=== PATIENT | male | born 1955 | race Caucasian/White ===

== ENCOUNTER 2023-03-02 16:53 | Observation (INO) | payer MEDICARE, SELFPAY ==
[2023-03-02] VITALS (38 sets, daily range): BP systolic 104–161; BP diastolic 56–72; PULSE 68–95; RESP 8–33; TEMP 36.8; O2SAT 93–100; BMI 27.2
--- NOTE | 2023-03-02 17:18 | ED_ITS ---
Documented by User: Kesha Martinez MD 03/04/23 08:45 HPI - Weakness General Chief complaint: Weakness Stated complaint: weakness, vomitting Time Seen by Provider: 03/02/23 17:16 Source: patient Mode of arrival: Wheelchair Limitations: no limitations History of Present Illness HPI Narrative: pt presents to the emergency department complaining of weakness. Patient states since yesterday been having nausea, vomiting, and diarrhea. He is vomiting bile. Has not been vomiting any fluid. He states the diarrhea is watery. He denies any hematemesis, melena, hematochezia. Denies any abdominal pain.Patient states he ate a lot of watermelon yesterday thought that that would account for the diarrhea but not with the vomiting. Related Data Home Medications Medication Instructions Recorded Confirmed apixaban 2.5 mg tablet (Eliquis) 2.5 mg PO BID 02/28/23 03/03/23 darunavir 800 mg-cobicistat 150 mg 1 tab PO DAILY 02/28/23 03/03/23 tablet (Prezcobix) digoxin 125 mcg (0.125 mg) tablet 125 mcg PO DAILY 02/28/23 03/03/23 (Lanoxin) dolutegravir 50 mg tablet (Tivicay) 50 mg PO DAILY 02/28/23 03/03/23 empagliflozin 10 mg tablet 10 mg PO QAM 02/28/23 03/03/23 (Jardiance) isosorbide mononitrate 30 mg 30 mg PO QAM 02/28/23 03/03/23 tablet,extended release 24 hr levothyroxine 50 mcg capsule 50 mcg PO DAILY 02/28/23 03/03/23 metformin 1,000 mg tablet 1,000 mg PO BID 02/28/23 03/03/23 metoprolol succinate 25 mg 25 mg PO DAILY 02/28/23 03/03/23 tablet,extended release 24 hr nitroglycerin 0.4 mg sublingual 0.4 mg sublingual Q5M PRN chest 02/28/23 03/03/23 tablet pain pregabalin 50 mg capsule (Lyrica) 50 mg PO TID 02/28/23 03/03/23 rosuvastatin 20 mg tablet (Crestor) 20 mg PO DAILY 02/28/23 03/03/23 tamsulosin 0.4 mg capsule (Flomax) 0.4 mg PO DAILY 02/28/23 03/03/23 pantoprazole 40 mg tablet,delayed 40 mg PO DAILY 03/03/23 03/03/23 release (Protonix) tramadol 50 mg tablet 50 mg PO Q12H PRN pain 03/03/23 03/03/23 Allergies Allergy/AdvReac Type Severity Reaction Status Date / Time ciprofloxacin Allergy Unknown Verified 02/28/23 14:44 Sulfa (Sulfonamide Allergy Unknown Verified 02/28/23 14:44 Antibiotics) Review of Systems ROS Status of ROS 10 or more systems reviewed and unremarkable except as noted in history and below [facility] Medical History (Updated 03/02/23 @ 23:49 by Ollie Marc MD) Surgical History (Updated 02/28/23 @ 14:30 by Andria Conrad) Family History (Updated 02/28/23 @ 14:47 by Andria Conrad) Sister Family history of cancer Ovarian cancer Other Family history of diabetes mellitus Heart disease Hemochromatosis Peripheral vascular disease Social History (Updated 02/28/23 @ 14:45 by Andria Conrad) Within the past year, how often did you have a drink containing alcohol: never Score interpretation: A score less than 4 is consistent with normal alcohol consumption. Smoking status: Never smoker Non-prescribed substance use: denies use Gender Identity: male Exam Narrative Exam Narrative: Nurses notes and vital signs reviewed and patient is not hypoxic. General: Nontoxic, Chronically ill, and in no apparent distress. Skin: Warm, dry, no pallor noted. No Rash Head: Normocephalic, atraumatic. Neck: Supple, non-tender. Eye: Pupils are equal, round and EOMI. No scleral icterus. Ears, Nose, Mouth, and Throat: TM clear, no posterior oropharynx erythema or nasal mucosal hypertrophy, uvula is mid-line Oral mucosa is dry Cardiovascular: Regular Rate and Rhythm without murmur, gallop or rub. Respiratory: No accessory muscle use or respiratory distress. Lungs are clear to auscultation, no wheezing, rales or rhonchi Chest Wall: no tenderness Back: No midline thoracic or lumbar vertebral tenderness. No CVA tenderness Musculoskeletal: normal ROM, no calf or popliteal tenderness, no lower extremity edema/swelling GI: Abdomen is soft, non-distended. Normal bowel sounds. No masses appreciated. No tenderness to palpation. No rebound, guarding, or rigidity noted. Neurological: A&O x4. No cranial nerve dysfunction observed. No truncal ataxia. Moves all extremities. Sensation intact. Psychiatric: Cooperative and interactive. Normal mood and affect. Constitutional Vital Signs - 24 hr 03/02/23 16:59 03/02/23 21:13 03/02/23 21:15 Temperature 98.3 F Pulse Rate 77 Pulse Rate [Monitor] 95 H Respiratory Rate 20 20 Blood Pressure Blood Pressure [Left Arm] 104/60 Pulse Oximetry 98 99 Oxygen Delivery Method Room Air Room Air 03/02/23 21:20 03/02/23 17:39 03/02/23 17:40 Temperature Pulse Rate 80 87 88 Pulse Rate [Monitor] Respiratory Rate 20 15 25 H Blood Pressure Blood Pressure [Left Arm] Pulse Oximetry 99 Oxygen Delivery Method 03/02/23 17:50 03/02/23 18:00 03/02/23 18:10 Temperature Pulse Rate 90 83 79 Pulse Rate [Monitor] Respiratory Rate 21 31 H 19 Blood Pressure Blood Pressure [Left Arm] Pulse Oximetry 99 95 94 L Oxygen Delivery Method 03/02/23 18:20 03/02/23 18:30 03/02/23 18:40 Temperature Pulse Rate 81 78 79 Pulse Rate [Monitor] Respiratory Rate 32 H 24 21 Blood Pressure Blood Pressure [Left Arm] Pulse Oximetry 97 96 96 Oxygen Delivery Method 03/02/23 18:50 03/02/23 19:00 03/02/23 19:10 Temperature Pulse Rate 75 79 77 Pulse Rate [Monitor] Respiratory Rate 32 H 26 H 33 H Blood Pressure Blood Pressure [Left Arm] Pulse Oximetry 97 97 97 Oxygen Delivery Method 03/02/23 19:20 03/02/23 19:30 03/02/23 19:40 Temperature Pulse Rate 79 82 76 Pulse Rate [Monitor] Respiratory Rate 23 17 19 Blood Pressure Blood Pressure [Left Arm] Pulse Oximetry 98 93 L 95 Oxygen Delivery Method 03/02/23 19:50 03/02/23 20:00 03/02/23 20:10 Temperature Pulse Rate 79 85 82 Pulse Rate [Monitor] Respiratory Rate 25 H 24 27 H Blood Pressure Blood Pressure [Left Arm] Pulse Oximetry 93 L Oxygen Delivery Method 03/02/23 20:20 03/02/23 20:30 03/02/23 20:40 Temperature Pulse Rate 82 81 87 Pulse Rate [Monitor] Respiratory Rate 21 27 H 15 Blood Pressure Blood Pressure [Left Arm] Pulse Oximetry Oxygen Delivery Method 03/02/23 20:46 03/02/23 20:46 03/02/23 21:03 Temperature Pulse Rate 78 88 77 Pulse Rate [Monitor] Respiratory Rate 30 H 22 30 H Blood Pressure 136/69 H Blood Pressure [Left Arm] Pulse Oximetry 97 97 97 Oxygen Delivery Method 03/02/23 21:10 03/02/23 21:20 03/02/23 21:30 Temperature Pulse Rate 79 79 79 Pulse Rate [Monitor] Respiratory Rate 27 H 30 H 29 H Blood Pressure Blood Pressure [Left Arm] Pulse Oximetry 100 96 98 Oxygen Delivery Method 03/02/23 21:40 03/02/23 21:47 03/02/23 21:47 Temperature Pulse Rate 75 90 79 Pulse Rate [Monitor] Respiratory Rate 26 H 32 H 31 H Blood Pressure 130/59 H Blood Pressure [Left Arm] Pulse Oximetry 93 L 99 95 Oxygen Delivery Method 03/02/23 22:00 03/02/23 22:00 03/02/23 22:30 Temperature Pulse Rate 85 83 86 Pulse Rate [Monitor] Respiratory Rate 20 30 H 17 Blood Pressure 139/64 H 139/64 H 129/56 H Blood Pressure [Left Arm] Pulse Oximetry 98 96 Oxygen Delivery Method 03/02/23 22:58 03/02/23 23:00 03/02/23 23:10 Temperature Pulse Rate 84 79 78 Pulse Rate [Monitor] Respiratory Rate 24 21 28 H Blood Pressure Blood Pressure [Left Arm] Pulse Oximetry 95 99 96 Oxygen Delivery Method Course Vital Signs Vital signs: Vital Signs Temperature 98.3 F 03/02/23 16:59 Pulse Rate 95 H 03/02/23 16:59 Respiratory Rate 20 03/02/23 16:59 Blood Pressure 104/60 03/02/23 16:59 Pulse Oximetry 98 03/02/23 16:59 Oxygen Delivery Method Room Air 03/02/23 16:59 Temperature 97.2 F L 03/04/23 06:30 Pulse Rate 63 03/04/23 08:06 Respiratory Rate 20 03/04/23 06:30 Blood Pressure 123/72 H 03/04/23 06:30 Pulse Oximetry 98 03/04/23 06:30 Oxygen Delivery Method Room Air 03/04/23 06:30 MDM - Weakness MDM Narrative Medical decision making narrative: pt was given Zofran, a liter of fluids. Labs and radiologic studies are pending at this time. Patient was signed out to Dr. Marc at the end of my shift awaiting repeat metabolic profile. Re evaluation, and disposition. Lab Data Labs: Lab Results 03/02/23 03/02/23 03/02/23 Range/Units 17:50 18:35 18:45 WBC 7.1 (4.0-11.0) 10^3/uL RBC 6.02 (4.70-6.10) 10^6/uL Hgb 17.7 (14.0-18.0) g/dL Hct 53.9 (42.0-54.0) % MCV 89.5 (80.0-94.0) fL MCH 29.4 (25.9-34.0) pg MCHC 32.8 (29.9-35.2) g/dL RDW 13.8 (11.0-15.0) % Plt Count 160 (150-450) 10^3/uL MPV 10.0 (9.5-13.5) fL Neut % (Auto) 88.6 H (43.0-75.0) % Lymph % (Auto) 4.8 L (20.5-60.0) % Simpson % (Auto) 5.2 (1.7-12.0) % Eos % (Auto) 0.7 L (0.9-7.0) % Baso % (Auto) 0.3 (0.2-2.0) % Neut # (Auto) 6.2 (1.4-6.5) 10^3/uL Lymph # (Auto) 0.3 L (1.2-3.8) 10^3/uL Simpson # (Auto) 0.4 (0.3-0.8) 10^3/uL Eos # (Auto) 0.1 (0.0-0.7) 10^3/uL Baso # (Auto) 0.0 (0.0-0.1) 10^3/uL Abs Immat Gran (auto) 0.03 (0.00-0.03) 10^3/uL Imm/Tot Granulo (auto) 0.4 (0.0-0.5) % Sodium 134 L 133 L (136-145) mmol/L Potassium 7.0 H* 7.3 H* (3.5-5.1) mmol/L Chloride 101 103 (98-107) mmol/L Carbon Dioxide 23.3 22.6 (21.0-32.0) mmol/L Anion Gap 16.7 14.7 BUN 42.0 H 42.0 H (7.0-18.0) mg/dL Creatinine 2.51 H 2.42 H (0.70-1.30) mg/dL Est GFR ( Amer) 31 L 32 L (>=60) Est GFR (Non-Af Amer) 26 L 27 L (>=60) BUN/Creatinine Ratio 16.7 17.4 Glucose 205 H 196 H (74-106) mg/dL Calcium 9.5 8.6 (8.5-10.1) mg/dL Magnesium 2.2 (1.8-2.4) mg/dL Total Bilirubin 0.5 (0.2-1.0) mg/dL AST 21 (15-37) U/L ALT 26 (16-63) U/L Alkaline Phosphatase 87 (46-116) U/L Total Protein 9.3 H (6.4-8.2) g/dL Albumin 4.5 (3.4-5.0) g/dL Globulin 4.8 g/dL Albumin/Globulin Ratio 0.9 Lipase 205.0 (73.0-393.0) U/L Urine Color (YELLOW) Urine Clarity (CLEAR) Urine pH (5.0-9.0) Ur Specific [place] (1.005-1.025) Urine Protein (NEG/TRACE) mg/dL Urine Glucose (UA) (NEGATIVE) mg/dL Urine Ketones (NEGATIVE) mg/dL Urine Occult Blood (NEGATIVE) Urine Nitrite (NEGATIVE) Urine Bilirubin (NEGATIVE) Urine Urobilinogen (0.2-1.0) EU/dL Ur Leukocyte Esterase (NEGATIVE) Digoxin 1.1 (0.9-2.0) ng/mL 03/02/23 03/02/23 Range/Units 22:00 23:00 WBC (4.0-11.0) 10^3/uL RBC (4.70-6.10) 10^6/uL Hgb (14.0-18.0) g/dL Hct (42.0-54.0) % MCV (80.0-94.0) fL MCH (25.9-34.0) pg MCHC (29.9-35.2) g/dL RDW (11.0-15.0) % Plt Count (150-450) 10^3/uL MPV (9.5-13.5) fL Neut % (Auto) (43.0-75.0) % Lymph % (Auto) (20.5-60.0) % Simpson % (Auto) (1.7-12.0) % Eos % (Auto) (0.9-7.0) % Baso % (Auto) (0.2-2.0) % Neut # (Auto) (1.4-6.5) 10^3/uL Lymph # (Auto) (1.2-3.8) 10^3/uL Simpson # (Auto) (0.3-0.8) 10^3/uL Eos # (Auto) (0.0-0.7) 10^3/uL Baso # (Auto) (0.0-0.1) 10^3/uL Abs Immat Gran (auto) (0.00-0.03) 10^3/uL Imm/Tot Granulo (auto) (0.0-0.5) % Sodium 135 L (136-145) mmol/L Potassium 4.6 (3.5-5.1) mmol/L Chloride 104 (98-107) mmol/L Carbon Dioxide 21.2 (21.0-32.0) mmol/L Anion Gap 14.4 BUN 40.0 H (7.0-18.0) mg/dL Creatinine 2.34 H (0.70-1.30) mg/dL Est GFR ( Amer) 34 L (>=60) Est GFR (Non-Af Amer) 28 L (>=60) BUN/Creatinine Ratio 17.1 Glucose 160 H (74-106) mg/dL Calcium 8.7 (8.5-10.1) mg/dL Magnesium (1.8-2.4) mg/dL Total Bilirubin (0.2-1.0) mg/dL AST (15-37) U/L ALT (16-63) U/L Alkaline Phosphatase (46-116) U/L Total Protein (6.4-8.2) g/dL Albumin (3.4-5.0) g/dL Globulin g/dL Albumin/Globulin Ratio Lipase (73.0-393.0) U/L Urine Color Lt. yellow (YELLOW) Urine Clarity Clear (CLEAR) Urine pH 5.5 (5.0-9.0) Ur Specific [place] 1.015 (1.005-1.025) Urine Protein Negative (NEG/TRACE) mg/dL Urine Glucose (UA) >=1000 A (NEGATIVE) mg/dL Urine Ketones Negative (NEGATIVE) mg/dL Urine Occult Blood Negative (NEGATIVE) Urine Nitrite Negative (NEGATIVE) Urine Bilirubin Negative (NEGATIVE) Urine Urobilinogen 0.2 (0.2-1.0) EU/dL Ur Leukocyte Esterase Negative (NEGATIVE) Digoxin (0.9-2.0) ng/mL Discharge Plan Discharge Chief Complaint: Weakness Clinical Impression: Weakness generalized, Gastroenteritis, Acute kidney insufficiency, Acute hyperkalemia Patient Disposition: Admitted as Observation Condition: Fair Discharge Date/Time: 03/03/23 00:18 Documented by User: Ollie Marc MD 03/02/23 23:49 HPI - Weakness General Chief complaint: Weakness Stated complaint: weakness, vomitting Time Seen by Provider: 03/02/23 17:16 Related Data Home Medications Medication Instructions Recorded Confirmed apixaban 2.5 mg tablet (Eliquis) 2.5 mg PO BID 02/28/23 03/03/23 darunavir 800 mg-cobicistat 150 mg 1 tab PO DAILY 02/28/23 03/03/23 tablet (Prezcobix) digoxin 125 mcg (0.125 mg) tablet 125 mcg PO DAILY 02/28/23 03/03/23 (Lanoxin) dolutegravir 50 mg tablet (Tivicay) 50 mg PO DAILY 02/28/23 03/03/23 empagliflozin 10 mg tablet 10 mg PO QAM 02/28/23 03/03/23 (Jardiance) isosorbide mononitrate 30 mg 30 mg PO QAM 02/28/23 03/03/23 tablet,extended release 24 hr levothyroxine 50 mcg capsule 50 mcg PO DAILY 02/28/23 03/03/23 metformin 1,000 mg tablet 1,000 mg PO BID 02/28/23 03/03/23 metoprolol succinate 25 mg 25 mg PO DAILY 02/28/23 03/03/23 tablet,extended release 24 hr nitroglycerin 0.4 mg sublingual 0.4 mg sublingual Q5M PRN chest 02/28/23 03/03/23 tablet pain pregabalin 50 mg capsule (Lyrica) 50 mg PO TID 02/28/23 03/03/23 rosuvastatin 20 mg tablet (Crestor) 20 mg PO DAILY 02/28/23 03/03/23 tamsulosin 0.4 mg capsule (Flomax) 0.4 mg PO DAILY 02/28/23 03/03/23 pantoprazole 40 mg tablet,delayed 40 mg PO DAILY 03/03/23 03/03/23 release (Protonix) tramadol 50 mg tablet 50 mg PO Q12H PRN pain 03/03/23 03/03/23 Allergies Allergy/AdvReac Type Severity Reaction Status Date / Time ciprofloxacin Allergy Unknown Verified 02/28/23 14:44 Sulfa (Sulfonamide Allergy Unknown Verified 02/28/23 14:44 Antibiotics) [facility] Medical History (Updated 03/02/23 @ 23:49 by Ollie Marc MD) Surgical History (Updated 02/28/23 @ 14:30 by Andria Conrad) Family History (Updated 02/28/23 @ 14:47 by Andria Conrad) Sister Family history of cancer Ovarian cancer Other Family history of diabetes mellitus Heart disease Hemochromatosis Peripheral vascular disease Social History (Updated 02/28/23 @ 14:45 by Andria Conrad) Within the past year, how often did you have a drink containing alcohol: never Score interpretation: A score less than 4 is consistent with normal alcohol consumption. Smoking status: Never smoker Non-prescribed substance use: denies use Gender Identity: male Exam Constitutional Vital Signs - 24 hr 03/02/23 16:59 03/02/23 21:13 03/02/23 21:15 Temperature 98.3 F Pulse Rate 77 Pulse Rate [Monitor] 95 H Respiratory Rate 20 20 Blood Pressure Blood Pressure [Left Arm] 104/60 Pulse Oximetry 98 99 Oxygen Delivery Method Room Air Room Air 03/02/23 21:20 03/02/23 17:39 03/02/23 17:40 Temperature Pulse Rate 80 87 88 Pulse Rate [Monitor] Respiratory Rate 20 15 25 H Blood Pressure Blood Pressure [Left Arm] Pulse Oximetry 99 Oxygen Delivery Method 03/02/23 17:50 03/02/23 18:00 03/02/23 18:10 Temperature Pulse Rate 90 83 79 Pulse Rate [Monitor] Respiratory Rate 21 31 H 19 Blood Pressure Blood Pressure [Left Arm] Pulse Oximetry 99 95 94 L Oxygen Delivery Method 03/02/23 18:20 03/02/23 18:30 03/02/23 18:40 Temperature Pulse Rate 81 78 79 Pulse Rate [Monitor] Respiratory Rate 32 H 24 21 Blood Pressure Blood Pressure [Left Arm] Pulse Oximetry 97 96 96 Oxygen Delivery Method 03/02/23 18:50 03/02/23 19:00 03/02/23 19:10 Temperature Pulse Rate 75 79 77 Pulse Rate [Monitor] Respiratory Rate 32 H 26 H 33 H Blood Pressure Blood Pressure [Left Arm] Pulse Oximetry 97 97 97 Oxygen Delivery Method 03/02/23 19:20 03/02/23 19:30 03/02/23 19:40 Temperature Pulse Rate 79 82 76 Pulse Rate [Monitor] Respiratory Rate 23 17 19 Blood Pressure Blood Pressure [Left Arm] Pulse Oximetry 98 93 L 95 Oxygen Delivery Method 03/02/23 19:50 03/02/23 20:00 03/02/23 20:10 Temperature Pulse Rate 79 85 82 Pulse Rate [Monitor] Respiratory Rate 25 H 24 27 H Blood Pressure Blood Pressure [Left Arm] Pulse Oximetry 93 L Oxygen Delivery Method 03/02/23 20:20 03/02/23 20:30 03/02/23 20:40 Temperature Pulse Rate 82 81 87 Pulse Rate [Monitor] Respiratory Rate 21 27 H 15 Blood Pressure Blood Pressure [Left Arm] Pulse Oximetry Oxygen Delivery Method 03/02/23 20:46 03/02/23 20:46 03/02/23 21:03 Temperature Pulse Rate 78 88 77 Pulse Rate [Monitor] Respiratory Rate 30 H 22 30 H Blood Pressure 136/69 H Blood Pressure [Left Arm] Pulse Oximetry 97 97 97 Oxygen Delivery Method 03/02/23 21:10 03/02/23 21:20 03/02/23 21:30 Temperature Pulse Rate 79 79 79 Pulse Rate [Monitor] Respiratory Rate 27 H 30 H 29 H Blood Pressure Blood Pressure [Left Arm] Pulse Oximetry 100 96 98 Oxygen Delivery Method 03/02/23 21:40 03/02/23 21:47 03/02/23 21:47 Temperature Pulse Rate 75 90 79 Pulse Rate [Monitor] Respiratory Rate 26 H 32 H 31 H Blood Pressure 130/59 H Blood Pressure [Left Arm] Pulse Oximetry 93 L 99 95 Oxygen Delivery Method 03/02/23 22:00 03/02/23 22:00 03/02/23 22:30 Temperature Pulse Rate 85 83 86 Pulse Rate [Monitor] Respiratory Rate 20 30 H 17 Blood Pressure 139/64 H 139/64 H 129/56 H Blood Pressure [Left Arm] Pulse Oximetry 98 96 Oxygen Delivery Method 03/02/23 22:58 03/02/23 23:00 03/02/23 23:10 Temperature Pulse Rate 84 79 78 Pulse Rate [Monitor] Respiratory Rate 24 21 28 H Blood Pressure Blood Pressure [Left Arm] Pulse Oximetry 95 99 96 Oxygen Delivery Method Course Vital Signs Vital signs: Vital Signs Temperature 98.3 F 03/02/23 16:59 Pulse Rate 95 H 03/02/23 16:59 Respiratory Rate 20 03/02/23 16:59 Blood Pressure 104/60 03/02/23 16:59 Pulse Oximetry 98 03/02/23 16:59 Oxygen Delivery Method Room Air 03/02/23 16:59 Temperature 97.2 F L 03/04/23 06:30 Pulse Rate 63 03/04/23 08:06 Respiratory Rate 20 03/04/23 06:30 Blood Pressure 123/72 H 03/04/23 06:30 Pulse Oximetry 98 03/04/23 06:30 Oxygen Delivery Method Room Air 03/04/23 06:30 MDM - Weakness Medical Records Medical records narrative: care transferred at change of shift. patient presented with recurrent nausea, vomiting and diarrhea. Found to be dehydrated and also hyperkalemic. Hyperkalemia treated in the ED successfully. Discussed with the hospitalist and patient admitted to the hospitalist service Lab Data Labs: Lab Results 03/02/23 03/02/23 03/02/23 Range/Units 17:50 18:35 18:45 WBC 7.1 (4.0-11.0) 10^3/uL RBC 6.02 (4.70-6.10) 10^6/uL Hgb 17.7 (14.0-18.0) g/dL Hct 53.9 (42.0-54.0) % MCV 89.5 (80.0-94.0) fL MCH 29.4 (25.9-34.0) pg MCHC 32.8 (29.9-35.2) g/dL RDW 13.8 (11.0-15.0) % Plt Count 160 (150-450) 10^3/uL MPV 10.0 (9.5-13.5) fL Neut % (Auto) 88.6 H (43.0-75.0) % Lymph % (Auto) 4.8 L (20.5-60.0) % Simpson % (Auto) 5.2 (1.7-12.0) % Eos % (Auto) 0.7 L (0.9-7.0) % Baso % (Auto) 0.3 (0.2-2.0) % Neut # (Auto) 6.2 (1.4-6.5) 10^3/uL Lymph # (Auto) 0.3 L (1.2-3.8) 10^3/uL Simpson # (Auto) 0.4 (0.3-0.8) 10^3/uL Eos # (Auto) 0.1 (0.0-0.7) 10^3/uL Baso # (Auto) 0.0 (0.0-0.1) 10^3/uL Abs Immat Gran (auto) 0.03 (0.00-0.03) 10^3/uL Imm/Tot Granulo (auto) 0.4 (0.0-0.5) % Sodium 134 L 133 L (136-145) mmol/L Potassium 7.0 H* 7.3 H* (3.5-5.1) mmol/L Chloride 101 103 (98-107) mmol/L Carbon Dioxide 23.3 22.6 (21.0-32.0) mmol/L Anion Gap 16.7 14.7 BUN 42.0 H 42.0 H (7.0-18.0) mg/dL Creatinine 2.51 H 2.42 H (0.70-1.30) mg/dL Est GFR ( Amer) 31 L 32 L (>=60) Est GFR (Non-Af Amer) 26 L 27 L (>=60) BUN/Creatinine Ratio 16.7 17.4 Glucose 205 H 196 H (74-106) mg/dL Calcium 9.5 8.6 (8.5-10.1) mg/dL Magnesium 2.2 (1.8-2.4) mg/dL Total Bilirubin 0.5 (0.2-1.0) mg/dL AST 21 (15-37) U/L ALT 26 (16-63) U/L Alkaline Phosphatase 87 (46-116) U/L Total Protein 9.3 H (6.4-8.2) g/dL Albumin 4.5 (3.4-5.0) g/dL Globulin 4.8 g/dL Albumin/Globulin Ratio 0.9 Lipase 205.0 (73.0-393.0) U/L Urine Color (YELLOW) Urine Clarity (CLEAR) Urine pH (5.0-9.0) Ur Specific [place] (1.005-1.025) Urine Protein (NEG/TRACE) mg/dL Urine Glucose (UA) (NEGATIVE) mg/dL Urine Ketones (NEGATIVE) mg/dL Urine Occult Blood (NEGATIVE) Urine Nitrite (NEGATIVE) Urine Bilirubin (NEGATIVE) Urine Urobilinogen (0.2-1.0) EU/dL Ur Leukocyte Esterase (NEGATIVE) Digoxin 1.1 (0.9-2.0) ng/mL 03/02/23 03/02/23 Range/Units 22:00 23:00 WBC (4.0-11.0) 10^3/uL RBC (4.70-6.10) 10^6/uL Hgb (14.0-18.0) g/dL Hct (42.0-54.0) % MCV (80.0-94.0) fL MCH (25.9-34.0) pg MCHC (29.9-35.2) g/dL RDW (11.0-15.0) % Plt Count (150-450) 10^3/uL MPV (9.5-13.5) fL Neut % (Auto) (43.0-75.0) % Lymph % (Auto) (20.5-60.0) % Simpson % (Auto) (1.7-12.0) % Eos % (Auto) (0.9-7.0) % Baso % (Auto) (0.2-2.0) % Neut # (Auto) (1.4-6.5) 10^3/uL Lymph # (Auto) (1.2-3.8) 10^3/uL Simpson # (Auto) (0.3-0.8) 10^3/uL Eos # (Auto) (0.0-0.7) 10^3/uL Baso # (Auto) (0.0-0.1) 10^3/uL Abs Immat Gran (auto) (0.00-0.03) 10^3/uL Imm/Tot Granulo (auto) (0.0-0.5) % Sodium 135 L (136-145) mmol/L Potassium 4.6 (3.5-5.1) mmol/L Chloride 104 (98-107) mmol/L Carbon Dioxide 21.2 (21.0-32.0) mmol/L Anion Gap 14.4 BUN 40.0 H (7.0-18.0) mg/dL Creatinine 2.34 H (0.70-1.30) mg/dL Est GFR ( Amer) 34 L (>=60) Est GFR (Non-Af Amer) 28 L (>=60) BUN/Creatinine Ratio 17.1 Glucose 160 H (74-106) mg/dL Calcium 8.7 (8.5-10.1) mg/dL Magnesium (1.8-2.4) mg/dL Total Bilirubin (0.2-1.0) mg/dL AST (15-37) U/L ALT (16-63) U/L Alkaline Phosphatase (46-116) U/L Total Protein (6.4-8.2) g/dL Albumin (3.4-5.0) g/dL Globulin g/dL Albumin/Globulin Ratio Lipase (73.0-393.0) U/L Urine Color Lt. yellow (YELLOW) Urine Clarity Clear (CLEAR) Urine pH 5.5 (5.0-9.0) Ur Specific [place] 1.015 (1.005-1.025) Urine Protein Negative (NEG/TRACE) mg/dL Urine Glucose (UA) >=1000 A (NEGATIVE) mg/dL Urine Ketones Negative (NEGATIVE) mg/dL Urine Occult Blood Negative (NEGATIVE) Urine Nitrite Negative (NEGATIVE) Urine Bilirubin Negative (NEGATIVE) Urine Urobilinogen 0.2 (0.2-1.0) EU/dL Ur Leukocyte Esterase Negative (NEGATIVE) Digoxin (0.9-2.0) ng/mL Discharge Plan Discharge Chief Complaint: Weakness Clinical Impression: Weakness generalized, Gastroenteritis, Acute kidney insufficiency, Acute hyperkalemia Patient Disposition: Admitted as Observation Condition: Fair Discharge Date/Time: 03/03/23 00:18
--- NOTE | 2023-03-02 17:34 | ECG_ITS ---
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
[2023-03-02 17:58] LABS: Basophils Percent Auto 0.3 % (0.2-2.0); Eosinophils Absolute Auto 0.1 10^3/uL (0.0-0.7); Eosinophils Percent Auto 0.7 % (0.9-7.0); Hematocrit 53.9 % (42.0-54.0); Hemoglobin 17.7 g/dL (14.0-18.0); Immature Granulocytes Abs Auto 0.03 10^3/uL (0.00-0.03); Immature Granulocytes Pct Auto 0.4 % (0.0-0.5); Lymphocytes Absolute Auto 0.3 10^3/uL (1.2-3.8); Lymphocytes Percent Auto 4.8 % (20.5-60.0); Mean Corpuscular HGB Conc 32.8 g/dL (29.9-35.2); Mean Corpuscular Hemoglobin 29.4 pg (25.9-34.0); Mean Corpuscular Volume 89.5 fL (80.0-94.0); Monocytes Absolute Auto 0.4 10^3/uL (0.3-0.8); Monocytes Percent Auto 5.2 % (1.7-12.0); Neutrophils Absolute Auto 6.2 10^3/uL (1.4-6.5); Neutrophils Percent Auto 88.6 % (43.0-75.0); Platelet Count 160 10^3/uL (150-450); Red Blood Count 6.02 10^6/uL (4.70-6.10); Red Cell Distribution Width 13.8 % (11.0-15.0); White Blood Count 7.1 10^3/uL (4.0-11.0)
[2023-03-02] MEDS: 0.9 % SODIUM CHLORIDE 1,000 ML 999 ML IV ×2 (18:02→20:47)
[2023-03-02] MEDS: ONDANSETRON PF 4 MG/2 ML VIAL IV (18:02)
[2023-03-02 18:28] LABS: Alanine Aminotransferase 26 U/L (16-63); Albumin Globulin Ratio 0.9; Albumin Level 4.5 g/dL (3.4-5.0); Alkaline Phosphatase 87 U/L (46-116); Anion Gap 16.7; Aspartate Amino Transferase 21 U/L (15-37); BUN Creatinine Ratio 16.7; Bilirubin Total 0.5 mg/dL (0.2-1.0); Calcium 9.5 mg/dL (8.5-10.1); Carbon Dioxide 23.3 mmol/L (21.0-32.0); Chloride 101 mmol/L (98-107); Estimated GFR (African America 31 (>=60); Estimated GFR (Non-African Ame 26 (>=60); Globulin 4.8 g/dL; Glucose 205 mg/dL (74-106); Magnesium 2.2 mg/dL (1.8-2.4); Sodium 134 mmol/L (136-145); Total Protein 9.3 g/dL (6.4-8.2)
[2023-03-02 19:03] LABS: Anion Gap 14.7; BUN Creatinine Ratio 17.4; Calcium 8.6 mg/dL (8.5-10.1); Carbon Dioxide 22.6 mmol/L (21.0-32.0); Chloride 103 mmol/L (98-107); Estimated GFR (African America 32 (>=60); Estimated GFR (Non-African Ame 27 (>=60); Glucose 196 mg/dL (74-106); Sodium 133 mmol/L (136-145)
[2023-03-02 19:10] LABS: Potassium 7.3 mmol/L (3.5-5.1)
[2023-03-02 19:14] LABS: Digoxin 1.1 ng/mL (0.9-2.0)
[2023-03-02] MEDS: INSULIN REGULAR 300 UNITS/3 ML 300 UNIT (20:11)
[2023-03-02] MEDS: CALCIUM GLUCONATE 1,000 MG/10 ML VIAL 1000 MG (20:19)
[2023-03-02] MEDS: DEXTROSE 50 %-WATER 25 GM/50 ML SYRINGE IV (20:27)
[2023-03-02] MEDS: 0.9 % SODIUM CHLORIDE 10 ML SYRINGE - SALINE FLUSH 50 ML IV (21:01)
[2023-03-02] MEDS: ALBUTEROL SULFATE 2.5 MG/3 ML VIAL NEB (21:13)
--- NOTE | 2023-03-02 21:35 | PC.NURSE ---
respiratory at the bedside with albuterol breathing treatment
[2023-03-02 22:46] LABS: Anion Gap 14.4; BUN Creatinine Ratio 17.1; Calcium 8.7 mg/dL (8.5-10.1); Carbon Dioxide 21.2 mmol/L (21.0-32.0); Chloride 104 mmol/L (98-107); Estimated GFR (African America 34 (>=60); Estimated GFR (Non-African Ame 28 (>=60); Glucose 160 mg/dL (74-106); Potassium 4.6 mmol/L (3.5-5.1); Sodium 135 mmol/L (136-145)
[2023-03-02 23:13] LABS: Bilirubin Urine NEGATIVE (NEGATIVE); Blood Urine NEGATIVE (NEGATIVE); Clarity Urine CLEAR (CLEAR); Color Urine LT. YELLOW (YELLOW); Glucose Urine UA >=1000 mg/dL (NEGATIVE); Ketones Urine NEGATIVE (NEGATIVE); Leukocyte Esterase Urine NEGATIVE (NEGATIVE); Nitrite Urine NEGATIVE (NEGATIVE); Protein Urine NEGATIVE (NEG/TRACE); Specific Gravity Urine 1.015 (1.005-1.025); Urobilinogen Urine 0.2 EU/dL (0.2-1.0); pH Urine 5.5 (5.0-9.0)
[2023-03-03] VITALS (25 sets, daily range): BP systolic 132–154; BP diastolic 71–81; PULSE 67–110; RESP 10–22; TEMP 36.3–39.4; O2SAT 93–98; BMI 26.8
--- NOTE | 2023-03-03 02:05 | P.PN_ITS ---
Progress Note: Subjective Subjective Interval history: Chief complaint nausea vomiting diarrhea HPI: 68-year-old male with history of HIV, AFib on Eliquis, diabetes mellitus type 2, hypothyroidism, hyperlipidemia who presents to the hospital with 1 day of abdominal discomfort associated with nausea vomiting diarrhea. He denies any food poisoning, exposure to sick contacts, reports his HIV is under control. Denies any dizziness, confusion, chest pain, hematemesis, blood in stool, rashes. Denies using NSAIDs. Comes to the ER for evaluation. Upon arrival to the ER vital stable, labs remarkable for creatinine 2.4 unknown baseline, potassium near 7 given hyperkalemia treatment and repeat potassium level 4.5. Patient producing urine. Hospital Medicine consulted for admission. Patient evaluated at bedside reports his symptoms have self resolved now. Patient received fluids in the ER. Review of systems: All 14 review of systems negative except for HPI past medical history: CAD, AFib, HIV, DM II, HTN, HDL, hypothyroid past surgical history: CABG, home medications: Reviewed and in chart social history: Denies alcohol, tobacco or illicit drug use, independent of daily activities physical exam: Vitals per chart. BP 154/75, pulse 80, RR 18, temp 98.8?, 95% on room air general: Lying in bed, no acute distress, alert and oriented x3, appears stated age HEENT: Normocephalic atraumatic, trachea midline, EOMI CVS: Regular rate and rhythm, no peripheral edema lungs: Bilateral air entry, normal respiratory effort abdomen: soft, nontender, no visible masses neuro: No focal deficits psych: Normal affect Exam Constitutional Vital Signs - 24 hr 03/02/23 16:59 03/02/23 21:13 03/02/23 21:15 Temperature 98.3 F Pulse Rate 77 Pulse Rate [Monitor] 95 H Respiratory Rate 20 20 Blood Pressure Blood Pressure [Left Arm] 104/60 Pulse Oximetry 98 99 Oxygen Delivery Method Room Air Room Air 03/02/23 21:20 03/02/23 17:39 03/02/23 17:40 Temperature Pulse Rate 80 87 88 Pulse Rate [Monitor] Respiratory Rate 20 15 25 H Blood Pressure Blood Pressure [Left Arm] Pulse Oximetry 99 Oxygen Delivery Method 03/02/23 17:50 03/02/23 18:00 03/02/23 18:10 Temperature Pulse Rate 90 83 79 Pulse Rate [Monitor] Respiratory Rate 21 31 H 19 Blood Pressure Blood Pressure [Left Arm] Pulse Oximetry 99 95 94 L Oxygen Delivery Method 03/02/23 18:20 03/02/23 18:30 03/02/23 18:40 Temperature Pulse Rate 81 78 79 Pulse Rate [Monitor] Respiratory Rate 32 H 24 21 Blood Pressure Blood Pressure [Left Arm] Pulse Oximetry 97 96 96 Oxygen Delivery Method 03/02/23 18:50 03/02/23 19:00 03/02/23 19:10 Temperature Pulse Rate 75 79 77 Pulse Rate [Monitor] Respiratory Rate 32 H 26 H 33 H Blood Pressure Blood Pressure [Left Arm] Pulse Oximetry 97 97 97 Oxygen Delivery Method 03/02/23 19:20 03/02/23 19:30 03/02/23 19:40 Temperature Pulse Rate 79 82 76 Pulse Rate [Monitor] Respiratory Rate 23 17 19 Blood Pressure Blood Pressure [Left Arm] Pulse Oximetry 98 93 L 95 Oxygen Delivery Method 03/02/23 19:50 03/02/23 20:00 03/02/23 20:10 Temperature Pulse Rate 79 85 82 Pulse Rate [Monitor] Respiratory Rate 25 H 24 27 H Blood Pressure Blood Pressure [Left Arm] Pulse Oximetry 93 L Oxygen Delivery Method 03/02/23 20:20 03/02/23 20:30 03/02/23 20:40 Temperature Pulse Rate 82 81 87 Pulse Rate [Monitor] Respiratory Rate 21 27 H 15 Blood Pressure Blood Pressure [Left Arm] Pulse Oximetry Oxygen Delivery Method 03/02/23 20:46 03/02/23 20:46 03/02/23 21:03 Temperature Pulse Rate 78 88 77 Pulse Rate [Monitor] Respiratory Rate 30 H 22 30 H Blood Pressure 136/69 H Blood Pressure [Left Arm] Pulse Oximetry 97 97 97 Oxygen Delivery Method 03/02/23 21:10 03/02/23 21:20 03/02/23 21:30 Temperature Pulse Rate 79 79 79 Pulse Rate [Monitor] Respiratory Rate 27 H 30 H 29 H Blood Pressure Blood Pressure [Left Arm] Pulse Oximetry 100 96 98 Oxygen Delivery Method 03/02/23 21:40 03/02/23 21:47 03/02/23 21:47 Temperature Pulse Rate 75 90 79 Pulse Rate [Monitor] Respiratory Rate 26 H 32 H 31 H Blood Pressure 130/59 H Blood Pressure [Left Arm] Pulse Oximetry 93 L 99 95 Oxygen Delivery Method 03/02/23 22:00 03/02/23 22:00 03/02/23 22:30 Temperature Pulse Rate 85 83 86 Pulse Rate [Monitor] Respiratory Rate 20 30 H 17 Blood Pressure 139/64 H 139/64 H 129/56 H Blood Pressure [Left Arm] Pulse Oximetry 98 96 Oxygen Delivery Method 03/02/23 22:58 03/02/23 23:00 03/02/23 23:10 Temperature Pulse Rate 84 79 78 Pulse Rate [Monitor] Respiratory Rate 24 21 28 H Blood Pressure Blood Pressure [Left Arm] Pulse Oximetry 95 99 96 Oxygen Delivery Method 03/02/23 23:20 03/02/23 23:30 03/02/23 23:31 Temperature Pulse Rate 78 77 92 H Pulse Rate [Monitor] Respiratory Rate 8 L 26 H 19 Blood Pressure 161/72 H Blood Pressure [Left Arm] Pulse Oximetry 96 96 96 Oxygen Delivery Method 03/03/23 00:20 03/02/23 23:31 03/03/23 00:12 Temperature Pulse Rate 84 88 Pulse Rate [Monitor] Respiratory Rate 17 Blood Pressure 161/72 H Blood Pressure [Left Arm] Pulse Oximetry Oxygen Delivery Method 03/03/23 00:20 03/03/23 00:55 03/03/23 00:55 Temperature 98.8 F Pulse Rate 89 88 Pulse Rate [Monitor] 88 Respiratory Rate 10 L 18 18 Blood Pressure Blood Pressure [Left Arm] 154/75 H Pulse Oximetry 95 95 Oxygen Delivery Method Room Air Room Air 03/03/23 02:00 Temperature Pulse Rate 84 Pulse Rate [Monitor] Respiratory Rate Blood Pressure Blood Pressure [Left Arm] Pulse Oximetry Oxygen Delivery Method Progress Note: Objective Labs Labs: Short CBC 03/02/23 Range/Units 17:50 WBC 7.1 (4.0-11.0) 10^3/uL Hgb 17.7 (14.0-18.0) g/dL Hct 53.9 (42.0-54.0) % Plt Count 160 (150-450) 10^3/uL BMP 03/02/23 03/02/23 03/02/23 17:50 18:35 22:00 Sodium 134 L 133 L 135 L Potassium 7.0 H* 7.3 H* 4.6 Chloride 101 103 104 Carbon Dioxide 23.3 22.6 21.2 BUN 42.0 H 42.0 H 40.0 H Creatinine 2.51 H 2.42 H 2.34 H Glucose 205 H 196 H 160 H Calcium 9.5 8.6 8.7 Liver Function 03/02/23 Range/Units 17:50 Total Bilirubin 0.5 (0.2-1.0) mg/dL AST 21 (15-37) U/L ALT 26 (16-63) U/L Alkaline Phosphatase 87 (46-116) U/L Albumin 4.5 (3.4-5.0) g/dL Urine 03/02/23 Range/Units 23:00 Urine Color Lt. yellow (YELLOW) Urine Clarity Clear (CLEAR) Urine pH 5.5 (5.0-9.0) Ur Specific [place] 1.015 (1.005-1.025) Urine Protein Negative (NEG/TRACE) mg/dL Urine Glucose (UA) >=1000 A (NEGATIVE) mg/dL Progress Note: A&P Assessment and Plan (1) Weakness generalized: (2) Gastroenteritis: (3) Acute kidney insufficiency: (4) Acute hyperkalemia: Plan impression # acute gastroenteritis, resolving -supportive care with fluid hydration, analgesics and antiemetics as needed. Clear liquid diet and advance diet as tolerated. Patient reports no further diarrhea if diarrhea persists will check stool studies # elevated creatinine with unknown baseline, suspect dehydration acute kidney injury. IV fluids, recheck GFR, obtain outside records. Check renal ultrasound rule out obstructive uropathy # hyperkalemia - resolved with ER treatment of hyperkalemia with sodium bicarb, albuterol, Kayexalate, insulin/dextrose. Recheck BMP in few hours # HIV - to order antiretrovirals renally dosed. Unknown CD4 count # diabetes mellitus type 2-hold metformin in setting of renal failure. Low carb diet, sliding scale insulin coverage # paroxysmal atrial fibrillation -resume home Eliquis, Toprol-XL, hold digoxin and renal failure, digoxin level acceptable # CAD - denies any active chest pain # hypertension- resume home metoprolol # BPH-resume home Flomax -check bladder scan p.r.n. DVT prophylaxis-home Eliquis goals of care-DNR CCA medication review -medication reconciliation in process communications: Discussed with emergency room physician, bedside nurse, patient updated a plan of care, all questions answered to their satisfaction disposition -home when medically stable telemedicine clause- as a provider of this telehealth evaluation, requested by the patient's evaluating physician, I attest that I introduced myself to the patient, provided my credentials and determined that telemedicine via a real-time 2 way interactive audio and video platform is an appropriate and effective means of providing this service. I reviewed the patient's chart and had a discussion with the member of the patient's treatment team. The patient and I mutually agreed with continuation of this evaluation via telemedicine. The patient consented for the telemedicine evaluation. This virtual encounter was taking place from [place]. The encounter was approximately 30 minutes. The nurse was present during the entire time of encounter and was able to move the stethoscope in appropriate directions. Patient was evaluated at 0100 Telemedicine Attestation Telemedicine Attestation I conducted this encounter from [ [place]] via secure live, [id number] video conference with the patient, CHARGE TEST-CHARGES located at [facility]. Prior to the interview, the risks and benefits of telemedicine were discussed with the patient and verbal consent was obtained.
[2023-03-03 02:11] LABS: BUN Creatinine Ratio 17.8; Calcium 8.9 mg/dL (8.5-10.1); Carbon Dioxide 21.8 mmol/L (21.0-32.0); Chloride 106 mmol/L (98-107); Estimated GFR (African America 36 (>=60); Estimated GFR (Non-African Ame 30 (>=60); Glucose 133 mg/dL (74-106); Potassium 4.8 mmol/L (3.5-5.1); Sodium 138 mmol/L (136-145)
--- NOTE | 2023-03-03 02:17 | US_ITS ---
The [address] [address] Patient Name: PARISH RAY MRN: [id number] date: 1955 Sex: M Assigned Patient Location: [place] Current Patient Location: [place] Accession/Order Number: [id number] Exam Date: 03/03/2023 08:12 Report Date: 03/03/2023 09:09 At the request of: DUY FOREMAN Procedure: US renal bladder EXAMINATION: US renal bladder HISTORY: acute renal failure , nausea, vomiting, diarrhea COMPARISON: No relevant comparison available. TECHNIQUE: Ultrasound examination was performed of the kidneys and urinary bladder. FINDINGS: RIGHT KIDNEY: No evidence of pelvocaliectasis, mass, or calculi. Normal renal cortical parenchymal echogenicity. Color Doppler demonstrates blood flow within the kidney. Kidney: 10.5 x 5.9 x 5.6 cm LEFT KIDNEY: No evidence of pelvocaliectasis, mass, or calculi. Normal renal cortical parenchymal echogenicity. Color Doppler demonstrates blood flow within the kidney. Kidney: 9.4 x 5.1 x 6.5 cm BLADDER: No visible wall thickening, mass, or calculi. Post void residual: Not measured. URETERAL JETS: Visualized bilaterally. OTHER: Prominent heterogeneous prostate, 5.1 x 3.9 x 4.7 cm (49 cc). IMPRESSION: 1. No appreciable renal mass, hydronephrosis, stones, or significant cortical thinning. 2. Unremarkable urinary bladder. 3. Prominent heterogeneous prostate. Electronically authenticated by: ORAL VILLALOBOS Date: 03/03/2023 09:09
[2023-03-03] MEDS: 0.9 % SODIUM CHLORIDE 1,000 ML 100 ML IV ×3 (05:49→22:23)
[2023-03-03 06:53] LABS: Adenovirus F 40/41 NOT DETECTED (NOT DETECTE); Astrovirus NOT DETECTED (NOT DETECTE); Campylobacter NOT DETECTED (NOT DETECTE); Cryptosporidium NOT DETECTED (NOT DETECTE); Cyclospora cayetanensis NOT DETECTED (NOT DETECTE); E coli 0157 NOT DETECTED (NOT DETECTE); Entamoeba histolytica NOT DETECTED (NOT DETECTE); Enteroaggregative E.coli NOT DETECTED (NOT DETECTE); Enteropathogenic E.coli NOT DETECTED (NOT DETECTE); Enterotoxigenic E. coli NOT DETECTED (NOT DETECTE); Giardia lamblia NOT DETECTED (NOT DETECTE); Norovirus GI/GII NOT DETECTED (NOT DETECTE); Plesiomonas shigelloides NOT DETECTED (NOT DETECTE); Salmonella NOT DETECTED (NOT DETECTE); Shiga-like toxin-producing E.C NOT DETECTED (NOT DETECTE); Shigella/Enteroinvasive E.coli NOT DETECTED (NOT DETECTE); Vibrio NOT DETECTED (NOT DETECTE); Vibrio cholerae NOT DETECTED (NOT DETECTE); Yersinia enterocolitica NOT DETECTED (NOT DETECTE)
[2023-03-03 06:54] LABS: Sapovirus NOT DETECTED (NOT DETECTE)
[2023-03-03] MEDS: METOPROLOL SUCCINATE 25 MG TAB.ER.24H PO (08:45)
[2023-03-03] MEDS: LEVOTHYROXINE SODIUM 25 MCG TABLET 50 MCG PO (08:46)
[2023-03-03] MEDS: L. ACIDOPHILUS/L.BULGARICUS 1 PACKET GRAN.PACK PO (08:46)
[2023-03-03] MEDS: APIXABAN 5 MG TABLET 2.5 MG PO ×2 (08:48→21:08)
--- NOTE | 2023-03-03 09:00 | P.HP_ITS ---
H&P: HPI History of Present Illness Chief complaint: weakness, vomitting generalized weakness Narrative: Patient presented to the emergency with increasing nausea vomiting and diarrhea. Stool studies are still pending. Somewhat improved earlier today but as I saw him he was actually starting to feel little bit worse. [facility] Medical History (Updated 03/02/23 @ 23:49 by Ollie Marc MD) Surgical History (Updated 02/28/23 @ 14:30 by Andria Conrad) Family History (Updated 02/28/23 @ 14:47 by Andria Conrad) Sister Family history of cancer Ovarian cancer Other Family history of diabetes mellitus Heart disease Hemochromatosis Peripheral vascular disease Social History (Updated 02/28/23 @ 14:45 by Andria Conrad) Within the past year, how often did you have a drink containing alcohol: never Score interpretation: A score less than 4 is consistent with normal alcohol consumption. Smoking status: Never smoker Non-prescribed substance use: denies use Gender Identity: male Meds Home Medications and Allergies Home Medications Medication Instructions Recorded Confirmed Type apixaban 2.5 mg tablet (Eliquis) 2.5 mg PO BID 02/28/23 03/03/23 History darunavir 800 mg-cobicistat 150 mg 1 tab PO DAILY 02/28/23 03/03/23 History tablet (Prezcobix) digoxin 125 mcg (0.125 mg) tablet 125 mcg PO DAILY 02/28/23 03/03/23 History (Lanoxin) dolutegravir 50 mg tablet (Tivicay) 50 mg PO DAILY 02/28/23 03/03/23 History empagliflozin 10 mg tablet 10 mg PO QAM 02/28/23 03/03/23 History (Jardiance) isosorbide mononitrate 30 mg 30 mg PO QAM 02/28/23 03/03/23 History tablet,extended release 24 hr levothyroxine 50 mcg capsule 50 mcg PO DAILY 02/28/23 03/03/23 History metformin 1,000 mg tablet 1,000 mg PO BID 02/28/23 03/03/23 History metoprolol succinate 25 mg 25 mg PO DAILY 02/28/23 03/03/23 History tablet,extended release 24 hr nitroglycerin 0.4 mg sublingual 0.4 mg sublingual Q5M PRN chest 02/28/23 03/03/23 History tablet pain pregabalin 50 mg capsule (Lyrica) 50 mg PO TID 02/28/23 03/03/23 History rosuvastatin 20 mg tablet (Crestor) 20 mg PO DAILY 02/28/23 03/03/23 History tamsulosin 0.4 mg capsule (Flomax) 0.4 mg PO DAILY 02/28/23 03/03/23 History pantoprazole 40 mg tablet,delayed 40 mg PO DAILY 03/03/23 03/03/23 History release (Protonix) tramadol 50 mg tablet 50 mg PO Q12H PRN pain 03/03/23 03/03/23 History Allergies Allergy/AdvReac Type Severity Reaction Status Date / Time ciprofloxacin Allergy Unknown Verified 02/28/23 14:44 Sulfa (Sulfonamide Allergy Unknown Verified 02/28/23 14:44 Antibiotics) Exam Constitutional Vital Signs - 24 hr 03/02/23 16:59 03/02/23 21:13 03/02/23 21:15 Temperature 98.3 F Pulse Rate 77 Pulse Rate [Monitor] 95 H Respiratory Rate 20 20 Blood Pressure Blood Pressure [Left Arm] 104/60 Blood Pressure [Right Arm] Pulse Oximetry 98 99 Oxygen Delivery Method Room Air Room Air 03/02/23 21:20 03/02/23 17:39 03/02/23 17:40 Temperature Pulse Rate 80 87 88 Pulse Rate [Monitor] Respiratory Rate 20 15 25 H Blood Pressure Blood Pressure [Left Arm] Blood Pressure [Right Arm] Pulse Oximetry 99 Oxygen Delivery Method 03/02/23 17:50 03/02/23 18:00 03/02/23 18:10 Temperature Pulse Rate 90 83 79 Pulse Rate [Monitor] Respiratory Rate 21 31 H 19 Blood Pressure Blood Pressure [Left Arm] Blood Pressure [Right Arm] Pulse Oximetry 99 95 94 L Oxygen Delivery Method 03/02/23 18:20 03/02/23 18:30 03/02/23 18:40 Temperature Pulse Rate 81 78 79 Pulse Rate [Monitor] Respiratory Rate 32 H 24 21 Blood Pressure Blood Pressure [Left Arm] Blood Pressure [Right Arm] Pulse Oximetry 97 96 96 Oxygen Delivery Method 03/02/23 18:50 03/02/23 19:00 03/02/23 19:10 Temperature Pulse Rate 75 79 77 Pulse Rate [Monitor] Respiratory Rate 32 H 26 H 33 H Blood Pressure Blood Pressure [Left Arm] Blood Pressure [Right Arm] Pulse Oximetry 97 97 97 Oxygen Delivery Method 03/02/23 19:20 03/02/23 19:30 03/02/23 19:40 Temperature Pulse Rate 79 82 76 Pulse Rate [Monitor] Respiratory Rate 23 17 19 Blood Pressure Blood Pressure [Left Arm] Blood Pressure [Right Arm] Pulse Oximetry 98 93 L 95 Oxygen Delivery Method 03/02/23 19:50 03/02/23 20:00 03/02/23 20:10 Temperature Pulse Rate 79 85 82 Pulse Rate [Monitor] Respiratory Rate 25 H 24 27 H Blood Pressure Blood Pressure [Left Arm] Blood Pressure [Right Arm] Pulse Oximetry 93 L Oxygen Delivery Method 03/02/23 20:20 03/02/23 20:30 03/02/23 20:40 Temperature Pulse Rate 82 81 87 Pulse Rate [Monitor] Respiratory Rate 21 27 H 15 Blood Pressure Blood Pressure [Left Arm] Blood Pressure [Right Arm] Pulse Oximetry Oxygen Delivery Method 03/02/23 20:46 03/02/23 20:46 03/02/23 21:03 Temperature Pulse Rate 78 88 77 Pulse Rate [Monitor] Respiratory Rate 30 H 22 30 H Blood Pressure 136/69 H Blood Pressure [Left Arm] Blood Pressure [Right Arm] Pulse Oximetry 97 97 97 Oxygen Delivery Method 03/02/23 21:10 03/02/23 21:20 03/02/23 21:30 Temperature Pulse Rate 79 79 79 Pulse Rate [Monitor] Respiratory Rate 27 H 30 H 29 H Blood Pressure Blood Pressure [Left Arm] Blood Pressure [Right Arm] Pulse Oximetry 100 96 98 Oxygen Delivery Method 03/02/23 21:40 03/02/23 21:47 03/02/23 21:47 Temperature Pulse Rate 75 90 79 Pulse Rate [Monitor] Respiratory Rate 26 H 32 H 31 H Blood Pressure 130/59 H Blood Pressure [Left Arm] Blood Pressure [Right Arm] Pulse Oximetry 93 L 99 95 Oxygen Delivery Method 03/02/23 22:00 03/02/23 22:00 03/02/23 22:30 Temperature Pulse Rate 85 83 86 Pulse Rate [Monitor] Respiratory Rate 20 30 H 17 Blood Pressure 139/64 H 139/64 H 129/56 H Blood Pressure [Left Arm] Blood Pressure [Right Arm] Pulse Oximetry 98 96 Oxygen Delivery Method 03/02/23 22:58 03/02/23 23:00 03/02/23 23:10 Temperature Pulse Rate 84 79 78 Pulse Rate [Monitor] Respiratory Rate 24 21 28 H Blood Pressure Blood Pressure [Left Arm] Blood Pressure [Right Arm] Pulse Oximetry 95 99 96 Oxygen Delivery Method 03/02/23 23:20 03/02/23 23:30 03/02/23 23:31 Temperature Pulse Rate 78 77 92 H Pulse Rate [Monitor] Respiratory Rate 8 L 26 H 19 Blood Pressure 161/72 H Blood Pressure [Left Arm] Blood Pressure [Right Arm] Pulse Oximetry 96 96 96 Oxygen Delivery Method 03/03/23 00:20 03/02/23 23:31 03/03/23 00:12 Temperature Pulse Rate 84 88 Pulse Rate [Monitor] Respiratory Rate 17 Blood Pressure 161/72 H Blood Pressure [Left Arm] Blood Pressure [Right Arm] Pulse Oximetry Oxygen Delivery Method 03/03/23 00:20 03/03/23 00:55 03/03/23 00:55 Temperature 98.8 F Pulse Rate 89 88 Pulse Rate [Monitor] 88 Respiratory Rate 10 L 18 18 Blood Pressure Blood Pressure [Left Arm] 154/75 H Blood Pressure [Right Arm] Pulse Oximetry 95 95 Oxygen Delivery Method Room Air Room Air 03/03/23 02:00 03/03/23 04:00 03/03/23 06:00 Temperature Pulse Rate 84 81 81 Pulse Rate [Monitor] Respiratory Rate Blood Pressure Blood Pressure [Left Arm] Blood Pressure [Right Arm] Pulse Oximetry Oxygen Delivery Method 03/03/23 06:00 03/03/23 07:14 03/03/23 07:44 Temperature 97.6 F 97.7 F Pulse Rate 79 73 80 Pulse Rate [Monitor] Respiratory Rate 18 18 Blood Pressure Blood Pressure [Left Arm] Blood Pressure [Right Arm] 132/74 H 140/71 H Pulse Oximetry 98 96 Oxygen Delivery Method Room Air Room Air 03/03/23 08:04 Temperature Pulse Rate 79 Pulse Rate [Monitor] Respiratory Rate Blood Pressure Blood Pressure [Left Arm] Blood Pressure [Right Arm] Pulse Oximetry Oxygen Delivery Method Common normals: apparent distress Chest Common normals: inspection of chest normal Respiratory Common normals: normal respiratory effort Cardio Common normals: regular rate and regular rhythm GI Palpation: soft and tender Results Labs Labs: Short CBC 03/02/23 Range/Units 17:50 WBC 7.1 (4.0-11.0) 10^3/uL Hgb 17.7 (14.0-18.0) g/dL Hct 53.9 (42.0-54.0) % Plt Count 160 (150-450) 10^3/uL BMP 03/02/23 03/02/23 03/02/23 17:50 18:35 22:00 Sodium 134 L 133 L 135 L Potassium 7.0 H* 7.3 H* 4.6 Chloride 101 103 104 Carbon Dioxide 23.3 22.6 21.2 BUN 42.0 H 42.0 H 40.0 H Creatinine 2.51 H 2.42 H 2.34 H Glucose 205 H 196 H 160 H Calcium 9.5 8.6 8.7 03/03/23 01:50 Sodium 138 Potassium 4.8 Chloride 106 Carbon Dioxide 21.8 BUN 39.0 H Creatinine 2.19 H Glucose 133 H Calcium 8.9 Liver Function 03/02/23 Range/Units 17:50 Total Bilirubin 0.5 (0.2-1.0) mg/dL AST 21 (15-37) U/L ALT 26 (16-63) U/L Alkaline Phosphatase 87 (46-116) U/L Albumin 4.5 (3.4-5.0) g/dL Urine 03/02/23 Range/Units 23:00 Urine Color Lt. yellow (YELLOW) Urine Clarity Clear (CLEAR) Urine pH 5.5 (5.0-9.0) Ur Specific [place] 1.015 (1.005-1.025) Urine Protein Negative (NEG/TRACE) mg/dL Urine Glucose (UA) >=1000 A (NEGATIVE) mg/dL Assessment and Plan Assessment and Plan (1) Weakness generalized: (2) Gastroenteritis: (3) Acute kidney insufficiency: (4) Acute hyperkalemia: Plan Gastroenteritis with dehydration. Continue with IV fluids. Check on stool studies. If improved tomorrow likely discharge home tomorrow Hyponatremia-improved Hyperkalemia on admission-improved Elevated BUN/creatinine secondary to dehydration secondary to the above-improved
[2023-03-03] MEDS: ONDANSETRON PF 4 MG/2 ML VIAL IV (09:42)
--- NOTE | 2023-03-03 10:04 | CM.NOTE ---
Rounds made with Dr. Murillo. Obtain stool specimen. Nurses aware. No plan for discharge today.
[2023-03-03] MEDS: PANTOPRAZOLE SODIUM 40 MG VIAL IV (10:19)
[2023-03-03 10:32] LABS: Rotavirus A DETECTED (NOT DETECTE)
[2023-03-03] MEDS: HYOSCYAMINE SULFATE 0.125 MG TAB.SUBL 0.25 MG SL (10:37)
[2023-03-03] MEDS: LOPERAMIDE HCL 1 MG/7.5 ML LIQUID 2 MG PO (11:24)
--- NOTE | 2023-03-03 14:29 | SWNOTE1 ---
SW met with pt to discuss dc needs. Pt does live at home alone, he has 2 daughters and 1 son. One daughter and the son live close by, the other daughter is about an hour away. Pt stated he is legally blind and does not drive. Pt stated he is independent at home and does not use any DME. Pt is not current with any HH at this time. Pt does not feel he will have any discharge needs at this time. Pt's children do the grocery shopping and help him as needed. SW reviewed the MEJI[employer] form with pt, he voiced understanding and stated they will not pay anything because I am in observation. SW advised pt that SW does not know what the bill will be. Pt wanted to wait until daughter gets her to have her sign. SW spoke with daughter and she did confirm pt does well at home on his own and family helps as needed. LIZ reviewed MEJIAS form with pt's daughter. Pt's daughter used to work for insurance and she was familiar with OBS vs INPT. Daughter did ask if he will be made inpt after 24 hours of obs. LIZ advised that the physician will determine this. Pt's daughter signed form, original given to pt's daughter and copy placed in chart.
[2023-03-03] MEDS: ACETAMINOPHEN 325 MG TABLET 650 MG PO (14:35)
[2023-03-03] MEDS: PREGABALIN 50 MG CAPSULE PO (21:08)
[2023-03-03] MEDS: ATORVASTATIN CALCIUM 40 MG TABLET PO (21:08)
[2023-03-04] VITALS (15 sets, daily range): BP systolic 104–123; BP diastolic 64–72; PULSE 63–78; RESP 16–20; TEMP 35.6–36.3; O2SAT 93–98
[2023-03-04] MEDS: PREGABALIN 50 MG CAPSULE PO ×3 (05:43→20:52)
[2023-03-04 06:21] LABS: Basophils Percent Auto 0.1 % (0.2-2.0); Hemoglobin 14.2 g/dL (14.0-18.0); Immature Granulocytes Abs Auto 0.03 10^3/uL (0.00-0.03); Immature Granulocytes Pct Auto 0.4 % (0.0-0.5); Lymphocytes Absolute Auto 1.1 10^3/uL (1.2-3.8); Lymphocytes Percent Auto 15.5 % (20.5-60.0); Mean Corpuscular HGB Conc 32.3 g/dL (29.9-35.2); Mean Corpuscular Hemoglobin 29.5 pg (25.9-34.0); Mean Corpuscular Volume 91.3 fL (80.0-94.0); Mean Platelet Volume 10.8 fL (9.5-13.5); Monocytes Absolute Auto 0.5 10^3/uL (0.3-0.8); Neutrophils Absolute Auto 5.1 10^3/uL (1.4-6.5); Platelet Count 113 10^3/uL (150-450); Red Blood Count 4.82 10^6/uL (4.70-6.10); Red Cell Distribution Width 14.5 % (11.0-15.0); White Blood Count 6.8 10^3/uL (4.0-11.0)
[2023-03-04 06:43] LABS: Ammonia 29 umol/L (11-32)
[2023-03-04 06:48] LABS: Alanine Aminotransferase 21 U/L (16-63); Albumin Globulin Ratio 0.8; Albumin Level 2.9 g/dL (3.4-5.0); Alkaline Phosphatase 51 U/L (46-116); Amylase 65 U/L (25-115); Anion Gap 6.1; Aspartate Amino Transferase 24 U/L (15-37); BUN Creatinine Ratio 18.2; Bilirubin Total 0.3 mg/dL (0.2-1.0); Carbon Dioxide 16.5 mmol/L (21.0-32.0); Chloride 115 mmol/L (98-107); Estimated GFR (African America 37 (>=60); Estimated GFR (Non-African Ame 31 (>=60); Globulin 3.6 g/dL; Glucose 112 mg/dL (74-106); Magnesium 1.8 mg/dL (1.8-2.4); Potassium 4.6 mmol/L (3.5-5.1); Sodium 133 mmol/L (136-145); Total Protein 6.5 g/dL (6.4-8.2)
[2023-03-04] MEDS: HYOSCYAMINE SULFATE 0.125 MG TAB.SUBL 0.25 MG SL ×3 (08:37→16:29)
[2023-03-04] MEDS: ISOSORBIDE MONONITRATE 30 MG TAB.ER.24H PO (08:38)
[2023-03-04] MEDS: PANTOPRAZOLE SODIUM 40 MG VIAL IV (08:38)
[2023-03-04] MEDS: L. ACIDOPHILUS/L.BULGARICUS 1 PACKET GRAN.PACK PO ×3 (08:38→16:29)
[2023-03-04] MEDS: METOPROLOL SUCCINATE 25 MG TAB.ER.24H PO (08:38)
[2023-03-04] MEDS: LEVOTHYROXINE SODIUM 25 MCG TABLET 50 MCG PO (08:38)
[2023-03-04] MEDS: TAMSULOSIN HCL 0.4 MG CAPSULE PO (08:39)
[2023-03-04] MEDS: APIXABAN 5 MG TABLET 2.5 MG PO ×2 (08:39→20:52)
[2023-03-04] MEDS: DIGOXIN 125 MCG TABLET PO (08:39)
[2023-03-04] MEDS: 0.9 % SODIUM CHLORIDE 1,000 ML 100 ML IV ×2 (08:43→20:54)
[2023-03-04] MEDS: METFORMIN HCL 500 MG TABLET 1000 MG PO ×2 (08:52→20:51)
--- NOTE | 2023-03-04 08:56 | P.PN_ITS ---
Progress Note: Subjective Subjective Interval history: Not feeling significantly better today Exam Constitutional Vital Signs - 24 hr 03/03/23 09:09 03/03/23 09:38 03/03/23 09:51 Temperature 99.9 F H Pulse Rate 92 H 110 H 87 Pulse Rate [Monitor] Respiratory Rate 16 Blood Pressure [Left Arm] Blood Pressure [Right Arm] 148/81 H Pulse Oximetry 96 Oxygen Delivery Method Room Air 03/03/23 11:44 03/03/23 11:57 03/03/23 12:25 Temperature Pulse Rate 92 H Pulse Rate [Monitor] 88 Respiratory Rate 16 Blood Pressure [Left Arm] Blood Pressure [Right Arm] Pulse Oximetry 95 Oxygen Delivery Method Room Air 03/03/23 13:57 03/03/23 14:32 03/03/23 15:41 Temperature 102.9 F H 99.8 F H Pulse Rate 81 89 Pulse Rate [Monitor] Respiratory Rate 16 Blood Pressure [Left Arm] Blood Pressure [Right Arm] Pulse Oximetry 93 L Oxygen Delivery Method Room Air 03/03/23 16:05 03/03/23 18:44 03/03/23 19:44 Temperature Pulse Rate 75 67 77 Pulse Rate [Monitor] Respiratory Rate Blood Pressure [Left Arm] Blood Pressure [Right Arm] Pulse Oximetry Oxygen Delivery Method 03/03/23 21:51 03/03/23 19:45 03/03/23 22:40 Temperature 97.3 F L Pulse Rate 83 77 Pulse Rate [Monitor] Respiratory Rate 22 Blood Pressure [Left Arm] 139/75 H Blood Pressure [Right Arm] Pulse Oximetry 93 L 97 Oxygen Delivery Method Room Air Room Air 03/03/23 23:53 03/04/23 01:52 03/04/23 04:00 Temperature Pulse Rate 75 71 64 Pulse Rate [Monitor] Respiratory Rate Blood Pressure [Left Arm] Blood Pressure [Right Arm] Pulse Oximetry Oxygen Delivery Method 03/04/23 06:00 03/04/23 06:30 03/04/23 08:06 Temperature 97.2 F L Pulse Rate 72 72 63 Pulse Rate [Monitor] Respiratory Rate 20 Blood Pressure [Left Arm] Blood Pressure [Right Arm] 123/72 H Pulse Oximetry 98 Oxygen Delivery Method Room Air HENAK Common normals: moist oral mucous membranes Chest Common normals: inspection of chest normal Respiratory Common normals: normal respiratory effort Cardio Common normals: regular rate and regular rhythm GI Common normals: Normal to inspection, nondistended, normoactive bowel sounds present, soft to palpation and non-tender Progress Note: Objective Labs Labs: Short CBC 03/04/23 Range/Units 04:00 WBC 6.8 (4.0-11.0) 10^3/uL Hgb 14.2 (14.0-18.0) g/dL Hct 44.0 (42.0-54.0) % Plt Count 113 L (150-450) 10^3/uL BMP 03/04/23 04:00 Sodium 133 L Potassium 4.6 Chloride 115 H Carbon Dioxide 16.5 L BUN 39.0 H Creatinine 2.14 H Glucose 112 H Calcium 8.0 L Liver Function 03/04/23 Range/Units 04:00 Total Bilirubin 0.3 (0.2-1.0) mg/dL AST 24 (15-37) U/L ALT 21 (16-63) U/L Alkaline Phosphatase 51 (46-116) U/L Albumin 2.9 L (3.4-5.0) g/dL Progress Note: A&P Assessment and Plan (1) Weakness generalized: (2) Gastroenteritis: (3) Acute kidney insufficiency: (4) Acute hyperkalemia: Plan Gastroenteritis with dehydration. Due to rotavirus continue with IV fluids.? Not feeling significant improved today, still with significant diarrhea, Imodium helps Hyponatremia-improved Hyperkalemia on [id number] Elevated BUN/creatinine secondary to dehydration secondary to the [id number] will give fluid bolus this morning
[2023-03-04] MEDS: 0.9 % SODIUM CHLORIDE 1,000 ML 500 ML IV (11:21)
[2023-03-04] MEDS: ATORVASTATIN CALCIUM 40 MG TABLET PO (20:53)
[2023-03-05] VITALS (7 sets, daily range): BP systolic 90; BP diastolic 58; PULSE 55–80; RESP 20; TEMP 36.1; O2SAT 98
[2023-03-05 04:49] LABS: Basophils Percent Auto 0.3 % (0.2-2.0); Eosinophils Percent Auto 0.3 % (0.9-7.0); Hematocrit 43.2 % (42.0-54.0); Hemoglobin 13.9 g/dL (14.0-18.0); Immature Granulocytes Abs Auto 0.01 10^3/uL (0.00-0.03); Immature Granulocytes Pct Auto 0.3 % (0.0-0.5); Lymphocytes Percent Auto 27.2 % (20.5-60.0); Mean Corpuscular HGB Conc 32.2 g/dL (29.9-35.2); Mean Corpuscular Hemoglobin 29.6 pg (25.9-34.0); Mean Corpuscular Volume 92.1 fL (80.0-94.0); Mean Platelet Volume 9.9 fL (9.5-13.5); Monocytes Absolute Auto 0.4 10^3/uL (0.3-0.8); Monocytes Percent Auto 10.1 % (1.7-12.0); Neutrophils Absolute Auto 2.2 10^3/uL (1.4-6.5); Neutrophils Percent Auto 61.8 % (43.0-75.0); Platelet Count 98 10^3/uL (150-450); Red Blood Count 4.69 10^6/uL (4.70-6.10); Red Cell Distribution Width 14.6 % (11.0-15.0); White Blood Count 3.6 10^3/uL (4.0-11.0)
[2023-03-05 04:50] LABS: Ammonia 27 umol/L (11-32)
[2023-03-05 04:57] LABS: Alanine Aminotransferase 27 U/L (16-63); Albumin Globulin Ratio 0.8; Albumin Level 2.8 g/dL (3.4-5.0); Alkaline Phosphatase 48 U/L (46-116); Amylase 86 U/L (25-115); Aspartate Amino Transferase 29 U/L (15-37); BUN Creatinine Ratio 19.2; Bilirubin Total 0.3 mg/dL (0.2-1.0); Carbon Dioxide 17.2 mmol/L (21.0-32.0); Chloride 108 mmol/L (98-107); Estimated GFR (African America 40 (>=60); Estimated GFR (Non-African Ame 33 (>=60); Globulin 3.6 g/dL; Glucose 101 mg/dL (74-106); Magnesium 1.8 mg/dL (1.8-2.4); Potassium 4.2 mmol/L (3.5-5.1); Sodium 135 mmol/L (136-145); Total Protein 6.4 g/dL (6.4-8.2)
[2023-03-05] MEDS: PREGABALIN 50 MG CAPSULE PO (05:06)
[2023-03-05] MEDS: 0.9 % SODIUM CHLORIDE 1,000 ML 100 ML IV (06:28)
[2023-03-05] MEDS: DIGOXIN 125 MCG TABLET PO (09:07)
[2023-03-05] MEDS: HYOSCYAMINE SULFATE 0.125 MG TAB.SUBL 0.25 MG SL (09:07)
[2023-03-05] MEDS: LEVOTHYROXINE SODIUM 25 MCG TABLET 50 MCG PO (09:07)
[2023-03-05] MEDS: METFORMIN HCL 500 MG TABLET 1000 MG PO (09:07)
[2023-03-05] MEDS: TAMSULOSIN HCL 0.4 MG CAPSULE PO (09:08)
[2023-03-05] MEDS: L. ACIDOPHILUS/L.BULGARICUS 1 PACKET GRAN.PACK PO (09:08)
[2023-03-05] MEDS: APIXABAN 5 MG TABLET 2.5 MG PO (09:08)
[2023-03-05] MEDS: METOPROLOL SUCCINATE 25 MG TAB.ER.24H PO (09:08)
[2023-03-05] MEDS: ISOSORBIDE MONONITRATE 30 MG TAB.ER.24H PO (09:08)
[2023-03-05] MEDS: CANAGLIFLOZIN 100 MG TABLET 10 MG PO (09:09)
[2023-03-05] MEDS: PANTOPRAZOLE SODIUM 40 MG VIAL IV (09:10)
--- NOTE | 2023-03-05 09:52 | P.DS_ITS ---
DS: Providers Provider Date of admission: 03/03/23 00:01 Primary care physician: Non-Staff Physician, Consults: 03/03/23 09:09 Physical Therapy Eval and Treat Routine DS: Diagnosis Discharge Diagnosis (1) Weakness generalized: (2) Gastroenteritis: (3) Acute kidney insufficiency: (4) Acute hyperkalemia: Plan Gastroenteritis with dehydration.? Due to rotavirus Hyponatremia Hyperkalemia on admission Elevated BUN/creatinine secondary to dehydration secondary to the above DS: Summary Hospital Course Hospital Course: Patient admitted with increasing abdominal pain, nausea, vomiting, diarrhea.Given IV fluids and daily labs, very slow to improve from a diarrhea standpoint. Tested positive for rotavirus. Previously GI discharged yesterday still unable to eat significant amounts secondary to the diarrhea and cramping. Better this morning. If he tolerates lunch she will be discharged home in i [facility] condition. Medications see list. Follow-up with me in the office more as needed for this. Other issue was his hyperkalemia and thrombocytopenia, those were managed as an outpatient as well. Chronic kidney disease stage III improving Status at Discharge Functional status at discharge: independent ambulation Time Spent with Patient Time attestation: Total time spent providing and/or coordinating discharge services: Exam Constitutional Vital Signs - 24 hr 03/04/23 10:02 03/04/23 11:50 03/04/23 11:10 Temperature Pulse Rate 70 68 Respiratory Rate Blood Pressure [Left Arm] Blood Pressure [Right Arm] Pulse Oximetry 93 L Oxygen Delivery Method Room Air 03/04/23 13:54 03/04/23 13:56 03/04/23 16:04 Temperature 97.4 F L Pulse Rate 78 77 69 Respiratory Rate 16 Blood Pressure [Left Arm] Blood Pressure [Right Arm] 104/64 Pulse Oximetry 98 Oxygen Delivery Method Room Air 03/04/23 18:08 03/04/23 20:00 03/04/23 21:00 Temperature 96.1 F L Pulse Rate 65 71 70 Respiratory Rate 20 Blood Pressure [Left Arm] Blood Pressure [Right Arm] 117/65 Pulse Oximetry 98 Oxygen Delivery Method Room Air 03/04/23 22:00 03/04/23 21:00 03/05/23 00:00 Temperature Pulse Rate 68 69 Respiratory Rate Blood Pressure [Left Arm] Blood Pressure [Right Arm] Pulse Oximetry 98 Oxygen Delivery Method Room Air 03/05/23 02:00 03/05/23 04:00 03/05/23 06:00 Temperature Pulse Rate 80 72 55 L Respiratory Rate Blood Pressure [Left Arm] Blood Pressure [Right Arm] Pulse Oximetry Oxygen Delivery Method 03/05/23 05:00 03/05/23 07:51 Temperature 97.0 F L Pulse Rate 61 63 Respiratory Rate 20 Blood Pressure [Left Arm] 90/58 L Blood Pressure [Right Arm] Pulse Oximetry 98 Oxygen Delivery Method Room Air HENAK Common normals: moist oral mucous membranes Respiratory Common normals: normal respiratory effort, no retractions, no use of accessory muscles and clear to auscultation bilaterally Cardio Common normals: regular rate, regular rhythm and S1 normal heart sound GI Common normals: Normal to inspection, nondistended, normoactive bowel sounds present, soft to palpation and non-tender DS: Data Data Completed and Pending Labs on day of discharge: Labs from last 24 hours 03/05/23 04:24 WBC 3.6 L RBC 4.69 L Hgb 13.9 L Hct 43.2 MCV 92.1 MCH 29.6 MCHC 32.2 RDW 14.6 Plt Count 98 L MPV 9.9 Neut % (Auto) 61.8 Lymph % (Auto) 27.2 Cooke % (Auto) 10.1 Eos % (Auto) 0.3 L Baso % (Auto) 0.3 Neut # (Auto) 2.2 Lymph # (Auto) 1.0 L [place] # (Auto) 0.4 Eos # (Auto) 0.0 Baso # (Auto) 0.0 Abs Immat Gran (auto) 0.01 Imm/Tot Granulo (auto) 0.3 Sodium 135 L Potassium 4.2 Chloride 108 H Carbon Dioxide 17.2 L Anion Gap 14.0 BUN 39.0 H Creatinine 2.03 H Est GFR ( Amer) 40 L Est GFR (Non-Af Amer) 33 L BUN/Creatinine Ratio 19.2 Glucose 101 Calcium 8.0 L Magnesium 1.8 Total Bilirubin 0.3 AST 29 ALT 27 Alkaline Phosphatase 48 Ammonia 27 Total Protein 6.4 Albumin 2.8 L Globulin 3.6 Albumin/Globulin Ratio 0.8 Amylase 86 Discharge Plan Discharge Disposition: Home, Self-Care Condition: Fair Discharge Medications: New hyoscyamine sulfate 0.125 mg Tablet, Sublingual 0.25 mg sublingual AC Qty: 30 0RF Continued tramadol 50 mg tablet 50 mg PO Q12H PRN (Reason: pain) pantoprazole [Protonix] 40 mg tablet,delayed release (DR/EC) 40 mg PO DAILY Hold Instructions: Order Change rosuvastatin [Crestor] 20 mg tablet 20 mg PO DAILY Eliquis 2.5 mg tablet 2.5 mg PO BID tamsulosin [Flomax] 0.4 mg capsule 0.4 mg PO DAILY isosorbide mononitrate 30 mg tablet extended release 24 hr 30 mg PO QAM Jardiance 10 mg tablet 10 mg PO QAM digoxin [Lanoxin] 125 mcg (0.125 mg) tablet 125 mcg PO DAILY levothyroxine 50 mcg capsule 50 mcg PO DAILY pregabalin [Lyrica] 50 mg capsule 50 mg PO TID metformin 1,000 mg tablet 1,000 mg PO BID metoprolol succinate 25 mg tablet extended release 24 hr 25 mg PO DAILY nitroglycerin 0.4 mg tablet, sublingual 0.4 mg sublingual Q5M PRN (Reason: chest pain) Rx Instructions: do not exceed 3 doses per episode Prezcobix 800-150 mg-mg tablet 1 tab PO DAILY Rx Instructions: must administer with a meal/food Tivicay 50 mg tablet 50 mg PO DAILY Forms: Portal Instructions
== END 2023-03-05 12:00 | disposition home or self-care (01) ==
LOC: ER 23:49 → MS 03-03 00:02
PROVIDERS: Emergency Medicine; Admitting Provider Internal Medicine; Emergency Provider Internal Medicine; Visit Provider Family Medicine
DX: A08.0 Rotaviral enteritis (principal); E86.0 Dehydration; R53.1 Weakness; N28.9 Disorder of kidney and ureter, unspecified; E87.5 Hyperkalemia; N18.30 Chronic kidney disease, stage 3 unspecified; R79.89 Other specified abnormal findings of blood chemistry; I12.9 Hypertensive chronic kidney disease with stage 1 through stage 4 chronic kidney disease, or unspecified chronic kidney disease; E11.22 Type 2 diabetes mellitus with diabetic chronic kidney disease; D69.6 Thrombocytopenia, unspecified; I48.0 Paroxysmal atrial fibrillation; E78.5 Hyperlipidemia, unspecified; E03.9 Hypothyroidism, unspecified; I25.10 Atherosclerotic heart disease of native coronary artery without angina pectoris; N40.0 Benign prostatic hyperplasia without lower urinary tract symptoms; Z21 Asymptomatic human immunodeficiency virus [HIV] infection status; Z95.1 Presence of aortocoronary bypass graft; Z79.84 Long term (current) use of oral hypoglycemic drugs; Z79.890 Hormone replacement therapy; Z79.899 Other long term (current) drug therapy; Z79.01 Long term (current) use of anticoagulants
CPT/HCPCS: 36415; 76770; 80048; 80053; 80162; 81003; 82140; 82150; 83690; 83735; 85025; 87040; 87507; 93005; 94640; 94761; 96374; 96375; 96376; 99285; G0378; Q3014

== ENCOUNTER 2024-05-09 14:39 | Outpatient (OUT) | payer MEDICARE, SELFPAY ==
--- NOTE | 2024-05-09 14:55 | CA_ITS ---
Patient Name: PARISH RAY MR#: [id number] : 1955 Exam Date: 05/09/2024 Ordering Doctor: ALLYSON BOYD ECHOCARDIOGRAM REPORT PROCEDURE: CA ECHO DOPPLER COMPLETE INDICATIONS: Congestive heart failure, History of PA COMPARISON: None. DESCRIPTION: COMPLETE ECHOCARDIOGRAM Real-time transthoracic echocardiography with 2D, M-mode, spectral and color flow Doppler performed. QUALITY: Technical quality was good. LEFT VENTRICLE: Normal chamber size. Moderate concentric left ventricular hypertrophy. Global left ventricular systolic function is mildly decreased. There is severe hypokinesis of the distal septum and apex. LV EF: Visual estimation of left ventricular ejection fraction is 45-50% DIASTOLIC: Normal diastolic function. ATRIAL SEPTUM: LEFT ATRIUM: Normal chamber size. RIGHT ATRIUM: Mild dilatation. RIGHT VENTRICLE: Normal chamber size. Normal right ventricular systolic function. TRICUSPID VALVE: Normal mobility and thickness. No stenosis with trivial regurgitation. No evidence of pulmonary hypertension. RVSP 22 mmHg MITRAL VALVE: Normal mobility and thickness. No evidence of mitral valve stenosis. There is no mitral annular calcification. Trivial mitral regurgitation. AORTIC VALVE: Normal trileaflet appearance. No visible sclerosis. Normal leaflet mobility. No evidence of aortic valve stenosis. No aortic regurgitation. AORTIC ROOT: Normal diameter and appearance. Normal size ascending aorta measuring 3.5 cm. PULMONIC VALVE: Normal thickness and mobility. No stenosis. Trivial regurgitation. PERICARDIUM: No evidence of pericardial effusion. IVC: Collapses with inspirations. Normal size. PLEURA: CONCLUSION: 1. Left ventricle is normal in size and exhibits mildly reduced systolic function. There is wall motion abnormalities involving the distal septum and apex. Estimated LVEF is 45 to 50%. 2. Normal right ventricular size and systolic function. 3. No significant valvular dysfunction. 4. Normal diastolic function. 5. Normal right-sided pressures. Adult Echocardiography Procedure Report Left Ventricle LVEDD (3.7 - 5.6 cm): 4.58 cm LVESD (2.2 - 4.0 cm): 3.40 cm LVIVS thickness (0.6 - 1.2 cm): 1.21 cm LVPW thickness (0.5 - 1.0 cm): 1.28 cm e': 0.10 m/s E - e': 5.13 LVOT Max Gradient: 3.37 mm[Hg] LVOT Area (cm2): 0.92 m/s Peak Velocity (LVOT): 0.92 m/s Mean Velocity (LVOT): 0.62 m/s LVOT Diameter 2.00 cm Left Ventricular Ejection Fraction: 45-50 % Left Atrium LA Volume Index (2D A2C): 32.16 ml/m2 Left Atrium Systolic Dimension: 3.73 cm Mitral Valve MV E to A Ratio: 0.78 Mitral Valve A-Wave Peak Velocity: 0.64 m/s Mitral Valve E-Wave Peak Velocity: 0.50 m/s Right Ventricle RV Internal Diastolic Dimension: 3.82 cm Aorta AO Root Diam: 3.28 cm Ascending Ao Diam: 3.48 cm Aortic Valve AoV Area (Peak Kwadwo): 2.65 cm2, 2.65 cm2 AoV Area (VTI): 2.33 cm2, 2.33 cm2 Peak Velocity(Antegrade Flow): 1.09 m/s Peak Gradient(Antegrade Flow): 4.73 mm[Hg] Mean Velocity(Antegrade Flow): 0.74 m/s Mean Gradient(Antegrade Flow): 2.54 mm[Hg] Velocity Time Integral: 25.31 cm Tricuspid Valve Peak Velocity (Regurgitant Flow): 1.28 m/s, 1.63 m/s, 2.18 m/s Pulmonic Valve Mean Gradient: 1.80 mm[Hg], 2.04 mm[Hg] Mean Velocity: 0.62 m/s, 0.66 m/s Peak Velocity: 1.04 m/s Peak Gradient: 4.20 mm[Hg], 4.50 mm[Hg] Right Atrium Right Atrium Systolic Pressure: 61.33 ml, 61.33 ml Dictated by: Tree Jenkins M.D. on 05/09/2024 at 19:32 Approved by: Tree Jenkins M.D. on 05/09/2024 at 19:35
== END 2024-05-09 14:40 | disposition home or self-care (01) ==
LOC: CARD 14:40
PROVIDERS: Visit Provider Nurse Practitioner
DX: I50.22 Chronic systolic (congestive) heart failure (principal)
CPT/HCPCS: 93306; 93356

== ENCOUNTER 2024-06-19 12:54 | Outpatient (OUT) | payer MEDICARE, SELFPAY ==
--- OUTSIDE RECORDS SUMMARY | 2024-06-19 13:00 | XMS_ITS | CCD ---
Author Organization [facility] Care Team Providers Care Material Stockkeeper Yard Name Role Phone JONAS MURILLO Primary Care Unavailable JONAS MURILLO Referring Unavailable ELENO JOHNSON V Admitting Unavailable MOUKARBELENO GUIDRY V Attending Unavailable MOUKARBEL, DR JOHANSEN Consulting Unavailable MOUKARBEL, DR JOHANSEN Attending Unavailable HOY, DR MCDANIEL Primary Care Unavailable MOUKARBEL, DR JOHANSEN Admitting Unavailable HOY, DR MCDANIEL Primary Care Unavailable HOY, DR MCDANIEL Consulting Unavailable HOY, DR MCDANIEL Attending Unavailable HOY, DR MCDANIEL Admitting Unavailable HAY, DR MONTAGUE Consulting Unavailable MARKER, DR VALADEZ Consulting Unavailable YOUNG, ORAL Consulting Unavailable MARIANELA HERRING Consulting Unavailable ARLEN KHAN Admitting Unavailable HOY, DR MCDANIEL Primary Care Unavailable ARLEN KHAN Attending Unavailable MOUKARBEL, DR JOHANSEN Attending Unavailable HOY, DR MCDANIEL Primary Care Unavailable MOUKARBEL, DR JOHANSEN Admitting Unavailable HOY, DR MCDANIEL Primary Care Unavailable HOY, DR MCDANIEL Consulting Unavailable CATHYY, DR MCDANIEL Attending Unavailable HOY, DR MCDANIEL Admitting Unavailable HOY, DR MCDANIEL Consulting Unavailable HOY, DR MCDANIEL Attending Unavailable HOY, DR MCDANIEL Admitting Unavailable HOY, DR MCDANIEL Primary Care Unavailable MOUKARBEL, DR JOHANSEN Attending Unavailable HOY, DR MCDANIEL Primary Care Unavailable MOUKARBEL, DR JOHANSEN Admitting Unavailable MOUKARBEL, DR JOHANSEN Consulting Unavailable MOUKARBEL, DR JOHANSEN Consulting Unavailable MOUKARBEL, DR JOHANSEN Attending Unavailable HOY, DR MCDANIEL Primary Care Unavailable MOUKARBEL, DR JOHANSEN Admitting Unavailable ALGHOTHANITREVON Admitting Unavailable HOY, DR MCDANIEL Primary Care Unavailable ALGHOTREVON JIANG Attending Unavailable MOUKARBEL, DR JOHANSEN Attending Unavailable HOY, DR MCDANIEL Primary Care Unavailable SONDHEIMER, DR BRIAN Cuevas Consulting Unavailable MOUKARBEL, DR JOHANSEN Admitting Unavailable ALEX, DR JOHANSEN Consulting Unavailable Jose BECKER Attending Unavailable CathyJonas tobar Referring Unavailable ROXY, JADA Referring Unavailable ROXY, JADA Referring Unavailable GEORGESCU, SUSHILA A Attending Unavailable ROXY, JADA Referring Unavailable GEORGESCU, SUSHILA A Attending Unavailable ARLEN KHAN Referring Unavailable ROXY, JADA Referring Unavailable ROXY, JADA Referring Unavailable ROXY, JADA Referring Unavailable DORA WEBBER Attending Unavailable ALLYSON BOYD Attending Unavailable ROXY, JADA Referring Unavailable Allergies Allergy Classification Reported Allergen(s) Allergy Type Date of Onset Reaction(s) Facility (3 sources) liothyronine Drug Allergy 9 [facility] Repository (1 source) Stavudine Drug Allergy 1 [facility] Repository (1 source) Ciprofloxacin; Translations: [Cipro] Drug Allergy [facility] Repository (1 source) Sulfonamides (Antibiotic); Translations: [sulfa drugs] Propensity to adverse reactions (disorder) [facility] Repository (1 source) Ciprofloxacin; Translations: [CIPROFLOXACIN] Drug Allergy 3 [facility] Repository (1 source) Stavudine; Translations: [STAVUDINE] Drug Allergy 4 [facility] Repository (1 source) Sulfonamides (Antibiotic); Translations: [SULFA (SULFONAMIDE ANTIBIOTICS)] Propensity to adverse reactions to drug (disorder) 3 [facility] Repository (1 source) Ticlopidine; Translations: [TICLOPIDINE] Drug Allergy 4 [facility] Repository Problems Active Problems Problem Classification Problem Date Documented Date Episodic/Chronic Abdominal pain (4 sources) Unspecified abdominal pain; Translations: [UNSPECIFIED ABDOMINAL PAIN] Onset: 09-14-2022 Episodic Cardiac dysrhythmias (11 sources) Unspecified atrial flutter; Translations: [Junctional premature depolarization] Onset: 12-24-2021 Chronic Cardiac dysrhythmias (2 sources) Palpitations; Translations: [Palpitations] Onset: 03-08-2024 Episodic Congestive heart failure; nonhypertensive (2 sources) Chronic systolic (congestive) heart failure; Translations: [Chronic systolic (congestive) heart failure] Onset: 12-03-2022 Chronic Coronary atherosclerosis and other heart disease (2 sources) Atherosclerotic heart disease of [place] coronary artery without angina pectoris; Translations: [Old myocardial infarction] Onset: 12-29-2021 Chronic Deficiency and other anemia (1 source) Anemia, unspecified; Translations: [ANEMIA UNSPECIFIED] Onset: 09-22-2022 Episodic Diabetes mellitus without complication (2 sources) Type 2 diabetes mellitus without complications; Translations: [Type 2 diabetes mellitus without complications] Onset: 04-25-2023 Chronic Essential hypertension (1 source) Essential (primary) hypertension; Translations: [ESSENTIAL PRIMARY HYPERTENSION] Onset: 12-29-2021 Chronic HIV infection (3 sources) Asymptomatic human immunodeficiency virus [HIV] infection status; Translations: [Human immunodeficiency virus [HIV] disease] Onset: 12-29-2021 Chronic Hyperplasia of prostate (1 source) Benign prostatic hyperplasia without lower urinary tract symptoms; Translations: [BENIGN PROSTATIC HYPRPLASIA WO LUTS] Onset: 12-29-2021 Chronic Other nutritional; endocrine; and metabolic disorders (1 source) Abnormal weight loss; Translations: [ABNORMAL WEIGHT LOSS] Onset: 09-22-2022 Episodic Other screening for suspected conditions (not mental disorders or infectious disease) (4 sources) Other abnormal tumor markers; Translations: [Encounter for screening for malignant neoplasm of prostate] Onset: 09-22-2022 Episodic Residual codes; unclassified (1 source) Disorientation, unspecified; Translations: [DISORIENTATION UNSPECIFIED] Onset: 09-22-2022 Episodic Thyroid disorders (1 source) Hypothyroidism, unspecified; Translations: [HYPOTHYROIDISM UNSPECIFIED] Onset: 12-29-2021 Chronic Unclassified (1 source) CONTACT W/AND (SUSP) EXPOS COVID-19; Translations: [CONTACT W/AND (SUSP) EXPOS COVID-19] Onset: 04-05-2022 Past or Other Problems Problem Classification Problem Date Documented Da te Episodic/Chronic Acute and unspecified renal failure (1 source) Acute kidney failure, unspecified; Translations: [ACUTE KIDNEY FAILURE UNSPECIFIED] Onset: 12-29-2021 Episodic Coronary atherosclerosis and other heart disease (1 source) Presence of aortocoronary bypass graft; Translations: [PRESENCE AORTOCORONARY BYPASS GRAFT] Onset: 12-29-2021 Episodic Other aftercare (1 source) terminal clerk (current) use of aspirin; Translations: [ASSISTED CURRENT USE OF ASPIRIN] Onset: 12-29-2021 Episodic Other aftercare (1 source) half-way (current) use of 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/anti platelets; Translations: [PAIN COORDINATOR ANTITHROMBOT/ANTIPLA TLETS] Onset: 12-29-2021 Episodic Other aftercare (1 source) terminal clerk (current) use of oral hypoglycemic drugs; Translations: [ASSISTED USE ORAL HYPOGLYCEMIC DX] Onset: 12-29-2021 Episodic Other aftercare (1 source) Other predatory animal exterminator (current) drug therapy; Translations: [OTH ASSISTED CURRENT DRUG THERAPY] Onset: 12-29-2021 Episodic Other circulatory disease (1 source) Personal history of transient ischemic attack (TIA), and cerebral infarction without residual deficits; Translations: [PERS HX TIA AND CI NO RESID DEFICIT] Onset: 12-29-2021 Episodic Other hematologic conditions (1 source) Other specified abnormalities of plasma proteins; Translations: [OTH SPEC ABNORM PLASMA PROTEINS] Onset: 12-29-2021 Episodic Other lower respiratory disease (4 sources) Other forms of dyspnea; Translations: [OTHER FORMS OF DYSPNEA] Onset: 03-21-2022 Episodic Other lower respiratory disease (3 sources) Shortness of breath; Translations: [SHORTNESS OF BREATH] Onset: 12-20-2021 Episodic Residual codes; unclassified (1 source) Acquired absence of other specified parts of digestive tract; Translations: [ACQ ABSENCE OTH PART DIGESTV TRACT] Onset: 12-29-2021 Episodic Results Test Name Value Interpretation Reference Range Facility [facility] 06-03-2024 Refill [id number] Parish Contreras 1955 M Date Provider Department Center 06/03/2024 SUSHILA HAND [facility] Family History Problem Relation Age of Onset Heart attack Father Other Sister Heart attack Brother Other Brother Family Status - Relation Status Age at Father Sister Brother Reason for Visit and Comments: Med Refill [[id number]] Normal [facility] CBC WITH AUTO DIFFERENTIALon 05-07-2024 Basophils (Bld) [#/Vol] 0.02 10*3/uL Normal 0.00-0.20 [facility] Comment on above: Performed By: #### L [id number] #### [facility] ([facility]) [address] [place] [address] Basophils/100 WBC (Bld) 0.3 % Normal 0.0-1.0 [facility] Comment on above: Performed By: #### L [id number] #### [facility] ([facility]) [address] [place] [address] Eosinophils (Bld) [#/Vol] 0.14 10*3/uL Normal 0.00-0.50 [facility] Comment on above: Performed By: #### L [id number] #### [facility] [address] [place] [address] Eosinophils/100 WBC (Bld) 2.4 % Normal 0.0-6.0 [facility] Comment on above: Performed By: #### L [id number] #### [facility] ([facility]) [address] [place] [address] Erythrocyte distribution width (RBC) [Ratio] 13.7 % Normal 11.5-15.0 [facility] Comment on above: Performed By: #### L [id number] #### [facility] [address] [place] [address] ERYTHROCYTE MEAN CORPUSCULAR HEMOGLOBIN CONCENTRATION (G/DL) BY AUTOMATED 32.7 g/dL Normal 32.0-35.0 [facility] Comment on above: Performed By: #### L [id number] #### [facility] [address] [place] [address] Hematocrit (Bld) [Volume fraction] 50.7 % Normal 39.0-55.0 [facility] Comment on above: Performed By: #### L [id number] #### [facility] ([facility]) [address] [place] [address] Hemoglobin (Bld) [Mass/Vol] 16.6 g/dL Normal 13.0-17.0 [facility] Comment on above: Performed By: #### L [id number] #### [facility] ([facility]) [address] [place] [address] Immature granulocytes (Bld) [#/Vol] 0.02 10*3/uL Normal 0.00-0.20 [facility] Comment on above: Performed By: #### L [id number] #### [facility] ([facility]) [address] [place] [address] Immature granulocytes/100 WBC (Bld) 0.3 % Normal 0.0-1.0 [facility] Comment on above: Performed By: #### L [id number] #### [facility] ([facility]) [address] [place] [address] Lymphocytes (Bld) [#/Vol] 1.93 10*3/uL Normal 1.20-4.00 [facility] Comment on above: Performed By: #### L [id number] #### [facility] ([facility]) [address] [place] [address] Lymphocytes/100 WBC (Bld) 32.4 % Normal 20.0-45.0 [facility] Comment on above: Performed By: #### L [id number] #### [facility] ([facility]) [address] [place] [address] MCH (RBC) [Entitic mass] 30.6 pg Normal 27.0-33.0 [facility] Comment on above: Performed By: #### L [id number] #### [facility] [address] [place] [address] MCV (RBC) [Entitic vol] 93.5 fL Normal 82.0-98.0 [facility] Comment on above: Performed By: #### L [id number] #### [facility] ([facility]) [address] [place] [address] Monocytes (Bld) [#/Vol] 0.38 10*3/uL Normal 0.10-1.00 [facility] Comment on above: Performed By: #### L [id number] #### [facility] ([facility]) [address] [place] [address] Monocytes/100 WBC (Bld) 6.4 % Normal 5.0-12.0 [facility] Comment on above: Performed By: #### L [id number] #### [facility] ([facility]) [address] [place] [address] Neutrophils (Bld) [#/Vol] 3.46 10*3/uL Normal 1.60-7.60 [facility] Comment on above: Performed By: #### L [id number] #### [facility] ([facility]) [address] [place] [address] Neutrophils/100 WBC (Bld) 58.2 % Normal 40.0-72.0 [facility] Comment on above: Performed By: #### L [id number] #### [facility] ([facility]) [address] [place] [address] NRBC (PER 100 WBCS) BY AUTOMATED COUNT 0.0 % Normal 0 [facility] Comment on above: Performed By: #### L [id number] #### [facility] ([facility]) [address] [place] [address] PLATELETS (10*3/UL) IN BLOOD AUTOMATED COUNT 148 10*3/uL Low 150-400 [facility] Comment on above: Performed By: #### L [id number] #### [facility] ([facility]) [address] [place] [address] RBC (Bld) [#/Vol] 5.42 10*6/uL Normal 4.20-5.70 [facility] Comment on above: Performed By: #### L [id number] #### [facility] ([facility]) [address] [place] [address] WBC (Bld) [#/Vol] 5.95 10*3/uL Normal 4.00-10.60 [facility] Comment on above: Performed By: #### L [id number] #### [facility] ([facility]) [address] [place] [address] CHLAMYDIA TRACHOMATIS AND NE ISSERIA GONORRHEA, TMAon 05-07-2024 CHLAMYDIA TRACHOMATIS DNA PROBE (PRESENCE) IN UNSP SPEC Negative Normal Negative [facility] Comment on above: Result Comment: No C hlamydia trachomatis rRNA Detected. The Aptima Combo 2 Assay is a FDA approved target amplification nucleic acid probe test that utilizes target capture for the in vitro qualitative detection and differentiation of ribosomal RNA (rRNA) from Chlamydia trachomatis (CT) and/or Neisseria gonorrhoeae (GC) to aid the diagnosis of chlamydial and/or gonococcal urogenital disease using the [facility] System. The Aptima Combo 2 Assay involves target capture, target amplification by Document Review Specialist-Mediated Amplification (TMA), and the detection of the amplification products (amplicon) by the Hybridization Protection Assay (HPA). The internal process controls of the [facility] System monitor the target capture, amplification, and detection steps of the assay, this is not intended to control for sampling adequacy. Performed By: #### L [id number] ####[facility] ([facility])[address] [place] [address] NEISSERIA GONORRHOEAE DNA PROBE (PRESENCE) IN UNSP SPEC Negative Normal Negative [facility] Comment on above: Result Comment: No N eisseria gonorrhoeae rRNA Detected. The Aptima Combo 2 Assay is a FDA approved target amplification nucleic acid probe test that utilizes target capture for the in vitro qualitative detection and differentiation of ribosomal RNA (rRNA) from Chlamydia trachomatis (CT) and/or Neisseria gonorrhoeae (GC) to aid the diagnosis of chlamydial and/or gonococcal urogenital disease using the [facility] System. The Aptima Combo 2 Assay involves target capture, target amplification by Document Review Specialist-Mediated Amplification (TMA), and the detection of the amplification products (amplicon) by the Hybridization Protection Assay (HPA). The internal process controls of the [facility] System monitor the target capture, amplification, and detection steps of the assay, this is not intended to control for sampling adequacy. Performed By: #### L [id number] ####[facility] ([facility]ER)[address] [place] [address] COMPREHENSIVE METABOLIC PANE Azam 05-07-2024 Albumin [Mass/Vol] 4.6 g/dL Normal 3.5-5.7 [facility] Comment on above: Performed By: #### L [id number] #### [facility] ([facility]) [address] [place] [address] ALP [Catalytic activity/Vol] 66 U/L Normal 34-104 [facility] Comment on above: Performed By: #### L [id number] #### [facility] ([facility]) [address] [place] [address] ALT [Catalytic activity/Vol] 14 U/L Normal 7-52 [facility] Comment on above: Performed By: #### L [id number] #### [facility] ([facility]) [address] [place] [address] Anion gap [Moles/Vol] 13 mmol/L Normal 7-20 [facility] Comment on above: Performed By: #### L [id number] #### [facility] ([facility]) [address] [place] [address] AST [Catalytic activity/Vol] 16 U/L Normal 13-39 [facility] Comment on above: Performed By: #### L [id number] #### [facility] ([facility]) [address] [place] [address] Bilirubin [Mass/Vol] 0.6 mg/dL Normal 0.3-1.0 [facility] Comment on above: Performed By: #### L [id number] #### [facility] ([facility]) [address] [place] [address] Calcium [Mass/Vol] 10.0 mg/dL Normal 8.6-10.3 [facility] Comment on above: Performed By: #### L [id number] #### [facility] ([facility]) [address] [place] [address] Chloride [Moles/Vol] 106 mmol/L Normal 98-107 [facility] Comment on above: Performed By: #### L [id number] #### [facility] ([facility]) [address] [place] [address] CO2 [Moles/Vol] 24 mmol/L Normal 21-31 [facility] Comment on above: Performed By: #### L [id number] #### [facility] ([facility]) [address] [address] Creatinine [Mass/Vol] 1.70 mg/dL High 0.70-1.30 [facility] Comment on above: Performed By: #### L [id number] #### [facility] ([facility]) [address] [place] [address] GLOMERULAR FILTRATION RATE ML/MIN/1.73 SQ M.PREDICTED 42.6 mL/min/1.73m*2 Low >60.0 [facility] Comment on above: Result Comment: [facility]???s estimated glomerular filtration rate (eGFR) will no longer include consideration of race in its calculation. The National Kidney Foundation???s eGFR Task Force developed new recommendations for the estimation of the glomerular filtration rate in the [place] They recommend immediate implementation of the new equation refit without the race variable in all laboratories because the calculation does not include race. In addition to not including race in the calculation and reporting, it included diversity in its development, and has acceptable performance characteristics and potential consequences that do not disproportionately affect any one group of individuals. Performed By: #### L [id number] #### [facility] ([facility]) [address] [place] [address] Glucose [Mass/Vol] 115 mg/dL High 70-100 [facility] Comment on above: Performed By: #### L [id number] #### [facility] ([facility]) [address] [place] [address] Potassium [Moles/Vol] 4.5 mmol/L Normal 3.5-5.1 [facility] Comment on above: Performed By: #### L [id number] #### [facility] ([facility]) [address] [place] [address] Protein [Mass/Vol] 7.6 g/dL Normal 6.0-8.3 [facility] Comment on above: Performed By: #### L [id number] #### [facility] ([facility]) [address] [place] [address] Sodium [Moles/Vol] 138 mmol/L Normal 136-145 [facility] Comment on above: Performed By: #### L [id number] #### [facility] ([facility]) [address] [place] [address] Urea nitrogen [Mass/Vol] 26 mg/dL High 7-25 [facility] Comment on above: Performed By: #### L [id number] #### [facility] ([facility]) [address] [place] [address] UREA NITROGEN/CREATINI NE (MASS RATIO) IN SER/PLAS 15.3 Normal [facility] Comment on above: Performed By: #### L [id number] #### [facility] ([facility]) [address] [place] [address] HEMOGLOBIN A1Con 05-07-2024 Glucose [Mass/Vol] 151 mg/dL Normal [facility] Comment on above: Performed By: #### L [id number] #### [facility] ([facility]) [address] [place] [address] HbA1c (Bld) [Mass fraction] 6.9 % High 4.0-6.0 [facility] Comment on above: Performed By: #### L [id number] #### [facility] ([facility]) [address] [place] [address] LIPID PANELon 05-07-2024 CHOL/HDL 3.4 mg/dL Normal [facility] Comment on above: Performed By: #### L [id number] #### [facility] ([facility]) [address] [place] [address] Cholesterol [Mass/Vol] 151 mg/dL Normal 120-200 [facility] Comment on above: Performed By: #### L [id number] #### [facility] ([facility]) [address] [place] [address] Magnesium [Mass/Vol] 210 mg/dL High 40-149 [facility] Comment on above: Result Comment: TRIG LYCERIDE REFERENCE RANGE: 20 YEARS AND OLDER CARDIOVASCULAR RISK LESS THAN 150 mg/dL LOW RISK 150 TO 199 mg/dL BORDERLINE RISK 200 mg/dL AND GREATER HIGH RISK Performed By: #### L [id number] #### [facility] ([facility]) [address] [place] [address] Magnesium [Mass/Vol] 65 mg/dL Normal 0-160 [facility] Comment on above: Performed By: #### L [id number] #### [facility] ([facility]) [address] [place] [address] Magnesium [Mass/Vol] 44 mg/dL Normal 23-92 [facility] Comment on above: Performed By: #### L [id number] #### [facility] ([facility]) [address] [place] [address] NON HDL CHOL. (LDL+VLDL) 107 Normal [facility] Comment on above: Performed By: #### L [id number] #### [facility] ([facility]) [address] [place] [address] TOTAL VLDL-C 42 mg/dL High 0-40 [facility] Comment on above: Performed By: #### L [id number] #### [facility] ([facility]) [address] [place] [address] Labon 05-07-2024 Lab [id number] Parish Contreras 1955 M Date Provider Department Center 05/07/2024 2245-[facility] LAB RESOURCE [facility] Family History Problem Relation Age of Onset Heart attack Father Other Sister Heart attack Brother Other Brother Family Status - Relation Status Age at Father Sister Brother Normal [facility] Office Visiton 05-07-2024 Follow-up visit [id number] Parish Contreras 1955 M Date Provider Department Center 05/07/2024 281-[facility] Family History Problem Relation Age of Onset Heart attack Father Other Sister Heart attack Brother Other Brother Family Status - Relation Status Age at Father Sister Brother Level of Service:[id number] [place] OFFICE/OUTPATIENT ESTABLISHED MOD MDM 30 MIN (GC) Reason for Visit and Comments: HIV infection, unspecified symptom status (CMS/HCC) [Other] Health Maintenance [619] Med Management [[id number]] Normal [facility] T CELL SUBSET ANALYSISon CD3 67.99 % Normal 65.00-90.00 [facility] Comment on above: Performed By: #### L [id number] #### [facility] ([facility] [address] [place] [address] CD3 ABSOLUTE 1311 cells/mm3 Normal 760-2130 [facility] Comment on above: Performed By: #### L [id number] #### [facility] ([facility]) [address] [place] [address] CD4 30.65 % Low 40.00-70.00 [facility] Comment on above: Performed By: #### L [id number] #### [facility] ([facility] [address] [place] [address] CD4 ABSOLUTE 591 cells/mm3 Normal 430-1185 [facility] Comment on above: Performed By: #### L [id number] #### [facility] ([facility] [facility] [address] [place] [address] CD4:CD8 0.85 Low 1.00-4.00 [facility] Comment on above: Performed By: #### L [id number] #### [facility] ([facility] [address] [facility] [place] [address] CD8 35.91 % Normal 15.00-40.00 [facility] Comment on above: Performed By: #### L [id number] #### [facility] ([facility] [address] [place] [address] CD8 ABSOLUTE 692 cells/mm3 Normal 180-865 [facility] Comment on above: Performed By: #### L [id number] #### [facility] ([facility] [address] [facility] [place] [address] Refillon 05-06-2024 Refill [id number] Parish Contreras 1955 M Date Provider Department Center 05/06/2024 281-SNEHA TANNERIU A [facility] Family History Problem Relation Age of Onset Heart attack Father Other Sister Heart attack Brother Other Brother Family Status - Relation Status Age at Father Sister Brother Reason for Visit and Comments: Med Refill [[id number]] Normal [facility] Office Visiton 04-17-2024 Follow-up visit [id number] Parish Contreras 1955 M Date Provider Department Center 04/17/2024 120-OLIVER, ALLYSON [facility] Family History Problem Relation Age of Onset Heart attack Father Other Sister Heart attack Brother Other Brother Family Status - Relation Status Age at Father Sister Brother Level of Service:19054 [place] OFFICE/OUTPATIENT ESTABLISHED LOW MDM 20 MIN Normal [facility] Refillon 03-06-2024 Refill [id number] Parish Contreras 1955 M Date Provider Department Center 03/06/2024 281-SNEHA TANNERIU A [facility] Family History Problem Relation Age of Onset Heart attack Father Other Sister Heart attack Brother Other Brother Family Status - Relation Status Age at Father Sister Brother Reason for Visit and Comments: Med Refill [[id number]] Normal [facility] Refillon 01-08-2024 Refill [id number] Parish Contreras 1955 M Date Provider Department Center 01/08/2024 281-SNEHA TANNERIU A [facility] Family History Problem Relation Age of Onset Heart attack Father Other Sister Heart attack Brother Other Brother Family Status - Relation Status Age at Father Sister Brother Reason for Visit and Comments: Med Refill [[id number]] Normal [facility] 36on 12-12-2023 36 Last visit 11/21/2023 No follow up appt 11/21/2023 creat 2.05, cd4 559, VL not det No eligibility Normal [facility] Refillon 12-12-2023 Refill [id number] Parish Contreras 1955 M Date Provider Department Center 12/12/2023 SUSHILA HAND [facility] IN[facility] Family History Problem Relation Age of Onset Heart attack Father Other Sister Heart attack Brother Other Brother Family Status - Relation Status Age at Father Sister Brother Reason for Visit and Comments: Med Refill [[id number]] Normal [facility] CBC WITH AUTO DIFFERENTIALon 11-21-2023 Basophils (Bld) [#/Vol] 0.02 10*3/uL Normal 0.00-0.20 [facility] Comment on above: Performed By: #### L [id number] ####[facility] ([facility])[address] [facility] [address] Basophils/100 WBC (Bld) 0.4 % Normal 0.0-1.0 [facility] Comment on above: Performed By: #### L [id number] ####[facility] ([facility])[address] [facility] [address] Eosinophils (Bld) [#/Vol] 0.07 10*3/uL Normal 0.00-0.50 [facility] Comment on above: Performed By: #### L [id number] ####[facility] ([facility])[address] [facility] [address] Eosinophils/100 WBC (Bld) 1.3 % Normal 0.0-6.0 [facility] Comment on above: Performed By: #### L [id number] ####[facility] ([facility])[address] [facility] [address] Erythrocyte distribution width (RBC) [Ratio] 13.2 % Normal 11.5-15.0 [facility] Comment on above: Performed By: #### L [id number] ####[facility] ([facility])[address] [place] [address] ERYTHROCYTE MEAN CORPUSCULAR HEMOGLOBIN CONCENTRATION (G/DL) BY AUTOMATED 33.9 g/dL Normal 32.0-35.0 [facility] Comment on above: Performed By: #### L [id number] ####[facility] ([facility])[address] [place] [address] Hematocrit (Bld) [Volume fraction] 47.8 % Normal 39.0-55.0 [facility] Comment on above: Performed By: #### L [id number] ####[facility] ([facility] [place] [address] Hemoglobin (Bld) [Mass/Vol] 16.2 g/dL Normal 13.0-17.0 [facility] Comment on above: Performed By: #### L [id number] ####[facility] ([facility] [place] [address] Immature granulocytes (Bld) [#/Vol] 0.01 10*3/uL Normal 0.00-0.20 [facility] Comment on above: Performed By: #### L [id number] ####[facility] ([facility] [place] [address] Immature granulocytes/100 WBC (Bld) 0.2 % Normal 0.0-1.0 [facility] Comment on above: Performed By: #### L [id number] ####[facility] ([facility] [place] [address] IMMATURE PLATELET FRACTION % 2.5 % Normal 0.8-6.3 [facility] Comment on above: Performed By: #### L [id number] ####[facility] ([facility] [place] [address] Lymphocytes (Bld) [#/Vol] 1.82 10*3/uL Normal 1.20-4.00 [facility] Comment on above: Performed By: #### L [id number] ####[facility] ([facility] [place] [address] Lymphocytes/100 WBC (Bld) 34.4 % Normal 20.0-45.0 [facility] Comment on above: Performed By: #### L [id number] ####[facility] ([facility] [place] [address] MCH (RBC) [Entitic mass] 31.1 pg Normal 27.0-33.0 [facility] Comment on above: Performed By: #### L [id number] ####[facility] ([facility] [place] [address] MCV (RBC) [Entitic vol] 91.7 fL Normal 82.0-98.0 [facility] Comment on above: Performed By: #### L [id number] ####[facility] ([facility] [place] [address] Monocytes (Bld) [#/Vol] 0.38 10*3/uL Normal 0.10-1.00 [facility] Comment on above: Performed By: #### L [id number] ####[facility] ([facility] [place] [address] Monocytes/100 WBC (Bld) 7.2 % Normal 5.0-12.0 [facility] Comment on above: Performed By: #### L [id number] ####[facility] ([facility] [place] [address] Neutrophils (Bld) [#/Vol] 2.99 10*3/uL Normal 1.60-7.60 [facility] Comment on above: Performed By: #### L [id number] ####[facility] ([facility] [place] [address] Neutrophils/100 WBC (Bld) 56.5 % Normal 40.0-72.0 [facility] Comment on above: Performed By: #### L [id number] ####[facility] ([facility] [place] [address] NRBC (PER 100 WBCS) BY AUTOMATED COUNT 0.0 % Normal 0 [facility] Comment on above: Performed By: #### L [id number] ####[facility] ([facility])[address] [place] [address] PLATELETS (10*3/UL) IN BLOOD AUTOMATED COUNT 123 10*3/uL Low 150-400 [facility] Comment on above: Performed By: #### L [id number] ####[facility] ([facility] [place] [address] RBC (Bld) [#/Vol] 5.21 10*6/uL Normal 4.20-5.70 [facility] Comment on above: Performed By: #### L [id number] ####[facility] ([facility] [place] [address] WBC (Bld) [#/Vol] 5.29 10*3/uL Normal 4.00-10.60 [facility] Comment on above: Performed By: #### L [id number] ####[facility] ([facility] [place] [address] CHLAMYDIA TRACHOMATIS AND NE ISSERIA GONORRHEA, TMAon 11-21-2023 CHLAMYDIA TRACHOMATIS DNA PROBE (PRESENCE) IN UNSP SPEC Negative Normal Negative [facility] Comment on above: Result Comment: No C hlamydia trachomatis rRNA Detected. The Aptima Combo 2 Assay is a FDA approved target amplification nucleic acid probe test that utilizes target capture for the in vitro qualitative detection and differentiation of ribosomal RNA (rRNA) from Chlamydia trachomatis (CT) and/or Neisseria gonorrhoeae (GC) to aid the diagnosis of chlamydial and/or gonococcal urogenital disease using the [facility] System. The Aptima Combo 2 Assay involves target capture, target amplification by Document Review Specialist-Mediated Amplification (TMA), and the detection of the amplification products (amplicon) by the Hybridization Protection Assay (HPA). The internal process controls of the [facility] System monitor the target capture, amplification, and detection steps of the assay, this is not intended to control for sampling adequacy. Performed By: #### L [id number] #### [facility] ([facility] [address] [place] [address] NEISSERIA GONORRHOEAE DNA PROBE (PRESENCE) IN UNSP SPEC Negative Normal Negative [facility] Comment on above: Result Comment: No N eisseria gonorrhoeae rRNA Detected. The Aptima Combo 2 Assay is a FDA approved target amplification nucleic acid probe test that utilizes target capture for the in vitro qualitative detection and differentiation of ribosomal RNA (rRNA) from Chlamydia trachomatis (CT) and/or Neisseria gonorrhoeae (GC) to aid the diagnosis of chlamydial and/or gonococcal urogenital disease using the [facility] System. The Aptima Combo 2 Assay involves target capture, target amplification by Document Review Specialist-Mediated Amplification (TMA), and the detection of the amplification products (amplicon) by the Hybridization Protection Assay (HPA). The internal process controls of the [facility] System monitor the target capture, amplification, and detection steps of the assay, this is not intended to control for sampling adequacy. Performed By: #### L [id number] #### [facility] ([facility] [address] [place] [address] COMPREHENSIVE METABOLIC PANE Azam 11-21-2023 Albumin [Mass/Vol] 4.7 g/dL Normal 3.5-5.7 [facility] Comment on above: Performed By: #### L [id number] #### [facility] ([facility] [address] [place] [address] ALP [Catalytic activity/Vol] 62 U/L Normal 34-104 [facility] Comment on above: Performed By: #### L [id number] #### [facility] ([facility] [address] [place] [address] ALT [Catalytic activity/Vol] 17 U/L Normal 7-52 [facility] Comment on above: Performed By: #### L [id number] #### [facility] ([facility] [address] [place] [address] Anion gap [Moles/Vol] 11 mmol/L Normal 7-20 [facility] Comment on above: Performed By: #### L [id number] #### [facility] ([facility] [address] [place] [address] AST [Catalytic activity/Vol] 16 U/L Normal 13-39 [facility] Comment on above: Performed By: #### L [id number] #### [facility] ([facility] [address] [place] [address] Bilirubin [Mass/Vol] 0.6 mg/dL Normal 0.3-1.0 [facility] Comment on above: Performed By: #### L [id number] #### [facility] [address] [place] [address] Calcium [Mass/Vol] 9.9 mg/dL Normal 8.6-10.3 [facility] Comment on above: Performed By: #### L [id number] #### [facility] ([facility] [address] [place] [address] Chloride [Moles/Vol] 104 mmol/L Normal 98-107 [facility] Comment on above: Performed By: #### L [id number] #### [facility] ([facility] [address] [place] [address] CO2 [Moles/Vol] 27 mmol/L Normal 21-31 [facility] Comment on above: Performed By: #### L [id number] #### [facility] ([facility] [address] [place] [address] Creatinine [Mass/Vol] 2.05 mg/dL High 0.70-1.30 [facility] Comment on above: Performed By: #### L [id number] #### [facility] ([facility] [address] [place] [address] GLOMERULAR FILTRATION RATE ML/MIN/1.73 SQ M.PREDICTED 34.2 mL/min/1.73m*2 Low >60.0 [facility] Comment on above: Result Comment: The [facility]???s estimated glomerular filtration rate (eGFR) will no longer include consideration of race in its calculation. The National Kidney Foundation???s eGFR Task Force developed new recommendations for the estimation of the glomerular filtration rate in the [place] They recommend immediate implementation of the new equation refit without the race variable in all laboratories because the calculation does not include race. In addition to not including race in the calculation and reporting, it included diversity in its development, and has acceptable performance characteristics and potential consequences that do not disproportionately affect any one group of individuals. Performed By: #### L [id number] #### [facility] ([facility] [address] [place] [address] Glucose [Mass/Vol] 115 mg/dL High 70-100 [facility] Comment on above: Performed By: #### L [id number] #### [facility] ([facility] [address] [place] [address] Potassium [Moles/Vol] 4.9 mmol/L Normal 3.5-5.1 [facility] Comment on above: Performed By: #### L [id number] #### [facility] ([facility] [address] [place] [address] Protein [Mass/Vol] 7.6 g/dL Normal 6.0-8.3 [facility] Comment on above: Performed By: #### L [id number] #### [facility] ([facility] [address] [place] [address] Sodium [Moles/Vol] 137 mmol/L Normal 136-145 [facility] Comment on above: Performed By: #### L [id number] #### [facility] ([facility] [address] [place] [address] Urea nitrogen [Mass/Vol] 30 mg/dL High 7-25 [facility] Comment on above: Performed By: #### L [id number] #### [facility] ([facility] [address] [place] [address] UREA NITROGEN/CREATINI NE (MASS RATIO) IN SER/PLAS 14.6 Normal [facility] Comment on above: Performed By: #### L [id number] #### [facility] ([facility] [address] [place] [address] DIGOXIN LEVELon 11-21-2023 DIGOXIN (NG/ML) IN SER/PLAS <0.3 Low 0.7-2 [facility] Comment on above: Performed By: #### L [id number] ####[facility] ([facility] [place] [address] HEMOGLOBIN A1Con 11-21-2023 Glucose [Mass/Vol] 189 mg/dL Normal [facility] Comment on above: Performed By: #### L [id number] #### [facility] [address] [place] [address] HbA1c (Bld) [Mass fraction] 8.2 % High 4.0-6.0 [facility] Comment on above: Performed By: #### L [id number] #### [facility] [address] [place] [address] LIPID PANELon 11-21-2023 CHOL/HDL 3.8 mg/dL Normal [facility] Comment on above: Performed By: #### L [id number] #### [facility] ([facility] [address] [place] [address] Cholesterol [Mass/Vol] 140 mg/dL Normal 120-200 [facility] Comment on above: Performed By: #### L [id number] #### [facility] ([facility] [address] [place] [address] Magnesium [Mass/Vol] 207 mg/dL High 40-149 [facility] Comment on above: Result Comment: TRIG LYCERIDE REFERENCE RANGE: 20 YEARS AND OLDER CARDIOVASCULAR RISK LESS THAN 150 mg/dL LOW RISK 150 TO 199 mg/dL BORDERLINE RISK 200 mg/dL AND GREATER HIGH RISK Performed By: #### L [id number] #### [facility] ([facility] [address] [place] [address] Magnesium [Mass/Vol] 62 mg/dL Normal 0-160 [facility] Comment on above: Performed By: #### L [id number] #### [facility] ([facility] [address] [place] [address] Magnesium [Mass/Vol] 37 mg/dL Normal 23-92 [facility] Comment on above: Performed By: #### L [id number] #### [facility] ([facility] [address] [place] [address] NON HDL CHOL. (LDL+VLDL) 103 Normal [facility] Comment on above: Performed By: #### L [id number] #### [facility] [address] [place] [address] TOTAL VLDL-C 41 mg/dL High 0-40 [facility] Comment on above: Performed By: #### L [id number] #### [facility] ([facility] [address] [place] [address] Labon 11-21-2023 Lab [id number] Parish Contreras 1955 M Date Provider Department Center 11/21/2023 2245-[facility] RESOURCE [facility] Family History Problem Relation Age of Onset Heart attack Father Other Sister Heart attack Brother Other Brother Family Status - Relation Status Age at Father Sister Brother Normal [facility] Office Visiton 11-21-2023 Follow-up visit [id number] Parish Contreras 1955 M Date Provider Department Center 11/21/2023 281-SUSHILA TANNER [facility] Family History Problem Relation Age of Onset Heart attack Father Other Sister Heart attack Brother Other Brother Family Status - Relation Status Age at Father Sister Brother Level of Service:25358 [place] OFFICE/OUTPATIENT ESTABLISHED MOD MDM 30 MIN Reason for Visit and Comments: HIV Positive/AIDS [109] Health Maintenance [619] Normal [facility] RPRon 11-21-2023 REAGIN AB PRESENCE IN SERUM BY RPR Non-Reactive Normal Nonreactive [facility] Comment on above: Performed By: #### L [id number] #### [facility] ([facility] [address] [place] [address] T CELL SUBSET ANALYSISon CD3 70.21 % Normal 65.00-90.00 [facility] Comment on above: Performed By: #### L [id number] #### [facility] ([facility] [address] [place] [address] CD3 ABSOLUTE 1278 cells/mm3 Normal 760-2130 [facility] Comment on above: Performed By: #### L [id number] #### [facility] ([facility] [address] [place] [address] CD4 30.70 % Low 40.00-70.00 [facility] Comment on above: Performed By: #### L [id number] #### [facility] ([facility] [address] [place] [address] CD4 ABSOLUTE 559 cells/mm3 Normal 430-1185 [facility] Comment on above: Performed By: #### L [id number] #### [facility] ([facility] [address] [place] [address] CD4:CD8 0.81 Low 1.00-4.00 [facility] Comment on above: Performed By: #### L [id number] #### [facility] ([facility] [address] [place] [address] CD8 37.84 % Normal 15.00-40.00 [facility] Comment on above: Performed By: #### L [id number] #### [facility] [address] [place] [address] CD8 ABSOLUTE 689 cells/mm3 Normal 180-865 [facility] Comment on above: Performed By: #### L [id number] #### [facility] [address] [place] [address] Office Visiton 10-24-2023 Follow-up visit [id number] Parish Contreras 1955 M Date Provider Department Center 10/24/2023 1596-[facility] Family History Problem Relation Age of Onset Heart attack Father Other Sister Heart attack Brother Other Brother Family Status - Relation Status Age at Father Sister Brother Level of Service:51316 [place] OFFICE/OUTPATIENT ESTABLISHED MOD MDM 30 MIN Normal [facility] Ref[place] 09-20-2023 Refill [id number] Parish Contreras 1955 M Date Provider Department Center 09/20/2023 281-SUSHILA TANNER [facility] Family History Problem Relation Age of Onset Heart attack Father Other Sister Heart attack Brother Other Brother Family Status - Relation Status Age at Father Sister Brother Reason for Visit and Comments: Med Refill [[id number]] [facility] Refillon 08-21-2023 Refill [id number] BenParish Jones 1955 M Date Provider Department Center 08/21/2023 NEELIMAANNIKABryanSUSHILA Bertrand [facility] History Problem Relation Age of Onset Heart attack Father Other Sister Heart attack Brother Other Brother Family Status - Relation Status Age at Father Sister Brother Reason for Visit and Comments: Med Refill [[id number]] [facility] Ref[place] 07-04-2023 Refill [id number] BenParish Robert 1955 M Date Provider Department Center 07/04/2023 281-SUSHILA TANNER [facility] Family History Problem Relation Age of Onset Heart attack Father Other Sister Heart attack Brother Other Brother Family Status - Relation Status Age at Father Sister Brother Reason for Visit and Comments: Med Refill [[id number]] [facility] Ambulatory Visit Summaryon 0 02-08-2023 Ambulatory Visit Summary BEN PARISH Jones :1955 Visit Date:02/08/2023 Ambulatory Visit Instructions Your Diagnosis Personal history of colonic polyps Your Care Team Attending Physician - ROSITA LANDEROS, Jose He Primary Care Physician - Chidi LANDEROS, Jonas Referring Physician - Jonas Murillo MD This Is Your Medications List Contact prescribing physician if questions or concerns apixaban (Eliquis 2.5 mg oral tablet) cobicistat-darunavir (Prezcobix 800 mg-150 mg oral tablet) digoxin (Lanoxin 125 mcg Tab) diltiazem (Cardizem 60 mg Tab) dolutegravir (Tivicay 50 mg oral tablet) empagliflozin (Jardiance 10 mg oral tablet) isosorbide mononitrate (isosorbide mononitrate 30 mg ER Tab) levothyroxine (levothyroxine 50 mcg (0.05 mg) Tab) metformin (metformin 1000 mg Tab) metoprolol (metoprolol 50 mg ER Tab) nitroglycerin (nitroglycerin 0.4 mg sublingual Tab) pregabalin (Lyrica 50 mg Cap) rosuvastatin (Crestor 20 mg Tab) tamsulosin (Flomax 0.4 mg Cap) tramadol (Ultram 50 mg Tab) Procedures Performed Colonoscopy (12/16/2009), Repair of umbilical hernia (12/16/2009), CABG - Coronary artery bypass graft, Implantation of insertable loop recorder, Incision and drainage of abscess, Laparoscopic cholecystectomy. Discharge Vitals Heart Rate (Peripheral) 68 Respiratory Rate 16 Blood Pressure 112/64 Height 180.34 cm Height 71 in Weight 88.8 kg Weight 195.36 lb BMI 27.3 Medications What How Much When Instructions Unchanged apixaban (Eliquis 2.5 mg oral tablet) 1 Tablets By Mouth 2 times a day Contact prescribing physician if questions or concerns Unchanged cobicistat-darunavir (Prezcobix 800 mg-150 mg oral tablet) 1 Tablets By Mouth Every day Contact prescribing physician if questions or concerns Unchanged digoxin (Lanoxin 125 mcg Tab) 1 Tablets By Mouth Every day Contact prescribing physician if questions or concerns Unchanged diltiazem (Cardizem 60 mg Tab) 1 Tablets By Mouth 3 times a day Contact prescribing physician if questions or concerns Unchanged dolutegravir (Tivicay 50 mg oral tablet) 1 Tablets By Mouth Every day Contact prescribing physician if questions or concerns Unchanged empagliflozin (Jardiance 10 mg oral tablet) 1 Tablets By Mouth Once a day (in the morning) Contact prescribing physician if questions or concerns Unchanged isosorbide mononitrate (isosorbide mononitrate 30 mg ER Tab) 1 Tablets By Mouth Once a day (in the morning) Contact prescribing physician if questions or concerns Unchanged levothyroxine (levothyroxine 50 mcg (0.05 mg) Tab) 1 Tablets By Mouth Every day Contact prescribing physician if questions or concerns Unchanged metformin (metformin 1000 mg Tab) 1 Tablets By Mouth 2 times a day Contact prescribing physician if questions or concerns Unchanged metoprolol (metoprolol 50 mg ER Tab) 0.5 Tablets By Mouth Every day Contact prescribing physician if questions or concerns Unchanged nitroglycerin (nitroglycerin 0.4 mg sublingual Tab) 1 Tablets Sublingual Every 5 minutes as needed for for chest pain Contact prescribing physician if questions or concerns Unchanged pregabalin (Lyrica 50 mg Cap) 1 Capsules By Mouth 3 times a day Contact prescribing physician if questions or concerns Unchanged rosuvastatin (Crestor 20 mg Tab) 1 Tablets By Mouth Every day Contact prescribing physician if questions or concerns Unchanged tamsulosin (Flomax 0.4 mg Cap) 1 Capsules By Mouth Every day Contact prescribing physician if questions or concerns Unchanged tramadol (Ultram 50 mg Tab) as directed Contact prescribing physician if questions or concerns Allergies Cipro (Unknown) sulfa drugs (Unknown) Problems Ongoing - Any problem that you are currently receiving treatment for. Anemia Atherosclerotic heart disease Atrial flutter BPH (benign prostatic hyperplasia) Bradycardia Cardiomyopathy, ischemic Cortical blindness Diabetes History of colonic polyps History of myocardial infarction HIV disease HTN (hypertension) Hx-TIA (transient ischemic attack) Hyperlipidemia Hypertriglyceridemia Hypothyroidism Inflammatory polyneuropathy Paroxysmal A-fib Personal history of colonic polyps Normal [facility] Consultation Noteon 02-08-20 23 Consultation Note [id number]:127 Normal [facility] Physician Referralon 023 Physician Referral [id number]:127 Normal [facility] CA 19-9on 09-15-2022 CA 19-9 18 U/mL Normal 0-35 [facility] Comment on above: Result Comment: [employer] Electrochemiluminescence Immunoassay (ECLIA) . Values obtained with different assay methods or kits cannot be used interchangeably. Results cannot be interpreted as absolute evidence of the presence or absence of malignant disease. Performed By: #### C A 19,9 ####[facility] [address] [place], [place] [address]KgDr. Jose Gonsales CEAon 09-15-2022 CEA 0.8 ng/mL Normal 0.0-4.7 [facility] Comment on above: Result Comment: Nons mokers <3.9 Smokers <5.6 . [employer] Electrochemiluminescence Immunoassay (ECLIA) . Values obtained with different assay methods or kits cannot be used interchangeably. Results cannot be interpreted as absolute evidence of the presence or absence of malignant disease. Performed By: #### H PYLLC #### [facility] [address] [place], [place] [address] Dr. Jose Gonsales H PYLORI ANTIBODY IGGon 08-26 H. PYLORI IGG ABS 0.23 Index Value Normal 0.00-0.79 [facility] Comment on above: Result Comment: Nega tive <0.80 Equivocal 0.80 - 0.89 Positive >0.89 Performed By: #### H PYLLC #### [facility] [address] [place] [address] Dr. Jose Gonsales AMMONIAon 09-14-2022 Ammonia (P) [Moles/Vol] 13 umol/L Normal 11-32 [facility] Comment on above: Performed By: #### P TTHEP #### [facility] [address] [place] [address] Dr. Jose Gonsales AMYLASEon 09-14-2022 Amylase [Catalytic activity/Vol] 47 U/L Normal 25-115 [facility] Comment on above: Performed By: #### P TTHEP #### [facility] [address] [place] [address] Dr. Jose Gonsales CBC AUTO DIFFon 09-14-2022 BASO # 0.0 103/ul Normal 0.0-0.1 [facility] Comment on above: Performed By: #### C BC ####[facility] [address] [place] [address]Dr. Jose Gonsales Basophils/100 WBC (Bld) 0.2 % Normal 0.2-2.0 [facility] Comment on above: Performed By: #### C BC ####[facility] [address] [place], [place] [address]DrLuci Gonsales EO # 0.2 103/ul Normal 0.0-0.7 [facility] Comment on above: Performed By: #### C BC ####[facility] [address] [place], [place] [address]DrLuci Gonsales Eosinophils/100 WBC (Bld) 3.4 % Normal 0.9-7.0 [facility] Comment on above: Performed By: #### C BC ####[facility] [address] [place] [address]DrLuci Gonsales Erythrocyte distribution width (RBC) [Ratio] 13.7 % Normal 11.0-15.0 [facility] Comment on above: Performed By: #### C BC ####[facility] [address] [place] [address]Dr. Jose Gonsales Hematocrit (Bld) [Volume fraction] 44.0 % Normal 42.0-54.0 [facility] Comment on above: Performed By: #### C BC ####[facility] [address] [place] [address]Dr. Jose Dru Hemoglobin (Bld) [Mass/Vol] 14.4 g/dL Normal 14.0-18.0 [facility] Comment on above: Performed By: #### C BC ####[facility] [address] [place], [place] [address]Dr. Dorindaedward Gonsales IG # 0.01 10e3/ul Normal 0.00-0.03 [facility] Comment on above: Performed By: #### C BC ####[facility] [address] [place], [place] [address]Dr. Jose Gonsales IG % 0.2 % Normal 0.0-0.5 [facility] Comment on above: Performed By: #### C BC ####[facility] [address] [place], [place] [address]Dr. Dorindaedward Gonsales LYMPH # 1.4 103/ul Normal 1.2-3.8 [facility] Comment on above: Performed By: #### C BC ####[facility] [address] [place], [place] [address]Dr. Jose Gonsales Lymphocytes/100 WBC (Bld) 31.6 % Normal 20.5-60.0 [facility] Comment on above: Performed By: #### C BC ####[facility] [address] [place], [place] [address]Dr. Dorindaedward Gonsales MANUAL DIFF REQ NO Normal [facility] Comment on above: Performed By: #### C BC ####[facility] [address] [place], [place] [address]Dr. Jose Gonsales MCH (RBC) [Entitic mass] 29.8 pg Normal 25.9-34.0 [facility] Comment on above: Performed By: #### C BC ####[facility] [address] [place] [id number]. Jose Dru MCHC (RBC) [Mass/Vol] 32.7 g/dL Normal 29.9-35.2 [facility] Comment on above: Performed By: #### C BC ####[facility] [address] [place] [id number]. Jose Gonsales MCV (RBC) [Entitic vol] 91.1 fL Normal 80.0-94.0 [facility] Comment on above: Performed By: #### C BC ####[facility] [address] [place], [place] [address]Dr. Jose Gonsales MONO # 0.4 103/ul Normal 0.3-0.8 [facility] Comment on above: Performed By: #### C BC ####[facility] [address] [place], [place] [address]Dr. Jose Gonsales Monocytes/100 WBC (Bld) 8.4 % Normal 1.7-12.0 [facility] Comment on above: Performed By: #### C BC ####[facility] [address] [place], [place] [address]Dr. Jose Gonsales NEUT # 2.5 103/ul Normal 1.4-6.5 [facility] Comment on above: Performed By: #### C BC ####[facility] [address] [place], [place] [address]Dr. Jose Gonsales Neutrophils/100 WBC (Bld) 56.2 % Normal 43.0-75.0 [facility] Comment on above: Performed By: #### C BC ####[facility] [address] [place], [place] [address]Dr. Jose Gonsales Platelet mean volume (Bld) [Entitic vol] 10.4 fL Normal 9.5-13.5 [facility] Comment on above: Performed By: #### C BC ####[facility] [address] [place], [place] [address]Dr. Jose Gonsales PLT 122 103/ul Critically low 150-450 [facility] Comment on above: Performed By: #### C BC ####[facility] [address] [place] [id number]. Jose Gonsales RBC 4.83 106/ul Normal 4.70-6.10 [facility] Comment on above: Performed By: #### C BC ####[facility] [address] [place] [id number]. Jose Gonsales WBC 4.4 103/ul Normal 4.0-11.0 [facility] Comment on above: Performed By: #### C BC ####[facility] [address] [place] [id number]. Jose Dru FREE THYROXINE INDEX T7on FTI 1.86 Normal 1.30-4.50 [facility] Comment on above: Performed By: #### C MP, T7, LIPA, TSH, YFN ####[facility] [address] [place] [address]DrLuci Jose Dru T3U 35.0 % Normal 33.0-40.0 [facility] Comment on above: Performed By: #### C MP, T7, LIPA, TSH, YFN ####[facility] [address] [place] [address]Dr. Jose Dru T4 [Mass/Vol] 5.30 ug/dL Normal 4.50-12.10 [facility] Comment on above: Performed By: #### C MP, T7, LIPA, TSH, YFN ####[facility] [address] [place] [address]DrLuci Sethedward Dru IRONon 09-14-2022 Iron [Mass/Vol] 47.0 ug/dL Critically low 65.0-175.0 [facility] Comment on above: Performed By: #### P TTHEP #### [facility] [address] [place] [address] [address] Jose Gonsales LIPASEon 09-14-2022 Lipase [Catalytic activity/Vol] 182.0 U/L Normal 73.0-393.0 [facility] Comment on above: Performed By: #### P TTHEP #### [facility] [address] [place] [address] [address] Jose Gonsales PROF 14(COMP METB)on 022 Albumin [Mass/Vol] 3.5 g/dL Normal 3.4-5.0 [facility] Comment on above: Performed By: #### C MP, T7, LIPA, TSH, YFN ####[facility] [address] [place] [address]Dr. Jose Gonsales Albumin/Globulin [Mass ratio] 0.9 {ratio} Normal [facility] Comment on above: Performed By: #### C MP, T7, LIPA, TSH, YFN ####[facility] [address] [place] [address]Dr. Jose Gonsales ALP [Catalytic activity/Vol] 64 U/L Normal 46-116 [facility] Comment on above: Performed By: #### C MP, T7, LIPA, TSH, YFN ####[facility] [address] [place] [address]Dr. Jose Gonsales ALT [Catalytic activity/Vol] 16 U/L Normal 16-63 [facility] Comment on above: Performed By: #### C MP, T7, LIPA, TSH, YFN ####[facility] [address] [place] [address]Dr. Jose Gonsales Anion gap [Moles/Vol] 9.6 mmol/L Normal [facility] Comment on above: Performed By: #### C MP, T7, LIPA, TSH, YFN ####[facility] [address] [place] [address]Dr. Jose Gonsales AST [Catalytic activity/Vol] 16 U/L Normal 15-37 [facility] Comment on above: Performed By: #### C MP, T7, LIPA, TSH, YFN ####[facility] [address] [place] [address]Dr. Jose Gonsales Bilirubin [Mass/Vol] 0.3 mg/dL Normal 0.2-1.0 [facility] Comment on above: Performed By: #### C MP, T7, LIPA, TSH, YFN ####[facility] [address] [place] [address]Dr. Jose Gonsales Calcium [Mass/Vol] 9.3 mg/dL Normal 8.5-10.1 [facility] Comment on above: Performed By: #### C MP, T7, LIPA, TSH, YFN ####[facility] [address] [place], [place] [address]Dr. Jose Gonsales Chloride [Moles/Vol] 104 mmol/L Normal 98-107 [facility] Comment on above: Performed By: #### C MP, T7, LIPA, TSH, YFN ####[facility] [address] [place], [place] [address]Dr. Jose Gonsales CO2 [Moles/Vol] 28.9 mmol/L Normal 21.0-32.0 The [facility] Comment on above: Performed By: #### C MP, T7, LIPA, TSH, YFN ####[facility] [address] [place], [place] [address]Dr. Jose Gonsales Creatinine [Mass/Vol] 1.96 mg/dL Critically high 0.70-1.30 [facility] Comment on above: Performed By: #### C MP, T7, LIPA, TSH, YFN ####[facility] [address] [place], [place] [address]Dr. Jose Gonsales EGFR-AF MOZAMBICAN 41 mL/min/1.73m2 Critically low >=60 [facility] Comment on above: Performed By: #### C MP, T7, LIPA, TSH, YFN ####[facility] [address] [place], [place] [address]Dr. Jose Gonsales EGFR-NON AF MOZAMBICAN 34 mL/min/1.73m2 Critically low >=60 [facility] Comment on above: Performed By: #### C MP, T7, LIPA, TSH, YFN ####[facility] [address] [place], [place] [address]Dr. Jose Gonsales Globulin (S) [Mass/Vol] 3.7 g/dL Normal [facility] Comment on above: Performed By: #### C MP, T7, LIPA, TSH, YFN ####[facility] [address] [place] [address]Dr. Jose Gonsales Glucose [Mass/Vol] 161 mg/dL Critically high 74-106 [facility] Comment on above: Performed By: #### C MP, T7, LIPA, TSH, YFN ####[facility] [address] [place] [address]Dr. Jose Gonsales Potassium [Moles/Vol] 4.5 mmol/L Normal 3.5-5.1 [facility] Comment on above: Performed By: #### C MP, T7, LIPA, TSH, YFN ####[facility] [address] [place], [place] [address]Dr. Jose Gonsales Protein [Mass/Vol] 7.2 g/dL Normal 6.4-8.2 [facility] Comment on above: Performed By: #### C MP, T7, LIPA, TSH, YFN ####[facility] [address] [place], [place] [address]Dr. Jose Gonsales Sodium [Moles/Vol] 138 mmol/L Normal 136-145 [facility] Comment on above: Performed By: #### C MP, T7, LIPA, TSH, YFN ####[facility] [address] [place], [place] [address]Dr. Jose Gonsales Urea nitrogen [Mass/Vol] 33.0 mg/dL Critically high 7.0-18.0 [facility] Comment on above: Performed By: #### C MP, T7, LIPA, TSH, YFN ####[facility] [address] [place], [place] [address]Dr. Jose Gonsales Urea nitrogen/Creatini ne [Mass ratio] 16.8 mg/mg Normal [facility] Comment on above: Performed By: #### C MP, T7, LIPA, TSH, YFN ####[facility] [address] [place], [place] [address]Dr. Jose Gonsales TSHon 09-14-2022 TSH 1.868 uIU/mL Normal 0.358-3.740 [facility] Comment on above: Performed By: #### C MP, T7, LIPA, TSH, YFN ####[facility] [address] [place], [place] [address]DuDr. Jose Gonsales DIGOXINon 05-16-2022 DIG 0.6 ng/mL Critically low 0.9-2.0 [facility] Comment on above: Performed By: #### D IG #### [facility] [address] [place], [place] [address] Dr. Jose Gonsales Cardiovascular Lab Reporton 04-06-2022 Cardiovascular Lab Report [facility] Patient Name: Parish Contreras [facility] MR #: [id number] Physician: Eleno Ruvalcaba of [facility] Service Date: 04/05/2022 Division of Birthdate: 1955 Cardiology Room #: [facility] Cardiovascular Services [facility] [address] [facility]. [place] [address] Cardiovascular Laboratory Report INDICATION: The patient is a 67-year-old man with history of coronary artery disease, status post bypass surgery in 2006. He recently was evaluated in Cardiology Clinic after he was admitted to an emergency room with new onset atrial flutter and rapid ventricular response and elevated troponin in the setting of having diarrhea and vomiting. He also had a history of a prior syncope and atrial flutter in April 2021. He has chronic kidney disease stage 3b since 2019 and follows with Nephrology. He was maximized on medical therapy and continued to have shortness of breath on exertion. A stress test was performed, that showed a large area of transmural decreased uptake in the inferior wall extending to the apex demonstrating small amount of redistribution on rest imaging. Because of that, he was referred for cardiac catheterization while understanding the risks and benefits including the risk of worsening renal function. PROCEDURE: 1. Right heart catheterization. 2. Bilateral selective coronary angiography. 3. Bypass graft angiography. 4. Limited right common femoral angiography. 5. Access in the right common femoral artery and vein under ultrasound guidance. 6. Deployment of Angio-Seal vascular closure device in the right common femoral artery. METHODS: Procedure was explained to the patient with risks and benefits. He signed the consent. He was brought to manufacturing lab technician in a fasting state. The right groin area was prepped and draped in usual fashion. Micropuncture technique and ultrasound guidance were used for access in the right common femoral artery. Inner cannula angiography was performed, followed by upsizing to the 5-Tanzanian x 11 cm sheath. Access was obtained using same technique in the right common femoral vein and a 6-Tanzanian x 11 cm sheath was placed. A 6-Tanzanian Miller catheter was used to right heart catheterization with measurement pressures of and calculation of cardiac output using the estimated [place] method Miller catheter was removed. Bilateral selective coronary angiography was then performed using 5-Tanzanian JL4 and JR4 diagnostic catheters. The JR4 diagnostic catheter was used to selectively engage the radial graft to the obtuse marginal branch #1, angiography was performed. The catheter was used to selectively engage the saphenous venous graft to the diagonal branch, angiography was performed. The catheter was exchanged to a 5-Tanzanian AR modified diagnostic catheter, which was used to selectively engage the saphenous venous graft to the PDA, angiography was performed. A 5-Tanzanian FABIANA catheter was used to selectively engage the left subclavian artery and then selectively engage the left internal mammary artery, angiography was performed. Catheter was removed. Procedure was concluded. A 6-Tanzanian Angio-Seal device was used for hemostasis in the right common femoral artery. Manual compression was used for hemostasis in the right common femoral vein. He tolerated the procedure well. He will be observed for 3 hours and then discharged to home. TOTAL SEDATION TIME: 40 minutes. TOTAL FLUORO TIME: 8.41 minutes. TOTAL AIR KERMA: 759 mGy. TOTAL CONTRAST VOLUME: 25 mL. HEMODYNAMICS: RA 3. RV 31/0, 6. PA 31/4, mean 14. Pulmonary capillary wedge pressure 6. AO 138/62, mean 87. Cardiac output 5.11, cardiac index 2.33. PA sat 67%. AO sat 96%. CORONARY ANGIOGRAPHY: This is a right dominant circulation. 1. Left main: This arises from left coronary cusp. It bifurcates into left anterior descending and circumflex vessels. The left main has diffuse 70% calcific stenosis. 2. Left anterior descending: This is occluded at its ostium. The mid to distal LAD is seen filling via patent MARROQUIN graft. There is evidence of moderate diffuse disease in the mid to distal LAD, reaching up to 50% in diameter stenosis. 3. Circumflex vessel: This is nondominant. It gives rise to a large first obtuse marginal branch, which has diffuse 90% stenosis. The distal obtuse marginal branch is also seen filling via a patent radial graft. The circumflex after that has evidence of 60% diffuse stenosis in the mid segment. The distal branches of the circumflex are of small caliber. 4. Right coronary artery: This arises from the right coronary cusp. It is a large and dominant vessel. It is 100% occluded in its proximal segment. The distal vessel is seen filling via a patent saphenous venous graft to the PDA branch, which fills the PDA and the PLV retrogradely. Bypass graft angiography. 1. (more content not included)... Normal [facility] CBC AUTO DIFFon 04-01-2022 BASO # 0.0 103/ul Normal 0.0-0.1 [facility] Comment on above: Performed By: #### H PYLLC #### [facility] [address] [place] [address] [address] Jose Gonsales Basophils/100 WBC (Bld) 0.2 % Normal 0.2-2.0 [facility] Comment on above: Performed By: #### H PYLLC #### [facility] [address] [place] [address] [address] Jose Gonsales EO # 0.1 103/ul Normal 0.0-0.7 [facility] Comment on above: Performed By: #### H PYLLC #### [facility] [address] [place] [address] [address] Jose Gonsales Eosinophils/100 WBC (Bld) 2.2 % Normal 0.9-7.0 [facility] Comment on above: Performed By: #### H PYLLC #### [facility] [address] [place] [address] [address] Jose Gonsales Erythrocyte distribution width (RBC) [Ratio] 12.8 % Normal 11.0-15.0 [facility] Comment on above: Performed By: #### H PYLLC #### [facility] [address] [place] [address] [address] Jose Gonsales Hematocrit (Bld) [Volume fraction] 44.5 % Normal 42.0-54.0 [facility] Comment on above: Performed By: #### H PYLLC #### [facility] [address] [place] [address] [address] Jose Gonsales Hemoglobin (Bld) [Mass/Vol] 14.5 g/dL Normal 14.0-18.0 [facility] Comment on above: Performed By: #### H PYLLC #### [facility] [address] [place] [address] [address] Jose Gonsales IG # 0.01 10e3/ul Normal 0.00-0.03 [facility] Comment on above: Performed By: #### H PYLLC #### [facility] [address] [place] [address] Dr. Jose Gonsales IG % 0.2 % Normal 0.0-0.5 [facility] Comment on above: Performed By: #### H PYLLC #### [facility] [address] [place] [address] Dr. Jose Gonsales LYMPH # 1.8 103/ul Normal 1.2-3.8 [facility] Comment on above: Performed By: #### H PYLLC #### [facility] [address] [place] [address] Dr. Jose Gonsales Lymphocytes/100 WBC (Bld) 31.8 % Normal 20.5-60.0 [facility] Comment on above: Performed By: #### H PYLLC #### [facility] [address] [place] [address] Dr. Jose Gonsales MANUAL DIFF REQ NO Normal [facility] Comment on above: Performed By: #### H PYLLC #### [facility] [address] [place] [address] [address] Jose Gonsales MCH (RBC) [Entitic mass] 30.6 pg Normal 25.9-34.0 [facility] Comment on above: Performed By: #### H PYLLC #### [facility] [address] [place] [address] Dr. Jose Gonsales MCHC (RBC) [Mass/Vol] 32.6 g/dL Normal 29.9-35.2 [facility] Comment on above: Performed By: #### H PYLLC #### [facility] [address] [place] [address] Dr. Jose Gonsales MCV (RBC) [Entitic vol] 93.9 fL Normal 80.0-94.0 [facility] Comment on above: Performed By: #### H PYLLC #### [facility] [address] [place] [address] [address] Jose Gonsales MONO # 0.5 103/ul Normal 0.3-0.8 [facility] Comment on above: Performed By: #### H PYLLC #### [facility] [address] [place] [address] [address] Jose Gonsales Monocytes/100 WBC (Bld) 8.5 % Normal 1.7-12.0 [facility] Comment on above: Performed By: #### H PYLLC #### [facility] [address] [place] [address] Dr. Jose Gonsales NEUT # 3.3 103/ul Normal 1.4-6.5 [facility] Comment on above: Performed By: #### H PYLLC #### [facility] [address] [place] [address] Dr. Jose Gonsales Neutrophils/100 WBC (Bld) 57.1 % Normal 43.0-75.0 [facility] Comment on above: Performed By: #### H PYLLC #### [facility] [address] [place] [address] Dr. Jose Gonsales Platelet mean volume (Bld) [Entitic vol] 10.1 fL Normal 9.5-13.5 [facility] Comment on above: Performed By: #### H PYLLC #### [facility] [address] [place] [address] Dr. Jose Gonsales PLT 150 103/ul Normal 150-450 [facility] Comment on above: Performed By: #### H PYLLC #### [facility] [address] [place] [address] Dr. Jose Gonsales RBC 4.74 106/ul Normal 4.70-6.10 [facility] Comment on above: Performed By: #### H PYLLC #### [facility] [address] [place] [address] Dr. Jose Gonsales WBC 5.8 103/ul Normal 4.0-11.0 [facility] Comment on above: Performed By: #### H PYLLC #### [facility] [address] [address] [address] Jose Gonsales Covid-19 PCR ([facility])on SARS-CoV-2 (COVID-19) RNA JORDON+probe Ql (Unsp spec) Not detected Normal NOT DETECTED [facility] Comment on above: Result Comment: This test is not yet approved or cleared by the [place] FDA. When there are no FDA-approved or cleared tests available, and other criteria are met, FDA can make tests available under an emergency access mechanism called an Emergency Use Authorization (EUA). The EUA for this test is supported by the [place] of Health and Human Service's (HHS's) declaration that circumstances exist to justify the emergency use of in vitro diagnostics for the detection and/or diagnosis of the virus that causes COVID-19. This EUA will remain in effect (meaning this test can be used) for the duration of the COVID-19 declaration justifying emergency of IVDs, unless it is terminated or revoked by FDA (after which the test may no longer be used). When diagnostic testing is negative, the possibility of a false negative should be considered in the context of a patient's recent exposures and the presence of clinical signs and symptoms consistent with SARS-CoV-2. Performed By: #### C VDTBH ####[facility] [id number] [address]Dr. Jose Gonsales PROF CHEM 8 (BAS METB)on Anion gap [Moles/Vol] 14.0 mmol/L Normal [facility] Comment on above: Performed By: #### P TTHEP #### [facility] [id number] Jose Gonsales Calcium [Mass/Vol] 9.3 mg/dL Normal 8.5-10.1 [facility] Comment on above: Performed By: #### P TTHEP #### [facility] [address] [address] [address] Jose Gonsales Chloride [Moles/Vol] 106 mmol/L Normal 98-107 [facility] Comment on above: Performed By: #### P TTHEP #### [facility] [address] [place] [address] Dr. Jose Gonsales CO2 [Moles/Vol] 22.7 mmol/L Normal 21.0-32.0 [facility] Comment on above: Performed By: #### P TTHEP #### [facility] [address] [place] [address] Dr. Jose Gonsales Creatinine [Mass/Vol] 2.22 mg/dL Critically high 0.70-1.30 [facility] Comment on above: Performed By: #### P TTHEP #### [facility] [address] [place] [address] Dr. Jose Gonsales EGFR-AF MOZAMBICAN 36 mL/min/1.73m2 Critically low >=60 [facility] Comment on above: Performed By: #### P TTHEP #### [facility] [address] [place] [address] Dr. Jose Gonsales EGFR-NON AF MOZAMBICAN 30 mL/min/1.73m2 Critically low >=60 [facility] Comment on above: Performed By: #### P TTHEP #### [facility] [address] [place] [address] Dr. Jose Gonsales Glucose [Mass/Vol] 121 mg/dL Critically high 74-106 [facility] Comment on above: Performed By: #### P TTHEP #### [facility] [address] [place] [address] Dr. Jose Gonsales Potassium [Moles/Vol] 4.7 mmol/L Normal 3.5-5.1 [facility] Comment on above: Performed By: #### P TTHEP #### [facility] [address] [place] [address] Dr. Jose Gonsales Sodium [Moles/Vol] 138 mmol/L Normal 136-145 [facility] Comment on above: Performed By: #### P TTHEP #### [facility] [address] [place] [address] Dr. Jose Gonsales Urea nitrogen [Mass/Vol] 38.0 mg/dL Critically high 7.0-18.0 [facility] Comment on above: Performed By: #### P TTHEP #### [facility] [address] [address] [address] Jose Gonsales Urea nitrogen/Creatini ne [Mass ratio] 17.1 mg/mg Normal [facility] Comment on above: Performed By: #### P TTHEP #### [facility] [address] [address] [address] Jose Gonsales NM STRESS/REST MULTIon 03-21 NM STRESS/REST MULTI Patient: PARISH CONTRERAS Exam Date: 03/21/2022 : 1955 Gender:M Ordering : DR ELENO OJHNSON M.D. Admission #: [id number] Family : DR JONAS MURILLO . Order #: [id number] CLICK HERE TO VIEW EXAM RADIOLOGY REPORT PROCEDURE: RADIONUCLIDE IMAGING STRESS/REST MULTI COMPARISON: None. INDICATIONS: Dyspnea on exertion TECHNIQUE: Exam Description: Stress/Rest two day protocol gated SPECT Rest Imagin.0 mCi Tc-99m Cardiolite IV on 03/21/2022 Stress Imaging 25.2 mCi Tc-99m Cardiolite IV on 03/21/2022 Exercise Protocol: 0.4 mg Lexiscan given IV Heart Rate (bpm): Rest: 45 Max: 83 PMHR: 54 Blood Pressure: Rest: 146/78 Max: 172/90 Symptoms: Rest and peak stress ECG findings were normal and the exercise portion of the study was normal per attending physician Dr. Johnson . For more details please see separate cardiac stress test report. FINDINGS: QUALITY OF STUDY: Good. PERFUSION DEFECT: LOCATION: Mid-anterior. Apical anterior. [place]. SIZE: Medium (3-4 segments). SEVERITY: Severe. TYPE: Mixed. WALL MOTION: Severe hypokinesis: Mid-anterior. Apical anterior. [place]. LV SIZE: Enlarged; EDV 157 mL. TID / TCD: None; 0.9 LVEF: Normal. Calculated EF 57%. SUMMARY: Myocardial perfusion imaging study has ABNORMAL findings. CONCLUSION: 1. Large area of transmural decreased uptake in the anterior wall extending to the apex, LAD distribution on stress images demonstrating a small amount of redistribution on rest imaging 2. 3. Dilated left ventricle, end-diastolic volume 157 milliliters 4. Normal exercise test Dictated by: Brian Pate MD on 03/22/2022 at 07:06 Approved by: Brian Pate MD on 03/22/2022 at 07:09 Normal [facility] DIGOXINon 01-03-2022 DIG 1.1 ng/mL Normal 0.8-2.0 [facility] Comment on above: Performed By: #### P TTHEP #### [facility] [address] [place] [address] Dr. Jose Gonsales DIGOXINon 12-24-2021 DIG 1.1 ng/mL Normal 0.8-2.0 [facility] Comment on above: Performed By: #### P TTHEP #### [facility] [address] [place] [address] Dr. Jose Gonsales BNPon 12-22-2021 Natriuretic peptide B (Bld) [Mass/Vol] 353.0 pg/mL Normal <=900.0 [facility] Comment on above: Performed By: #### P T #### [facility] [address] [place] [address] Dr. Jose Gonsales CARDIAC CHESTER ADMITon 022 CK [Catalytic activity/Vol] 122 U/L Normal 55-170 [facility] Comment on above: Performed By: #### P T #### [facility] [address] [place] [address] Dr. Jose Gonsales CK.MB [Mass/Vol] 0.94 ng/mL Normal <=2.37 [facility] Comment on above: Performed By: #### P T #### [facility] [address] [place] [address] Dr. Jose Gonsales HSTROP 208.6 pg/mL Critically high 4.0-42.2 [facility] Comment on above: Result Comment: CUT- OFF POINTS HAVE BEEN ESTABLISHED BASED ON THE FOURTH UNIVERSAL DEFINITIONS OF MYOCARDIAL INFARCTION. THE UPPER REFERENCE LIMIT (URL) OF TROPONIN, DEFINED THE 99TH PERCENTILE OF cTnI DISTRIBUTION IN A REFERENCE POPULATION, HAS BEEN CONFIRMED THE DECISION THRESHOLD FOR MA DIAGNOSIS. Performed By: #### P T #### [facility] [address] [place] [address] Dr. Jose Gonsales BLANCA 96.0 ng/mL Normal <=121.0 [facility] Comment on above: Performed By: #### P T #### [facility] [address] [place] [address] Dr. Jose Gonsales CBC AUTO DIFFon 12-22-2021 BASO # 0.0 103/ul Normal 0.0-0.1 [facility] Comment on above: Performed By: #### H PYLLC #### [facility] [address] [place] [address] Dr. Jose Gonsales Basophils/100 WBC (Bld) 0.3 % Normal 0.2-2.0 [facility] Comment on above: Performed By: #### H PYLLC #### [facility] [address] [place] [address] Dr. Jose Gonsales EO # 0.1 103/ul Normal 0.0-0.7 [facility] Comment on above: Performed By: #### H PYLLC #### [facility] [address] [place] [address] Dr. Jose Gonsales Eosinophils/100 WBC (Bld) 1.9 % Normal 0.9-7.0 [facility] Comment on above: Performed By: #### H PYLLC #### [facility] [address] [place] [address] Dr. Jose Gonsales Erythrocyte distribution width (RBC) [Ratio] 12.9 % Normal 11.0-15.0 [facility] Comment on above: Performed By: #### H PYLLC #### [facility] [address] [place] [address] Dr. Jose Gonsales Hematocrit (Bld) [Volume fraction] 45.6 % Normal 42.0-54.0 [facility] Comment on above: Performed By: #### H PYLLC #### [facility] [address] [place] [address] Dr. Jose Gonsales Hemoglobin (Bld) [Mass/Vol] 15.1 g/dL Normal 14.0-18.0 [facility] Comment on above: Performed By: #### H PYLLC #### [facility] [address] [address] [address] Jose Gonsales IG # 0.02 10e3/ul Normal 0.00-0.03 [facility] Comment on above: Performed By: #### H PYLLC #### [facility] [address] [address] [address] Jose Gonsales IG % 0.3 % Normal 0.0-0.5 [facility] Comment on above: Performed By: #### H PYLLC #### [facility] [address] [address] [address] Jose Gonsales LYMPH # 2.0 103/ul Normal 1.2-3.8 [facility] Comment on above: Performed By: #### H PYLLC #### [facility] [address] [place] [address] Dr. Jose Gonsales Lymphocytes/100 WBC (Bld) 29.5 % Normal 20.5-60.0 [facility] Comment on above: Performed By: #### H PYLLC #### [facility] [address] [address] [address] Jose Gonsales MANUAL DIFF REQ NO Normal [facility] Comment on above: Performed By: #### H PYLLC #### [facility] [address] [place] [address] Dr. Jose Gonsales MCH (RBC) [Entitic mass] 31.1 pg Normal 25.9-34.0 [facility] Comment on above: Performed By: #### H PYLLC #### [facility] [address] [address] [address] Jose Gonsales MCHC (RBC) [Mass/Vol] 33.1 g/dL Normal 29.9-35.2 [facility] Comment on above: Performed By: #### H PYLLC #### [facility] [address] [address] [address] Jose Gonsales MCV (RBC) [Entitic vol] 94.0 fL Normal 80.0-94.0 [facility] Comment on above: Performed By: #### H PYLLC #### [facility] [address] [address] [address] Jose Gonsales MONO # 0.7 103/ul Normal 0.3-0.8 [facility] Comment on above: Performed By: #### H PYLLC #### [facility] [address] [address] [address] Jose Gonsales Monocytes/100 WBC (Bld) 10.4 % Normal 1.7-12.0 [facility] Comment on above: Performed By: #### H PYLLC #### [facility] [address] [address] [address] Jose Gonsales NEUT # 3.9 103/ul Normal 1.4-6.5 [facility] Comment on above: Performed By: #### H PYLLC #### [facility] [address] [place] [address] Dr. Jose Gonsales Neutrophils/100 WBC (Bld) 57.6 % Normal 43.0-75.0 [facility] Comment on above: Performed By: #### H PYLLC #### [facility] [address] [place] [address] Dr. Jose Gonsales Platelet mean volume (Bld) [Entitic vol] 10.1 fL Normal 9.5-13.5 [facility] Comment on above: Performed By: #### H PYLLC #### [facility] [address] [address] [address] Jose Gonsales PLT 147 103/ul Critically low 150-450 [facility] Comment on above: Performed By: #### H PYLLC #### [facility] [address] [place] [address] Dr. Jose Gonsales RBC 4.85 106/ul Normal 4.70-6.10 [facility] Comment on above: Performed By: #### H PYLLC #### [facility] [address] [address] [address] Jose Gonsales WBC 6.7 103/ul Normal 4.0-11.0 [facility] Comment on above: Performed By: #### H PYLLC #### [facility] [address] [place] [address] Dr. Jose Gonsales DIGOXINon 12-22-2021 DIG 0.9 ng/mL Normal 0.8-2.0 [facility] Comment on above: Performed By: #### H PYLLC #### [facility] [address] [place] [address] Dr. Jose Gonsales POINT OF CARE GLUCOSEon 11-25 Glucose [Mass/Vol] 152 mg/dL Critically high 74-106 [facility] Comment on above: Performed By: #### H PYLLC #### [facility] [address] [place] [address] Dr. Jose Gonsales PROF 14(COMP METB)on 022 Albumin [Mass/Vol] 3.5 g/dL Normal 3.4-5.0 [facility] Comment on above: Performed By: #### P T #### [facility] [address] [place] [address] Dr. Jose Gonsales Albumin/Globulin [Mass ratio] 0.9 {ratio} Normal [facility] Comment on above: Performed By: #### P T #### [facility] [address] [place] [address] Dr. Jose Gonsales ALP [Catalytic activity/Vol] 57 U/L Normal 46-116 [facility] Comment on above: Performed By: #### P T #### [facility] [address] [place] [address] Dr. Jose Gonsales ALT [Catalytic activity/Vol] 35 U/L Normal 16-63 [facility] Comment on above: Performed By: #### P T #### [facility] [address] [place] [address] Dr. Jose Gonsales Anion gap [Moles/Vol] 14.2 mmol/L Normal [facility] Comment on above: Performed By: #### P T #### [facility] [address] [place] [address] Dr. Jose Gonsales AST [Catalytic activity/Vol] 24 U/L Normal 15-37 [facility] Comment on above: Performed By: #### P T #### [facility] [address] [address] [address] Jose Gonsales Bilirubin [Mass/Vol] 0.4 mg/dL Normal 0.2-1.3 [facility] Comment on above: Performed By: #### P T #### [facility] [address] [address] [address] Jose Gonsales Calcium [Mass/Vol] 9.1 mg/dL Normal 8.5-10.1 [facility] Comment on above: Performed By: #### P T #### [facility] [address] [address] [address] Jose Gonsales Chloride [Moles/Vol] 103 mmol/L Normal 98-107 [facility] Comment on above: Performed By: #### P T #### [facility] [address] [address] [address] Jose Gonsales CO2 [Moles/Vol] 24.8 mmol/L Normal 22.0-30.0 [facility] Comment on above: Performed By: #### P T #### [facility] [address] [address] [address] Jose Gonsales Creatinine [Mass/Vol] 1.94 mg/dL Critically high 0.66-1.25 [facility] Comment on above: Performed By: #### P T #### [facility] [address] [address] [address] Jose Gonsales EGFR-AF MOZAMBICAN 42 mL/min/1.73m2 Critically low >=60 [facility] Comment on above: Performed By: #### P T #### [facility] [address] [address] [address] Jose Gonsales EGFR-NON AF MOZAMBICAN 35 mL/min/1.73m2 Critically low >=60 [facility] Comment on above: Performed By: #### P T #### [facility] [address] [address] [address] Jose Gonsales Globulin (S) [Mass/Vol] 3.9 g/dL Normal [facility] Comment on above: Performed By: #### P T #### [facility] [address] [address] [address] Jose Gonsales Glucose [Mass/Vol] 125 mg/dL Critically high 74-106 [facility] Comment on above: Performed By: #### P T #### [facility] [address] [address] [address] Jose Gonsales Potassium [Moles/Vol] 5.0 mmol/L Normal 3.4-5.0 [facility] Comment on above: Performed By: #### P T #### [facility] [address] [address] [address] Jose Gonsales Protein [Mass/Vol] 7.4 g/dL Normal 6.1-8.2 [facility] Comment on above: Performed By: #### P T #### [facility] [address] [address] [address] Jose Gonsales Sodium [Moles/Vol] 137 mmol/L Normal 137-145 [facility] Comment on above: Performed By: #### P T #### [facility] [address] [address] [address] Jose Gonsales Urea nitrogen [Mass/Vol] 37.0 mg/dL Critically high 7.0-18.0 [facility] Comment on above: Performed By: #### P T #### [facility] [address] [address] [address] Jose Gonsales Urea nitrogen/Creatini ne [Mass ratio] 19.1 mg/mg Normal [facility] Comment on above: Performed By: #### P T #### [facility] [address] [address] [address] Jose Gonsales PTT HEPARIN MONITORon 2021 aPTT Coag (Bld) [Time] 27.3 s Critically low 39.5-54.2 [facility] Comment on above: Performed By: #### P TTHEP ####[facility] [id number] [address]Dr. Jose Gonsales T3, TOTAL (TRIIODOTHYRONINE) on 12-22-2021 T3, TOTAL 95 ng/dL Normal 71-180 [facility] Comment on above: Performed By: #### P T #### [facility] [address] [address] [address] Jose Gonsales BNPon 12-21-2021 Natriuretic peptide B (Bld) [Mass/Vol] 781.0 pg/mL Normal <=900.0 [facility] Comment on above: Performed By: #### B BENCH PATTERNMAKER METAL, CMP ####[facility] [id number] [address]Dr. Jose Gonsales CARDIAC CHESTER 3-6on 2 CK [Catalytic activity/Vol] 331 U/L Critically high 55-170 [facility] Comment on above: Result Comment: test repeated Performed By: #### P T #### [facility] [address] [place] [address] Dr. Jose Gonsales CK.MB [Mass/Vol] 2.24 ng/mL Normal <=2.37 [facility] Comment on above: Performed By: #### P T #### [facility] [address] [place] [address] Dr. Jose Gonsales HSTROP 430.1 pg/mL Critically high 4.0-42.2 [facility] Comment on above: Result Comment: CUT- OFF POINTS HAVE BEEN ESTABLISHED BASED ON THE FOURTH UNIVERSAL DEFINITIONS OF MYOCARDIAL INFARCTION. THE UPPER REFERENCE LIMIT (URL) OF TROPONIN, DEFINED THE 99TH PERCENTILE OF cTnI DISTRIBUTION IN A REFERENCE POPULATION, HAS BEEN CONFIRMED THE DECISION THRESHOLD FOR MA DIAGNOSIS. test repeated Performed By: #### P T #### [facility] [address] [address] [address] Jose Gonsales CK [Catalytic activity/Vol] 320 U/L Critically high 55-170 [facility] Comment on above: Result Comment: test repeated Performed By: #### P T #### [facility] [address] [place] [address] Dr. Jose Gonsales CK.MB [Mass/Vol] 2.32 ng/mL Normal <=2.37 [facility] Comment on above: Performed By: #### P T #### [facility] [address] [place] [address] Dr. Yilan Gonsales HSTROP 666.8 pg/mL Critically high 4.0-42.2 [facility] Comment on above: Result Comment: CUT- OFF POINTS HAVE BEEN ESTABLISHED BASED ON THE FOURTH UNIVERSAL DEFINITIONS OF MYOCARDIAL INFARCTION. THE UPPER REFERENCE LIMIT (URL) OF TROPONIN, DEFINED THE 99TH PERCENTILE OF cTnI DISTRIBUTION IN A REFERENCE POPULATION, HAS BEEN CONFIRMED THE DECISION THRESHOLD FOR MA DIAGNOSIS. test repeated Performed By: #### P T #### [facility] [address] [place] [address] Dr. Jose Gonsales CBC AUTO DIFFon 12-21-2021 BASO # 0.0 103/ul Normal 0.0-0.1 [facility] Comment on above: Performed By: #### C BC #### [facility] [address] [place] [address] Dr. Jose Gonsales Basophils/100 WBC (Bld) 0.1 % Critically low 0.2-2.0 [facility] Comment on above: Performed By: #### C BC #### [facility] [address] [place] [address] Dr. Jose Gonsales EO # 0.0 103/ul Normal 0.0-0.7 [facility] Comment on above: Performed By: #### C BC #### [facility] [address] [place] [address] Dr. Jose Gonsales Eosinophils/100 WBC (Bld) 0.1 % Critically low 0.9-7.0 [facility] Comment on above: Performed By: #### C BC #### [facility] [address] [place] [address] Dr. Jose Gonsales Erythrocyte distribution width (RBC) [Ratio] 12.9 % Normal 11.0-15.0 [facility] Comment on above: Performed By: #### C BC #### [facility] [address] [place] [address] Dr. Jose Gonsales Hematocrit (Bld) [Volume fraction] 43.4 % Normal 42.0-54.0 [facility] Comment on above: Performed By: #### C BC #### [facility] [address] [place] [address] Dr. Jose Gonsales Hemoglobin (Bld) [Mass/Vol] 14.7 g/dL Normal 14.0-18.0 [facility] Comment on above: Performed By: #### C BC #### [facility] [address] [place] [address] Dr. Jose Gonsales IG # 0.03 10e3/ul Normal 0.00-0.03 [facility] Comment on above: Performed By: #### C BC #### [facility] [address] [place] [address] Dr. Jose Gonsales IG % 0.4 % Normal 0.0-0.5 [facility] Comment on above: Performed By: #### C BC #### [facility] [address] [place] [address] Dr. Jose Gonsales LYMPH # 0.9 103/ul Critically low 1.2-3.8 [facility] Comment on above: Performed By: #### C BC #### [facility] [address] [place] [address] Dr. Jose Gonsales Lymphocytes/100 WBC (Bld) 13.9 % Critically low 20.5-60.0 [facility] Comment on above: Performed By: #### C BC #### [facility] [address] [place] [address] Dr. Jose Gonsales MANUAL DIFF REQ NO Normal [facility] Comment on above: Performed By: #### C BC #### [facility] [address] [place] [address] Dr. Jose Gonsales MCH (RBC) [Entitic mass] 31.1 pg Normal 25.9-34.0 [facility] Comment on above: Performed By: #### C BC #### [facility] [address] [place] [address] Dr. Jose Gonsales MCHC (RBC) [Mass/Vol] 33.9 g/dL Normal 29.9-35.2 [facility] Comment on above: Performed By: #### C BC #### [facility] [address] [place] [address] Dr. Jose Gonsales MCV (RBC) [Entitic vol] 91.8 fL Normal 80.0-94.0 [facility] Comment on above: Performed By: #### C BC #### [facility] [address] [place] [address] Dr. Jose Gonsales MONO # 0.5 103/ul Normal 0.3-0.8 [facility] Comment on above: Performed By: #### C BC #### [facility] [address] [place] [address] Dr. Jose Gonsales Monocytes/100 WBC (Bld) 7.0 % Normal 1.7-12.0 [facility] Comment on above: Performed By: #### C BC #### [facility] [address] [place] [address] Dr. Jose Gonsales NEUT # 5.3 103/ul Normal 1.4-6.5 [facility] Comment on above: Performed By: #### C BC #### [facility] [address] [place] [address] Dr. Jose Gonsales Neutrophils/100 WBC (Bld) 78.5 % Critically high 43.0-75.0 [facility] Comment on above: Performed By: #### C BC #### [facility] [address] [place] [address] Dr. Jose Gonsales Platelet mean volume (Bld) [Entitic vol] 10.1 fL Normal 9.5-13.5 [facility] Comment on above: Performed By: #### C BC #### [facility] [address] [place] [address] Dr. Jose Gonsales PLT 129 103/ul Critically low 150-450 [facility] Comment on above: Performed By: #### C BC #### [facility] [address] [place] [address] Dr. Jose Gonsales RBC 4.73 106/ul Normal 4.70-6.10 [facility] Comment on above: Performed By: #### C BC #### [facility] [address] [place] [address] Dr. Jose Gonsales WBC 6.8 103/ul Normal 4.0-11.0 [facility] Comment on above: Performed By: #### C #### [facility] [address] [address] [address] Jose Gonsales ECHOCARDIO M/2D COMPLETEon 0 12-21-2021 ECHOCARDIO M/2D COMPLETE Patient: PARISH CONTRERAS Exam Date: 12/21/2021 : 1955 Gender:M Ordering : DR JONAS MURILLO . Admission #: [id number] Family : Order #: [id number] CLICK HERE TO VIEW EXAM ECHOCARDIOGRAM REPORT PROCEDURE: CARDIO PULMONARY ECHOCARDIO M/2D COMP INDICATIONS: Elevated Troponin, syncope, atrial flutter, hypertension, h/o CABG x 5, HIV+ COMPARISON: None. DESCRIPTION: COMPLETE ECHOCARDIOGRAM Real-time transthoracic echocardiography with 2D, M-mode, spectral and color flow Doppler performed. QUALITY: Technical quality was good. LEFT VENTRICLE: Normal chamber size. Borderline left ventricular hypertrophy. Global hypokinesis. Visual estimation of left ventricular systolic function is 40%. LV EF: Mildly to moderately reduced left ventricular ejection fraction, (35-40%). DIASTOLIC: Not adequately assessed due to heart rhythm. ATRIAL SEPTUM: LEFT ATRIUM: Normal chamber size. RIGHT ATRIUM: Mild dilatation. RIGHT VENTRICLE: Normal chamber size. TRICUSPID VALVE: Normal mobility and thickness. No stenosis with trivial regurgitation. No evidence of pulmonary hypertension. RVSP 22 mmHg MITRAL VALVE: Normal mobility and thickness. No evidence of mitral valve stenosis. There is no mitral annular calcification. Mild mitral regurgitation. AORTIC VALVE: Normal trileaflet appearance. Normal leaflet mobility. No evidence of aortic valve stenosis. Multifocal calcification. No aortic regurgitation. AORTIC ROOT: Normal diameter and appearance. Ascending aorta is normal in size. PULMONIC VALVE: Normal thickness and mobility. No stenosis. Mild regurgitation. PERICARDIUM: No evidence of pericardial effusion. IVC: Collapses with inspirations. IVC is normal in size. PLEURA: CONCLUSION: 1. Left ventricular systolic function is mildly to moderately reduced with global hypokinesis. LVEF is 40%. 2. Normal right ventricular systolic function. 3. Mild mitral regurgitation. 4. Normal right-sided pressures. 5. Patient appears to be in atrial flutter. Adult Echocardiography Procedure Report Left Ventricle LVEDD (3.7 - 5.6 cm): 4.86 cm LVESD (2.2 - 4.0 cm): 3.78 cm LVIVS thickness (0.6 - 1.2 cm): 1.15 cm LVPW thickness (0.5 - 1.0 cm): 1.03 cm LVOT Area (cm2): 4.91 cm2 LVOT Diameter 2.50 cm Left Ventricular Ejection Fraction: 40 % Left Atrium LA Volume Index (2D A2C): 33.30 ml/m2 Left Atrium Systolic Dimension: 4.20 cm Left Atrium Systolic Area(A2C): 24.00 cm2 Left Atrium Systolic Area(A4C): 17.90 cm2 Left Atrium Systolic Volume(A2C): 33329 mm3 Left Atrium Systolic Volume(A4C): 42067 mm3 Mitral Valve Mitral Valve E-Wave Peak Velocity: 80.90 cm/s Mitral Valve E-Wave Peak Velocity: 99.20 cm/s Right Ventricle Aorta AO Root Diam: 3.40 cm Aortic Valve AoV Area (Peak Kwadwo): 3.17 cm2 Peak Velocity(Antegrade Flow): 124.00 cm/s Peak Gradient(Antegrade Flow): 6 mm[Hg] Tricuspid Valve Pulmonic Valve Peak Velocity: 81.40 cm/s Peak Gradient: 3 mm[Hg] Right Atrium Dictated by: Eleno Johnson M.D. on 12/21/2021 at 13:00 Approved by: Eleno Johnson M.D. on 12/21/2021 at 13:03 Normal [facility] POINT OF CARE GLUCOSEon 11-24 Glucose [Mass/Vol] 169 mg/dL Critically high 74-106 [facility] Comment on above: Performed By: #### P TTHEP #### [facility] [address] [place] [address] Dr. Jose Gonsales Glucose [Mass/Vol] 128 mg/dL Critically high 74-106 [facility] Comment on above: Performed By: #### P T #### [facility] [address] [address] [address] Jose Gonsales Glucose [Mass/Vol] 151 mg/dL Critically high 74-106 [facility] Comment on above: Performed By: #### P T #### [facility] [address] [address] [address] Jose Gonsales Glucose [Mass/Vol] 136 mg/dL Critically high 74-106 [facility] Comment on above: Performed By: #### P TTHEP #### [facility] [address] [place] [address] Dr. Jose Gonsales PROF 14(COMP METB)on 022 Albumin [Mass/Vol] 3.3 g/dL Critically low 3.4-5.0 [facility] Comment on above: Performed By: #### B BENCH PATTERNMAKER METAL, CMP #### [facility] [address] [place] [address] Dr. Jose Gonsales Albumin/Globulin [Mass ratio] 0.9 {ratio} Normal [facility] Comment on above: Performed By: #### B BENCH PATTERNMAKER METAL, CMP #### [facility] [address] [place] [address] Dr. Jose Gonsales ALP [Catalytic activity/Vol] 53 U/L Normal 46-116 [facility] Comment on above: Performed By: #### B BENCH PATTERNMAKER METAL, CMP #### [facility] [address] [place] [address] Dr. Jose Gonsales ALT [Catalytic activity/Vol] 22 U/L Normal 16-63 [facility] Comment on above: Performed By: #### B BENCH PATTERNMAKER METAL, CMP #### [facility] [address] [place] [address] Dr. Jose Gonsales Anion gap [Moles/Vol] 12.8 mmol/L Normal [facility] Comment on above: Performed By: #### B BENCH PATTERNMAKER METAL, CMP #### [facility] [address] [place] [address] Dr. Jose Gonsales AST [Catalytic activity/Vol] 21 U/L Normal 15-37 [facility] Comment on above: Performed By: #### B BENCH PATTERNMAKER METAL, CMP #### [facility] [address] [place] [address] Dr. Jose Gonsales Bilirubin [Mass/Vol] 0.5 mg/dL Normal 0.2-1.3 [facility] Comment on above: Performed By: #### B BENCH PATTERNMAKER METAL, CMP #### [facility] [address] [place] [address] Dr. Jose Gonsales Calcium [Mass/Vol] 8.7 mg/dL Normal 8.5-10.1 [facility] Comment on above: Performed By: #### B BENCH PATTERNMAKER METAL, CMP #### [facility] [address] [place] [address] Dr. Jose Gonsales Chloride [Moles/Vol] 104 mmol/L Normal 98-107 [facility] Comment on above: Performed By: #### B BENCH PATTERNMAKER METAL, CMP #### [facility] [address] [place] [address] Dr. Jose Gonsales CO2 [Moles/Vol] 25.8 mmol/L Normal 22.0-30.0 [facility] Comment on above: Performed By: #### B BENCH PATTERNMAKER METAL, CMP #### [facility] [address] [place] [address] Dr. Jose Gonsales Creatinine [Mass/Vol] 2.02 mg/dL Critically high 0.66-1.25 [facility] Comment on above: Performed By: #### B BENCH PATTERNMAKER METAL, CMP #### [facility] [address] [place] [address] Dr. Jose Gonsales EGFR-AF MOZAMBICAN 40 mL/min/1.73m2 Critically low >=60 [facility] Comment on above: Performed By: #### B BENCH PATTERNMAKER METAL, CMP #### [facility] [address] [place] [address] Dr. Jose Gonsales EGFR-NON AF MOZAMBICAN 33 mL/min/1.73m2 Critically low >=60 [facility] Comment on above: Performed By: #### B BENCH PATTERNMAKER METAL, CMP #### [facility] [address] [place] [address] Dr. Jose Gonsales Globulin (S) [Mass/Vol] 3.6 g/dL Normal [facility] Comment on above: Performed By: #### B BENCH PATTERNMAKER METAL, CMP #### [facility] [address] [place] [address] Dr. Jose Gonsales Glucose [Mass/Vol] 170 mg/dL Critically high 74-106 [facility] Comment on above: Performed By: #### B BENCH PATTERNMAKER METAL, CMP #### [facility] [address] [place] [address] Dr. Jose Gonsales Potassium [Moles/Vol] 4.6 mmol/L Normal 3.4-5.0 [facility] Comment on above: Performed By: #### B BENCH PATTERNMAKER METAL, CMP #### [facility] [address] [place] [address] Dr. Jose Gonsales Protein [Mass/Vol] 6.9 g/dL Normal 6.1-8.2 [facility] Comment on above: Performed By: #### B BENCH PATTERNMAKER METAL, CMP #### [facility] [address] [place] [address] Dr. Jose Gonsales Sodium [Moles/Vol] 138 mmol/L Normal 137-145 [facility] Comment on above: Performed By: #### B BENCH PATTERNMAKER METAL, CMP #### [facility] [address] [place] [address] Dr. Jose Gonsales Urea nitrogen [Mass/Vol] 40.0 mg/dL Critically high 7.0-18.0 [facility] Comment on above: Performed By: #### B BENCH PATTERNMAKER METAL, CMP #### [facility] [address] [place] [address] Dr. Jose Gonsales Urea nitrogen/Creatini ne [Mass ratio] 19.8 mg/mg Normal [facility] Comment on above: Performed By: #### B BENCH PATTERNMAKER METAL, CMP #### [facility] [address] [place] [address] Dr. Jose Gonsales PROTIMEon 12-21-2021 INR Coag (PPP) [Relative time] 1.08 {INR} Normal [facility] Comment on above: Performed By: #### P T #### [facility] [address] [place] [address] Dr. Jose Gonsales INR GUIDELINES SEE BELOW Normal [facility] Comment on above: Result Comment: GRANT RED INR: 2.0 - 3.0 CONDITIONS NOT LISTED BELOW 2.5 - 3.5 FOR PROSTHETIC HEART VALVE REPLACEMENT 2.5 - 3.5 RECURRENT THROMBOSIS Performed By: #### P T #### [facility] [address] [place] [address] Dr. Jose Gonsales PT Coag (PPP) [Time] 11.6 s Normal 9.0-11.6 [facility] Comment on above: Performed By: #### P T #### [facility] [address] [place] [address] Dr. Jose Gonsales PTT HEPARIN MONITORon 2021 aPTT Coag (Bld) [Time] 55.6 s Critically high 39.5-54.2 [facility] Comment on above: Result Comment: test repeated Performed By: #### H PYLLC #### [facility] [address] [place] [address] Dr. Jose Gonsales aPTT Coag (Bld) [Time] 25.6 s Critically low 39.5-54.2 [facility] Comment on above: Performed By: #### P TTHEP #### [facility] [address] [place] [address] Dr. Jose Gonsales T4on 12-21-2021 T4 [Mass/Vol] 6.40 ug/dL Normal 5.53-11.00 [facility] Comment on above: Performed By: #### H PYLLC #### [facility] [address] [place] [address] Dr. Jose Gonsales TSHon 12-21-2021 TSH 0.660 uIU/mL Normal 0.470-4.680 [facility] Comment on above: Performed By: #### H PYLLC #### [facility] [address] [place] [address] Dr. Jose Gonsales TSH RANGE SEE BELOW Normal [facility] Comment on above: Result Comment: <0.3 4 UIU/ml HYPERTHYROID 0.34-5.60 UIU/ml EUTHYROID >5.60 UIU/ml HYPOTHYROID Performed By: #### H PYLLC #### [facility] [address] [place] [address] Dr. Jose Gonsales CBC W MANUAL DIFFon 12-21-19 22 ATYPICAL LYMPH # Normal [facility] Comment on above: Performed By: #### C BCMAN #### [facility] [address] [place] [address] Dr. Jose Gonsales ATYPICAL LYMPH % Normal [facility] Comment on above: Performed By: #### C BCMAN #### [facility] [address] [address] [address] Jose Gonsales BAND # 0.1 103/ul Normal 0.0-0.3 [facility] Comment on above: Performed By: #### C BCMAN #### [facility] [address] [place] [address] Dr. Jose Gonsales BAND % 1 % Normal 0-5 [facility] Comment on above: Performed By: #### C BCMAN #### [facility] [address] [place] [address] Dr. Jose Gonsales BASOM # 0.00 103/ul Normal 0.00-0.10 [facility] Comment on above: Performed By: #### C BCMAN #### [facility] [address] [place] [address] Dr. Jose Gonsales BASOM % 0.0 % Critically low 0.2-2.0 [facility] Comment on above: Performed By: #### C BCDANIEL #### [facility] [address] [place] [address] Dr. Jose Gonsales BLAST # Normal [facility] Comment on above: Performed By: #### C BCDANIEL #### [facility] [address] [place] [address] Dr. Jose Gonsales BLAST % Normal [facility] Comment on above: Performed By: #### C CATHIE #### [facility] [address] [place] [address] Dr. Jose Gonsales CORRECTED WBC Normal 4.0-11.0 [facility] Comment on above: Performed By: #### C BCMAN #### [facility] [address] [place] [address] Dr. Jose Gonsales EOS # 0.00 103/ul Normal 0.00-0.70 [facility] Comment on above: Performed By: #### C BCMAN #### [facility] [address] [place] [address] Dr. Jose Gonsales EOS% 0.0 % Critically low 0.9-7.0 [facility] Comment on above: Performed By: #### C CATHIE #### [facility] [address] [address] [address] Jose Gonsales HCT 47.0 % Normal 42.0-54.0 [facility] Comment on above: Performed By: #### C CATHIE #### [facility] [address] [address] [address] Jose Gonsales HGB 15.6 g/dl Normal 14.0-18.0 [facility] Comment on above: Performed By: #### C CATHIE #### [facility] [address] [place] [address] Dr. Jose Gonsales LYMPHM # 0.43 103/ul Critically low 1.20-3.80 [facility] Comment on above: Performed By: #### C CATHIE #### [facility] [address] [place] [address] Dr. Jose Gonsales LYMPHM% 6.0 % Critically low 20.5-60.0 [facility] Comment on above: Performed By: #### C CATHIE #### [facility] [address] [place] [address] Dr. Jose Gonsales MCH 30.8 pg Normal 25.9-34.0 [facility] Comment on above: Performed By: #### C CATHIE #### [facility] [address] [place] [address] Dr. Jose Gonsales MCHC 33.2 g/dl Normal 29.9-35.2 [facility] Comment on above: Performed By: #### C CATHIE #### [facility] [address] [place] [address] Dr. Jose Gonsales MCV 92.9 fL Normal 80.0-94.0 [facility] Comment on above: Performed By: #### C CATHIE #### [facility] [address] [place] [address] Dr. Jose Gonsales METAMYELOCYTE # Normal [facility] Comment on above: Performed By: #### Yesy BRAND #### [facility] [address] [place] [address] Dr. Jose Gonsales METAMYELOCYTE % Normal [facility] Comment on above: Performed By: #### C CATHIE #### [facility] [address] [place] [address] Dr. Jose Gonsales MONOM# 0.29 103/ul Critically low 0.30-0.80 [facility] Comment on above: Performed By: #### C CATHIE #### [facility] [address] [place] [address] Dr. Jose Gonsales MONOM% 4.0 % Normal 1.7-12.0 [facility] Comment on above: Performed By: #### C CATHIE #### [facility] [address] [place] [address] Dr. Jose Gonsales MPV 10.1 fL Normal 9.5-13.5 [facility] Comment on above: Performed By: #### C CATHIE #### [facility] [address] [place] [address] Dr. Jose Gonsales MYELOCYTE # Normal [facility] Comment on above: Performed By: #### C CATHIE #### [facility] [address] [place] [address] Dr. Jose Gonsales MYELOCYTE % Normal [facility] Comment on above: Performed By: #### C CATHIE #### [facility] [address] [place] [address] Dr. Jose Gonsales NRBC Normal [facility] Comment on above: Performed By: #### C CATHIE #### [facility] [address] [place] [address] Dr. Jose Gonsales PLT 139 103/ul Critically low 150-450 [facility] Comment on above: Result Comment: no p lt clumping Performed By: #### C CATHIE #### [facility] [address] [place] [address] Dr. Jose Gonsales RBC 5.06 106/ul Normal 4.70-6.10 [facility] Comment on above: Performed By: #### C CATHIE #### [facility] [address] [place] [address] Dr. Jose Gonsales RDW 13.0 % Normal 11.0-15.0 [facility] Comment on above: Performed By: #### C SOMMERDANIEL #### [facility] [address] [place], [place] [address] Dr. Jose Gonsales SEG # 6.41 103/ul Normal 1.40-6.50 [facility] Comment on above: Performed By: #### C CATHIE #### [facility] [address] [place], [place] [address] Dr. Jose Gonsales SEG % 89.0 % Critically high 43.0-75.0 [facility] Comment on above: Performed By: #### C CATHIE #### [facility] [address] [place], [place] [address] Dr. Jose Gonsales WBC 7.2 103/ul Normal 4.0-11.0 [facility] Comment on above: Performed By: #### C CATHIE #### [facility] [address] [place], [place] [id number] Dr. Jose Gonsales CT HEAD WO CONon 12-20-2021 CT HEAD WO CON EXAMINATION: CT HEAD WO CON, 12/20/2021 6:10 PM EDT HISTORY: Syncope, head injury. COMPARISON: None. TECHNIQUE: CT scan of the head was performed without IV contrast. CT dose reduction technique was used, including Automated Exposure Control. FINDINGS: BRAIN PARENCHYMA/CSF SPACES: Ventricles are normal in size for age. There is no hemorrhage, mass effect or midline shift. Mild low attenuation in the white matter consistent with chronic microvascular ischemia. Mild to moderate atherosclerotic carotid artery calcification. PARANASAL SINUSES: Mild mucosal thickening of the right maxillary sinus and ethmoid air cells consistent with chronic sinusitis. SKULL BASE AND CALVARIUM: Normal. EXTRACRANIAL SOFT TISSUES: Normal. IMPRESSION: 1. No acute intracranial abnormality. 2. Chronic microvascular ischemia and atherosclerotic calcification. 3. Mild chronic sinusitis. Electronically authenticated by: ORAL SMALLS Date: 2021-12-20 19:44 Normal [facility] Covid-19 PCR (CVDTB)on 11-24 SARS-CoV-2 (COVID-19) RNA JORDON+probe Ql (Unsp spec) Not detected Normal NOT DETECTED [facility] Comment on above: Result Comment: When diagnostic testing is negative, the possibility of a false negative should be considered in the context of a patient's recent exposures and the presence of clinical signs and symptoms consistent with SARS-CoV-2. This test is not yet approved or cleared by the [place] Food and Drug Administration (FDA). This test was developed by [employer], [place], [place]. The performance characteristics of this test were validated by [facility]. The results are not intended to be used as the sole means for clinical diagnosis or patient management decisions. [facility] is authorized under Clinical Laboratory Improvement Amendments (CLIA) to perform high- complexity testing. This test is not yet approved or cleared by the [place] FDA. When there are no FDA-approved or cleared tests available, and other criteria are met, FDA can make tests available under an emergency access mechanism called an Emergency Use Authorization (EUA). The EUA for this test is supported by the [employer] of Health and Human Service's declaration that circumstances exist to justify the emergency use of in vitro diagnostics for the detection and/or diagnosis of the virus that causes COVID-19. This EUA will remain in effect for the duration of the COVID-19 declaration justifying emergency of IVDs, unless it is terminated or revoked by the FDA (after which the test may no longer be used). Performed By: #### [facility] #### [facility] [address] [place] [address] Dr. Jose Gonsales INFLUENZA A AND B [facility] 12-20 [facility] SEE BELOW Normal [facility] Comment on above: Result Comment: Nega tive for Flu A protein angiten. Infection due to Flu A cannot be ruled out. Flu A angiten in the sample may be below the detection limit of the test. Performed By: #### P T #### [facility] [address] [place] [address] Dr. [facility] Normal [facility] Comment on above: Result Comment: Nega tive for Flu B protein antigen. Infection due to Flu B cannot be ruled out. Flu B antigen in the sample may be below the detection limit of the test. Performed By: #### P T #### [facility] [address] [address] [address] Jose Gonsales INFLUENZA A AG Negative Normal NEGATIVE SEE COMMENT [facility] Comment on above: Performed By: #### P T #### [facility] [address] [place] [address] Dr. Jose Gonsales INFLUENZA B AG Negative Normal NEGATIVE SEE COMMENT [facility] Comment on above: Performed By: #### P T #### [facility] [address] [place] [address] Dr. Jose Gonsales INTERNAL CONTROLS Within Normal Limits Normal Wi thin Normal Limits [facility] Comment on above: Performed By: #### P T #### [facility] [address] [place] [address] Dr. Jose Gonsales PROF CHEM 8 (BAS METB)on Anion gap [Moles/Vol] 16.9 mmol/L Normal [facility] Comment on above: Performed By: #### H PYLLC #### [facility] [address] [place] [address] Dr. Jose Gonsales Calcium [Mass/Vol] 9.3 mg/dL Normal 8.5-10.1 [facility] Comment on above: Performed By: #### H PYLLC #### [facility] [address] [place] [address] Dr. Jose Gonsales Chloride [Moles/Vol] 102 mmol/L Normal 98-107 [facility] Comment on above: Performed By: #### H PYLLC #### [facility] [address] [place] [address] Dr. Jose Gonsales CO2 [Moles/Vol] 23.0 mmol/L Normal 22.0-30.0 [facility] Comment on above: Performed By: #### H PYLLC #### [facility] Laboratory [address] [place] [address] Dr. Jose Gonsales Creatinine [Mass/Vol] 2.41 mg/dL Critically high 0.66-1.25 [facility] Comment on above: Performed By: #### H PYLLC #### [facility] Laboratory [address] [place] [address] Dr. Jose Gonsales EGFR-AF MOZAMBICAN 33 mL/min/1.73m2 Critically low >=60 [facility] Comment on above: Performed By: #### H PYLLC #### [facility] [address] [address] [address] Jose Gonsales EGFR-NON AF MOZAMBICAN 27 mL/min/1.73m2 Critically low >=60 [facility] Comment on above: Performed By: #### H PYLLC #### [facility] [address] [address] [address] Jose Gonsales Glucose [Mass/Vol] 239 mg/dL Critically high 74-106 [facility] Comment on above: Performed By: #### H PYLLC #### [facility] [address] [address] [address] Jose Gonsales Potassium [Moles/Vol] 4.9 mmol/L Normal 3.4-5.0 [facility] Comment on above: Performed By: #### H PYLLC #### [facility] [address] [address] [address] Jose Gonsales Sodium [Moles/Vol] 137 mmol/L Normal 137-145 [facility] Comment on above: Performed By: #### H PYLLC #### [facility] [address] [address] [address] Jose Gonsales Urea nitrogen [Mass/Vol] 46.0 mg/dL Critically high 7.0-18.0 [facility] Comment on above: Performed By: #### H PYLLC #### [facility] [address] [address] [address] Jose Gonsales Urea nitrogen/Creatini ne [Mass ratio] 19.1 mg/mg Normal [facility] Comment on above: Performed By: #### H PYLLC #### [facility] [address] [address] [address] Jose Gonsales TROPONIN, HIGH SENSITIVITYon 12-20-2021 HSTROP 818.7 pg/mL Critically high 4.0-42.2 [facility] Comment on above: Result Comment: CUT- OFF POINTS HAVE BEEN ESTABLISHED BASED ON THE FOURTH UNIVERSAL DEFINITIONS OF MYOCARDIAL INFARCTION. THE UPPER REFERENCE LIMIT (URL) OF TROPONIN, DEFINED THE 99TH PERCENTILE OF cTnI DISTRIBUTION IN A REFERENCE POPULATION, HAS BEEN CONFIRMED THE DECISION THRESHOLD FOR MA DIAGNOSIS. test repeated Performed By: #### P T #### [facility] [address] [address] [address] Jose Gonsales HSTROP 696.3 pg/mL Critically high 4.0-42.2 [facility] Comment on above: Result Comment: CUT- OFF POINTS HAVE BEEN ESTABLISHED BASED ON THE FOURTH UNIVERSAL DEFINITIONS OF MYOCARDIAL INFARCTION. THE UPPER REFERENCE LIMIT (URL) OF TROPONIN, DEFINED THE 99TH PERCENTILE OF cTnI DISTRIBUTION IN A REFERENCE POPULATION, HAS BEEN CONFIRMED THE DECISION THRESHOLD FOR MA DIAGNOSIS. test repeated Performed By: #### H PYLLC #### [facility] [address] [address] [address] Jose Gonsales XR CHEST 1 Von 12-20-2021 XR CHEST 1 V EXAM: XR CHEST 1 V, 12/20/2021 HISTORY: SHORTNESS OF BREATH COMPARISON: Previous x-ray from 05/24/2021. TECHNIQUE: Portable AP upright view of the chest. FINDINGS: Moderate cardiomegaly. Status post sternotomy. No focal consolidation or pulmonary edema. Low lung volumes. Unremarkable bony structures. No acute cardiopulmonary findings. IMPRESSION: Moderate cardiomegaly. No significant interval change. Electronically authenticated by: MARIANELA HERRING Date: 2021-12-20 20:44 Normal [facility] COMP METABOLIC PANELon 08-31 Albumin [Mass/Vol] 4.4 g/dL Normal 3.5-5.7 [facility] Comment on above: Performed By: #### 0 0121 #### [facility] [address] ALKALINE PHOSPH 65 IU/L Normal 34-104 [facility] Comment on above: Performed By: #### 0 0121 #### [facility] [address] [place], [place] [id number] [place] [address] ALT [Catalytic activity/Vol] 19 U/L Normal 7-52 [facility] Comment on above: Performed By: #### 0 0121 #### [facility] [address] [place] [address], [facility] AST [Catalytic activity/Vol] 18 U/L Normal 13-39 [facility] Comment on above: Performed By: #### 0 0121 #### [facility] [address] [place] [address], [place] Bilirubin [Mass/Vol] 0.5 mg/dL Normal 0.3-1.0 [facility] Comment on above: Performed By: #### 0 0121 #### [facility] [address] [place] [address], [place] Calcium [Mass/Vol] 9.6 mg/dL Normal 8.6-10.3 [facility] Comment on above: Performed By: #### 0 0121 #### [facility] [address] [place] [address], [place] Chloride [Moles/Vol] 107 mmol/L Normal 98-107 [facility] Comment on above: Performed By: #### 0 0121 #### [facility] [address] [place] [address], [place] CO2 [Moles/Vol] 26 mmol/L Normal 21-31 [facility] Comment on above: Performed By: #### 0 0121 #### [facility] [address] [place] [address], [place] Creatinine [Mass/Vol] 2.01 mg/dL High 0.70-1.30 [facility] Comment on above: Performed By: #### 0 0121 #### [facility] [address] [place] [address], [place] eGFR- 40 ml/min/1.73sq m Abnormal >60 [facility] Comment on above: Performed By: #### 0 0121 #### [facility] [address] [place] [address], [place] eGFR- non- 33 ml/min/1.73sq m Abnormal >60 [facility] Comment on above: Performed By: #### 0 0121 #### [facility] [address] [place] [address], [facility] Glucose [Mass/Vol] 130 mg/dL High 70-100 [facility] Comment on above: Performed By: #### 0 0121 #### [facility] [address] [place] [address], [facility] Potassium [Moles/Vol] 5.1 mmol/L Normal 3.5-5.1 [facility] Comment on above: Performed By: #### 0 0121 #### [facility] [address] [facility] [address], [facility] Protein [Mass/Vol] 7.1 g/dL Normal 6.0-8.3 [facility] Comment on above: Performed By: #### 0 0121 #### [facility] [address] [facility] [place] [address], [facility] Sodium [Moles/Vol] 139 mmol/L Normal 136-145 [facility] Comment on above: Performed By: #### 0 0121 #### [facility] [address] [place] [address], [facility] Urea nitrogen [Mass/Vol] 37 mg/dL High 7-25 [facility] Comment on above: Performed By: #### 0 0121 #### [facility] [address] [place] [id number], [facility] HEMOGLOBIN A1Con 08-31-2021 Glucose [Moles/Vol] 157 mmol/L Normal [facility] Comment on above: Performed By: #### 3 1791 #### [facility] [address] [facility] [address], [facility] HbA1c (Bld) [Mass fraction] 7.1 % High 4.0-6.0 [facility] Comment on above: Performed By: #### 3 1791 #### [facility] [address] HIV VIRAL LOADon 08-31-2021 HIV QNT RNA PCR: Not detected Normal [facility] Comment on above: Result Comment: The Aptima HIV Quant assay is a real-time filler feeder-mediated amplification (TMA) test which has a dynamic range of 30-10,000,000 copies/mL (1.47-7.0 log copies/mL). The Aptima HIV Quant assay is used for quantitation of human immunodeficiency virus type 1 (HIV-1) RNA in human plasma from HIV-infected individuals. The Aptima HIV-1 Quant assay is intended for use in conjunction with clinical presentation and other laboratory markers for disease prognosis and for use as an aid in monitoring the effects of antiretroviral treatment, as measured by changes in plasma HIV-1 RNA levels. This assay is not intended to be used as a donor screening test for HIV-1 or as a diagnostic test to confirm the presence of HIV-1 infection. Performed By: #### 8 [id number] #### [address] LOG 10 COPIES Not detected Normal [facility] Comment on above: Performed By: #### 8 4178 #### [facility] [address] URINALYSISon 08-31-2021 Appearance (U) CLEAR Normal CLEAR [facility] Comment on above: Performed By: #### 1 0008 #### [facility] [address] Bilirubin Ql (U) Negative Normal NEGATIVE [facility] Comment on above: Performed By: #### 1 0008 #### [facility] [address] Color (U) YELLOW Normal YELLOW [facility] Comment on above: Performed By: #### 1 0008 #### [facility] [address] [place] [address], [facility] EPIS NONE SEEN Normal FEW,OCC,NONE SEEN [facility] Comment on above: Performed By: #### 1 0008 #### [facility] [address] [place] [address], [facility] Glucose Ql (U) Negative Normal NEGATIVE [facility] Comment on above: Performed By: #### 1 0008 #### [facility] [address] [place] [address], [place] Hemoglobin Ql (U) TRACE Abnormal NEGATIVE [facility] Comment on above: Performed By: #### 1 0008 #### [facility] [address] [place] [address], [facility] KETONE Negative Normal NEGATIVE [facility] Comment on above: Performed By: #### 1 0008 #### [facility] [address] [place] [address], [place] LEUK SABRINA Negative Normal NEGATIVE [facility] Comment on above: Performed By: #### 1 0008 #### [facility] [address] [facility] [address], [place] Nitrite Ql (U) Negative Normal NEGATIVE [facility] Comment on above: Performed By: #### 1 0008 #### [facility] [address] [facility] [address], [facility] pH (U) 6.0 [pH] Normal 5.0-8.0 [facility] Comment on above: Performed By: #### 1 0008 #### [facility] [address] [facility] [address], [facility] Protein Ql (U) Negative Normal NEGATIVE [facility] Comment on above: Performed By: #### 1 0008 #### [facility] [address] [place] [address], [facility] RBC 0-2 Abnormal NONE SEEN [facility] Comment on above: Performed By: #### 1 0008 #### [facility] [address] SPEC GRAV 1.025 High 1.015-1.020 [facility] Comment on above: Performed By: #### 1 0008 #### [facility] [address] WBC UA NONE SEEN Normal NONE SEEN [facility] Comment on above: Performed By: #### 1 0008 #### [facility] [address] Encounters Encounter Date Encounter Type Care Provider Facility Start: 05-07-2024 ambulatory [facility] Start: 05-07-2024 ambulatory JADA [facility] Start: 05-07-2024 End: 05-07-2024 ambulatory SUSHILA Thurston [facility] Start: 04-17-2024 End: 04-17-2024 ambulatory ALLYSON BOYD [facility] Start: 03-20-2024 ambulatory [facility] Start: 03-08-2024 ambulatory JADA [facility] Start: 01-22-2024 ambulatory ARLEN KHAN [facility] Start: 11-21-2023 End: 11-21-2023 ambulatory SUSHILA JOHANSENWVBryan [facility] Start: 10-24-2023 End: 10-24-2023 ambulatory DORA WEBBER [facility] Start: 02-08-2023 ambulatory Jose BECKER Facility :[facility] Start: 02-03-2023 ambulatory Jose BECKER Facility:[facility] Start: 09-26-2022 ambulatory ARLEN KHAN Facility:[facility] Start: 09-14-2022 End: 09-15-[address] JONAS MURILLO Facility:[facility] Start: 05-20-[address] ELENO JOHNSON Fac ility:[facility] Start: 05-16-2022 End: 05-17-[address] ELENO JOHNSON Facility:[facility] Start: 04-05-2022 Encounter for other preprocedural examination DR ELENO JOHNSON [facility] Start: 04-05-2022 Encounter for preprocedural laboratory examination DR ELENO JOHNSON [facility] Start: 04-05-2022 End: 04-06-2022 ambulatory JONAS MURILLO Facility:[facility] Start: 04-01-2022 End: 04-02-[address] ELENO JOHNSON Facility:[facility] Start: 04-01-2022 End: 04-02-2022 Encounter for other preprocedural examination DR ELENO JOHNSON Facility:[facility] Start: 03-21-2022 End: 03-22-[address] ELENO JOHNSON Facility:[facility] Start: 01-11-2022 ambulatory TREVON COOK Tristan lity:[facility] Start: 01-03-2022 End: 01-04-[address] ELENO JOHNSON Facility:[facility] Start: 12-24-2021 End: 12-25-[address] JONAS MURILLO Facility:[facility] Start: 12-20-2021 End: 12-22-[address] JONAS MURILLO Facility:[facility] Procedures Date Procedure Procedure Detail Performing Clinician Start: 09-14-[address] ELENO JOHNSON Comment on above: Performed By: #### P TTHEP #### [facility] [address] [place] [address] Dr. Jose Gonsales Payers Date Payer Category Payer Self-pay [id number] 1961 Unknown [id number] 1955 Unknown [id number] 2.16.8 [id number] 1953 Unknown [id number] 2.16.84 [id number] 1953 Unknown [id number] 2.16.84 [id number] 1953 Unknown [id number] 2.16.84 [id number] 1953 Unknown [id number] 2.16.84 [id number] 1953 Unknown [id number] 2.16.84 [id number] 1953 Unknown [id number] 2.16.84 [id number] 1953 Unknown [id number] 2.16.84 [id number] 1953 Unknown [id number] 2.16.84 [id number] 1953 Unknown [id number] 2.16.84 [id number] 1953 Unknown [id number] 2.16.84 [id number] 1953 Unknown [id number] 2.16.8 [id number] Clinical Notes 03-21-2022 to 05-20-2024 Note Date & Type Note Facility 05-20-2024 Note SARA phoned Pt to inf orm Pt that eligibility documentation was received. [facility] 05-16-2024 Note SARA received eligibi megan documentation from Pt via fax, but documentation was illegible. [facility] phoned Pt and asked Pt to have documentation re-sent with greater legibility. [facility] 05-07-2024 Note SARA met with Pt to sheela ascencio eligibility documentation. [facility] 05-07-2024 Note ------ Attestation signed by Sushila Tanner MD at 05/08/2024 11:09 AM I performed a history and physical examination of the patient Parish Contreras, I independently reviewed the laboratory work and imaging as well as other studies mentioned in the above note; I have seen the patient along with and discussed the management with the Infectious Diseases fellow, Cassandra Reed MD I have reviewed the above note, I agree with the findings and plan of care with the following additions and corrections: Parish was very reluctant to take any vaccines today but eventually agreed to tdap He is on an NRTI sparing regimen and has been undetectable for quite a while, even after stopping the third active agent (pifeltro). Repeat labs Repeat A1c looks better To followup with Dr Murillo for diabetes and his other medical problems Neuropathic pain is controlled with Lyrica. Thank you for allowing us to participate in the care of this patient. . ------ Subjective Patient ID: Parish Contreras is a 69 y.o. male who presents for HIV infection, unspecified symptom status (CMS/HCC); Health Maintenance; and Med Management. HPI 69 yo M with PMHx, Past Surg Hx, FMHx, and Social Hx per below presenting for re-evaluation of HIV care. Last seen in HIV clinic October 2023. HIV: - Re-evaluated for HIV. Last seen in HIV clinic in October 2023. HIV history thus far: - date of diagnosis 2000. - 2001 Kaletra/zerit/epivir > diarrhea - 2001 videx zerit epivir viramune zerit epivir > pancreatitis secondary to Zerit most likely - 2002 combivir /viramune - 2002 Kaletra gelcaps + sustiva > diarrhea reyataz sustiva > failure with resistance to both (see below genotype) nightmares with Sustiva. - 2007 Genotype - K103 (NNRTI resistance) and several PI mutations giving resistance to Reyataz only. 2007 - Trizivir - undetectable until 2010 fails Trizivir with multiple TAMs; genotype in clinical portal; no significant PI resistance this time. 04/2011 Trizivir changed to Isentress, Intelence, Prezista/norvir, all 4 BID 07/2011 VL still 700; claims 100% adherence - 2011 undetectable; it seems the specimens were kept for too long leading to spurious results with borderline viremia. - 2012 vl<40 2013 CD4 = 525/33%; VL<40 - 2015 same regimen for >4 years now, still undetectable, CD4 stable. slow urinary stream > lazy bladder - 2018 undetectable. vision stable. glycemia controlled with metformin 1g BID - 2018 simplify regimen - prezcobix pifeltro tivicay - 2020 creatinine up, vl undetectable. - 2021 CD4 5567 VL UD - 2022 stop pifeltro, continue only prezcobix and tivicay daily. VL still UD - Patient since last evaluation been evaluated by cards for HF and CAD. Plan at that time was to continue GDMT and diuretic therapy with just jardiance. - Patient currently compliant right now on Tivicay 50mg daily + Prezcobix 800-150mg. Denies any missed doses or issues with meds. - Symptoms: only complains of chronic issues related to his back pain, occasional diarrhea associated with diet, and chronic blindness. - Patient is due for labs today. No recent labs on file. Diabetes / HLD / Lumbar Hernia: - A1c = 8.2 most recently. Has increased due to lackluster diet. - measured blood sugars fasting have ranged between 90 - 140 per patient. - Currently on metformin + Jardiance - Compliant with Crestor 20mg daily for HLD. - Persistent neuropathic pain associated with lumbar spine issues. No definitive planned interventions at this moment of time. Health Care Maintenance: - Due for TDAP. 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 Is agreeable to getting vaccine. - Last colonoscopy was in 2009. Patient states he received cologuard recently which was negative. Past Medical History: Past Medical History: Diagnosis Date Abnormal ECG Arrhythmia Back pain herniated disc Coronary artery disease Diabetes (CMS/HCC) Heart attack (CMS/HCC) High cholesterol HIV (human immunodeficiency virus infection) (CMS/HCC) Hyperlipidemia Hypertension Hyperthyroidism Immune system disorder (CMS/HCC) Myocardial infarction (CMS/HCC) Neuropathy Stroke (cerebrum) (CMS/HCC) Patient Active Problem List Diagnosis Atrial flutter (CMS/HCC) Benign prostatic hyperplasia Essential hypertension Human immunodeficiency virus infection (CMS/HCC) Hyperlipidemia Hypothyroidism Neuralgia and neuritis, unspecified Legal blindness Type 2 diabetes mellitus without complication (CMS/HCC) Transient ischemic attack Onychomycosis due to dermatophyte Pure hyperglyceridemia Costal chondritis Increased frequency of urination (more content not included)... [facility] 04-18-2024 Note [id number] (age, hypertension, stroke, diabetes). No AF since then - has been on low-dose Eliquis 2.5 mg twice daily per Dr. Khan- no bleeding tendencies noted -s/p ablation 10/17 -Continue metoprolol [facility] 04-18-2024 Note Lipid abnormalities are unchanged. Pharmacotherapy as ordered. Continue crestor, reviewed lipid panel and Chol and LDL were well controlled [facility] 04-18-2024 Note Coronary artery dise ase is unchanged. GDMT toprol, crestor, imdur Continue current treatment regimen. Dietary sodium restriction. Regular aerobic exercise. Continue current medications. Cardiac status will be reassessed in 6 months. [facility] 04-18-2024 Note [facility] II, currently e uvolemic without exacerbation Continue GDMT- Crestor, toprol, jardiance Diuretic therapy- stable with just jardiance Monitor daily weights, I&O, fluid restriction 1.5-2L/day, renal function and electrolytes- D/w pt- *Continue heart healthy diet and low sodium diet. *Monitor daily weights, fluid restriction 1.5-2Liters/day, lab work to check kidney/renal function and electrolytes *Call office for weight gain of 2 pounds in 1 day or 5 pounds in 1 week, increased leg swelling, shortness of breath or shortness of breath at night and having to sleep sitting up taller/more pillows than normal or in recliner. [facility] 04-17-2024 Note Review of Systems Cardiovascular: Positive for palpitations. Pt complains of one episode of palpitations 3 weeks ago that lasted a couple seconds. He denies all other cardiac symptoms. [facility] 04-17-2024 Note [facility] CARDIOLOGY PROGR ESS NOTE HPI: Parish Contreras is a 69 y.o. male here for routine F/U HPI 69 yo male presents to clinic for routine F/U for CAD, HFrEF, HTN, HPL, A flutter. Overall pt states he is doing well, denied any concerning symptoms currently. Denied chest pain, worsening SOB with exertion, denied orthopnea or palpitations. Denied any bleeding tendencies Previous HPI per Sheela Webber NP Reason for visit: Atrial flutter s/p ablation 09/2022 with loop implant 10/24/23: he is here for follow-up he has been feeling well without complaints of chest pain, shortness of breath, MEDINA, LE edema, palpitations loop data review 10/24/2023 shows a nocturnal bradycardia And during this rhythm he had a 4 beat run of short SVT which looks like atrial tachycardia; otherwise no atrial fib noted. 05/23/23 HPI: Parish is here for follow-up status post a flutter ablation with loop implant. States has been feeling well and has not had any palpitations, shortness of breath, chest pain, MEDINA. He was admitted to [facility] in February with GI issues. Potassium went very high but came down with meds. Potassium was rechecked 04/18/23 and was normal. He is no longer taking lisinopril and he isn't sure why. Review of Systems Constitutional: Negative. Respiratory: Negative. Cardiovascular: Negative. Neurological: Negative. All other systems reviewed and are negative. Visit Vitals BP 108/65 Pulse 78 Ht 1.803 m (5' 11 ) Wt 93 kg (205 lb) SpO2 100% BMI 28.59 kg/m??? Smoking Status Never BSA 2.16 m??? Allergies Allergen Reactions Ciprofloxacin Unknown Stavudine pancreatitis Sulfa (Sulfonamide Antibiotics) Unknown Ticlopidine Rash Medications: Current Outpatient Medications on File Prior to Visit Medication Sig Dispense Refill Eliquis 2.5 mg tablet TAKE ONE TABLET BY MOUTH TWICE DAILY 180 tablet 1 isosorbide mononitrate ER (Imdur) 30 mg 24 hr tablet TAKE ONE TABLET BY MOUTH EVERY DAY 90 tablet 1 Jardiance 10 mg TAKE ONE TABLET BY MOUTH EVERY DAY 90 tablet 1 metoprolol succinate XL (Toprol-XL) 50 mg 24 hr tablet Take 25 mg by mouth 1 (one) time each day. nitroglycerin (Nitrostat) 0.[address] 0.4 mg under the tongue. pregabalin (Lyrica) 50 mg capsule Take 1 capsule (50 mg) by mouth in the morning and at bedtime. 60 capsule 2 Prezcobix 800-150 mg-mg tablet TAKE ONE TABLET BY MOUTH EVERY DAY 30 tablet 2 rosuvastatin (Crestor) 20 mg tablet TAKE ONE TABLET BY MOUTH EVERY DAY 90 tablet 1 tamsulosin (Flomax) 0.4 mg 24 hr capsule TAKE ONE CAPSULE BY MOUTH EVERY DAY 90 capsule 3 Tivicay 50 mg tablet TAKE ONE TABLET BY MOUTH EVERY DAY 30 tablet 2 traMADol (Ultram) 50 mg tablet TAKE ONE TABLET BY MOUTH TWICE DAILY 60 tablet 2 Contour Test Strips strip test blood sugar EVERY DAY NEEDED 100 strip 4 levothyroxine (Synthroid, Levoxyl) 50 mcg tablet TAKE ONE TABLET BY MOUTH EVERY DAY 90 tablet 1 metFORMIN (Glucophage) 1,000 mg tablet TAKE ONE TABLET BY MOUTH TWICE DAILY 180 tablet 1 No current facility-administered medications on file prior to visit. Physical Exam: Constitutional: Appearance: Normal appearance. Without apparent distress, obese HENT: Head: Normocephalic and atraumatic. Nose: Nose normal. Mouth/Throat: Mouth: Mucous membranes are moist. Eyes: Extraocular Movements: Extraocular movements intact. Conjunctiva/sclera: Conjunctivae normal. Neck: Vascular: No JVD. Cardiovascular: Rate and Rhythm: Normal rate and regular rhythm. Pulses: Dorsalis pedis pulses are 3 on the right side and 3on the left side. Posterior tibial pulses are 3 on the right side and 3 on the left side. Heart sounds: Normal heart sounds, S1 normal and S2 normal. Pulmonary: Effort: Pulmonary effort is normal. Breath sounds: Normal breath sounds. Abdominal: General: Bowel sounds are normal. Palpations: Abdomen is soft. Musculoskeletal: General: Normal range of motion. Cervical back: Normal range of motion. Right lower leg: No edema. Left lower leg: No edema. Skin: General: Skin is warm and dry. Capillary Refill: Capillary refill takes less than 2 seconds. Neurological: General: No focal deficit present. Mental Status: he is alert and oriented to person, place, and time. Psychiatric: Mood and Affect: Mood normal. Behavior: Behavior normal. Thought Content: Thought content normal. Judgment: Judgment normal. Labs: CBC stable, renal function elevated, liver funtion normal, Lipid level Chol/LDL well controlled Latest Reference Range & Units 11/21/23 12:19 Sodium 136 - 145 mmol/L 137 Potassium 3.5 - 5.1 mmol/L 4.9 Chloride 98 - 107 mmol/L 104 CO2 21 - 31 mmol/L 27 Anion Gap 7 - 20 mmol/L 11 BUN 7 - 25 mg/dL 30 (H) Creatinine 0.70 - 1.30 mg/dL 2.05 (H) BUN/Creatinine Ratio 14.6 Glucose 70 - 100 mg/dL 115 (H) Calcium 8.6 - 10.3 mg/dL 9.9 Alkaline Phosphatase 34 - 104 U/L 62 Albumin 3.5 - 5.7 g/dL 4.7 Total Protein 6.0 - 8.3 g/dL 7.6 EGFR (more content not included)... [facility] 01-02-2024 Note [facility] LVM for patient regarding transition of medical technologist care. [facility] informed patient of nurse line number for any case management needs until reassigned. [facility] available until 01.08.24 to assist with any transition concerns. [facility] 12-22-2023 Note Since the pain seems to be getting worse, I encouraged him to go back and see the neurosurgeon that evaluated him years ago in [place]. I defer imaging to the specialist [facility] 11-21-2023 Note Application submitte d Eligibility will be faxed to [facility] SDOH and care plan updated [facility] 11-21-2023 Note Subjective Patient ID: Parish Contreras is a 68 y.o. male who presents for HIV Positive/AIDS and Health Maintenance. 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, has not seen neurosurgery in maybe 5 years - Dr Adrian Sam Uses rice packs heated in microwave, which have helped He declines tdap Past Medical History: Past Medical History: Diagnosis Date Abnormal ECG Arrhythmia Back pain herniated disc Coronary artery disease Diabetes (CMS/HCC) Heart attack (CMS/HCC) High cholesterol HIV (human immunodeficiency virus infection) (CMS/HCC) Hyperlipidemia Hypertension Hyperthyroidism Immune system disorder (CMS/HCC) Myocardial infarction (CMS/HCC) Neuropathy Stroke (cerebrum) ([facility]/HCC) Patient Active Problem List Diagnosis Atrial flutter (CMS/HCC) Benign prostatic hyperplasia Essential hypertension Human immunodeficiency virus infection (CMS/HCC) Hyperlipidemia Hypothyroidism Neuralgia and neuritis, unspecified Legal blindness Type 2 diabetes mellitus without complication (CMS/HCC) Transient ischemic attack Onychomycosis due to dermatophyte Pure hyperglyceridemia Costal chondritis Increased frequency of urination S/P ablation of atrial flutter Weight loss, unintentional Chronic systolic heart failure (CMS/HCC) Coronary artery disease of bypass graft of [place] heart with stable angina pectoris (CMS/HCC) Stage 3b chronic kidney disease (CMS/HCC) Personal history of colonic polyps Anemia Bradycardia Cardiomyopathy, ischemic Diabetes (CMS/HCC) History of myocardial infarction Hx-TIA (transient ischemic attack) Inflammatory polyneuropathy (CMS/HCC) Paroxysmal A-fib ([facility]/HCC) Atherosclerotic heart disease Cortical blindness Preventative health care Primary osteoarthritis of both knees Cerebral infarction ([facility]/HCC) Displacement of lumbar intervertebral disc without myelopathy Past Surgical History: Past Surgical History: Procedure Laterality Date CHOLECYSTECTOMY COLONOSCOPY 12/16/2009 CORONARY ARTERY BYPASS GRAFT 09/25/2006 x5 HERNIA REPAIR 12/16/2009 lumbilical herniorrhaphy Medications: Current Outpatient Medications on File Prior to Visit Medication Sig Dispense Refill Contour Test Strips strip test blood sugar EVERY DAY NEEDED 100 strip 4 Eliquis 2.5 mg tablet TAKE ONE TABLET BY MOUTH TWICE DAILY 180 tablet 1 isosorbide mononitrate ER (Imdur) 30 mg 24 hr tablet TAKE ONE TABLET BY MOUTH EVERY DAY 90 tablet 1 Jardiance 10 mg TAKE ONE TABLET BY MOUTH EVERY DAY 90 tablet 1 levothyroxine (Synthroid, Levoxyl) 50 mcg tablet TAKE ONE TABLET BY MOUTH EVERY DAY 90 tablet 1 metFORMIN (Glucophage) 1,000 mg tablet TAKE ONE TABLET BY MOUTH TWICE DAILY 180 tablet 1 metoprolol succinate XL (Toprol-XL) 50 mg 24 hr tablet Take 25 mg by mouth 1 (one) time each day. nitroglycerin (Nitrostat) 0.[address] 0.4 mg under the tongue. pregabalin (Lyrica) 50 mg capsule TAKE ONE CAPSULE BY MOUTH THREE TIMES DAILY (Patient taking differently: Take 50 mg by mouth in the morning and at bedtime.) 90 capsule 2 Prezcobix 800-150 mg-mg tablet TAKE ONE TABLET BY MOUTH EVERY DAY 30 tablet 2 rosuvastatin (Crestor) 20 mg tablet TAKE ONE TABLET BY MOUTH EVERY DAY 90 tablet 1 tamsulosin (Flomax) 0.4 mg 24 hr capsule TAKE ONE CAPSULE BY MOUTH EVERY DAY 90 capsule 3 Tivicay 50 mg tablet TAKE ONE TABLET BY MOUTH EVERY DAY 30 tablet 2 traMADol (Ultram) 50 mg tablet TAKE ONE TABLET BY MOUTH TWICE DAILY 60 tablet 1 digoxin (Lanoxin) 125 MCG tablet TAKE ONE TABLET BY MOUTH EVERY DAY (Patient not taking: Reported on 11/21/2023) 90 tablet 1 No current facility-administered medications on file prior to visit. Social History: Social History Socioeconomic History Marital status: Spouse name: None Number of children: None Years of education: None Highest education level: None Occupational History None Tobacco Use Smoking status: Never Passive exposure: Never Smokeless tobacco: Never Vaping Use Vaping Use: Never used Substance and Sexual Activity Alcohol use: Never Drug use: Never Sexual activity: None Other Topics Concern None Social History Narrative None Social Determinants of Health Financial Resource Strain: Low Risk (05/16/2023) Overall Financial Resource Strain (CARDIA) Difficulty of Paying Living Expenses: Not very hard Food Insecurity: No Food Insecurity (05/16/2023) Hunger Vital Sign Worried About Running Out of Food in the Last Year: Never true Ran Out of Food in the Last Year: Never true Transportation Needs: No Transportation Needs (05/16/2023) Transportation Lack of Transportation (Medical): No Lack of Trans (more content not included)... [facility] 10-24-2023 Note [facility] Consul t Note Reason for visit: Atrial flutter s/p ablation 09/2022 with loop implant 10/24/23: he is here for follow-up he has been feeling well without complaints of chest pain, shortness of breath, MEDINA, LE edema, palpitations loop data review 10/24/2023 shows a nocturnal bradycardia And during this rhythm he had a 4 beat run of short SVT which looks like atrial tachycardia; otherwise no atrial fib noted. 05/23/23 HPI: Parish is here for follow-up status post a flutter ablation with loop implant.States has been feeling well and has not had any palpitations, shortness of breath, chest pain, MEDINA. He was admitted to [facility] in February with GI issues. Potassium went very high but came down with meds. Potassium was rechecked 04/18/23 and was normal. He is no longer taking lisinopril and he isn't sure why. Review of Systems Constitutional: Positive for malaise/fatigue. Respiratory: Positive for snoring. Musculoskeletal: Positive for arthritis, back pain and myalgias. All other systems reviewed and are negative Loop device did not show any concerns for arrhythmias. ------ --------- Previous per Dr. Khan 08/2022: HPI: Parish Contreras is a 68 y.o. year old with past medical history of coronary artery disease diagnosed in 2006, status post 5 vessel bypass surgery in 2006, DM2, HIV on treatment, HFrEF. He is known to have mildly reduced ventricular systolic function with an ejection fraction of 47% by echocardiogram in 2013. ------ PMH: Past Medical History: Diagnosis Date Abnormal ECG Arrhythmia Back pain herniated disc Coronary artery disease Diabetes (CMS/HCC) Heart attack (CMS/HCC) High cholesterol HIV (human immunodeficiency virus infection) (CMS/HCC) Hyperlipidemia Hypertension Hyperthyroidism Immune system disorder (CMS/HCC) Myocardial infarction (CMS/HCC) Neuropathy Stroke (cerebrum) (CMS/HCC) PSH: Past Surgical History: Procedure Laterality Date CHOLECYSTECTOMY COLONOSCOPY 12/16/2009 CORONARY ARTERY BYPASS GRAFT 09/25/2006 x5 HERNIA REPAIR 12/16/2009 lumbilical herniorrhaphy SH: Social Determinants of Health Tobacco Use: Low Risk (05/23/2023) Patient History Smoking Tobacco Use: Never Smokeless Tobacco Use: Never Passive Exposure: Never Alcohol Use: Not At Risk (05/16/2023) AUDIT-C Frequency of Alcohol Consumption: Never Average Number of Drinks: Patient does not drink Frequency of Binge Drinking: Never Financial Resource Strain: Low Risk (05/16/2023) Overall Financial Resource Strain (CARDIA) Difficulty of Paying Living Expenses: Not very hard Food Insecurity: No Food Insecurity (05/16/2023) Hunger Vital Sign Worried About Running Out of Food in the Last Year: Never true Ran Out of Food in the Last Year: Never true Transportation Needs: No Transportation Needs (05/16/2023) PRAPARE - Transportation Lack of Transportation (Medical): No Lack of Transportation (Non-Medical): No Physical Activity: Not on file Stress: Not on file Social Connections: Not on file Intimate Partner Violence: Not on file (05/16/2023) Depression: Not at risk (05/16/2023) PHQ-2 PHQ-2 Score: 0 Housing Stability: Low Risk (05/16/2023) Housing Stability Vital Sign Unable to Pay for Housing in the Last Year: No Number of Places Lived in the Last Year: 1 Unstable Housing in the Last Year: No Utilities: Not on file Allergies: Allergies Allergen Reactions Ciprofloxacin Unknown Stavudine pancreatitis Sulfa (Sulfonamide Antibiotics) Unknown Ticlopidine Rash Weight: 89.4kg Vitals: 10/24/23 1024 BP: 120/72 Pulse: 57 SpO2: 98% Meds: Current Outpatient Medications on File Prior to Visit Medication Sig Dispense Refill digoxin (Lanoxin) 125 MCG tablet TAKE ONE TABLET BY MOUTH EVERY DAY 90 tablet 1 Eliquis 2.5 mg tablet TAKE ONE TABLET BY MOUTH TWICE DAILY 180 tablet 1 isosorbide mononitrate ER (Imdur) 30 mg 24 hr tablet TAKE ONE TABLET BY MOUTH EVERY DAY 90 tablet 1 Jardiance 10 mg TAKE ONE TABLET BY MOUTH EVERY DAY 90 tablet 1 levothyroxine (Synthroid, Levoxyl) 50 mcg tablet TAKE ONE TABLET BY MOUTH EVERY DAY 90 tablet 1 metFORMIN (Glucophage) 1,000 mg tablet TAKE ONE TABLET BY MOUTH TWICE DAILY 180 tablet 1 metoprolol succinate XL (Toprol-XL) 50 mg 24 hr tablet Take 25 mg by mouth 1 (one) time each day. nitroglycerin (Nitrostat) 0.[address] 0.4 mg under the tongue. pregabalin (Lyrica) 50 mg capsule TAKE ONE CAPSULE BY MOUTH THREE TIMES DAILY (Patient taking differently: Take 50 mg by mouth in the morning and at bedtime.) 90 capsule 2 Prezcobix 800-150 mg-mg tablet TAKE ONE TABLET BY MOUTH EVERY DAY 30 tablet 2 rosuvastatin (Crestor) 20 mg tablet TAKE ONE TABLET BY MOUTH EVERY DAY IN THE MORNING 90 tablet 1 tamsulosin (Flomax (more content not included)... [facility] 10-24-2023 Note Patient here for 6 m o follow up atrial flutter, hypertension, CAD, and chronic systolic heart failure. Says he hasn't been having palpitations. Denies chest pain, SOB, and lightheadedness/syncope. Review of Systems Eyes: Positive for blurred vision and visual disturbance. Musculoskeletal: Positive for arthritis, back pain and myalgias. All other systems reviewed and are negative. [facility] 02-08-2023 Note Chief Complaint consultation for colonoscopy HPI Staff 68 year old male presents on consultation from Dr. Murillo for surveillance colonoscopy. Last colonoscopy completed 11/2009 with tubular adenoma and serrated adenoma. Patient on Eliquis. History of Present Illness 68 yo male with h/o CAD, cardiomyopathy; paroxysmal atrial fibrillation, on Eliquis, htn, hypothyroidism, hyperlipidemia, HIV disease, bph, referred for surveillance colonoscopy due to h/o colon polyps; last colonoscopy 2009 with removal of cecal serrated adenoma, and tubular adenoma of sigmoid colon; denies change in bms or blood in stools, no abd complaints; abd operations significant for cholecystectomy and umbilical herniorrhaphy; on Eliquis daily, no asa or NSAID use, no SBE prophylaxis; no fmhx of GI malignancy or IBD. no tobacco use. Review of Systems PHQ Score Initial Depression Screen Score: 0 ROS - Provider Constitutional: no fever, no sweats, yes weight loss. Eyes: yes glasses, no blurred vision, no visual loss. ENMT: no dentures, no hoarseness, no swallowing difficulties, no hearing loss, no ear infection(s), no nose bleeds. Cardiovascular: normal blood pressure, no chest pain, regular heartbeat, no heart murmur. Respiratory: no shortness of breath, no cough, no asthma, no wheezing. Gastrointestinal: no nausea, no vomiting, no diarrhea, no constipation, no blood in stool, no change in bowel habits, no abdominal pain, no hepatitis. Genitourinary: no kidney stones, no urine infection, no dysuria. Musculoskeletal: no pain, no weakness. Skin: no changing moles, no rash, no skin lumps. Neurologic: no seizures, no epilepsy, no headache. Psychiatric: no emotional or psychiatric problem. Heme/Lymph: no bleeding problems, no anemia, no blood clots, no transfusions. Allergy/Immunologic: no swollen lymph nodes/glands, no IV drug abuse. Other: Additional ROS info: Except as noted in the above Review of Systems and in the History of Present Illness, all other systems have been reviewed and are negative or noncontributory. Physical Exam Vitals & Measurements HR: 68(Peripheral) RR: 16 BP: 112/64 HT: 71 in HT: 180.34 cm WT: 88.8 kg WT: 195.36 lb BMI: 27.3 HEENT: normal conjunctiva, sclera clear, no scleral icterus, EOM intact, PERRLA, oral mucosa moist without lesions. Neck: trachea midline, no mass, symmetric, no thyromegaly or nodules, no adenopathy Respiratory: lungs CTA, respirations non labored. Cardiovascular: regular rate and rhythm, no murmur, no pedal edema or varicosities. Gastrointestinal: soft, non distended, no tenderness, no masses, no palpable hernias, diastasis recti no, no hepatosplenomegaly; normal bs Lymphatic: no cervical adenopathy, no supraclavicular adenopathy Musculoskeletal: normal gait, digits and nails without infection, nodes, cyanosis, clubbing. Skin: no rashes, no lesions, no ulcers, no subcutaneous nodules, induration. Psychiatric/Neuro: oriented to time, place, person, judgement normal, affect appropriate for age, insight intact, no focal deficits. Tests: review of old records completed, Discussed surgical options, risks, and possible complications with patient. Assessment/Plan 1. Personal history of colonic polyps (Z86.010: Personal history of colonic polyps) plan surveillance colonoscopy under anesthesia, informed consent obtained. Follow-up No qualifying data available Problem List/Past Medical History Ongoing Anemia Atherosclerotic heart disease Atrial flutter BPH (benign prostatic hyperplasia) Bradycardia Cardiomyopathy, ischemic Cortical blindness Diabetes History of colonic polyps History of myocardial infarction HIV disease HTN (hypertension) Hx-TIA (transient ischemic attack) Hyperlipidemia Hypertriglyceridemia Hypothyroidism Inflammatory polyneuropathy Paroxysmal A-fib Personal history of colonic polyps Historical No qualifying data Procedure/Surgical History Colonoscopy (12/16/2009), Repair of umbilical hernia (12/16/2009), CABG - Coronary artery bypass graft, Implantation of insertable loop recorder, Incision and drainage of abscess, Laparoscopic cholecystectomy. Medications Cardizem 60 mg Tab, 60 mg= 1 tab(s), Oral, TID Crestor 20 mg Tab, 20 mg= 1 tab(s), Oral, Daily Eliquis 2.5 mg oral tablet, 2.5 mg= 1 tab(s), Oral, BID Flomax 0.4 mg Cap, 0.4 mg= 1 cap(s), Oral, Daily isosorbide mononitrate 30 mg ER Tab, 30 mg= 1 tab(s), Oral, qAM Jardiance 10 mg oral tablet, 10 mg= 1 tab(s), Oral, qAM Lanoxin 125 mcg Tab, 125 mcg= 1 tab(s), Oral, Daily levothyroxine 50 mcg (0.05 mg) Tab, 50 mcg= 1 tab(s), Oral, Daily Lyrica 50 mg Cap, 50 mg= 1 cap(s), Oral, TID metformin 1000 mg Tab, 1000 mg= 1 tab(s), Oral, BID metoprolol 50 mg ER Tab, 25 mg= 0.5 tab(s), Oral, Daily nitroglycerin 0.4 mg sublingual Tab, 0.4 mg= 1 tab(s), SubLingual, q5min, PRN Prezcobix 800 mg-150 mg oral tablet, 1 tab(s), Oral, Daily Tivicay 50 mg oral tablet, 50 mg= 1 tab(s), Oral, Da (more content not included)... [facility] Comment on above: Result Comment: Elec tronically Signed By: ROSITA LANDEROS, Jose Lewis\Date and Time Signed: 02/08/23 16:19 EDT 03-21-2022 Note CARDIAC STRESS TEST Requesting Physician: Procedure Date:03/21/2022 Lexiscan Stress Test with Myocardial Perfusion Imaging performed at the [facility] on 03/21/2022. Informed consent was obtained. An intravenous line was secured. Baseline ECG was obtained along with vital signs. Lexiscan 0.4 mg was infused slowly, followed by administration of Cardiolite. Electrocardiogram was monitored. The patient went on to obtain SPECT cardiac imaging. Resting heart rate was 45 BPM and laurie to a maximum heart rate of 83 BPM. Resting blood pressure was 146/78 and maximum blood pressure was 172/90. Baseline ECG showed sinus bradycardia with no ischemic changes. ECG following infusion of Lexiscan showed sinus rhythm with PVCs and no ischemic ST changes. SUMMARY OF THE FINDINGS: 1. Negative Lexiscan stress test for ischemic ECG changes. 2. Myocardial perfusion images will be reported separately. [facility] Signed and Approved by: DR ELENO JOHNSON 03/29/2022 20:54:00 [facility] Summary Purpose Family History No Family History Records FoundNo Family History Records FoundNo Family History Records FoundNo Family History Records Found Advance Directives No Advanced Directives Records FoundNo Advanced Directives Records FoundNo Advanced Directives Records FoundNo Advanced Directives Records Found Additional Source Comments (unrecognized sect ion and content) No Status Records FoundNo Status Records FoundNo Status Records FoundNo Status Records Found INFORMATION SOURCE (unrecogn ized section and content) DATE CREATED AUTHOR 04/13/2022 [facility] DATE CREATED AUTHOR AUTHOR'S ORGANIZ ATION 09/26/2022 [facility] DATE CREATED AUTHOR AUTHOR'S ORGANIZ ATION 02/08/2023 [facility] DATE CREATED AUTHOR AUTHOR'S ORGANIZ ATION 06/06/2024 [facility] FOR RECORDS PERTAINING TO PATIENTS WHO ARE OR HAVE BEEN ENROLLED IN A CHEMICAL DEPENDENCY/SUBSTANCEABUSE PROGRAM, SOME INFORMATION MAY BE OMITTED. This clinical summary was aggregated from multiple sources. Caution should be exercised in using it in the provision of clinical care. This summary normalizes information from multiple sources, and as a consequence, information in this document may materially change the coding, format and clinical context of patient data. In addition, data may be omitted in some cases. CLINICAL DECISIONS SHOULD BE BASED ON THE PRIMARY CLINICAL RECORDS. [facility]. provides no warranty or guarantee of the accuracy or completeness of information in this document.
--- NOTE | 2024-06-19 13:08 | XR_ITS ---
The [place] [id number] Patient Name: PARISH RAY MRN: [id number] date: 1955 Sex: M Assigned Patient Location: [facility] Current Patient Location: Accession/Order Number: [id number] Exam Date: 06/19/2024 13:15 Report Date: 06/21/2024 06:35 At the request of: JONAS SHEETS Procedure: XR lumbar spine min 4V EXAMINATION: XR lumbar spine min 4V HISTORY: Lumbar Herniated Disc M51.26 ; chronic low back pain increasing in severity since falling one month ago; left leg pain COMPARISON: No relevant comparison available. FINDINGS: BONES: Slight anterior wedging of L1 vertebral body without increased trabecular density. Normal height and alignment of the remaining lumbar vertebral bodies. Mild/moderate degenerative facet arthropathy L4-L5, L5-S1. DISC SPACES: Marked narrowing L5-S1. PARASPINOUS: Negative. No paraspinous abnormality is seen. OTHER: Negative. XR/XR lumbar spine min 4V IMPRESSION: 1. Mild compression fracture of L1; age indeterminant but suspected to be chronic. 2. L5-S1 marked degenerative disc disease and moderate degenerative facet arthropathy. Electronically authenticated by: ORAL VILLALOBOS Date: 06/21/2024 06:35
== END 2024-06-19 12:55 | disposition home or self-care (01) ==
LOC: RAD 12:57
PROVIDERS: PCP Family Medicine; Visit Provider Family Medicine
DX: M51.26 Other intervertebral disc displacement, lumbar region (principal); M48.56XA Collapsed vertebra, not elsewhere classified, lumbar region, initial encounter for fracture; M51.36 Other intervertebral disc degeneration, lumbar region
CPT/HCPCS: 72110

== ENCOUNTER 2024-07-08 12:25 | Outpatient (OUT) | payer MEDICARE, SELFPAY ==
--- NOTE | 2024-07-08 12:31 | MR_ITS ---
The [address] [address] Patient Name: PARISH RAY MRN: [id number] date: 1955 Sex: M Assigned Patient Location: MRI Current Patient Location: MRI Accession/Order Number: [id number] Exam Date: 07/08/2024 12:37 Report Date: 07/08/2024 13:51 At the request of: JONAS SHEETS Procedure: MR lumbar spine wo con EXAMINATION: MR lumbar spine wo con HISTORY: Lumbar Herniated Disc COMPARISON: No relevant comparison available. TECHNIQUE: A variety of imaging planes and parameters were utilized for visualization of suspected pathology. FINDINGS: For the purposes of numbering, sagittal T2 image # 8 extends from the T11 vertebral body superiorly to the S2-S3 level inferiorly. PARASPINAL AREA: Normal with no visible mass. BONES: Normal alignment with no acute fracture, dislocation or bone edema. Mild heterogeneous marrow signal is likely age-related change CORD/CAUDA EQUINA: Normal caliber, contour, and signal intensity. DISC LEVELS: 12-L1: Early degenerative disc disease is present without focal protrusion or neural impingement. L1-L2: Early degenerative disc disease is present without focal protrusion or neural impingement. L2-L3: Early degenerative disc disease is present without focal protrusion or neural impingement. L3-L4: Early degenerative disc disease is present without focal protrusion or neural impingement. L4-L5: Moderate degenerative disc disease is present without visible neural impingement. L5-S1: Moderate degenerative disc disease is present without visible neural impingement. MR/MR lumbar spine wo con IMPRESSION: Mild to moderate discogenic changes. No significant central or foraminal stenosis Electronically authenticated by: BRIAN LITTLEJOHN Date: 07/08/2024 13:51
--- OUTSIDE RECORDS SUMMARY | 2024-07-08 12:33 | XMS_ITS | CCD ---
Author Organization [facility] Care Team Providers Care Meter Reader Name Role Phone JONAS MURILLO Primary Care [...] Unavailable HOY, DR MCDANIEL Primary Care Unavailable DAYTON, DR BRIAN Cuevas Consulting Unavailable MOUKARBEL, DR JOHANSEN Admitting Unavailable ALEX, DR JOHANSEN Consulting Unavailable NILJose Chatman Attending Unavailable AbhinavJonas tobar Referring Unavailable ROXY, JADA Referring Unavailable ROXY, JADA Referring Unavailable ROXY, JADA Referring Unavailable DORA WEBBER Attending Unavailable ALLYSON BOYD Attending Unavailable ROXY, JADA Referring Unavailable ROXY, JADA Referring Unavailable ROXY, JADA Referring Unavailable SNEHA TANNERIU A Attending Unavailable ROXY, JADA Referring Unavailable ARLEN KHAN Referring Unavailable ROXY, JADA Referring Unavailable GEORGESCU, SUSHILA A Attending Unavailable ARLEN KHAN Referring Unavailable Allergies Allergy Classification Reported Allergen(s) Allergy Type Date of Onset Reaction(s) Facility (3 sources) liothyronine Drug Allergy 9 [facility] Repository (1 source) Stavudine Drug Allergy 1 [facility] Repository (1 source) Ciprofloxacin; Translations: [Cipro] Drug Allergy [facility] Repository (1 source) Sulfonamides (Antibiotic); Translations: [sulfa drugs] Propensity to adverse reactions (disorder) [facility] Repository (1 source) Ciprofloxacin; Translations: [CIPROFLOXACIN] Drug Allergy [facility] Repository (1 source) Stavudine; Translations: [STAVUDINE] Drug Allergy [facility] Repository (1 source) Sulfonamides (Antibiotic); Translations: [SULFA (SULFONAMIDE ANTIBIOTICS)] Propensity to adverse reactions to drug (disorder) [facility] Repository (1 source) Ticlopidine; Translations: [TICLOPIDINE] Drug Allergy [facility] Repository Problems Active Problems Problem Classification Problem Date Documented Date Episodic/Chronic Abdominal pain (4 sources) Unspecified abdominal pain; Translations: [UNSPECIFIED ABDOMINAL PAIN] Onset: 09-14-2022 Episodic Cardiac dysrhythmias (11 sources) Unspecified atrial flutter; Translations: [Junctional premature depolarization] Onset: 12-24-2021 Chronic Congestive heart failure; nonhypertensive (2 sources) Chronic systolic (congestive) heart failure; Translations: [Chronic systolic (congestive) heart failure] Onset: 12-03-2022 Chronic Coronary atherosclerosis and other heart disease (2 sources) Atherosclerotic heart disease of [place] coronary artery without angina pectoris; Translations: [Old [...] [ACUTE KIDNEY FAILURE UNSPECIFIED] Onset: 12-29-2021 Episodic Cardiac dysrhythmias (2 sources) Palpitations; Translations: [Palpitations] Onset: 03-08-2024 Episodic Coronary atherosclerosis and other heart disease (1 source) Presence of aortocoronary bypass graft; Translations: [PRESENCE AORTOCORONARY BYPASS GRAFT] Onset: 12-29-2021 Episodic Other aftercare (1 source) nursing home (current) use of aspirin; Translations: [INTERMEDIATE CURRENT USE OF ASPIRIN] Onset: 12-29-2021 Episodic Other aftercare (1 source) 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/anti platelets; Translations: [MEDICARE SALES REPRESENTATIVE ANTITHROMBOT/ANTIPLA TLETS] Onset: 12-29-2021 Episodic Other aftercare (1 source) 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; Translations: [INTERMEDIATE USE ORAL HYPOGLYCEMIC DX] Onset: 12-29-2021 Episodic Other aftercare (1 source) Other assisted (current) drug therapy; Translations: [OTH MEDICARE SALES REPRESENTATIVE CURRENT DRUG THERAPY] Onset: 12-29-2021 Episodic Other [...] Test Name Value Interpretation Reference Range Facility [facility] 06-26-2024 Refill [id number] Parish Contreras 1955 M Date Provider Department Center 06/26/2024 [facility] Problem Relation Age of Onset Heart attack Father Other Sister Heart attack Brother Other Brother Family Status - Relation Status Age at Father Sister Brother Reason for Visit and Comments: Med Refill [[id number]] [facility] Refillon 06-24-2024 Refill [id number] Parish Contreras 1955 M Date Provider Department Center 06/24/2024 281-SUSHILA TANNER [facility] Family History Problem Relation Age of Onset Heart attack Father Other Sister Heart attack Brother Other Brother Family Status - Relation Status Age at Father Sister Brother Reason for Visit and Comments: Med Refill [[id number]] [facility] 06-03-2024 Refill [id number] Parish Contreras 1955 M Date Provider Department Center 06/03/2024 281-SUSHILA TANNER [facility] Family History Problem Relation Age of Onset Heart attack Father Other Sister Heart attack Brother Other Brother Family Status - Relation Status Age at Father Sister Brother Reason for Visit and Comments: Med Refill [[id number]] Normal [facility] CBC WITH AUTO DIFFERENTIALon 05-07-2024 Basophils (Bld) [#/Vol] 0.02 10*3/uL Normal 0.00-0.20 [facility] Comment on above: Performed By: #### L [id number] #### [facility] ([facility]) [address] [place] [address] Basophils/100 WBC (Bld) 0.3 % Normal 0.0-1.0 [facility] Comment on above: Performed By: #### L [id number] #### [facility]) [address] [place] [address] Eosinophils (Bld) [#/Vol] 0.14 10*3/uL Normal 0.00-0.50 [facility] Comment on above: Performed By: #### L [id number] #### [facility] ([facility]) [address] [place] [address] Eosinophils/100 WBC (Bld) 2.4 % Normal 0.0-6.0 [facility] Comment on above: Performed By: #### L [id number] #### [facility]) [address] [place] [address] Erythrocyte distribution width (RBC) [Ratio] 13.7 % Normal 11.5-15.0 [facility] Comment on above: Performed By: #### L [id number] #### [facility] ([facility]) [address] [place] [address] ERYTHROCYTE MEAN CORPUSCULAR HEMOGLOBIN CONCENTRATION (G/DL) BY AUTOMATED 32.7 g/dL Normal 32.0-35.0 [facility] Comment on above: Performed By: #### L [id number] #### [facility]) [address] [place] [address] Hematocrit (Bld) [Volume fraction] 50.7 % Normal 39.0-55.0 [facility] Comment on above: Performed By: #### L [id number] #### [facility] [address] [place] [address] Hemoglobin (Bld) [Mass/Vol] 16.6 g/dL Normal 13.0-17.0 [facility] Comment on above: Performed By: #### L [id number] #### [facility] ([facility]) [address] [place] [address] Immature granulocytes (Bld) [#/Vol] 0.02 10*3/uL Normal 0.00-0.20 [facility] Comment on above: Performed By: #### L [id number] #### [facility] ([facility]) [address] [place] [address] Immature granulocytes/100 WBC (Bld) 0.3 % Normal 0.0-1.0 [facility] Comment on above: Performed By: #### L [id number] #### [facility] ([facility]) [address] [place] [address] Lymphocytes (Bld) [#/Vol] 1.93 10*3/uL Normal 1.20-4.00 [facility] Comment on above: Performed By: #### L [id number] #### [facility] ([facility]) [address] [place] [address] Lymphocytes/100 WBC (Bld) 32.4 % Normal 20.0-45.0 [facility] Comment on above: Performed By: #### L [id number] #### [facility] ([facility]) [address] [place] [address] MCH (RBC) [Entitic mass] 30.6 pg Normal 27.0-33.0 [facility] Comment on above: Performed By: #### L [id number] #### [facility] ([facility]) [address] [place] [address] MCV (RBC) [Entitic vol] 93.5 fL Normal 82.0-98.0 [facility] Comment on above: Performed By: #### L [id number] #### [facility] ([facility]) [address] [place] [address] Monocytes (Bld) [#/Vol] 0.38 10*3/uL Normal 0.10-1.00 [facility] Comment on above: Performed By: #### L [id number] #### [facility] ([facility]) [address] [place] [address] Monocytes/100 WBC (Bld) 6.4 % Normal 5.0-12.0 [facility] Comment on above: Performed By: #### L [id number] #### [facility] ([facility] [address] [place] [address] Neutrophils (Bld) [#/Vol] 3.46 10*3/uL Normal 1.60-7.60 [facility] Comment on above: Performed By: #### L [id number] #### [facility] [address] [place] [address] Neutrophils/100 WBC (Bld) 58.2 % Normal 40.0-72.0 [facility] Comment on above: Performed By: #### L [id number] #### [facility] [address] [place] [address] NRBC (PER 100 WBCS) BY AUTOMATED COUNT 0.0 % Normal 0 [facility] Comment on above: Performed By: #### L [id number] #### [facility] ([facility]) [address] [place] [address] PLATELETS (10*3/UL) IN BLOOD AUTOMATED COUNT 148 10*3/uL Low 150-400 [facility] Comment on above: Performed By: #### L [id number] #### [facility] ([facility]) [address] [place] [address] RBC (Bld) [#/Vol] 5.42 10*6/uL Normal 4.20-5.70 [facility] Comment on above: Performed By: #### L [id number] #### [facility] ([facility]) [address] [facility] [address] WBC (Bld) [#/Vol] 5.95 10*3/uL Normal 4.00-10.60 [facility] Comment on above: Performed By: #### L [id number] #### [facility] ([facility]) [address] [facility] [place] [address] CHLAMYDIA TRACHOMATIS AND NE ISSERIA GONORRHEA, TMAon 05-07-2024 CHLAMYDIA TRACHOMATIS DNA PROBE (PRESENCE) IN UNSP SPEC Negative Normal Negative [facility] Comment on above: Result Comment: No C hlamydia trachomatis rRNA Detected. The Aptima Combo 2 Assay is a FDA approved target amplification nucleic acid probe test that utilizes target capture for the in vitro qualitative detection and differentiation of ribosomal RNA (rRNA) from Chlamydia trachomatis (CT) and/or Neisseria gonorrhoeae (GC) to aid the diagnosis of chlamydial and/or gonococcal urogenital disease using the Pelham System. The Aptima Combo 2 Assay involves target capture, target amplification by Digital Cartographer-Mediated Amplification (TMA), and the detection of the amplification products (amplicon) by the Hybridization Protection Assay (HPA). The internal process controls of the Pelham System monitor the target capture, amplification, and detection steps of the assay, this is not intended to control for sampling adequacy. Performed By: #### L [id number] ####[facility] ([facility])[address] [place] [address] NEISSERIA GONORRHOEAE DNA PROBE (PRESENCE) IN UNSP SPEC Negative Normal Negative [facility] Comment on above: Result Comment: No N eisseria gonorrhoeae rRNA Detected. The Aptima Combo 2 Assay is a FDA approved target amplification nucleic acid probe test that utilizes target capture for the in vitro qualitative detection and differentiation of ribosomal RNA (rRNA) from Chlamydia trachomatis (CT) and/or Neisseria gonorrhoeae (GC) to aid the diagnosis of chlamydial and/or gonococcal urogenital disease using the Pelham System. The Aptima Combo 2 Assay involves target capture, target amplification by Digital Cartographer-Mediated Amplification (TMA), and the detection of the amplification products (amplicon) by the Hybridization Protection Assay (HPA). The internal process controls of the Pelham System monitor the target capture, amplification, and detection steps of the assay, this is not intended to control for sampling adequacy. Performed By: #### L [id number] ####[facility] ([facility])[address] [place] [address] COMPREHENSIVE METABOLIC PANE Azam 05-07-2024 Albumin [Mass/Vol] 4.6 g/dL Normal 3.5-5.7 [facility] Comment on above: Performed By: #### L [id number] #### [facility] ([facility]) [address] [place] [address] ALP [Catalytic activity/Vol] 66 U/L Normal 34-104 [facility] Comment on above: Performed By: #### L [id number] #### [facility] ([facility]) [address] [place] [address] ALT [Catalytic activity/Vol] 14 U/L Normal 7-52 [facility] Comment on above: Performed By: #### L [id number] #### [facility] ([facility]) [address] [facility] [place] [address] Anion gap [Moles/Vol] 13 mmol/L Normal 7-20 [facility] Comment on above: Performed By: #### L [id number] #### [facility] ([facility]) [address] [place] [address] AST [Catalytic activity/Vol] 16 U/L Normal 13-39 [facility] Comment on above: Performed By: #### L [id number] #### [facility] ([facility]) [address] [place] [address] Bilirubin [Mass/Vol] 0.6 mg/dL Normal 0.3-1.0 [facility] Comment on above: Performed By: #### L [id number] #### [facility] ([facility] [address] [place] [address] Calcium [Mass/Vol] 10.0 mg/dL Normal 8.6-10.3 [facility] Comment on above: Performed By: #### L [id number] #### [facility] [address] [place] [address] Chloride [Moles/Vol] 106 mmol/L Normal 98-107 [facility] Comment on above: Performed By: #### L [id number] #### [facility] [address] [place] [address] CO2 [Moles/Vol] 24 mmol/L Normal 21-31 [facility] Comment on above: Performed By: #### L [id number] #### [facility] [address] [place] [address] Creatinine [Mass/Vol] 1.70 mg/dL High 0.70-1.30 [facility] Comment on above: Performed By: #### L [id number] #### [facility] ([facility]) [address] [place] [address] GLOMERULAR FILTRATION RATE ML/MIN/1.73 SQ M.PREDICTED 42.6 mL/min/1.73m*2 Low >60.0 [facility] Comment on above: Result Comment: [facility]???s estimated glomerular filtration rate (eGFR) will [...] individuals. Performed By: #### L [id number] #### [facility] ([facility]) [address] [place] [address] Glucose [Mass/Vol] 115 mg/dL High 70-100 [facility] Comment on above: Performed By: #### L [id number] #### [facility] ([facility]) [address] [place] [address] Potassium [Moles/Vol] 4.5 mmol/L Normal 3.5-5.1 [facility] Comment on above: Performed By: #### L [id number] #### [facility] ([facility]) [address] [place] [address] Protein [Mass/Vol] 7.6 g/dL Normal 6.0-8.3 [facility] Comment on above: Performed By: #### L [id number] #### [facility] ([facility]) [address] [place] [address] Sodium [Moles/Vol] 138 mmol/L Normal 136-145 [facility] Comment on above: Performed By: #### L [id number] #### [facility] ([facility]) [address] [facility] [place] [address] Urea nitrogen [Mass/Vol] 26 mg/dL High 7-25 [facility] Comment on above: Performed By: #### L [id number] #### [facility] ([facility]) [address] [facility] [place] [address] UREA NITROGEN/CREATINI NE (MASS RATIO) IN SER/PLAS 15.3 Normal [facility] Comment on above: Performed By: #### L [id number] #### [facility] ([facility]) [address] [place] [address] HEMOGLOBIN A1Con 05-07-2024 Glucose [Mass/Vol] 151 mg/dL Normal [facility] Comment on above: Performed By: #### L [id number] #### [facility] ([facility]) [address] [facility] [place] [address] HbA1c (Bld) [Mass fraction] 6.9 % High 4.0-6.0 [facility] Comment on above: Performed By: #### L [id number] #### [facility] ([facility]) [address] [place] [address] LIPID PANELon 05-07-2024 CHOL/HDL 3.4 mg/dL Normal [facility] Comment on above: Performed By: #### L [id number] #### [facility] ([facility]) [address] [place] [address] Cholesterol [Mass/Vol] 151 mg/dL Normal 120-200 [facility] Comment on above: Performed By: #### L [id number] #### [facility] ([facility]) [address] [place] [address] Magnesium [Mass/Vol] 210 mg/dL High 40-149 [facility] Comment on above: Result Comment: TRIG LYCERIDE REFERENCE RANGE: 20 YEARS AND OLDER CARDIOVASCULAR RISK LESS THAN 150 mg/dL LOW RISK 150 TO 199 mg/dL BORDERLINE RISK 200 mg/dL AND GREATER HIGH RISK Performed By: #### L [id number] #### [facility] ([facility]) [address] [place] [address] Magnesium [Mass/Vol] 65 mg/dL Normal 0-160 [facility] Comment on above: Performed By: #### L [id number] #### [facility] ([facility]) [address] [place] [address] Magnesium [Mass/Vol] 44 mg/dL Normal 23-92 [facility] Comment on above: Performed By: #### L [id number] #### [facility] ([facility]) [address] [facility] [place] [address] NON HDL CHOL. (LDL+VLDL) 107 Normal [facility] Comment on above: Performed By: #### L [id number] #### [facility] [address] [place] [address] TOTAL VLDL-C 42 mg/dL High 0-40 [facility] Comment on above: Performed By: #### L [id number] #### [facility] ([facility]) [address] [place] [address] Labon 05-07-2024 Lab [id number] Grover Contrerassheela Jones 1955 M Date Provider Department Center 05/07/2024 2245-[facility] OPD LAB RESOURCE [facility] OPD [facility] C Family History Problem Relation Age of Onset Heart attack Father Other Sister Heart attack Brother Other Brother Family Status - Relation Status Age at Father Sister Brother Normal [facility] Office Visiton 05-07-2024 Follow-up visit [id number] BenParish Jones 1955 M Provider Department Center 05/07/2024 281-SUSHILA TANNER [facility] Family History Problem Relation Age of Onset Heart attack Father Other Sister Heart attack Brother Other Brother Family Status - Relation Status Age at Father Sister Brother Level of Service:10860 [place] OFFICE/OUTPATIENT ESTABLISHED MOD MDM 30 MIN () Reason for Visit and Comments: HIV infection, unspecified symptom status (CMS/HCC) [Other] Health Maintenance [619] Med Management [[id number]] Normal [facility] T CELL SUBSET ANALYSISon CD3 67.99 % Normal 65.00-90.00 [facility] Comment on above: Performed By: #### L [id number] #### [facility] ([facility]) [address] [place] [address] CD3 ABSOLUTE 1311 cells/mm3 Normal 760-2130 [facility] Comment on above: Performed By: #### L [id number] #### [facility] ([facility]) [address] [facility] [place] [address] CD4 30.65 % Low 40.00-70.00 [facility] Comment on above: Performed By: #### L [id number] #### [facility] ([facility]) [address] [place] [address] CD4 ABSOLUTE 591 cells/mm3 Normal 430-1185 [facility] Comment on above: Performed By: #### L [id number] #### [facility] ([facility]) [address] [place] [address] CD4:CD8 0.85 Low 1.00-4.00 [facility] Comment on above: Performed By: #### L [id number] #### [facility] ([facility]) [address] [facility] [place] [place] [address] CD8 35.91 % Normal 15.00-40.00 [facility] Comment on above: Performed By: #### L [id number] #### [facility] [address] [place] [address] CD8 ABSOLUTE 692 cells/mm3 Normal 180-865 [facility] Comment on above: Performed By: #### L [id number] #### [facility] [address] [place] [address] Refillon 05-06-2024 Refill [id number] Parish Contreras 1955 [facility] Provider Department Center 05/06/2024 SUSHILA HAND [facility] Family History Problem Relation Age of Onset Heart attack Father Other Sister Heart attack Brother Other Brother Family Status - Relation Status Age at Father Sister Brother Reason for Visit and Comments: Med Refill [[id number]] Normal [facility] Office Visiton 04-17-2024 Follow-up visit [id number] Parish Contreras 1955 Provider Department Center 04/17/2024 Nadia-ALLYSON BOYD [facility] Family History Problem Relation Age of Onset Heart attack Father Other Sister Heart attack Brother Other Brother Family Status - Relation Status Age at Father Sister Brother Level of Service:50874 [place] OFFICE/OUTPATIENT ESTABLISHED LOW MDM 20 MIN Normal [facility] Refillon 03-06-2024 Refill [id number] Parish Contreras 1955 M Date Provider Department Center 03/06/2024 281-SUSHILA TANNER [facility] Family History Problem Relation Age of Onset Heart attack Father Other Sister Heart attack Brother Other Brother Family Status - Relation Status Age at Father Sister Brother Reason for Visit and Comments: Med Refill [[id number]] Normal [facility] Refillon 01-08-2024 Refill [id number] Grover Contrerassheela Jones 1955 M Date Provider Department Center 01/08/2024 SUSHILA HAND A [facility] Family History Problem Relation Age of Onset Heart attack Father Other Sister Heart attack Brother Other Brother Family Status - Relation Status Age at Father Sister Brother Reason for Visit and Comments: Med Refill [[id number]] Normal [facility] 36on 12-12-2023 36 Last visit 11/21/2023 No follow up appt 11/21/2023 creat 2.05, cd4 559, VL not det No eligibility Normal [facility] Refillon 12-12-2023 Refill [id number] BenParish Jones 1955 M Date Provider Department Center 12/12/2023 SUSHILA HAND A [facility] Family History Problem Relation Age of Onset Heart attack Father Other Sister Heart attack Brother Other Brother Family Status - Relation Status Age at Father Sister Brother Reason for Visit and Comments: Med Refill [[id number]] Normal [facility] CBC WITH AUTO DIFFERENTIALon 11-21-2023 Basophils (Bld) [#/Vol] 0.02 10*3/uL Normal 0.00-0.20 [facility] Comment on above: Performed By: #### L [id number] ####[facility] ([facility])[address] [place] [address] Basophils/100 WBC (Bld) 0.4 % Normal 0.0-1.0 [facility] Comment on above: Performed By: #### L [id number] ####[facility] ([facility])[address] [place] [address] Eosinophils (Bld) [#/Vol] 0.07 10*3/uL Normal 0.00-0.50 [facility] Comment on above: Performed By: #### L [id number] ####[facility] ([facility])[address] [place] [address] Eosinophils/100 WBC (Bld) 1.3 % Normal 0.0-6.0 [facility] Comment on above: Performed By: #### L [id number] ####[facility] [place] [address] Erythrocyte distribution width (RBC) [Ratio] 13.2 % Normal 11.5-15.0 [facility] Comment on above: Performed By: #### L [id number] ####[facility] ([facility])[address] [place] [address] ERYTHROCYTE MEAN CORPUSCULAR HEMOGLOBIN CONCENTRATION (G/DL) BY AUTOMATED 33.9 g/dL Normal 32.0-35.0 [facility] Comment on above: Performed By: #### L [id number] ####[facility] ([facility])[address] [place] [address] Hematocrit (Bld) [Volume fraction] 47.8 % Normal 39.0-55.0 [facility] Comment on above: Performed By: #### L [id number] ####[facility] ([facility])[address] [place] [address] Hemoglobin (Bld) [Mass/Vol] 16.2 g/dL Normal 13.0-17.0 [facility] Comment on above: Performed By: #### L [id number] ####[facility] ([facility])[address] [place] [address] Immature granulocytes (Bld) [#/Vol] 0.01 10*3/uL Normal 0.00-0.20 [facility] [facility] Comment on above: Performed By: #### L [id number] ####[facility] ([facility])[address] [place] [address] Immature granulocytes/100 WBC (Bld) 0.2 % Normal 0.0-1.0 [facility] Comment on above: Performed By: #### L [id number] ####[facility] ([facility])[address] [place] [address] IMMATURE PLATELET FRACTION % 2.5 % Normal 0.8-6.3 [facility] Comment on above: Performed By: #### L [id number] ####[facility] ([facility])[address] [place] [address] Lymphocytes (Bld) [#/Vol] 1.82 10*3/uL Normal 1.20-4.00 [facility] Comment on above: Performed By: #### L [id number] ####[facility] ([facility])[address] [place] [address] Lymphocytes/100 WBC (Bld) 34.4 % Normal 20.0-45.0 [facility] Comment on above: Performed By: #### L [id number] ####[facility] ([facility])[address] [place] [address] MCH (RBC) [Entitic mass] 31.1 pg Normal 27.0-33.0 [facility] Comment on above: Performed By: #### L [id number] ####[facility] ([facility])[address] [place] [address] MCV (RBC) [Entitic vol] 91.7 fL Normal 82.0-98.0 [facility] Comment on above: Performed By: #### L [id number] ####[facility] ([facility])[address] [place] [address] Monocytes (Bld) [#/Vol] 0.38 10*3/uL Normal 0.10-1.00 [facility] Comment on above: Performed By: #### L [id number] ####[facility] ([facility])[address] [place] [address] Monocytes/100 WBC (Bld) 7.2 % Normal 5.0-12.0 [facility] Comment on above: Performed By: #### L [id number] ####[facility] ([facility])[address] [place] [address] Neutrophils (Bld) [#/Vol] 2.99 10*3/uL Normal 1.60-7.60 [facility] Comment on above: Performed By: #### L [id number] ####[facility] ([facility])[address] [place] [address] Neutrophils/100 WBC (Bld) 56.5 % Normal 40.0-72.0 [facility] Comment on above: Performed By: #### L [id number] ####[facility] ([facility])[address] [place] [address] NRBC (PER 100 WBCS) BY AUTOMATED COUNT 0.0 % Normal 0 [facility] Comment on above: Performed By: #### L [id number] ####[facility] ([facility])[address] [place] [address] PLATELETS (10*3/UL) IN BLOOD AUTOMATED COUNT 123 10*3/uL Low 150-400 [facility] Comment on above: Performed By: #### L [id number] ####[facility] ([facility])[address] [place] [address] RBC (Bld) [#/Vol] 5.21 10*6/uL Normal 4.20-5.70 [facility] Comment on above: Performed By: #### L [id number] ####[facility] ([facility])[address] [place] [address] WBC (Bld) [#/Vol] 5.29 10*3/uL Normal 4.00-10.60 [facility] Comment on above: Performed By: #### L [id number] ####[facility] ([facility])[address] [facility] [address] CHLAMYDIA TRACHOMATIS AND NE ISSERIA GONORRHEA, TMAon 11-21-2023 CHLAMYDIA TRACHOMATIS DNA PROBE (PRESENCE) IN UNSP SPEC Negative Normal Negative [facility] Comment on above: Result Comment: No C hlamydia trachomatis rRNA Detected. The Aptima Combo 2 Assay is a FDA approved target amplification nucleic acid probe test that utilizes target capture for the in vitro qualitative detection and differentiation of ribosomal RNA (rRNA) from Chlamydia trachomatis (CT) and/or Neisseria gonorrhoeae (GC) to aid the diagnosis of chlamydial and/or gonococcal urogenital disease using the Pelham System. The Aptima Combo 2 Assay involves target capture, target amplification by Digital Cartographer-Mediated Amplification (TMA), and the detection of the amplification products (amplicon) by the Hybridization Protection Assay (HPA). The internal process controls of the Pelham System monitor the target capture, amplification, and detection steps of the assay, this is not intended to control for sampling adequacy. Performed By: #### L [id number] #### [facility] ([facility]) [address] [place] [address] NEISSERIA GONORRHOEAE DNA PROBE (PRESENCE) IN UNSP SPEC Negative Normal Negative [facility] Comment on above: Result Comment: No N eisseria gonorrhoeae rRNA Detected. The Aptima Combo 2 Assay is a FDA approved target amplification nucleic acid probe test that utilizes target capture for the in vitro qualitative detection and differentiation of ribosomal RNA (rRNA) from Chlamydia trachomatis (CT) and/or Neisseria gonorrhoeae (GC) to aid the diagnosis of chlamydial and/or gonococcal urogenital disease using the Pelham System. The Aptima Combo 2 Assay involves target capture, target amplification by Digital Cartographer-Mediated Amplification (TMA), and the detection of the amplification products (amplicon) by the Hybridization Protection Assay (HPA). The internal process controls of the Pelham System monitor the target capture, amplification, and detection steps of the assay, this is not intended to control for sampling adequacy. Performed By: #### L [id number] #### [facility] ([facility]) [address] [place] [address] COMPREHENSIVE METABOLIC PANE Azam 11-21-2023 Albumin [Mass/Vol] 4.7 g/dL Normal 3.5-5.7 [facility] Comment on above: Performed By: #### L [id number] ####[facility] ([facility])[address] [place] [address] ALP [Catalytic activity/Vol] 62 U/L Normal 34-104 [facility] Comment on above: Performed By: #### L [id number] ####[facility] ([facility])[address] [place] [address] ALT [Catalytic activity/Vol] 17 U/L Normal 7-52 [facility] Comment on above: Performed By: #### L [id number] ####[facility] ([facility])[address] [place] [address] Anion gap [Moles/Vol] 11 mmol/L Normal 7-20 [facility] Comment on above: Performed By: #### L [id number] ####[facility] [place] [address] AST [Catalytic activity/Vol] 16 U/L Normal 13-39 [facility] Comment on above: Performed By: #### L [id number] ####[facility] [place] [address] Bilirubin [Mass/Vol] 0.6 mg/dL Normal 0.3-1.0 [facility] Comment on above: Performed By: #### L [id number] ####[facility] ([facility])[address] [place] [address] Calcium [Mass/Vol] 9.9 mg/dL Normal 8.6-10.3 [facility] Comment on above: Performed By: #### L [id number] ####[facility] [place] [address] Chloride [Moles/Vol] 104 mmol/L Normal 98-107 [facility] Comment on above: Performed By: #### L [id number] ####[facility] ([facility])[address] [place] [address] CO2 [Moles/Vol] 27 mmol/L Normal 21-31 [facility] Comment on above: Performed By: #### L [id number] ####[facility] ([facility])[address] [place] [address] Creatinine [Mass/Vol] 2.05 mg/dL High 0.70-1.30 [facility] Comment on above: Performed By: #### L [id number] ####[facility] ([facility] [place] [address] GLOMERULAR FILTRATION RATE ML/MIN/1.73 SQ M.PREDICTED 34.2 mL/min/1.73m*2 Low >60.0 [facility] Comment on above: Result Comment: [facility]???s estimated glomerular filtration rate (eGFR) will [...] of individuals. Performed By: #### L [id number] ####[facility] ([facility])[address] [place] [address] Glucose [Mass/Vol] 115 mg/dL High 70-100 [facility] Comment on above: Performed By: #### L [id number] ####[facility] ([facility])[address] [place] [address] Potassium [Moles/Vol] 4.9 mmol/L Normal 3.5-5.1 [facility] Comment on above: Performed By: #### L [id number] ####[facility] ([facility])[address] [place] [address] Protein [Mass/Vol] 7.6 g/dL Normal 6.0-8.3 [facility] Comment on above: Performed By: #### L [id number] ####[facility] ([facility])[address] [place] [address] Sodium [Moles/Vol] 137 mmol/L Normal 136-145 [facility] Comment on above: Performed By: #### L [id number] ####[facility] [place] [address] Urea nitrogen [Mass/Vol] 30 mg/dL High 7-25 [facility] Comment on above: Performed By: #### L [id number] ####[facility] ([facility])[address] [place] [facility] [address] UREA NITROGEN/CREATINI NE (MASS RATIO) IN SER/PLAS 14.6 Normal [facility] Comment on above: Performed By: #### L [id number] ####[facility] ([facility])[address] [place] [address] DIGOXIN LEVELon 11-21-2023 DIGOXIN (NG/ML) IN SER/PLAS <0.3 Low 0.7-2 [facility] Comment on above: Performed By: #### L [id number] #### [facility] ([facility]) [address] [place] [address] HEMOGLOBIN A1Con 11-21-2023 Glucose [Mass/Vol] 189 mg/dL Normal [facility] Comment on above: Performed By: #### L [id number] #### [facility] ([facility]) [address] [place] [address] HbA1c (Bld) [Mass fraction] 8.2 % High 4.0-6.0 [facility] Comment on above: Performed By: #### L [id number] #### [facility] ([facility]) [address] [place] [address] LIPID PANELon 11-21-2023 CHOL/HDL 3.8 mg/dL Normal [facility] Comment on above: Performed By: #### L [id number] #### [facility] ([facility]) [address] [place] [address] Cholesterol [Mass/Vol] 140 mg/dL Normal 120-200 [facility] Comment on above: Performed By: #### L [id number] #### [facility] ([facility]) [address] [place] [address] Magnesium [Mass/Vol] 207 mg/dL High 40-149 [facility] Comment on above: Result Comment: TRIG LYCERIDE REFERENCE RANGE: 20 YEARS AND OLDER CARDIOVASCULAR RISK LESS THAN 150 mg/dL LOW RISK 150 TO 199 mg/dL BORDERLINE RISK 200 mg/dL AND GREATER HIGH RISK Performed By: #### L [id number] #### [facility] ([facility]ER) [address] [place] [address] Magnesium [Mass/Vol] 62 mg/dL Normal 0-160 [facility] Comment on above: Performed By: #### L [id number] #### [facility] [address] [place] [address] Magnesium [Mass/Vol] 37 mg/dL Normal 23-92 [facility] Comment on above: Performed By: #### L [id number] #### [facility] ([facility]) [address] [place] [address] NON HDL CHOL. (LDL+VLDL) 103 Normal [facility] Comment on above: Performed By: #### L [id number] #### [facility] ([facility]) [address] [place] [address] TOTAL VLDL-C 41 mg/dL High 0-40 [facility] Comment on above: Performed By: #### L [id number] #### [facility] ([facility]) [address] [place] [address] Labon 11-21-2023 Lab [id number] Parish Contreras 1955 M Date Provider Department Center 11/21/2023 2245-[facility] LAB RESOURCE [facility] [place] [facility] Family History Problem Relation Age of Onset Heart attack Father Other Sister Heart attack Brother Other Brother Family Status - Relation Status Age at Father Sister Brother Normal [facility] Office Visiton 11-21-2023 Follow-up visit [id number] Parish Contreras 1955 M Date Provider Department Center 11/21/2023 281-SUSHILA TANNER [facility] Family History Problem Relation Age of Onset Heart attack Father Other Sister Heart attack Brother Other Brother Family Status - Relation Status Age at Father Sister Brother Level of Service:05830 [place] OFFICE/OUTPATIENT ESTABLISHED MOD MDM 30 MIN Reason for Visit and Comments: HIV Positive/AIDS [109] Health Maintenance [619] Normal [facility] RPRon 11-21-2023 REAGIN AB PRESENCE IN SERUM BY RPR Non-Reactive Normal Nonreactive [facility] Comment on above: Performed By: #### L [id number] #### [facility] ([facility]) [address] [place] [address] T CELL SUBSET ANALYSISon CD3 70.21 % Normal 65.00-90.00 [facility] Comment on above: Performed By: #### L [id number] #### [facility] ([facility]) [address] [place] [address] CD3 ABSOLUTE 1278 cells/mm3 Normal 760-2130 [facility] Comment on above: Performed By: #### L [id number] #### [facility] ([facility]) [address] [place] [address] CD4 30.70 % Low 40.00-70.00 [facility] Comment on above: Performed By: #### L [id number] #### [facility] ([facility]) [address] [place] [address] CD4 ABSOLUTE 559 cells/mm3 Normal 430-1185 [facility] Comment on above: Performed By: #### L [id number] #### [facility] ([facility]) [address] [place] [address] CD4:CD8 0.81 Low 1.00-4.00 [facility] Comment on above: Performed By: #### L [id number] #### [facility] ([facility]) [address] [place] [address] CD8 37.84 % Normal 15.00-40.00 [facility] Comment on above: Performed By: #### L [id number] #### [facility] ([facility]) [address] [place] [address] CD8 ABSOLUTE 689 cells/mm3 Normal 180-865 [facility] Comment on above: Performed By: #### L [id number] #### [facility] ([facility]) [address] [place] [address] Office Visiton 10-24-2023 Follow-up visit [id number] Parish Contreras 1955 M Date Provider Department Center 10/24/2023 1596-LANERadha DORA [facility] Family History Problem Relation Age of Onset Heart attack Father Other Sister Heart attack Brother Other Brother Family Status - Relation Status Age at Father Sister Brother Level of Service:96754 [place] OFFICE/OUTPATIENT ESTABLISHED MOD MDM 30 MIN Normal [facility] Refillo 09-20-2023 Refill [id number] Parish Contreras 1955 M Date Provider Department Center 09/20/2023 281-GEORGEANNIKAU SUSHILA A [facility] INF [facility] Family History Problem Relation Age of Onset Heart attack Father Other Sister Heart attack Brother Other Brother Family Status - Relation Status Age at Father Sister Brother Reason for Visit and Comments: Med Refill [[id number]] Normal [facility] Refillo 08-21-2023 Refill [id number] Parish Contreras 1955 Date Provider Department Center 08/21/2023 281-SNEHA TANNERIU A [facility] Family History Problem Relation Age of Onset Heart attack Father Other Sister Heart attack Brother Other Brother Family Status - Relation Status Age at Father Sister Brother Reason for Visit and Comments: Med Refill [[id number]] Normal [facility] Refillon 07-04-2023 Refill [id number] Parish Contreras 1955 Date Provider Department Center 07/04/2023 281-SNEHA TANNERIU A [facility] Family History Problem Relation Age of Onset Heart attack Father Other Sister Heart attack Brother Other Brother Family Status - Relation Status Age at Father Sister Brother Reason for Visit and Comments: Med Refill [[id number]] [facility] Ambulatory Visit Summaryon 0 02-08-2023 Ambulatory Visit Summary PARISH CONTRERAS :1955 Visit Date:02/08/2023 Ambulatory Visit Instructions Your Diagnosis Personal history of colonic polyps Your Care Team Attending Physician - ROSITA LANDERSO, Jose He Primary Care Physician - Jonas Murillo MD Referring Physician - Jonas Murillo MD This [...] A-fib Personal history of colonic polyps Normal [facility] Consultation Noteon 02-08-20 23 Consultation Note [id number]:127 Normal [facility] Physician Referralon 023 Physician Referral [id number]:127 Normal [facility] CA 19-9on 09-15-2022 CA 19-9 18 U/mL Normal 0-35 [facility] Comment on above: Result Comment: [facility] Electrochemiluminescence Immunoassay (ECLIA) . Values obtained with different assay methods or kits cannot be used interchangeably. Results cannot be interpreted as absolute evidence of the presence or absence of malignant disease. Performed By: #### C A 19,9 ####[facility] [address] [place] [address]Dr. Jose Gonsales CEAon 09-15-2022 CEA 0.8 ng/mL Normal 0.0-4.7 [facility] Comment on above: Result Comment: Nons mokers <3.9 Smokers <5.6 . [employer] [employer] Electrochemiluminescence Immunoassay (ECLIA) . Values obtained with different assay methods or kits cannot be used interchangeably. Results cannot be interpreted as absolute evidence of the presence or absence of malignant disease. Performed By: #### H PYLLC #### [facility] [address] [place] [address] Dr. Jose Gonsalse H PYLORI ANTIBODY IGGon 08-26 H. PYLORI IGG ABS 0.23 Index Value Normal 0.00-0.79 [facility] Comment on above: Result Comment: Nega tive <0.80 Equivocal 0.80 - 0.89 Positive >0.89 Performed By: #### H PYLLC #### [facility] [address] [place] [address] Dr. Jose Gonsales AMMONIAon 09-14-2022 Ammonia (P) [Moles/Vol] 13 umol/L Normal 11-32 [facility] Comment on above: Performed By: #### P TTHEP #### [facility] [address] [place] [address] Dr. Jose Gonsales AMYLASEon 09-14-2022 Amylase [Catalytic activity/Vol] 47 U/L Normal 25-115 [facility] Comment on above: Performed By: #### P TTHEP #### [facility] [address] [place] [address] Dr. Jose Gonsales CBC AUTO DIFFon 09-14-2022 BASO # 0.0 103/ul Normal 0.0-0.1 [facility] Comment on above: Performed By: #### C BC ####[facility] [address] [place] [id number]. Jose Gonsales Basophils/100 WBC (Bld) 0.2 % Normal 0.2-2.0 [facility] Comment on above: Performed By: #### C BC ####[facility] [address] [place], [place] [address]Dr. Jose Gonsales EO # 0.2 103/ul Normal 0.0-0.7 [facility] Comment on above: Performed By: #### C BC ####[facility] [address] [place], [place] [address]Dr. Jose Dru Eosinophils/100 WBC (Bld) 3.4 % Normal 0.9-7.0 [facility] Comment on above: Performed By: #### C BC ####[facility] [address] [place], [place] [address]Dr. Dorindaedward Gonsales Erythrocyte distribution width (RBC) [Ratio] 13.7 % Normal 11.0-15.0 [facility] Comment on above: Performed By: #### C BC ####[facility] [address] [place], [place] [address]Dr. Dorindaedward Gonsales Hematocrit (Bld) [Volume fraction] 44.0 % Normal 42.0-54.0 [facility] Comment on above: Performed By: #### C BC ####[facility] [address] [place], [place] [address]Dr. Jose Gonsales Hemoglobin (Bld) [Mass/Vol] 14.4 g/dL Normal 14.0-18.0 [facility] Comment on above: Performed By: #### C BC ####[facility] [address] [place], [place] [address]Dr. Jose Gonsales IG # 0.01 10e3/ul Normal 0.00-0.03 [facility] Comment on above: Performed By: #### C BC ####[facility] [address] [place], [place] [address]Dr. Dorindaedward Gonsales IG % 0.2 % Normal 0.0-0.5 [facility] Comment on above: Performed By: #### C BC ####[facility] [address] [place], [place] [address]DrLuci Gonsales LYMPH # 1.4 103/ul Normal 1.2-3.8 [facility] Comment on above: Performed By: #### C BC ####[facility] [address] [place] [id number]. Dorindaedward Gonsales Lymphocytes/100 WBC (Bld) 31.6 % Normal 20.5-60.0 [facility] Comment on above: Performed By: #### C BC ####[facility] [address] [place] [id number] Gonsales MANUAL DIFF REQ NO Normal [facility] Comment on above: Performed By: #### C BC ####[facility] [address] [place] [id number]. Jose Gonsales MCH (RBC) [Entitic mass] 29.8 pg Normal 25.9-34.0 [facility] Comment on above: Performed By: #### C BC ####[facility] [address] [place], [place] [address]Dr. Jose Gonsales MCHC (RBC) [Mass/Vol] 32.7 g/dL Normal 29.9-35.2 [facility] Comment on above: Performed By: #### C BC ####[facility] [address] [place] [id number] Gonsales MCV (RBC) [Entitic vol] 91.1 fL Normal 80.0-94.0 [facility] Comment on above: Performed By: #### C BC ####[facility] [address] [place] [address]Dr. Jose Gonsales MONO # 0.4 103/ul Normal 0.3-0.8 [facility] Comment on above: Performed By: #### C BC ####[facility] [address] [place], [place] [address]DrLuci Gonsales Monocytes/100 WBC (Bld) 8.4 % Normal 1.7-12.0 [facility] Comment on above: Performed By: #### C BC ####[facility] [address] [place], [place] [id number] Gonsales NEUT # 2.5 103/ul Normal 1.4-6.5 [facility] Comment on above: Performed By: #### C BC ####[facility] [address] [place] [address]Dr. Jose Gonsales Neutrophils/100 WBC (Bld) 56.2 % Normal 43.0-75.0 [facility] Comment on above: Performed By: #### C BC ####[facility] [address] [place] [address]Dr. Jose Gonsales Platelet mean volume (Bld) [Entitic vol] 10.4 fL Normal 9.5-13.5 [facility] Comment on above: Performed By: #### C BC ####[facility] [address] [place] [address]Dr. Jose Gonsales PLT 122 103/ul Critically low 150-450 [facility] Comment on above: Performed By: #### C BC ####[facility] [address] [place] [address]Dr. Jose Gonsales RBC 4.83 106/ul Normal 4.70-6.10 [facility] Comment on above: Performed By: #### C BC ####[facility] [address] [place], [place] [address]Dr. Jose Gonsales WBC 4.4 103/ul Normal 4.0-11.0 [facility] Comment on above: Performed By: #### C BC ####[facility] [address] [place] [address]Dr. Jose Gonsales FREE THYROXINE INDEX T7on FTI 1.86 Normal 1.30-4.50 [facility] Comment on above: Performed By: #### C MP, T7, LIPA, TSH, YFN ####[facility] [address] [place] [address]Dr. Jose Gonsales T3U 35.0 % Normal 33.0-40.0 [facility] Comment on above: Performed By: #### C MP, T7, LIPA, TSH, YFN ####[facility] [address] [place] [address]Dr. Jose Gonsales T4 [Mass/Vol] 5.30 ug/dL Normal 4.50-12.10 [facility] Comment on above: Performed By: #### C MP, T7, LIPA, TSH, YFN ####[facility] [address] [place] [address]Dr. Jose Gonsales IRONon 09-14-2022 Iron [Mass/Vol] 47.0 ug/dL Critically low 65.0-175.0 [facility] Comment on above: Performed By: #### P TTHEP #### [facility] [address] [place] [address] [address] Jose Gonsales LIPASEon 09-14-2022 Lipase [Catalytic activity/Vol] 182.0 U/L Normal 73.0-393.0 [facility] Comment on above: Performed By: #### P TTHEP #### [facility] [address] [place] [address] Dr. Jose Gonsales PROF 14(COMP METB)on 022 Albumin [Mass/Vol] 3.5 g/dL Normal 3.4-5.0 [facility] Comment on above: Performed By: #### C MP, T7, LIPA, TSH, YFN ####[facility] [address] [place] [address]Dr. Jose Gonsales Albumin/Globulin [Mass ratio] 0.9 {ratio} Normal [facility] Comment on above: Performed By: #### C MP, T7, LIPA, TSH, YFN ####[facility] [address] [place] [address]Dr. Jose Gonsales ALP [Catalytic activity/Vol] 64 U/L Normal 46-116 [facility] Comment on above: Performed By: #### C MP, T7, LIPA, TSH, YFN ####[facility] [address] [place] [address]Dr. Jose Gonsales ALT [Catalytic activity/Vol] 16 U/L Normal 16-63 [facility] Comment on above: Performed By: #### C MP, T7, LIPA, TSH, YFN ####[facility] [address] [place] [address]Dr. Jose Gonsales Anion gap [Moles/Vol] 9.6 mmol/L Normal [facility] Comment on above: Performed By: #### C MP, T7, LIPA, TSH, YFN ####[facility] [address] [place] [address]Dr. Jose Gonsales AST [Catalytic activity/Vol] 16 U/L Normal 15-37 [facility] Comment on above: Performed By: #### C MP, T7, LIPA, TSH, YFN ####[facility] [address] [place], [place] [address]Dr. Jose Gonsales Bilirubin [Mass/Vol] 0.3 mg/dL Normal 0.2-1.0 [facility] Comment on above: Performed By: #### C MP, T7, LIPA, TSH, YFN ####[facility] [address] [place], [place] [address]Dr. Jose Gonsales Calcium [Mass/Vol] 9.3 mg/dL Normal 8.5-10.1 [facility] Comment on above: Performed By: #### C MP, T7, LIPA, TSH, YFN ####[facility] [address] [place], [place] [address]Dr. Jose Gonsales Chloride [Moles/Vol] 104 mmol/L Normal 98-107 [facility] Comment on above: Performed By: #### C MP, T7, LIPA, TSH, YFN ####[facility] [address] [place], [place] [address]Dr. Jose Gonsales CO2 [Moles/Vol] 28.9 mmol/L Normal 21.0-32.0 [facility] Comment on above: Performed By: #### C MP, T7, LIPA, TSH, YFN ####[facility] [address] [place], [place] [address]Dr. Jose Gonsales Creatinine [Mass/Vol] 1.96 mg/dL Critically high 0.70-1.30 [facility] Comment on above: Performed By: #### C MP, T7, LIPA, TSH, YFN ####[facility] [address] [place], [place] [address]Dr. Jose Gonsales EGFR-AF VENEZUELAN 41 mL/min/1.73m2 Critically low >=60 [facility] Comment on above: Performed By: #### C MP, T7, LIPA, TSH, YFN ####[facility] [address] [place] [address]Dr. Jose Gonsales EGFR-NON AF VENEZUELAN 34 mL/min/1.73m2 Critically low >=60 [facility] Comment on above: Performed By: #### C MP, T7, LIPA, TSH, YFN ####[facility] [address] [place], [place] [address]Dr. Jose Gonsales Globulin (S) [Mass/Vol] 3.7 g/dL Normal [facility] Comment on above: Performed By: #### C MP, T7, LIPA, TSH, YFN ####[facility] [address] [place], [place] [address]Dr. Jose Gonsales Glucose [Mass/Vol] 161 mg/dL Critically high 74-106 [facility] Comment on above: Performed By: #### C MP, T7, LIPA, TSH, YFN ####[facility] [address] [place], [place] [address]Dr. Jose Gonsales Potassium [Moles/Vol] 4.5 mmol/L Normal 3.5-5.1 [facility] Comment on above: Performed By: #### C MP, T7, LIPA, TSH, YFN ####[facility] [address] [place], [place] [address]Dr. Jose Gonsales Protein [Mass/Vol] 7.2 g/dL Normal 6.4-8.2 [facility] Comment on above: Performed By: #### C MP, T7, LIPA, TSH, YFN ####[facility] [address] [place], [place] [address]Dr. Jose Gonsales Sodium [Moles/Vol] 138 mmol/L Normal 136-145 [facility] Comment on above: Performed By: #### C MP, T7, LIPA, TSH, YFN ####[facility] [address] [place], [place] [address]Dr. Jose Gonsales Urea nitrogen [Mass/Vol] 33.0 mg/dL Critically high 7.0-18.0 [facility] Comment on above: Performed By: #### C MP, T7, LIPA, TSH, YFN ####[facility] [address] [place], [place] [address]Fa. Jose Gonsales Urea nitrogen/Creatini ne [Mass ratio] 16.8 mg/mg Normal [facility] Comment on above: Performed By: #### C MP, T7, LIPA, TSH, YFN ####[facility] [address] [place], [place] [address]Wa. Jose Gonsales TSHon 09-14-2022 TSH 1.868 uIU/mL Normal 0.358-3.740 [facility] Comment on above: Performed By: #### C MP, T7, LIPA, TSH, YFN ####[facility] [address] [place], [place] [address]Xp. Jose Gonsales DIGOXINon 05-16-2022 DIG 0.6 ng/mL Critically low 0.9-2.0 [facility] Comment on above: Performed By: #### D IG #### [facility] [address] [place], [place] [address] Dr. Jose Gonsales Cardiovascular Lab Reporton 04-06-2022 Cardiovascular Lab Report [facility] Patient Name: Parish Contreras [facility] MR #: [id number] Physician: Eleno Ruvalcaba of [facility] Service Date: 04/05/2022 Division of Birthdate: 1955 Cardiology Room #: Adult Cardiovascular Services [place] [address] Cardiovascular Laboratory Report INDICATION: The patient is [...] has chronic kidney disease stage 3b since 2020 and follows with Nephrology. He was maximized [...] signed the consent. He was brought to organic lab worker in a fasting state. The right groin area was prepped and draped in usual fashion. Micropuncture technique and ultrasound guidance were used for access in the right common femoral artery. Inner cannula angiography was performed, followed by upsizing to the 5-Trinidadian x 11 cm sheath. Access was obtained using same technique in the right common femoral vein and a 6-Trinidadian x 11 cm sheath was placed. A 6-Trinidadian Miller catheter was used to right heart catheterization with measurement pressures of and calculation of cardiac output using the estimated [place] method Miller catheter was removed. Bilateral selective coronary angiography was then performed using 5-Trinidadian JL4 and JR4 diagnostic catheters. The JR4 diagnostic catheter was used to selectively engage the radial graft to the obtuse marginal branch #1, angiography was performed. The catheter was used to selectively engage the saphenous venous graft to the diagonal branch, angiography was performed. The catheter was exchanged to a 5-Trinidadian AR modified diagnostic catheter, which was used to selectively engage the saphenous venous graft to the PDA, angiography was performed. A 5-Trinidadian FABIANA catheter was used to selectively engage the left subclavian artery and then selectively engage the left internal mammary artery, angiography was performed. Catheter was removed. Procedure was concluded. A 6-Trinidadian Angio-Seal device was used for hemostasis in [...] 1. (more content not included)... Normal [facility] CBC AUTO DIFFon 04-01-2022 BASO # 0.0 103/ul Normal 0.0-0.1 [facility] Comment on above: Performed By: #### H PYLLC #### [facility] [address] [place] [address] [address] Jose Gonsales Basophils/100 WBC (Bld) 0.2 % Normal 0.2-2.0 [facility] Comment on above: Performed By: #### H PYLLC #### [facility] [address] [place] [address] [address] Jose Gonsales EO # 0.1 103/ul Normal 0.0-0.7 [facility] Comment on above: Performed By: #### H PYLLC #### [facility] [address] [place] [address] [address] Jose Gonsales Eosinophils/100 WBC (Bld) 2.2 % Normal 0.9-7.0 [facility] Comment on above: Performed By: #### H PYLLC #### [facility] [address] [place] [address] Dr. Jose Gonsales Erythrocyte distribution width (RBC) [Ratio] 12.8 % Normal 11.0-15.0 [facility] Comment on above: Performed By: #### H PYLLC #### [facility] [address] [place] [address] Dr. Jose Gonsales Hematocrit (Bld) [Volume fraction] 44.5 % Normal 42.0-54.0 [facility] Comment on above: Performed By: #### H PYLLC #### [facility] [address] [place] [address] Dr. Jose Gonsales Hemoglobin (Bld) [Mass/Vol] 14.5 g/dL Normal 14.0-18.0 [facility] Comment on above: Performed By: #### H PYLLC #### [facility] [address] [place] [address] Dr. Jose Gonsales IG # 0.01 10e3/ul Normal 0.00-0.03 [facility] Comment on above: Performed By: #### H PYLLC #### [facility] [address] [place] [address] Dr. Jose Gonsales IG % 0.2 % Normal 0.0-0.5 [facility] Comment on above: Performed By: #### H PYLLC #### [facility] [address] [place] [address] Dr. Jose Gonsales LYMPH # 1.8 103/ul Normal 1.2-3.8 [facility] Comment on above: Performed By: #### H PYLLC #### [facility] [address] [place] [address] Dr. Jose Gonsales Lymphocytes/100 WBC (Bld) 31.8 % Normal 20.5-60.0 [facility] Comment on above: Performed By: #### H PYLLC #### [facility] [address] [place] [address] Dr. Jose Gonsales MANUAL DIFF REQ NO Normal [facility] Comment on above: Performed By: #### H PYLLC #### [facility] [address] [place] [address] Dr. Jose Gonsales MCH (RBC) [Entitic mass] 30.6 pg Normal 25.9-34.0 [facility] Comment on above: Performed By: #### H PYLLC #### [facility] [address] [place] [address] Dr. Jose Gonsales MCHC (RBC) [Mass/Vol] 32.6 g/dL Normal 29.9-35.2 [facility] Comment on above: Performed By: #### H PYLLC #### [facility] [address] [place] [address] Dr. Jose Gonsales MCV (RBC) [Entitic vol] 93.9 fL Normal 80.0-94.0 [facility] Comment on above: Performed By: #### H PYLLC #### [facility] [address] [place] [address] Dr. Jose Gonsales MONO # 0.5 103/ul Normal 0.3-0.8 [facility] Comment on above: Performed By: #### H PYLLC #### [facility] [address] [place] [address] Dr. Jose Gonsales Monocytes/100 WBC (Bld) 8.5 % Normal 1.7-12.0 [facility] Comment on above: Performed By: #### H PYLLC #### [facility] [address] [place] [address] Dr. Jose Gonsales NEUT # 3.3 103/ul Normal 1.4-6.5 [facility] Comment on above: Performed By: #### H PYLLC #### [facility] [address] [place] [address] Dr. Jose Gonsales Neutrophils/100 WBC (Bld) 57.1 % Normal 43.0-75.0 [facility] Comment on above: Performed By: #### H PYLLC #### [facility] [address] [place] [address] [address] Jose Gonsales Platelet mean volume (Bld) [Entitic vol] 10.1 fL Normal 9.5-13.5 [facility] Comment on above: Performed By: #### H PYLLC #### [facility] [address] [place] [address] [address] Jose Gonsales PLT 150 103/ul Normal 150-450 [facility] Comment on above: Performed By: #### H PYLLC #### [facility] [address] [place] [address] [address] Jose Gonsales RBC 4.74 106/ul Normal 4.70-6.10 [facility] Comment on above: Performed By: #### H PYLLC #### [facility] [address] [place] [address] Dr. Jose Gonsales WBC 5.8 103/ul Normal 4.0-11.0 [facility] Comment on above: Performed By: #### H PYLLC #### [facility] [address] [place] [address] Dr. Jose Gonsales [facility]on SARS-CoV-2 (COVID-19) RNA JORDON+probe Ql (Unsp spec) Not detected Normal NOT DETECTED [facility] Comment on above: Result Comment: This test is not yet approved or cleared by the [place] FDA. When there are no FDA-approved or cleared tests available, and other criteria are met, FDA can make tests available under an emergency access mechanism called an Emergency Use Authorization (EUA). The EUA for this test is supported by the [place] of Health and Human Service's (HHS's) declaration [...] consistent with SARS-CoV-2. Performed By: #### C VDTB ####[facility] [address] [place] [address]Dr. Jose Gonsales PROF CHEM 8 (BAS METB)on Anion gap [Moles/Vol] 14.0 mmol/L Normal [facility] Comment on above: Performed By: #### P TTHEP #### [facility] [address] [place] [address] [address] Jose Gonsales Calcium [Mass/Vol] 9.3 mg/dL Normal 8.5-10.1 [facility] Comment on above: Performed By: #### P TTHEP #### [facility] [address] [place] [address] [address] Jose Gonsales Chloride [Moles/Vol] 106 mmol/L Normal 98-107 [facility] Comment on above: Performed By: #### P TTHEP #### [facility] [address] [place] [address] [address] Jose Gonsales CO2 [Moles/Vol] 22.7 mmol/L Normal 21.0-32.0 [facility] Comment on above: Performed By: #### P TTHEP #### [facility] [address] [place] [address] [address] Jose Gonsales Creatinine [Mass/Vol] 2.22 mg/dL Critically high 0.70-1.30 [facility] Comment on above: Performed By: #### P TTHEP #### [facility] [address] [place] [address] [address] Jose Gonsales EGFR-AF VENEZUELAN 36 mL/min/1.73m2 Critically low >=60 [facility] Comment on above: Performed By: #### P TTHEP #### [facility] [address] [place] [address] [address] Jose Gonsales EGFR-NON AF VENEZUELAN 30 mL/min/1.73m2 Critically low >=60 [facility] Comment on above: Performed By: #### P TTHEP #### [facility] [address] [place] [address] [address] Jose Gonsales Glucose [Mass/Vol] 121 mg/dL Critically high 74-106 [facility] Comment on above: Performed By: #### P TTHEP #### [facility] [address] [place] [address] [address] Jose Gonsales Potassium [Moles/Vol] 4.7 mmol/L Normal 3.5-5.1 [facility] Comment on above: Performed By: #### P TTHEP #### [facility] [address] [place] [address] [address] Jose Gonsales Sodium [Moles/Vol] 138 mmol/L Normal 136-145 [facility] Comment on above: Performed By: #### P TTHEP #### [facility] [address] [place] [address] [address] Jose Gonsales Urea nitrogen [Mass/Vol] 38.0 mg/dL Critically high 7.0-18.0 [facility] Comment on above: Performed By: #### P TTHEP #### [facility] [address] [place] [address] [address] Jose Gonsales Urea nitrogen/Creatini ne [Mass ratio] 17.1 mg/mg Normal [facility] Comment on above: Performed By: #### P TTHEP #### [facility] [address] [place] [address] [address] Jose Gonsales NM STRESS/REST MULTIon 03-21 NM STRESS/REST MULTI Patient: PARISH CONTRERAS Exam Date: 03/21/2022 : 1955 Gender:M Ordering : DR ELENO JOHNSON M.D. Admission #: [id number] Family : DR JONAS MURILLO . Order #: [id number] CLICK HERE TO VIEW EXAM RADIOLOGY REPORT [...] Good. PERFUSION DEFECT: LOCATION: Mid-anterior. Apical anterior. [place]. SIZE: Medium (3-4 segments). SEVERITY: Severe. TYPE: Mixed. WALL MOTION: Severe hypokinesis: Mid-anterior. Apical anterior. [place]. LV SIZE: Enlarged; EDV 157 mL. TID [...] MD on 03/22/2022 at 07:09 Normal [facility] DIGOXINon 01-03-2022 DIG 1.1 ng/mL Normal 0.8-2.0 [facility] Comment on above: Performed By: #### P TTHEP #### [facility] [address] [place] [address] Dr. Jose Gonsales DIGOXINon 12-24-2021 DIG 1.1 ng/mL Normal 0.8-2.0 [facility] Comment on above: Performed By: #### P TTHEP #### [facility] [address] [place] [address] Dr. Jose Gonsales BNPon 12-22-2021 Natriuretic peptide B (Bld) [Mass/Vol] 353.0 pg/mL Normal <=900.0 [facility] Comment on above: Performed By: #### P T #### [facility] [address] [place] [address] Dr. Jose Gonsales CARDIAC CHESTER ADMITon 022 CK [Catalytic activity/Vol] 122 U/L Normal 55-170 [facility] Comment on above: Performed By: #### P T #### [facility] [address] [place] [address] Dr. Jose Gonsales CK.MB [Mass/Vol] 0.94 ng/mL Normal <=2.37 [facility] Comment on above: Performed By: #### P T #### [facility] [address] [place] [address] Dr. Jose Gonsales HSTROP 208.6 pg/mL Critically high 4.0-42.2 [facility] Comment on above: Result Comment: CUT- OFF POINTS HAVE BEEN ESTABLISHED BASED ON THE FOURTH UNIVERSAL DEFINITIONS OF MYOCARDIAL INFARCTION. THE UPPER REFERENCE LIMIT (URL) OF TROPONIN, DEFINED THE 99TH PERCENTILE OF cTnI DISTRIBUTION IN A REFERENCE POPULATION, HAS BEEN CONFIRMED THE DECISION THRESHOLD FOR CT DIAGNOSIS. Performed By: #### P T #### [facility] [address] [place] [address] Dr. Jose Gonsales BLANCA 96.0 ng/mL Normal <=121.0 [facility] Comment on above: Performed By: #### P T #### [facility] [address] [place] [address] Dr. Jose Gonsales CBC AUTO DIFFon 12-22-2021 BASO # 0.0 103/ul Normal 0.0-0.1 [facility] Comment on above: Performed By: #### H PYLLC #### [facility] [address] [place] [address] Dr. Jose Gonsales Basophils/100 WBC (Bld) 0.3 % Normal 0.2-2.0 [facility] Comment on above: Performed By: #### H PYLLC #### [facility] [address] [place] [address] Dr. Jose Gonsales EO # 0.1 103/ul Normal 0.0-0.7 [facility] Comment on above: Performed By: #### H PYLLC #### [facility] [address] [place] [address] Dr. Jose Gonsales Eosinophils/100 WBC (Bld) 1.9 % Normal 0.9-7.0 [facility] Comment on above: Performed By: #### H PYLLC #### [facility] [address] [place] [address] Dr. Jose Gonsales Erythrocyte distribution width (RBC) [Ratio] 12.9 % Normal 11.0-15.0 [facility] Comment on above: Performed By: #### H PYLLC #### [facility] [address] [place] [address] Dr. Jose Gonsales Hematocrit (Bld) [Volume fraction] 45.6 % Normal 42.0-54.0 [facility] Comment on above: Performed By: #### H PYLLC #### [facility] [address] [place] [address] Dr. Jose Gonsales Hemoglobin (Bld) [Mass/Vol] 15.1 g/dL Normal 14.0-18.0 [facility] Comment on above: Performed By: #### H PYLLC #### [facility] [address] [place] [address] Dr. Jose Gonsales IG # 0.02 10e3/ul Normal 0.00-0.03 [facility] Comment on above: Performed By: #### H PYLLC #### [facility] [address] [place] [address] Dr. Jose Gonsales IG % 0.3 % Normal 0.0-0.5 [facility] Comment on above: Performed By: #### H PYLLC #### [facility] [address] [place] [address] Dr. Jose Gonsales LYMPH # 2.0 103/ul Normal 1.2-3.8 [facility] Comment on above: Performed By: #### H PYLLC #### [facility] [address] [place] [address] Dr. Jose Gonsales Lymphocytes/100 WBC (Bld) 29.5 % Normal 20.5-60.0 [facility] Comment on above: Performed By: #### H PYLLC #### [facility] [address] [place] [address] Dr. Jose Gonsales MANUAL DIFF REQ NO Normal [facility] Comment on above: Performed By: #### H PYLLC #### [facility] [address] [place] [address] [address] Jose Gonsales MCH (RBC) [Entitic mass] 31.1 pg Normal 25.9-34.0 [facility] Comment on above: Performed By: #### H PYLLC #### [facility] [address] [place] [address] Dr. Jose Gonsales MCHC (RBC) [Mass/Vol] 33.1 g/dL Normal 29.9-35.2 [facility] Comment on above: Performed By: #### H PYLLC #### [facility] [address] [place] [address] Dr. Jose Gonsales MCV (RBC) [Entitic vol] 94.0 fL Normal 80.0-94.0 [facility] Comment on above: Performed By: #### H PYLLC #### [facility] [address] [place] [address] Dr. Jose Gonsales MONO # 0.7 103/ul Normal 0.3-0.8 [facility] Comment on above: Performed By: #### H PYLLC #### [facility] [address] [place] [address] Dr. Jose Gonsales Monocytes/100 WBC (Bld) 10.4 % Normal 1.7-12.0 [facility] Comment on above: Performed By: #### H PYLLC #### [facility] [address] [place] [address] Dr. Jose Gonsales NEUT # 3.9 103/ul Normal 1.4-6.5 [facility] Comment on above: Performed By: #### H PYLLC #### [facility] [address] [place] [address] Dr. Jose Gonsales Neutrophils/100 WBC (Bld) 57.6 % Normal 43.0-75.0 [facility] Comment on above: Performed By: #### H PYLLC #### [facility] [address] [place] [address] Dr. Jose Gonsales Platelet mean volume (Bld) [Entitic vol] 10.1 fL Normal 9.5-13.5 [facility] Comment on above: Performed By: #### H PYLLC #### [facility] [address] [place] [address] [address] Jose Gonsales PLT 147 103/ul Critically low 150-450 [facility] Comment on above: Performed By: #### H PYLLC #### [facility] [address] [place] [address] [address] Jose Gonsales RBC 4.85 106/ul Normal 4.70-6.10 [facility] Comment on above: Performed By: #### H PYLLC #### [facility] [address] [place] [address] [address] Jose Gonsales WBC 6.7 103/ul Normal 4.0-11.0 [facility] Comment on above: Performed By: #### H PYLLC #### [facility] [address] [place] [address] Dr. Jose Gonsales DIGOXINon 12-22-2021 DIG 0.9 ng/mL Normal 0.8-2.0 [facility] Comment on above: Performed By: #### H PYLLC #### [facility] [address] [place] [address] Dr. Jose Gonsales POINT OF CARE GLUCOSEon 11-25 Glucose [Mass/Vol] 152 mg/dL Critically high 74-106 [facility] Comment on above: Performed By: #### H PYLLC #### [facility] [address] [place] [address] Dr. Jose Gonsales PROF 14(COMP METB)on 022 Albumin [Mass/Vol] 3.5 g/dL Normal 3.4-5.0 [facility] Comment on above: Performed By: #### P T #### [facility] [address] [place] [address] Dr. Jose Gonsales Albumin/Globulin [Mass ratio] 0.9 {ratio} Normal [facility] Comment on above: Performed By: #### P T #### [facility] [address] [place] [address] Dr. Jose Gonsales ALP [Catalytic activity/Vol] 57 U/L Normal 46-116 [facility] Comment on above: Performed By: #### P T #### [facility] [address] [place] [address] Dr. Jose Gonsales ALT [Catalytic activity/Vol] 35 U/L Normal 16-63 [facility] Comment on above: Performed By: #### P T #### [facility] [address] [address] [address] Jose Gonsales Anion gap [Moles/Vol] 14.2 mmol/L Normal [facility] Comment on above: Performed By: #### P T #### [facility] [address] [address] [address] Jose Gonsales AST [Catalytic activity/Vol] 24 U/L Normal 15-37 [facility] Comment on above: Performed By: #### P T #### [facility] [address] [place] [address] Dr. Jose Gonsales Bilirubin [Mass/Vol] 0.4 mg/dL Normal 0.2-1.3 [facility] Comment on above: Performed By: #### P T #### [facility] [address] [place] [address] Dr. Jose Gonsales Calcium [Mass/Vol] 9.1 mg/dL Normal 8.5-10.1 [facility] Comment on above: Performed By: #### P T #### [facility] [address] [address] [address] Jose Gonsales Chloride [Moles/Vol] 103 mmol/L Normal 98-107 [facility] Comment on above: Performed By: #### P T #### [facility] [address] [address] [address] Jose Gonsales CO2 [Moles/Vol] 24.8 mmol/L Normal 22.0-30.0 [facility] Comment on above: Performed By: #### P T #### [facility] [address] [place] [address] Dr. Jose Gonsales Creatinine [Mass/Vol] 1.94 mg/dL Critically high 0.66-1.25 [facility] Comment on above: Performed By: #### P T #### [facility] [address] [address] [address] Jose Gonsales EGFR-AF VENEZUELAN 42 mL/min/1.73m2 Critically low >=60 [facility] Comment on above: Performed By: #### P T #### [facility] [address] [address] [address] Jose Gonsales EGFR-NON AF VENEZUELAN 35 mL/min/1.73m2 Critically low >=60 [facility] Comment on above: Performed By: #### P T #### [facility] [address] [address] [address] Jose Gonsales Globulin (S) [Mass/Vol] 3.9 g/dL Normal [facility] Comment on above: Performed By: #### P T #### [facility] [address] [address] [address] Jose Gonsales Glucose [Mass/Vol] 125 mg/dL Critically high 74-106 [facility] Comment on above: Performed By: #### P T #### [facility] [address] [address] [address] Jose Gonsales Potassium [Moles/Vol] 5.0 mmol/L Normal 3.4-5.0 [facility] Comment on above: Performed By: #### P T #### [facility] [address] [address] [address] Jose Gonsales Protein [Mass/Vol] 7.4 g/dL Normal 6.1-8.2 [facility] Comment on above: Performed By: #### P T #### [facility] [address] [address] [address] Jose Gonsales Sodium [Moles/Vol] 137 mmol/L Normal 137-145 [facility] Comment on above: Performed By: #### P T #### [facility] [address] [address] [address] Jose Gonsales Urea nitrogen [Mass/Vol] 37.0 mg/dL Critically high 7.0-18.0 [facility] Comment on above: Performed By: #### P T #### [facility] [address] [place] [address] Dr. Jose Gonsales Urea nitrogen/Creatini ne [Mass ratio] 19.1 mg/mg Normal [facility] Comment on above: Performed By: #### P T #### [facility] [address] [place] [address] Dr. Jose Gonsales PTT HEPARIN MONITORon 2021 aPTT Coag (Bld) [Time] 27.3 s Critically low 39.5-54.2 [facility] Comment on above: Performed By: #### P TTHEP ####[facility] [id number] [address]Dr. Jose Gonsales T3, TOTAL (TRIIODOTHYRONINE) on 12-22-2021 T3, TOTAL 95 ng/dL Normal 71-180 [facility] Comment on above: Performed By: #### P T #### [facility] [address] [place] [address] Dr. Jose Gonsales BNPon 12-21-2021 Natriuretic peptide B (Bld) [Mass/Vol] 781.0 pg/mL Normal <=900.0 [facility] Comment on above: Performed By: #### B DIGITAL IMAGING SPECIALIST, CMP ####[facility] [address] [address]Dr. Jose Gonsales CARDIAC CHESTER 3-6on 2 CK [Catalytic activity/Vol] 331 U/L Critically high 55-170 [facility] Comment on above: Result Comment: test repeated Performed By: #### P T #### [facility] [address] [place] [address] Dr. Jose Gonsales CK.MB [Mass/Vol] 2.24 ng/mL Normal <=2.37 [facility] Comment on above: Performed By: #### P T #### [facility] [address] [place] [address] Dr. Jose Gonsales HSTROP 430.1 pg/mL Critically high 4.0-42.2 [facility] Comment on above: Result Comment: CUT- OFF POINTS HAVE BEEN ESTABLISHED BASED ON THE FOURTH UNIVERSAL DEFINITIONS OF MYOCARDIAL INFARCTION. THE UPPER REFERENCE LIMIT (URL) OF TROPONIN, DEFINED THE 99TH PERCENTILE OF cTnI DISTRIBUTION IN A REFERENCE POPULATION, HAS BEEN CONFIRMED THE DECISION THRESHOLD FOR CT DIAGNOSIS. test repeated Performed By: #### P T #### [facility] [address] [place] [address] Dr. Jose Gonsales CK [Catalytic activity/Vol] 320 U/L Critically high 55-170 [facility] Comment on above: Result Comment: test repeated Performed By: #### P T #### [facility] [address] [place] [address] Dr. Jose Gonsales CK.MB [Mass/Vol] 2.32 ng/mL Normal <=2.37 [facility] Comment on above: Performed By: #### P T #### [facility] [address] [place] [address] Dr. Jose Gonsales HSTROP 666.8 pg/mL Critically high 4.0-42.2 [facility] Comment on above: Result Comment: CUT- OFF POINTS HAVE BEEN ESTABLISHED BASED ON THE FOURTH UNIVERSAL DEFINITIONS OF MYOCARDIAL INFARCTION. THE UPPER REFERENCE LIMIT (URL) OF TROPONIN, DEFINED THE 99TH PERCENTILE OF cTnI DISTRIBUTION IN A REFERENCE POPULATION, HAS BEEN CONFIRMED THE DECISION THRESHOLD FOR CT DIAGNOSIS. test repeated Performed By: #### P T #### [facility] [address] [place] [address] Dr. Jose Gonsales CBC AUTO DIFFon 12-21-2021 BASO # 0.0 103/ul Normal 0.0-0.1 [facility] Comment on above: Performed By: #### C BC #### [facility] [address] [place] [address] Dr. Jose Gonsales Basophils/100 WBC (Bld) 0.1 % Critically low 0.2-2.0 [facility] Comment on above: Performed By: #### C BC #### [facility] [address] [place] [address] Dr. Jose Gonsales EO # 0.0 103/ul Normal 0.0-0.7 [facility] Comment on above: Performed By: #### C BC #### [facility] [address] [address] [address] Jose Gonsales Eosinophils/100 WBC (Bld) 0.1 % Critically low 0.9-7.0 [facility] Comment on above: Performed By: #### C BC #### [facility] [address] [place] [address] Dr. Jose Gonsales Erythrocyte distribution width (RBC) [Ratio] 12.9 % Normal 11.0-15.0 [facility] Comment on above: Performed By: #### C BC #### [facility] [address] [place] [address] Dr. Jose Gonsales Hematocrit (Bld) [Volume fraction] 43.4 % Normal 42.0-54.0 [facility] Comment on above: Performed By: #### C BC #### [facility] [address] [place] [address] Dr. Jose Gonsales Hemoglobin (Bld) [Mass/Vol] 14.7 g/dL Normal 14.0-18.0 [facility] Comment on above: Performed By: #### C BC #### [facility] [address] [place] [address] Dr. Jose Gonsales IG # 0.03 10e3/ul Normal 0.00-0.03 [facility] Comment on above: Performed By: #### C BC #### [facility] [address] [place] [address] Dr. Jose Gonsales IG % 0.4 % Normal 0.0-0.5 [facility] Comment on above: Performed By: #### C BC #### [facility] [address] [place] [address] Dr. Jose Gonsales LYMPH # 0.9 103/ul Critically low 1.2-3.8 [facility] Comment on above: Performed By: #### C BC #### [facility] [address] [place] [address] Dr. Jose Gonsales Lymphocytes/100 WBC (Bld) 13.9 % Critically low 20.5-60.0 [facility] Comment on above: Performed By: #### C BC #### [facility] [address] [place] [address] Dr. Jose Gonsales MANUAL DIFF REQ NO Normal [facility] Comment on above: Performed By: #### C BC #### [facility] [address] [place] [address] Dr. Jose Gonsales MCH (RBC) [Entitic mass] 31.1 pg Normal 25.9-34.0 [facility] Comment on above: Performed By: #### C BC #### [facility] [address] [place] [address] Dr. Jose Gonsales MCHC (RBC) [Mass/Vol] 33.9 g/dL Normal 29.9-35.2 [facility] Comment on above: Performed By: #### C BC #### [facility] [address] [place] [address] Dr. Jose Gonsales MCV (RBC) [Entitic vol] 91.8 fL Normal 80.0-94.0 [facility] Comment on above: Performed By: #### C BC #### [facility] [address] [place] [address] Dr. Jose Gonsales MONO # 0.5 103/ul Normal 0.3-0.8 [facility] Comment on above: Performed By: #### C BC #### [facility] [address] [place] [address] Dr. Jose Gonsales Monocytes/100 WBC (Bld) 7.0 % Normal 1.7-12.0 [facility] Comment on above: Performed By: #### C BC #### [facility] [address] [place] [address] Dr. Jose Gonsales NEUT # 5.3 103/ul Normal 1.4-6.5 [facility] Comment on above: Performed By: #### C BC #### [facility] [address] [place] [address] Dr. Jose Gonsales Neutrophils/100 WBC (Bld) 78.5 % Critically high 43.0-75.0 [facility] Comment on above: Performed By: #### C BC #### [facility] [address] [place] [address] Dr. Jose Gonsales Platelet mean volume (Bld) [Entitic vol] 10.1 fL Normal 9.5-13.5 [facility] Comment on above: Performed By: #### C BC #### [facility] [address] [address] [address] Jose Gonsaels PLT 129 103/ul Critically low 150-450 [facility] Comment on above: Performed By: #### C BC #### [facility] [address] [address] [address] Jose Gonsales RBC 4.73 106/ul Normal 4.70-6.10 [facility] Comment on above: Performed By: #### C BC #### [facility] [address] [address] [address] Jose Gonsales WBC 6.8 103/ul Normal 4.0-11.0 [facility] Comment on above: Performed By: #### C BC #### [facility] [address] [address] [address] Jose Gonsales ECHOCARDIO M/2D COMPLETEon 0 12-21-2021 ECHOCARDIO M/2D COMPLETE Patient: PARISH CONTRERAS Exam Date: 12/21/2021 : 1955 Gender:M Ordering : DR JONAS MURILLO . Admission #: [id number] Family : Order #: [id number] CLICK HERE TO VIEW EXAM ECHOCARDIOGRAM REPORT [...] Area(A4C): 17.90 cm2 Left Atrium Systolic Volume(A2C): 95127 mm3 Left Atrium Systolic Volume(A4C): 78065 mm3 Mitral Valve Mitral Valve E-Wave Peak [...] M.D. on 12/21/2021 at 13:03 Normal [facility] POINT OF CARE GLUCOSEon 03-2 Glucose [Mass/Vol] 169 mg/dL Critically high 74-106 [facility] Comment on above: Performed By: #### P TTHEP #### [facility] [address] [address] [address] Jose Gonsales Glucose [Mass/Vol] 128 mg/dL Critically high 74-106 [facility] Comment on above: Performed By: #### P T #### [facility] [address] [address] [address] Jose Gonsales Glucose [Mass/Vol] 151 mg/dL Critically high 74-106 [facility] Comment on above: Performed By: #### P T #### [facility] [address] [place] [address] Dr. Jose Gonsales Glucose [Mass/Vol] 136 mg/dL Critically high 74-106 [facility] Comment on above: Performed By: #### P TTHEP #### [facility] [address] [address] [address] Jose Gonsales PROF 14(COMP METB)on 022 Albumin [Mass/Vol] 3.3 g/dL Critically low 3.4-5.0 [facility] Comment on above: Performed By: #### B DIGITAL IMAGING SPECIALIST, CMP #### [facility] [address] [place] [address] Dr. Jose Gonsales Albumin/Globulin [Mass ratio] 0.9 {ratio} Normal [facility] Comment on above: Performed By: #### B DIGITAL IMAGING SPECIALIST, CMP #### [facility] [address] [place] [address] Dr. Jose Gonsales ALP [Catalytic activity/Vol] 53 U/L Normal 46-116 [facility] Comment on above: Performed By: #### B DIGITAL IMAGING SPECIALIST, CMP #### [facility] [address] [place] [address] Dr. Jose Gonsales ALT [Catalytic activity/Vol] 22 U/L Normal 16-63 [facility] Comment on above: Performed By: #### B DIGITAL IMAGING SPECIALIST, CMP #### [facility] [address] [address] [address] Jose Gonsales Anion gap [Moles/Vol] 12.8 mmol/L Normal [facility] Comment on above: Performed By: #### B DIGITAL IMAGING SPECIALIST, CMP #### [facility] [address] [address] [address] Jose Gonsales AST [Catalytic activity/Vol] 21 U/L Normal 15-37 [facility] Comment on above: Performed By: #### B DIGITAL IMAGING SPECIALIST, CMP #### [facility] [address] [address] [address] Jose Gonsales Bilirubin [Mass/Vol] 0.5 mg/dL Normal 0.2-1.3 [facility] Comment on above: Performed By: #### B DIGITAL IMAGING SPECIALIST, CMP #### [facility] [address] [place] [address] Dr. Jose Gonsales Calcium [Mass/Vol] 8.7 mg/dL Normal 8.5-10.1 [facility] Comment on above: Performed By: #### B DIGITAL IMAGING SPECIALIST, CMP #### [facility] [address] [place] [address] Dr. Jose Gonsales Chloride [Moles/Vol] 104 mmol/L Normal 98-107 [facility] Comment on above: Performed By: #### B DIGITAL IMAGING SPECIALIST, CMP #### [facility] [address] [place] [address] Dr. Jose Gonsales CO2 [Moles/Vol] 25.8 mmol/L Normal 22.0-30.0 [facility] Comment on above: Performed By: #### B DIGITAL IMAGING SPECIALIST, CMP #### [facility] [address] [address] [address] Jose Gonsales Creatinine [Mass/Vol] 2.02 mg/dL Critically high 0.66-1.25 [facility] Comment on above: Performed By: #### B DIGITAL IMAGING SPECIALIST, CMP #### [facility] [address] [address] [address] Jose Gonsales EGFR-AF VENEZUELAN 40 mL/min/1.73m2 Critically low >=60 [facility] Comment on above: Performed By: #### B DIGITAL IMAGING SPECIALIST, CMP #### [facility] [address] [address] [address] Jose Gonsales EGFR-NON AF VENEZUELAN 33 mL/min/1.73m2 Critically low >=60 [facility] Comment on above: Performed By: #### B DIGITAL IMAGING SPECIALIST, CMP #### [facility] [address] [address] [address] Jose Gonsales Globulin (S) [Mass/Vol] 3.6 g/dL Normal [facility] Comment on above: Performed By: #### B DIGITAL IMAGING SPECIALIST, CMP #### [facility] [address] [address] [address] Jose Gonsales Glucose [Mass/Vol] 170 mg/dL Critically high 74-106 [facility] Comment on above: Performed By: #### B DIGITAL IMAGING SPECIALIST, CMP #### [facility] [address] [address] [address] Jose Gonsales Potassium [Moles/Vol] 4.6 mmol/L Normal 3.4-5.0 [facility] Comment on above: Performed By: #### B DIGITAL IMAGING SPECIALIST, CMP #### [facility] [address] [address] [address] Jose Gonsales Protein [Mass/Vol] 6.9 g/dL Normal 6.1-8.2 [facility] Comment on above: Performed By: #### B DIGITAL IMAGING SPECIALIST, CMP #### [facility] [address] [address] [address] Jose Gonsales Sodium [Moles/Vol] 138 mmol/L Normal 137-145 [facility] Comment on above: Performed By: #### B DIGITAL IMAGING SPECIALIST, CMP #### [facility] [address] [address] [address] Jsoe Gonsales Urea nitrogen [Mass/Vol] 40.0 mg/dL Critically high 7.0-18.0 [facility] Comment on above: Performed By: #### B DIGITAL IMAGING SPECIALIST, CMP #### [facility] [address] [address] [address] Jose Gonsales Urea nitrogen/Creatini ne [Mass ratio] 19.8 mg/mg Normal [facility] Comment on above: Performed By: #### B DIGITAL IMAGING SPECIALIST, CMP #### [facility] [address] [place] [address] Dr. Jose Gonsales PROTIMEon 12-21-2021 INR Coag (PPP) [Relative time] 1.08 {INR} Normal [facility] Comment on above: Performed By: #### P T #### [facility] [address] [place] [address] Dr. Jose Gonsales INR GUIDELINES SEE BELOW Normal [facility] Comment on above: Result Comment: GRANT RED INR: 2.0 - 3.0 CONDITIONS NOT LISTED BELOW 2.5 - 3.5 FOR PROSTHETIC HEART VALVE REPLACEMENT 2.5 - 3.5 RECURRENT THROMBOSIS Performed By: #### P T #### [facility] [address] [place] [address] Dr. Jose Gonsales PT Coag (PPP) [Time] 11.6 s Normal 9.0-11.6 [facility] Comment on above: Performed By: #### P T #### [facility] [address] [place] [address] Dr. Jose Gonsales PTT HEPARIN MONITORon 2021 aPTT Coag (Bld) [Time] 55.6 s Critically high 39.5-54.2 [facility] Comment on above: Result Comment: test repeated Performed By: #### H PYLLC #### [facility] [address] [place] [address] Dr. Jose Gonsales aPTT Coag (Bld) [Time] 25.6 s Critically low 39.5-54.2 [facility] Comment on above: Performed By: #### P TTHEP #### [facility] [address] [place] [address] Dr. Jose Gonsales T4on 12-21-2021 T4 [Mass/Vol] 6.40 ug/dL Normal 5.53-11.00 [facility] Comment on above: Performed By: #### H PYLLC #### [facility] [address] [place] [address] Dr. Jose Gonsales TSHon 12-21-2021 TSH 0.660 uIU/mL Normal 0.470-4.680 [facility] Comment on above: Performed By: #### H PYLLC #### [facility] [address] [place] [address] Dr. Jose Gonsales TSH RANGE SEE BELOW Normal [facility] Comment on above: Result Comment: <0.3 4 UIU/ml HYPERTHYROID 0.34-5.60 UIU/ml EUTHYROID >5.60 UIU/ml HYPOTHYROID Performed By: #### H PYLLC #### [facility] [address] [place] [address] Dr. Jose Gonsales CBC W MANUAL DIFFon 12-21-19 22 ATYPICAL LYMPH # Normal [facility] Comment on above: Performed By: #### C CATHIE #### [facility] [address] [place] [address] Dr. Jose Gonsales ATYPICAL LYMPH % Normal [facility] Comment on above: Performed By: #### C CATHIE #### [facility] [address] [place] [address] Dr. Jose Gonsales BAND # 0.1 103/ul Normal 0.0-0.3 [facility] Comment on above: Performed By: #### C CATHIE #### [facility] [address] [place] [address] Dr. Jose Gonsales BAND % 1 % Normal 0-5 [facility] Comment on above: Performed By: #### C BCDANIEL #### [facility] [address] [place] [address] Dr. Jose Gonsales BASOM # 0.00 103/ul Normal 0.00-0.10 [facility] Comment on above: Performed By: #### C BCDANIEL #### [facility] [address] [place] [address] Dr. Jose Gonsales BASOM % 0.0 % Critically low 0.2-2.0 [facility] Comment on above: Performed By: #### C BCDANIEL #### [facility] [address] [place] [address] Dr. Jose Gonsales BLAST # Normal [facility] Comment on above: Performed By: #### C BCDANIEL #### [facility] [address] [address] [address] Jose Gonsales BLAST % Normal [facility] Comment on above: Performed By: #### C CATHIE #### [facility] [address] [place] [address] Dr. Jose Gonsales CORRECTED WBC Normal 4.0-11.0 [facility] Comment on above: Performed By: #### C CATHIE #### [facility] [address] [place] [address] Dr. Jose Gonsales EOS # 0.00 103/ul Normal 0.00-0.70 [facility] Comment on above: Performed By: #### C CATHIE #### [facility] [address] [place] [address] Dr. Jose Gonsales EOS% 0.0 % Critically low 0.9-7.0 [facility] Comment on above: Performed By: #### C CATHIE #### [facility] [address] [place] [address] Dr. Jose Gonsales HCT 47.0 % Normal 42.0-54.0 [facility] Comment on above: Performed By: #### C CATHIE #### [facility] [address] [place] [address] Dr. Jose Gonsales HGB 15.6 g/dl Normal 14.0-18.0 [facility] Comment on above: Performed By: #### C CATHIE #### [facility] [address] [place] [address] Dr. Jose Gonsales LYMPHM # 0.43 103/ul Critically low 1.20-3.80 [facility] Comment on above: Performed By: #### C CATHIE #### [facility] [address] [place] [address] Dr. Jose Gonsales LYMPHM% 6.0 % Critically low 20.5-60.0 [facility] Comment on above: Performed By: #### C CATHIE #### [facility] [address] [place] [address] Dr. Jose Gonsales MCH 30.8 pg Normal 25.9-34.0 [facility] Comment on above: Performed By: #### C CATHIE #### [facility] [address] [address] [address] Jose Gonsales MCHC 33.2 g/dl Normal 29.9-35.2 [facility] Comment on above: Performed By: #### C CATHIE #### [facility] [address] [place] [address] Dr. Jose Gonsales MCV 92.9 fL Normal 80.0-94.0 [facility] Comment on above: Performed By: #### C CATHIE #### [facility] [address] [place] [address] Dr. Jose Gonsales METAMYELOCYTE # Normal [facility] Comment on above: Performed By: #### C CATHIE #### [facility] [address] [place] [address] Dr. Jose Gonsales METAMYELOCYTE % Normal [facility] Comment on above: Performed By: #### C CATHIE #### [facility] [address] [place] [address] Dr. Jose Gonsales MONOM# 0.29 103/ul Critically low 0.30-0.80 [facility] Comment on above: Performed By: #### C CATHIE #### [facility] [address] [place] [address] Dr. Jose Gonsales MONOM% 4.0 % Normal 1.7-12.0 [facility] Comment on above: Performed By: #### C CATHIE #### [facility] [address] [place] [address] Dr. Jose Gonsales MPV 10.1 fL Normal 9.5-13.5 [facility] Comment on above: Performed By: #### C CATHIE #### [facility] [address] [place] [address] Dr. Jose Gonsales MYELOCYTE # Normal [facility] Comment on above: Performed By: #### C CATHIE #### [facility] [address] [place] [address] Dr. Jose Gonsales MYELOCYTE % Normal [facility] Comment on above: Performed By: #### C CATHIE #### [facility] [address] [address] [address] Jose Gonsales NRBC Normal [facility] Comment on above: Performed By: #### C CATHIE #### [facility] [address] [address] [address] Jose Gonsales PLT 139 103/ul Critically low 150-450 [facility] Comment on above: Result Comment: no p lt clumping Performed By: #### C CATHIE #### [facility] [address] [address] [address] Jose Gonsales RBC 5.06 106/ul Normal 4.70-6.10 [facility] Comment on above: Performed By: #### C CATHIE #### [facility] [address] [place] [address] Dr. Jose Gonsales RDW 13.0 % Normal 11.0-15.0 [facility] Comment on above: Performed By: #### C CATHIE #### [facility] [address] [place] [address] Dr. Jose Gonsales SEG # 6.41 103/ul Normal 1.40-6.50 [facility] Comment on above: Performed By: #### C CATHIE #### [facility] [address] [place] [address] Dr. Jose Gonsales SEG % 89.0 % Critically high 43.0-75.0 [facility] Comment on above: Performed By: #### C CATHIE #### [facility] [address] [place] [address] Dr. Jose Gonsales WBC 7.2 103/ul Normal 4.0-11.0 [facility] Comment on above: Performed By: #### C CATHIE #### [facility] [address] [place] [address] HEAD WO CONon [...] ORAL SMALLS Date: 2021-12-20 19:44 Normal [facility] Covid-19 PCR (CVDTBH)on 11-24 SARS-CoV-2 (COVID-19) RNA JORDON+probe Ql (Unsp spec) Not detected Normal NOT DETECTED [facility] Comment on above: Result Comment: When diagnostic testing is negative, the possibility of a false negative should be considered in the context of a patient's recent exposures and the presence of clinical signs and symptoms consistent with SARS-CoV-2. This test is not yet approved or cleared by the [place] Food and Drug Administration (FDA). This test was developed by [employer], [place], [place]. The performance characteristics of this test were validated by The [facility]. The results are not intended to be used as the sole means for clinical diagnosis or patient management decisions. The [facility] is authorized under Clinical Laboratory Improvement [...] for this test is supported by the [place] of Health and Human Service's declaration that [...] longer be used). Performed By: #### C [facility] #### [facility] [address] [place] [address] Dr. Jose Gonsales INFLUENZA A AND B AGon 12-20 INFLUANE SEE BELOW Normal [facility] Comment on above: Result Comment: Nega tive for Flu A protein angiten. Infection due to Flu A cannot be ruled out. Flu A angiten in the sample may be below the detection limit of the test. Performed By: #### P T #### [facility] [address] [place] [address] Dr. Jose Gonsales INFLUBNEG SEE BELOW Normal [facility] Comment on above: Result Comment: Nega tive for Flu B protein antigen. Infection due to Flu B cannot be ruled out. Flu B antigen in the sample may be below the detection limit of the test. Performed By: #### P T #### [facility] [address] [place] [address] Dr. Jose Gonsales INFLUENZA A AG Negative Normal NEGATIVE SEE COMMENT [facility] Comment on above: Performed By: #### P T #### [facility] [address] [place] [address] Dr. Jose Gonsales INFLUENZA B AG Negative Normal NEGATIVE SEE COMMENT [facility] Comment on above: Performed By: #### P T #### [facility] [address] [place] [address] Dr. Jose Gonsales INTERNAL CONTROLS Within Normal Limits Normal Wi thin Normal Limits [facility] Comment on above: Performed By: #### P T #### [facility] [address] [place] [address] Dr. Jose Gonsales PROF CHEM 8 (BAS METB)on Anion gap [Moles/Vol] 16.9 mmol/L Normal [facility] Comment on above: Performed By: #### H PYLLC #### [facility] [address] [place] [address] Dr. Jose Gonsales Calcium [Mass/Vol] 9.3 mg/dL Normal 8.5-10.1 [facility] Comment on above: Performed By: #### H PYLLC #### [facility] [address] [place] [address] Dr. Jose Gonsales Chloride [Moles/Vol] 102 mmol/L Normal 98-107 [facility] Comment on above: Performed By: #### H PYLLC #### [facility] [address] [address] [address] Jose Gonsales CO2 [Moles/Vol] 23.0 mmol/L Normal 22.0-30.0 [facility] Comment on above: Performed By: #### H PYLLC #### [facility] [address] [address] [address] Jose Gonsales Creatinine [Mass/Vol] 2.41 mg/dL Critically high 0.66-1.25 [facility] Comment on above: Performed By: #### H PYLLC #### [facility] [address] [place] [address] Dr. Jose Gonsales EGFR-AF VENEZUELAN 33 mL/min/1.73m2 Critically low >=60 [facility] Comment on above: Performed By: #### H PYLLC #### [facility] [address] [place] [address] Dr. Jose Gonsales EGFR-NON AF VENEZUELAN 27 mL/min/1.73m2 Critically low >=60 [facility] Comment on above: Performed By: #### H PYLLC #### [facility] [address] [place] [address] Dr. Jose Gonsales Glucose [Mass/Vol] 239 mg/dL Critically high 74-106 [facility] Comment on above: Performed By: #### H PYLLC #### [facility] [address] [place] [address] Dr. Jose Gonsales Potassium [Moles/Vol] 4.9 mmol/L Normal 3.4-5.0 [facility] Comment on above: Performed By: #### H PYLLC #### [facility] [address] [place] [address] Dr. Jose Gonsales Sodium [Moles/Vol] 137 mmol/L Normal 137-145 [facility] Comment on above: Performed By: #### H PYLLC #### [facility] [address] [place] [address] Dr. Jose Gonsales Urea nitrogen [Mass/Vol] 46.0 mg/dL Critically high 7.0-18.0 [facility] Comment on above: Performed By: #### H PYLLC #### [facility] [address] [address] [address] Jose Gonsales Urea nitrogen/Creatini ne [Mass ratio] 19.1 mg/mg Normal [facility] Comment on above: Performed By: #### H PYLLC #### [facility] [address] [address] [address] Jose Gonsales TROPONIN, HIGH SENSITIVITYon 12-20-2021 HSTROP 818.7 pg/mL Critically high 4.0-42.2 [facility] Comment on above: Result Comment: CUT- OFF POINTS HAVE BEEN ESTABLISHED BASED ON THE FOURTH UNIVERSAL DEFINITIONS OF MYOCARDIAL INFARCTION. THE UPPER REFERENCE LIMIT (URL) OF TROPONIN, DEFINED THE 99TH PERCENTILE OF cTnI DISTRIBUTION IN A REFERENCE POPULATION, HAS BEEN CONFIRMED THE DECISION THRESHOLD FOR CT DIAGNOSIS. test repeated Performed By: #### P T #### [facility] [address] [address] [address] Jose Gonsales HSTROP 696.3 pg/mL Critically high 4.0-42.2 [facility] Comment on above: Result Comment: CUT- OFF POINTS HAVE BEEN ESTABLISHED BASED ON THE FOURTH UNIVERSAL DEFINITIONS OF MYOCARDIAL INFARCTION. THE UPPER REFERENCE LIMIT (URL) OF TROPONIN, DEFINED THE 99TH PERCENTILE OF cTnI DISTRIBUTION IN A REFERENCE POPULATION, HAS BEEN CONFIRMED THE DECISION THRESHOLD FOR CT DIAGNOSIS. test repeated Performed By: #### H PYLLC #### [facility] [address] [address] [address] Jose Gonsales XR CHEST 1 Von [...] change. Electronically authenticated by: MARIANELA HERRING Date: 2021-12-20:44 Normal [facility] COMP METABOLIC PANELon 08-31 Albumin [Mass/Vol] 4.4 g/dL Normal 3.5-5.7 [facility] Comment on above: Performed By: #### 0 0121 #### [facility] [address] [place] [address], [place] ALKALINE PHOSPH 65 IU/L Normal 34-104 [facility] Comment on above: Performed By: #### 0 0121 #### [facility] [address] [place] [address], [place] ALT [Catalytic activity/Vol] 19 U/L Normal 7-52 [facility] Comment on above: Performed By: #### 0 0121 #### [facility] [address] [place] [address], [place] AST [Catalytic activity/Vol] 18 U/L Normal 13-39 [facility] Comment on above: Performed By: #### 0 0121 #### [facility] [address] [place] [address], [place] Bilirubin [Mass/Vol] 0.5 mg/dL Normal 0.3-1.0 [facility] Comment on above: Performed By: #### 0 0121 #### [facility] [address] [place] [address], [place] Calcium [Mass/Vol] 9.6 mg/dL Normal 8.6-10.3 [facility] Comment on above: Performed By: #### 0 0121 #### [facility] [address] [place] [address], [place] Chloride [Moles/Vol] 107 mmol/L Normal 98-107 [facility] Comment on above: Performed By: #### 0 0121 #### [facility] [address] [place] [address], [place] CO2 [Moles/Vol] 26 mmol/L Normal 21-31 [facility] Comment on above: Performed By: #### 0 0121 #### [facility] [address] [place] [address], [facility] Creatinine [Mass/Vol] 2.01 mg/dL High 0.70-1.30 [facility] Comment on above: Performed By: #### 0 0121 #### [facility] [address] [place] [address], [facility] eGFR- 40 ml/min/1.73sq m Abnormal >60 [facility] Comment on above: Performed By: #### 0 0121 #### [facility] [address] [place] [address], [facility] eGFR- non- 33 ml/min/1.73sq m Abnormal >60 [facility] Comment on above: Performed By: #### 0 0121 #### [facility] [address] [place] [address], [facility] Glucose [Mass/Vol] 130 mg/dL High 70-100 [facility] Comment on above: Performed By: #### 0 0121 #### [facility] [address] [place] [address], [facility] Potassium [Moles/Vol] 5.1 mmol/L Normal 3.5-5.1 [facility] Comment on above: Performed By: #### 0 0121 #### [facility] [address] [place] [address], [facility] Protein [Mass/Vol] 7.1 g/dL Normal 6.0-8.3 [facility] Comment on above: Performed By: #### 0 0121 #### [facility] [address] [place] [address], [facility] Sodium [Moles/Vol] 139 mmol/L Normal 136-145 [facility] Comment on above: Performed By: #### 0 0121 #### [facility] [address] [place] [address], [facility] Urea nitrogen [Mass/Vol] 37 mg/dL High 7-25 [facility] Comment on above: Performed By: #### 0 0121 #### [facility] [address] [place] [address], [facility] HEMOGLOBIN A1Con 08-31-2021 Glucose [Moles/Vol] 157 mmol/L Normal [facility] Comment on above: Performed By: #### 3 1791 #### [facility] [address] [place] [address], [facility] HbA1c (Bld) [Mass fraction] 7.1 % High 4.0-6.0 [facility] Comment on above: Performed By: #### 3 1791 #### [facility] [address] [facility] [place] [address], [facility] HIV VIRAL LOADon 08-31-2021 HIV QNT RNA PCR: Not detected Normal [facility] Comment on above: Result Comment: The [employer] HIV Quant assay is a real-time administrative executive-mediated amplification (TMA) test which has a dynamic [...] infection. Performed By: #### 8 [id number] #### [facility] [address] [place] [address], [facility] LOG 10 COPIES Not detected Normal [facility] Comment on above: Performed By: #### 8 [id number] #### [facility] [address] URINALYSISon 08-31-2021 Appearance (U) CLEAR Normal CLEAR [facility] Comment on above: Performed By: #### 1 0008 #### [facility] [address] [facility] [place] [id number], [facility] Bilirubin Ql (U) Negative Normal NEGATIVE [facility] Comment on above: Performed By: #### 1 0008 #### [facility] [address] [facility] [place] [address], [facility] Color (U) YELLOW Normal YELLOW [facility] Comment on above: Performed By: #### 1 0008 #### [facility] [address] [facility] [place] [address], [facility] EPIS NONE SEEN Normal FEW,OCC,NONE SEEN [facility] Comment on above: Performed By: #### 1 0008 #### [facility] [address] [facility] [facility] [place] [address], [facility] Glucose Ql (U) Negative Normal NEGATIVE [facility] Comment on above: Performed By: #### 1 0008 #### [facility] [address] [facility] [place] [address], [facility] Hemoglobin Ql (U) TRACE Abnormal NEGATIVE [facility] Comment on above: Performed By: #### 1 0008 #### [facility] [address] [facility] [place] [address], [facility] KETONE Negative Normal NEGATIVE [facility] Comment on above: Performed By: #### 1 0008 #### [facility] [address] [facility] [place] [address], [facility] LEUK SABRINA Negative Normal NEGATIVE [facility] Comment on above: Performed By: #### 1 0008 #### [facility] [address] [place] [address], [place] Nitrite Ql (U) Negative Normal NEGATIVE [facility] Comment on above: Performed By: #### 1 0008 #### [facility] [address] [place] [address], [facility] pH (U) 6.0 [pH] Normal 5.0-8.0 [facility] Comment on above: Performed By: #### 1 0008 #### [facility] [address] [place] [address], [facility] Protein Ql (U) Negative Normal NEGATIVE [facility] Comment on above: Performed By: #### 1 0008 #### [facility] [address] [place] [address], [facility] RBC 0-2 Abnormal NONE SEEN [facility] Comment on above: Performed By: #### 1 0008 #### [facility] [address] [place] [address], [facility] SPEC GRAV 1.025 High 1.015-1.020 [facility] Comment on above: Performed By: #### 1 0008 #### [facility] [address] [facility] [place] [address], [facility] WBC UA NONE SEEN Normal NONE SEEN [facility] Comment on above: Performed By: #### 1 0008 #### [facility] [address] [facility] [place] [address], [facility] Encounters Encounter Date Encounter Type Care Provider Facility [facility]: [facility]: [facility]24 [facility] ARLEN KHAN [facility] Start: [facility]-07[facility]20[facility]: 05-07-2024 ambulatory JADA RAMSEY [facility] Start: 05-07-2024 End: 05-07-2024 ambulatory SUSHILA TANNER [facility] Start: 04-17-2024 End: 04-17-2024 ambulatory ALLYSON BOYD [facility] Start: 03-20-2024 ambulatory JADA RAMSEY [facility] Start: 03-08-2024 ambulatory JADA RAMSEY [facility] Start: 01-22-2024 ambulatory ARLEN KHAN [facility] Start: 11-21-2023 End: 11-21-2023 ambulatory SUSHILA TANNER [facility] Start: 10-24-2023 End: 10-24-2023 ambulatory DORA MONZONAKRadha [facility] Start: 02-08-2023 ambulatory Jose BECKER Facility :[facility] Start: 02-03-2023 ambulatory Jose BECKER Facility:[facility] Start: 09-26-2022 ambulatory ARLEN KHAN Facility:[facility] Start: 09-14-2022 End: 09-15-[address] JONAS MURILLO Facility:[facility] Start: 05-20-[address] ELENO JOHNSON Fac ility:[facility] Start: 05-16-2022 End: 05-17-[address] ELENO JOHNSON Facility:[facility] Start: 04-05-2022 Encounter for other preprocedural examination DR ELENO JOHNSON [facility] Start: 04-05-2022 Encounter for preprocedural laboratory examination DR ELENO JOHNSON [facility] Start: 04-05-2022 End: 04-06-2022 ambulatory JONAS MURILLO Facility:[facility] Start: 04-01-2022 End: 04-02-[address] ELENO JOHNSON Facility:[facility] Start: 04-01-2022 End: 04-02-2022 Encounter for other preprocedural examination DR ELENO JOHNSON Facility:[facility] Start: 03-21-2022 End: 03-22-[address] ELENO JOHNSON Facility:[facility] Start: 01-11-2022 ambulatory TREVON [facility]i lity:[facility] Start: 01-03-2022 End: 01-04-[address] ELENO JOHNSON Facility:[facility] Start: 12-24-2021 End: 12-25-[address] JONAS MURILLO Facility:[facility] Start: 12-20-2021 End: 12-22-[address] JONAS MURILLO Facility:[facility] Procedures Date Procedure Procedure Detail Performing Clinician Start: 09-14-[address] ELENO JOHNSON Comment on above: Performed By: #### P TTHEP #### [facility] [address] [place] [address] Dr. Jose Gonsales Payers Date Payer Category Payer Unknown [id number] 1961 Self-pay [id number] 1961 Unknown [id number] 1955 Unknown [id number] 2.16.8 [id number] 1953 Unknown [id number] 2.16.84 [id number] 1953 Unknown [id number] 2.16.84 [id number] 1953 Unknown [id number] 2.16.84 [id number] 1953 Unknown [id number] 2.16.84 [id number] 1953 Unknown [id number] 2.16.84 [id number] 1953 Unknown [id number] 2.16.84 [id number] 1953 Unknown [id number] 2.16.84 [id number] 1953 Unknown [id number] 2.16.84 [id number] 1953 Unknown [id number] 2.16.84 [id number] 1953 Unknown [id number] 2.16.84 [id number] 1953 Unknown [id number] 2.16.8 [id number] Clinical Notes 03-21-2022 to 05-20-2024 Note Date & Type Note Facility 05-20-2024 Note SARA phoned Pt to inf orm Pt that eligibility documentation was received. [facility] 05-16-2024 Note SARA received marcibi megan documentation from Pt via fax, but documentation was illegible. SARA phoned Pt and asked Pt to have documentation re-sent with greater legibility. [facility] 05-07-2024 Note SARA met with Pt to sheela ascencio eligibility documentation. 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 vision stable. glycemia controlled with metformin [...] High cholesterol HIV (human immunodeficiency virus infection) ([facility]/HCC) Hyperlipidemia Hypertension Hyperthyroidism Immune system disorder ([facility]/HCC) Myocardial infarction ([facility]/HCC) Neuropathy Stroke (cerebrum) ([facility]) Patient Active Problem List Diagnosis Atrial flutter ([facility]/HCC) Benign prostatic hyperplasia Essential hypertension Human immunodeficiency virus infection ([facility]/HCC) Hyperlipidemia Hypothyroidism Neuralgia and neuritis, unspecified Legal blindness Type 2 diabetes mellitus without complication ([facility]/HCC) Transient ischemic attack Onychomycosis due to dermatophyte Pure hyperglyceridemia Costal chondritis Increased frequency of urination (more content not included)... [facility] 04-18-2024 Note [id number] (age, hypertension, stroke, diabetes). No AF since then - has been on low-dose Eliquis 2.5 mg twice daily per Dr. Khan- no bleeding tendencies noted -s/p ablation 10/17 -Continue metoprolol [facility] 04-18-2024 Note Lipid abnormalities are unchanged. Pharmacotherapy as ordered. Continue crestor, reviewed lipid panel and Chol and LDL were well controlled [facility] 04-18-2024 Note Coronary artery dise ase is unchanged. GDMT toprol, crestor, imdur Continue current treatment regimen. Dietary sodium restriction. Regular aerobic exercise. Continue current medications. Cardiac status will be reassessed in 6 months. [facility] 04-18-2024 Note [facility] II, currently e uvolemic without exacerbation Continue [...] taller/more pillows than normal or in recliner. [facility] 04-17-2024 Note Review of Systems Cardiovascular: Positive for palpitations. Pt complains of one episode of palpitations 3 weeks ago that lasted a couple seconds. He denies all other cardiac symptoms. [facility] 04-17-2024 Note [facility] CARDIOLOGY PROGR ESS [...] chest pain, MEDINA. He was admitted to [facility] in February with GI issues. Potassium [...] g/dL 7.6 EGFR (more content not included)... [facility] 01-02-2024 Note [facility] LVM for patient regarding transition of medical staff manager care. [facility] informed patient of nurse line number for any case management needs until reassigned. [facility] available until 01.08.24 to assist with any transition concerns. [facility] 12-22-2023 Note Since the pain seems to be getting worse, I encouraged him to go back and see the neurosurgeon that evaluated him years ago in [place]. I defer imaging to the specialist [facility] 11-21-2023 Note Application submitte d Eligibility will be faxed to [facility] and care plan updated [facility] 11-21-2023 Note Subjective Patient ID: [place] [...] Coronary artery disease of bypass graft of [place] heart with stable angina pectoris (CMS/HCC) Stage 3b chronic kidney disease (CMS/HCC) Personal history of colonic polyps Anemia Bradycardia Cardiomyopathy, ischemic Diabetes (CMS/HCC) History of myocardial infarction Hx-TIA (transient ischemic attack) Inflammatory polyneuropathy (CMS/HCC) Paroxysmal A-fib (CMS/HCC) Atherosclerotic heart disease Cortical blindness Preventative health care Primary osteoarthritis of both knees Cerebral infarction (CMS/HCC) Displacement of lumbar intervertebral disc without myelopathy [...] Lack of Trans (more content not included)... [facility] 10-24-2023 Note [place] [facility] Consul t Note Reason for visit: [...] chest pain, MEDINA. He was admitted to [facility] in February with GI issues. Potassium [...] ejection fraction of 47% by echocardiogram in 2014. ------ PMH: Past Medical History: Diagnosis Date Abnormal ECG Arrhythmia Back pain herniated disc Coronary artery disease Diabetes ([facility]/HCC) Heart attack ([facility]/HCC) High cholesterol HIV (human immunodeficiency virus infection) ([facility]/HCC) Hyperlipidemia Hypertension Hyperthyroidism Immune system disorder (CMS/HCC) Myocardial infarction ([facility]/HCC) Neuropathy Stroke (cerebrum) ([facility]) PSH: Past Surgical History: Procedure Laterality Date [...] 1 tamsulosin (Flomax (more content not included)... [facility] 10-24-2023 Note Patient here for 6 m o follow up atrial flutter, hypertension, CAD, and chronic systolic heart failure. Says he hasn't been having palpitations. Denies chest pain, SOB, and lightheadedness/syncope. Review of Systems Eyes: Positive for blurred vision and visual disturbance. Musculoskeletal: Positive for arthritis, back pain and myalgias. All other systems reviewed and are negative. [facility] 02-08-2023 Note Chief Complaint consultation for [...] tab(s), Oral, Da (more content not included)... [facility] Comment on above: Result Comment: Elec tronically Signed By: ROSITA LANDEROS, Jose Lewis\Date and Time Signed: 02/08/23 16:19 EDT 03-21-2022 Note CARDIAC STRESS TEST Requesting Physician: Procedure Date:03/21/2022 Lexiscan Stress Test with Myocardial Perfusion Imaging performed at the [facility] on 03/21/2022. Informed consent was obtained. [...] will be reported separately. [facility] Signed and Approved by: DR ELENO JOHNSON 03/29/2022 20:54:00 [facility] Summary Purpose Family History No Family [...] and content) DATE CREATED AUTHOR 04/13/2022 [facility] DATE CREATED AUTHOR AUTHOR'S ORGANIZ ATION 09/26/2022 [facility] DATE CREATED AUTHOR AUTHOR'S ORGANIZ ATION 02/08/2023 [facility] DATE CREATED AUTHOR AUTHOR'S ORGANIZ ATION 06/28/2024 [facility] FOR RECORDS PERTAINING TO PATIENTS WHO ARE [...] BE BASED ON THE PRIMARY CLINICAL RECORDS. [facility]. provides no warranty or guarantee of the accuracy or completeness of information in this document.
== END 2024-07-08 12:26 | disposition home or self-care (01) ==
LOC: MRI 12:25
PROVIDERS: PCP Family Medicine; Visit Provider Family Medicine
DX: M51.26 Other intervertebral disc displacement, lumbar region (principal)
CPT/HCPCS: 72148

== ENCOUNTER 2025-04-11 10:51 | Outpatient (OUT) | payer MEDICARE, SELFPAY ==
--- OUTSIDE RECORDS SUMMARY | 2024-10-18 05:17 | XMS_ITS ---
Author Organization The [facility] in [place] Address [address] [place] [address] Care Team Providers Care [place] Performer Name Role Phone Miguel Murillo Primary Care Provider REASON FOR VISIT Lyrica through [facility] Encounters Encounter Location Date Provider Diagnosis [address] [address] 10/18/2024 Miguel Murillo Plan Of Treatment Next Appt Details Provider Name:Miguel Murillo, 11:15:00 AM, [address] [place], [address], Progress Notes * Champ RAYDOB:1955 (69 yo M)Acc No.[id number]:10/18/2024 Patient: Champ LARES :1955 A ge:69 Y S ex:Male Address:[address] [place] [address] * true * Date: Generated for Printi ng/Faxing/eTransmitting on: 04/11/2025 11:00 AM EDT
--- OUTSIDE RECORDS SUMMARY | 2024-12-11 07:15 | XMS_ITS ---
Author Organization The [facility] in [place] Address [address] [place] [address] Care Team Providers Care Communications Controller Name Role Phone Miguel Murillo Primary Care Provider Allergies Allergen (clinical drug ingredient) Drug/Non Drug Allergy documented on EMR Reaction Allergy Type Onset Date Status stavudine Stavudine Unknown Drug Allergy Active Substance with sulfonamide structure and antibacterial mechanism of action (substance) Sulfa Antibiotics unknown Drug Allergy Active ciprofloxacin Ciprofloxacin unknown Drug Allergy Active ticlopidine Ticlopidine rash Drug Allergy Act nimesh REASON FOR VISIT 3 month f/u Medications Medication SIG (Take, Route, Frequency, Duration) Notes Start Date End Date Status metFORMIN HCl 1000 MG 1 tablet Orally tw ice daily Active Metoprolol Succinate ER 25 MG 1 tablet Orally Once a day Active Levothyroxine Sodium 50 MCG 1 tablet in the morning on an empty stomach Orally Once a day Active Lyrica 100 MG 1 capsule Orally bid Active Jardiance 10 MG 1 tablet Orally Once a day Active Fish Oil 1200 MG 1 capsule Orally Thr ee times a day 06/19/2024 Active Flomax 0.4 MG 1 capsule Orally Onc e a day Active Crestor 20 MG 1 tablet Orally Once a day Active Eliquis 2.5 MG 1 tablet Orally Once daily Active Isosorbide Mononitrate ER 30 MG 1 tablet in the morning Orally Once a day Active traMADol HCl 50 MG 1-2 tablets Orally O nce a day- PRN Active tiZANidine HCl 4 MG 2 tabs Orally qhs fo r 30 days 09/11/2024 Active Prezcobix 800-150 MG 1 tablet Orally Onc e a day Active Tivicay 50 MG 1 tablet Orally Once a day Active Social History Tobacco Use: Social History Observation Description Date Details (start date - stop date) Never Smoker NA - NA Tobacco Use/Smoking Question Answer Notes Patient is a nonsmoker Vital Signs Weight 212.4 lbs 12/11/2024 Height 71 in 12/11/2024 Blood pressure systolic 116 mm Hg 12/12/19 25 Blood pressure diastolic 70 mm Hg 025 BMI 29.62 kg/m2 12/11/2024 Encounters Encounter Location Date Provider Diagnosis [facility] [address] [place] [address] 12/11/2024 Miguel Murillo Paroxysmal a-fib I48 .0 ; Chronic systolic (congestive) heart failure I50.22 ; Diabetes mellitus with hyperglycemia E11.65 ; Chronic kidney disease, stage 3b N18.32 ; Hyperlipemia E78.5 ; Hypothyroidism E03.9 ; Peripheral neuropathy G62.9 ; Lumbar herniated disc M51.26 ; Ischemic cardiomyopathy I25.5 and Pure hyperglyceridemia E78.1 Assessments Encounter Date Diagnosis (ICD Code) Assessment Notes Treatment Notes Treatment Clinical Notes Section Notes 12/11/2024 Paroxysmal a-fib (ICD-10 - I48.0) Rate controlled 12/11/2024 Chronic systolic (congestive) heart failure (ICD-10 - I50.22) no MEDINA 12/11/2024 Diabetes mellitus with hyperglycemia (ICD-10 - E11.65) ecellent control - last [id number] 7.1 12/11/2024 Chronic kidney disease, stage 3b (ICD-10 - N18.32) stable on labs 12/11/2024 Hyperlipemia (ICD-10 - E78.5) 12/11/2024 Hypothyroidism (ICD-10 - E03.9) 12/11/2024 Peripheral neuropath y (ICD-10 - G62.9) 12/11/2024 Lumbar herniated dis c (ICD-10 - M51.26) 12/11/2024 Ischemic cardiomyopathy (ICD-10 - I25.5) 12/11/2024 Pure hyperglyceridemia (ICD-10 - E78.1) Plan Of Treatment Treatment Notes Assessment Notes Paroxysmal a-fib Rate controlled Chronic systolic (congestive) heart fail ure no MEDINA Diabetes mellitus with hyperglycemia hannah llent control - last [id number] 7.1 Chronic kidney disease, stage 3b stable on labs Next Appt Details Provider Name:Miguel Pérez Chidi, 11:15:00 AM, [address] [place], [address], Progress Notes * Champ CONTRERASDOB:1955 (69 yo M)Acc No.[id number]:12/11/2024 Progress Note Patient: Champ LARES Provider: Virgilio Murillo ([facility])MD :1955 A ge:69 Y S ex:Male Date:12/11/2024 Address:[address] [place] [address], [id number] Check In:11:13 AM ESTCheck O ut:12:09 PM EST Subjective: * Chief Complaints: * 3 month f/u * ROS: E ENT: hearing changes d enies. v isual changes d enies.�non-healing mouth sores d enies. s wollen glands or neck lumps d enies. h oarseness d enies. s ore throat d enies. d ifficulty swallowing d enies. n ose bleeds d enies. n jose congestion d enies. e ar ache d enies. e ar discharge�denies. r inging in ears d enies. l ight sensitivity d enies. e ye pain d enies. b lurring d enies. e ye irritation d enies. d ouble vision d enies.�vision loss d enies. G eneral/Constitutional: Sweats: D enies. F atigue d enies. S leep problems d enies. A norexia d enies. M alaise d enies. W eight loss d enies.�Fatigue or Weakness d enies. F ever or Chills d enies. C ardiovascular: Shortness of Breath w/lying flat d enies. L ightheadedness/dizziness d enies. C hest tightness/ heavy pressure d enies. S welling of legs, ankles, or feet d enies. W aking up with shortness of breath d enies. C hest pain denies. P alpitations d enies. W eight gain d enies. R espiratory: Chronic or frequent cough d enies. C oughing up blood�denies. D ifficulty breathing d enies. P roductive cough d enies. S noring�denies. S hortness of breath that awakens from sleep (PND) d enies. C hest pain d enies. S putum production d enies. W heezing d enies. M usculoskeletal: Joint pain d enies. J oint Fluid d enies. B ack pain d enies. K nee pain d enies. N uli pain d enies. J oint Stiffness d enies. M uscle cramps d enies. W eakness of muscles d enies. A rthritis d enies. M uscle aches d enies. P ain in shoulder(s) d enies. S wollen joints d enies. * Active Problem List E78.5 Hyperlipemia Modified On:07/25/2023U Status:confirmed E03.9 Hypothyroidism Modified On:12/20/2023U Status:confirmed I48.0 Paroxysmal a-fib Modified On:12/20/2023 Status:confirmed R00.1 Bradycardia Modified On:07/25/2023 Status:confirmed G62.9 Peripheral neuropath y Modified On:09/20/2023 Status:confirmed E78.1 Hypertriglyceridemia Modified On:07/25/2023U Status:confirmed M51.26 Lumbar herniated dis c Modified On:12/20/2023U Status:confirmed I25.5 Ischemic cardiomyopa thy Modified On:09/20/2023U Status:confirmed 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 Modified On:07/25/2023 Status:confirmed I63.9 CVA (cerebrovascular accident) Modified On:07/25/2023 Status:confirmed B20 History of HIV infec tion Modified On:07/25/2023 Status:confirmed E11.65 Diabetes mellitus wi th hyperglycemia Modified On:12/20/2023U Status:confirmed E78.1 Pure hyperglyceridem ia Modified On:12/16/2022 Status:confirmed I10 BP (high blood press ure) Modified On:06/26/2023 Status:confirmed Z86.010 Personal history of colonic polyps Modified On:03/15/2023 Status:confirmed I48.92 Unspecified atrial f rivaser Modified On:10/27/2023 Status:confirmed I50.22 Chronic systolic (co ngestive) heart failure Modified On:10/27/2023 Status:confirmed N18.32 Chronic kidney disea se, stage 3b Modified On:10/27/2023 Status:confirmed D68.69 Other thrombophilia Modified On:09/11/2024 Status:confirmed I25.118 Atherosclerosis of c oronary artery of [place] heart with stable angina pectoris, unspecified vessel or lesion type Modified On:09/11/2024 Status:confirmed * Medical History: * Surgical History: L eft Heart Cath 11/2006Umbilical Herniorrhaphy with mesh 11/2009PTCA 2005Heart Cath 03/2022 * Hospitalization/Major Diagno stic Procedure: V iral Infection 02/2023 * Family History: F ather: 60 yrs, Heart Attack- passed at 62. M other: 82 yrs, Cancer- skin on nose, diagnosed with Diabetes mellitus without mention of complication, type II or unspecified type, not stated as uncontrolled, Chronic kidney disease, unspecified. S ister(s): ovarian cancer, diagnosed with Unspecified essential hypertension, Chronic kidney disease, unspecified. S on(s): alive. D devendraer(s): alive, Ovarian Cancer- hysterectomy. P aternal Grandfather: stroke. M aternal Grandmother: Colon Cancer. B rother(s): diagnosed with Unspecified essential hypertension. P aternal Grandmother: diagnosed with Diabetes mellitus without mention of complication, type II or unspecified type, not stated as uncontrolled. 2 brother(s) , 6 sister(s) . 1 son(s) , 2 daughter(s) . . * Social History: T obacco Use: T obacco Use/Smoking P atient is a n onsmoker * Medications: T akingCrestor(Rosuvastatin Calcium) 20 MG Tablet 1 tablet Orally Once a day Eliquis(Apixaban) 2.5 MG Tablet 1 tablet Orally Once daily Fish Oil 1200 MG Capsule Delayed Release 1 capsule Orally Three times a day Flomax(Tamsulosin HCl) 0.4 MG Capsule 1 capsule Orally Once a day Isosorbide Mononitrate ER 30 MG Tablet Extended Release 24 Hour 1 tablet in the morning Orally Once a day Jardiance(Empagliflozin) 10 MG Tablet 1 tablet Orally Once a day Levothyroxine Sodium 50 MCG Tablet 1 tablet in the morning on an empty stomach Orally Once a day Lyrica(Pregabalin) 100 MG Capsule 1 capsule Orally bid metFORMIN HCl 1000 MG Tablet 1 tablet Orally twice daily Metoprolol Succinate ER 25 MG Tablet Extended Release 24 Hour 1 tablet Orally Once a day Prezcobix(Darunavir-Cobicistat) 800-150 MG Tablet 1 tablet Orally Once a day Tivicay(Dolutegravir Sodium) 50 MG Tablet 1 tablet Orally Once a day tiZANidine HCl 4 MG Tablet 2 tabs Orally qhs traMADol HCl 50 MG Tablet 1-2 tablets Orally Once a day- PRN Medication List reviewed and reconciled with the patientTaking Crestor(Rosuvastatin Calcium) 20 MG Tablet 1 tablet Orally Once a day Taking Eliquis(Apixaban) 2.5 MG Tablet 1 tablet Orally Once daily Taking Fish Oil 1200 MG Capsule Delayed Release 1 capsule Orally Three times a day Taking Flomax(Tamsulosin HCl) 0.4 MG Capsule 1 capsule Orally Once a day Taking Isosorbide Mononitrate ER 30 MG Tablet Extended Release 24 Hour 1 tablet in the morning Orally Once a day Taking Jardiance(Empagliflozin) 10 MG Tablet 1 tablet Orally Once a day Taking Levothyroxine Sodium 50 MCG Tablet 1 tablet in the morning on an empty stomach Orally Once a day Taking Lyrica(Pregabalin) 100 MG Capsule 1 capsule Orally bid Taking metFORMIN HCl 1000 MG Tablet 1 tablet Orally twice daily Taking Metoprolol Succinate ER 25 MG Tablet Extended Release 24 Hour 1 tablet Orally Once a day Taking Prezcobix(Darunavir-Cobicistat) 800-150 MG Tablet 1 tablet Orally Once a day Taking Tivicay(Dolutegravir Sodium) 50 MG Tablet 1 tablet Orally Once a day Taking tiZANidine HCl 4 MG Tablet 2 tabs Orally qhs Taking traMADol HCl 50 MG Tablet 1- 2 tablets Orally Once a day- PRN Medication List reviewed and reconciled with the patient * Allergies: C iprofloxacin: unknown - AllergySulfa Antibiotics: unknown - AllergyTiclopidine: rashStavudineno[Allergies Verified] Objective: * Vitals: W t:212.4lbs, Ht: 71 in, BP:116/70mm Hg, BMI:29.62Index, Ht-cm: 180.34 cm, Wt-k.34 kg. * Examination: P hysical Exam: GENERAL: w ell developed, well nourished, in no acute distress. HEAD: n ormocephalic/atraumatic. EYES: p upils equal, round and reactive to light, conjunctivae and sclerae normal. EARS: n o deformity or lesion of external ear, canals and TM appear normal bilaterally, TM's intact, not inflamed with normal light reflex, hearing grossly normal to conversational speech. NOSE: n o deformity, discharge, inflammation, or lesions.� MOUTH: m ucous membranes moist, normal oropharynx and posterior pharynx without lesions or exudates, tongue normal, dentition normal. NECK: n uli supple, no masses or palpable cervical nodes, trachea midline, thyroid without nodules, masses, tenderness, or enlargement. CHEST: n o chest wall deformity, no chest wall tenderness.� LUNGS: n ormal respiratory effort and clear to auscultation, no wheezes, rales, or rhonchi, good air exchange. CARDIO: r egular rate and rhythm, normal S1 and S2, nor murmur, rub, or gallop. PULSES: n ormal capillary refill. ABDOMEN: s oft, non-distended, non-tender, no masses. MUSCULOSKELETAL: n o deformity or scoliosis noted, normal range of motion, joints normal, no erythema, edema, effusion, or ecchymosis. EXTREMITY: n o clubbing, cyanosis, edema, or deformity with normal ROM in both upper and lower bilateral extremities. NEUROLOGIC: g rossly normal. SKIN: n o rashes, ulcerations, or suspicious lesions. LYMPH NODES: n o cervical adenopathy, nodes normal. MENTAL STATUS: a lert and oriented x3, normal mood and affect. Assessment: * Assessment: 1. P aroxysmal a-fib - I48.0 (Primary) 2 . C hronic systolic (congestive) heart failure - I50.22 3 . D iabetes mellitus with hyperglycemia - E11.65 � 4 . C hronic kidney disease, stage 3b - N18.32 5 . H yperlipemia - E78.5 6 . H ypothyroidism - E03.9 7 . P eripheral neuropathy - G62.9 8 . L umbar herniated disc - M51.26 9 . I schemic cardiomyopathy - I25.5 1 0. P ure hyperglyceridemia - E78.1 Plan: * Treatment: 2. C hronic systolic (congestive) heart failure Notes: no MEDINA 3. D iabetes mellitus with hyperglycemia Notes: ecellent control - last [id number] 7.1 4. C hronic kidney disease, stage 3b Notes: stable on labs * Procedure Codes: * Preventive Medicine: Screenings/Counseling: B AL ACTION PLAN Above Normal BMI Follow-up D ietary management education, guidance, and counseling * * Sign off status: Completed Visit Status: C HK (Check Out) true * Provider: Virgilio Murillo ([facility])MD Date: 12/11/2024 Generated for Nataliya carolina/Bobo/eTransmitting on: 0 04/11/2025 11:00 AM EDT History and Physical Notes * Examination Category Sub-Category Detail Notes Category Not es Physical Exam GENERAL: well developed, well nourished, in no acute distress HEAD: normocephalic/atraum atic EYES: pupils equal, round and reactive to light, conjunctivae and sclerae normal EARS: no deformity or lesi on of external ear, canals and TM appear normal bilaterally, TM's intact, not inflamed with normal light reflex, hearing grossly normal to conversational speech NOSE: no deformity, discha rge, inflammation, or lesions MOUTH: mucous membranes rosendo st, normal oropharynx and posterior pharynx without lesions or exudates, tongue normal, dentition normal NECK: neck supple, no mass es or palpable cervical nodes, trachea midline, thyroid without nodules, masses, tenderness, or enlargement CHEST: no chest wall deform ity, no chest wall tenderness LUNGS: normal respiratory e ffort and clear to auscultation, no wheezes, rales, or rhonchi, good air exchange CARDIO: regular rate and rhy thm, normal S1 and S2, nor murmur, rub, or gallop PULSES: normal capillary ref ill ABDOMEN: soft, non-distended, non-tender, no masses RECTAL: MUSCULOSKELETAL: no deformity or scol iosis noted, normal range of motion, joints normal, no erythema, edema, effusion, or ecchymosis EXTREMITY: no clubbing, cyanosi s, edema, or deformity with normal ROM in both upper and lower bilateral extremities NEUROLOGIC: grossly normal SKIN: no rashes, ulceratio ns, or suspicious lesions LYMPH NODES: no cervical adenopat hy, nodes normal MENTAL STATUS: alert and oriented x 3, normal mood and affect
--- OUTSIDE RECORDS SUMMARY | 2025-03-10 07:15 | XMS_ITS ---
Author Organization [facility] [place] Address [address] [place] [address] Care Team Providers Care Plating Technician Name Role Phone Miguel Murillo Primary Care Provider [phone] Allergies Allergen (clinical drug ingredient) Drug/Non Drug Allergy documented on EMR Reaction Allergy Type Onset Date Status stavudine Stavudine Unknown Drug Allergy Active Substance with sulfonamide structure and antibacterial mechanism of action (substance) Sulfa Antibiotics unknown Drug Allergy Active ciprofloxacin Ciprofloxacin unknown Drug Allergy Active ticlopidine Ticlopidine rash Drug Allergy Act nimesh REASON FOR VISIT Presents to office alone for 3 month check up, Has list of sugars to review Medications Medication SIG (Take, Route, Frequency, Duration) Notes Start Date End Date Status Metoprolol Succinate ER 25 MG 1 tablet Orally Once a day Active Prezcobix 800-150 MG 1 tablet Orally Onc e a day Active Tivicay 50 MG 1 tablet Orally Once a day Active tiZANidine HCl 4 MG 2 tabs Orally qhs fo r 30 days 09/11/2024 Active traMADol HCl 50 MG 1-2 tablets Orally O nce a day- PRN Active Jardiance 10 MG 1 tablet Orally Once a day Active Levothyroxine Sodium 50 MCG 1 tablet in the morning on an empty stomach Orally Once a day Active Lyrica 100 MG 1 capsule Orally bid Active metFORMIN HCl 1000 MG 1 tablet Orally tw ice daily Active Isosorbide Mononitrate ER 30 MG 1 tablet in the morning Orally Once a day Active Crestor 20 MG 1 tablet Orally Once a day Active Eliquis 2.5 MG 1 tablet Orally Once daily Active Fish Oil 1200 MG 1 capsule Orally Thr ee times a day 06/19/2024 Active Flomax 0.4 MG 1 capsule Orally Onc e a day Active Social History Tobacco Use: Social History Observation Description Date Details (start date - stop date) Never Smoker NA - NA Tobacco Use/Smoking Question Answer Notes Patient is a nonsmoker AUDIT-C (Standard) Question Answer Notes Did you have a drink containing alcohol in the p ast year? No Points 0 Interpretation Negative Vital Signs Weight 215.8 lbs 03/10/2025 Height 71 in 03/10/2025 Blood pressure systolic 140 mm Hg 03/10/20 25 Blood pressure diastolic 66 mm Hg 025 BMI 30.09 kg/m2 03/10/2025 Encounters Encounter Location Date Provider Diagnosis [facility] [address] [place] [address] 03/10/2025 Miguel Murillo Hypothyroidism E03.9 ; Lumbar herniated disc M51.26 ; Hyperlipemia E78.5 and Diabetes mellitus with hyperglycemia E11.65 Assessments Encounter Date Diagnosis (ICD Code) Assessment Notes Treatment Notes Treatment Clinical Notes Section Notes 03/10/2025 Hypothyroidism (ICD-10 - E03.9) revieweed la bs 03/10/2025 Lumbar herniated disc (ICD-10 - M51.26) pain controlled 03/10/2025 Hyperlipemia (ICD-10 - E78.5) on chol 03/10/2025 Diabetes mellitus with hyperglycemia (ICD-10 - E11.65) stabel with meds Plan Of Treatment Treatment Notes Assessment Notes Hypothyroidism revieweed la bs Lumbar herniated disc pain controlled Hyperlipemia on chol Diabetes mellitus with hyperglycemia sta bel with meds Next Appt Details Provider Name:Miguel Beto Abhinavamadou, 11:15:00 AM, [address] [place], [address], Progress Notes * Champ RAYDOB:1955 (70 yo M)Acc No.[id number]:03/10/2025 Progress Note Patient: Champ LARES Provider: Virgilio Murillo ([facility])MD :1955 A ge:70 Y S ex:Male Date:03/10/2025 Address:[address] [place], [place] [address], [id number] Check In:11:17 AM ESTCheck O ut:11:51 AM EST Subjective: * Chief Complaints: * P resents to office alone for 3 month check upHas list of sugars to review * ROS: E ENT: hearing changes d [...] * Active Problem List E78.5 Hyperlipemia Modified On:07/25/2023 Status:confirmed E03.9 Hypothyroidism Modified On:12/20/2023 Status:confirmed I48.0 Paroxysmal a-fib Modified On:12/20/2023 Status:confirmed R00.1 Bradycardia Modified On:07/25/2023 Status:confirmed G62.9 Peripheral neuropath y Modified On:09/20/2023 Status:confirmed E78.1 Hypertriglyceridemia Modified On:07/25/2023 Status:confirmed M51.26 Lumbar herniated dis c Modified On:12/20/2023 Status:confirmed I25.5 Ischemic cardiomyopa thy Modified On:09/20/2023 Status:confirmed 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 Modified On:07/25/2023 Status:confirmed I63.9 CVA (cerebrovascular accident) Modified On:07/25/2023 Status:confirmed B20 History of HIV infec tion Modified On:07/25/2023 Status:confirmed E11.65 Diabetes mellitus wi th hyperglycemia Modified On:12/20/2023 Status:confirmed E78.1 Pure hyperglyceridem ia Modified On:12/16/2022 Status:confirmed I10 BP (high blood press ure) Modified On:06/26/2023 Status:confirmed Z86.010 Personal history of colonic polyps Modified On:03/15/2023 Status:confirmed I48.92 Unspecified atrial f lutter Modified On:10/27/2023 Status:confirmed I50.22 Chronic systolic (co ngestive) heart failure Modified On:10/27/2023 Status:confirmed N18.32 Chronic kidney disea se, stage 3b Modified On:10/27/2023 Status:confirmed D68.69 Other thrombophilia Modified On:09/11/2024W/U Status:confirmed I25.118 Atherosclerosis of c oronary artery of [place] heart with stable angina pectoris, unspecified vessel or lesion type Modified On:09/11/2024W/U Status:confirmed * Medical History: * Surgical History: [...] Use/Smoking P atient is a n onsmoker D rug/Alcohol: A MIKAELA-C (Standard) D id you have a drink containing alcohol in the past year? N o P oints 0 I nterpretation N egative * Medications: T akingCrestor(Rosuvastatin Calcium) 20 MG Tablet 1 tablet Orally Once a day Eliquis(Apixaban) 2.5 MG Tablet 1 tablet Orally Once daily Fish Oil 1200 MG Capsule Delayed Release 1 capsule Orally Three times a day Flomax 0.4 MG Capsule 1 capsule Orally Once [...] capsule Orally Three times a day Taking Flomax 0.4 MG Capsule 1 capsule Orally Once [...] AllergyTiclopidine: rashStavudineno[Allergies Verified] Objective: * Vitals: W t:215.8lbs, Ht: 71 in, BP:140/66mm Hg, BMI:30.09Index, Ht-cm: 180.34 cm, Wt-k.89 kg. * Examination: P hysical Exam: GENERAL: [...] mood and affect. Assessment: * Assessment: 1. H ypothyroidism - E03.9 (Primary) 2 . L umbar herniated disc - M51.26� 3. H yperlipemia - E78.5 4 . D iabetes mellitus with hyperglycemia - E11.65 Plan: * Treatment: 2. L umbar herniated disc Notes: pain controlled 3. H yperlipemia Notes: on chol 4. D iabetes mellitus with hyperglycemia Notes: stabel with meds * Procedure Codes: * Preventive Medicine: Screenings/Counseling: B TX ACTION PLAN Above Normal BMI Follow-up D ietary management education, guidance, and counseling See treatment section of progress note for complete details of management plan. F ALL RISK SCREENING Fall Risk Assessment: N o falls in the past year * * Sign off status: Completed Visit Status: C HK (Check Out) true * Provider: Virgilio Murillo (TTC)MD Date: 0 03/10/2025 Generated for Printi ng/Faxing/eTransmitting on: 0 04/11/2025 11:00 AM EDT History [...]
--- OUTSIDE RECORDS SUMMARY | 2025-04-11 11:00 | XMS_ITS | Clinical Summary ---
Author Organization [facility] Address [address] [place] [address] Care Team Providers Care Automotive Artist Name Role Phone Unavailable Primary Care Provider Unavailabl e Social History Tobacco Use Types Packs/Day Years Used Date Smoking Tobacco: Never Assessed Sex and Gender Information Value Date Recorded Sex Assigned at Not on file Legal Sex Male 7:19 PM EDT Gender Identity Not on file Sexual Orientation Not on file Plan of Treatment Not on file
--- OUTSIDE RECORDS SUMMARY | 2025-04-11 11:01 | XMS_ITS | Patient Health Record ---
Author Organization [facility] [place] Address [address] [place] [address] Care Team Providers Care Technology Services Manager Name Role Phone Miguel Sheets Primary Care Provider [phone] Allergies Allergen (clinical drug ingredient) Drug/Non Drug Allergy documented on EMR Reaction Allergy Type Onset Date Status stavudine Stavudine Unknown Drug Allergy Active Substance with sulfonamide structure and antibacterial mechanism of action (substance) Sulfa Antibiotics unknown Drug Allergy Active ciprofloxacin Ciprofloxacin unknown Drug Allergy Active ticlopidine Ticlopidine rash Drug Allergy Act nimesh Results Component Value Reference Range Notes XR lumbar spine min 4V Reviewed date:06/21/2024 08:08:13 AM Interpretation: Performing Lab: Notes/Report: Source Facility: [place] [address] XRay Report Signed Patient: CHAMP CONTRERAS MR#: [id number] : 1955 Acct:[id number] Age/Sex: 69 / M ADM Date: 06/19/24 Loc: RAD Attending Dr: Jonas Sheets M.D. Ordering Physician: Jonas Sheets M.D. Date of Service: 06/19/24 Procedure(s): XR lumbar spine min 4V Accession Number(s): [id number] cc: Jonas Sheets M.D. [place] [address] Patient Name: CHAMP CONTRERAS MRN: [id number] date: 1955 Sex: M Assigned Patient Location: RAD Current Patient Location: Accession/Order Number: [id number] Exam Date: 06/19/2024 13:15 Report Date: 06/21/2024 06:35 At the request of: JONAS SHEETS Procedure: XR lumbar spine min 4V EXAMINATION: XR lumbar spine min 4V HISTORY: Lumbar Herniated Disc M51.26 ; chronic low back pain increasing in severity since falling one month ago; left leg pain COMPARISON: No relevant comparison available. FINDINGS: BONES: Slight anterior wedging of L1 vertebral body without increased trabecular density. Normal height and alignment of the remaining lumbar vertebral bodies. Mild/moderate degenerative facet arthropathy L4-L5, L5-S1. DISC SPACES: Marked narrowing L5-S1. PARASPINOUS: Negative. No paraspinous abnormality is seen. OTHER: Negative. XR/XR lumbar spine min 4V IMPRESSION: 1. Mild compression fracture of L1; age indeterminant but suspected to be chronic. 2. L5-S1 marked degenerative disc disease and moderate degenerative facet arthropathy. Electronically authenticated by: PEDRO GUNN Date: 06/21/2024 06:35 Dictated By: Pedro Gunn M.D. Signed By: 06/21/2437 DD/ TD/TT: Ccnp: [place] [id number] XRay Report Signed Patient: CHAMP CONTRERAS MR#: [id number] : 1955 Acct:[id number] Age/Sex: 69 / M ADM Date: 06/19/24 Loc: RAD Attending Dr: Jonas Sheets M.D. Ordering Physician: Jonas Sheets M.D. Date of Service: 06/19/24 Procedure(s): XR lum bar spine min 4V Accession Number(s): [id number] cc: Jonas Sheets M.D. [address] [address] Patient Name: CHAMP CONTRERAS MRN: [id number] date: 1955 Sex: M Assigned Patient Location: RAD Current Patient Location: Accession/Order Numb er: [id number] Exam Date: 06/19/2024 13:15 Report Date: 06/21/2024 06:35 At the request of: JONAS SHEETS Procedure: XR lumbar spine min 4V EXAMINATION: XR lumb ar spine min 4V HISTORY: Lumbar Ginette iated Disc M51.26 ; chronic low back pain increasing in severity since falli ng one month ago; left leg pain COMPARISON: No relev ant comparison available. FINDINGS: BONES: Slight anteri or wedging of L1 vertebral body without increased trabecular density. Normal height and alignment of the remaining lumbar vertebral bodies. Mi ld/moderate degenerative facet arthropathy L4-L5, L5-S1. DISC SPACES: Marked narrowing L5-S1. PARASPINOUS: Negativ e. No paraspinous abnormality is seen. OTHER: Negative. X R/XR lumbar spine min 4V IMPRESSION: 1. Mild compression fracture of L1; age indeterminant but suspected to be chronic. 2. L5-S1 marked dege nerative disc disease and moderate degenerative facet arthropathy. Electronically authe nticated by: PEDRO GUNN Date: 06/21/2024 06:35 Dictated By: Pedro Gunn M.D. Signed By: 06/21/24 0637 DD/ TD/TT: Ccnp: MR lumbar spine wo con Reviewed date:07/08/2024 08:09:44 PM Interpretation: Performing Lab: Notes/Report: Source Facility: [place] [address] [place] [address] Magnetic Resonance Report Signed Patient: CHAMP CONTRERAS MR#: [id number] : 1955 Acct:[id number] Age/Sex: 69 / M ADM Date: 07/08/24 Loc: MRI Attending Dr: Jonas Sheets M.D. Ordering Physician: Jonas Sheets M.D. Date of Service: 07/08/24 Procedure(s): MR lumbar spine wo con Accession Number(s): [id number] cc: Jonas Sheets M.D. [facility] [place] [address] Patient Name: CHAMP CONTRERAS MRN: [id number] date: 1955 Sex: M Assigned Patient Location: MRI Current Patient Location: MRI Accession/Order Number: [id number] Exam Date: 07/08/2024 12:37 Report Date: 07/08/2024 13:51 At the request of: JONAS SHEETS Procedure: MR lumbar spine wo con EXAMINATION: MR lumbar spine wo con HISTORY: Lumbar Herniated Disc COMPARISON: No relevant comparison available. TECHNIQUE: A variety of imaging planes and parameters were utilized for visualization of suspected pathology. FINDINGS: For the purposes of numbering, sagittal T2 image # 8 extends from the T11 vertebral body superiorly to the S2-S3 level inferiorly. PARASPINAL AREA: Normal with no visible mass. BONES: Normal alignment with no acute fracture, dislocation or bone edema. Mild heterogeneous marrow signal is likely age-related change CORD/CAUDA EQUINA: Normal caliber, contour, and signal intensity. DISC LEVELS: 12-L1: Early degenerative disc disease is present without focal protrusion or neural impingement. L1-L2: Early degenerative disc disease is present without focal protrusion or neural impingement. L2-L3: Early degenerative disc disease is present without focal protrusion or neural impingement. L3-L4: Early degenerative disc disease is present without focal protrusion or neural impingement. L4-L5: Moderate degenerative disc disease is present without visible neural impingement. L5-S1: Moderate degenerative disc disease is present without visible neural impingement. MR/MR lumbar spine wo con IMPRESSION: Mild to moderate discogenic changes. No significant central or foraminal stenosis Electronically authenticated by: BRIAN LITTLEJOHN Date: 07/08/2024 13:51 Dictated By: Brian Littlejohn M.D. Signed By: 07/08/24 1353 DD/ 1351 TD/TT: Ccnp: [place] [address] Magnetic Resonance Report Signed Patient: CHAMP CONTRERAS MR#: [id number] : 1955 Acct:[id number] Age/Sex: 69 / M ADM Date: 07/08/24 Loc: MRI Attending Dr: Jonas Sheets M.D. Ordering Physician: Jonas Sheets M.D. Date of Service: 07/08/24 Procedure(s): MR lum bar spine wo con Accession Number(s): [id number] cc: Jonas Sheets M.D. The [place] [id number] Patient Name: CHAMP CONTRERAS MRN: [id number] date: 1955 Sex: M Assigned Patient Location: MRI Current Patient Location: MRI Accession/Order Numb er: [id number] Exam Date: 12:37 Report Date: 07/08/2024 13:51 At the request of: JONAS SHEETS Procedure: MR lumbar spine wo con EXAMINATION: MR lumb ar spine wo con HISTORY: Lumbar Herniated Disc COMPARISON: No relev ant comparison available. TECHNIQUE: A variety of imaging planes and parameters were utilized for visualization of tom pected pathology. FINDINGS: For the purposes of numbering, sagittal T2 image # 8 extends from the T11 vertebral body super iorly to the S2-S3 level inferiorly. PARASPINAL AREA: Nor mal with no visible mass. BONES: Normal alignm ent with no acute fracture, dislocation or bone edema. Mild heterogeneous marrow signal is likely age-related change CORD/CAUDA EQUINA: N ormal caliber, contour, and signal intensity. DISC LEVELS: 12-L1: Early degener ative disc disease is present without focal protrusion or neural impingement. L1-L2: Early degener ative disc disease is present without focal protrusion or neural impingement. L2-L3: Early degener ative disc disease is present without focal protrusion or neural impingement. L3-L4: Early degener ative disc disease is present without focal protrusion or neural impingement. L4-L5: Moderate dege nerative disc disease is present without visible neural impingement. L5-S1: Moderate dege nerative disc disease is present without visible neural impingement. M R/MR lumbar spine wo con IMPRESSION: Mild to moderate dis cogenic changes. No significant central or foraminal stenosis Electronically authe nticated by: BRIAN LITTLEJOHN Date: 07/08/2024 13:51 Dictated By: Brian Littlejohn M.D. Signed By: 07/08/24 8692 DD/ 1351 TD/TT: Ccnp: Reason For Referral No Information Medications Medication SIG (Take, Route, Frequency, Duration) Notes Start Date End Date Status Prezcobix 800-150 MG 1 tablet Orally Onc e a day Active Crestor 20 MG 1 tablet Orally Once a day Active Tivicay 50 MG 1 tablet Orally Once a day Active Eliquis 2.5 MG 1 tablet Orally Once daily Active tiZANidine HCl 4 MG 2 tabs Orally qhs fo r 30 days 09/11/2024 Active Fish Oil 1200 MG 1 capsule Orally Thr ee times a day 06/19/2024 Active traMADol HCl 50 MG 1-2 tablets Orally O nce a day- PRN Active Flomax 0.4 MG 1 capsule Orally Onc e a day Active Isosorbide Mononitrate ER 30 MG 1 tablet in the morning Orally Once a day Active Jardiance 10 MG 1 tablet Orally Once a day Active Levothyroxine Sodium 50 MCG 1 tablet in the morning on an empty stomach Orally Once a day Active Lyrica 100 MG 1 capsule Orally bid Active metFORMIN HCl 1000 MG 1 tablet Orally tw ice daily Active Metoprolol Succinate ER 25 MG 1 tablet Orally Once a day Active Immunizations Vaccine Route Administration Date Status Comme nts Flu, Fluad (90526) 65 yrs+, single-dose syringe (8835-4861) IM Intramuscular 07/25/2023 Administered Social History Tobacco Use: Social History Observation Description Date Details (start date - stop date) Never Smoker NA - NA Tobacco Use/Smoking Question Answer Notes Patient is a nonsmoker Alcohol Screen (Audit-C) Question Answer Notes Did you have a drink containing alcohol in the p ast year? No Points 0 Interpretation Negative AUDIT-C (Standard) Question Answer Notes Did you have a drink containing alcohol in the p ast year? No Points 0 Interpretation Negative Problems Problem Type SNOMED Code ICD Code Onset Dates Problem Status W/U Status Risk Notes Problem Thrombophilia (723771909) Other thrombophilia (D68.69) Active confirmed Problem Pure hyperglyceridemia (582468008) Pure hyperglyceridemia (E78.1) Active confirmed Problem Ischemic cardiomyopathy (802543695) Ischemic cardiomyopathy (I25.5) Active confirmed Problem 8412223 Unspecified atri al flutter (I48.92) Active confirmed Problem 408426269 Chronic systolic (congestive) heart failure (I50.22) Active confirmed Problem 974835514 Personal history of colonic polyps (Z86.010) Active confirmed Problem Hyperlipidaemia (78839513) Hyperlipemia (E78.5) Active confirmed Problem Hypothyroidism (83157817) Hypothyroidism (E03.9) Active confirmed Problem Atrial fibrillation (16065604) Paroxysmal a-fib (I48.0) Active confirmed Problem Bradycardia (81710780) Bradycardia (R00.1) Active confirmed Problem Peripheral neuropath y (087002822) Peripheral neuropathy (G62.9) Active confirmed Problem Hypertriglyceridemia (227080554) Hypertriglyceridemia (E78.1) Active confirmed Problem Displacement of lumbar intervertebral disc without myelopathy (21686169) Lumbar herniated disc (M51.26) Active confirmed Problem Hyperglycemia due to type 2 diabetes mellitus (031224971248940) Diabetes mellitus with hyperglycemia (E11.65) Active confirmed Problem Cortical blindness (85793343) 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 confirmed Problem Cerebral infarction (982621529) CVA (cerebrovascular accident) (I63.9) Active confirmed Problem Essential hypertension (45289489) BP (high blood pressure) (I10) Active confirmed Problem Stable angina due to coronary arteriosclerosis (disorder) (72268699744800601) Atherosclerosis of coronary artery of [place] heart with stable angina pectoris, unspecified vessel or lesion type (I25.118) Active confirmed Problem Human immunodeficiency virus infection (72952872) History of HIV infection (B20) Active confirmed Problem 552144847 Chronic kidney disease, stage 3b (N18.32) Active confirmed Vital Signs Blood pressure diastolic 66 mm Hg 03/10/2025 Height 71 in 03/10/2025 Blood pressure systolic 140 mm Hg 03/10/2025 Weight 215.8 lbs 03/10/2025 BMI 30.09 kg/m2 03/10/2025 Encounters Encounter Location Date Provider Diagnosis [facility] [address] [place] [address] 06/21/2024 [facility] [address] [place] [address] 07/08/2024 Miguel [facility] [address] [place] [address] 10/18/2024 Miguel Hoy [facility] [address] [address] 06/19/2024 Miguel Hoy Hypothyroidism E03.9 ; Lumbar herniated disc M51.26 ; Pure hyperglyceridemia E78.1 and BP (high blood pressure) I10 [address] [address] 09/11/2024 Miguel Hoy Other thrombophilia D68.69 ; Atherosclerosis of coronary artery of [place] heart with stable angina pectoris, unspecified vessel or lesion type I25.118 ; Chronic systolic (congestive) heart failure I50.22 ; Diabetes mellitus with hyperglycemia E11.65 and Lumbar herniated disc M51.[address] [address] 12/11/2024 Miguel Sheets Paroxysmal a-fib I48 .0 ; Chronic systolic (congestive) heart failure I50.22 ; Diabetes mellitus with hyperglycemia E11.65 ; Chronic kidney disease, stage 3b N18.32 ; Hyperlipemia E78.5 ; Hypothyroidism E03.9 ; Peripheral neuropathy G62.9 ; Lumbar herniated disc M51.26 ; Ischemic cardiomyopathy I25.5 and Pure hyperglyceridemia E78.1 [place] [address] [place] [address] 03/10/2025 Miguel Sheets Hypothyroidism E03.9 ; Lumbar herniated disc M51.26 ; Hyperlipemia E78.5 and Diabetes mellitus with hyperglycemia E11.65 Assessments Encounter Date Diagnosis (ICD Code) Assessment Notes Treatment Notes Treatment Clinical Notes Section Notes 06/19/2024 Hypothyroidism (ICD-10 - E03.9) 06/19/2024 Lumbar herniated dis c (ICD-10 - M51.26) repeat MRI - sounds like progressive 09/11/2024 Other thrombophilia (ICD-10 - D68.69) 09/11/2024 Atherosclerosis of coronary artery of [place] heart with stable angina pectoris, unspecified vessel or lesion type (ICD-10 - I25.118) 12/11/2024 Paroxysmal a-fib (ICD-10 - I48.0) Rate controlled 03/10/2025 Hypothyroidism (ICD-10 - E03.9) revieweed la bs 03/10/2025 Lumbar herniated dis c (ICD-10 - M51.26) pain controlled 03/10/2025 Hyperlipemia (ICD-10 - E78.5) on chol 12/11/2024 Chronic systolic (congestive) heart failure (ICD-10 - I50.22) no MEDINA 09/11/2024 Chronic systolic (congestive) heart failure (ICD-10 - I50.22) 06/19/2024 Pure hyperglyceridemia (ICD-10 - E78.1) 06/19/2024 BP (high blood pressure) (ICD-10 - I10) 09/11/2024 Diabetes mellitus with hyperglycemia (ICD-10 - E11.65) 12/11/2024 Diabetes mellitus with hyperglycemia (ICD-10 - E11.65) ecellent control - last [id number] 7.1 03/10/2025 Diabetes mellitus with hyperglycemia (ICD-10 - E11.65) stabel with meds 12/11/2024 Chronic kidney disease, stage 3b (ICD-10 - N18.32) stable on labs 12/11/2024 Hyperlipemia (ICD-10 - E78.5) 09/11/2024 Lumbar herniated dis c (ICD-10 - M51.26) inc dose lytica 12/11/2024 Hypothyroidism (ICD-10 - E03.9) 12/11/2024 Peripheral neuropath y (ICD-10 - G62.9) 12/11/2024 Lumbar herniated dis c (ICD-10 - M51.26) 12/11/2024 Ischemic cardiomyopathy (ICD-10 - I25.5) 12/11/2024 Pure hyperglyceridemia (ICD-10 - E78.1) Plan Of Treatment Pending Test Test Name Order Date MRI LSPINE WO CON 06/19/2024 XR LSPINE MIN 4 VIEWS 06/19/2024 Next Appt Details Provider Name:Miguel Sheets, 11:15:00 AM, [address] [place], [address], Insurance Providers Payer Name Payer Address Payer Phone Subscriber Number Group Number Insured Name Patient Relationship to Insured Coverage Start Date Coverage End Date [employer]AN [address] [place] [phone] [id number] [id number] Self - patient is the insured 8 Medical (General) History Medical History History ICD Code Paroxysmal a-fib I48.0 Cortical blindness H47.619 Bradycardia R00.1 CVA (cerebrovascular accident) I63.9 Diabetes mellitus type 2, uncontrolled E 11.65 Lumbar herniated disc M51.26 History of HIV infection B20 Hyperlipemia E78.5 Hypertension I10 Hypertriglyceridemia E78.1 Hypothyroidism E03.9 Ischemic cardiomyopathy I25.5 Peripheral neuropathy G62.9 Shoulder impingement syndrome, right M75 .41 Sciatica M54.30 Surgical History Surgery Date(Month/Year) Left Heart Cath 11/2006 Umbilical Herniorrhaphy with mesh 11/2009 [facility] 2004 Heart Cath 03/2022 Hospitalization History Reason Date(Month/Year) Viral Infection 02/2023
--- OUTSIDE RECORDS SUMMARY | 2025-04-11 11:01 | XMS_ITS | Clinical Summary ---
Author Organization [facility] Address [id number] [address] [place] [address] Care Team Providers Care Prefabricator Name Role Phone Unavailable Primary Care Provider Unavailabl e Immunizations Immunization Administration Dates Next Due COVID-19, mRNA, LNP-S, PF, 100mcg/0.5mL Dose ,12/22/2020 Social History Tobacco Use Types Packs/Day Years Used Date Smoking Tobacco: Never Assessed Childcare Answer Date Recorded Childcare Unknown 03/06/2019 Employment Answer Date Recorded Employment Unknown 03/06/2019 Sex and Gender Information Value Date Recorded Sex Assigned at Not on file Legal Sex Male 5:42 PM EDT Gender Identity Not on file Sexual Orientation Not on file Plan of Treatment Health Maintenance Due Date Last Done Comments Depression Screening 1965 Tobacco Screening 1965 Adult BMI Screening 1971 Zoster (Shingles) Vaccine (1 of 2) 2003 Fall Risk Screening 2018 DTaP,Tdap and Td Vaccines (2 - Td or Tdap) 06/28/2021 06/28/2011 COVID-19 Vaccine (3 - 2023-2 5 season) 2024 01/19/2021, 12/22/2020 Influenza Vaccine 05/26/2025 08/19/2020, , 06/27/2017, Additional history exists Medical Devices Not on file Insurance [employer]
--- OUTSIDE RECORDS SUMMARY | 2025-04-11 11:17 | XMS_ITS | CCD ---
Author Organization [facility] Care Team Providers Care Sales Architect Name Role Phone JONAS MURILLO Primary Care [...] Unavailable HOY, DR MCDANIEL Primary Care Unavailable WASHINGTON, DR BRIAN Cuevas Consulting Unavailable MOUKARBEL, DR JOHANSEN Admitting Unavailable ALEX, DR JOHANSEN Consulting Unavailable NILJose Chatman Attending Unavailable Jonas Murillo Referring Unavailable SHERRON, ARLEN Referring Unavailable SHERRON, ARLEN Referring Unavailable SHERRON, ARLEN Referring Unavailable SHERRON, ARLEN Referring Unavailable SHERRON, ARLEN Referring Unavailable ROXY, JADA Referring Unavailable GEORGESCU, SUSHILA A Attending Unavailable SHERRON, ARLEN Referring Unavailable SHERRON, ARLEN Referring Unavailable ROXY, JADA Referring Unavailable TWIN SERRANO Attending Unavailable ALLYSON BOYD Attending Unavailable SHERRON, ARLEN Referring Unavailable SHERRON, ARLEN Referring Unavailable GEORGESCU, SUSHILA A Attending Unavailable SHERRON, ARLEN Referring Unavailable SHERRON, ARLEN Referring Unavailable SHERRON, ARLEN Referring Unavailable Allergies Allergy Classification Reported Allergen(s) Allergy Type Date of Onset Reaction(s) Facility (3 sources) liothyronine Drug Allergy 9 [facility] Repository (1 source) Stavudine Drug Allergy 1 [facility] Repository (1 source) Ciprofloxacin; Translations: [Cipro] Drug Allergy [facility] Repository (1 source) Sulfonamides (Antibiotic); Translations: [sulfa drugs] Propensity to adverse reactions (disorder) [facility] Repository (1 source) Ciprofloxacin; Translations: [CIPROFLOXACIN] Drug Allergy 3 [facility] Repository (1 source) Stavudine; Translations: [STAVUDINE] Drug Allergy 4 [facility] Repository (1 source) Sulfonamides (Antibiotic); Translations: [SULFA (SULFONAMIDE ANTIBIOTICS)] Propensity to adverse reactions to drug (disorder) 3 [facility] Repository (1 source) Ticlopidine; Translations: [TICLOPIDINE] Drug Allergy 4 [facility] Repository Problems Active Problems Problem Classification Problem Date Documented Date Episodic/Chronic Abdominal pain (4 sources) Unspecified abdominal pain; Translations: [UNSPECIFIED ABDOMINAL PAIN] Onset: 09-14-2022 Episodic Blindness and vision defects (2 sources) Legal blindness, as defined in [place]; Translations: [Legal blindness, as defined in [place]] Onset: 06-09-2022 Chronic Cardiac dysrhythmias (13 sources) Unspecified atrial flutter; Translations: [Junctional premature depolarization] Onset: 12-24-2021 Chronic Complication of device; implant or graft (2 sources) Atherosclerosis of coronary artery bypass graft(s), unspecified, with other forms of angina pectoris; Translations: [Atherosclerosis of coronary artery bypass graft(s), unspecified, with other forms of angina pectoris] Onset: 12-03-2022 Chronic Congestive heart failure; nonhypertensive (2 sources) Chronic systolic (congestive) heart failure; Translations: [Chronic systolic (congestive) heart failure] Onset: 12-03-2022 Chronic Coronary atherosclerosis and other heart disease (2 sources) Atherosclerotic heart disease of [place] coronary artery without angina pectoris; Translations: [Old myocardial infarction] Onset: 12-29-2021 Chronic Deficiency and other anemia (1 source) Anemia, unspecified; Translations: [ANEMIA UNSPECIFIED] Onset: 09-22-2022 Episodic Diabetes mellitus without complication (2 sources) Type 2 diabetes mellitus without complications; Translations: [Type 2 diabetes mellitus without complications] Onset: 10-29-2024 Chronic Disorders of lipid metabolism (2 sources) Hyperlipidemia, unspecified; Translations: [Hyperlipidemia, unspecified] Onset: 11-05-2024 Chronic Essential hypertension (3 sources) Essential (primary) hypertension; Translations: [ESSENTIAL PRIMARY HYPERTENSION] Onset: 12-29-2021 Chronic HIV infection (5 sources) Asymptomatic human immunodeficiency virus [HIV] infection status; Translations: [Human immunodeficiency virus [HIV] disease] Onset: 12-29-2021 Chronic Hyperplasia of prostate (1 source) Benign prostatic hyperplasia without lower urinary tract symptoms; Translations: [BENIGN PROSTATIC HYPRPLASIA WO LUTS] Onset: 12-29-2021 Chronic Other nutritional; endocrine; and metabolic disorders (1 source) Abnormal weight loss; Translations: [ABNORMAL WEIGHT LOSS] Onset: 09-22-2022 Episodic Residual codes; unclassified (1 [...] dysrhythmias (2 sources) Palpitations; Translations: [Palpitations] Onset: 08-14-2024 Episodic Coronary atherosclerosis and other heart disease (1 source) Presence of aortocoronary bypass graft; Translations: [PRESENCE AORTOCORONARY BYPASS GRAFT] Onset: 12-29-2021 Episodic Other aftercare (1 source) [employer] (current) use of aspirin; Translations: [SENIOR LIVING CURRENT USE OF ASPIRIN] Onset: 12-29-2021 Episodic Other aftercare (1 source) [facility] (current) use of 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/anti platelets; Translations: [UNDERWEAR FINISHER ANTITHROMBOT/ANTIPLA TLETS] Onset: 12-29-2021 Episodic Other aftercare (1 source) [facility] (current) use of oral hypoglycemic drugs; Translations: [SENIOR LIVING USE ORAL HYPOGLYCEMIC DX] Onset: 12-29-2021 Episodic Other aftercare (1 source) Other [employer] (current) drug therapy; Translations: [OTH UNDERWEAR FINISHER CURRENT DRUG THERAPY] Onset: 12-29-2021 Episodic Other circulatory disease (1 source) Personal history of transient ischemic attack (TIA), and cerebral infarction without residual deficits; Translations: [PERS HX TIA AND CI NO RESID DEFICIT] Onset: 12-29-2021 Episodic Other circulatory disease (2 sources) Personal history of other diseases of the circulatory system; Translations: [Personal history of other diseases of the circulatory system] Onset: 11-22-2022 Episodic Other hematologic conditions (1 source) Other specified abnormalities of plasma proteins; Translations: [OTH SPEC ABNORM PLASMA PROTEINS] Onset: 12-29-2021 Episodic Other lower respiratory disease (4 sources) Other forms of dyspnea; Translations: [OTHER FORMS OF DYSPNEA] Onset: 03-21-2022 Episodic Other lower respiratory disease (3 sources) Shortness of breath; Translations: [SHORTNESS OF BREATH] Onset: 12-20-2021 Episodic Other screening for suspected conditions (not mental disorders or infectious disease) (4 sources) Other abnormal tumor markers; Translations: [Encounter for screening for malignant neoplasm of prostate] Onset: 09-22-2022 Episodic Residual codes; unclassified (1 source) Acquired absence of other specified parts of digestive tract; Translations: [ACQ ABSENCE OTH PART DIGESTV TRACT] Onset: 12-29-2021 Episodic Residual codes; unclassified (2 sources) Other specified postprocedural states; Translations: [Other specified postprocedural states] Onset: 11-22-2022 Episodic Results Test Name Value Interpretation Reference Range Facility 36 04-01-2025 36 05/13/25 11/05/24 HIV Quantitative RNA Date Value 11/05/2024 Comment: Not Detected 05/10/2022 DETECTED BUT <30 COPIES/ML CD4 Abs (cells/mm3) Date Value 11/05/2024 533 Creatinine (mg/dL) Date Value 11/05/2024 1.88 (H) Income on file: No [facility] Refillon 04-01-2025 Refill [id number] Parish Contreras 1955 [facility] Provider Department Center 04/01/2025 [facility] Len Heal Family History Problem Relation Age of Onset Heart attack Father Other Sister Heart attack Brother Other Brother Family Status - Relation Status Age at Father Sister Brother Reason for Visit and Comments: Med Refill [[id number]] [facility] Refill [id number] Parish Contreras 1955 Provider Department Center 04/01/2025 281[facility] C[facility] Len Heal Family History Problem Relation Age of Onset Heart attack Father Other Sister Heart attack Brother Other Brother Family Status - Relation Status Age at Father Sister Brother Reason for Visit and Comments: Med Refill [[id number]] [facility] Patient Outreachon Patient Outreach [id number] Parish Contreras 1955 Provider Department Center 03/18/202500216[facility] Len Heal Family History Problem Relation Age of Onset Heart attack Father Other Sister Heart attack Brother Other Brother Family Status - Relation Status Age at Father Sister Brother Reason for Visit and Comments: eligibility - due 04/2025 [Other] [facility] 02-10-2025 Refill [id number] Parish Contreras 1955 M Date Provider Department Center 02/10/2025 NEELIMASUSHILA [facility]ON [facility] IN[facility] Len Heal Family History Problem Relation Age of Onset Heart attack Father Other Sister Heart attack Brother Other Brother Family Status - Relation Status Age at Father Sister Brother Reason for Visit and Comments: Med Refill [[id number]] [facility] Ref[facility] 01-13-2025 Refill [id number] Parish Contreras 1955 M Date Provider Department Center 01/13/2025 281-ELENOSUSHILA DAMON A [facility] INF Len Heal Family History Problem Relation Age of Onset Heart attack Father Other Sister Heart attack Brother Other Brother Family Status - Relation Status Age at Father Sister Brother Reason for Visit and Comments: Med Refill [[id number]] [facility] 11-18-2024 Refill [id number] Parish Contreras 1955 M Date Provider Department Center 11/18/2024 281-ELENOSUSHILA DAMON C INF Len Heal Family History Problem Relation Age of Onset Heart attack Father Other Sister Heart attack Brother Other Brother Family Status - Relation Status Age at Father Sister Brother Reason for Visit and Comments: Med Refill [[id number]] [facility] 36on 11-08-2024 36 Regarding lab result s from 11/05/2024: MD Kassandra Vargas MA LDL cholesterol is very good. The triglyceride is high but that is due to uncontrolled diabetes mellitus. HbA1c is high 7.1%. Diabetes needs better control. Please forward the result to his PCP and let him follow with him in that regard. Continue Crestor and recheck fasting lipids and AST/ALT in 6 months. Potassium is good. Kidney function is stable. Continue current medications. Patient made aware. We will make sure he has repeat labs prior to next apt in Apr 2025. Lab results faxed to Dr. Murillo's office. Patient verbalized understanding. Normal [facility] CBC WITH AUTO DIFFERENTIALon 11-05-2024 Basophils (Bld) [#/Vol] 0.02 10*3/uL Normal 0.00-0.20 [facility] Comment on above: Performed By: #### L [id number] #### [facility] ([facility]) [address] [place] [address] Basophils/100 WBC (Bld) 0.4 % Normal 0.0-1.0 [facility] Comment on above: Performed By: #### L [id number] #### [facility] ([facility]) [address] [place] [address] Eosinophils (Bld) [#/Vol] 0.19 10*3/uL Normal 0.00-0.50 [facility] Comment on above: Performed By: #### L [id number] #### [facility] ([facility]) [address] [place] [address] Eosinophils/100 WBC (Bld) 3.5 % Normal 0.0-6.0 [facility] Comment on above: Performed By: #### L [id number] #### [facility] ([facility]) [address] [place] [address] Erythrocyte distribution width (RBC) [Ratio] 12.8 % Normal 11.5-15.0 [facility] Comment on above: Performed By: #### L [id number] #### [facility] ([facility]) [address] [place] [address] ERYTHROCYTE MEAN CORPUSCULAR HEMOGLOBIN CONCENTRATION (G/DL) BY AUTOMATED 33.1 g/dL Normal 32.0-35.0 [facility] Comment on above: Performed By: #### L [id number] #### [facility] ([facility]) [address] [place] [address] Hematocrit (Bld) [Volume fraction] 49.2 % Normal 39.0-55.0 [facility] Comment on above: Performed By: #### L [id number] #### [facility] ([facility]) [address] [place] [address] Hemoglobin (Bld) [Mass/Vol] 16.3 g/dL Normal 13.0-17.0 [facility] Comment on above: Performed By: #### L [id number] #### [facility] ([facility]) [address] [place] [address] Immature granulocytes (Bld) [#/Vol] 0.01 10*3/uL Normal 0.00-0.20 [facility] Comment on above: Performed By: #### L [id number] #### [facility] ([facility]) [address] [place] [address] Immature granulocytes/100 WBC (Bld) 0.2 % Normal 0.0-1.0 [facility] Comment on above: Performed By: #### L [id number] #### [facility] ([facility]) [address] [place] [address] IMMATURE PLATELET FRACTION % 1.6 % Normal 0.8-6.3 [facility] Comment on above: Performed By: #### L [id number] #### [facility] ([facility]) [address] [place] [address] Lymphocytes (Bld) [#/Vol] 1.81 10*3/uL Normal 1.20-4.00 [facility] Comment on above: Performed By: #### L [id number] #### [facility] ([facility]) [address] [place] [address] Lymphocytes/100 WBC (Bld) 33.1 % Normal 20.0-45.0 [facility] Comment on above: Performed By: #### L [id number] #### [facility] ([facility]) [address] [place] [address] MCH (RBC) [Entitic mass] 30.9 pg Normal 27.0-33.0 [facility] Comment on above: Performed By: #### L [id number] #### [facility] ([facility]) [address] [place] [address] MCV (RBC) [Entitic vol] 93.4 fL Normal 82.0-98.0 [facility] Comment on above: Performed By: #### L [id number] #### [facility] ([facility]) [address] [place] [address] Monocytes (Bld) [#/Vol] 0.41 10*3/uL Normal 0.10-1.00 [facility] Comment on above: Performed By: #### L [id number] #### [facility] ([facility]) [address] [place] [address] Monocytes/100 WBC (Bld) 7.5 % Normal 5.0-12.0 [facility] Comment on above: Performed By: #### L [id number] #### [facility] ([facility]) [address] [place] [address] Neutrophils (Bld) [#/Vol] 3.03 10*3/uL Normal 1.60-7.60 [facility] Comment on above: Performed By: #### L [id number] #### [facility] ([facility]) [address] [place] [address] Neutrophils/100 WBC (Bld) 55.3 % Normal 40.0-72.0 [facility] Comment on above: Performed By: #### L [id number] #### [facility] ([facility]) [address] [place] [address] NRBC (PER 100 WBCS) BY AUTOMATED COUNT 0.0 % Normal 0 [facility] Comment on above: Performed By: #### L [id number] #### [facility] ([facility]) [address] [place] [address] PLATELETS (10*3/UL) IN BLOOD AUTOMATED COUNT 141 10*3/uL Low 150-400 [facility] Comment on above: Performed By: #### L [id number] #### [facility] ([facility]) [address] [place] [address] RBC (Bld) [#/Vol] 5.27 10*6/uL Normal 4.20-5.70 [facility] Comment on above: Performed By: #### L [id number] #### [facility] ([facility]) [address] [place] [address] WBC (Bld) [#/Vol] 5.47 10*3/uL Normal 4.00-10.60 [facility] Comment on above: Performed By: #### L [id number] #### [facility] ([facility]) [address] [place] [address] CHLAMYDIA TRACHOMATIS AND NE ISSERIA GONORRHEA, TMAon 11-05-2024 CHLAMYDIA TRACHOMATIS DNA PROBE (PRESENCE) IN UNSP SPEC Negative Normal Negative [facility] Comment on above: Result Comment: No C hlamydia trachomatis rRNA Detected. The Aptima Combo 2 Assay is a FDA approved target amplification nucleic acid probe test that utilizes target capture for the in vitro qualitative detection and differentiation of ribosomal RNA (rRNA) from Chlamydia trachomatis (CT) and/or Neisseria gonorrhoeae (GC) to aid the diagnosis of chlamydial and/or gonococcal urogenital disease using the [place] System. The Aptima Combo 2 Assay involves target capture, target amplification by Dialysis Patient Care Technician-Mediated Amplification (TMA), and the detection of the amplification products (amplicon) by the Hybridization Protection Assay (HPA). The internal process controls of the [place] System monitor the target capture, amplification, and detection steps of the assay, this is not intended to control for sampling adequacy. Performed By: #### L [id number] ####[facility] ([facility])[address] [place] [address] NEISSERIA GONORRHOEAE DNA PROBE (PRESENCE) IN UNSP SPEC Negative Normal Negative [facility] Comment on above: Result Comment: No N eisseria gonorrhoeae rRNA Detected. The Aptima Combo 2 Assay is a FDA approved target amplification nucleic acid probe test that utilizes target capture for the in vitro qualitative detection and differentiation of ribosomal RNA (rRNA) from Chlamydia trachomatis (CT) and/or Neisseria gonorrhoeae (GC) to aid the diagnosis of chlamydial and/or gonococcal urogenital disease using the [place] System. The Aptima Combo 2 Assay involves target capture, target amplification by Dialysis Patient Care Technician-Mediated Amplification (TMA), and the detection of the amplification products (amplicon) by the Hybridization Protection Assay (HPA). The internal process controls of the [employer] System monitor the target capture, amplification, and detection steps of the assay, this is not intended to control for sampling adequacy. Performed By: #### L [id number] ####[facility] ([facility])[address] [place] [address] COMPREHENSIVE METABOLIC PANE Azam 11-05-2024 Albumin [Mass/Vol] 4.6 g/dL Normal 3.5-5.7 [facility] Comment on above: Performed By: #### L [id number] #### [facility] ([facility]) [address] [place] [address] ALP [Catalytic activity/Vol] 66 U/L Normal 34-104 [facility] Comment on above: Performed By: #### L [id number] #### [facility] ([facility]) [address] [place] [address] ALT [Catalytic activity/Vol] 14 U/L Normal 7-52 [facility] Comment on above: Performed By: #### L [id number] #### [facility] ([facility]) [address] [place] [address] Anion gap [Moles/Vol] 12 mmol/L Normal 7-20 [facility] Comment on above: Performed By: #### L [id number] #### [facility] ([facility]) [address] [place] [address] AST [Catalytic activity/Vol] 15 U/L Normal 13-39 [facility] Comment on above: Performed By: #### L [id number] #### [facility] ([facility]) [address] [place] [address] Bilirubin [Mass/Vol] 0.6 mg/dL Normal 0.3-1.0 [facility] Comment on above: Performed By: #### L [id number] #### [facility] ([facility]) [address] [place] [address] Calcium [Mass/Vol] 9.7 mg/dL Normal 8.6-10.3 [facility] Comment on above: Performed By: #### L [id number] #### [facility] ([facility]) [address] [place] [address] Chloride [Moles/Vol] 105 mmol/L Normal 98-107 [facility] Comment on above: Performed By: #### L [id number] #### [facility] ([facility]) [address] [place] [address] CO2 [Moles/Vol] 27 mmol/L Normal 21-31 [facility] Comment on above: Performed By: #### L [id number] #### [facility] ([facility]) [address] [facility] [place] [address] Creatinine [Mass/Vol] 1.88 mg/dL High 0.70-1.30 [facility] Comment on above: Performed By: #### L [id number] #### [facility] ([facility]) [address] [place] [address] GLOMERULAR FILTRATION RATE ML/MIN/1.73 SQ M.PREDICTED 37.7 mL/min/1.73m*2 Low >60.0 [facility] Comment on above: Result Comment: [facility]???s estimated glomerular filtration rate (eGFR) will [...] group of individuals. Performed By: #### L [id number] #### [facility] ([facility]) [address] [place] [address] Glucose [Mass/Vol] 112 mg/dL High 70-100 [facility] Comment on above: Performed By: #### L [id number] #### [facility] ([facility]) [address] [place] [address] Potassium [Moles/Vol] 4.5 mmol/L Normal 3.5-5.1 [facility] Comment on above: Performed By: #### L [id number] #### [facility] ([facility]) [address] [place] [address] Protein [Mass/Vol] 7.2 g/dL Normal 6.0-8.3 [facility] Comment on above: Performed By: #### L [id number] #### [facility] ([facility]) [address] [place] [address] Sodium [Moles/Vol] 139 mmol/L Normal 136-145 [facility] Comment on above: Performed By: #### L [id number] #### [facility] ([facility]) [address] [place] [address] Urea nitrogen [Mass/Vol] 27 mg/dL High 7-25 [facility] Comment on above: Performed By: #### L [id number] #### [facility] ([facility]) [address] [place] [address] UREA NITROGEN/CREATINI NE (MASS RATIO) IN SER/PLAS 14.4 Normal [facility] Comment on above: Performed By: #### L [id number] #### [facility] ([facility]) [address] [place] [address] HEMOGLOBIN A1Con 11-05-2024 Glucose [Mass/Vol] 157 mg/dL Normal [facility] Comment on above: Performed By: #### L [id number] #### [facility] ([facility]) [address] [place] [address] HbA1c (Bld) [Mass fraction] 7.1 % High 4.0-6.0 [facility] Comment on above: Performed By: #### L [id number] #### [facility] ([facility]) [address] [place] [address] LIPID PANELon 11-05-2024 CHOL/HDL 3.9 mg/dL Normal [facility] Comment on above: Performed By: #### L [id number] #### [facility] ([facility]) [address] [place] [address] Cholesterol [Mass/Vol] 140 mg/dL Normal 120-200 [facility] Comment on above: Performed By: #### L [id number] #### [facility] ([facility]) [address] [place] [address] Magnesium [Mass/Vol] 211 mg/dL High 40-149 [facility] Comment on above: Result Comment: TRIG LYCERIDE REFERENCE RANGE: 20 YEARS AND OLDER CARDIOVASCULAR RISK LESS THAN 150 mg/dL LOW RISK 150 TO 199 mg/dL BORDERLINE RISK 200 mg/dL AND GREATER HIGH RISK Performed By: #### L [id number] #### [facility] ([facility]) [address] [place] [address] Magnesium [Mass/Vol] 62 mg/dL Normal 0-160 [facility] Comment on above: Performed By: #### L [id number] #### [facility] ([facility] [address] [place] [address] Magnesium [Mass/Vol] 36 mg/dL Normal 23-92 [facility] Comment on above: Performed By: #### L [id number] #### [facility] ([facility] [address] [place] [address] NON HDL CHOL. (LDL+VLDL) 104 Normal [facility] Comment on above: Performed By: #### L [id number] #### [facility] ([facility] [address] [place] [address] TOTAL VLDL-C 42 mg/dL High 0-40 [facility] Comment on above: Performed By: #### L [id number] #### [facility] ([facility]) [address] [place] [address] Labon 11-05-2024 Lab [id number] Parish Contreras 1955 M Date Provider Department Center 11/05/2024 2245-[facility] LAB RESOURCE [facility] C Family History Problem Relation Age of Onset Heart attack Father Other Sister Heart attack Brother Other Brother Family Status - Relation Status Age at Father Sister Brother Normal [facility] Office Visiton 11-05-2024 Follow-up visit [id number] Parish Contreras Roebrt 1955 M Date Provider Department [place] 11/05/2024 [facility] Heal Family History Problem Relation Age of Onset Heart attack Father Other Sister Heart attack Brother Other Brother Family Status - Relation Status Age at Father Sister Brother Level of Service:82853 MT OFFICE/OUTPATIENT ESTABLISHED MOD MDM 30 MIN () Reason for Visit and Comments: HIV infection, unspecified symptom status (CMS/HCC) [Other] Health Maintenance [619] Med Management [[id number]] Normal [facility] RPRon 11-05-2024 REAGIN AB PRESENCE IN SERUM BY RPR Non-Reactive Normal Nonreactive [facility] Comment on above: Performed By: #### L [id number] #### [facility] [address] [place] [address] T CELL SUBSET ANALYSISon CD3 67.46 % Normal 65.00-90.00 [facility] Comment on above: Performed By: #### L [id number] #### [facility] [address] [place] [address] CD3 ABSOLUTE 1221 cells/mm3 Normal 760-2130 [facility] Comment on above: Performed By: #### L [id number] #### [facility] ([facility] [address] [place] [address] CD4 29.42 % Low 40.00-70.00 [facility] Comment on above: Performed By: #### L [id number] #### [facility] ([facility] [address] [place] [address] CD4 ABSOLUTE 533 cells/mm3 Normal 430-1185 [facility] Comment on above: Performed By: #### L [id number] #### [facility] ([facility] [address] [place] [address] CD4:CD8 0.80 Low 1.00-4.00 [facility] Comment on above: Performed By: #### L [id number] #### [facility] ([facility] [address] [place] [address] CD8 36.93 % Normal 15.00-40.00 [facility] Comment on above: Performed By: #### L [id number] #### [facility] ([facility]) [address] [place] [address] CD8 ABSOLUTE 669 cells/mm3 Normal 180-865 [facility] Comment on above: Performed By: #### L [id number] #### [facility] [address] [place] [address] Office Visiton 10-29-2024 Follow-up visit [id number] Parish Contreras 1955 M Date Provider Department Center 10/29/2024 [id number] SERRANO BO Cooper Family History Problem Relation Age of Onset Heart attack Father Other Sister Heart attack Brother Other Brother Family Status - Relation Status Age at Father Sister Brother Level of Service:00375 MT OFFICE/OUTPATIENT ESTABLISHED MOD MDM 30 MIN Reason for Visit and Comments: Atrial Fibrillation [80] - Denies bleeding on Eliquis. Coronary Artery Disease [187] Hyperlipidemia [182] Congestive Heart Failure [127] - Had echo and labs in Apr 2024. Shortness of Breath [477880] - He states this remains unchanged from last apt in March 2024. Palpitations [] - Feels palpitations/irregular beats sometimes at rest after some exertion. Normal [facility] Refillon 10-21-2024 Refill [id number] Parish Contreras 1955 M Date Provider Department Center 10/21/2024 [facility] Len Heal Family History Problem Relation Age of Onset Heart attack Father Other Sister Heart attack Brother Other Brother Family Status - Relation Status Age at Father Sister Brother Reason for Visit and Comments: Med Refill [[id number]] Normal [facility] 36on 10-18-[address] Chidi bang e and spoke with a nurse. Informed her that patient's daughter called us and reported that Dr. Murillo wanted to increase Lyrica to 100 mg BID. Patient wants to get script at [facility] and Dr. Tanner would need to write the prescription. Requested that they fax us Dr. Murillo's note indicating the increase in Lyrica. Since Lyrica is controlled, wanted to make sure they want us to prescribe so that patient not getting prescriptions from 2 physicians. She will fax the note after speaking with Dr. Murillo [facility] 36on 10-17-[address] Murillo on 09/11/2024 and Lyrica was increased to 100mg BID. Patient would like for you to send the Lyrica 100 mg BID to the [facility]. [facility] Orders Onlyon 10-17-2024 Orders Only [id number] Parish Contreras 1955 M [facility] Provider Department Center 10/17/2024 [facility] Len Heal Family History Problem Relation Age of Onset Heart attack Father Other Sister Heart attack Brother Other Brother Family Status - Relation Status Age at Father Sister Brother [facility] Refillon 09-23-2024 Refill [id number] Parish Contreras 1955 M Date Provider Department Center 09/23/2024 [facility] Heal Family History Problem Relation Age of Onset Heart attack Father Other Sister Heart attack Brother Other Brother Family Status - Relation Status Age at Father Sister Brother Reason for Visit and Comments: Med Refill [[id number]] [facility] Refillon 08-26-2024 Refill [id number] Parish Contreras 1955 M Date Provider Department Center 08/26/2024 [facility] Len Heal Family History Problem Relation Age of Onset Heart attack Father Other Sister Heart attack Brother Other Brother Family Status - Relation Status Age at Father Sister Brother Reason for Visit and Comments: Med Refill [[id number]] Normal [facility] Refillon 07-24-2024 Refill [id number] Parish Contreras Robert 1955 M Date Provider Department Center 07/24/2024 [facility] Heal Family History Problem Relation Age of Onset Heart attack Father Other Sister Heart attack Brother Other Brother Family Status - Relation Status Age at Father Sister Brother Reason for Visit and Comments: Med Refill [[id number]] Normal [facility] Refillon 06-26-2024 Refill [id number] Parish Contreras Robert 1955 M Date Provider Department Center 06/26/2024 [facility] Len Heal Family History Problem Relation Age of Onset Heart attack Father Other Sister Heart attack Brother Other Brother Family Status - Relation Status Age at Father Sister Brother Reason for Visit and Comments: Med Refill [[id number]] Normal [facility] Refillon 06-24-2024 Refill [id number] Parish Contreras Robert 1955 M Date Provider Department Center 06/24/2024 [facility] Heal Family History Problem Relation Age of Onset Heart attack Father Other Sister Heart attack Brother Other Brother Family Status - Relation Status Age at Father Sister Brother Reason for Visit and Comments: Med Refill [[id number]] Normal [facility] Refillon 06-03-2024 Refill [id number] Grover Contrerassheela Jones 1955 M Date Provider Department Center 06/03/2024 [facility] Len Heal Family History Problem Relation Age of Onset Heart attack Father Other Sister Heart attack Brother Other Brother Family Status - Relation Status Age at Father Sister Brother Reason for Visit and Comments: Med Refill [[id number]] Normal [facility] CBC WITH AUTO DIFFERENTIALon 05-07-2024 Basophils (Bld) [#/Vol] 0.02 10*3/uL Normal 0.00-0.20 [facility] Comment on above: Performed By: #### L [id number] #### [facility] ([facility]) [address] [place] [address] Basophils/100 WBC (Bld) 0.3 % Normal 0.0-1.0 [facility] Comment on above: Performed By: #### L [id number] #### [facility] ([facility]) [address] [place] [address] Eosinophils (Bld) [#/Vol] 0.14 10*3/uL Normal 0.00-0.50 [facility] Comment on above: Performed By: #### L [id number] #### [facility] ([facility]) [address] [place] [address] Eosinophils/100 WBC (Bld) 2.4 % Normal 0.0-6.0 [facility] Comment on above: Performed By: #### L [id number] #### [facility] ([facility]) [address] [place] [address] Erythrocyte distribution width (RBC) [Ratio] 13.7 % Normal 11.5-15.0 [facility] Comment on above: Performed By: #### L [id number] #### [facility] ([facility]) [address] [place] [address] ERYTHROCYTE MEAN CORPUSCULAR HEMOGLOBIN CONCENTRATION (G/DL) BY AUTOMATED 32.7 g/dL Normal 32.0-35.0 [facility] Comment on above: Performed By: #### L [id number] #### [facility] ([facility]) [address] [place] [address] Hematocrit (Bld) [Volume fraction] 50.7 % Normal 39.0-55.0 [facility] Comment on above: Performed By: #### L [id number] #### [facility] ([facility]) [address] [place] [address] Hemoglobin (Bld) [Mass/Vol] 16.6 g/dL Normal 13.0-17.0 [facility] Comment on above: Performed By: #### L [id number] #### [facility] ([facility]) [address] [place] [address] Immature granulocytes (Bld) [#/Vol] 0.02 10*3/uL Normal 0.00-0.20 [facility] Comment on above: Performed By: #### L [id number] #### [facility] ([facility]) [address] [place] [address] Immature granulocytes/100 WBC (Bld) 0.3 % Normal 0.0-1.0 [facility] Comment on above: Performed By: #### L [id number] #### [facility] ([facility]) [address] [place] [address] Lymphocytes (Bld) [#/Vol] 1.93 10*3/uL Normal 1.20-4.00 [facility] Comment on above: Performed By: #### L [id number] #### [facility] ([facility]) [address] [place] [address] Lymphocytes/100 WBC (Bld) 32.4 % Normal 20.0-45.0 [facility] Comment on above: Performed By: #### L [id number] #### [facility] ([facility]) [address] [place] [address] MCH (RBC) [Entitic mass] 30.6 pg Normal 27.0-33.0 [facility] Comment on above: Performed By: #### L [id number] #### [facility] ([facility]) [address] [place] [address] MCV (RBC) [Entitic vol] 93.5 fL Normal 82.0-98.0 [facility] Comment on above: Performed By: #### L [id number] #### [facility] ([facility]) [address] [place] [address] Monocytes (Bld) [#/Vol] 0.38 10*3/uL Normal 0.10-1.00 [facility] Comment on above: Performed By: #### L [id number] #### [facility] ([facility]) [address] [place] [address] Monocytes/100 WBC (Bld) 6.4 % Normal 5.0-12.0 [facility] Comment on above: Performed By: #### L [id number] #### [facility] ([facility]) [address] [place] [address] Neutrophils (Bld) [#/Vol] 3.46 10*3/uL Normal 1.60-7.60 [facility] Comment on above: Performed By: #### L [id number] #### [facility] ([facility]) [address] [place] [address] Neutrophils/100 WBC (Bld) 58.2 % Normal 40.0-72.0 [facility] Comment on above: Performed By: #### L [id number] #### [facility] ([facility]) [address] [place] [address] NRBC (PER 100 WBCS) BY AUTOMATED COUNT 0.0 % Normal 0 [facility] Comment on above: Performed By: #### L [id number] #### [facility] ([facility]) [address] [place] [address] PLATELETS (10*3/UL) IN BLOOD AUTOMATED COUNT 148 10*3/uL Low 150-400 [facility] Comment on above: Performed By: #### L [id number] #### [facility] ([facility]) [address] [place] [address] RBC (Bld) [#/Vol] 5.42 10*6/uL Normal 4.20-5.70 [facility] Comment on above: Performed By: #### L [id number] #### [facility] ([facility]) [address] [place] [address] WBC (Bld) [#/Vol] 5.95 10*3/uL Normal 4.00-10.60 [facility] Comment on above: Performed By: #### L [id number] #### [facility] ([facility]) [address] [place] [address] CHLAMYDIA TRACHOMATIS AND NE ISSERIA GONORRHEA, [facility] CHLAMYDIA TRACHOMATIS DNA PROBE (PRESENCE) IN UNSP SPEC Negative Normal Negative [facility] Comment on above: Result Comment: No C hlamydia trachomatis rRNA Detected. The Aptima Combo 2 Assay is a FDA approved target amplification nucleic acid probe test that utilizes target capture for the in vitro qualitative detection and differentiation of ribosomal RNA (rRNA) from Chlamydia trachomatis (CT) and/or Neisseria gonorrhoeae (GC) to aid the diagnosis of chlamydial and/or gonococcal urogenital disease using the [place] System. The Aptima Combo 2 Assay involves target capture, target amplification by Dialysis Patient Care Technician-Mediated Amplification (TMA), and the detection of the amplification products (amplicon) by the Hybridization Protection Assay (HPA). The internal process controls of the [place] System monitor the target capture, amplification, and detection steps of the assay, this is not intended to control for sampling adequacy. Performed By: #### L [id number] #### [facility] ([facility]) [address] [place] [address] NEISSERIA GONORRHOEAE DNA PROBE (PRESENCE) IN UNSP SPEC Negative Normal Negative [facility] Comment on above: Result Comment: No N eisseria gonorrhoeae rRNA Detected. The Aptima Combo 2 Assay is a FDA approved target amplification nucleic acid probe test that utilizes target capture for the in vitro qualitative detection and differentiation of ribosomal RNA (rRNA) from Chlamydia trachomatis (CT) and/or Neisseria gonorrhoeae (GC) to aid the diagnosis of chlamydial and/or gonococcal urogenital disease using the [place] System. The Aptima Combo 2 Assay involves target capture, target amplification by Dialysis Patient Care Technician-Mediated Amplification (TMA), and the detection of the amplification products (amplicon) by the Hybridization Protection Assay (HPA). The internal process controls of the [place] System monitor the target capture, amplification, and detection steps of the assay, this is not intended to control for sampling adequacy. Performed By: #### L [id number] #### [facility] ([facility]) [address] [place] [address] COMPREHENSIVE METABOLIC PANE Azam 05-07-2024 Albumin [Mass/Vol] 4.6 g/dL Normal 3.5-5.7 [facility] Comment on above: Performed By: #### L [id number] #### [facility] ([facility]) [address] [place] [address] ALP [Catalytic activity/Vol] 66 U/L Normal 34-104 [facility] Comment on above: Performed By: #### L [id number] #### [facility] ([facility]) [address] [place] [address] ALT [Catalytic activity/Vol] 14 U/L Normal 7-52 [facility] Comment on above: Performed By: #### L [id number] #### [facility] ([facility]) [address] [place] [address] Anion gap [Moles/Vol] 13 mmol/L Normal 7-20 [facility] Comment on above: Performed By: #### L [id number] #### [facility] ([facility]) [address] [place] [address] AST [Catalytic activity/Vol] 16 U/L Normal 13-39 [facility] Comment on above: Performed By: #### L [id number] #### [facility] ([facility]) [address] [place] [address] Bilirubin [Mass/Vol] 0.6 mg/dL Normal 0.3-1.0 [facility] Comment on above: Performed By: #### L [id number] #### [facility] ([facility]) [address] [place] [address] Calcium [Mass/Vol] 10.0 mg/dL Normal 8.6-10.3 [facility] Comment on above: Performed By: #### L [id number] #### [facility] ([facility]) [address] [place] [address] Chloride [Moles/Vol] 106 mmol/L Normal 98-107 [facility] Comment on above: Performed By: #### L [id number] #### [facility] ([facility]) [address] [place] [address] CO2 [Moles/Vol] 24 mmol/L Normal 21-31 [facility] Comment on above: Performed By: #### L [id number] #### [facility] ([facility]) [address] [place] [address] Creatinine [Mass/Vol] 1.70 mg/dL High 0.70-1.30 [facility] Comment on above: Performed By: #### L [id number] #### [facility] ([facility]) [address] [place] [address] GLOMERULAR FILTRATION RATE ML/MIN/1.73 SQ M.PREDICTED 42.6 mL/min/1.73m*2 Low >60.0 [facility] Comment on above: Result Comment: The [facility]???s estimated glomerular filtration rate (eGFR) will [...] individuals. Performed By: #### L [id number] #### [facility] ([facility]) [address] [place] [address] Glucose [Mass/Vol] 115 mg/dL High 70-100 [facility] Comment on above: Performed By: #### L [id number] #### [facility] ([facility]) [address] [place] [address] Potassium [Moles/Vol] 4.5 mmol/L Normal 3.5-5.1 [facility] Comment on above: Performed By: #### L [id number] #### [facility] ([facility]) [address] [place] [address] Protein [Mass/Vol] 7.6 g/dL Normal 6.0-8.3 [facility] Comment on above: Performed By: #### L [id number] #### [facility] ([facility]) [address] [place] [address] Sodium [Moles/Vol] 138 mmol/L Normal 136-145 [facility] Comment on above: Performed By: #### L [id number] #### [facility] ([facility]) [address] [place] [address] Urea nitrogen [Mass/Vol] 26 mg/dL High 7-25 [facility] Comment on above: Performed By: #### L [id number] #### [facility] ([facility]) [address] [place] [address] UREA NITROGEN/CREATINI NE (MASS RATIO) IN SER/PLAS 15.3 Normal [facility] Comment on above: Performed By: #### L [id number] #### [facility] ([facility]) [address] [place] [address] HEMOGLOBIN A1Con 05-07-2024 Glucose [Mass/Vol] 151 mg/dL Normal [facility] Comment on above: Performed By: #### L [id number] ####[facility] ([facility])[address] [place] [address] HbA1c (Bld) [Mass fraction] 6.9 % High 4.0-6.0 [facility] Comment on above: Performed By: #### L [id number] ####[facility] ([facility])[address] [place] [address] LIPID PANELon 05-07-2024 CHOL/HDL 3.4 mg/dL Normal [facility] Comment on above: Performed By: #### L [id number] ####[facility] ([facility])[address] [place] [address] Cholesterol [Mass/Vol] 151 mg/dL Normal 120-200 [facility] Comment on above: Performed By: #### L [id number] ####[facility] ([facility])[address] [place] [address] Magnesium [Mass/Vol] 210 mg/dL High 40-149 [facility] Comment on above: Result Comment: TRIG LYCERIDE REFERENCE RANGE: 20 YEARS AND OLDER CARDIOVASCULAR RISK LESS THAN 150 mg/dL LOW RISK 150 TO 199 mg/dL BORDERLINE RISK 200 mg/dL AND GREATER HIGH RISK Performed By: #### L [id number] ####[facility] ([facility])[address] [place] [address] Magnesium [Mass/Vol] 65 mg/dL Normal 0-160 [facility] Comment on above: Performed By: #### L [id number] ####[facility] ([facility])[address] [place] [address] Magnesium [Mass/Vol] 44 mg/dL Normal 23-92 [facility] Comment on above: Performed By: #### L [id number] ####[facility] ([facility])[address] [place] [address] NON HDL CHOL. (LDL+VLDL) 107 Normal [facility] Comment on above: Performed By: #### L [id number] ####[facility] ([facility])[address] [place] [address] TOTAL VLDL-C 42 mg/dL High 0-40 [facility] Comment on above: Performed By: #### L [id number] ####[facility] ([facility])[address] [place] [address] Labon 05-07-2024 Lab [id number] Parish Contreras 1955 M Date Provider Department Center 05/07/2024 2245-[facility] LAB RESOURCE [facility] Family History Problem Relation Age of Onset Heart attack Father Other Sister Heart attack Brother Other Brother Family Status - Relation Status Age at Father Sister Brother Normal [facility] Office Visiton 05-07-2024 Follow-up visit [id number] Parish Contreras 1955 M Date Provider Department Center 05/07/2024 [facility] History Problem Relation Age of Onset Heart attack Father Other Sister Heart attack Brother Other Brother Family Status - Relation Status Age at Father Sister Brother Level of Service:37740 MT OFFICE/OUTPATIENT ESTABLISHED MOD MDM 30 MIN (GC) Reason for Visit and Comments: HIV infection, unspecified symptom status (CMS/HCC) [Other] Health Maintenance [619] Med Management [[id number]] Normal [facility] T CELL SUBSET ANALYSISon CD3 67.99 % Normal 65.00-90.00 [facility] Comment on above: Performed By: #### L [id number] #### [facility] ([facility]) [address] [place] [address] CD3 ABSOLUTE 1311 cells/mm3 Normal 760-2130 [facility] Comment on above: Performed By: #### L [id number] #### [facility] ([facility]) [address] [facility] [place] [address] CD4 30.65 % Low 40.00-70.00 [facility] Comment on above: Performed By: #### L [id number] #### [facility] ([facility]) [address] [facility] [place] [address] CD4 ABSOLUTE 591 cells/mm3 Normal 430-1185 [facility] Comment on above: Performed By: #### L [id number] #### [facility] ([facility]) [address] [facility] [place] [address] CD4:CD8 0.85 Low 1.00-4.00 [facility] Comment on above: Performed By: #### L [id number] #### [facility] ([facility]) [address] [facility] [place] [address] CD8 35.91 % Normal 15.00-40.00 [facility] Comment on above: Performed By: #### L [id number] #### [facility] ([facility]) [address] [facility] [address] CD8 ABSOLUTE 692 cells/mm3 Normal 180-865 [facility] Comment on above: Performed By: #### L [id number] #### [facility] ([facility]) [address] [place] [address] [place] 05-06-2024 Refill [id number] Parish Contreras 1955 Date Provider Department [place] 05/06/2024 [facility] Len Heal Family History Problem Relation Age of Onset Heart attack Father Other Sister Heart attack Brother Other Brother Family Status - Relation Status Age at Father Sister Brother Reason for Visit and Comments: Med Refill [[id number]] [facility] Office Visiton 04-17-2024 Follow-up visit [id number] Parish Contreras 1955 M Date Provider Department Center 04/17/2024 Nadia-ALLYSON BOYD BO [place] Family History Problem Relation Age of Onset Heart attack Father Other Sister Heart attack Brother Other Brother Family Status - Relation Status Age at Father Sister Brother Level of Service:89474 MT OFFICE/OUTPATIENT ESTABLISHED LOW MDM 20 MIN [facility] Ambulatory Visit Summaryon 0 02-08-2023 Ambulatory Visit Summary FLORGROEVRSheela Jones :1955 Visit Date:02/08/2023 Ambulatory Visit Instructions Your Diagnosis Personal history of colonic polyps Your Care Team Attending Physician - ROSITA LANDEROS, Jose He Primary Care Physician - Jonas [...] A-fib Personal history of colonic polyps Normal [facility] Consultation Noteon 02-08-20 Consultation Note [id number]:127 Normal [facility] Physician Referralon 023 Physician Referral [id number]#[id number]:127 Normal [facility] CA 19-9on 09-15-2022 CA 19-9 18 U/mL Normal 0-35 [facility] Comment on above: Result Comment: [employer] Electrochemiluminescence Immunoassay (ECLIA) . Values obtained with different assay methods or kits cannot be used interchangeably. Results cannot be interpreted as absolute evidence of the presence or absence of malignant disease. Performed By: #### C A 19,9 ####[facility] [address] [place], [place] [address]HgDr. Jose Gonsales CEAon 09-15-2022 CEA 0.8 ng/mL Normal 0.0-4.7 [facility] Comment on above: Result Comment: Nons mokers <3.9 Smokers <5.6 . [employer] Electrochemiluminescence Immunoassay (ECLIA) . Values obtained with different assay methods or kits cannot be used interchangeably. Results cannot be interpreted as absolute evidence of the presence or absence of malignant disease. Performed By: #### H PYLLC #### [facility] [address] [place], [place] [address] Dr. Jose Gonsales H PYLORI ANTIBODY IGGon 08-26 H. PYLORI IGG ABS 0.23 Index Value Normal 0.00-0.79 [facility] Comment on above: Result Comment: Nega tive <0.80 Equivocal 0.80 - 0.89 Positive >0.89 Performed By: #### H PYLLC #### [facility] [address] [place] [address] [address] Jose Gonsales AMMONIAon 09-14-2022 Ammonia (P) [Moles/Vol] 13 umol/L Normal 11-32 [facility] Comment on above: Performed By: #### P TTHEP #### [facility] [address] [place] [address] [address] Jose Gonsales AMYLASEon 09-14-2022 Amylase [Catalytic activity/Vol] 47 U/L Normal 25-115 [facility] Comment on above: Performed By: #### P TTHEP #### [facility] [address] [place] [address] [address] Jose Gonsales CBC AUTO DIFFon 09-14-2022 BASO # 0.0 103/ul Normal 0.0-0.1 [facility] Comment on above: Performed By: #### C BC ####[facility] [address] [place] [address]DrLuci Gonsales Basophils/100 WBC (Bld) 0.2 % Normal 0.2-2.0 [facility] Comment on above: Performed By: #### C BC ####[facility] [address] [place] [address]DrLuci Gonsales EO # 0.2 103/ul Normal 0.0-0.7 [facility] Comment on above: Performed By: #### C BC ####[facility] [address] [place] [address]DrLuci Gonsales Eosinophils/100 WBC (Bld) 3.4 % Normal 0.9-7.0 [facility] Comment on above: Performed By: #### C BC ####[facility] [address] [place] [address]DrLuci Gonsales Erythrocyte distribution width (RBC) [Ratio] 13.7 % Normal 11.0-15.0 [facility] Comment on above: Performed By: #### C BC ####[facility] [address] [place] [address]DrLuci Gonsales Hematocrit (Bld) [Volume fraction] 44.0 % Normal 42.0-54.0 [facility] Comment on above: Performed By: #### C BC ####[facility] [address] [place] [address]Dr. Jose Gonsales Hemoglobin (Bld) [Mass/Vol] 14.4 g/dL Normal 14.0-18.0 [facility] Comment on above: Performed By: #### C BC ####[facility] [address] [place] [address]Dr. Jose Gonsales IG # 0.01 10e3/ul Normal 0.00-0.03 [facility] Comment on above: Performed By: #### C BC ####[facility] [address] [place] [address]Dr. Jose Gonsales IG % 0.2 % Normal 0.0-0.5 [facility] Comment on above: Performed By: #### C BC ####[facility] [address] [place], [place] [address]Dr. Jose Gonsales LYMPH # 1.4 103/ul Normal 1.2-3.8 [facility] Comment on above: Performed By: #### C BC ####[facility] [address] [place], [place] [address]Dr. Jose Gonsales Lymphocytes/100 WBC (Bld) 31.6 % Normal 20.5-60.0 [facility] Comment on above: Performed By: #### C BC ####[facility] [address] [place] [address]Dr. Jose Gonsales MANUAL DIFF REQ NO Normal [facility] Comment on above: Performed By: #### C BC ####[facility] [address] [place] [address]Dr. Jose Gonsales MCH (RBC) [Entitic mass] 29.8 pg Normal 25.9-34.0 [facility] Comment on above: Performed By: #### C BC ####[facility] [address] [place] [address]Dr. Jose Gonsales MCHC (RBC) [Mass/Vol] 32.7 g/dL Normal 29.9-35.2 [facility] Comment on above: Performed By: #### C BC ####[facility] [address] [place] [id number]. Jose Gonsales MCV (RBC) [Entitic vol] 91.1 fL Normal 80.0-94.0 [facility] Comment on above: Performed By: #### C BC ####[facility] [address] [place] [address]Dr. Jose Gonsales MONO # 0.4 103/ul Normal 0.3-0.8 [facility] Comment on above: Performed By: #### C BC ####[facility] [address] [place] [address]Dr. Dorindaedward Gonsales Monocytes/100 WBC (Bld) 8.4 % Normal 1.7-12.0 [facility] Comment on above: Performed By: #### C BC ####[facility] [address] [place], [place] [address]Dr. Jose Gonsales NEUT # 2.5 103/ul Normal 1.4-6.5 [facility] Comment on above: Performed By: #### C BC ####[facility] [address] [place], [place] [address]Dr. Jose Dru Neutrophils/100 WBC (Bld) 56.2 % Normal 43.0-75.0 [facility] Comment on above: Performed By: #### C BC ####[facility] [address] [place], [place] [address]Dr. Jose Dru Platelet mean volume (Bld) [Entitic vol] 10.4 fL Normal 9.5-13.5 [facility] Comment on above: Performed By: #### C BC ####[facility] [address] [place] [id number]. Jose Gonsales PLT 122 103/ul Critically low 150-450 [facility] Comment on above: Performed By: #### C BC ####[facility] [address] [place] [address]Dr. Jose Gonsales RBC 4.83 106/ul Normal 4.70-6.10 [facility] Comment on above: Performed By: #### C BC ####[facility] [address] [place] [address]Dr. Jose Gonsales WBC 4.4 103/ul Normal 4.0-11.0 [facility] Comment on above: Performed By: #### C BC ####[facility] [address] [place] [address]Dr. Jose Gonsales FREE THYROXINE INDEX T7on FTI 1.86 Normal 1.30-4.50 [facility] Comment on above: Performed By: #### C MP, T7, LIPA, TSH, YFN ####[facility] [address] [place] [address]Dr. Jose Gonsales T3U 35.0 % Normal 33.0-40.0 [facility] Comment on above: Performed By: #### C MP, T7, LIPA, TSH, YFN ####[facility] [address] [place] [address]Dr. Jose Gonsales T4 [Mass/Vol] 5.30 ug/dL Normal 4.50-12.10 [facility] Comment on above: Performed By: #### C MP, T7, LIPA, TSH, YFN ####[facility] [address] [place] [address]Dr. Jose Gonsales IRONon 09-14-2022 Iron [Mass/Vol] 47.0 ug/dL Critically low 65.0-175.0 [facility] Comment on above: Performed By: #### P TTHEP #### [facility] [address] [place] [address] [address] Jose Gonsales LIPASEon 09-14-2022 Lipase [Catalytic activity/Vol] 182.0 U/L Normal 73.0-393.0 [facility] Comment on above: Performed By: #### P TTHEP #### [facility] [address] [place] [address] [address] Jose Gonsales PROF 14(COMP METB)on 022 Albumin [Mass/Vol] 3.5 g/dL Normal 3.4-5.0 [facility] Comment on above: Performed By: #### C MP, T7, LIPA, TSH, YFN ####[facility] [address] [place] [address]Dr. Jose Gonsales Albumin/Globulin [Mass ratio] 0.9 {ratio} Normal [facility] Comment on above: Performed By: #### C MP, T7, LIPA, TSH, YFN ####[facility] [address] [place], [place] [address]Dr. Jose Gonsales ALP [Catalytic activity/Vol] 64 U/L Normal 46-116 [facility] Comment on above: Performed By: #### C MP, T7, LIPA, TSH, YFN ####[facility] [address] [place], [place] [address]Dr. Jose Gonsales ALT [Catalytic activity/Vol] 16 U/L Normal 16-63 [facility] Comment on above: Performed By: #### C MP, T7, LIPA, TSH, YFN ####[facility] [address] [place], [place] [address]Dr. Jose Gonsales Anion gap [Moles/Vol] 9.6 mmol/L Normal [facility] Comment on above: Performed By: #### C MP, T7, LIPA, TSH, YFN ####[facility] [address] [place], [place] [address]Dr. Jose Gonsales AST [Catalytic activity/Vol] 16 U/L Normal 15-37 [facility] Comment on above: Performed By: #### C MP, T7, LIPA, TSH, YFN ####[facility] [address] [place], [place] [address]Dr. Jose Gonsales Bilirubin [Mass/Vol] 0.3 mg/dL Normal 0.2-1.0 [facility] Comment on above: Performed By: #### C MP, T7, LIPA, TSH, YFN ####[facility] [address] [place], [place] [address]Dr. Jose Gonsales Calcium [Mass/Vol] 9.3 mg/dL Normal 8.5-10.1 [facility] Comment on above: Performed By: #### C MP, T7, LIPA, TSH, YFN ####[facility] [address] [place] [address]Dr. Jose Gonsales Chloride [Moles/Vol] 104 mmol/L Normal 98-107 [facility] Comment on above: Performed By: #### C MP, T7, LIPA, TSH, YFN ####[facility] [address] [place] [address]Dr. Jose Gonsales CO2 [Moles/Vol] 28.9 mmol/L Normal 21.0-32.0 [facility] Comment on above: Performed By: #### C MP, T7, LIPA, TSH, YFN ####[facility] [address] [place], [place] [address]Dr. Jose Gonsales Creatinine [Mass/Vol] 1.96 mg/dL Critically high 0.70-1.30 [facility] Comment on above: Performed By: #### C MP, T7, LIPA, TSH, YFN ####[facility] [address] [place], [place] [address]Dr. Jose Gonsales EGFR-AF SAMOAN 41 mL/min/1.73m2 Critically low >=60 [facility] Comment on above: Performed By: #### C MP, T7, LIPA, TSH, YFN ####[facility] [address] [place], [place] [address]Dr. Jose Gonsales EGFR-NON AF SAMOAN 34 mL/min/1.73m2 Critically low >=60 [facility] Comment on above: Performed By: #### C MP, T7, LIPA, TSH, YFN ####[facility] [address] [place], [place] [address]Dr. Jose Gonsales Globulin (S) [Mass/Vol] 3.7 g/dL Normal [facility] Comment on above: Performed By: #### C MP, T7, LIPA, TSH, YFN ####[facility] [address] [place] [address]Dr. Jose Gonsales Glucose [Mass/Vol] 161 mg/dL Critically high 74-106 [facility] Comment on above: Performed By: #### C MP, T7, LIPA, TSH, YFN ####[facility] [address] [place] [address]Dr. Jose Gonsales Potassium [Moles/Vol] 4.5 mmol/L Normal 3.5-5.1 [facility] Comment on above: Performed By: #### C MP, T7, LIPA, TSH, YFN ####[facility] [address] [place] [address]Dr. Jose Gonsales Protein [Mass/Vol] 7.2 g/dL Normal 6.4-8.2 [facility] Comment on above: Performed By: #### C MP, T7, LIPA, TSH, YFN ####[facility] [address] [place], [place] [address]Dr. Jose Gonsales Sodium [Moles/Vol] 138 mmol/L Normal 136-145 [facility] Comment on above: Performed By: #### C MP, T7, LIPA, TSH, YFN ####[facility] [address] [place], [place] [address]Dr. Jose Gonsales Urea nitrogen [Mass/Vol] 33.0 mg/dL Critically high 7.0-18.0 [facility] Comment on above: Performed By: #### C MP, T7, LIPA, TSH, YFN ####[facility] [address] [place] [address]Dr. Jose Gonsales Urea nitrogen/Creatini ne [Mass ratio] 16.8 mg/mg Normal [facility] Comment on above: Performed By: #### C MP, T7, LIPA, TSH, YFN ####[facility] [address] [place], [place] [address]Dr. Jose Gonsales TSHon 09-14-2022 TSH 1.868 uIU/mL Normal 0.358-3.740 [facility] Comment on above: Performed By: #### C MP, T7, LIPA, TSH, YFN ####[facility] [address] [place] [address]Dr. Jose Gonsales DIGOXINon 05-16-2022 DIG 0.6 ng/mL Critically low 0.9-2.0 [facility] Comment on above: Performed By: #### D IG #### [facility] [address] [place], [place] [address] Dr. Jose Gonsales Cardiovascular Lab Reporton 04-06-2022 Cardiovascular Lab Report [facility] Patient Name: Parish Contreras [facility] MR #: [id number] Physician: Eleno Ruvalcaba of [facility] Service Date: 04/05/2022 Division of Birthdate: 1955 Cardiology Room #: CC Adult Cardiovascular Services [facility] [address] [facility]. [place] [address] Cardiovascular Laboratory Report INDICATION: The patient is [...] signed the consent. He was brought to laboratory tech in a fasting state. The right groin area was prepped and draped in usual fashion. Micropuncture technique and ultrasound guidance were used for access in the right common femoral artery. Inner cannula angiography was performed, followed by upsizing to the 5-Ghanaian x 11 cm sheath. Access was obtained using same technique in the right common femoral vein and a 6-Ghanaian x 11 cm sheath was placed. A 6-Ghanaian Miller catheter was used to right heart catheterization with measurement pressures of and calculation of cardiac output using the estimated [place] method Miller catheter was removed. Bilateral selective coronary angiography was then performed using 5-Ghanaian JL4 and JR4 diagnostic catheters. The JR4 diagnostic catheter was used to selectively engage the radial graft to the obtuse marginal branch #1, angiography was performed. The catheter was used to selectively engage the saphenous venous graft to the diagonal branch, angiography was performed. The catheter was exchanged to a 5-Ghanaian AR modified diagnostic catheter, which was used to selectively engage the saphenous venous graft to the PDA, angiography was performed. A 5-Ghanaian FABIANA catheter was used to selectively engage the left subclavian artery and then selectively engage the left internal mammary artery, angiography was performed. Catheter was removed. Procedure was concluded. A 6-Ghanaian Angio-Seal device was used for hemostasis in [...] 1. (more content not included)... Normal [facility] CBC AUTO DIFFon 04-01-2022 BASO # 0.0 103/ul Normal 0.0-0.1 [facility] Comment on above: Performed By: #### H PYLLC #### [facility] [address] [place] [address] [address] Jose Gonsales Basophils/100 WBC (Bld) 0.2 % Normal 0.2-2.0 [facility] Comment on above: Performed By: #### H PYLLC #### [facility] [address] [place] [address] [address] Jose Gonsales EO # 0.1 103/ul Normal 0.0-0.7 [facility] Comment on above: Performed By: #### H PYLLC #### [facility] [address] [place] [address] [address] Jose Gonsales Eosinophils/100 WBC (Bld) 2.2 % Normal 0.9-7.0 [facility] Comment on above: Performed By: #### H PYLLC #### [facility] [address] [place] [address] [address] Jose Gonsales Erythrocyte distribution width (RBC) [Ratio] 12.8 % Normal 11.0-15.0 [facility] Comment on above: Performed By: #### H PYLLC #### [facility] [address] [place] [address] [address] Jose Gonsales Hematocrit (Bld) [Volume fraction] 44.5 % Normal 42.0-54.0 [facility] Comment on above: Performed By: #### H PYLLC #### [facility] [address] [place] [address] [address] Jose Gonsales Hemoglobin (Bld) [Mass/Vol] 14.5 g/dL Normal 14.0-18.0 [facility] Comment on above: Performed By: #### H PYLLC #### [facility] [address] [place] [address] [address] Jose Gonsales IG # 0.01 10e3/ul Normal 0.00-0.03 [facility] Comment on above: Performed By: #### H PYLLC #### [facility] [address] [place] [address] [address] Jose Gonsales IG % 0.2 % Normal 0.0-0.5 [facility] Comment on above: Performed By: #### H PYLLC #### [facility] [address] [place] [address] [address] Jose Gonsales LYMPH # 1.8 103/ul Normal 1.2-3.8 [facility] Comment on above: Performed By: #### H PYLLC #### [facility] [address] [place] [address] Dr. Jose Gonsales Lymphocytes/100 WBC (Bld) 31.8 % Normal 20.5-60.0 [facility] Comment on above: Performed By: #### H PYLLC #### [facility] [address] [place] [address] Dr. Jose Gonsales MANUAL DIFF REQ NO Normal [facility] Comment on above: Performed By: #### H PYLLC #### [facility] [address] [place] [address] Dr. Jose Gonsales MCH (RBC) [Entitic mass] 30.6 pg Normal 25.9-34.0 [facility] Comment on above: Performed By: #### H PYLLC #### [facility] [address] [place] [address] Dr. Jose Gonsales MCHC (RBC) [Mass/Vol] 32.6 g/dL Normal 29.9-35.2 [facility] Comment on above: Performed By: #### H PYLLC #### [facility] [address] [place] [address] Dr. Jose Gonsales MCV (RBC) [Entitic vol] 93.9 fL Normal 80.0-94.0 [facility] Comment on above: Performed By: #### H PYLLC #### [facility] [address] [place] [address] [address] Jose Gonsales MONO # 0.5 103/ul Normal 0.3-0.8 [facility] Comment on above: Performed By: #### H PYLLC #### [facility] [address] [place] [address] [address] Jose Gonsales Monocytes/100 WBC (Bld) 8.5 % Normal 1.7-12.0 [facility] Comment on above: Performed By: #### H PYLLC #### [facility] [address] [place] [address] [address] Jose Gonsales NEUT # 3.3 103/ul Normal 1.4-6.5 [facility] Comment on above: Performed By: #### H PYLLC #### [facility] [address] [place] [address] Dr. Jose Gonsales Neutrophils/100 WBC (Bld) 57.1 % Normal 43.0-75.0 [facility] Comment on above: Performed By: #### H PYLLC #### [facility] [address] [place] [address] Dr. Jose Gonsales Platelet mean volume (Bld) [Entitic vol] 10.1 fL Normal 9.5-13.5 [facility] Comment on above: Performed By: #### H PYLLC #### [facility] [address] [place] [address] Dr. Jose Gonsales PLT 150 103/ul Normal 150-450 [facility] Comment on above: Performed By: #### H PYLLC #### [facility] [address] [place] [address] Dr. Jose Gonsales RBC 4.74 106/ul Normal 4.70-6.10 [facility] Comment on above: Performed By: #### H PYLLC #### [facility] [address] [place] [address] Dr. Jose Gonsales WBC 5.8 103/ul Normal 4.0-11.0 [facility] Comment on above: Performed By: #### H PYLLC #### [facility] [address] [place], [place] [id number] Dr. Jose Gonsales Covid-19 PCR (CVDTB)on SARS-CoV-2 (COVID-19) RNA JORDON+probe Ql (Unsp spec) Not detected Normal NOT DETECTED [facility] Comment on above: Result Comment: This test is not yet approved or cleared by the [place] FDA. When there are no FDA-approved or cleared tests available, and other criteria are met, FDA can make tests available under an emergency access mechanism called an Emergency Use Authorization (EUA). The EUA for this test is supported by the [place] of Health and Human Service's (HHS's) declaration [...] with SARS-CoV-2. Performed By: #### C VDTBH ####[facility] [address] [place] [address]Dr. Jose Gonsales PROF CHEM 8 (BAS METB)on Anion gap [Moles/Vol] 14.0 mmol/L Normal [facility] Comment on above: Performed By: #### P TTHEP #### [facility] Laboratory [address] [place] [address] Dr. Jose Gonsales Calcium [Mass/Vol] 9.3 mg/dL Normal 8.5-10.1 [facility] Comment on above: Performed By: #### P TTHEP #### [facility] [address] [place] [address] Dr. Jose Gonsales Chloride [Moles/Vol] 106 mmol/L Normal 98-107 [facility] Comment on above: Performed By: #### P TTHEP #### [facility] [address] [place] [address] Dr. Jose Gonsales CO2 [Moles/Vol] 22.7 mmol/L Normal 21.0-32.0 [facility] Comment on above: Performed By: #### P TTHEP #### [facility] [address] [address] [address] Jose Gonsales Creatinine [Mass/Vol] 2.22 mg/dL Critically high 0.70-1.30 [facility] Comment on above: Performed By: #### P TTHEP #### [facility] [address] [address] [address] Jose Gonsales EGFR-AF SAMOAN 36 mL/min/1.73m2 Critically low >=60 [facility] Comment on above: Performed By: #### P TTHEP #### [facility] [address] [place] [address] Dr. Jose Gonsales EGFR-NON AF SAMOAN 30 mL/min/1.73m2 Critically low >=60 [facility] Comment on above: Performed By: #### P TTHEP #### [facility] [address] [address] [address] Jose Gonsales Glucose [Mass/Vol] 121 mg/dL Critically high 74-106 [facility] Comment on above: Performed By: #### P TTHEP #### [facility] [address] [place] [address] Dr. Jose Gonsales Potassium [Moles/Vol] 4.7 mmol/L Normal 3.5-5.1 [facility] Comment on above: Performed By: #### P TTHEP #### [facility] [address] [address] [address] Jose Gonsales Sodium [Moles/Vol] 138 mmol/L Normal 136-145 [facility] Comment on above: Performed By: #### P TTHEP #### [facility] [address] [address] [address] Jose Gonsales Urea nitrogen [Mass/Vol] 38.0 mg/dL Critically high 7.0-18.0 [facility] Comment on above: Performed By: #### P TTHEP #### [facility] [address] [address] [address] Jose Gonsales Urea nitrogen/Creatini ne [Mass ratio] 17.1 mg/mg Normal [facility] Comment on above: Performed By: #### P TTHEP #### [facility] [address] [address] [address] Jose Gonsales NM STRESS/REST MULTIon 03-21 NM STRESS/REST MULTI Patient: PARISH CONTRERAS Exam Date: 03/21/2022 : 1955 Gender:M Ordering : DR ELENO JOHNSON M.D. Admission #: [id number] Family : DR JONAS MURILLO . Order #: [id number] CLICK HERE TO VIEW EXAM RADIOLOGY REPORT [...] Good. PERFUSION DEFECT: LOCATION: Mid-anterior. Apical anterior. [place]. SIZE: Medium (3-4 segments). SEVERITY: Severe. TYPE: Mixed. WALL MOTION: Severe hypokinesis: Mid-anterior. Apical anterior. [place]. LV SIZE: Enlarged; EDV 157 mL. TID [...] MD on 03/22/2022 at 07:09 Normal [facility] DIGOXINon 01-03-2022 DIG 1.1 ng/mL Normal 0.8-2.0 [facility] Comment on above: Performed By: #### P TTHEP #### [facility] [address] [place] [address] Dr. Jose Gonsales DIGOXINon 12-24-2021 DIG 1.1 ng/mL Normal 0.8-2.0 [facility] Comment on above: Performed By: #### P TTHEP #### [facility] [address] [place] [address] Dr. Jose Gonsales BNPon 12-22-2021 Natriuretic peptide B (Bld) [Mass/Vol] 353.0 pg/mL Normal <=900.0 [facility] Comment on above: Performed By: #### P T #### [facility] [address] [place] [address] Dr. Jose Gonsales CARDIAC [place] ADMITon 022 CK [Catalytic activity/Vol] 122 U/L Normal 55-170 [facility] Comment on above: Performed By: #### P T #### [facility] [address] [place] [address] Dr. Jose Gonsales CK.MB [Mass/Vol] 0.94 ng/mL Normal <=2.37 [facility] Comment on above: Performed By: #### P T #### [facility] [address] [place] [address] Dr. Jose Gonsales HSTROP 208.6 pg/mL Critically high 4.0-42.2 [facility] Comment on above: Result Comment: CUT- OFF POINTS HAVE BEEN ESTABLISHED BASED ON THE FOURTH UNIVERSAL DEFINITIONS OF MYOCARDIAL INFARCTION. THE UPPER REFERENCE LIMIT (URL) OF TROPONIN, DEFINED THE 99TH PERCENTILE OF cTnI DISTRIBUTION IN A REFERENCE POPULATION, HAS BEEN CONFIRMED THE DECISION THRESHOLD FOR CT DIAGNOSIS. Performed By: #### P T #### [facility] [address] [place] [address] Dr. Jose Gonsales BLANCA 96.0 ng/mL Normal <=121.0 [facility] Comment on above: Performed By: #### P T #### [facility] [address] [address] [address] Jose Gonsales CBC AUTO DIFFon 12-22-2021 BASO # 0.0 103/ul Normal 0.0-0.1 [facility] Comment on above: Performed By: #### H PYLLC #### [facility] [address] [address] [address] Jose Gonsales Basophils/100 WBC (Bld) 0.3 % Normal 0.2-2.0 [facility] Comment on above: Performed By: #### H PYLLC #### [facility] [address] [place] [address] Dr. Jose Gonsales EO # 0.1 103/ul Normal 0.0-0.7 [facility] Comment on above: Performed By: #### H PYLLC #### [facility] [address] [place] [address] Dr. Jose Gonsales Eosinophils/100 WBC (Bld) 1.9 % Normal 0.9-7.0 [facility] Comment on above: Performed By: #### H PYLLC #### [facility] [address] [place] [address] Dr. Jose Gonsales Erythrocyte distribution width (RBC) [Ratio] 12.9 % Normal 11.0-15.0 [facility] Comment on above: Performed By: #### H PYLLC #### [facility] [address] [place] [address] Dr. Jose Gonsales Hematocrit (Bld) [Volume fraction] 45.6 % Normal 42.0-54.0 [facility] Comment on above: Performed By: #### H PYLLC #### [facility] [address] [place] [address] Dr. Jose Gonsales Hemoglobin (Bld) [Mass/Vol] 15.1 g/dL Normal 14.0-18.0 [facility] Comment on above: Performed By: #### H PYLLC #### [facility] [address] [place] [address] Dr. Jose Gonsales IG # 0.02 10e3/ul Normal 0.00-0.03 [facility] Comment on above: Performed By: #### H PYLLC #### [facility] [address] [address] [address] Jose Gonsales IG % 0.3 % Normal 0.0-0.5 [facility] Comment on above: Performed By: #### H PYLLC #### [facility] [address] [address] [address] Jose Gonsales LYMPH # 2.0 103/ul Normal 1.2-3.8 [facility] Comment on above: Performed By: #### H PYLLC #### [facility] [address] [place] [address] Dr. Jose Gonsales Lymphocytes/100 WBC (Bld) 29.5 % Normal 20.5-60.0 [facility] Comment on above: Performed By: #### H PYLLC #### [facility] [address] [place] [address] Dr. Jose Gonsales MANUAL DIFF REQ NO Normal [facility] Comment on above: Performed By: #### H PYLLC #### [facility] [address] [place] [address] Dr. Jose Gonsales MCH (RBC) [Entitic mass] 31.1 pg Normal 25.9-34.0 [facility] Comment on above: Performed By: #### H PYLLC #### [facility] [address] [place] [address] Dr. Jose Gonsales MCHC (RBC) [Mass/Vol] 33.1 g/dL Normal 29.9-35.2 [facility] Comment on above: Performed By: #### H PYLLC #### [facility] [address] [place] [address] Dr. Jose Gonsales MCV (RBC) [Entitic vol] 94.0 fL Normal 80.0-94.0 [facility] Comment on above: Performed By: #### H PYLLC #### [facility] [address] [address] [address] Jose Gonsales MONO # 0.7 103/ul Normal 0.3-0.8 [facility] Comment on above: Performed By: #### H PYLLC #### [facility] [address] [address] [address] Jose Gonsales Monocytes/100 WBC (Bld) 10.4 % Normal 1.7-12.0 [facility] Comment on above: Performed By: #### H PYLLC #### [facility] [address] [address] [address] Jose Gonsales NEUT # 3.9 103/ul Normal 1.4-6.5 [facility] Comment on above: Performed By: #### H PYLLC #### [facility] [address] [address] [address] Jose Gonsales Neutrophils/100 WBC (Bld) 57.6 % Normal 43.0-75.0 [facility] Comment on above: Performed By: #### H PYLLC #### [facility] [address] [place] [address] Dr. Jose Gonsales Platelet mean volume (Bld) [Entitic vol] 10.1 fL Normal 9.5-13.5 [facility] Comment on above: Performed By: #### H PYLLC #### [facility] [address] [place] [address] Dr. Jose Gonsales PLT 147 103/ul Critically low 150-450 [facility] Comment on above: Performed By: #### H PYLLC #### [facility] [address] [address] [address] Jose Gonsales RBC 4.85 106/ul Normal 4.70-6.10 [facility] Comment on above: Performed By: #### H PYLLC #### [facility] [address] [address] [address] Jose Gonsales WBC 6.7 103/ul Normal 4.0-11.0 [facility] Comment on above: Performed By: #### H PYLLC #### [facility] [address] [place] [address] Dr. Jose Gonsales DIGOXINon 12-22-2021 DIG 0.9 ng/mL Normal 0.8-2.0 [facility] Comment on above: Performed By: #### H PYLLC #### [facility] [address] [address] [address] Jose Gonsales POINT OF CARE GLUCOSEon 11-25 Glucose [Mass/Vol] 152 mg/dL Critically high 74-106 [facility] Comment on above: Performed By: #### H PYLLC #### [facility] [address] [address] [address] Jose Gonsales PROF 14(COMP METB)on 022 Albumin [Mass/Vol] 3.5 g/dL Normal 3.4-5.0 [facility] Comment on above: Performed By: #### P T #### [facility] [address] [place] [address] Dr. Jose Gonsales Albumin/Globulin [Mass ratio] 0.9 {ratio} Normal [facility] Comment on above: Performed By: #### P T #### [facility] [address] [place] [address] Dr. Jose Gonsales ALP [Catalytic activity/Vol] 57 U/L Normal 46-116 [facility] Comment on above: Performed By: #### P T #### [facility] [address] [place] [address] Dr. Jose Gonsales ALT [Catalytic activity/Vol] 35 U/L Normal 16-63 [facility] Comment on above: Performed By: #### P T #### [facility] [address] [place] [address] Dr. Jose Gonsales Anion gap [Moles/Vol] 14.2 mmol/L Normal [facility] Comment on above: Performed By: #### P T #### [facility] [address] [place] [address] Dr. Jose Gonsales AST [Catalytic activity/Vol] 24 U/L Normal 15-37 [facility] Comment on above: Performed By: #### P T #### [facility] [address] [place] [address] Dr. Jose Gonsales Bilirubin [Mass/Vol] 0.4 mg/dL Normal 0.2-1.3 [facility] Comment on above: Performed By: #### P T #### [facility] [address] [address] [address] Jose Gonsales Calcium [Mass/Vol] 9.1 mg/dL Normal 8.5-10.1 [facility] Comment on above: Performed By: #### P T #### [facility] [address] [address] [address] Jose Gonsales Chloride [Moles/Vol] 103 mmol/L Normal 98-107 [facility] Comment on above: Performed By: #### P T #### [facility] [address] [address] [address] Jose Gonsales CO2 [Moles/Vol] 24.8 mmol/L Normal 22.0-30.0 [facility] Comment on above: Performed By: #### P T #### [facility] [address] [address] [address] oJse Gonsales Creatinine [Mass/Vol] 1.94 mg/dL Critically high 0.66-1.25 [facility] Comment on above: Performed By: #### P T #### [facility] [address] [address] [address] Jose Gonsales EGFR-AF SAMOAN 42 mL/min/1.73m2 Critically low >=60 [facility] Comment on above: Performed By: #### P T #### [facility] [address] [address] [address] Jose Gonsales EGFR-NON AF SAMOAN 35 mL/min/1.73m2 Critically low >=60 [facility] Comment on above: Performed By: #### P T #### [facility] [address] [address] [address] Jose Gonsales Globulin (S) [Mass/Vol] 3.9 g/dL Normal [facility] Comment on above: Performed By: #### P T #### [facility] [address] [address] [address] Jose Gonsales Glucose [Mass/Vol] 125 mg/dL Critically high 74-106 [facility] Comment on above: Performed By: #### P T #### [facility] [address] [address] [address] Jose Gonsales Potassium [Moles/Vol] 5.0 mmol/L Normal 3.4-5.0 [facility] Comment on above: Performed By: #### P T #### [facility] [address] [address] [address] Jose Gonsales Protein [Mass/Vol] 7.4 g/dL Normal 6.1-8.2 [facility] Comment on above: Performed By: #### P T #### [facility] [address] [address] [address] Jose Gonsales Sodium [Moles/Vol] 137 mmol/L Normal 137-145 [facility] Comment on above: Performed By: #### P T #### [facility] [address] [address] [address] Jose Gonsales Urea nitrogen [Mass/Vol] 37.0 mg/dL Critically high 7.0-18.0 [facility] Comment on above: Performed By: #### P T #### [facility] [address] [address] [address] Jose Gonsales Urea nitrogen/Creatini ne [Mass ratio] 19.1 mg/mg Normal [facility] Comment on above: Performed By: #### P T #### [facility] [address] [address] [address] Jose Gonsales PTT HEPARIN MONITORon 2021 aPTT Coag (Bld) [Time] 27.3 s Critically low 39.5-54.2 [facility] Comment on above: Performed By: #### P TTHEP ####[facility] [id number] [address] Jose Gonsales T3, TOTAL (TRIIODOTHYRONINE) on 12-22-2021 T3, TOTAL 95 ng/dL Normal 71-180 [facility] Comment on above: Performed By: #### P T #### [facility] [address] [address] [address] Jose Gonsales BNPon 03-29-2022 Natriuretic peptide B (Bld) [Mass/Vol] 781.0 pg/mL Normal <=900.0 [facility] Comment on above: Performed By: #### B [employer]GER, CMP ####[facility] [id number] [id number] Jose Gonsales CARDIAC [place] 3-6on 2 CK [Catalytic activity/Vol] 331 U/L Critically high 55-170 [facility] Comment on above: Result Comment: test repeated Performed By: #### P T #### [facility] [address] [address] [address] Jose Gonsales CK.MB [Mass/Vol] 2.24 ng/mL Normal <=2.37 [facility] Comment on above: Performed By: #### P T #### [facility] [address] [address] [address] Jose Gonsales HSTROP 430.1 pg/mL Critically high 4.0-42.2 [facility] Comment on above: Result Comment: CUT- OFF POINTS HAVE BEEN ESTABLISHED BASED ON THE FOURTH UNIVERSAL DEFINITIONS OF MYOCARDIAL INFARCTION. THE UPPER REFERENCE LIMIT (URL) OF TROPONIN, DEFINED THE 99TH PERCENTILE OF cTnI DISTRIBUTION IN A REFERENCE POPULATION, HAS BEEN CONFIRMED THE DECISION THRESHOLD FOR CT DIAGNOSIS. test repeated Performed By: #### P T #### [facility] [address] [address] [address] Jose Gonsales CK [Catalytic activity/Vol] 320 U/L Critically high 55-170 [facility] Comment on above: Result Comment: test repeated Performed By: #### P T #### [facility] [address] [address] [address] Jose Gonsales CK.MB [Mass/Vol] 2.32 ng/mL Normal <=2.37 [facility] Comment on above: Performed By: #### P T #### [facility] [address] [address] [address] Jose Gonsales HSTROP 666.8 pg/mL Critically high 4.0-42.2 [facility] Comment on above: Result Comment: CUT- OFF POINTS HAVE BEEN ESTABLISHED BASED ON THE FOURTH UNIVERSAL DEFINITIONS OF MYOCARDIAL INFARCTION. THE UPPER REFERENCE LIMIT (URL) OF TROPONIN, DEFINED THE 99TH PERCENTILE OF cTnI DISTRIBUTION IN A REFERENCE POPULATION, HAS BEEN CONFIRMED THE DECISION THRESHOLD FOR CT DIAGNOSIS. test repeated Performed By: #### P T #### [facility] [address] [place] [address] Dr. Jose Gonsales CBC AUTO DIFFon 12-21-2021 BASO # 0.0 103/ul Normal 0.0-0.1 [facility] Comment on above: Performed By: #### C BC #### [facility] [address] [place] [address] Dr. Jose Gonsales Basophils/100 WBC (Bld) 0.1 % Critically low 0.2-2.0 [facility] Comment on above: Performed By: #### C BC #### [facility] [address] [place] [address] Dr. Jose Gonsales EO # 0.0 103/ul Normal 0.0-0.7 [facility] Comment on above: Performed By: #### C BC #### [facility] [address] [place] [address] Dr. Jose Gonsales Eosinophils/100 WBC (Bld) 0.1 % Critically low 0.9-7.0 [facility] Comment on above: Performed By: #### C BC #### [facility] [address] [place] [address] Dr. oJse Gonsales Erythrocyte distribution width (RBC) [Ratio] 12.9 % Normal 11.0-15.0 [facility] Comment on above: Performed By: #### C BC #### [facility] [address] [place] [address] Dr. Jose Gonsales Hematocrit (Bld) [Volume fraction] 43.4 % Normal 42.0-54.0 [facility] Comment on above: Performed By: #### C BC #### [facility] [address] [place] [address] Dr. Jose Gonsales Hemoglobin (Bld) [Mass/Vol] 14.7 g/dL Normal 14.0-18.0 [facility] Comment on above: Performed By: #### C BC #### [facility] [address] [address] [address] Jose Gonsales IG # 0.03 10e3/ul Normal 0.00-0.03 [facility] Comment on above: Performed By: #### C BC #### [facility] [address] [address] [address] Jose Gonsales IG % 0.4 % Normal 0.0-0.5 [facility] Comment on above: Performed By: #### C BC #### [facility] [address] [place] [address] Dr. Jose Gonsales LYMPH # 0.9 103/ul Critically low 1.2-3.8 [facility] Comment on above: Performed By: #### C BC #### [facility] [address] [place] [address] Dr. Jose Gonsales Lymphocytes/100 WBC (Bld) 13.9 % Critically low 20.5-60.0 [facility] Comment on above: Performed By: #### C BC #### [facility] [address] [place] [address] Dr. Jose oGnsales MANUAL DIFF REQ NO Normal [facility] Comment on above: Performed By: #### C BC #### [facility] [address] [place] [address] Dr. Jose Gonsales MCH (RBC) [Entitic mass] 31.1 pg Normal 25.9-34.0 [facility] Comment on above: Performed By: #### C BC #### [facility] [address] [place] [address] Dr. Jose Gonsales MCHC (RBC) [Mass/Vol] 33.9 g/dL Normal 29.9-35.2 [facility] Comment on above: Performed By: #### C BC #### [facility] [address] [place] [address] Dr. Jose Gonsales MCV (RBC) [Entitic vol] 91.8 fL Normal 80.0-94.0 [facility] Comment on above: Performed By: #### C BC #### [facility] [address] [place], [place] [id number] Dr. Jose Gonsales MONO # 0.5 103/ul Normal 0.3-0.8 [facility] Comment on above: Performed By: #### C BC #### [facility] [address] [place] [address] Dr. Jose Gonsales Monocytes/100 WBC (Bld) 7.0 % Normal 1.7-12.0 [facility] Comment on above: Performed By: #### C BC #### [facility] [address] [place] [address] Dr. Jose Gonsales NEUT # 5.3 103/ul Normal 1.4-6.5 [facility] Comment on above: Performed By: #### C BC #### [facility] [address] [place] [address] Dr. Jose Gonsales Neutrophils/100 WBC (Bld) 78.5 % Critically high 43.0-75.0 [facility] Comment on above: Performed By: #### C BC #### [facility] [address] [place] [address] Dr. Jose Gonsales Platelet mean volume (Bld) [Entitic vol] 10.1 fL Normal 9.5-13.5 [facility] Comment on above: Performed By: #### C BC #### [facility] [address] [place] [address] Dr. Jose Gonsales PLT 129 103/ul Critically low 150-450 [facility] Comment on above: Performed By: #### C BC #### [facility] [address] [place] [address] Dr. Jose Gonsales RBC 4.73 106/ul Normal 4.70-6.10 [facility] Comment on above: Performed By: #### C BC #### [facility] [address] [place] [address] Dr. Jose Gonsales WBC 6.8 103/ul Normal 4.0-11.0 [facility] Comment on above: Performed By: #### C BC #### [facility] [address] [place] [address] Dr. Jose Gonsales ECHOCARDIO M/2D COMPLETEon 0 3-29-2022 ECHOCARDIO M/2D COMPLETE Patient: PARISH CONTRERAS Exam Date: 12/21/2021 : 1955 Gender:M Ordering : DR JONAS MURILLO . Admission #: [id number] Family : Order #: [id number] CLICK HERE TO VIEW EXAM ECHOCARDIOGRAM REPORT [...] Area(A4C): 17.90 cm2 Left Atrium Systolic Volume(A2C): 11260 mm3 Left Atrium Systolic Volume(A4C): 84814 mm3 Mitral Valve Mitral Valve E-Wave Peak [...] M.D. on 12/21/2021 at 13:03 Normal [facility] POINT OF CARE GLUCOSEon 11-24 Glucose [Mass/Vol] 169 mg/dL Critically high 74-106 [facility] Comment on above: Performed By: #### P TTHEP #### [facility] [address] [address] [address] Jose Gonsales Glucose [Mass/Vol] 128 mg/dL Critically high 74-106 [facility] Comment on above: Performed By: #### P T #### [facility] [address] [address] [address] Jose Gonsales Glucose [Mass/Vol] 151 mg/dL Critically high 74-106 [facility] Comment on above: Performed By: #### P T #### [facility] [address] [address] [address] Jose Gonsales Glucose [Mass/Vol] 136 mg/dL Critically high 74-106 [facility] Comment on above: Performed By: #### P TTHEP #### [facility] [address] [address] [address] Jose Gonsales PROF 14(COMP METB)on 022 Albumin [Mass/Vol] 3.3 g/dL Critically low 3.4-5.0 [facility] Comment on above: Performed By: #### B [employer]GER, CMP #### [facility] [address] [address] [address] Jose Gonsales Albumin/Globulin [Mass ratio] 0.9 {ratio} Normal [facility] Comment on above: Performed By: #### B [employer] MANAGER, CMP #### [facility] [address] [address] [address] Jose Gonsales ALP [Catalytic activity/Vol] 53 U/L Normal 46-116 [facility] Comment on above: Performed By: #### B SENIOR INTERNATIONAL TAX MANAGER, CMP #### [facility] [address] [place] [address] Dr. Jose Gonsales ALT [Catalytic activity/Vol] 22 U/L Normal 16-63 [facility] Comment on above: Performed By: #### B SENIOR INTERNATIONAL TAX MANAGER, CMP #### [facility] [address] [place] [address] Dr. Jose Gonsales Anion gap [Moles/Vol] 12.8 mmol/L Normal [facility] Comment on above: Performed By: #### B SENIOR INTERNATIONAL TAX MANAGER, CMP #### [facility] [address] [place] [address] Dr. Jose Gonsales AST [Catalytic activity/Vol] 21 U/L Normal 15-37 [facility] Comment on above: Performed By: #### B SENIOR INTERNATIONAL TAX MANAGER, CMP #### [facility] [address] [place] [address] Dr. Jose Gonsales Bilirubin [Mass/Vol] 0.5 mg/dL Normal 0.2-1.3 [facility] Comment on above: Performed By: #### B SENIOR INTERNATIONAL TAX MANAGER, CMP #### [facility] [address] [place] [address] Dr. Jose Gonsales Calcium [Mass/Vol] 8.7 mg/dL Normal 8.5-10.1 [facility] Comment on above: Performed By: #### B SENIOR INTERNATIONAL TAX MANAGER, CMP #### [facility] [address] [place] [address] Dr. Jose Gonsales Chloride [Moles/Vol] 104 mmol/L Normal 98-107 [facility] Comment on above: Performed By: #### B SENIOR INTERNATIONAL TAX MANAGER, CMP #### [facility] [address] [place] [address] Dr. Jsoe Gonsales CO2 [Moles/Vol] 25.8 mmol/L Normal 22.0-30.0 [facility] Comment on above: Performed By: #### B SENIOR INTERNATIONAL TAX MANAGER, CMP #### [facility] [address] [place] [address] Dr. Jose Gonsales Creatinine [Mass/Vol] 2.02 mg/dL Critically high 0.66-1.25 [facility] Comment on above: Performed By: #### B SENIOR INTERNATIONAL TAX MANAGER, CMP #### [facility] [address] [place] [address] Dr. Jose Gonsales EGFR-AF SAMOAN 40 mL/min/1.73m2 Critically low >=60 [facility] Comment on above: Performed By: #### B SENIOR INTERNATIONAL TAX MANAGER, CMP #### [facility] [address] [place] [address] Dr. Jose Gonsales EGFR-NON AF SAMOAN 33 mL/min/1.73m2 Critically low >=60 [facility] Comment on above: Performed By: #### B SENIOR INTERNATIONAL TAX MANAGER, CMP #### [facility] [address] [place] [address] Dr. Jose Gonsales Globulin (S) [Mass/Vol] 3.6 g/dL Normal [facility] Comment on above: Performed By: #### B SENIOR INTERNATIONAL TAX MANAGER, CMP #### [facility] [address] [place] [address] Dr. Jose Gonsales Glucose [Mass/Vol] 170 mg/dL Critically high 74-106 [facility] Comment on above: Performed By: #### B SENIOR INTERNATIONAL TAX MANAGER, CMP #### [facility] [address] [place] [address] Dr. Jose Gonsales Potassium [Moles/Vol] 4.6 mmol/L Normal 3.4-5.0 [facility] Comment on above: Performed By: #### B SENIOR INTERNATIONAL TAX MANAGER, CMP #### [facility] [address] [place] [address] Dr. Jose Gonsales Protein [Mass/Vol] 6.9 g/dL Normal 6.1-8.2 [facility] Comment on above: Performed By: #### B SENIOR INTERNATIONAL TAX MANAGER, CMP #### [facility] [address] [place] [address] Dr. Jose Gonsales Sodium [Moles/Vol] 138 mmol/L Normal 137-145 [facility] Comment on above: Performed By: #### B SENIOR INTERNATIONAL TAX MANAGER, CMP #### [facility] [address] [place] [address] Dr. Jose Gonsales Urea nitrogen [Mass/Vol] 40.0 mg/dL Critically high 7.0-18.0 [facility] Comment on above: Performed By: #### B SENIOR INTERNATIONAL TAX MANAGER, CMP #### [facility] [address] [place] [address] Dr. Jose Gonsales Urea nitrogen/Creatini ne [Mass ratio] 19.8 mg/mg Normal [facility] Comment on above: Performed By: #### B SENIOR INTERNATIONAL TAX MANAGER, CMP #### [facility] [address] [place] [address] Dr. Jose Gonsales PROTIMEon 12-21-2021 INR Coag (PPP) [Relative time] 1.08 {INR} Normal [facility] Comment on above: Performed By: #### P T #### [facility] [address] [place] [address] Dr. Jose Gonsales INR GUIDELINES SEE BELOW Normal [facility] Comment on above: Result Comment: GRANT RED INR: 2.0 - 3.0 CONDITIONS NOT LISTED BELOW 2.5 - 3.5 FOR PROSTHETIC HEART VALVE REPLACEMENT 2.5 - 3.5 RECURRENT THROMBOSIS Performed By: #### P T #### [facility] [address] [place] [address] Dr. Jose Gonsales PT Coag (PPP) [Time] 11.6 s Normal 9.0-11.6 [facility] Comment on above: Performed By: #### P T #### [facility] [address] [place] [address] Dr. Jose Gonsales PTT HEPARIN MONITORon 2021 aPTT Coag (Bld) [Time] 55.6 s Critically high 39.5-54.2 [facility] Comment on above: Result Comment: test repeated Performed By: #### H PYLLC #### [facility] [address] [place] [address] Dr. Jose Gonsales aPTT Coag (Bld) [Time] 25.6 s Critically low 39.5-54.2 [facility] Comment on above: Performed By: #### P TTHEP #### [facility] [address] [place] [address] Dr. Jose Gonsales T4on 12-21-2021 T4 [Mass/Vol] 6.40 ug/dL Normal 5.53-11.00 [facility] Comment on above: Performed By: #### H PYLLC #### [facility] [address] [place] [address] Dr. Jose Gonsales TSHon 12-21-2021 TSH 0.660 uIU/mL Normal 0.470-4.680 [facility] Comment on above: Performed By: #### H PYLLC #### [facility] [address] [place] [address] Dr. Jose Gonsales TSH RANGE SEE BELOW Normal [facility] Comment on above: Result Comment: <0.3 4 UIU/ml HYPERTHYROID 0.34-5.60 UIU/ml EUTHYROID >5.60 UIU/ml HYPOTHYROID Performed By: #### H PYLLC #### [facility] [address] [place] [address] Dr. Jose Gonsales CBC W MANUAL DIFFon 12-21-19 22 ATYPICAL LYMPH # Normal [facility] Comment on above: Performed By: #### C BCDANIEL #### [facility] [address] [place] [address] Dr. Jose Gonsales ATYPICAL LYMPH % Normal [facility] Comment on above: Performed By: #### C BCMAN #### [facility] [address] [place] [address] Dr. Jose Gonsales BAND # 0.1 103/ul Normal 0.0-0.3 [facility] Comment on above: Performed By: #### C BCDANIEL #### [facility] [address] [place] [address] Dr. Jose Gonsales BAND % 1 % Normal 0-5 [facility] Comment on above: Performed By: #### C BCDANIEL #### [facility] [address] [place] [address] Dr. Jose Gonsales BASOM # 0.00 103/ul Normal 0.00-0.10 [facility] Comment on above: Performed By: #### C CATHIE #### [facility] [address] [place] [address] Dr. Jose Gonsales BASOM % 0.0 % Critically low 0.2-2.0 [facility] Comment on above: Performed By: #### C CATHIE #### [facility] [address] [place] [address] Dr. Jose Gonsales BLAST # Normal [facility] Comment on above: Performed By: #### C CATHIE #### [facility] [address] [place] [address] Dr. Jose Gonsales BLAST % Normal [facility] Comment on above: Performed By: #### C CATHIE #### [facility] [address] [place] [address] Dr. Jose Gonsales CORRECTED WBC Normal 4.0-11.0 [facility] Comment on above: Performed By: #### C CATHIE #### [facility] [address] [place] [address] Dr. Jose Gonsales EOS # 0.00 103/ul Normal 0.00-0.70 [facility] Comment on above: Performed By: #### C BCDANIEL #### [facility] [address] [place] [address] Dr. Jose Gonsales EOS% 0.0 % Critically low 0.9-7.0 [facility] Comment on above: Performed By: #### C CATHIE #### [facility] [address] [place] [address] Dr. Jose Gonsales HCT 47.0 % Normal 42.0-54.0 [facility] Comment on above: Performed By: #### C BCMAN #### [facility] [address] [address] [address] Jose Gonsales HGB 15.6 g/dl Normal 14.0-18.0 [facility] Comment on above: Performed By: #### C BCMAN #### [facility] [address] [address] [address] Jose Gonsales LYMPHM # 0.43 103/ul Critically low 1.20-3.80 [facility] Comment on above: Performed By: #### C BCDANIEL #### [facility] [address] [place] [address] Dr. Jose Gonsales LYMPHM% 6.0 % Critically low 20.5-60.0 [facility] Comment on above: Performed By: #### C BCDANIEL #### [facility] [address] [place] [address] Dr. Jose Gonsales MCH 30.8 pg Normal 25.9-34.0 [facility] Comment on above: Performed By: #### C BCDANIEL #### [facility] [address] [place] [address] Dr. Jose Gonsales MCHC 33.2 g/dl Normal 29.9-35.2 [facility] Comment on above: Performed By: #### C BCDANIEL #### [facility] [address] [place] [address] Dr. Jose Gonsales MCV 92.9 fL Normal 80.0-94.0 [facility] Comment on above: Performed By: #### C BCDANIEL #### [facility] [address] [place] [address] Dr. Jose Gonsales METAMYELOCYTE # Normal [facility] Comment on above: Performed By: #### C BCMAN #### [facility] [address] [place] [address] Dr. Jose Gonsales METAMYELOCYTE % Normal [facility] Comment on above: Performed By: #### C BCDANIEL #### [facility] [address] [place] [address] Dr. Jose Gonsales MONOM# 0.29 103/ul Critically low 0.30-0.80 [facility] Comment on above: Performed By: #### C CATHIE #### [facility] [address] [place] [address] Dr. Jose Gonsales MONOM% 4.0 % Normal 1.7-12.0 [facility] Comment on above: Performed By: #### C CATHIE #### [facility] [address] [place] [address] Dr. Jose Gonsales MPV 10.1 fL Normal 9.5-13.5 [facility] Comment on above: Performed By: #### C CATHIE #### [facility] [address] [place] [address] Dr. Jose Gonsales MYELOCYTE # Normal [facility] Comment on above: Performed By: #### C CATHIE #### [facility] [address] [place] [address] Dr. Jose Gonsales MYELOCYTE % Normal [facility] Comment on above: Performed By: #### C CATHIE #### [facility] [address] [place] [address] Dr. Jose Gonsales NRBC Normal [facility] Comment on above: Performed By: #### C CATHIE #### [facility] [address] [place] [address] Dr. Jose Gonsales PLT 139 103/ul Critically low 150-450 [facility] Comment on above: Result Comment: no p lt clumping Performed By: #### C CATHIE #### [facility] [address] [place] [address] Dr. Jose Gonsales RBC 5.06 106/ul Normal 4.70-6.10 [facility] Comment on above: Performed By: #### C CATHIE #### [facility] [address] [place] [address] Dr. Jose Gonsales RDW 13.0 % Normal 11.0-15.0 [facility] Comment on above: Performed By: #### C CATHIE #### [facility] [address] [place] [address] Dr. Jose Gonsales SEG # 6.41 103/ul Normal 1.40-6.50 [facility] Comment on above: Performed By: #### C CATHIE #### [facility] [address] [address] [address] Jose Gonsales SEG % 89.0 % Critically high 43.0-75.0 [facility] Comment on above: Performed By: #### Yesy BRAND #### [facility] [address] [address] [address] Jose Gonsales WBC 7.2 103/ul Normal 4.0-11.0 [facility] Comment on above: Performed By: #### C CATHIE #### [facility] [address] [address] [address] HEAD WO CONon [...] ORAL SMALLS Date: 2021-12-20 19:44 Normal [facility] Covid-19 PCR (CVDTB)on 11-24 SARS-CoV-2 (COVID-19) RNA JORDON+probe Ql (Unsp spec) Not detected Normal NOT DETECTED [facility] Comment on above: Result Comment: When diagnostic testing is negative, the possibility of a false negative should be considered in the context of a patient's recent exposures and the presence of clinical signs and symptoms consistent with SARS-CoV-2. This test is not yet approved or cleared by the [place] Food and Drug Administration (FDA). This test was developed by [employer] [place], [place]. The performance characteristics of this test were validated by [facility]. The results are not intended to be used as the sole means for clinical diagnosis or patient management decisions. [facility] is authorized under Clinical Laboratory Improvement Amendments [...] for this test is supported by the [place] of Health and Human Service's declaration that [...] longer be used). Performed By: #### C VDTB #### [facility] [address] [place] [address] Dr. Jose Gonsales INFLUENZA A AND B [facility] 12-20 [facility] SEE BELOW Normal [facility] Comment on above: Result Comment: Nega tive for Flu A protein angiten. Infection due to Flu A cannot be ruled out. Flu A angiten in the sample may be below the detection limit of the test. Performed By: #### P T #### [facility] [address] [place] [address] Dr. Jose Gonsales [facility] SEE BELOW Normal [facility] Comment on above: Result Comment: Nega tive for Flu B protein antigen. Infection due to Flu B cannot be ruled out. Flu B antigen in the sample may be below the detection limit of the test. Performed By: #### P T #### [facility] [address] [place] [address] Dr. Jose Gonsales INFLUENZA A AG Negative Normal NEGATIVE SEE COMMENT [facility] Comment on above: Performed By: #### P T #### [facility] [address] [address] [address] Jose Gonsales INFLUENZA B AG Negative Normal NEGATIVE SEE COMMENT [facility] Comment on above: Performed By: #### P T #### [facility] [address] [place] [address] Dr. Jose Gonsales INTERNAL CONTROLS Within Normal Limits Normal Wi thin Normal Limits [facility] Comment on above: Performed By: #### P T #### [facility] [address] [place] [address] Dr. Jose Gonsales PROF CHEM 8 (BAS METB)on Anion gap [Moles/Vol] 16.9 mmol/L Normal [facility] Comment on above: Performed By: #### H PYLLC #### [facility] [address] [place] [address] Dr. Jose Gonsales Calcium [Mass/Vol] 9.3 mg/dL Normal 8.5-10.1 [facility] Comment on above: Performed By: #### H PYLLC #### [facility] [address] [place] [address] Dr. oJse Gonsales Chloride [Moles/Vol] 102 mmol/L Normal 98-107 [facility] Comment on above: Performed By: #### H PYLLC #### [facility] [address] [place] [address] Dr. Jose Gonsales CO2 [Moles/Vol] 23.0 mmol/L Normal 22.0-30.0 [facility] Comment on above: Performed By: #### H PYLLC #### [facility] [address] [place] [address] Dr. Jose Gonsales Creatinine [Mass/Vol] 2.41 mg/dL Critically high 0.66-1.25 [facility] Comment on above: Performed By: #### H PYLLC #### [facility] [address] [place] [address] Dr. Jose Gonsales EGFR-AF SAMOAN 33 mL/min/1.73m2 Critically low >=60 [facility] Comment on above: Performed By: #### H PYLLC #### [facility] [address] [place] [address] Dr. Jose Gonsales EGFR-NON AF SAMOAN 27 mL/min/1.73m2 Critically low >=60 [facility] Comment on above: Performed By: #### H PYLLC #### [facility] [address] [address] [address] Jose Gonsales Glucose [Mass/Vol] 239 mg/dL Critically high 74-106 [facility] Comment on above: Performed By: #### H PYLLC #### [facility] [address] [address] [address] Jose Gonsales Potassium [Moles/Vol] 4.9 mmol/L Normal 3.4-5.0 [facility] Comment on above: Performed By: #### H PYLLC #### [facility] [address] [address] [address] Jose Gonsales Sodium [Moles/Vol] 137 mmol/L Normal 137-145 [facility] Comment on above: Performed By: #### H PYLLC #### [facility] [address] [address] [address] Jose Gonsales Urea nitrogen [Mass/Vol] 46.0 mg/dL Critically high 7.0-18.0 [facility] Comment on above: Performed By: #### H PYLLC #### [facility] [address] [address] [address] Jose Gonsales Urea nitrogen/Creatini ne [Mass ratio] 19.1 mg/mg Normal [facility] Comment on above: Performed By: #### H PYLLC #### [facility] [address] [address] [address] Jose Gonsales TROPONIN, HIGH SENSITIVITYon 12-20-2021 HSTROP 818.7 pg/mL Critically high 4.0-42.2 [facility] Comment on above: Result Comment: CUT- OFF POINTS HAVE BEEN ESTABLISHED BASED ON THE FOURTH UNIVERSAL DEFINITIONS OF MYOCARDIAL INFARCTION. THE UPPER REFERENCE LIMIT (URL) OF TROPONIN, DEFINED THE 99TH PERCENTILE OF cTnI DISTRIBUTION IN A REFERENCE POPULATION, HAS BEEN CONFIRMED THE DECISION THRESHOLD FOR CT DIAGNOSIS. test repeated Performed By: #### P T #### [facility] [address] [address] [address] Jose Gonsales HSTROP 696.3 pg/mL Critically high 4.0-42.2 [facility] Comment on above: Result Comment: CUT- OFF POINTS HAVE BEEN ESTABLISHED BASED ON THE FOURTH UNIVERSAL DEFINITIONS OF MYOCARDIAL INFARCTION. THE UPPER REFERENCE LIMIT (URL) OF TROPONIN, DEFINED THE 99TH PERCENTILE OF cTnI DISTRIBUTION IN A REFERENCE POPULATION, HAS BEEN CONFIRMED THE DECISION THRESHOLD FOR CT DIAGNOSIS. test repeated Performed By: #### H PYLLC #### [facility] [address] [address] [address] Jose Gonsales XR CHEST 1 Von [...] MARIANELA HERRING Date: 2021-12-20 20:44 Normal [facility] COMP METABOLIC PANELon 08-31 Albumin [Mass/Vol] 4.4 g/dL Normal 3.5-5.7 [facility] Comment on above: Performed By: #### 0 0121 #### [facility] [address] [place] [address], [facility] ALKALINE PHOSPH 65 IU/L Normal 34-104 [facility] Comment on above: Performed By: #### 0 0121 #### [facility] [address] [place] [address], [place] ALT [Catalytic activity/Vol] 19 U/L Normal 7-52 [facility] Comment on above: Performed By: #### 0 0121 #### [facility] [address] [place] [address], [place] AST [Catalytic activity/Vol] 18 U/L Normal 13-39 [facility] Comment on above: Performed By: #### 0 0121 #### [facility] [address] [place] [address], [place] Bilirubin [Mass/Vol] 0.5 mg/dL Normal 0.3-1.0 [facility] Comment on above: Performed By: #### 0 0121 #### [facility] [address] [place] [address], [place] Calcium [Mass/Vol] 9.6 mg/dL Normal 8.6-10.3 [facility] Comment on above: Performed By: #### 0 0121 #### [facility] [address] [place] [address], [place] Chloride [Moles/Vol] 107 mmol/L Normal 98-107 [facility] Comment on above: Performed By: #### 0 0121 #### [facility] [address] [place] [address], [place] CO2 [Moles/Vol] 26 mmol/L Normal 21-31 [facility] Comment on above: Performed By: #### 0 0121 #### [facility] [address] [place] [address], [place] Creatinine [Mass/Vol] 2.01 mg/dL High 0.70-1.30 [facility] Comment on above: Performed By: #### 0 0121 #### [facility] [address] [place] [address], [place] eGFR- 40 ml/min/1.73sq m Abnormal >60 [facility] Comment on above: Performed By: #### 0 0121 #### [facility] [address] [place] [address], [place] eGFR- non- 33 ml/min/1.73sq m Abnormal >60 [facility] Comment on above: Performed By: #### 0 0121 #### [facility] [address] [place] [address], [place] Glucose [Mass/Vol] 130 mg/dL High 70-100 [facility] Comment on above: Performed By: #### 0 0121 #### [facility] [address] [place] [address], [facility] Potassium [Moles/Vol] 5.1 mmol/L Normal 3.5-5.1 [facility] Comment on above: Performed By: #### 0 0121 #### [facility] [address] [place] [address], [facility] Protein [Mass/Vol] 7.1 g/dL Normal 6.0-8.3 [facility] Comment on above: Performed By: #### 0 0121 #### [facility] [address] [place] [address], [facility] Sodium [Moles/Vol] 139 mmol/L Normal 136-145 [facility] Comment on above: Performed By: #### 0 0121 #### [facility] [address] [place] [address], [facility] Urea nitrogen [Mass/Vol] 37 mg/dL High 7-25 [facility] Comment on above: Performed By: #### 0 0121 #### [facility] [address] [place] [address], [facility] HEMOGLOBIN A1Con 08-31-2021 Glucose [Moles/Vol] 157 mmol/L Normal [facility] Comment on above: Performed By: #### 3 [id number] #### [facility] [address] [place] [address], [facility] HbA1c (Bld) [Mass fraction] 7.1 % High 4.0-6.0 [facility] Comment on above: Performed By: #### 3 [id number] #### [facility] [address] [place] [address], [facility] HIV VIRAL LOADon 08-31-2021 HIV QNT RNA PCR: Not detected Normal [facility] Comment on above: Result Comment: The [employer] HIV Quant assay is a real-time phys therapist-mediated amplification (TMA) test which has a dynamic [...] Performed By: #### [id number] #### [facility] [address] LOG 10 COPIES Not detected Normal [facility] Comment on above: Performed By: #### 8 [id number] #### [facility] [address] URINALYSISon 08-31-2021 Appearance (U) CLEAR Normal CLEAR [facility] Comment on above: Performed By: #### 1 0008 #### [facility] [address] Bilirubin Ql (U) Negative Normal NEGATIVE [facility] Comment on above: Performed By: #### 1 0008 #### [facility] [address] Color (U) YELLOW Normal YELLOW [facility] Comment on above: Performed By: #### 1 0008 #### [facility] [address] EPIS NONE SEEN Normal FEW,OCC,NONE SEEN [facility] Comment on above: Performed By: #### 1 0008 #### [facility] [address] [place] [address], [facility] Glucose Ql (U) Negative Normal NEGATIVE [facility] Comment on above: Performed By: #### 1 0008 #### [facility] 3000 [facility] [place] [address], [facility] Hemoglobin Ql (U) TRACE Abnormal NEGATIVE [facility] Comment on above: Performed By: #### 1 0008 #### [facility] 3000 [facility] [place] [address], [facility] KETONE Negative Normal NEGATIVE [facility] Comment on above: Performed By: #### 1 0008 #### [facility] [address] [place] [address], [facility] LEUK SABRINA Negative Normal NEGATIVE [facility] Comment on above: Performed By: #### 1 0008 #### [facility] 3000 [facility] [place] [address], [facility] Nitrite Ql (U) Negative Normal NEGATIVE [facility] Comment on above: Performed By: #### 1 0008 #### [facility] [address] [place] [address], [facility] pH (U) 6.0 [pH] Normal 5.0-8.0 [facility] Comment on above: Performed By: #### 1 0008 #### [facility] [address] [place] [address], [facility] Protein Ql (U) Negative Normal NEGATIVE [facility] Comment on above: Performed By: #### 1 0008 #### [facility] [address] [place] [address], [facility] RBC 0-2 Abnormal NONE SEEN [facility] Comment on above: Performed By: #### 1 0008 #### [facility] [address] SPEC GRAV 1.025 High 1.015-1.020 [facility] Comment on above: Performed By: #### 1 0008 #### [facility] 3000 [place] [address], [facility] WBC UA NONE SEEN Normal NONE SEEN [facility] Comment on above: Performed By: #### 1 0008 #### [facility] [address] [place] [address], [facility] Encounters Encounter Date Encounter Type Care Provider Facility Start: 04-07-2025 ambulatory [facility] Start: 02-18-2025 ambulatory [facility] Start: 01-08-2025 ambulatory [facility] Start: 12-10-2024 ambulatory [facility] Start: 11-07-2024 ambulatory [facility] Start: 11-05-2024 ambulatory [facility] Start: 11-05-2024 End: 11-05-2024 ambulatory SUSHIL[facility] Start: 10-29-2024 End: 10-29-2024 ambulatory [facility] Start: 09-13-2024 ambulatory [facility] Start: 09-10-2024 ambulatory [facility] Start: 08-28-2024 ambulatory [facility] Start: 08-14-2024 ambulatory [facility] Start: 07-19-2024 ambulatory [facility] Start: 07-15-2024 ambulatory [facility] Start: 06-27-2024 ambulatory [facility] Start: 06-19-2024 ambulatory [facility] Start: 05-07-2024 ambulatory [facility] Start: 05-07-2024 ambulatory [facility] Start: 05-07-2024 End: 05-07-2024 ambulatory SUSHILA JOHANSENCTBryan [facility] Start: 04-17-2024 End: 04-17-2024 ambulatory [facility] Start: 02-08-2023 ambulatory Jose BECKER Facility :[facility] Perez Start: 02-03-2023 ambulatory Jose BECKER Facility:[facility] Start: 09-26-2022 ambulatory ARLEN SILVAO Facility:[facility] Start: 09-14-2022 End: 09-15-[address] JONAS MURILLO Facility:[facility] Start: 05-20-[address] ELENO JOHNSON Fac ility:[facility] Start: 05-16-2022 End: 05-17-[address] ELENO JOHNSON Facility:[facility] Start: 04-05-2022 Encounter for other preprocedural examination DR ELENO JOHNSON [facility] Start: 04-05-2022 Encounter for preprocedural laboratory examination DR ELENO JOHNSON [facility] Start: 04-05-2022 End: 04-06-2022 ambulatory JONAS MURILLO [...] above: Performed By: #### P TTHEP #### [facility] [address] [place] [address] Dr. Jose Gonsales Payers Date Payer Category Payer Unknown [id number] 1961 Self-pay [id number] 1961 Unknown [id number] 1955 Unknown [id number] 2.16.8 [id number] 1953 Unknown [id number] 2.16.84 [id number] 1953 Unknown [id number] 2.16.84 [id number] 1953 Unknown [id number] 2.16.84 [id number] 1953 Unknown [id number] 2.16.84 [id number] 1953 Unknown [id number] 2.16.84 [id number] 1953 Unknown [id number] 2.16.84 [id number] 1953 Unknown [id number] 2.16.84 [id number] 1953 Unknown [id number] 2.16.84 [id number] 1953 Unknown [id number] 2.16.84 [id number] 1953 Unknown [id number] 2.16.84 [id number] 1953 Unknown [id number] 2.16.8 [id number] Clinical Notes 03-21-2022 to 04-04-2025 Note Date & Type Note Facility 04-04-2025 Note [facility] called patient r egarding program eligibility. Patient reports daughter typically assist with renewal process. Patient did take down [facility] phone number & email address. Application was completed, will be submitted along with supportive documents when received. [facility] 03-18-2025 Note [facility] called patient r egarding program eligibility. Patient reports daughter typically assist with renewal process. Patient did take down [facility] phone number & email address. Application was completed, will be submitted along with supportive documents when received. [facility] 03-18-2025 Note 03/18 - [facility] reached out to Patient regarding program eligibility. Patient did not answer, [facility] left a voicemail. [facility] 11-08-2024 Note - Management per PCP [facility] 11-08-2024 Note - Patient to continu e on Tivicay and Prezcobix while obtaining routine HIV labs again today. - Medication adherence counselling was provided, including using reminders - HIV transmission reviewed - Counseled on safe sex, using condoms, U=U, the risk of increasing incidence of STDs including syphilis [facility] 11-05-2024 Note Administered Hep A V accine per provider order. Pt tolerated injection/medication with no adverse effects. Correct medication verified by a 2nd medical staff steam conditioner operator. Left deltoid, IM. [facility] 11-05-2024 Note ------ Attestation signed by Sushila Tanner MD at 11/08/2024 8:59 PM (Updated) I performed a history and physical examination [...] care with the following additions and corrections: Doing well, no new complaints. Neuropathy is unchanged A1c 6.9 (7.1 this visit) Labs today CKD stable creatinine 1.8 VL UD Continue tivicay prezcobix, encouraged adherence Not sexually active Discussed the need for flu and hep A #1 from us and shingles vaccine from his local pharmacy Continue with Tramadol and Lyrica for the chronic pain. No history of drug use, no evidence of abuse of prescriptions. Reviewed PDMP Will continue to follow the patient longitudinally. Thank you for allowing us to participate in the care of this patient. . ------ Subjective Patient ID: Parish Contreras is a 69 y.o. male who presents for HIV infection, unspecified symptom status (CMS/HCC); Health Maintenance; and Med Management. HPI 69 yo M with PMHx, Past Surg HX, FMHx and Social Hx presenting for follow up in HIV clinic. Last seen in HIV clinic in April 2024. HIV: - Re-evaluated for HIV. Last seen in HIV clinic in April 2024. HIV history thus far: - date of [...] undetectable. - 2021 CD4 5567 VL UD 2022 stop pifeltro, continue only prezcobix and tivicay daily. VL still 2023: Continuing management with Tivicay and Prezcobix. - Patient since last visit was evaluated by cardiology on Oct 29. Plan by cardiology is to continue GDMT. - Patient currently compliant right now on Tivicay 50mg daily + Prezcobix 800-150mg. Denies any missed doses or issues with meds. - Symptoms: only complains of chronic issues related to his back pain, occasional diarrhea associated with diet, and chronic blindness. = Labs in April 2024: - BMP unremarkable except Cr of 1.7 - WBC of 5.9 - CD4 Abs - 591 - Gonorrhoeae and chlamydia negative - HIV quant less than 30. Diabetes / HLD / Lumbar Hernia: - A1c = 6.9 most recently. - measured blood sugars fasting have ranged between 90 - 140 per patient. - Currently on metformin + Jardiance - Compliant with Crestor 20mg daily for HLD. - Persistent neuropathic pain associated with lumbar spine issues. No definitive planned interventions at this moment of time. Health Care Maintenance: - Agreeable for flu vaccine and Hep A Vaccine Past Medical History: Past Medical History: Diagnosis Date Abnormal ECG Arrhythmia Atrial fibrillation (CMS/HCC) Back pain herniated disc CHF (congestive heart failure) (CMS/HCC) Coronary artery disease Diabetes (CMS/HCC) Heart attack [...] due to dermatophyte Pure hyperglyceridemia Costal chondritis (more content not included)... [facility] 10-29-2024 Note [facility] Subjective Parish Robert Flor is a 69 y.o. year old male patient being seen for Atrial Fibrillation, Coronary Artery Disease, Hyperlipidemia, Congestive Heart Failure, and Shortness of Breath Patient Active Problem List Diagnosis Atrial flutter [...] Coronary artery disease of bypass graft of [place] heart with stable angina pectoris (CMS/HCC) Stage 3b chronic kidney disease (CMS/HCC) Personal history of colonic polyps Anemia Bradycardia Cardiomyopathy, ischemic Diabetes (CMS/HCC) History of myocardial infarction Hx-TIA (transient ischemic attack) Peripheral polyneuropathy Paroxysmal A-fib ([facility]/HCC) Atherosclerotic heart disease Cortical blindness Preventative health care Primary osteoarthritis of both knees Cerebral infarction ([facility]) Displacement of lumbar intervertebral disc without myelopathy Lumbar hernia Thrombophilia ([facility]) HPI Patient has history of coronary artery disease, s/p CABG chronic systolic congestive heart failure, atrial flutter, s/p atrial flutter ablation, hypertension, and hyperlipidemia He states that he has been doing well. He walks on a regular basis. Denies any chest pain or shortness of breath at rest or with exertion. Denies orthopnea or paroxysmal nocturnal dyspnea. He states that occasionally when he lies in bed he feels few skipped beats without any other symptoms. He denies dizziness or syncope or near syncope. He denies legs edema or leg discomfort on exertion ROS All systems were reviewed and they were negative except for the positive findings noted above in the history Past Medical History: Diagnosis Date Abnormal ECG Arrhythmia Atrial fibrillation (CMS/HCC) Back pain herniated disc CHF (congestive heart failure) (CMS/HCC) Coronary artery disease Diabetes (CMS/HCC) Heart attack (CMS/HCC) High cholesterol HIV (human immunodeficiency virus infection) (CMS/HCC) Hyperlipidemia Hypertension Hyperthyroidism Immune system disorder (CMS/HCC) Myocardial infarction (CMS/HCC) Neuropathy Stroke (cerebrum) (CMS/HCC) Past Surgical History: Procedure Laterality Date CHOLECYSTECTOMY COLONOSCOPY 12/16/2009 CORONARY ARTERY BYPASS GRAFT 09/25/2006 x5 HERNIA REPAIR 12/16/2009 lumbilical herniorrhaphy Family History Problem Relation Name Age of Onset Heart attack Father Other (coronary bypass graft) Sister Heart attack Brother Other (coronary bypass graft) Brother Social History Tobacco Use Smoking status: Never Passive exposure: Never Smokeless tobacco: Never Vaping Use Vaping status: Never Used Substance Use Topics Alcohol use: Never Drug use: Never Allergies Allergies Allergen Reactions Ciprofloxacin Unknown Stavudine pancreatitis Sulfa (Sulfonamide Antibiotics) Unknown Ticlopidine Rash Medications Current Outpatient Medications: Eliquis 2.5 mg tablet, TAKE ONE TABLET BY MOUTH TWICE DAILY, Disp: 180 tablet, Rfl: 2 isosorbide mononitrate ER (Imdur) 30 mg 24 hr tablet, TAKE ONE TABLET BY MOUTH EVERY DAY, Disp: 90 tablet, Rfl: 2 Jardiance 10 mg, TAKE ONE TABLET BY MOUTH EVERY DAY, Disp: 90 tablet, Rfl: 2 levothyroxine (Synthroid, Levoxyl) 50 mcg tablet, TAKE ONE TABLET BY MOUTH EVERY DAY, Disp: 90 tablet, Rfl: 2 metFORMIN (Glucophage) 1,000 mg tablet, TAKE ONE TABLET BY MOUTH TWICE DAILY, Disp: 180 tablet, Rfl: 2 metoprolol succinate XL (Toprol-XL) 25 mg 24 hr tablet, Take 1 tablet by mouth once daily, Disp: 90 tablet, Rfl: 2 nitroglycerin (Nitrostat) 0.4 mg SL tablet, Place 0.4 mg under the tongue., Disp: , Rfl: pregabalin (Lyrica) 100 mg capsule, Take 1 capsule (100 mg) by mouth two times daily., Disp: 60 capsule, Rfl: 2 Prezcobix 800-150 mg-mg tablet, TAKE ONE TABLET BY MOUTH EVERY DAY, Disp: 30 tablet, Rfl: 2 rosuvastatin (Crestor) 20 mg tablet, TAKE ONE TABLET BY MOUTH EVERY DAY, Disp: 90 tablet, Rfl: 2 tamsulosin (Flomax) 0.4 mg 24 hr capsule, TAKE ONE CAPSULE BY MOUTH EVERY DAY, Disp: 90 capsule, Rfl: 3 Tivicay 50 mg tablet, TAKE ONE TABLET BY MOUTH EVERY DAY, Disp: 30 tablet, Rfl: 2 traMADol (Ultram) 50 mg tablet, TAKE ONE TABLET BY MOUTH TWICE DAILY, Disp: 60 tablet, Rfl: 2 Contour Test Strips strip, test blood sugar EVERY DAY NEEDED, Disp: 100 strip, Rfl: 4 Objective Visit Vitals Pulse 65 Ht 1.803 m (5' 11 ) Wt 94.3 kg (208 lb) SpO2 97% BMI 29.01 kg/m??? Smoking Status Never BSA 2.17 m??? (more content not included)... [facility] 10-28-2024 Note HIV Quantitative RNA Date Value 05/07/2024 <30 copies/mL 05/10/2022 DETECTED BUT <30 COPIES/ML CD4 Abs (cells/mm3) Date Value 05/07/2024 591 Creatinine (mg/dL) Date Value 05/07/2024 1.70 (H) Last Appointment: 05/07/24 Immunization History Administered Date(s) Administered Hep B, adult 04/29/2003, 06/13/2003, 11/13/2003 Influenza, Seasonal, Quadrivalent, Adjuvanted 07/25/2023 Influenza, Unspecified 06/25/2021, 09/14/2022 Influenza, injectable, MDCK, preservative free, quadrivalent 08/30/2021 Influenza, injectable, quadrivalent 06/21/2016, 07/03/2018 Influenza, injectable, quadrivalent, preservative free 06/21/2016, 06/27/2017, 07/03/2018 Influenza, seasonal, injectable 11/06/2008, 06/25/2011, 06/27/2017 Influenza, trivalent, adjuvanted 08/19/2020 Moderna 12 YR UP Vaccine BiValent Booster 09/15/2021 Moderna SARS-CoV-2 Vaccination 12/21/2020 Pneumococcal Conjugate PCV 13 12/22/2015 Pneumococcal Polysaccharide PPV23 01/06/2009, 06/21/2016, 08/31/2021 Pneumococcal, Unspecified 05/26/2019 Tdap 06/28/2011, 05/07/2024 Unspecified Sars-Cov-2 Vaccination 12/22/2020, 01/19/2021, 09/15/2021 [facility] 05-20-2024 Note MCM phoned Pt to inf orm Pt that eligibility documentation was received. [facility] 05-16-2024 Note MCM received eligibi lity documentation from Pt via fax, but documentation was illegible. [facility] phoned Pt and asked Pt to have documentation re-sent with greater legibility. [facility] 05-07-2024 Note MCM met with Pt to sheela ascencio eligibility documentation. [facility] 05-07-2024 Note ------ Attestation signed by [...] Coronary artery disease Diabetes (CMS/HCC) Heart attack ([facility]/HCC) High cholesterol HIV (human immunodeficiency virus infection) ([facility]/HCC) Hyperlipidemia Hypertension Hyperthyroidism Immune system disorder (CMS/HCC) Myocardial infarction (CMS/HCC) Neuropathy Stroke (cerebrum) ([facility]/HCC) Patient Active Problem List Diagnosis Atrial flutter ([facility]/HCC) Benign prostatic hyperplasia Essential hypertension Human immunodeficiency virus infection ([facility]/HCC) Hyperlipidemia Hypothyroidism Neuralgia and neuritis, unspecified Legal blindness Type 2 diabetes mellitus without complication ([facility]) Transient ischemic attack Onychomycosis due to dermatophyte Pure hyperglyceridemia Costal chondritis Increased frequency of urination (more content not included)... [facility] 04-18-2024 Note [id number] 5 (age, hypertension, stroke, diabetes). No AF since then - has been on low-dose Eliquis 2.5 mg twice daily per Dr. Khan- no bleeding tendencies noted -s/p ablation 10/17 -Continue metoprolol [facility] 04-18-2024 Note Lipid abnormalities are unchanged. Pharmacotherapy as ordered. Continue crestor, reviewed lipid panel and Chol and LDL were well controlled [facility] 04-18-2024 Note Coronary artery dise ase is unchanged. GDMT toprol, crestor, imdur Continue current treatment regimen. Dietary sodium restriction. Regular aerobic exercise. Continue current medications. Cardiac status will be reassessed in 6 months. [facility] 04-18-2024 Note [facility] II, currently e [...] taller/more pillows than normal or in recliner. [facility] 04-17-2024 Note Review of Systems Cardiovascular: Positive for palpitations. Pt complains of one episode of palpitations 3 weeks ago that lasted a couple seconds. He denies all other cardiac symptoms. [facility] 04-17-2024 Note [facility] CARDIOLOGY PROGR ESS [...] chest pain, MEDINA. He was admitted to [facility] in February with GI issues. Potassium [...] g/dL 7.6 EGFR (more content not included)... [facility] 02-08-2023 Note Chief Complaint consultation for [...] tab(s), Oral, Da (more content not included)... [facility] Comment on above: Result Comment: Elec tronically Signed By: ROSITA LANDEROS, Jose Lewis\Date and Time Signed: 02/08/23 16:19 EDT 03-21-2022 Note CARDIAC STRESS TEST Requesting Physician: Procedure Date:03/21/2022 Lexiscan Stress Test with Myocardial Perfusion Imaging performed at the [facility] on 03/21/2022. Informed consent was obtained. An [...] Myocardial perfusion images will be reported separately. [facility] Signed and Approved by: DR ELENO JOHNSON 03/29/2022 20:54:00 [facility] Summary Purpose Family History No Family History [...] and content) DATE CREATED AUTHOR 04/13/2022 [facility] DATE CREATED AUTHOR AUTHOR'S ORGANIZ ATION 09/26/2022 [facility] DATE CREATED AUTHOR AUTHOR'S ORGANIZ ATION 02/08/2023 [facility] DATE CREATED AUTHOR AUTHOR'S ORGANIZ ATION 04/11/2025 [facility] FOR RECORDS PERTAINING TO PATIENTS WHO [...] BE BASED ON THE PRIMARY CLINICAL RECORDS. [facility]. provides no warranty or guarantee of the accuracy or completeness of information in this document.
[2025-04-11 11:50] LABS: Alanine Aminotransferase 25 U/L (16-63); Aspartate Amino Transferase 13 U/L (15-37); Cholesterol 125 mg/dL (<=200); HDL Cholesterol 43 mg/dL (40-60); Triglycerides 140 mg/dL (<=150); VLDL CHOLESTEROL 28.0 mg/dL
== END 2025-04-11 10:52 | disposition home or self-care (01) ==
PROVIDERS: PCP Family Medicine; Visit Provider Internal Medicine Cardiovascular Disease
DX: E78.5 Hyperlipidemia, unspecified (principal)
CPT/HCPCS: 36415; 80061; 84450; 84460

== ENCOUNTER 2025-07-15 13:02 | Outpatient (OUT) | payer MEDICARE, SELFPAY ==
--- OUTSIDE RECORDS SUMMARY | 2025-07-15 13:05 | XMS_ITS | Clinical Summary ---
Author Organization [facility] Healthcare Address [address] [place] [address] Care Team Providers Care Track And Field Coach Name Role Phone Unavailable Primary Care Provider Unavailabl e Social History Tobacco UseTypesPacks/DayYears UsedDateSmoking Tobacco: Never AssessedSex and Gender InformationValueDate RecordedSex Assigned at BirthNot on fileLegal Sex Male12/07/2022 7:19 PM EDTGender IdentityNot on fileSexual OrientationNot on file Plan of Treatment Not on file
--- OUTSIDE RECORDS SUMMARY | 2025-07-15 13:06 | XMS_ITS | Clinical Summary ---
Author Organization [facility] tem Address [id number] [address] [place] [address] Care Team Providers Care Cloth Feeder Name Role Phone Unavailable Primary Care Provider Unavailabl e Immunizations ImmunizationAdministration DatesNext DueCOVID-19, mRNA, LNP-S, PF, 100mcg/0.5mL Dose01/19/2021,12/22/2020 Social History Tobacco UseTypesPacks/DayYears UsedDateSmoking Tobacco: Never AssessedChildcare AnswerDate XcsrbvjtUrcwmxqskVthyhlw62/12/2019EmploymentAnswerDate Recorded TpfgqrkjhrNusczel43/12/2019Sex and Gender InformationValueDate RecordedSex Assigned at BirthNot on fileLegal KbfQfnq5004/29/2015 5:42 PM EDTGender Identity Not on fileSexual OrientationNot on file Plan of Treatment Health MaintenanceDue DateLast DoneCommentsDepression Ksnmtffjs30/20/1965Tobacco Jjgexkzlh64/20/1965Adult BMI Xfybruqco19/20/1971Zoster (Shingles) Vaccine (1 of 2)2003Fall Risk Hwqrryrwd07/20/2018DTaP,Tdap and Td Vaccines (2 - Td or Tdap)/12/2010COVID-19 Vaccine (3 - season)2025 01/19/2021, 12/22/2020Influenza Nkdjeco33/, 07/03/2018, 06/27/2017, Additional history exists Medical Devices Not on file Insurance
--- OUTSIDE RECORDS SUMMARY | 2025-07-15 13:13 | XMS_ITS | CCD ---
Author Organization [facility] Care Team Providers Care Manager Real Estate Name Role Phone JONAS SHEETS Primary Care Unavailable JONAS SHEETS Referring Unavailable ELENO JENKINS V Admitting Unavailable MOUKAELENO SHERIDAN V Attending Unavailable MOUKARBCHAO, DR JOHANSEN Consulting Unavailable MOUKARBEL, DR JOHANSEN Attending Unavailable HOY, DR MCDANIEL Primary Care Unavailable MOUKARBEL, DR JOHANSEN Admitting Unavailable HOY, DR MCDANIEL Primary Care Unavailable HOY, DR MCDANIEL Consulting Unavailable HOY, DR MCDANIEL Attending Unavailable HOY, DR MCDANIEL Admitting Unavailable HAY, DR MONTAGUE Consulting Unavailable MARKER, DR VALADEZ Consulting Unavailable YOUNG, ORAL Consulting Unavailable MARIANELA HERRING Consulting Unavailable ARLEN SIU Admitting Unavailable HOY, DR MCDANIEL Primary Care Unavailable ARLEN SIU Attending Unavailable MOUKARBEL, DR JOHANSEN Attending Unavailable HOY, DR MCDANIEL Primary Care Unavailable MOUKARBEL, DR JOHANSEN Admitting Unavailable HOY, DR MCDANIEL Primary Care Unavailable HOY, DR MCDANIEL Consulting Unavailable CHIDI, DR MCDANIEL Attending Unavailable HOY, DR MCDANIEL Admitting Unavailable HOY, DR MCDANIEL Consulting Unavailable HOY, DR MCDANIEL Attending Unavailable HOY, DR MCDANIEL Admitting Unavailable HOY, DR MCDANIEL Primary Care Unavailable MOUKARBEL, DR JOHANSEN Attending Unavailable CATHYY, DR MCDANIEL Primary Care Unavailable MOUKAARVIN, DR JOHANSEN Admitting Unavailable MOUKARBEL, DR JOHANSEN Consulting Unavailable MOUKARBEL, DR JOHANSEN Consulting Unavailable MOUKARBEL, DR JOHANSEN Attending Unavailable HOY, DR MCDANIEL Primary Care Unavailable MOUKARBEL, DR JOHANSEN Admitting Unavailable TREVON COOK Admitting Unavailable CHIDI, DR MCDANIEL Primary Care Unavailable TREVON COOK Attending Unavailable MOUKARBEL, DR JOHANSEN Attending Unavailable HOY, DR MCDANIEL Primary Care Unavailable WICHITA, DR BRIAN Cuevas Consulting Unavailable MOUKARBEL, DR JOHANSEN Admitting Unavailable MOUKARBEL, DR JOHANSEN Consulting Unavailable Jose BECKER Attending Unavailable Jonas Sheets Referring Unavailable Jose BECKER Attending Unavailable Jonas Sheets Referring Unavailable Jonas Sheets Primary Care Physician [phone] ARLEN SIU Referring Unavailable SUSHILA LUCERO Attending Unavailable SHERRON, ARLEN Referring Unavailable SHERRON, ARLEN Referring Unavailable SHERRON, ARLEN Referring Unavailable SHERRON, ARLEN Referring Unavailable SHERRON, ARLEN Referring Unavailable SHERRON, ARLEN Referring Unavailable SHERRON, ARLEN Referring Unavailable SHERRON, ARLEN Referring Unavailable SHERRON, ARLEN Referring Unavailable SHERRON, ARLEN Referring Unavailable SUSHILA LUCERO Attending Unavailable WILI KAUR Attending Unavailable SHERRON, ARLEN Referring Unavailable TWIN GUILLEN Attending Unavailable SHERRON, ARLEN Referring Unavailable SHERRON, ARLEN Referring Unavailable SHERRON, ARLEN Referring Unavailable Allergies Allergy ClassificationReported Allergen(s)Allergy TypeDate of OnsetReaction(s) Facility (3 sources)liothyronineDrug Ynkwvlj18-95-0764Lve [facility] Repository (1 source)StavudineDrug Vzcyvkt80-69-3900Orb [facility] Repository (2 sources)Ciprofloxacin; Translations: [Cipro]Drug AllergyUnknown (qualifier value)[facility] Repository (3 sources)Stavudine; Translations: [stavudine]Drug Ltkjptu14-81-9921dqtfxlz [facility] Repository (2 sources)Sulfonamides (Antibiotic); Translations: [sulfa drugs]Propensity to adverse reactions (disorder)Unknown (qualifier value)[facility] Repository (3 sources)Ticlopidine; Translations: [ticlopidine]Drug Gmmfsbw11-58-3882 Eruption of skin (disorder)[facility] Repository (1 source)Ciprofloxacin; Translations: [CIPROFLOXACIN]Drug Xlyasqh82-13-3818 [facility] Repository (1 source)Sulfonamides (Antibiotic); Translations: [SULFA (SULFONAMIDE ANTIBIOTICS)]Propensity to adverse reactions to drug (disorder)04-25-2023 [facility] Repository Medications Current Medications MedicationDrug Class(es)DatesSig (Normalized)Sig (Original)apixaban 2.5 mg oral tablet (1 source)Factor Xa InhibitorStart: 89-12-3534occy 1 tablet by mouth once daily Eliquis 2.5 mg oral tablet 2.5 mg = 1 tab(s), Oral, Daily, Refills(s) 0 Start Date: 02/08/23 Status:Ordered Repeat number: 1cobicistat 150 mg / darunavir 800 mg oral tablet (1 source)Protease Inhibitor, Cytochrome P450 3A InhibitorStart: 42-48-3887rkuk 1 tablet by mouth once dailyPrezcobix 800 mg-150 mg oral tablet 1 tab(s), Oral, Daily, Refill(s) 0 Start Date: 02/08/23 Status: Ordered Repeat number: 1 dolutegravir 50 mg oral tablet (1 source)Human Immunodeficiency Virus Integrase Strand Transfer InhibitorStart: 49-44-8038wbzx 1 tablet by mouth once dailyTivicay 50 mg oral tablet 50 mg = 1 tab(s), Oral, Daily, Refills(s) 0 Start Date: 02/08/23 Status: Ordered Repeat number: 1empagliflozin 10 mg oral tablet (1 source)Sodium-Glucose Cotransporter 2 InhibitorStart: 13-38-3793iord 1 tablet by mouth once daily in the morningJardiance 10 mg oral tablet 10 mg = 1 tab(s), Oral, qAM, Refills(s) 0 Start Date: 02/08/23 Status: Ordered Repeat number: 1Fish Oils (1 source)Start: 86-00-9457tamv 1 capsule by mouth three times dailyFish Oil 1200 mg oral capsule 1,200 mg = 1 cap(s), Oral, TID, Refills(s) 0 Start Date: 06/17/25 Status: Ordered Repeat number: 124 hr isosorbide mononitrate 30 mg extended release oral tablet (1 source)Nitrate VasodilatorStart: 03-07-3564tcrt 1 tablet by mouth once daily in the morningisosorbide mononitrate 30 mg ER Tab 30 mg = 1 tab(s), Oral, qAM, Refills(s) 0 Start Date: 02/08/23 Status: Ordered Repeat number: 1levothyroxine sodium 0.05 mg oral tablet (1 source)l-ThyroxineStart: 99-71-4563qbqq 1 tablet by mouth once daily levothyroxine 50 mcg (0.05 mg) Tab 50 mcg = 1 tab(s), Oral, Daily, Refills(s) 0 Start Date: 02/08/23Status: Ordered Repeat number: 1metFORMIN hydrochloride 1000 mg oral tablet (1 source)BiguanideStart: 64-16-1147aosh 1 tablet by mouth twice dailymetformin 1000 mg Tab 1,000 mg = 1 tab(s), Oral, BID, Refills(s) 0 Start Date: 02/08/23 Status: Ordered Repeat number: 124 hr metoprolol succinate 50 mg extended release oral tablet (1 source)beta-Adrenergic BlockerStart: 50-90-7730dbvjhmlsgc 50 mg ER Tab 25 mg = 0.5 tab(s), Oral, Daily, Refills(s) 0 Start Date: 02/08/23 Status: Ordered Repeat number: 1pregabalin 100 mg oral capsule (1 source)Start: 66-26-7608ovqj 1 capsule by mouth twice dailyLyrica 100 mg Cap 100 mg = 1 cap(s), Oral, BID, Refills(s) 0 Start Date: 06/17/25 Status: Ordered Repeat number: 1rosuvastatin calcium 20 mg oral tablet (1 source)HMG-CoA Reductase InhibitorStart: 89-66-2595upjd 1 tablet by mouth once dailyCrestor 20 mg Tab 20 mg = 1 tab(s), Oral, Daily, Refills(s) 0 Start Date: 02/08/23 Status: Ordered Repeat number: 1tamsulosin hydrochloride 0.4 mg oral capsule (1 source)alpha-Adrenergic BlockerStart: 67-94-1997olgc 1 capsule by mouth once dailyFlomax 0.4 mg Cap 0.4 mg = 1 cap(s), Oral, Daily, Refills(s) 0 Start Date: 02/08/23 Status: Ordered Repeat number: 1traMADol hydrochloride 50 mg oral tablet (1 source)Opioid AgonistStart: 53-88-8213Sqqjuk 50 mg Tab as directed, Refills(s) 0 Start Date: 02/08/23 Status: Ordered Repeat number: 1 Problems Active Problems Problem ClassificationProblemDateDocumented DateEpisodic/ChronicAbdominal pain (4 sources)Unspecified abdominal pain; Translations: [UNSPECIFIED ABDOMINAL PAIN]Onset: 03-67-5808AihctjyiJhcxjtigw and vision defects (2 sources)Legal blindness, as defined in [place]; Translations: [Legal blindness, as defined in [place]]Onset: 62-51-3303ZydnrjdJaesnwb dysrhythmias (13 sources)Unspecified atrial flutter; Translations: [Junctional premature depolarization]Onset: 08-61-1024YpugrdkKjmgbqu kidney disease (1 source)Chronic kidney disease stage 2D78-65-6249NxrwcinWldbryl kidney disease (2 sources)Chronic kidney disease; Translations: [Chronic kidney disease, stage 3 unspecified]Onset: 93-41-1330Jvtndtkvbqt and hemorrhagic disorders (1 source)Ubhzoqwmgulcz65-52-8852ZygsotuSntfknyjssoe of device; implant or graft (2 sources)Atherosclerosis of coronary artery bypass graft(s), unspecified, with other forms of angina pectoris; Translations: [Atherosclerosis of coronary artery bypass graft(s), unspecified, with other forms of angina pectoris]Onset: 40-92-3478ZrvwlgmRsdjwfiegc heart failure; nonhypertensive (3 sources)Chronic systolic heart failure; Translations: [Chronic systolic (congestive) heart failure]Onset: 894423-38-6631QbvjomcUwysmean atherosclerosis and other heart disease (5 sources)Atherosclerotic heart disease of [place] coronary artery without angina pectoris; Translations: [Oldmyocardial infarction]Onset: 12-29-2021 19-55-2485WhphtqhQcqwrdrqrp and other anemia (1 source)Anemia, unspecified; Translations: [ANEMIA UNSPECIFIED]Onset: 57-71-5166InhgfwosYqzkuqdams and other anemia (1 source)Lwaoit10-56-5346CqcmnkcvFyaxdxra mellitus with complications (2 sources)Type 2 diabetes mellitus with unspecified complications; Translations: [Type 2 diabetes mellitus with unspecified complications]Onset: 20-93-4504PlqnntdFnibbypv mellitus without complication (3 sources)Diabetes mellitus; Translations: [Type 2 diabetes mellitus without complications]Onset: 665487-54-5388DvcgjalAlcxkxocz of lipid metabolism (4 sources)Hyperlipidemia; Translations: [Hypertriglyceridemia]Onset: 11-05-2024 61-55-1653XklthprBkievengz hypertension (4 sources)Essential (primary) hypertension; Translations: [Hypertensive disorder]Onset: 601346-87-6351SgvptgfZKE infection (6 sources)Asymptomatic human immunodeficiency virus [HIV] infection status; Translations: [Human immunodeficiency virus infection]Onset: 12-29-2021 28-90-2256PanlvozKmbztwspsjt of prostate (2 sources)Benign prostatic hyperplasia without lower urinary tract symptoms; Translations: [Benign prostatic hyperplasia]Onset: hronic Malaise and fatigue (2 sources)Other fatigue; Translations: [Other fatigue]Onset: 55-12-9586Qwowlswn Other and unspecified benign neoplasm (3 sources)History of polyp of colon; Translations: [Personal history of adenomatous and serrated colon polyps]Onset: 22-08-4844TpkdjqarWdleq circulatory disease (1 source)History of cerebrovascular wvxveaos57-72-9067NvzcrumzIdnwz circulatory disease (2 sources)Personal history of other diseases of the circulatory system; Translations: [Personal history of other diseases of the circulatory system] Onset: 84-47-3390NwptbxwnOhlfj eye disorders (1 source)Cortical yjobpnzld94-10-0878QosnnrlAsczj nervous system disorders (1 source)Ounujnlexapnbu35-81-4855GwgoxksUwsod nutritional; endocrine; and metabolic disorders (1 source)Body mass index 30+ - -08-3356KwamguuHdzhg nutritional; endocrine; and metabolic disorders (1 source)Obesity caused by energy pqjaasjrl81-44-4817NhwoegnObdpy nutritional; endocrine; and metabolic disorders (1 source)Abnormal weight loss; Translations: [ABNORMAL WEIGHT LOSS]Onset: 32-04-9972VdvdqjbmLsdyi screening for suspected conditions (not mental disorders or infectious disease) (4 sources)Other abnormal tumor markers; Translations: [Encounter for screening for malignant neoplasm of prostate]Onset: 28-31-5502XwlvlcgdTguytoupws and visceral atherosclerosis (2 sources)Peripheral vascular disease, unspecified; Translations: [Peripheral vascular disease, unspecified]Onset: 68-01-2512CwznrnmVoupaezw codes; unclassified (1 source)Disorientation, unspecified; Translations: [DISORIENTATION UNSPECIFIED]Onset: 86-02-9459DmlhvxyyWpbwhcms codes; unclassified (2 sources)Other specified postprocedural states; Translations: [Other specified postprocedural states]Onset: 47-44-8433HxomyjohOjhdbcz disorders (4 sources)Hypothyroidism, unspecified; Translations: [Hypothyroidism]Onset: 611647-69-7894SemxuapNchfqqacicsd (1 source)CONTACT W/AND (SUSP) EXPOS COVID-19; Translations: [CONTACT W/AND (SUSP) EXPOS COVID-19]Onset: 04-05-2022 Past or Other Problems Problem ClassificationProblemDateDocumented DateEpisodic/ChronicAcute and unspecified renal failure (1 source)Acute kidney failure, unspecified; Translations: [ACUTE KIDNEY FAILURE UNSPECIFIED]Onset: 46-82-4390OxxjevqbJnfogmq dysrhythmias (3 sources)Bradycardia; Translations: [Palpitations]Onset: EpisodicCoronary atherosclerosis and other heart disease (1 source)Presence of aortocoronary bypass graft; Translations: [PRESENCE AORTOCORONARY BYPASS GRAFT]Onset: 54-79-1106PybfefghVfekp aftercare (1 source)long term care pharmacist (current) use of aspirin; Translations: [TERRITORY MANAGER GENERAL SALES CURRENT USE OF ASPIRIN]Onset: 56-79-2504WcjenhcjIfkdh aftercare (1 source)correction (current) use of 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/antiplatelets; Translations: [TERRITORY MANAGER GENERAL SALES ANTITHROMBOT/ANTIPLATLETS]Onset: 26-34-5635Jtoocjta Other aftercare (1 source)correction (current) use of oral hypoglycemic drugs; Translations: [HALFWAY USE ORAL HYPOGLYCEMIC DX]Onset: 52-36-9083MsuageeoVgznh aftercare (1 source)Other nursing home (current) drug therapy; Translations: [OTH TERRITORY MANAGER GENERAL SALES CURRENT DRUG THERAPY]Onset: 83-51-0305FhowyjjzQyicl circulatory disease (1 source)Personal history of transient ischemic attack (TIA), and cerebral infarction without residual deficits; Translations: [PERS HX TIA AND CI NO RESID DEFICIT]Onset: 96-59-7187DmhaasubCgeqn hematologic conditions (1 source)Other specified abnormalities of plasma proteins; Translations: [OTH SPEC ABNORM PLASMA PROTEINS]Onset: 92-07-0312JceiyzemRraya lower respiratory disease (4 sources)Other forms of dyspnea; Translations: [OTHER FORMS OF DYSPNEA]Onset: 02-48-0686YofskiulUnlyo lower respiratory disease (3 sources)Shortness of breath; Translations: [SHORTNESS OF BREATH]Onset: 48-91-8321AvpqwmrsOtlfgmjd codes; unclassified (1 source)Acquired absence of other specified parts of digestive tract; Translations: [ACQ ABSENCE OTH PART DIGESTV TRACT]Onset: 00-16-0861Ergrjkam Results Test NameValueInterpretationReference RangeFacilityOrders Onlyon 07-05-2025 Orders [id number] Parish Contreras 1955 M Date Provider Department Center 07/05/2025 [facility] Family History Problem Relation Age of Onset Heart attack Father Other Sister Heart attack Brother Other Brother Family Status - Relation Status Age at Mother Father Sister BrotherNormalUniversity [facility] HospitalAmbulatory Visit Summaryon 45-81-9803Eturemaooz Visit SummaryAmbulatory Visit Summary PARISH CONTRERAS :1955 Visit Date:07/01/2025 Ambulatory Visit Instructions Your Care Team Attending Physician - ROSITA LANDEROS, Jose He Primary Care Physician - Chidi LANDEROS, Jonas Referring Physician - Jonas Sheets MD This Is Your Medications List Contact prescribing physician if questions or concerns apixaban (Eliquis 2.5 mg oral tablet) cobicistat-darunavir (Prezcobix 800 mg-150 mg oral tablet) dolutegravir (Tivicay 50 mg oral tablet) empagliflozin (Jardiance 10 mg oral tablet) isosorbide mononitrate (isosorbide mononitrate 30 mg ER Tab) levothyroxine (levothyroxine 50 mcg (0.05 mg) Tab) metformin (metformin 1000 mg Tab) metoprolol (metoprolol 50 mg ER Tab) omega-3 polyunsaturated fatty acids (Fish Oil 1200 mg oral capsule) pregabalin (Lyrica 100 mg Cap) rosuvastatin (Crestor 20 mg Tab) tamsulosin (Flomax 0.4 mg Cap) tramadol (Ultram 50 mg Tab) Procedures Performed Colonoscopy (12/16/2009), Repair of umbilical hernia (12/16/2009), CABG - Coronary artery bypass graft, Cardiac catheterization, Implantation of insertable loop recorder, Incision and drainage of abscess, Laparoscopic cholecystectomy. Discharge Vitals Heart Rate (Peripheral) 70 Respiratory Rate 16 Blood Pressure 116/68 Height 180 cm Height 71 in Weight 99.2 kg Weight 218.698 lb BMI 30.62 Medications What How Much When Instructions Unchanged apixaban (Eliquis 2.5 mg oral tablet) 1 Tablets By Mouth Every day Contact prescribing physician if questions or concerns Unchanged cobicistat-darunavir (Prezcobix 800 mg-150 mg oral tablet) 1 Tablets By Mouth Every day Contact prescribing physician if questions or concerns Unchanged dolutegravir (Tivicay 50 mg oral tablet) 1 Tablets By Mouth Every day Contact prescribingphysician if questions or concerns Unchanged empagliflozin (Jardiance [...] prescribing physician if questions or concerns Unchanged omega-3 polyunsaturated fatty acids (Fish Oil 1200 mg oral capsule) 1 Capsules By Mouth 3times a day Contact prescribing physician if questions or concerns Unchanged pregabalin (Lyrica 100 mg Cap) 1 Capsules By Mouth 2 times a day Contact [...] if questions or concerns Allergies Cipro (Unknown) stavudine (unknown) sulfa drugs (Unknown) ticlopidine (Rash) Problems Ongoing - Any problem that you are currently receiving treatment for. Anemia Atherosclerotic heart disease Atrial fibrillation Atrial flutter BMI 30.0-30.9,adult BPH (benign prostatic hyperplasia) Bradycardia Cardiomyopathy, ischemic Chronic kidney disease stage 3B. Chronic systolic heart failure Cortical blindness Diabetes History of CVA (cerebrovascular accident) History of myocardial infarction HIV disease HTN (hypertension) Hyperlipidemia Hypertriglyceridemia Hypothyroidism Inflammatory polyneuropathy Obesity due to excess calories Personal history of colonic polyps Thrombophilia Patient Survey You may receive a survey via text or e-mail asking about your office visit. Please share your experience with us by completing your survey. We appreciate your feedback and thank you for choosing us for your care. Patient Portal You may access all of your results and other medical record information on our secure patient portal. If you are not signed up for this yet, please contact [employer] at [phone] to get signed up today. Language Information Language assistance services are available as needed. [facility]36on 05/13/25 HIV Quantitative RNA Date Value 05/13/2025 <30 copies/mL 05/10/2022 DETECTED BUT <30 COPIES/ML CD4 Abs (cells/mm3) Date Value 05/13/2025 539 Creatinine (mg/dL) Date Value 05/13/2025 1.80 (H) Income on file: YesNormalUniHolzer HospitalRefillon 06-30-2025 [id number] Parish Contreras 1955 M Date Provider Department Center 06/30/2025 281-SUSHILA LUCERO [facility] Family History Problem Relation Age of Onset Heart attack Father Other Sister Heart attack Brother Other Brother Family Status - Relation Status Age at Mother Father Sister Brother Reason for Visit and Comments: Med Refill [[id number]][facility] Onlyon 49-11-9395Ppcfpx [id number] Parish Contreras 1955 M Date Provider Department Center 06/10/2025 325-[facility] Family History Problem Relation Age of Onset Heart attack Father Other Sister Heart attack Brother Other Brother Family Status - Relation Status Age at Mother Father Sister BrotherNormalUniversity [facility] HospitalCB WITH AUTO DIFFERENTIALon 46-37-9929Ysvlucsnv (Bld) [#/Vol]0.01 10*3/uLNormal0.00-0.20UnUpper Valley Medical CenterComment on above:Performed By: #### [id number] #### [facility] ([facility]) [address] [facility], [place] [address]Ggznpszsj/100 WBC (Bld)0.2 %Normal0.0-1.0UnUpper Valley Medical CenterComment on above:Performed By: #### [id number] #### [facility] ([facility]) [address] [facility], [place] [address]Emchprwsfgf (Bld) [#/Vol]0.10 10*3/uLNormal0.00-0.50UnUpper Valley Medical CenterComment on above:Performed By: #### [id number] #### [facility] ([facility]) [address] [place], [place] [address]Kppgfhgerdu/100 WBC (Bld)2.0 %Normal0.0-6.0UnUpper Valley Medical CenterComment on above:Performed By: #### [id number] #### [facility] ([facility]) [address] [facility] [place], [place] [address]Innnvtmgqth distribution width (RBC) [Ratio]13.5 %Normal 11.5-15.0UnUpper Valley Medical CenterComment on above:Performed By: #### [id number] #### [facility] ([facility]) [address] [place], [place] [address]VRRDXAVOOAY MEAN CORPUSCULAR HEMOGLOBIN CONCENTRATION (G/DL) BY FOTMIZEGZ34.6 g/sXBgsikt62.0-35.0UnUpper Valley Medical CenterComment on above:Performed By: #### [id number] #### [facility] ([facility]) [address] [place], [place] [address]Niexceetxp (Bld) [Volume fraction]47.6 %Dpuqss49.0-50.0 [facility] CampusComment on above:Performed By: #### [id number] #### [facility] ([facility]) [address] [place], [place] [address]Gqxklvpjnc (Bld) [Mass/Vol]16.0 g/hHAysdle75.0-17.0UnUpper Valley Medical CenterComment on above:Performed By: #### [id number] #### [facility] ([facility]) [address] [place], [place] [address]Drsvyyie granulocytes (Bld) [#/Vol]0.01 10*3/uLNormal0.00-0.20 [facility] CampusComment on above:Performed By: #### [id number] #### [facility] ([facility]) [address] [place], [place] [address]Xgxehbon granulocytes/100 WBC (Bld)0.2 %Normal0.0-1.0UnUpper Valley Medical CenterComment on above:Performed By: #### [id number] #### [facility] ([facility]) [address] [place], [place] [address]TYIGTWZZ PLATELET FRACTION %2.2 %Normal0.8-6.3UnUpper Valley Medical CenterComment on above:Performed By: #### [id number] #### [facility] ([facility]) [address] [place], [place] [address]Pavccecgvqf (Bld) [#/Vol]1.64 10*3/uLNormal1.20-4.00UnUpper Valley Medical CenterComment on above:Performed By: #### [id number] #### [facility] ([facility]) [address] [place], [place] [address]Pivlbahddfl/100 WBC (Bld)33.4 %Icenxh51.0-45.0UnUpper Valley Medical CenterComment on above:Performed By: #### [id number] #### [facility] ([facility]) [address] [place], [place] [address]ILP (RBC) [Entitic mass]30.4 kgLqqmgy78.0-33.0UnUpper Valley Medical CenterComment on above:Performed By: #### [id number] #### [facility] ([facility]) [address] [place], [place] [address]VVU (RBC) [Entitic vol]90.3 eKRjfsvc46.0-98.0UnUpper Valley Medical CenterComment on above:Performed By: #### [id number] #### [facility] ([facility]) [address] [place], [place] [address]Oirpyrwmx (Bld) [#/Vol]0.41 10*3/uLNormal0.10-1.00UnUpper Valley Medical CenterComment on above:Performed By: #### [id number] #### [facility] ([facility]) [address] [place], [place] [address]Xhrhpxjdr/100 WBC (Bld)8.4 %Normal5.0-12.0UnUpper Valley Medical CenterComment on above:Performed By: #### [id number] #### [facility] ([facility]) [address] [place], [place] [address]Iuoymaxnwvf (Bld) [#/Vol]2.74 10*3/uLNormal1.60-7.60UnUpper Valley Medical CenterComment on above:Performed By: #### [id number] #### [facility] ([facility]) [address] [facility] [place], [place] [address]Hbimjqleavc/100 WBC (Bld)55.8 %Luneel00.0-72.0UnUpper Valley Medical CenterComment on above:Performed By: #### [id number] #### [facility] ([facility]) [address] [facility] [place] [place], [place] [address]PADP (PER 100 WBCS) BY AUTOMATED COUNT0.0 %Nrxpqv7RdfaumselqUpper Valley Medical CenterComment on above:Performed By: #### [id number] #### [facility] ([facility]) [address] [facility] [place] [place] [address]RMIFUSYVW (10*3/UL) IN BLOOD AUTOMATED [id number] 10*3/uLLow 150-400UnUpper Valley Medical CenterComment on above:Performed By: #### [id number] #### [facility] ([facility]) [address] [place] [address]OOV (Bld) [#/Vol]5.27 10*6/uLNormal3.80-5.70UnUpper Valley Medical CenterComment on above:Performed By: #### [id number] #### [facility] ([facility]) [address] [place], [place] [address]WZG (Bld) [#/Vol]4.91 10*3/uLNormal4.00-10.60UnUpper Valley Medical CenterComment on above:Performed By: #### [id number] #### [facility] ([facility]) [address] [place], [place] [address]VMGUIZUHK TRACHOMATIS AND NEISSERIA GONORRHEA, TMAon 05-13-2025 CHLAMYDIA TRACHOMATIS DNA PROBE (PRESENCE) IN UNSP SPECNegativeNormalNegative [facility] CampusComment on above:Result Comment: No Chlamydia trachomatis rRNA Detected. The Aptima Combo 2 Assay is a FDA approved target amplification nucleic acid probe test that utilizes target capture for the in vitro qualitative detection and differentiation of ribosomal RNA (rRNA)from Chlamydia trachomatis (CT) and/or Neisseria gonorrhoeae (GC) to aid the diagnosis of chlamydial and/or gonococcal urogenital disease using the [place] System. The Aptima Combo 2 Assay involves target capture, target amplification by Streetcar Repairer Helper-Mediated Amplification (TMA), and the detection of the amplification products (amplicon) by the Hybridization Protection Assay (HPA). The internal process controls of the [place] System monitor the target capture, amplification, and detection steps of the assay, this is not intended to control for sampling adequacy.Performed By: #### [id number] ####[facility] ([facility])[address] [place] [facility] [place] [address]PDARMOPBJ GONORRHOEAE DNA PROBE (PRESENCE) IN UNSP SPECNegativeNormalNegativeUnUpper Valley Medical Center Comment on above:Result Comment: No Neisseria gonorrhoeae rRNA Detected. The Aptima Combo 2 Assay is a FDA approved target amplification nucleic acid probe test that utilizes target capture for the in vitro qualitative detection and differentiation of ribosomal RNA (rRNA)from Chlamydia trachomatis (CT) and/or Neisseria gonorrhoeae (GC) to aid the diagnosis of chlamydial and/or gonococcal urogenital disease using the [place] System. The Aptima Combo 2 Assay involves target capture, target amplification by Streetcar Repairer Helper-Mediated Amplification (TMA), and the detection of the amplification products (amplicon) by the Hybridization Protection Assay (HPA). The internal process controls of the [place] System monitor the target capture, amplification, and detection steps of the assay, this is not intended to control for sampling adequacy.Performed By: #### [id number] ####[facility] ([facility])[address] [place], [place] [address]MLLPJHPGMTJPH METABOLIC PANELon 14-75-5880Ffdyhqj [Mass/Vol]4.6 g/dLNormal3.5-5.7UnUpper Valley Medical CenterComment on above:Performed By: #### [id number] ####[facility] ([facility])[address] [place], [place] [address]VQD [Catalytic activity/Vol]63 U/L Cztxux56-088KlrasqttagUpper Valley Medical CenterComment on above:Performed By: #### [id number] ####[facility] ([facility])[address] [place], [place] [address]CDQ [Catalytic activity/Vol]13 U/LNormal7-52UnUpper Valley Medical Center Comment on above:Performed By: #### [id number] ####[facility] ([facility])[address] [place], [place] [address]Cbkay gap [Moles/Vol]10 mmol/LNormal7-20UnUpper Valley Medical CenterComment on above:Performed By: #### [id number] ####[facility] ([facility])[address] [place], [place] [address]VEV [Catalytic activity/Vol]14 U/VIpdjqn93-61Ujcozwzpvu of Jaeger Medical CenterComment on above:Performed By: #### [id number] ####[facility] ([facility])[address] [place], [place] [address]Pwgeczixr [Mass/Vol]0.6 mg/dLNormal0.3-1.0UnUpper Valley Medical CenterComment on above:Performed By: #### [id number] ####[facility] ([facility])[address] [place], [place] [address]Noheaog [Mass/Vol]9.7 mg/dLNormal 8.6-10.3UnUpper Valley Medical CenterComment on above:Performed By: #### [id number] ####[facility] ([facility])[address] [place], [place] [address]Jzdyryhq [Moles/Vol]107 mmol/SNhliyk99-727XkenzklpelUpper Valley Medical CenterComment on above:Performed By: #### [id number] ####[facility] ([facility])[address] [place], [place] [address]VE4 [Moles/Vol]26 mmol/DPzeecq52-20OmjznydjolUpper Valley Medical CenterComment on above:Performed By: #### [id number] ####[facility] ([facility])[address] [place], [place] [address]Rnivpyflvw [Mass/Vol]1.80 mg/dLHigh 0.60-1.30UnUpper Valley Medical CenterComment on above:Performed By: #### [id number] ####[facility] ([facility])[address] [place], [place] [address]NDFOBQAIPL FILTRATION RATE ML/MIN/1.73 SQ M.MHETBUFDK10.6 mL/min/1.73m*2Low>60.0UnUpper Valley Medical CenterComment on above:Result Comment: [facility]???s estimated glomerular filtration rate (eGFR) will no [...] potential consequences that do not disproportionately affect anyone group of individuals. Performed By: #### [id number] ####[facility] ([facility])[address] [place], [place] [address]Icnwibw [Mass/Vol]114 mg/cBVdvv76-707MxfzdngilaUpper Valley Medical CenterComment on above:Performed By: #### [id number] ####[facility] ([facility])[address] [place], [place] [address]Wukpmcagp [Moles/Vol]4.8 mmol/LNormal 3.5-5.1UnUpper Valley Medical CenterComment on above:Performed By: #### [id number] ####[facility] ([facility])[address] [place], [place] [address]Bvurbcr [Mass/Vol]7.6 g/dLNormal6.0-8.3[facility] CampusComment on above:Performed By: #### [id number] ####[facility] ([facility])[address] [place], [place] [address]Fcstxu [Moles/Vol]138 mmol/LZzdzqe167-903ItyujjadyrUpper Valley Medical CenterComment on above:Performed By: #### [id number] ####[facility] ([facility])[address] [place], [place] [address]Pnhg nitrogen [Mass/Vol]30 mg/dLHigh 7-25UnUpper Valley Medical CenterComment on above:Performed By: #### [id number] ####[facility] ([facility])[address] [place], [place] [address]SEUG NITROGEN/CREATININE (MASS RATIO) IN SER/PLAS16.7NormalUniHolzer HospitalComment on above:Performed By: #### [id number] ####[facility] ([facility])[address], [place] [address]WZZVLZAJAD A1Con 77-96-0224Jtzvbkx [Mass/Vol]163 mg/dLNormalUniHolzer HospitalComment on above: Performed By: #### [id number] #### [facility] ([facility]) [address] [place] [address]VeZ3r (Bld) [Mass fraction]7.3 %High4.0-6.0UnUpper Valley Medical CenterComment on above:Performed By: #### [id number] #### [facility] ([facility]) [address] [place] [address]Yqjtbo Visiton 51-95-9078Ljfkig-up [id number] Parish Contreras 1955 M Date Provider Department Center 05/13/2025 [facility] Family History Problem Relation Age of Onset Heart attack Father Other Sister Heart attack Brother Other Brother Family Status - Relation Status Age at Mother Father Sister Brother Level of Service:48477 PA OFFICE/OUTPATIENT ESTABLISHED MOD MDM 30 MIN Reason for Visit and Comments: Health Maintenance [619] - Med Management [[id number]]NormalUnUpper Valley Medical CenterT CELL SUBSET ANALYSISon 15-40-2550NA711.50 %Aufukf12.00-90.00UnUpper Valley Medical CenterComment on above:Performed By: #### [id number] #### [facility] ([facility]) [address] [place] [place], [place] [address]BT7 [id number] cells/lp1Hrqbid421-7497GtdnqacmsqUpper Valley Medical CenterComment on above:Performed By: #### [id number] #### [facility] ([facility]) [address] [place], [place] [address]UB651.85 %Low40.00-70.00UnUpper Valley Medical Center Comment on above:Performed By: #### [id number] #### [facility] ([facility]) [address] [place], [place] [address]KL9 [id number] cells/cl3Fpaerz183-5426RjmslxekzjUpper Valley Medical CenterComment on above:Performed By: #### [id number] #### [facility] ([facility]) [address] [place], [place] [address]BP2:CD80.98Low1.00-4.00[facility] Comment on above:Performed By: #### [id number] #### [facility] ([facility]) [address] [place], [place] [address]UB251.39 %Gexthu51.00-40.00[facility] Comment on above:Performed By: #### [id number] #### [facility] ([facility]) [address] [place], [place] [address]ZN7 UIWZFHTD822 cells/zi3Ebclpu536-630YveypmeohwUpper Valley Medical CenterComment on above:Performed By: #### [id number] #### [facility] ([facility]) [address] [place], [place] [address]Rqtrjr Onlyon 81-64-0948Lapctn [id number] Parish Contreras 1955 M Date Provider Department Center 05/08/2025 325-[facility] [place] HeartVAS Family History Problem Relation Age of Onset Heart attack Father Other Sister Heart attack Brother Other Brother Family Status - Relation Status Age at Mother Father Sister BrotherNoACMC Healthcare System GlenbeighOrders Onlyon 53-92-8134Gkjbwy [id number] Parish Contreras 1955 M Date Provider Department Center 05/05/2025 172[facility] Family History Problem Relation Age of Onset Heart attack Father Other Sister Heart attack Brother Other Brother Family Status - Relation Status Age at Mother Father Sister BrotherNoACMC Healthcare System GlenbeighRefillon [id number] [id number] Parish Contreras 1955 M Date Provider Department Center 05/05/2025 281[facility] Family History Problem Relation Age of Onset Heart attack Father Other Sister Heart attack Brother Other Brother Family Status - Relation Status Age at Mother Father Sister Brother Reason for Visit and Comments: Med Refill [[id number]]NormalUnUpper Valley Medical Center36on MD Kassandra Vargas MA Very good lipids and AST ALT, continue current management and recheck in 6 months Phone call to patient advised patient of lab results per Dr. Guillen. Patient verbalized understanding.[facility]36on [id number] lab results from 04/11/2025: MD Kassandra Vargas MA Very good lipids and AST ALT, continue current management and recheck in [address] [facility] HospitalOffice Visiton 66-61-0313Flhbnk- up [id number] Parish Contreras 1955 M Date Provider Department Center 04/17/2025 Onelia-WILI KAUR Family History Problem Relation Age of Onset Heart attack Father Other Sister Heart attack Brother Other Brother Family Status - Relation Status Age at Mother Father Sister Brother Level of Service:43606 PA OFFICE/OUTPATIENT ESTABLISHED MOD MDM 30 MIN Reason for Visit and Comments: Atrial Flutter [101] Coronary Artery Disease [187] Congestive Heart Failure [127] Hypertension [360919][facility]36on 05/13/25 11/05/24 HIV Quantitative RNA Date Value 11/05/2024 Comment: Not Detected 05/10/2022 DETECTED BUT <30 COPIES/ML CD4 Abs (cells/mm3) Date Value 11/05/2024 533 Creatinine (mg/dL) Date Value 11/05/2024 1.88 (H) Income on file: NoNormalUnUpper Valley Medical CenterRefillon 04-01-2025 [id number] Parish Contreras 1955 M Date Provider Department Center 04/01/2025 Aubrey-SUSHILA LUCERO [facility] Family History Problem Relation Age of Onset Heart attack Father Other Sister Heart attack Brother Other Brother Family Status - Relation Status Age at Father Sister Brother Reason for Visit and Comments: Med Refill [[id number]]UC [id number] Parish Contreras 1955 M Date Provider Department Center 04/01/2025 281-TERRELLU SUSHILA [facility] Family History Problem Relation Age of Onset Heart attack Father Other Sister Heart attack Brother Other Brother Family Status - Relation Status Age at Father Sister Brother Reason for Visit and Comments: Med Refill [[id number]]UC HealthPatient Outreachon 12-72-7874Lonyahs [id number] Parish Contreras 1955 Provider Department Center 03/18/2025 55703-YIWQUTO BRANDI C CARE [facility] Family History Problem Relation Age of Onset Heart attack Father Other Sister Heart attack Brother Other Brother Family Status - Relation Status Age at Father Sister Brother Reason for Visit and Comments: eligibility 2024 [Other][facility] HealthRefillon [id number] Parish Contrersa 1955 Provider Department Center 02/10/2025 281-SNEHA LUCEROIU [facility] Family History Problem Relation Age of Onset Heart attack Father Other Sister Heart attack Brother Other Brother Family Status - Relation Status Age at Father Sister Brother Reason for Visit and Comments: Med Refill [[id number]][facility] HealthRefillon 01-13-2025 [id number] Parish Contreras 1955 Provider Department Center 01/13/2025 281-SNEHA LUCEROIU [facility] Family History Problem Relation Age of Onset Heart attack Father Other Sister Heart attack Brother Other Brother Family Status - Relation Status Age at Father Sister Brother Reason for Visit and Comments: Med Refill [[id number]]UC HealthRefillon 11-18-2024 [id number] Parish Contreras 1955 [facility] Provider Department Center 11/18/2024 281-NIC SUSHILA [facility] Family History Problem Relation Age of Onset Heart attack Father Other Sister Heart attack Brother Other Brother Family Status - Relation Status Age at Father Sister Brother Reason for Visit and Comments: Med Refill [[id number]]NormalKettering Health Main Campus36on Regarding lab results from 11/05/2024: MD Kassandra Vargas MA LDL [...] Apr 2025. Lab results faxed to Dr. Sheets's office. Patient verbalized understanding.NormalKettering Health Main CampusCBC WITH AUTO DIFFERENTIALon 23-15-3180Dorihhxid (Bld) [#/Vol]0.02 10*3/uLNormal0.00-0.20 [facility] CampusComment on above:Performed By: #### [id number] #### [facility] ([facility]) [address] [place], [place] [address]Mlnnrxpoi/100 WBC (Bld)0.4 %Normal0.0-1.0UnUpper Valley Medical CenterComment on above:Performed By: #### [id number] #### [facility] ([facility]) [address] [place], [place] [address]Ldufetcmdma (Bld) [#/Vol]0.19 10*3/uLNormal0.00-0.50UnUpper Valley Medical CenterComment on above:Performed By: #### [id number] #### [facility] ([facility]) [address] [place], [place] [address]Qixvnxpysnn/100 WBC (Bld)3.5 %Normal0.0-6.0UnUpper Valley Medical CenterComment on above:Performed By: #### [id number] #### [facility] ([facility]) [address] [place], [place] [address]Vscugfqssvd distribution width (RBC) [Ratio]12.8 %Normal 11.5-15.0UnUpper Valley Medical CenterComment on above:Performed By: #### [id number] #### [facility] ([facility]) [address] [place], [place] [address]NZZTBWUOIYW MEAN CORPUSCULAR HEMOGLOBIN CONCENTRATION (G/DL) BY SIBLVBAPP49.1 g/jVJkukmi48.0-35.0UnUpper Valley Medical CenterComment on above:Performed By: #### [id number] #### [facility] ([facility]) [address] [place], [place] [address]Pvxamuyeme (Bld) [Volume fraction]49.2 %Sopmox47.0-55.0 [facility] CampusComment on above:Performed By: #### [id number] #### [facility] ([facility]) [address] [place], [place] [address]Kjedzdzuem (Bld) [Mass/Vol]16.3 g/bPYhonrd50.0-17.0UnUpper Valley Medical CenterComment on above:Performed By: #### [id number] #### [facility] ([facility]) [address] [place], [place] [address]Tprsvfst granulocytes (Bld) [#/Vol]0.01 10*3/uLNormal0.00-0.20 [facility] CampusComment on above:Performed By: #### [id number] #### [facility] ([facility]) [address] [place], [place] [address]Itczbycy granulocytes/100 WBC (Bld)0.2 %Normal0.0-1.0UnUpper Valley Medical CenterComment on above:Performed By: #### [id number] #### [facility] ([facility]) [address] [place], [place] [address]SZWNFPWR PLATELET FRACTION %1.6 %Normal0.8-6.3UnUpper Valley Medical CenterComment on above:Performed By: #### [id number] #### [facility] ([facility]) [address] [place] [place], [place] [address]Bmekptdybxs (Bld) [#/Vol]1.81 10*3/uLNormal1.20-4.00UnUpper Valley Medical CenterComment on above:Performed By: #### [id number] #### [facility] ([facility]) [address] [place] [address]Sznfhzcmiad/100 WBC (Bld)33.1 %Utcxyc36.0-45.0UnUpper Valley Medical CenterComment on above:Performed By: #### [id number] #### [facility] ([facility]) [address] [place] [address]CHC (RBC) [Entitic mass]30.9 poQylmwx89.0-33.0UnUpper Valley Medical CenterComment on above:Performed By: #### [id number] #### [facility] ([facility]) [address] [place] [place] [address]SIP (RBC) [Entitic vol]93.4 gRNpskjg19.0-98.0UnUpper Valley Medical CenterComment on above:Performed By: #### [id number] #### [facility] ([facility]) [address] [place] [address]Jckwffxka (Bld) [#/Vol]0.41 10*3/uLNormal0.10-1.00UnUpper Valley Medical CenterComment on above:Performed By: #### [id number] #### [facility] ([facility]) [address] [place] [address]Gxfiifzut/100 WBC (Bld)7.5 %Normal5.0-12.0UnUpper Valley Medical CenterComment on above:Performed By: #### [id number] #### [facility] ([facility]) [address] [place] [address]Gqoicrsscly (Bld) [#/Vol]3.03 10*3/uLNormal1.60-7.60UnUpper Valley Medical CenterComment on above:Performed By: #### [id number] #### [facility] ([facility]) [address] [place] [address]Ownqrvsjzwt/100 WBC (Bld)55.3 %Lbsfbe47.0-72.0UnUpper Valley Medical CenterComment on above:Performed By: #### [id number] #### [facility] ([facility]) [address] [place] [address]JBVR (PER 100 WBCS) BY AUTOMATED COUNT0.0 %Cdzblz5FtexzwuqmtUpper Valley Medical CenterComment on above:Performed By: #### [id number] #### [facility] ([facility]) [address] [place] [place] [address]EXFJSNPVY (10*3/UL) IN BLOOD AUTOMATED XEYRV033 10*3/uLLow 150-400UnUpper Valley Medical CenterComment on above:Performed By: #### [id number] #### [facility] ([facility]) [address] [place] [address]GIZ (Bld) [#/Vol]5.27 10*6/uLNormal4.20-5.70UnUpper Valley Medical CenterComment on above:Performed By: #### [id number] #### [facility] ([facility]) [address] [place] [address]JFI (Bld) [#/Vol]5.47 10*3/uLNormal4.00-10.60UnUpper Valley Medical CenterComment on above:Performed By: #### [id number] #### [facility] ([facility]) [address] [place], [place] [address]HKEJQFSPY TRACHOMATIS AND NEISSERIA GONORRHEA, TMAon 11-05-2024 CHLAMYDIA TRACHOMATIS DNA PROBE (PRESENCE) IN UNSP SPECNegativeNormalNegative [facility] CampusComment on above:Result Comment: No Chlamydia trachomatis rRNA Detected. The Aptima Combo 2 Assay is a FDA approved target amplification nucleic acid probe test that utilizes target capture for the in vitro qualitative detection and differentiation of ribosomal RNA (rRNA)from Chlamydia trachomatis (CT) and/or Neisseria gonorrhoeae (GC) to aid the diagnosis of chlamydial and/or gonococcal urogenital disease using the [place] System. The Aptima Combo 2 Assay involves target capture, target amplification by Streetcar Repairer Helper-Mediated Amplification (TMA), and the detection of the amplification products (amplicon) by the Hybridization Protection Assay (HPA). The internal process controls of the [place] System monitor the target capture, amplification, and detection steps of the assay, this is not intended to control for sampling adequacy.Performed By: #### [id number] #### [facility] ([facility]) [address] [place] [address]VDPYGCRAR GONORRHOEAE DNA PROBE (PRESENCE) IN UNSP SPECNegative NormalNegativeUnUpper Valley Medical CenterComment on above:Result Comment: No Neisseria gonorrhoeae rRNA Detected. The Aptima Combo 2 Assay is a FDA approved target amplification nucleic acid probe test that utilizes target capture for the in vitro qualitative detection and differentiation of ribosomal RNA (rRNA)from Chlamydia trachomatis (CT) and/or Neisseria gonorrhoeae (GC) to aid the diagnosis of chlamydial and/or gonococcal urogenital disease using the [place] System. The Aptima Combo 2 Assay involves target capture, target amplification by Streetcar Repairer Helper-Mediated Amplification (TMA), and the detection of the amplification products (amplicon) by the Hybridization Protection Assay (HPA). The internal process controls of the [place] System monitor the target capture, amplification, and detection steps of the assay, this is not intended to control for sampling adequacy.Performed By: #### [id number] #### [facility] ([facility]) [address] [place] [address]RJQPUSFUNWEMP METABOLIC PANELon 03-63-5484Lnqmdqb [Mass/Vol]4.6 g/dLNormal3.5-5.7UnUpper Valley Medical CenterComment on above:Performed By: #### [id number] #### [facility] ([facility]) [address] [place] [address]BZJ [Catalytic activity/Vol]66 U/BFoahmb92-701XhbwvnkqqfUpper Valley Medical CenterComment on above:Performed By: #### [id number] #### [facility] ([facility]) [address] [place] [address]EWQ [Catalytic activity/Vol]14 U/LNormal7-52UnUpper Valley Medical CenterComment on above:Performed By: #### [id number] #### [facility] ([facility]) [address] [place], [place] [address]Odozs gap [Moles/Vol]12 mmol/LNormal7-20UnUpper Valley Medical CenterComment on above:Performed By: #### [id number] #### [facility] ([facility]) [address] [place], [place] [address]XMP [Catalytic activity/Vol]15 U/WQffhye65-44TnasocjisuUpper Valley Medical CenterComment on above:Performed By: #### [id number] #### [facility] ([facility]) [address] [place], [place] [address]Pnbzdalyo [Mass/Vol]0.6 mg/dLNormal0.3-1.0UnUpper Valley Medical CenterComment on above:Performed By: #### [id number] #### [facility] ([facility]) [address] [place], [place] [address]Wbtikfo [Mass/Vol]9.7 mg/dLNormal8.6-10.3UnUpper Valley Medical CenterComment on above:Performed By: #### [id number] #### [facility] ([facility]) [address] [place], [place] [address]Tvyecyja [Moles/Vol]105 mmol/NMbyjpx78-384PfqmvvqxidUpper Valley Medical CenterComment on above:Performed By: #### [id number] #### [facility] ([facility]) [address] [place], [place] [address]HU6 [Moles/Vol]27 mmol/SRrpedz67-89VretfsocfwUpper Valley Medical CenterComment on above:Performed By: #### [id number] #### [facility] ([facility]) [address] [place], [place] [address]Shfdptiokl [Mass/Vol]1.88 mg/dLHigh0.70-1.30UnUpper Valley Medical CenterComment on above:Performed By: #### [id number] #### [facility] ([facility]) [address] [place] [address]RLRCQGEJGK FILTRATION RATE ML/MIN/1.73 SQ M.UDURYSBYC80.7 mL/min/1.73m*2Low>60.0UnUpper Valley Medical CenterComment on above:Result Comment: [facility]???s estimated glomerular filtration rate (eGFR) will no [...] potential consequences that do not disproportionately affect anyone group of individuals.Performed By: #### [id number] #### [facility] ([facility]) [address] [place] [address]Prmferu [Mass/Vol]112 mg/tUBebp64-502PzpmlqnupuUpper Valley Medical CenterComment on above:Performed By: #### [id number] #### [facility] ([facility]) [address] [place] [address]Rzbfxcizl [Moles/Vol]4.5 mmol/LNormal3.5-5.1UnUpper Valley Medical CenterComment on above:Performed By: #### [id number] #### [facility] ([facility]) [address] [place] [address]Tdvxyff [Mass/Vol]7.2 g/dLNormal6.0-8.3UnUpper Valley Medical CenterComment on above:Performed By: #### [id number] #### [facility] ([facility]) [address] [place] [address]Mgaxar [Moles/Vol]139 mmol/NEvktkx334-051KkqjkqkzduUpper Valley Medical CenterComment on above:Performed By: #### [id number] #### [facility] ([facility]) [address] [place] [address]Hfir nitrogen [Mass/Vol]27 mg/dLHigh7-25UnUpper Valley Medical CenterComment on above:Performed By: #### [id number] #### [facility] ([facility]) [address] [place], [place] [address]FHVZ NITROGEN/CREATININE (MASS RATIO) IN SER/PLAS14.4Normal [facility] CampusComment on above:Performed By: #### [id number] #### [facility] ([facility]) [address], [place] [address]YWDPHJUBEZ A1Con 91-03-6333Skfqucf [Mass/Vol]157 mg/dLNoWright-Patterson Medical CenterComment on above:Performed By: #### [id number] #### [facility] ([facility]) [address], [place] [address]NxK9w (Bld) [Mass fraction]7.1 %High4.0-6.0[facility] Main CampusComment on above:Performed By: #### [id number] #### [facility] ([facility]) [address], [place] [address]EMRJF PANELon 38-07-7118FXAA/HDL3.9 mg/dLNormalUniHolzer HospitalComment on above:Performed By: #### [id number] ####[facility] ([facility])[address] [place], [place] [address]Zrnrzrnakyv [Mass/Vol]140 mg/dL Gizyvy472-582UocancrmfsUpper Valley Medical CenterComment on above:Performed By: #### [id number] ####[facility] ([facility])[address] [place] [address] Magnesium [Mass/Vol]211 mg/mZAaer55-974LmwwmaofmpUpper Valley Medical Center Comment on above:Result Comment: TRIGLYCERIDE REFERENCE RANGE: 20 YEARS AND OLDER CARDIOVASCULAR RISK LESS THAN 150 mg/dL LOW RISK 150 TO 199 mg/dL BORDERLINE RISK 200 mg/dL AND GREATER HIGH RISKPerformed By: #### [id number] ####[facility] ([facility])[address] [place], [place] [address]Mnlwjlyqn [Mass/Vol]62 mg/dLNormal 0-160UnUpper Valley Medical CenterComment on above:Performed By: #### [id number] ####[facility] (BEAKER)[address] [place] [address]Exxdkaklj [Mass/Vol]36 mg/bIFjbxvj33-20HfrdigamzrUpper Valley Medical CenterComment on above:Performed By: #### [id number] ####[facility] ([facility])[address] [place] [place] [address]YBL HDL CHOL. (LDL+VLDL)104NormalUniversTrinity Health System West CampusComment on above:Performed By: #### [id number] ####[facility] ([facility])[address]ETH[address] [place] [place] [address]WJLCJ VLDL-C42 mg/dLHigh0-40UnUpper Valley Medical CenterComment on above:Performed By: #### [id number] ####[facility] (BE[facility]ER)[address] [place] [address]Clvap 83-68-0978Mab [id number] Parish Contreras 1955 M Date Provider Department Center 11/05/2024 2245-[facility] OPD LAB RESOURCE [facility] OPD [facility] Family History Problem Relation Age of Onset Heart attack Father Other Sister Heart attack Brother Other Brother Family Status - Relation Status Age at Father Sister BrotherNormalUniHolzer HospitalOffice Visiton [id number]- up [id number] Parish Contreras 1955 M Date Provider Department Center 11/05/2024 [facility] Family History Problem Relation Age of Onset Heart attack Father Other Sister Heart attack Brother Other Brother Family Status - Relation Status Age at Father Sister Brother Level of Service:38452 PA OFFICE/OUTPATIENT ESTABLISHED MOD MDM 30 MIN () Reason for Visit and Comments: HIV infection, unspecified symptom status (CMS/HCC) [Other] Health Maintenance [619] Med Management [[id number]]NormalUnUpper Valley Medical CenterRPRon 86-84-1197OHEKDD AB PRESENCE IN SERUM BY RPRNon-ReactiveNormalNonreactive [facility] CampusComment on above:Performed By: #### [id number] #### [facility] ([facility]) [address] [place] [address]L CELL SUBSET ANALYSISon 79-55-8162GW588.46 %Rxxoow17.00-90.00 [facility] CampusComment on above:Performed By: #### [id number] #### [facility] ([facility]) [address] [place] [address]CD1 WOMEEFUS0700 cells/ac2Asmzhx617-5692QqfvrkcjvhUpper Valley Medical CenterComment on above:Performed By: #### [id number] #### [facility] ([facility]) [address] [place] [address]OB282.42 %Low40.00-70.00UnUpper Valley Medical Center Comment on above:Performed By: #### [id number] #### [facility] ([facility]) [address] [place] [address]KS1 ZFBUVNUQ020 cells/eo5Msjtej033-3378YcuxzpgaahUpper Valley Medical CenterComment on above:Performed By: #### [id number] #### [facility] ([facility]) [address] [place] [address]OP0:CD80.80Low1.00-4.00UnUpper Valley Medical Center Comment on above:Performed By: #### [id number] #### [facility] ([facility]) [address] [place] [address]OK968.93 %Dtpjfe45.00-40.00UnUpper Valley Medical Center Comment on above:Performed By: #### [id number] #### [facility] ([facility]) [address] [place] [address]RT1 CGWGOQCF507 cells/wk5Pmgwzv544-798UmpikqddzyUpper Valley Medical CenterComment on above:Performed By: #### [id number] #### [facility] ([facility]) [address] [place] [address]Pizyde Visiton 52-08-0480Xwqedu-up [id number] Parish Contreras Robert 1955 M Date Provider Department Center 10/29/2024 04645-MDPACZTWIN GUILLEN BO Perez Allison Family History Problem Relation Age of Onset Heart attack Father Other Sister Heart attack Brother Other Brother Family Status - Relation Status Age at Father Sister Brother Level of Service:27626 PA OFFICE/OUTPATIENT ESTABLISHED MOD MDM 30 MIN Reason for Visit and Comments: Atrial Fibrillation [80] - Denies bleeding on Eliquis. Coronary Artery Disease [187] Hyperlipidemia [182] Congestive Heart Failure [127] - Had echo and labs in Apr 2024. Shortness of Breath [] - He states this remains unchanged from last apt in March 2024. Palpitations [] - Feels palpitations/irregular beats sometimes at rest after some exertion.UC HealthRefillon [id number] BenParish Jones 1955 M Date Provider Department Center 10/21/2024 [facility] Family History Problem Relation Age of Onset Heart attack Father Other Sister Heart attack Brother Other Brother Family Status - Relation Status Age at Father Sister Brother Reason for Visit and Comments: Med Refill [[id number]][facility]on Called Dr. Sheets office and spoke with a nurse. Informed her that patient's daughter called us and reported that Dr. Sheets wanted to increase Lyrica to 100 mg BID. Patient wants to get script at [facility] and Dr. Lucero would need to write the prescription. Requested that they fax us Dr. Sheets's note indicating the increase in Lyrica. Since Lyrica is controlled, wanted to make sure they want us to prescribe so that patient not getting prescriptions from 2 physicians. She will fax the note after speaking with Dr. [facility]36on [id number] saw Dr. Sheets on 09/11/2024 and Lyrica was increased to 100mg BID. Patient would like for you to send the Lyrica 100 mg BID to the [facility]. [facility] HealthOrders Onlyon 30-45-2962Haqdiu Only [id number] Parish Contreras Robert 1955 M Date Provider Department Center 10/17/2024 [facility] HANDU [facility] Family History Problem Relation Age of Onset Heart attack Father Other Sister Heart attack Brother Other Brother Family Status - Relation Status Age at Father Sister BrotherNormalUniHolzer HospitalRefformerly [facility] [id number] [id number] Parish Contreras Robert 1955 M Date Provider Department Center 09/23/2024 281-SNEHA LUCEROIU [facility] Family History Problem Relation Age of Onset Heart attack Father Other Sister Heart attack Brother Other Brother Family Status - Relation Status Age at Father Sister Brother Reason for Visit and Comments: Med Refill [[id number]][facility] HealthRefformerly [facility] 08-26-2024 [id number] Grover Contrerassheela Jones 1955 M Date Provider Department Center 08/26/2024 281-SNEHA LUCEROIU [facility] Family History Problem Relation Age of Onset Heart attack Father Other Sister Heart attack Brother Other Brother Family Status - Relation Status Age at Father Sister Brother Reason for Visit and Comments: Med Refill [[id number]][facility] 07-24-2024 [id number] Grover Contrerassheela Jones 1955 M Date Provider Department Center 07/24/2024 281-SNEHA LUCEROIU [facility] Family History Problem Relation Age of Onset Heart attack Father Other Sister Heart attack Brother Other Brother Family Status - Relation Status Age at Father Sister Brother Reason for Visit and Comments: Med Refill [[id number]][facility] HealthCA 19-9on 09-15-2022 CA 19-918 U/mLNormal0-35Marion HospitalComment on above:Result Comment: [employer] Electrochemiluminescence Immunoassay (ECLIA) . Values obtained with different assay methods or kits cannot be used interchangeably. Results cannot be interpreted as absolute evidence of the presence or absence of malignant disease.Performed By: #### CA 19,9 ####[facility] [address] [place] [address] [address] Jose Adamson 16-60-2809RHV2.8 ng/mLNormal0.0-4.7The [facility] Comment on above:Result Comment: Nonsmokers <3.9 Smokers <5.6 . [employer] Electrochemiluminescence Immunoassay (ECLIA) . Values obtained with different assay methods or kits cannot be used interchangeably. Results cannot be interpreted as absolute evidence of the presence or absence of malignant disease.Performed By: #### HPYLLC #### [facility] Laboratory [address] [place] [address] Dr. Jose Duggan PYLORI ANTIBODY IGGon 09-15-2022H. PYLORI IGG ABS0.23 Index ValueNormal0.00-0.79The [facility] Medical CenterComment on above:Result Comment: Negative <0.80 Equivocal 0.80 - 0.89 Positive >0.89Performed By: #### HPYLLC #### [facility] [address] [place] [address] Dr. Jose GonsalesAMMONIAon 41-10-5732Fpvljvy (P) [Moles/Vol]13 umol/EVfhhks18-56 The [facility] CenterComment on above:Performed By: #### PTTHEP #### [facility] [address] [place] [address] Dr. Jose GonsalesAMYLASEon 45-10-3945Fmfuicj [Catalytic activity/Vol]47 U/LNormal 25-115Mar[facility] HospitalComment on above:Performed By: #### PTTHEP #### [facility] [address] [place] [address] Dr. Jose Marmolejo AUTO DIFFon 38-66-1025NWKE #0.0 103/ulNormal0.0-0.1The [facility] CenterComment on above:Performed By: #### CBC ####[facility] Roi[address] [place], [place] [address]Dr.Yilan ChangBasophils/100 WBC (Bld)0.2 %Normal0.2-2.0The [facility] CenterComment on above:Performed By: #### CBC ####[facility] Q[address]vas[address] [place], [place] [address]Dr.Dorindalan ChangEO #0.2 103/ulNormal0.0-0.7The [facility] CenterComment on above:Performed By: #### CBC ####[facility] [address]zg[address]exr[address] [place], [place] [address]Dr.Jose ChangEosinophils/100 WBC (Bld)3.4 %Normal 0.9-7.0The [facility] Medical CenterComment on above:Performed By: #### CBC ####[facility] Qstf[address]iv[address] [place], [place] [address]Dr.Dorindaedward Gonsales Erythrocyte distribution width (RBC) [Ratio]13.7 %Ymzopc46.0-15.0The [facility] CenterComment on above:Performed By: #### CBC ####[facility] Lafhqzph[address] [place], [place] [address]Dr.Dorindaedward ChangHematocrit (Bld) [Volume fraction]44.0 %Gwgoix38.0-54.0The [facility] CenterComment on above:Performed By: #### CBC ####[facility] V[address] [place], [place] [address]Dr.Dorindaedward ChangHemoglobin (Bld) [Mass/Vol]14.4 g/dL Rayjzo55.0-18.0The [facility] CenterComment on above:Performed By: #### CBC ####[facility] [address] [place], [place] [address]Dr. Dorindaedward ChangIG #0.01 10e3/ulNormal0.00-0.03The [facility] CenterComment on above: Performed By: #### CBC ####[facility] Curvgnydmw[address] [place], [place] [address]Dr.Dorindalan ChangIG %0.2 %Normal0.0-0.5The [facility] CenterComment on above:Performed By: #### CBC ####[facility] [address] [place] [address]Dr.Jose GonsalesLYMPH #1.4 103/ulNormal1.2-3.8The [facility] CenterComment on above:Performed By: #### CBC ####[facility] Y[address]ic[address]frx[address] [place], [place] [address]Dr. Jose GonsalesLymphocytes/100 WBC (Bld)31.6 %Ixajtz51.5-60.0The [facility] Comment on above:Performed By: #### CBC ####[facility] Xeyisewxsc[address] [place], [place] [address]Dr.Jose GonsalesMANUAL DIFF REQNONormalThe [facility] CenterComment on above:Performed By: #### CBC ####[facility] C[address]vgloacu[address] [place], [place] [address]Dr.Jose GonsalesMCH (RBC) [Entitic mass]29.8 dhYyppdk97.9-34.0The [facility] CenterComment on above: Performed By: #### CBC ####[facility] [address] [place], [place] [address]Dr.Jose GonsalesMCHC (RBC) [Mass/Vol]32.7 g/dLNormal 29.9-35.2The [facility] CenterComment on above:Performed By: #### CBC ####[facility] [address]ps[address] [place], [place] [address]Dr. Jose GonsalesMCV (RBC) [Entitic vol]91.1 sCKwpwbm76.0-94.0The [facility] Comment on above:Performed By: #### CBC ####[facility] Jxeklbstlx[address] [place], [place] [address]Dr.Jose GonsalesMONO #0.4 103/ulNormal0.3-0.8 The [facility] CenterComment on above:Performed By: #### CBC ####[facility] V[address]ent[address] [place], [place] [address]Dr.Jose Gonsales Monocytes/100 WBC (Bld)8.4 %Normal1.7-12.0The [facility] CenterComment on above: Performed By: #### CBC ####[facility] [address] [place] [address]Dr.Yilan ChangNEUT #2.5 103/ulNormal1.4-6.5The [facility] Hospitalment on above:Performed By: #### CBC ####[facility] [address] [place] [address]Dr.Yilan ChangNeutrophils/100 WBC (Bld)56.2 %Tonywo63.0-75.0The [facility] CenterComment on above:Performed By: #### CBC ####[facility] [address] [place] [address]Dr.Yilan ChangPlatelet mean volume (Bld) [Entitic vol]10.4 fLNormal9.5-13.5 The [facility] CenterComment on above:Performed By: #### CBC ####[facility] Mngrdem[address] [place], [place] [address]Dr.Yilan DfdycXXC640 103/ulCritically tms481-218Kac [facility] CenterComment on above:Performed By: #### CBC ####[facility] [address]au[address]emx[address] [place], [place] [address]Dr.Yilan ChangRBC4.83 106/ulNormal4.70-6.10The [facility] on above:Performed By: #### CBC ####[facility] [address]scpocqk[address] [place], [place] [address]Dr.Yilan ChangWBC4.4 103/ulNormal4.0-11.0The [facility] CenterComment on above:Performed By: #### CBC ####[facility] [address]arypfysb[address] [place], [place] [address]Dr.Yilan ChangFREE THYROXINE INDEX T7on 00-65-4502JZL1.51Imhuby4.30-4.50The [facility] on above:Performed By: #### CMP, T7, LIPA, TSH, YFN ####[facility] [address]ax[address] [place], [place] [address]Dr. Yilan LwujqD4Q51.0 % Zxvyfa23.0-40.0The Chris HospitalComment on above:Performed By: #### CMP, T7, LIPA, TSH, YFN ####[facility] [address] [place] [address]Dr. Jose ChangT4 [Mass/Vol]5.30 ug/dLNormal4.50-12.10The [facility] CenterComment on above:Performed By: #### CMP, T7, LIPA, TSH, YFN ####[facility] [address] [place] [address]DrLuci Garcia ChangIRON on 25-45-7958Jiny [Mass/Vol]47.0 ug/dLCritically low65.0-175.0The [facility] CenterComment on above:Performed By: #### PTTHEP #### [facility] Laboratory [address] [place] [address] Dr. Jose GonsalesLIPASEon 72-65-2820Lgatju [Catalytic activity/Vol]182.0 U/LNormal 73.0-393.0The [facility] CenterComment on above:Performed By: #### PTTHEP #### [facility] Laboratory [address] [place] [address] Dr. Jose GonsalesPROF 14(COMP METB)on 28-97-2240Jfihqns [Mass/Vol]3.5 g/dLNormal 3.4-5.0The [facility] CenterComment on above:Performed By: #### CMP, T7, LIPA, TSH, YFN ####[facility] [address] [place] [address]Dr. Jose ChangAlbumin/Globulin [Mass ratio]0.9 {ratio}NormalThe [facility] CenterComment on above:Performed By: #### CMP, T7, LIPA, TSH, YFN ####[facility] Q[address]eb[address] [place], [place] [address]Dr. Jose ChangALP [Catalytic activity/Vol]64 U/IFnqguq68-590Iog [facility] CenterComment on above: Performed By: #### CMP, T7, LIPA, TSH, YFN ####[facility] [address]ngjflee[address] [place], [place] [address]Dr. Yilan ChangALT [Catalytic activity/Vol] 16 U/SLaikyg53-13Ead [facility] CenterComment on above:Performed By: #### CMP, T7, LIPA, TSH, YFN ####[facility] [address] [place] [address]Dr. Yilan ChangAnion gap [Moles/Vol]9.6 mmol/LNormalThe [facility] CenterComment on above:Performed By: #### CMP, T7, LIPA, TSH, YFN ####[facility] [address] [place], [place] [address]Dr. Yilan ChangAST [Catalytic activity/Vol]16 U/NTqxeaa76-15Jgu [facility] Comment on above:Performed By: #### CMP, T7, LIPA, TSH, YFN ####[facility] [address] [place] [address]Dr. Yilan Gonsales Bilirubin [Mass/Vol]0.3 mg/dLNormal0.2-1.0The [facility] CenterComment on above: Performed By: #### CMP, T7, LIPA, TSH, YFN ####[facility] R[address]ctmhjee[address] [place], [place] [address]Dr. Yilan ChangCalcium [Mass/Vol]9.3 mg/dL Normal8.5-10.1The [facility] CenterComment on above:Performed By: #### CMP, T7, LIPA, TSH, YFN ####[facility] [address] [place] [address]Dr. Yilan ChangChloride [Moles/Vol]104 mmol/UCgdlwn92-418Mim [facility] CenterComment on above:Performed By: #### CMP, T7, LIPA, TSH, YFN ####[facility] [address] [place], [place] [address]Dr. Yilan ChangCO2 [Moles/Vol]28.9 mmol/ZWwvcga75.0-32.0The [facility] CenterComment on above: Performed By: #### CMP, T7, LIPA, TSH, YFN ####[facility] Q[address]th[address]fwj[address] [place], [place] [address]Dr. Yilan ChangCreatinine [Mass/Vol]1.96 mg/dLCritically high0.70-1.30The [facility] CenterComment on above:Performed By: #### CMP, T7, LIPA, TSH, YFN ####[facility] [address] [place] [address]Dr. Dorindalan ChangEGFR-AF FOFYRZEH86 mL/min/1.73m2 Critically low>=60The [facility] CenterComment on above:Performed By: #### CMP, T7, LIPA, TSH, YFN ####[facility] [address] [place] [address]Dr. Yilan ChangEGFR-NON AF XJZUSZXW67 mL/min/1.67y2Krbeswbuub low>=60The [facility] CenterComment on above:Performed By: #### CMP, T7, LIPA, TSH, YFN ####[facility] [address]hqwyphs[address] [place], [place] [address]Dr. Jose GonsalesGlobulin (S) [Mass/Vol]3.7 g/dLNormalThe [facility] Comment on above:Performed By: #### CMP, T7, LIPA, TSH, YFN ####[facility] [address]zd[address] [place], [place] [address]Dr. Jose Gonsales Glucose [Mass/Vol]161 mg/dLCritically izef04-857Fmc [facility] CenterComment on above:Performed By: #### CMP, T7, LIPA, TSH, YFN ####[facility] [address] [place], [place] [address]Dr. Jose ChangPotassium [Moles/Vol]4.5 mmol/LNormal3.5-5.1The [facility] CenterComment on above: Performed By: #### CMP, T7, LIPA, TSH, YFN ####[facility] [address]tsxcvver[address] [place], [place] [address]Dr. Jose ChangProtein [Mass/Vol]7.2 g/dL Normal6.4-8.2The [facility] CenterComment on above:Performed By: #### CMP, T7, LIPA, TSH, YFN ####[facility] [address] [place], [place] [address]Dt. Jose DruSodium [Moles/Vol]138 mmol/TXfonou734-186Mhr [facility] CenterComment on above:Performed By: #### CMP, T7, LIPA, TSH, YFN ####[facility] [address] [place], [place] [address]Th. Jose ChangUrea nitrogen [Mass/Vol]33.0 mg/dLCritically high7.0-18.0The [facility] Comment on above:Performed By: #### CMP, T7, LIPA, TSH, YFN ####[facility] [address] [place] [address]Dr. Jose ChangUrea nitrogen/Creatinine [Mass ratio]16.8 mg/mgNormalThe [facility] CenterComment on above:Performed By: #### CMP, T7, LIPA, TSH, YFN ####[facility] [address] [place] [address]Dr. Jose GonsalesTSHon 78-02-6280HHQ9.868 uIU/mLNormal0.358-3.740The [facility] CenterComment on above: Performed By: #### CMP, T7, LIPA, TSH, YFN ####[facility] [address] [place] [address]Dr. Jose GonsalesDIGOXINon 52-05-1104URM5.6 ng/mLCritically low0.9-2.0The [facility] Medical CenterComment on above:Performed By: #### DIG #### [facility] Laboratory [address] [address] [address] Jose GonsalesCardiovascular Lab Reporton [id number] Lab Report [facility] Patient Name: Parish Contreras [facility] MR #: [id number] Physician: Eleno Ruvalcaba of [facility] Medicine Service Date: 04/05/2022 Division of Birthdate: 1955 Cardiology Room #: Adult Cardiovascular Services [address] [place] [address] Cardiovascular Laboratory Report INDICATION: The patient is [...] signed the consent. 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 The right groin area was prepped and draped in usual fashion. Micropuncture technique and ultrasound guidance were used for access in the right common femoral artery. Inner cannula angiography was performed, followed by upsizing to the 5-Belizean x 11 cm sheath. Access was obtained using same technique in the right common femoral vein and a 6-Belizean x 11 cm sheath was placed. A 6-Belizean Miller catheter was used to right heart catheterization with measurement pressures of and calculation of cardiac output using the estimated [place] method Miller catheter was removed. Bilateral selective coronary angiography was then performed using 5-Belizean JL4 and JR4 diagnostic catheters. The JR4 diagnostic catheter was used to selectively engage the radial graft to the obtuse marginal branch #1, angiography was performed. The catheter was used to selectively engage the saphenous venous graft to the diagonal branch, angiography was performed. The catheter was exchanged to a 5-Belizean AR modified diagnostic catheter, which was used to selectively engage the saphenous venous graft to the PDA, angiography was performed. A 5-Belizean FABIANA catheter was used to selectively engage the left subclavian artery and then selectively engage the left internal mammary artery, angiography was performed. Catheter was removed. Procedure was concluded. A 6-Belizean Angio-Seal device was used for hemostasis in [...] Bypass graft angiography. 1. (more content not included)...NormalThe [facility] CBC AUTO DIFFon [id number] #0.0 103/ulNormal0.0-0.1The [facility] Comment on above:Performed By: #### HPYLLC #### [facility] Laboratory [address] [place] [address] Dr. Jose Prabhakarsophils/100 WBC (Bld)0.2 %Normal0.2-2.0The [facility] Comment on above:Performed By: #### HPYLLC #### [facility] [address] [place] [address] Dr. Jose Forman #0.1 103/ulNormal0.0-0.7The [facility] CenterComment on above: Performed By: #### HPYLLC #### [facility] [address] [place] [address] Dr. Jose Minaosinophils/100 WBC (Bld)2.2 %Normal0.9-7.0The [facility] Comment on above:Performed By: #### HPYLLC #### [facility] [address] [place] [address] Dr. Jose Minarythrocyte distribution width (RBC) [Ratio]12.8 %Nvvlyf48.0-15.0 The [facility] CenterComment on above:Performed By: #### HPYLLC #### [facility] [address] [place] [address] Dr. Jose GonsalesHematocrit (Bld) [Volume fraction]44.5 %Ootmsu69.0-54.0The [facility] CenterComment on above:Performed By: #### HPYLLC #### [facility] [address] [place] [address] Dr. Jose GonsalesHemoglobin (Bld) [Mass/Vol]14.5 g/uIYetrxk98.0-18.0The [facility] CenterComment on above:Performed By: #### HPYLLC #### [facility] [address] [place] [address] Dr. Jose Rajan #0.01 10e3/ulNormal0.00-0.03The [facility] CenterComment on above:Performed By: #### HPYLLC #### [facility] [address] [place] [address] Dr. Jose Rajan %0.2 %Normal0.0-0.5The [facility] CenterComment on above: Performed By: #### HPYLLC #### [facility] [address] [address] [address] Jose Heller #1.8 103/ulNormal1.2-3.8The [facility] CenterComment on above:Performed By: #### HPYLLC #### [facility] [address] [address] [address] Jose Floresmphocytes/100 WBC (Bld)31.8 %Dwerqw59.5-60.0The [facility] HospitalComment on above:Performed By: #### HPYLLC #### [facility] [address] [place] [address] Dr. Jose DurbinUAL DIFF REQNONormalThe [facility] CenterComment on above: Performed By: #### HPYLLC #### [facility] [address] [place] [address] Dr. Jose Michelle (RBC) [Entitic mass]30.6 zcBiocce92.9-34.0The [facility] CenterComment on above:Performed By: #### HPYLLC #### [facility] [address] [place] [address] Dr. Jose Michelle (RBC) [Mass/Vol]32.6 g/nXUaamie83.9-35.2The [facility] CenterComment on above:Performed By: #### HPYLLC #### [facility] [address] [place] [address] Dr. Jose Michelle (RBC) [Entitic vol]93.9 yAPpzrxt95.0-94.0The [facility] CenterComment on above:Performed By: #### HPYLLC #### [facility] [address] [place] [address] Dr. Jose Morales #0.5 103/ulNormal0.3-0.8The [facility] CenterComment on above:Performed By: #### HPYLLC #### [facility] [address] [place] [address] Dr. Jose Clarkeocytes/100 WBC (Bld)8.5 %Normal1.7-12.0The [facility] Comment on above:Performed By: #### HPYLLC #### [facility] [address] [place] [address] Dr. Jose Gleason #3.3 103/ulNormal1.4-6.5The [facility] CenterComment on above:Performed By: #### HPYLLC #### [facility] [address] [place] [address] Dr. Jose Wheelerutrophils/100 WBC (Bld)57.1 %Obgftk68.0-75.0The [facility] CenterComment on above:Performed By: #### HPYLLC #### [facility] [address] [place] [address] Dr. Jose GonsalesPlatelet mean volume (Bld) [Entitic vol]10.1 fLNormal9.5-13.5The [facility] CenterComment on above:Performed By: #### HPYLLC #### [facility] [address] [place] [address] Dr. Jose GonsalesPLT150 103/hnOzqqqz333-446Cxk [facility] CenterComment on above: Performed By: #### HPYLLC #### [facility] [address] [place] [address] Dr. Jose GonsalesRBC4.74 106/ulNormal4.70-6.10The [facility] CenterComment on above:Performed By: #### HPYLLC #### [facility] [address] [place] [address] Dr. Jose GonsalesWBC5.8 103/ulNormal4.0-11.0The [facility] CenterComment on above: Performed By: #### HPYLLC #### [facility] [address] [place] [address] Dr. Jose Dunaway-19 PCR (CVDTBH)on 99-87-0619TDMN-CoV-2 (COVID-19) RNA JORDON+probe Ql (Unsp spec)Not detectedNormalNOT DETECTEDThe [facility] Comment on above:Result Comment: This test is not yet approved or cleared by the [place] FDA. When there are no FDA-approved or cleared tests available, and other criteria are met, FDA can make tests available under an emergency access mechanism called an Emergency Use Authorization (EUA). The EUA for this test is supported by the Radio Director of Health and Human Service's (HHS's) declaration that circumstances exist to justify the emergency use of in vitro diagnostics for the detection and/or diagnosis of the virus that causes COVID- 19. This EUA will remain in effect (meaning [...] of clinical signs and symptoms consistent with SARS-CoV-2.Performed By: #### CVDTBH ####[facility] [address] [address]. Jose GonsalesPROF CHEM 8 (BAS METB)on 94-51-2503Eqbpa gap [Moles/Vol]14.0 mmol/LNormalMarion HospitalComment on above:Performed By: #### PTTHEP #### [facility] [address] [address] [address] Jose GonsalesCalcium [Mass/Vol]9.3 mg/dLNormal8.5-10.1[facility] Comment on above:Performed By: #### PTTHEP #### [facility] [address] [place] [address] Dr. Jose GonsalesChloride [Moles/Vol]106 mmol/AWfkfsj67-933AknMarion Hospital Comment on above:Performed By: #### PTTHEP #### [facility] [address] [address] [address] Jose GonsalesCO2 [Moles/Vol]22.7 mmol/CKljjbe67.0-32.0[facility] Comment on above:Performed By: #### PTTHEP #### [facility] [address] [place] [address] Dr. Jose GonsalesCreatinine [Mass/Vol]2.22 mg/dLCritically high0.70-1.30The [facility] CenterComment on above:Performed By: #### PTTHEP #### [facility] [address] [place] [address] Dr. Jose MinaGFR-AF PWNWSBCX01 mL/min/1.85p9Hnidrfeifa low>=60The [facility] CenterComment on above:Performed By: #### PTTHEP #### [facility] [address] [place] [address] Dr. Jose MinaGFR-NON AF HQNCMAGN94 mL/min/1.18r0Gfykwqgfsb low>=60The [facility] CenterComment on above:Performed By: #### PTTHEP #### [facility] [address] [place] [address] Dr. Jose GonsalesGlucose [Mass/Vol]121 mg/dLCritically xkhb11-660Aib [facility] CenterComment on above:Performed By: #### PTTHEP #### [facility] [address] [place] [address] Dr. Jose GonsalesPotassium [Moles/Vol]4.7 mmol/LNormal3.5-5.1The [facility] Comment on above:Performed By: #### PTTHEP #### [facility] [address] [place] [address] Dr. Jose Aldridgedium [Moles/Vol]138 mmol/RPqpcwb727-992Yiz [facility] Comment on above:Performed By: #### PTTHEP #### [facility] [address] [place] [address] Dr. Jose GonsalesUrea nitrogen [Mass/Vol]38.0 mg/dLCritically high7.0-18.0The [facility] CenterComment on above:Performed By: #### PTTHEP #### [facility] [address] [place] [address] Dr. Jose GonsalesUrea nitrogen/Creatinine [Mass ratio]17.1 mg/mgNormalThe [facility] CenterComment on above:Performed By: #### PTTHEP #### [facility] [address] [place] [address] Dr. Jose GonsalesNM STRESS/REST MULTIon 90-58-9760BM STRESS/REST MULTIPatient: PARISH CONTRERASLuci Exam Date: 03/21/2022 : 1955 Gender:M Ordering : DR ELENO JENKINS M.D. Admission #: [id number] Family : JONAS SHEETS . Order #: [id number] CLICK HERE TO VIEW EXAM RADIOLOGY REPORT [...] study was normal per attending physician Dr. Jenkins . For more details please see separate cardiac stress test report. FINDINGS: QUALITY OF STUDY: Good. PERFUSION DEFECT: LOCATION: Mid-anterior. Apical anterior. [place]. SIZE: Medium (3-4 segments). SEVERITY: Severe. TYPE: Mixed. WALL MOTION: Severe hypokinesis: Mid-anterior. Apical anterior. [place]anaway. LV SIZE: Enlarged; EDV 157 mL. TID [...] by: Brian Pate MD on 03/22/2022 at 07:09[facility] DIGOXINon 05-33-4357IAR7.1 ng/mLNormal0.8-2.0The [facility] CenterComment on above:Performed By: #### PTTHEP #### [facility] [address] [address] [address] Jose McGOXINvioletta 88-97-4965KCW6.1 ng/mLNormal0.8-2.0The [facility] CenterComment on above:Performed By: #### PTTHEP #### [facility] [address] [place] [address] Dr. Jose Sharpe 97-79-9417Nsgawbpygbs peptide B (Bld) [Mass/Vol]353.0 pg/mL Normal<=900.0The [facility] CenterComment on above:Performed By: #### PT #### [facility] [address] [place] [address] Dr. Jose Nava CHESTER ADMITon 50-02-1455LF [Catalytic activity/Vol]122 U/L Vbhuio09-233Wkp [facility] on above:Performed By: #### PT #### [facility] [address] [place] [address] Dr. Jose Orlando.MB [Mass/Vol]0.94 ng/mLNormal<=2.37The [facility] Comment on above:Performed By: #### PT #### [facility] [address] [place] [address] Dr. Jose VillelaTROP208.6 pg/mLCritically high4.0-42.2The [facility] Comment on above:Result Comment: CUT-OFF POINTS HAVE BEEN ESTABLISHED BASED ON THE FOURTH UNIVERSAL DEFINITIONS OF MYOCARDIAL INFARCTION. THE UPPER REFERENCE LIMIT (URL) OF TROPONIN, DEFINED THE 99TH PERCENTILE OF cTnI DISTRIBUTION IN A REFERENCE POPULATION, HAS BEEN CONFIRMED THE DECISION THRESHOLD FOR OH DIAGNOSIS.Performed By: #### PT #### [facility] [address] [place] [address] Dr. Jose RicksO96.0 ng/mLNormal<=121.0The [facility] CenterComment on above: Performed By: #### PT #### [facility] [address] [place] [address] Dr. Jose Marmolejo AUTO DIFFon 65-65-5014PZYN #0.0 103/ulNormal0.0-0.1The [facility] HospitalComment on above:Performed By: #### HPYLLC #### [facility] [address] [place] [address] Dr. Jose GonsalesBasophils/100 WBC (Bld)0.3 %Normal0.2-2.0The [facility] Comment on above:Performed By: #### HPYLLC #### [facility] [address] [place] [address] Dr. Jose Forman #0.1 103/ulNormal0.0-0.7The [facility] CenterComment on above: Performed By: #### HPYLLC #### [facility] [address] [place] [address] Dr. Jose Minaosinophils/100 WBC (Bld)1.9 %Normal0.9-7.0The [facility] Comment on above:Performed By: #### HPYLLC #### [facility] [address] [place] [address] Dr. Jose Minarythrocyte distribution width (RBC) [Ratio]12.9 %Ferygw72.0-15.0 The [facility] CenterComment on above:Performed By: #### HPYLLC #### [facility] [address] [place] [address] Dr. Jose GonsalesHematocrit (Bld) [Volume fraction]45.6 %Xxyyha91.0-54.0Marion HospitalComment on above:Performed By: #### HPYLLC #### [facility] [address] [place] [address] Dr. Jose GonsalesHemoglobin (Bld) [Mass/Vol]15.1 g/zSFfatfk51.0-18.0The [facility] CenterComment on above:Performed By: #### HPYLLC #### [facility] [address] [place] [address] Dr. Jose Rajan #0.02 10e3/ulNormal0.00-0.03The [facility] CenterComment on above:Performed By: #### HPYLLC #### [facility] [address] [place] [address] Dr. Jose Rajan %0.3 %Normal0.0-0.5The [facility] CenterComment on above: Performed By: #### HPYLLC #### [facility] [address] [place] [address] Dr. Jose Heller #2.0 103/ulNormal1.2-3.8The [facility] CenterComment on above:Performed By: #### HPYLLC #### [facility] [address] [place] [address] Dr. Jose Paulinohocytes/100 WBC (Bld)29.5 %Lswgyo85.5-60.0The [facility] CenterComment on above:Performed By: #### HPYLLC #### [facility] [address] [place] [address] Dr. Jose DurbinUAL DIFF REQNONormalThe [facility] CenterComment on above: Performed By: #### HPYLLC #### [facility] [address] [place] [address] Dr. Jose Michelle (RBC) [Entitic mass]31.1 poErnkel09.9-34.0The [facility] CenterComment on above:Performed By: #### HPYLLC #### [facility] [address] [place] [address] Dr. Jose Michelle (RBC) [Mass/Vol]33.1 g/pSRutrvs38.9-35.2The [facility] CenterComment on above:Performed By: #### HPYLLC #### [facility] [address] [place] [address] Dr. Jose Michelle (RBC) [Entitic vol]94.0 xOEkyagq25.0-94.0The [facility] CenterComment on above:Performed By: #### HPYLLC #### [facility] [address] [place] [address] Dr. Jose Morales #0.7 103/ulNormal0.3-0.8The [facility] CenterComment on above:Performed By: #### HPYLLC #### [facility] [address] [place] [address] Dr. Jose Clarkeocytes/100 WBC (Bld)10.4 %Normal1.7-12.0The [facility] Comment on above:Performed By: #### HPYLLC #### [facility] [address] [place] [address] Dr. Jose Gleason #3.9 103/ulNormal1.4-6.5The [facility] CenterComment on above:Performed By: #### HPYLLC #### [facility] [address] [place] [address] Dr. Jose Wheelerutrophils/100 WBC (Bld)57.6 %Htodfu96.0-75.0The [facility] CenterComment on above:Performed By: #### HPYLLC #### [facility] [address] [place] [address] Dr. Jose GonsalesPlatelet mean volume (Bld) [Entitic vol]10.1 fLNormal9.5-13.5The [facility] CenterComment on above:Performed By: #### HPYLLC #### [facility] [address] [place] [address] Dr. Jose GonsalesPLT147 103/ulCritically gqt835-433Jrm [facility] CenterComment on above:Performed By: #### HPYLLC #### [facility] [address] [place] [address] Dr. Jose GonsalesRBC4.85 106/ulNormal4.70-6.10The [facility] CenterComment on above:Performed By: #### HPYLLC #### [facility] [address] [place] [address] Dr. Jose GonsalesWBC6.7 103/ulNormal4.0-11.0The [facility] CenterComment on above: Performed By: #### HPYLLC #### [facility] [address] [place] [address] Dr. Jose Cabrera 31-82-8167MCX4.9 ng/mLNormal0.8-2.0The [facility] CenterComment on above:Performed By: #### HPYLLC #### [facility] [address] [address] [address] Jose GonsalesPOINT OF CARE GLUCOSEon 56-94-5936Vsfunqz [Mass/Vol]152 mg/dL Critically dbzm72-610Qci [facility] CenterComment on above:Performed By: #### HPYLLC #### [facility] [address] [place] [address] Dr. Jose GonsalesPROF 14(COMP METB)on 81-59-3072Cxmgooz [Mass/Vol]3.5 g/dLNormal 3.4-5.0The [facility] CenterComment on above:Performed By: #### PT #### [facility] [address] [place] [address] Dr. Jose GonsalesAlbumin/Globulin [Mass ratio]0.9 {ratio}NormalThe [facility] CenterComment on above:Performed By: #### PT #### [facility] [address] [place] [address] Dr. Jose LynP [Catalytic activity/Vol]57 U/XXkceco11-522Jto [facility] CenterComment on above:Performed By: #### PT #### [facility] [address] [place] [address] Dr. Jose Agarwal [Catalytic activity/Vol]35 U/UMapokn84-12Ygs [facility] CenterComment on above:Performed By: #### PT #### [facility] [address] [place] [address] Dr. Jose Mc gap [Moles/Vol]14.2 mmol/LNormalThe [facility] Comment on above:Performed By: #### PT #### [facility] [address] [place] [address] Dr. Jose Garcia [Catalytic activity/Vol]24 U/VEfvysl20-84Ips [facility] CenterComment on above:Performed By: #### PT #### [facility] [address] [place] [address] Dr. Jose GonsalesBilirubin [Mass/Vol]0.4 mg/dLNormal0.2-1.3TMagruder Hospital Comment on above:Performed By: #### PT #### [facility] [address] [place] [address] Dr. Jose GonsalesCalcium [Mass/Vol]9.1 mg/dLNormal8.5-10.1The [facility] Comment on above:Performed By: #### PT #### [facility] [address] [place] [address] Dr. Jose GonsalesChloride [Moles/Vol]103 mmol/RQudefz94-085Nin [facility] Comment on above:Performed By: #### PT #### [facility] [address] [place] [address] Dr. Jose GonsalesCO2 [Moles/Vol]24.8 mmol/KIkmcuw38.0-30.0[facility] Comment on above:Performed By: #### PT #### [facility] [address] [place] [address] Dr. Jose GonsalesCreatinine [Mass/Vol]1.94 mg/dLCritically high0.66-1.25ThBluffton HospitalComment on above:Performed By: #### PT #### [facility] [address] [place] [address] Dr. Jose MinaGFR-AF PXLDCDZT11 mL/min/1.03b2Hzjmoifkyv low>=60The [facility] CenterComment on above:Performed By: #### PT #### [facility] [facility] [address] [place] [address] Dr. Jose MinaGFR-NON AF GFGMKZHI98 mL/min/1.12q9Prczhqeocz low>=60The [facility] CenterComment on above:Performed By: #### PT #### [facility] [address] [place] [address] Dr. Jose GonsalesGlobulin (S) [Mass/Vol]3.9 g/dLNormalThBluffton HospitalComment on above:Performed By: #### PT #### [facility] [address] [place] [address] Dr. Jose GonsalesGlucose [Mass/Vol]125 mg/dLCritically vxih28-681Git [facility] CenterComment on above:Performed By: #### PT #### [facility] [address] [address] [address] Jose GonsalesPotassium [Moles/Vol]5.0 mmol/LNormal3.4-5.0The [facility] Comment on above:Performed By: #### PT #### [facility] [address] [address] [address] Jose GonsalesProtein [Mass/Vol]7.4 g/dLNormal6.1-8.2The [facility] Comment on above:Performed By: #### PT #### [facility] [address] [address] [address] Jose GonsalesSodium [Moles/Vol]137 mmol/JQuqwtm662-282Nrh [facility] Comment on above:Performed By: #### PT #### [facility] [address] [address] [address] Jose GonsalesUrea nitrogen [Mass/Vol]37.0 mg/dLCritically high7.0-18.0The [facility] CenterComment on above:Performed By: #### PT #### [facility] [address] [address] [address] Jose Marin nitrogen/Creatinine [Mass ratio]19.1 mg/mgNormalThe [facility] CenterComment on above:Performed By: #### PT #### [facility] [address] [address] [address] Jose GonsalesPTT HEPARIN MONITORon 70-34-3974dSYG Coag (Bld) [Time]27.3 s Critically low39.5-54.2The [facility] CenterComment on above:Performed By: #### PTTHEP ####[facility] [address] [address]Dr. Jose GonsalesT3, TOTAL (TRIIODOTHYRONINE)on 42-40-1069I1, TOTAL95 ng/dL Eoazmb55-432Yxf [facility] CenterComment on above:Performed By: #### PT #### [facility] [address] [address] [address] Jose Sharpe 69-92-3096Zdglpeucooy peptide B (Bld) [Mass/Vol]781.0 pg/mL Normal<=900.0The [facility] CenterComment on above:Performed By: #### BNP, CMP ####[facility] [address] [address]Dr. Jose Nava CHESTER 3-6on 98-74-4585MG [Catalytic activity/Vol]331 U/L Critically yvha91-258Dgb [facility] CenterComment on above:Result Comment: test repeatedPerformed By: #### PT #### [facility] [address] [place] [address] Dr. Jose Orlando.MB [Mass/Vol]2.24 ng/mLNormal<=2.37[facility] Comment on above:Performed By: #### PT #### [facility] [address] [place] [address] Dr. Jose Gutiérrez430.1 pg/mLCritically high4.0-42.2[facility] Comment on above:Result Comment: CUT-OFF POINTS HAVE BEEN ESTABLISHED BASED ON THE FOURTH UNIVERSAL DEFINITIONS OF MYOCARDIAL INFARCTION. THE UPPER REFERENCE LIMIT (URL) OF TROPONIN, DEFINED THE 99TH PERCENTILE OF cTnI DISTRIBUTION IN A REFERENCE POPULATION, HAS BEEN CONFIRMED THE DECISION THRESHOLD FOR [place] DIAGNOSIS. test repeatedPerformed By: #### PT #### [facility] [address] [place] [address] Dr. Jose Orlando [Catalytic activity/Vol]320 U/LCritically tnuz40-141AszMarion HospitalComascension macomb on above:Result Comment: test repeatedPerformed By: #### PT #### [facility] [address] [place] [address] Dr. Jose Orlando.MB [Mass/Vol]2.32 ng/mLNormal<=2.37[facility] Comment on above:Performed By: #### PT #### [facility] [address] [place] [address] Dr. Yilan LzxduBRAORC527.8 pg/mLCritically high4.0-42.2[facility] Comment on above:Result Comment: CUT-OFF POINTS HAVE BEEN ESTABLISHED BASED ON THE FOURTH UNIVERSAL DEFINITIONS OF MYOCARDIAL INFARCTION. THE UPPER REFERENCE LIMIT (URL) OF TROPONIN, DEFINED THE 99TH PERCENTILE OF cTnI DISTRIBUTION IN A REFERENCE POPULATION, HAS BEEN CONFIRMED THE DECISION THRESHOLD FOR [place] DIAGNOSIS. test repeatedPerformed By: #### PT #### [facility] [address] [place] [address] Dr. Jose Marmolejo AUTO DIFFon 17-23-8762GHRQ #0.0 103/ulNormal0.0-0.1The [facility] CenterComment on above:Performed By: #### CBC #### [facility] [address] [place] [address] Dr. Jose GonsalesBasophils/100 WBC (Bld)0.1 %Critically low0.2-2.0The [facility] CenterComment on above:Performed By: #### CBC #### [facility] [address] [place] [address] Dr. Jose Forman #0.0 103/ulNormal0.0-0.7The [facility] CenterComment on above: Performed By: #### CBC #### [facility] [address] [place] [address] Dr. Jose Minaosinophils/100 WBC (Bld)0.1 %Critically low0.9-7.0[facility] HospitalComment on above:Performed By: #### CBC #### [facility] [address] [place] [address] Dr. Jose Minarythrocyte distribution width (RBC) [Ratio]12.9 %Hwylhw72.0-15.0 The [facility] CenterComment on above:Performed By: #### CBC #### [facility] [address] [place] [address] Dr. Jose GonsalesHematocrit (Bld) [Volume fraction]43.4 %Yudvwi63.0-54.0The [facility] CenterComment on above:Performed By: #### CBC #### [facility] [address] [address] [address] Jose GonsalesHemoglobin (Bld) [Mass/Vol]14.7 g/eVTmibmz37.0-18.0The [facility] CenterComment on above:Performed By: #### CBC #### [facility] [address] [address] [address] Jose Rajan #0.03 10e3/ulNormal0.00-0.03The [facility] CenterComment on above:Performed By: #### CBC #### [facility] [address] [place] [address] Dr. Jose Rajan %0.4 %Normal0.0-0.5The [facility] CenterComment on above: Performed By: #### CBC #### [facility] [address] [place] [address] Dr. Jose Heller #0.9 103/ulCritically low1.2-3.8The [facility] Comment on above:Performed By: #### CBC #### [facility] [address] [place] [address] Dr. Jose Paulinohocytes/100 WBC (Bld)13.9 %Critically low20.5-60.0The [facility] CenterComment on above:Performed By: #### CBC #### [facility] [address] [place] [address] Dr. Jose DurbinUAL DIFF REQNONormalThe [facility] CenterComment on above: Performed By: #### CBC #### [facility] [address] [place] [address] Dr. Jose Michelle (RBC) [Entitic mass]31.1 zjGjsomq17.9-34.0The [facility] CenterComment on above:Performed By: #### CBC #### [facility] [address] [place] [address] Dr. Jose Michelle (RBC) [Mass/Vol]33.9 g/xGSkdxso06.9-35.2The [facility] CenterComment on above:Performed By: #### CBC #### [facility] [address] [address] [address] Jose MichelleV (RBC) [Entitic vol]91.8 pSKetbjm79.0-94.0The [facility] CenterComment on above:Performed By: #### CBC #### [facility] [address] [place] [address] Dr. Jose Morales #0.5 103/ulNormal0.3-0.8The [facility] CenterComment on above:Performed By: #### CBC #### [facility] [address] [place] [address] Dr. Jose Clarkeocytes/100 WBC (Bld)7.0 %Normal1.7-12.0The [facility] Comment on above:Performed By: #### CBC #### [facility] [address] [place] [address] Dr. Jose Gleason #5.3 103/ulNormal1.4-6.5The [facility] CenterComment on above:Performed By: #### CBC #### [facility] [address] [place] [address] Dr. Jose Wheelerutrophils/100 WBC (Bld)78.5 %Critically high43.0-75.0The [facility] CenterComment on above:Performed By: #### CBC #### [facility] [address] [place] [address] Dr. Jose Whatleylet mean volume (Bld) [Entitic vol]10.1 fLNormal9.5-13.5The [facility] CenterComment on above:Performed By: #### CBC #### [facility] [address] [place] [address] Dr. Jose GonsalesPLT129 103/ulCritically gle977-278Rip [facility] CenterComment on above:Performed By: #### CBC #### [facility] [address] [place] [address] Dr. Jose GonsalesRBC4.73 106/ulNormal4.70-6.10The [facility] CenterComment on above:Performed By: #### CBC #### [facility] [address] [place], [place] [address] Dr. Garcia ChangWBC6.8 103/ulNormal4.0-11.0[facility] HospitalComment on above: Performed By: #### CBC #### [facility] [address] [place], [place] [address] Dr. Garcia ChangECHOCARDIO M/2D COMPLETEon 43-96-0940FRAMCWAQVK M/2D COMPLETE Patient: PARISH CONTRERAS Exam Date: 12/21/2021 : 1955 Gender:M Ordering : DR JONAS SHEETS . Admission #: [id number] Family : Order #: [id number] CLICK HERE TO VIEW EXAM ECHOCARDIOGRAM REPORT [...] Area(A4C): 17.90 cm2 Left Atrium Systolic Volume(A2C): 07962 mm3 Left Atrium Systolic Volume(A4C): 31780 mm3 Mitral Valve Mitral Valve E-Wave Peak Velocity: 80.90 cm/s Mitral Valve E-Wave Peak Velocity: 99.20 cm/s Right Ventricle Aorta AO Root Diam: 3.40 cm Aortic Valve AoV Area (Peak Kwadwo): 3.17 cm2 Peak Velocity(Antegrade Flow): 124.00 cm/s Peak Gradient(Antegrade Flow): 6 mm[Hg] Tricuspid Valve Pulmonic Valve Peak Velocity: 81.40 cm/s Peak Gradient: 3 mm[Hg] Right Atrium Dictated by: Eleno Jenkins M.D. on 12/21/2021 at 13:00 Approved by: Eleno Jenkins M.D. on 12/21/2021 at 13:03[facility] HospitalPOINT [facility] GLUCOSEon 42-77-1226Jsdkadd [Mass/Vol]169 mg/dLCritically lyeb95-321QuvMarion HospitalComment on above:Performed By: #### PTTHEP #### [facility] [address] [place] [address] Dr. Jose GonsalesGlucose [Mass/Vol]128 mg/dLCritically fqzz00-652MepMarion HospitalComment on above:Performed By: #### PT #### [facility] [address] [place] [address] Dr. Jose GonsalesGlucose [Mass/Vol]151 mg/dLCritically rzmb20-328Zkv [facility] CenterComment on above:Performed By: #### PT #### [facility] [address] [place] [address] Dr. Jose GonsalesGlucose [Mass/Vol]136 mg/dLCritically ngob71-314Yri [facility] CenterComment on above:Performed By: #### PTTHEP #### [facility] [address] [place] [address] Dr. Jose UpF 14(COMP METB)on 82-89-0496Kjdpxbr [Mass/Vol]3.3 g/dL Critically low3.4-5.0The [facility] CenterComment on above:Performed By: #### BNP, CMP #### [facility] [address] [place] [address] Dr. Jose GonsalesAlbumin/Globulin [Mass ratio]0.9 {ratio}NormalThe [facility] CenterComment on above:Performed By: #### BNP, CMP #### [facility] [address] [place] [address] Dr. Jose Lei [Catalytic activity/Vol]53 U/ZZltwgp82-989Ywl [facility] CenterComment on above:Performed By: #### BNP, CMP #### [facility] [address] [place] [address] Dr. Jose Agarwal [Catalytic activity/Vol]22 U/YNkkkos12-33Sog [facility] CenterComment on above:Performed By: #### BNP, CMP #### [facility] [address] [place] [address] Dr. Jose Mc gap [Moles/Vol]12.8 mmol/LNormalThe [facility] on above:Performed By: #### BNP, CMP #### [facility] [address] [place] [address] Dr. Jose Garcia [Catalytic activity/Vol]21 U/RXqpfnw60-33Idu [facility] CenterComment on above:Performed By: #### BNP, CMP #### [facility] [address] [place] [address] Dr. Yilan ChangBilirubin [Mass/Vol]0.5 mg/dLNormal0.2-1.3TMagruder Hospital Comment on above:Performed By: #### BNP, CMP #### [facility] [address] [place] [address] Dr. Jose GonsalesCalcium [Mass/Vol]8.7 mg/dLNormal8.5-10.1[facility] Comment on above:Performed By: #### BNP, CMP #### [facility] [address] [address] [address] Jose GonsalesChloride [Moles/Vol]104 mmol/CGtyolt50-871Edv [facility] Comment on above:Performed By: #### BNP, CMP #### [facility] [address] [place] [address] Dr. Jose GonsalesCO2 [Moles/Vol]25.8 mmol/TZghfnb15.0-30.0[facility] Comment on above:Performed By: #### BNP, CMP #### [facility] [address] [place] [address] Dr. Jose GonsalesCreatinine [Mass/Vol]2.02 mg/dLCritically high0.66-1.25ThBluffton HospitalComment on above:Performed By: #### BNP, CMP #### [facility] [address] [place] [address] Dr. Jose MinaGFR-AF AHWTVAYN65 mL/min/1.01x6Zspnboljyg low>=60The [facility] CenterComment on above:Performed By: #### BNP, CMP #### [facility] [address] [place] [address] Dr. Jose MinaGFR-NON AF INWMULQQ14 mL/min/1.27d7Gougwtoyyl low>=60The [facility] CenterComment on above:Performed By: #### BNP, CMP #### [facility] [address] [place] [address] Dr. Jose GonsalesGlobulin (S) [Mass/Vol]3.6 g/dLNormalThe [facility] CenterComment on above:Performed By: #### BNP, CMP #### [facility] [address] [address] [address] Jose GonsalesGlucose [Mass/Vol]170 mg/dLCritically glub56-375Qib [facility] CenterComment on above:Performed By: #### BNP, CMP #### [facility] [address] [address] [address] Jose GonsalesPotassium [Moles/Vol]4.6 mmol/LNormal3.4-5.0The [facility] Comment on above:Performed By: #### BNP, CMP #### [facility] [address] [place] [address] Dr. Jose GonsalesProtein [Mass/Vol]6.9 g/dLNormal6.1-8.2The [facility] Comment on above:Performed By: #### BNP, CMP #### [facility] [address] [place] [address] Dr. Jose GonsalesSodium [Moles/Vol]138 mmol/JDhrlxq196-189Jay [facility] Comment on above:Performed By: #### BNP, CMP #### [facility] [address] [place] [address] Dr. Jose GonsalesUrea nitrogen [Mass/Vol]40.0 mg/dLCritically high7.0-18.0The [facility] CenterComment on above:Performed By: #### BNP, CMP #### [facility] [address] [place] [address] Dr. Jose Marin nitrogen/Creatinine [Mass ratio]19.8 mg/mgNoSt. Vincent HospitalComment on above:Performed By: #### BNP, CMP #### [facility] [address] [place] [address] Dr. Jose GonsalesPROTIMEon 48-23-9429TEZ Coag (PPP) [Relative time]1.08 {INR} NormalThe [facility] CenterComment on above:Performed By: #### PT #### [facility] [address] [place] [address] Dr. Jose Anne GUIDELINESSEE BELOWMary Rutan HospitalComment on above:Result Comment: DESIRED INR: 2.0 - 3.0 CONDITIONS NOT LISTED BELOW 2.5 - 3.5 FOR PROSTHETIC HEART VALVE REPLACEMENT 2.5 - 3.5 RECURRENT THROMBOSIS Performed By: #### PT #### [facility] [address] [place] [address] Dr. Jose Hyman Coag (PPP) [Time]11.6 sNormal9.0-11.6The [facility] Comment on above:Performed By: #### PT #### [facility] [address] [place] [address] Dr. Jose Root HEPARIN MONITORon 07-82-5512yPYB Coag (Bld) [Time]55.6 s Critically high39.5-54.2The [facility] CenterComment on above:Result Comment: test repeatedPerformed By: #### HPYLLC #### [facility] [address] [place] [address] Dr. Jose Ordoñez Coag (Bld) [Time]25.6 sCritically low39.5-54.2The [facility] CenterComment on above:Performed By: #### PTTHEP #### [facility] [address] [place] [address] Dr. Jose Ko4on 53-22-3868M8 [Mass/Vol]6.40 ug/dLNormal5.53-11.00The [facility] CenterComment on above:Performed By: #### HPYLLC #### [facility] [address] [place] [address] Dr. Jose Tinoco 61-07-4183SAY2.660 uIU/mLNormal0.470-4.680The [facility] CenterComment on above:Performed By: #### HPYLLC #### [facility] [address] [place] [address] Dr. Jose Jackson [facility] HOSPITALNoPeoples Hospitale [facility] CenterComment on above: Result Comment: <0.34 UIU/ml HYPERTHYROID 0.34-5.60 UIU/ml EUTHYROID >5.60 UIU/ml HYPOTHYROIDPerformed By: #### HPYLLC #### [facility] [address] [address] [address] Jose Marmolejo W MANUAL DIFFon 36-25-4789XYLDOSDR LYMPH #NormalThe [facility] HospitalComment on above:Performed By: #### MONICO #### [facility] [address] [place] [address] Dr. Jose GonsalesATYPICAL LYMPH %NormalMain Campus Medical Center HospitalComment on above: Performed By: #### MONICO #### [facility] [address] [address] [address] Jose Galeana #0.1 103/ulNormal0.0-0.3The [facility] HospitalComment on above:Performed By: #### MONICO #### [facility] [address] [place] [address] Dr. Jose Galeana %1 %Normal0-5The [facility] CenterComment on above:Performed By: #### MONICO #### [facility] [address] [place] [address] Dr. Jose Rosales #0.00 103/ulNormal0.00-0.10The [facility] CenterComment on above:Performed By: #### MONICO #### [facility] [address] [place] [address] Dr. Jose Rosales %0.0 %Critically low0.2-2.0The [facility] CenterComment on above:Performed By: #### MONICO #### [facility] [address] [place] [address] Dr. Jose Gasca #NormalThe [facility] HospitalComment on above:Performed By: #### MONICO #### [facility] [address] [place] [address] Dr. Jose Gasca %NormalMain Campus Medical Center HospitalComment on above:Performed By: #### MONICO #### [facility] [address] [place] [address] Dr. Jose GonsalesCORRECTED WBCNormal4.0-11.0The [facility] HospitalComment on above: Performed By: #### MONICO #### [facility] [address] [address] [address] Jose Keane #0.00 103/ulNormal0.00-0.70The [facility] CenterComment on above:Performed By: #### MONICO #### [facility] [address] [address] [address] Jose Keane%0.0 %Critically low0.9-7.0The [facility] CenterComment on above:Performed By: #### MONICO #### [facility] [address] [place] [address] Dr. oJse GonsalesHCT47.0 %Grnhpt26.0-54.0The [facility] CenterComment on above: Performed By: #### MONICO #### [facility] [address] [place] [address] Dr. Jose GonsalesHGB15.6 g/ffUddefp45.0-18.0The [facility] CenterComment on above: Performed By: #### MONICO #### [facility] [address] [place] [address] Dr. Jose Mckeon #0.43 103/ulCritically low1.20-3.80The [facility] Comment on above:Performed By: #### MONICO #### [facility] [address] [place] [address] Dr. Jose Mckeon%6.0 %Critically low20.5-60.0The [facility] CenterComment on above:Performed By: #### MONICO #### [facility] [address] [place] [address] Dr. Jose GonsalesMCH30.8 sjRycfyk86.9-34.0The [facility] CenterComment on above: Performed By: #### MONICO #### [facility] [address] [place] [address] Dr. Jose GonsalesMCHC33.2 g/qjDhirdy85.9-35.2The [facility] CenterComment on above:Performed By: #### MONICO #### [facility] [address] [place] [address] Dr. Jose MichelleV92.9 qUGzgxnl54.0-94.0The [facility] CenterComment on above: Performed By: #### MONICO #### [facility] [facility] [address] [address] [address] Jose BurgosOCYTE #NormalMain Campus Medical Center HospitalComment on above: Performed By: #### MONICO #### [facility] [address] [address] [address] Jose BurgosOCYTE %NormalMain Campus Medical Center HospitalComment on above: Performed By: #### MONICO #### [facility] [address] [address] [address] Jose Loving#0.29 103/ulCritically low0.30-0.80The [facility] on above:Performed By: #### MONICO #### [facility] [address] [place] [address] Dr. Jose Loving%4.0 %Normal1.7-12.0The [facility] CenterComment on above: Performed By: #### MONICO #### [facility] [address] [place] [address] Dr. Jose LealV10.1 fLNormal9.5-13.5The [facility] CenterComascension macomb on above: Performed By: #### MONICO #### [facility] [address] [place] [address] Dr. Jose HendricksOCYTE #NormalMarion HospitalComment on above:Performed By: #### CBCDANIEL #### [facility] [address] [place] [address] Dr. Jose HendricksOCYTE %NormalMarion HospitalComment on above:Performed By: #### MONICO #### [facility] [address] [place] [address] Dr. Jose GonsalesNRBCNormalThBluffton HospitalComment on above:Performed By: #### MONICO #### [facility] [address] [address] [address] Jose VeraT139 103/ulCritically dat663-413Qpu [facility] CenterComment on above:Result Comment: no plt clumpingPerformed By: #### MONICO #### [facility] [address] [place] [address] Dr. Jose DeckerC5.06 106/ulNormal4.70-6.10The [facility] CenterComment on above:Performed By: #### MONICO #### [facility] [address] [place] [address] Dr. Jose GonsalesRDW13.0 %Gwtjes62.0-15.0The [facility] CenterComment on above: Performed By: #### MONICO #### [facility] [address] [place] [address] Dr. Jose Multani #6.41 103/ulNormal1.40-6.50The [facility] CenterComment on above:Performed By: #### MONICO #### [facility] [address] [place] [address] Dr. oJse Multani %89.0 %Critically high43.0-75.0The [facility] CenterComment on above:Performed By: #### MONICO #### [facility] [address] [place] [address] Dr. Jose JohnsonBC7.2 103/ulNormal4.0-11.0The [facility] CenterComment on above: Performed By: #### MONICO #### [facility] [address] [place] [address] Dr. Jose Maldonado HEAD WO CONon [id number] HEAD WO CONEXAMINATION: CT HEAD WO CON, 12/20/2021 6:10 PM [...] Electronically authenticated by: ORAL SMALLS Date: 2021-12-20 19:44[facility] HospitalCovid-19 PCR (CVDTB)on 67-36-9816MDWR-CoV-2 (COVID-19) RNA JORDON+probe Ql (Unsp spec)Not detectedNormalNOT DETECTEDThe [facility] Comment on above:Result Comment: When diagnostic testing is negative, the possibility of a false negative should be considered in the context of a patient's recent exposures and the presence of clinical signs and symptoms consistent with SARS-CoV-2. This test is not yet approved or cleared by the [place] Food and Drug Administration (FDA). This test was developed by [employer], [place], [place]. The performance characteristics of this test were validated by The [facility]. The results are not intended to be used as the sole means for clinical diagnosis or patient management decisions. The [facility] is authorized under Clinical Laboratory Improvement Amendments [...] for this test is supported by the [place] of Health and Human Service's declaration that circumstances exist to justify the emergency use of in vitro diagnostics for the detection and/or diagnosis of the virus that causes COVID-19. This EUA will remain in effect for the duration of the COVID-19 declaration justifying emergency of IVDs, unless it is terminated or revoked by the FDA (after which the test may no longer be used).Performed By: #### CVDTB #### [facility] [address] [place] [address] Dr. Jose RegaladoNZA Bertrand AND B AGon 85-96-7791CWWBCUSUEPSRX BELOWMary Rutan HospitalComment on above:Result Comment: Negative for Flu A protein angiten. Infection due to Flu A cannot be ruled out. FluA angiten in the sample may be below the detection limit of the test.Performed By: #### PT #### [facility] [address] [place] [address] Dr. Jose ValerioNEGHSEE Flower HospitalComment on above: Result Comment: Negative for Flu B protein antigen. Infection due to Flu B cannot be ruled out. FluB antigen in the sample may be below the detection limit of the test.Performed By: #### PT #### [facility] [address] [place] [address] Dr. Jose Thurston AGNegativeNormalNEGATIVE SEE COMMENTThe [facility] CenterComment on above:Performed By: #### PT #### [facility] [address] [place] [address] Dr. Jose Dailey AGNegativeNormalNEGATIVE SEE COMMENTThe [facility] CenterComment on above:Performed By: #### PT #### [facility] [address] [place] [address] Dr. Jose GonsalesINTERNAL CONTROLSWithin Normal LimitsNormalWithin Normal Limits The [facility] CenterComment on above:Performed By: #### PT #### [facility] [address] [place] [address] Dr. Jose GonsalesPROF CHEM 8 (BAS METB)on 84-67-9985Papva gap [Moles/Vol]16.9 mmol/LNormalMarion HospitalComment on above:Performed By: #### HPYLLC #### [facility] [address] [place] [address] Dr. Jose GonsalesCalcium [Mass/Vol]9.3 mg/dLNormal8.5-10.1The [facility] Comment on above:Performed By: #### HPYLLC #### [facility] [address] [place] [address] Dr. Jose GonsalesChloride [Moles/Vol]102 mmol/ZRhuyxw51-892DywMarion Hospital Comment on above:Performed By: #### HPYLLC #### [facility] [address] [address] [address] Jose GonsalesCO2 [Moles/Vol]23.0 mmol/UImxnbn59.0-30.0The [facility] Comment on above:Performed By: #### HPYLLC #### [facility] [address] [address] [address] Jose GonsalesCreatinine [Mass/Vol]2.41 mg/dLCritically high0.66-1.25The [facility] CenterComment on above:Performed By: #### HPYLLC #### [facility] [address] [address] [address] Jose MinaGFR-AF OTEMHIJP60 mL/min/1.55g9Achwdbbras low>=60The [facility] CenterComment on above:Performed By: #### HPYLLC #### [facility] [address] [place] [address] Dr. Jose MinaGFR-NON AF PHMVZMCU14 mL/min/1.73h0Fafslpfvyv low>=60The [facility] CenterComment on above:Performed By: #### HPYLLC #### [facility] [address] [address] [address] Jose GonsalesGlucose [Mass/Vol]239 mg/dLCritically zprl89-569LchMarion HospitalComment on above:Performed By: #### HPYLLC #### [facility] [address] [address] [address] Jose GonsalesPotassium [Moles/Vol]4.9 mmol/LNormal3.4-5.0[facility] Comment on above:Performed By: #### HPYLLC #### [facility] [address] [address] [address] Jose GonsalesSodium [Moles/Vol]137 mmol/MJfundu287-724TvtMarion Hospital Comment on above:Performed By: #### HPYLLC #### [facility] [address] [address] [address] Jose GonsalesUrea nitrogen [Mass/Vol]46.0 mg/dLCritically high7.0-18.0The [facility] CenterComment on above:Performed By: #### HPYLLC #### [facility] [address] [address] [address] Jose GonsalesUrea nitrogen/Creatinine [Mass ratio]19.1 mg/mgNoSt. Vincent HospitalComment on above:Performed By: #### HPYLLC #### [facility] [address] [place] [address] Dr. Jose Valdez, HIGH SENSITIVITYon 43-10-0222BLNEST937.7 pg/mL Critically high4.0-42.2The [facility] on above:Result Comment: CUT-OFF POINTS HAVE BEEN ESTABLISHED BASED ON THE FOURTH UNIVERSAL DEFINITIONS OF MYOCARDIAL INFARCTION. THE UPPER REFERENCE LIMIT (URL) OF TROPONIN, DEFINED THE 99TH PERCENTILE OF cTnI DISTRIBUTION IN A REFERENCE POPULATION, HAS BEEN CONFIRMED THE DECISION THRESHOLD FOR [place] DIAGNOSIS. test repeatedPerformed By: #### PT #### [facility] [address] [place] [address] Dr. Jose GonsalesHSTROP696.3 pg/mLCritically high4.0-42.2The [facility] Comment on above:Result Comment: CUT-OFF POINTS HAVE BEEN ESTABLISHED BASED ON THE FOURTH UNIVERSAL DEFINITIONS OF MYOCARDIAL INFARCTION. THE UPPER REFERENCE LIMIT (URL) OF TROPONIN, DEFINED THE 99TH PERCENTILE OF cTnI DISTRIBUTION IN A REFERENCE POPULATION, HAS BEEN CONFIRMED THE DECISION THRESHOLD FOR [place] DIAGNOSIS. test repeatedPerformed By: #### HPYLLC #### [facility] [address] [place] [address] Dr. Jose GonsalesXR CHEST 1 Von 31-11-0474PK CHEST 1 VEXAM: XR CHEST 1 V, 12/20/2021 HISTORY: SHORTNESS OF BREATH COMPARISON: Previous x-ray from 05/24/2021. TECHNIQUE: Portable AP upright view of the chest. FINDINGS: Moderate cardiomegaly. Status post sternotomy. No focal consolidation or pulmonary edema. Low lung volumes. Unremarkable bony structures. No acute cardiopulmonary findings. IMPRESSION: Moderate cardiomegaly. No significant interval change. Electronically authenticated by: MARIANELA HERRING Date: 2021-12-20 20:44[facility] METABOLIC PANELon 77-47-7658Jxbzzau [Mass/Vol]4.4 g/dL Normal3.5-5.7The [facility] CampusComment on above:Performed By: #### [id number] #### [facility] [address] [place] [address], USAALKALINE YGCOSU21 IU/GSgxqmt45-521Lee [facility] CampusComment on above:Performed By: #### [id number] #### [facility] [address] [place] [address], USAALT [Catalytic activity/Vol]19 U/LNormal7-52The [facility] CampusComment on above:Performed By: #### [id number] #### [facility] [address] [place] [address], USAAST [Catalytic activity/Vol]18 U/ILvouyf85-29Pzn [facility] CampusComment on above:Performed By: #### [id number] #### [facility] [address] [place] [address], USABilirubin [Mass/Vol]0.5 mg/dLNormal0.3-1.0The [facility] CampusComment on above:Performed By: #### [id number] #### [facility] [address] [place] [address], USACalcium [Mass/Vol]9.6 mg/dLNormal8.6-10.3The [facility] CampusComment on above:Performed By: #### [id number] #### [facility] [address] [place] [address], USAChloride [Moles/Vol]107 mmol/ZQcgoui93-882Jmw [facility] CampusComment on above:Performed By: #### [id number] #### [facility] [address] [place] [address], USACO2 [Moles/Vol]26 mmol/OLmglca94-73Uxs [facility] CampusComment on above:Performed By: #### [id number] #### [facility] [address] [place] [address], USACreatinine [Mass/Vol]2.01 mg/dLHigh0.70-1.30The [facility] CampusComment on above:Performed By: #### [id number] #### [facility] [address] [place] [address], USAeGFR- Dwqljqyf98 ml/min/1.73sq mAbnormal>60The [facility] CampusComment on above:Performed By: #### [id number] #### [facility] [address] [place] [address], USAeGFR- non- Spuwdozf89 ml/min/1.73sq mAbnormal>60The [facility] CampusComment on above:Performed By: #### [id number] #### [facility] [address] [place] [address], USAGlucose [Mass/Vol]130 mg/jHHzhs16-859Xel [facility] CampusComment on above:Performed By: #### [id number] #### [facility] [address] [place] [address], USAPotassium [Moles/Vol]5.1 mmol/LNormal3.5-5.1The [facility] CampusComment on above:Performed By: #### [id number] #### [facility] [address] [place] [address], USAProtein [Mass/Vol]7.1 g/dLNormal6.0-8.3The [facility] CampusComment on above:Performed By: #### [id number] #### [facility] [address] [place] [address], USASodium [Moles/Vol]139 mmol/AJurbej690-470Arl [facility] CampusComment on above:Performed By: #### 71424 #### [facility] [address] [place] [address], USAUrea nitrogen [Mass/Vol]37 mg/dLHigh7-25The [facility] CampusComment on above:Performed By: #### [id number] #### [facility] [address] [place] [address], USAHEMOGLOBIN A1Con 43-12-0296Xdrvxcm [Moles/Vol]157 mmol/L NormalThe [facility] CampusComment on above:Performed By: #### 99629 #### [facility] [address] [place] [address], UPKJeW9q (Bld) [Mass fraction]7.1 %High4.0-6.0The [facility] CampusComment on above:Performed By: #### 65825 #### [facility] [address] [place] [address], USAHIV VIRAL LOADon 16-03-8173GJT QNT RNA PCR:Not detected NormalThe [facility] CampusComment on above:Result Comment: The Aptima HIV Quant assay is a real-time wire coating operator metal-mediated amplification (TMA) test which has a dynamic [...] test to confirm the presence of HIV-1 infection.Performed By: #### [id number] #### [facility] [address] [place] [address], USALOG 10 COPIESNot detectedNormalThe [facility] CampusComment on above:Performed By: #### 23639 #### [facility] [address] [place] [address], USAURINALYSISon 14-81-3646Wmsddrfkln (U)CLEARNormalCLEARThe [facility] CampusComment on above:Performed By: #### [id number] #### [facility] [address] [place] [address], USABilirubin Ql (U)NegativeNormalNEGATIVEThe [facility] CampusComment on above:Performed By: #### 62963 #### [facility] [address] [place] [address], USAColor (U)YELLOWNormalYELLOWThe [facility] CampusComment on above:Performed By: #### [id number] #### [facility] [address] [place] [address], USAEPISNONE SEENNormalFEW,OCC,NONE SEENThe [facility] CampusComment on above:Performed By: #### [id number] #### [facility] [address] [place] [address], USAGlucose Ql (U)NegativeNormalNEGATIVEThe [facility] CampusComment on above:Performed By: #### [id number] #### [facility] [address] [place] [address], USAHemoglobin Ql (U)TRACEAbnormalNEGATIVEThe [facility] CampusComment on above:Performed By: #### [id number] #### [facility] [address] [place] [address], USAKETONENegativeNormalNEGATIVEThe [facility] CampusComment on above:Performed By: #### [id number] #### [facility] [address] [place] [address], USALEUK ESTERNegativeNormalNEGATIVEThe [facility] CampusComment on above:Performed By: #### 82742 #### [facility] [address] [place] [address], USANitrite Ql (U)NegativeNormalNEGATIVEThe [facility] CampusComment on above:Performed By: #### 39134 #### [facility] [address] [place] [address], USApH (U)6.0 [pH]Normal5.0-8.0The [facility] CampusComment on above:Performed By: #### 01411 #### [facility] [address] [place] [address], USAProtein Ql (U)NegativeNormalNEGATIVEThe [facility] CampusComment on above:Performed By: #### [id number] #### [facility] [address] [place] [address], USARBC0-2AbnormalNONE SEENThe [facility] CampusComment on above:Performed By: #### 39758 #### [facility] [address] [place] [address], USASPEC GRAV1.489Hlda4.015-1.020The [facility] CampusComment on above:Performed By: #### 43210 #### [facility] [address] [place] [address], USAWBC UANONE SEENNormalNONE SEENThe [facility] CampusComment on above:Performed By: #### [id number] #### [facility] [address] [place] [address], [place] Encounters Encounter DateEncounter TypeCare ProviderFacilityStart: 31-75-7736syvzhtghzmFFDS LEIGHACMC Healthcare System Glenbeightart: 07-01-2025 End: 22-14-2413gwdkvthxdkWfghgcw R NILLFacility: BellevueStart: 07-01-2025 End: 88-38-7669Btnegtq encounter procedureMichael R NILL [phone]-KyaflBucyrus Community Hospital General Surgery Chris Start: 82-46-0818kuciwmzxxdACKEKettering Health Main Campustart: 05-13-2025 End: 45-05-1695wvburscorxEFCHBQA A [facility] Start: 16-55-6249akiqeogdxuREMBHocking Valley Community Hospitaltart: 09-59-6667ppkitvhqnmQNDSHocking Valley Community Hospitaltart: 04-17-2025 End: 50-12-2321iqfdosifrdDNZGPAE DANITZAOhio State Health Systemtart: 49-35-6734qmxvvwzdgxYGUZKettering Health Main Campustart: 20-72-3897qtibwjikjiWDEHKettering Health Main Campustart: 72-38-4247oeqblbusnmCGWKKettering Health Main Campustart: 88-06-2040jwpesrepkoLQQFKettering Health Main Campustart: 66-28-0591hfuczxgpuvQQRHKettering Health Main Campustart: 54-17-1617gjknvlmhdzMEWPKettering Health Main Campustart: 11-05-2024 End: 92-18-4724ehgcxsbyxcJJBTUUA A [facility] Start: 10-29-2024 End: 44-74-2748abtsrmzukrCHXDN KHOURYKettering Health – Soin Medical Centertart: 29-56-9866beidebuayjYGEUHocking Valley Community Hospitaltart: 11-86-5677sfuxvscwcuKMEE [facility] Southtart: 94-80-3948ugfkefrfclYUFUKettering Health Main Campustart: 79-95-8990kclfljzncsKOJTHocking Valley Community Hospitaltart: 67-29-9638afwpclhbyaWRBYHocking Valley Community Hospitaltart: 98-89-4189ihrthupfhbVUNWHocking Valley Community Hospitaltart: 06-83-1487ufujgezayzFLIG CHACKOFacility:F2Eiwbd: 09-14-2022 End: 91-69-3296vabhhreantFL JONAS HOYFacility:S4Omcsr: 58-50-9628njkjpqmndnPY ELENO FATIMAELFacility:X3Wsgdd: 05-16-2022 End: 38-09-3373tqgtipsnjyVQ ELENO FATIMAELFacility:Z3Iadgw: 04-05-2022 Encounter for other preprocedural examinationDR ELENO FATIMASelect Medical [facility] HospitalStart: 17-55-2617Uufmycdni for preprocedural laboratory examinationDR ELENO FATIMASelect Medical [facility] HospitalStart: 04-05-2022 End: 53-01-2684hidsbkxkudMSPYXRH HOYFacility:UTMCStart: 04-01-2022 End: 52-19-7834lzjxiqsujuNO ELENO FATIMAELFacility:U0Jqrzq: 04-01-2022 End: 50-13-9603Fgwxokssn for other preprocedural examinationDR ELENO ALEX Facility:O0Npkug: 03-21-2022 End: 39-35-0016ydejqgkaifIQ ELENO MCDONALDacility:O0Xcazr: 01-11-2022 ambulatoryMOHAMAD ALGHOTHANIFacility:F7Hgunv: 01-03-2022 End: 25-82-6295mbdqoajbaxYY ELENO FATIMAELFacility:O9Gooot: 12-24-2021 End: 85-36-9936cufuzwfogwAS JONAS HOYFacility:H9Mpfbt: 12-20-2021 End: 33-12-0180tzhduiaqkiQR JONAS HOYFacility:H1 Procedures DateProcedureProcedure DetailPerforming ClinicianStart: 79-68-2322AUY screening DR ELENO JENKINSComment on above:Performed By: #### PTTHEP #### [facility] [address] [place] [address] Dr. Jose GonsalesStart: 23-08-1677QwmcpzpsdehUarlqnx NILL Start: 12-26-6711Ruumfr of umbilical herniaMichael NILL Cardiac catheterizationMichael NILL Coronary artery bypass graftMichael NILL Implantation of insertable loop recorderMichael NILL Incision and drainage of abscessMichael NILL Comment on above:thighLaparoscopic cholecystectomy Jose NILL Immunizations Immunization DateImmunizationNotesCare ViqpluddGyncoovf90-59-4355tykvkdqpp virus vaccine, unspecified formulationMichael NILL [phone]-ByascParkview Health Surgery Albert 39-34-0081PHYT-CoV-2 (COVID-19) mRNA-1273 vaccineMichael NILL [phone]-CshoqParkview Health Surgery Albert 82-29-2163ATGB-CoV-2 (COVID-19) mRNA-1273 vaccineMichael NILL [phone]-NdaymBucyrus Community Hospital General Surgery [place] Comment on above:Result Comment: 2023-02-08: TGY4116-11-0779XUYP-HrD-0 (COVID- 19) mRNA-1273 vaccineMichael NILL [phone]-IzxpjParkview Health Surgery Albert Comment on above:Result Comment: 2023-02-08: [id number] Payers DatePayer CategoryPayerPolicy [id number] [id number]-tmy [id number] ..840.1.545378.3.57[id number] 2.16.840.1.881099.3.57[id number] 2.16.840.1.603152.3.57[id number] 2.16.840.1.556063.3.57[id number] 2.16.840.1.399472.3.57[id number] 2.16.840.1.135980.3.57[id number] 2.16.840.1.398848.3.57[id number] 2..840.1.818604.3.57[id number] 2.840.1.914819.3.57[id number] 2.16.840.1.361496.3.57[id number] 2.16.840.1.588286.3.57[id number] 2.840.1.805406.3.57[id number] 2.840.1.437335.3.579.2.727 Social History DateTypeDetailFacilityStart: 09-01-2254Olmoaxj smoking statusNever smoked tobacco (finding)[facility] AlbertTobacco smoking statusNeverBucyrus Community Hospital General Surgery [facility] HospitalueSexual OrientationBucyrus Community Hospital General Surgery [place] Sex Assigned At BirthMalTriHealth [facility] SexMale (finding)[facility] Clinical Notes 03-21-2022 to 07-01-2025 Note Date & SdozQirzWczmyrmp71-46-1765 NoteGeneral Surgery Office/Clinic Note Chief Complaint consultation for colonoscopy HPI Staff 70 year old male presents on consultation from Dr. Sheets for screening colonoscopy. Denies abdominal or rectal pain. No rectal bleeding or change in bowel habits. Denies nausea, vomiting or weight loss. Patient taking Eliquis for a.fib. Last colonoscopy completed 11/2009 with cecal serrated adenoma and sigmoid tubular adenoma. Grandmother with history of colon cancer, age 70's. History of Present Illness 70 yo male with h/o atrial fibrillation, on Eliquis, htn, DMII, hypothyroidism, CVA, chronic kidneydisease, CAD, ischemic cardiomyopathy, cortical blindness, HIV disease, referred for screening colonoscopy; patient denies change in bms or blood in stools, no abd complaints; last colonoscopy 2009 with removal of cecal serrated adenoma and sigmoid tubular adenoma; abdominal operations significant for LS cholecystectomy and repair of umbilical hernia; on Eliquis, no asa or NSAID use; no tobacco use; no fmhx of GI malignancy or IBD. patient seen 2 years ago for colonoscopy, but cancelled procedure due to illness. Review of Systems PHQ Score Initial Depression Screen Score: 0 SCORE ROS - Provider Constitutional: no fever, no sweats, no weight loss. Eyes: no glasses, no blurred vision, no visual loss. ENMT: no dentures, no hoarseness, no swallowing difficulties, no hearing loss, no ear infection(s),no nose bleeds. Cardiovascular: normal blood pressure, no [...] noncontributory. Physical Exam Vitals & Measurements HR: 70(Peripheral) RR: 16 BP: 116/68 HT: 71 in HT: 180 cm WT: 218.698 lb WT: 99.2 kg BMI: 30.62 HEENT: normal conjunctiva, sclera clear, no scleral icterus, EOM intact, PERRLA, oral mucosa moist without lesions. Neck: trachea midline, no mass, symmetric, no thyromegaly or nodules, no adenopathy Respiratory: lungs CTA, respirations non labored. Cardiovascular: regular rate and rhythm, no murmur, no pedal edema or varicosities. Gastrointestinal: obese, soft, non distended, no tenderness, no masses, no palpable hernias, diastasis recti no, no hepatosplenomegaly; normal bs Musculoskeletal: normal gait, digits and nails without infection, nodes, cyanosis, clubbing. Skin: no rashes, no lesions, no ulcers, no subcutaneous nodules, induration. Psychiatric/Neuro: oriented to time, place, person, judgement normal, affect appropriate for age, insight intact, no focal deficits. Tests: review of old records completed , Discussed surgical options, risks, and possible complications with patient. Assessment/Plan 1. Personal history of adenomatous and serrated colon polyps (Z86.0101: Personal history of adenomatous and serrated colon polyps) plan colonoscopy under anesthesia, informed consent obtained. Follow-up No qualifying data available Problem List/Past Medical History Ongoing Anemia Atherosclerotic heart disease Atrial fibrillation Atrial flutter BMI 30.0-30.9,adult BPH (benign prostatic hyperplasia) Bradycardia Cardiomyopathy, ischemic Chronic kidney disease stage 3B. Chronic systolic heart failure Cortical blindness Diabetes History of CVA (cerebrovascular accident) History of myocardial infarction HIV disease HTN (hypertension) Hyperlipidemia Hypertriglyceridemia Hypothyroidism Inflammatory polyneuropathy Obesity due to excess calories Personal history of adenomatous and serrated colon polyps Personal history of colonic polyps Thrombophilia Historical No qualifying data Procedure/Surgical History Colonoscopy (12/16/2009), Repair of umbilical hernia (12/16/2009), CABG - Coronary artery bypass graft, Cardiac catheterization, Implantation of insertable loop recorder, Incision and drainage of abscess, Laparoscopic cholecystectomy. Medications Crestor 20 mg Tab, 20 mg= 1 tab(s), Oral, Daily Eliquis 2.5 mg oral tablet, 2.5 mg= 1 tab(s), Oral, Daily Fish Oil 1200 mg oral capsule, 1200 mg= 1 cap(s), Oral, TID Flomax 0.4 mg Cap, 0.4 mg= 1 cap(s), Oral, Daily isosorbide mononitrate 30 mg ER Tab, 30 mg= 1 tab(s), Oral, qAM Jardiance 10 mg oral tablet, 10 (more content not included)...[facility]Result Comment: Electronically Signed By: ROSITA LANDEROS, Jose Lewis\Date and Time Signed: 07/01/25 19:41 [id number] Note Medication adherence counselling was provided, including using reminders HIV transmission reviewed Counseled on safe sex, using condoms, U=U, he is not active Continue tivicay and prezcobixK[facility] Note Subjective Patient ID: Parish Contreras is a 70 y.o. adult who presents for Health Maintenance (/) and Med Management. Here for follow up on HIV No new complaints Joints hurt no more no less Has been adherent to tivicay and prezcobix Last labs in October A1c 7.1 VL was undetectable, CD4 normal range No SOB no CP, no GI symptoms Neuropathic pain continues to be a problem. Takes tramadol and lyrica. Tried to cut down on tramadol and pain worsened. Creatinine stable around 1.8-2 Daughter present Past Medical History: Medical History[1] Problem List[2] Past Surgical History: Surgical History[3] Medications: Medications Ordered Prior to Encounter[4] Social History: Social History Socioeconomic History Marital status: Spouse name: Not on file Number of children: Not on file Years of education: Not on file Highest education level: Not on file Occupational History Not on file Tobacco Use Smoking status: Never Passive exposure: Never Smokeless tobacco: Never Vaping Use Vaping status: Never Used Substance and Sexual Activity Alcohol use: Never Drug use: Never Sexual activity: Not Currently Partners: Female Comment: Not recently sexually active since last partner. Other Topics Concern Not on file Social History Narrative Not on file Social Drivers of Health Financial Resource Strain: Low Risk (11/21/2023) Overall Financial Resource Strain (CARDIA) Difficulty of Paying Living Expenses: Not very hard Food Insecurity: No Food Insecurity (11/21/2023) Hunger Vital Sign Worried About Running Out of Food in the Last Year: Never true Ran Out of Food in the Last Year: Never true Transportation Needs: No Transportation Needs (11/21/2023) Transportation Lack of Transportation (Medical): No Lack of Transportation (Non-Medical): No Physical Activity: Not on file Stress: Not on file Social Connections: Not on file Intimate Partner Violence: Unknown (05/13/2025) Humiliation, Afraid, Rape, and Kick questionnaire Fear of Current or Ex-Partner: No Emotionally Abused: Not on file Physically Abused: Not on file Sexually Abused: Not on file Housing Stability: Low Risk (11/21/2023) Housing Stability Vital Sign Unable to Pay for Housing in the Last Year: No Number of Times Moved in the Last Year: Not on file Homeless in the Last Year: Not on file Family History: Family History[5] Allergies: Allergies[6] Review of Systems All other systems reviewed and are negative. Objective BP 124/77 Pulse 52 Temp 36.4 ???C (97.6 ???F) (Oral) Resp 16 Ht 1.803 m (5' 11 ) Wt 97.8 kg (215 lb 9.6 oz) BMI 30.07 kg/m??? Physical Exam Constitutional: Appearance: Normal appearance. Parish is overweight. HENT: Head: Normocephalic and atraumatic. Eyes: General: No scleral icterus. Conjunctiva/sclera: Conjunctivae normal. Cardiovascular: Rate and Rhythm: Normal rate and regular rhythm. Pulses: Normal pulses. Heart sounds: Normal heart sounds. No murmur heard. No friction rub. No gallop. Pulmonary: Effort: Pulmonary effort is normal. Breath sounds: Normal breath sounds. Abdominal: General: Abdomen is flat. There is no distension. Palpations: Abdomen is soft. Tenderness: There is no abdominal tenderness. Musculoskeletal: General: No swelling, tenderness or deformity. Cervical back: Neck supple. No tenderness. Lymphadenopathy: Cervical: No cervical adenopathy. Skin: General: Skin is warm and dry. Neurological: Mental Status: Parish is alert and oriented to person, place, and time. Psychiatric: Mood and Affect: Mood normal. Labs: CD4 Date/Time Value Ref Range Status 11/05/2024 12:43 PM 29.42 (L) 40.00 - 70.00 % Final CD4 Abs Date/Time Value Ref Range Status 11/05/2024 12:43 PM 533 430 - 1,185 cells/mm3 Final HIV Quantitative RNA Date/Time Value Ref Range Status 11/05/2024 12:43 PM Final Comment: Not Detected 05/10/2022 11:20 AM DETECTED BUT <30 COPIES/ML Final Comment: The Aptima HIV Quant assay is a real-time wire coating operator metal-mediated amplification (TMA) test which has a dynamic [...] to confirm the presence of HIV-1 infection. Assessment/Plan Problem List Items Addressed This Visit Infectious/Inflammatory Human immunodeficiency virus infection (CMS/HCC) - Primary Overview date of diagnosis 2000. 2001 Kaletra/zer (more content not included)...[facility]08-19-[facility]25 Grace Contreras seated comfortably in exam room. Blood draw explained and patient verbalized an understanding and consent. Venipuncture site was cleaned and venipuncture performed in Right Antecubital Fossa using aseptic technique per provider order. Blood draw Successful 1 attempts made. Tourniquet applied, 21 gauge needle used Gauze applied with pressure post-draw until hemostasis achieved. Site clean, dry, no bleeding, no redness, and no swelling Bandage applied Well tolerated by patient. Specimens labeled in presence of patient with patient identifiers, date, time, and initials. Samples sent to lab via clinic plater apprentice schedule.[facility]07-24-2025 NoteCardiovascular Medicine [facility] SUBJECTIVE Chief Complaint Patient presents with Atrial Flutter Coronary Artery Disease Congestive Heart Failure Hypertension Parish Contreras is a 70 y.o. male here for follow-up. HPI Patient has history of coronary artery [...] legs edema or leg discomfort on exertion UPDATE 04/17/2025 He denies any changes since last seen. He thinks he may have gained 20lbs in the last 2 years - gradual. He does a lot of yard work. He can leg pain with exertion. He also has arthritis, joint pain and back issues. He c/o fatigue - this is not new for him. Denies c/o CP, dyspnea, orthopnea, PNA, LE edema, dizziness/LH, palpitations. Problem List[1] Medical History[2] Family History[3] Social History[4] Allergies[5] OBJECTIVE Visit Vitals BP 108/63 (BP Location: Left arm, Patient Position: Sitting) Pulse 68 Ht 1.803 m (5' 11 ) SpO2 94% BMI 29.29 kg/m??? Smoking Status Never BSA 2.18 m??? Medications: Current Outpatient Medications: Contour Test Strips strip, test blood sugar EVERY DAY NEEDED, Disp: 100 strip, Rfl: 4 Eliquis 2.5 mg tablet, TAKE ONE TABLET [...] XL (Toprol-XL) 25 mg 24 hr tablet, TAKE ONE TABLET BY MOUTH EVERY DAY, Disp: 90 tablet, Rfl: 0 nitroglycerin (Nitrostat) 0.4 mg SL tablet, Place 0.4 mg under the tongue., Disp: , Rfl: pregabalin (Lyrica) 100 mg capsule, TAKE 1 CAPSULE BY MOUTH TWICE DAILY, Disp: 60 capsule, Rfl: 2 Prezcobix 800-150 [...] TWICE DAILY, Disp: 60 tablet, Rfl: 2 Physical Exam Constitutional: Appearance: Normal appearance. He is normal weight. HENT: Head: Normocephalic and atraumatic. Right Ear: External ear normal. Left Ear: External ear normal. Eyes: Extraocular Movements: Extraocular movements intact. Pupils: Pupils are equal, round, and reactive to light. Neck: Vascular: No carotid bruit. Cardiovascular: Rate and Rhythm: Normal rate and regular rhythm. Pulses: Normal pulses. Heart sounds: Normal heart sounds. Pulmonary: Effort: Pulmonary effort is normal. Breath sounds: Normal breath sounds. Abdominal: General: Bowel sounds are normal. Palpations: Abdomen is soft. Musculoskeletal: General: Normal range of motion. Cervical back: Neck supple. Right lower leg: No edema. Left lower leg: No edema. Skin: General: Skin is warm and dry. Neurological: General: No focal deficit present. Mental Status: He is alert and oriented to person, place, and time. Psychiatric: Mood and Affect: Mood normal. Behavior: Behavior normal. Thought Content: Thought content normal. Judgment: Judgment normal. Labs: No results found for: EXTCMP , BMPR1A , CBCDIF , BNP , LASAP , RED Lab on 11/05/2024 Component Date Value Triglycerides 11/05/2024 211 (H) Cholesterol 11/05/2024 140 LDL Calculated 11/05/2024 62 HDL 11/05/2024 36 Non HDL Cholesterol 11/05/2024 104 Total VLDL-C 11/05/2024 42 (H) Cholesterol/HDL Ratio 11/05/2024 3.9 Hemoglobin A1C 11/05/2024 7.1 (H) Estimated Average Glucose 11/05/2024 157 Office Visit on 11/05/2024 Component Date Value Sodium 11/05/2024 139 Potassium 11/05/2024 4.5 Chloride 11/05/2024 105 CO2 11/05/2024 27 Anion Gap 11/05/2024 12 BUN 11/05/2024 27 (H) Creatinine 11/05/2024 1.88 (H) BUN/Creatinine Ratio 11/05/2024 14.4 Glucose 11/05/2024 112 (H) Calcium 11/05/2024 9.7 AST 11/05/2024 15 ALT (SGPT) 11/05/2024 14 Alkaline Phosphatase 11/05/2024 66 Total Protein 11/05/2024 7.2 Albumin 11/05/2024 4.6 Total Bilirubin 11/05/2024 0.6 eGFR 11/05/2024 37.7 (more content not included)...[facility]07-[facility] NotePatient is here today for a 6 month follow up. Patient states he gets tired a lot and has MEDINA, leg fatigue with pain, stiffness Patient denies chest pain, palpitations, dizziness, or leg swelling. Patient had lab done in February. Patient would like to talk about loop monitor and possible removal. Review of Systems Constitutional: Positive for malaise/fatigue. Cardiovascular: Positive for dyspnea on exertion. Musculoskeletal: Positive for back pain and stiffness.[facility]07-21-2025 NoteEligibility: Patient meets program eligibility. Documentation turned in [facility]/14/20[facility] called patient regarding program eligibility. Patient reports daughter typically assist with renewal process. Patient did take down [facility] phone number & email address. Application was completed, will be submitted along with supportive documents when received.[facility]06-24-2025 Note03/18 - [facility] reached out to Patient regarding program eligibility. Patient did not answer, [facility] left a voicemail.[facility]06-24-2025 Note [facility] called patient regarding program eligibility. Patient reports daughter typically assist with renewal process. Patient did take down [facility] phone number & email address. Application was completed, will be submitted along with supportive documents when received.[facility]02-14-2025 Note- Management per [facility]CPUn[facility]02-14-2025 Note- Patient to continue on Tivicay and Prezcobix while obtaining routine HIV labs again today. - Medication adherence counselling was provided, including using reminders - HIV transmission reviewed - Counseled on safe sex, using condoms, U=U, the risk of increasing incidence of STDs including syphilisUnUpper [facility]02-11-2025 Note Administered Hep A Vaccine per provider order. Pt tolerated injection/medication with no adverse effects. Correct medication verified by a 2nd medical staff cps team lead. Left deltoid, IM.[facility]02-11-2025 Note Attestation signed by Sushila Lucero MD at 11/08/2024 8:59 PM (Updated) I [...] in the care of this patient. . Subjective Patient ID: Parish Contreras is a [...] Pure hyperglyceridemia Costal chondritis (more content not included)...[facility]02-04-2025 NoteUT [facility] Subjective Parish Robert Ben is a 69 y.o. year old male patient being seen for Atrial Fibrillation, Coronary Artery Disease, Hyperlipidemia, Congestive Heart Failure, and Shortness of Breath Patient Active Problem List Diagnosis Atrial flutter ([facility]/HCC) Benign prostatic hyperplasia Essential hypertension Human immunodeficiency virus infection ([facility]/HCC) Hyperlipidemia Hypothyroidism Neuralgia and neuritis, unspecified Legal blindness Type 2 diabetes mellitus without complication ([facility]) Transient ischemic attack Onychomycosis due to dermatophyte Pure hyperglyceridemia Costal chondritis Increased frequency of urination S/P ablation of atrial flutter Weight loss, unintentional Chronic systolic heart failure ([facility]) Coronary artery disease of bypass graft of [place] heart with stable angina pectoris ([facility]) Stage 3b chronic kidney disease ([facility]) Personal history of colonic polyps Anemia Bradycardia Cardiomyopathy, ischemic Diabetes ([facility]) History of myocardial infarction Hx-TIA (transient ischemic attack) Peripheral polyneuropathy Paroxysmal A-fib ([facility]) Atherosclerotic heart disease Cortical blindness Preventative health care Primary osteoarthritis of both knees Cerebral infarction ([facility]) Displacement of lumbar intervertebral disc without myelopathy Lumbar hernia Thrombophilia ([facility]) HPI Patient has history of coronary artery [...] Diagnosis Date Abnormal ECG Arrhythmia Atrial fibrillation ([facility]/HCC) Back pain herniated disc CHF (congestive heart failure) ([facility]) Coronary artery disease Diabetes ([facility]) Heart attack ([facility]/HCC) High cholesterol HIV (human immunodeficiency virus infection) ([facility]/HCC) Hyperlipidemia Hypertension Hyperthyroidism Immune system disorder (CMS/HCC) Myocardial infarction (CMS/HCC) Neuropathy Stroke (cerebrum) ([facility]) Past Surgical History: Procedure Laterality Date CHOLECYSTECTOMY [...] Never BSA 2.17 m??? (more content not included)...[facility]02-03-2025 Note HIV Quantitative RNA Date Value 05/07/2024 [...] 06/28/2011, 05/07/2024 Unspecified Sars-Cov-2 Vaccination 12/22/2020, 01/19/2021, 09/15/2021[facility]06-27-20[facility] NoteCARDIAC STRESS TEST Requesting Physician: Procedure Date:03/21/2022 Lexiscan Stress Test with Myocardial Perfusion Imaging performed at the [facility] on 03/21/2022. Informed consent was obtained. An [...] Myocardial perfusion images will be reported separately. [facility] Signed and Approved by: DR ELENO JENKINS 03/29/2022 20:54:00[facility] note No data available for this section [facility] Hospital Discharge instructions No data available for this section [facility] Progress note No data available for this section [facility] Summary Purpose Family History No Family History Records FoundNo Family History Records FoundNo Family History Records Found No data available for this section No Family History Records Found Advance Directives No Advanced Directives Records FoundNo Advanced Directives Records FoundNo Advanced Directives Records FoundNo Advanced Directives Records Found Additional Source Comments (unrecognized sect ion and content) No Status Records FoundNo Status Records FoundNo Status Records FoundNo Status Records Found INFORMATION SOURCE (unrecogn ized section and content) DATE CREATED AUTHOR 04/13/2022 [facility] DATE CREATED AUTHOR AUTHOR'S ORGANIZ ATION 09/26/2022 [facility] DATE CREATED AUTHOR AUTHOR'S ORGANIZ ATION 07/02/2025 [facility] DATE CREATED AUTHOR AUTHOR'S ORGANIZ ATION 07/11/2025 [facility] Patient Care team informatio n (unrecognized section and content) Personnel Name: Jonas Sheets MD Address: [address] [place] [address] [employer]: FOR RECORDS PERTAINING TO PATIENTS WHO ARE [...] BE BASED ON THE PRIMARY CLINICAL RECORDS. [facility]. provides no warranty or guarantee of the accuracy or completeness of information in this document.
== END 2025-07-15 13:03 | disposition home or self-care (01) ==
LOC: PST 13:02
PROVIDERS: PCP Family Medicine; Visit Provider Surgery
DX: Z01.818 Encounter for other preprocedural examination (principal); Z12.11 Encounter for screening for malignant neoplasm of colon

== ENCOUNTER 2025-07-23 08:08 | Day surgery (SDC) | payer MEDICARE, SELFPAY ==
--- NOTE | 2025-07-23 | OP_ITS ---
OPERATION DATE: 07/23/2025 PREOPERATIVE DIAGNOSIS: Colorectal screening. POSTOPERATIVE DIAGNOSIS: A 4 mm ascending colon polyp, 3 mm descending colon polyp. PROCEDURE: Colonoscopy to cecum with cold snare polypectomy x2. SURGEON: Jose Infante M.D. ANESTHESIA: Monitored anesthesia care. ESTIMATED BLOOD LOSS: Less than 1 mL. INDICATIONS AND CONSENT: Patient is a 70-year-old male presents for colorectal screening. Indications, risks, benefits, alternatives of proceeding with colonoscopy were explained extensively to the patient, including the risks of bleeding, colon perforation or anesthetic complications. All of his questions were answered. Informed consent was obtained. PROCEDURE: Patient brought to the operating room, placed in the left lateral decubitus position. Monitored anesthesia care was provided. Rectal exam was performed which showed no masses or blood. The scope was inserted into the anal canal. Under direct visualization was advanced. With the aid of abdominal compression, it was advanced to the cecum where cecal markings were clearly identified. Upon withdrawal of the scope, mucosal surfaces were carefully examined. Within the proximal ascending colon, there was noted to be an oblong, 4 mm sessile polyp that was removed with cold snare with good hemostasis. Within the descending colon, there was noted to be a 3 mm sessile polyp that was also removed with cold snare with good hemostasis. There was no significant diverticulosis. No inflammatory changes or ulcerations. The scope was retroflexed in the anal canal. There was no significant hemorrhoidal disease. The scope was then withdrawn. Patient tolerated procedure well, was sent to recovery room in good condition. Follow up surveillance colonoscopy likely in five years, but will depend on the pathology reports. CC: Andrey Murillo M.D. [facility] DE JESUS
--- OUTSIDE RECORDS SUMMARY | 2025-07-23 08:12 | XMS_ITS | Clinical Summary ---
Author Organization [facility] Healthcare Address [address] [place] [address] Care Team Providers Care Organ Tuner Name Role Phone Unavailable Primary Care Provider Unavailabl e Social History Tobacco UseTypesPacks/DayYears UsedDateSmoking Tobacco: Never AssessedSex and Gender InformationValueDate RecordedSex Assigned at BirthNot on fileLegal Sex Male12/07/2022 7:19 PM EDTGender IdentityNot on fileSexual OrientationNot on file Plan of Treatment Not on file
--- OUTSIDE RECORDS SUMMARY | 2025-07-23 08:13 | XMS_ITS | Patient Health Record ---
Author Organization [facility] in [place] Address [address] [place] [address] Care Team Providers Care Optical Instrument Repairer Name Role Phone Miguel Murillo Primary Care Provider [phone] Allergies Allergen (clinical drug ingredient) Drug/Non Drug Allergy documented on EMR Reaction Allergy Type Onset Date Status stavudine Stavudine Unknown Drug Allergy ActiveSubstance with sulfonamide structure and antibacterial mechanism of action (substance)Sulfa AntibioticsunknownDrug AllergyActiveciprofloxacinCiprofloxacin unknownDrug AllergyActiveticlopidineTiclopidinerashDrug AllergyActive Results Component Value Reference Range Notes SGPT Reviewed date:04/12/2025 03:03:53 PM Interpretation: Performing Lab: Notes/Report: [facility] , Alanine Aminotransferase 25 16-63 U/L Performing Lab:see note - [facility] LBSGOT Reviewed date:04/12/2025 03:03:53 PM Interpretation: Performing Lab: Notes/Report: [facility] ,Aspartate Amino Idctjpreoza7423-71 U/LPerforming Lab:see note - [facility] LBLIPID PROFILE Reviewed date:04/12/2025 03:03:53 PM Interpretation: Performing Lab: Notes/Report: [facility] ,Mshfrkedqfqtk682<=150 mg/rQKrxbttstnsc496<=200 mg/dLHDL Svfmqzmgqkw1894-03 mg/dL > or =60 mg/dl - LOW CARDIOVASCULAR RISK <40 mg/dl - HIGH CARDIOVASCULAR RISK LDL Cholesterol Swtoebjlsf55.0 <100 mg/dl OPTIMAL 100-129 mg/dl NEAR OR ABOVE OPTIMAL 130-159 mg/dl BORDERLINE HIGH 160-189 mg/dl HIGH >190 mg/dl VERY HIGH VLDL VYLFAQFHJOA23.0Chol HDL Ratio2.9 3.3 - 4.4 LOW RISK 4.4 - 7.1 AVERAGE RISK 7.1 - 11.0 MODERATE RISK >11.0 HIGH RISK Performing Lab:see noteML - [facility] LB Reason For Referral Reason Screening colonoscpy Diagnosis 1 Well adult (Z00.00) Referral Organization [facility] Referring Provider First Name Miguel Referring Provider Last Name Chidi Referring Provider Speciality Family Med billy Referred Provider Jose Infante Referred Provider Specialty General Surg zain Referral Priority Routine Medications Medication SIG (Take, Route, Frequency, Duration) Notes Start Date End Date Status Lyrica 100 MG 1 capsule Orally bid ActivemetFORMIN HCl 1000 MG1 tablet Orally twice dailyActiveMetoprolol Succinate ER 25 MG1 tablet Orally Once a dayActiveFlomax 0.4 MG1 capsule Orally Once a day ActiveIsosorbide Mononitrate ER 30 MG1 tablet in the morning Orally Once a day ActiveJardiance 10 MG1 tablet Orally Once a dayActiveLevothyroxine Sodium 50 MCG 1 tablet in the morning on an empty stomach Orally Once a dayActivePrezcobix 800-150 MG1 tablet Orally Once a dayActiveCrestor 20 MG1 tablet Orally Once a dayActiveTivicay 50 MG1 tablet Orally Once a dayActiveEliquis 2.5 MG1 tablet Orally Once dailyActiveFish Oil 1200 MG1 capsule Orally Three times a day 06/19/2024ctivetraMADol HCl 50 MG1-2 tablets Orally Once a day- PRNActive Immunizations Vaccine Route Administration Date Status Comme nts Flu, Fluad (87660) 65 yrs+, single-dose syringe (1956-8009) IM Intramuscular 07/25/2023 Administered Social History Tobacco Use: Social History Observation Description Date Details (start date - stop date) Never Smoker NA - NA Tobacco Use/Smoking Question Answer Notes Patient is a nonsmoker Alcohol Screen (Audit-C) Question Answer Notes Did you have a drink containing alcohol in the p ast year? No Mvrsex6UckjbppoztoyiwHjeuzydsBKLEA-G (Standard) Question Answer Notes Did you have a drink containing alcohol in the p ast year? No Bkwgcd8RbbifzwkksqgxhDamvvmbr Problems Problem Type SNOMED Code ICD Code Onset Dates Problem Status W/U Status Risk Notes Problem Thrombophilia (956699336) Other thromboph kaz (D68.69) ActiveconfirmedProblemPure hyperglyceridemia (500757142)Pure hyperglyceridemia (E78.1)ActiveconfirmedProblemIschemic cardiomyopathy (924449668)Ischemic cardiomyopathy (I25.5)ActiveconfirmedProblemAtrial flutter (5836610)Unspecified atrial flutter (I48.92)ActiveconfirmedProblemChronic systolic heart failure (378627372)Chronic systolic (congestive) heart failure (I50.22)Activeconfirmed ProblemHistory of polyp of colon (situation) (724458812)Personal history of colonic polyps (Z86.010)ActiveconfirmedProblemHyperlipidaemia (22068251) Hyperlipemia (E78.5)ActiveconfirmedProblemHypothyroidism (95126556) Hypothyroidism (E03.9)ActiveconfirmedProblemAtrial fibrillation (36547602) Paroxysmal a-fib (I48.0)ActiveconfirmedProblemBradycardia (16468078)Bradycardia (R00.1)ActiveconfirmedProblemPeripheral neuropathy (475820290)Peripheral neuropathy (G62.9)ActiveconfirmedProblemHypertriglyceridemia (575192888) Hypertriglyceridemia (E78.1)ActiveconfirmedProblemDisplacement of lumbar intervertebral disc without myelopathy (08243169)Lumbar herniated disc (M51.26) ActiveconfirmedProblemHyperglycemia due to type 2 diabetes mellitus (394652634244136)Diabetes mellitus with hyperglycemia (E11.65)Activeconfirmed ProblemCortical blindness (45740150)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)Activeconfirmed ProblemCerebral infarction (545806905)CVA (cerebrovascular accident) (I63.9) ActiveconfirmedProblemPeripheral circulatory disorder associated with diabetes mellitus (096845487)Controlled diabetes mellitus with circulatory complication (E11.59)ActiveconfirmedProblemEssential hypertension (91806310)BP (high blood pressure) (I10)ActiveconfirmedProblemStable angina due to coronary arteriosclerosis (disorder) (45133206426510274)Atherosclerosis of coronary artery of [place] heart with stable angina pectoris, unspecified vessel or lesion type (I25.118)ActiveconfirmedProblemHuman immunodeficiency virus infection (61254036)History of HIV infection (B20)ActiveconfirmedProblemChronic kidney disease stage 3B (disorder) (149225989)Chronic kidney disease, stage 3b (N18.32) Activeconfirmed Vital Signs Blood pressure diastolic 64 mm Hg 06/09/2025 Dpjbvj20 in06/09/2025lood pressure lpxoripb657 mm Hg06/09/20256332Dpqiyl292.4 lbs 06/09/2025BMI29.9 kg/m206/09/2025 Encounters Encounter Location Date Provider Diagnosis [facility] [address] [place] [address] 10/18/2024 Miguel Abhinavy [facility] [place] [address] 09/11/2024oug HoyOther thrombophilia D68.69 ; Atherosclerosis of coronary artery of [place] heart with stable angina pectoris, unspecified vessel or lesion type I25.118 ; Chronic systolic (congestive) heart failure I50.22 ; Diabetes mellitus with hyperglycemia E11.65 and Lumbar herniated disc M51.[address] [place] [address]/ Miguel HoyParoxysmal a-fib I48.0 ; Chronic systolic (congestive) heart failure I50.22 ; Diabetes mellitus with hyperglycemia E11.65 ; Chronic kidney disease, stage 3b N18.32 ; Hyperlipemia E78.5 ; Hypothyroidism E03.9 ; Peripheral neuropathy G62.9 ; Lumbar herniated disc M51.26 ; Ischemic cardiomyopathy I25.5 and [facility] [place] [address]/Doug HoyHypothyroidism E03.9 ; Lumbar herniated disc M51.26 ; Hyperlipemia E78.5 and Diabetes mellitus with hyperglycemia E11.65[facility] [place] [address]Doug HoyControlled diabetes mellitus with circulatory complication E11.59 ; Hypothyroidism E03.9 ; Paroxysmal a-fib I48.0 and Diabetes mellitus with hyperglycemia E11.65 Assessments Encounter Date Diagnosis (ICD Code) Assessment Notes Treatment Notes Treatment Clinical Notes Section Notes 09/11/2024 Other thrombophilia (ICD-10 - D6 8.69) 09/11/2024therosclerosis of coronary artery of [place] heart with stable angina pectoris, unspecified vessel or lesion type (ICD-10 - I25.118)12/11/2024 Paroxysmal a-fib (ICD-10 - I48.0)Rate /16/2025Hypothyroidism (ICD-10 - E03.9)[place] bs03/10/2025Lumbar herniated disc (ICD-10 - M51.26)pain kammwxbzgg86/15/2025ontrolled diabetes mellitus with circulatory complication (ICD-10 - E11.59)Well bccwkrlmin75/15/2025Hypothyroidism (ICD-10 - E03.9) 06/09/2025Paroxysmal a-fib (ICD-10 - I48.0)03/10/2025Hyperlipemia (ICD-10 - E78.5)on chol5Chronic systolic (congestive) heart failure (ICD-10 - I50.22)no DOE14Chronic systolic (congestive) heart failure (ICD-10 - I50.22)4Diabetes mellitus with hyperglycemia (ICD-10 - E11.65) 12/11/2024Diabetes mellitus with hyperglycemia (ICD-10 - E11.65)ecellent control - last dkqnp5e 7.Diabetes mellitus with hyperglycemia (ICD-10 - E11.65)stabel with meds06/09/2025Diabetes mellitus with hyperglycemia (ICD-10 - E11.65)12/11/2024hronic kidney disease, stage 3b (ICD-10 - N18.32)stable on labs12/11/2024Hyperlipemia (ICD-10 - E78.5)09/11/2024Lumbar herniated disc (ICD- 10 - M51.26)inc dose ebwyft28/19/2025Hypothyroidism (ICD-10 - E03.9)12/11/2024 Peripheral neuropathy (ICD-10 - G62.9)12/11/2024Lumbar herniated disc (ICD-10 - M51.26)12/11/2024Ischemic cardiomyopathy (ICD-10 - I25.5)12/11/2024Pure hyperglyceridemia (ICD-10 - E78.1) Plan Of Treatment Pending Test Test Name Order Date MRI LSPINE WO CON 06/19/2024 XR LSPINE MIN 4 VIEWS 06/19/2024 Next Appt Details Provider Name:Miguel Murillo, 11:00:00 AM, [address] [facility], [place], [address], Insurance Providers Payer Name Payer Address Payer Phone Subscriber Number Group Number Insured Name Patient Relationship to Insured Coverage Start Date Coverage End Date [employer] AD[employer] PLAN [address] [place] [address] [phone] [id number] [id number] Contreras Self - patient is the [...] 11/2006 Umbilical Herniorrhaphy with mesh 11/2009 [facility] 2005 Heart Cath 03/2022 Hospitalization History Reason Date(Month/Year) Viral Infection 02/2023
--- OUTSIDE RECORDS SUMMARY | 2025-07-23 08:13 | XMS_ITS | Clinical Summary ---
Author Organization [employer] tem Address [id number] [place] [address] Care Team Providers Care Manager Real Estate Name Role Phone Unavailable Primary Care Provider Unavailabl e Immunizations ImmunizationAdministration DatesNext DueCOVID-19, mRNA, LNP-S, PF, 100mcg/0.5mL Dose01/19/2021,12/22/2020 Social History Tobacco UseTypesPacks/DayYears UsedDateSmoking Tobacco: Never AssessedChildcare AnswerDate FhprbsrkRngiuxvuzWfkeoqm49/12/2019EmploymentAnswerDate Recorded TpvxrvzafiSyenlst48/12/2019Sex and Gender InformationValueDate RecordedSex Assigned at BirthNot on fileLegal YhmAnln4604/29/2015 5:42 PM EDTGender Identity Not on fileSexual OrientationNot on file Plan of Treatment Health MaintenanceDue DateLast DoneCommentsDepression Menbxignu16/20/1965Tobacco Honnwkesb89/20/1965Adult BMI Lwaerddlr79/20/1971Zoster (Shingles) Vaccine (1 of 2)2003Fall Risk Lqbnhnzpd94/20/2018DTaP,Tdap and Td Vaccines (2 - Td or Tdap)/12/2010COVID-19 Vaccine (3 - season)2025 01/19/2021, 12/22/2020Influenza Cubhdce85/, 07/03/2018, 06/27/2017, Additional history exists Medical Devices Not on file Insurance
--- OUTSIDE RECORDS SUMMARY | 2025-07-23 08:14 | XMS_ITS | CCD ---
Author Organization [facility] Care Team Providers Care Java Portal Developer Name Role Phone JONAS SHEETS Primary Care [...] Unavailable HOY, DR MCDANIEL Primary Care Unavailable ROCKY FACE, DR BRIAN Cuevas Consulting Unavailable MOUKARBEL, DR JOHANSEN Admitting Unavailable MOUKARBEL, DR JOHANSEN Consulting Unavailable Jose BECKER Attending Unavailable Jonas Sheets Referring Unavailable Jose BECKER Attending Unavailable Jonas Sheets Referring Unavailable Jonas Sheets Primary Care Physician WILI KAUR Attending Unavailable SHERRON, ARLEN Referring Unavailable GEORGESCUSUSHILA Attending Unavailable SHERRON, ARLEN Referring Unavailable SHERRON, ARLEN Referring Unavailable SHERRON, ARLEN Referring Unavailable SHERRON, ARLEN Referring Unavailable GEORGESCUSUSHILA Attending Unavailable SHERRON, ARLEN Referring Unavailable SHERRON, ARLEN Referring Unavailable SHERRON, ARLEN Referring Unavailable SHERRON, ARLEN Referring Unavailable SHERRON, ARLEN Referring Unavailable SHERRON, ARLEN Referring Unavailable SHERRON, ARLEN Referring Unavailable SHERRON, ARLEN Referring Unavailable TWIN GUILLEN Attending Unavailable Allergies Allergy ClassificationReported Allergen(s)Allergy TypeDate of OnsetReaction(s) Facility (3 sources)liothyronineDrug Bmydarg38-25-4289Eyy [facility] Repository (1 source)StavudineDrug Djuhylz66-44-3105Oca [facility] Repository (2 sources)Ciprofloxacin; Translations: [Cipro]Drug AllergyUnknown (qualifier value)[facility] Repository (3 sources)Stavudine; Translations: [stavudine]Drug Hwjjqfc79-15-0204hqbjjat [facility] Repository (2 sources)Sulfonamides (Antibiotic); Translations: [sulfa drugs]Propensity to adverse reactions (disorder)Unknown (qualifier value)[facility] Repository (3 sources)Ticlopidine; Translations: [ticlopidine]Drug Djfxhxp23-93-6800 Eruption of skin (disorder)[facility] Repository (1 source)Ciprofloxacin; Translations: [CIPROFLOXACIN]Drug Jhbjlup61-96-5679 [facility] Repository (1 source)Sulfonamides (Antibiotic); Translations: [SULFA (SULFONAMIDE ANTIBIOTICS)]Propensity to adverse reactions to drug (disorder)04-25-2023 [facility] Repository Medications Current Medications MedicationDrug Class(es)DatesSig (Normalized)Sig (Original)apixaban 2.5 mg oral tablet (1 source)Factor Xa InhibitorStart: 53-77-6492hjhg 1 tablet by mouth once daily Eliquis 2.5 mg oral tablet 2.5 mg = 1 tab(s), Oral, Daily, Refills(s) 0 Start Date: 02/08/23 Status:Ordered Repeat number: 1cobicistat 150 mg / darunavir 800 mg oral tablet (1 source)Protease Inhibitor, Cytochrome P450 3A InhibitorStart: 26-85-1028xzzk 1 tablet by mouth once dailyPrezcobix 800 mg-150 mg oral tablet 1 tab(s), Oral, Daily, Refill(s) 0 Start Date: 02/08/23 Status: Ordered Repeat number: 1 dolutegravir 50 mg oral tablet (1 source)Human Immunodeficiency Virus Integrase Strand Transfer InhibitorStart: 89-66-7494zhqn 1 tablet by mouth once dailyTivicay 50 mg oral tablet 50 mg = 1 tab(s), Oral, Daily, Refills(s) 0 Start Date: 02/08/23 Status: Ordered Repeat number: 1empagliflozin 10 mg oral tablet (1 source)Sodium-Glucose Cotransporter 2 InhibitorStart: 05-66-6088idcy 1 tablet by mouth once daily in the morningJardiance 10 mg oral tablet 10 mg = 1 tab(s), Oral, qAM, Refills(s) 0 Start Date: 02/08/23 Status: Ordered Repeat number: 1Fish Oils (1 source)Start: 72-97-6077dqsq 1 capsule by mouth three times dailyFish Oil 1200 mg oral capsule 1,200 mg = 1 cap(s), Oral, TID, Refills(s) 0 Start Date: 06/17/25 Status: Ordered Repeat number: 124 hr isosorbide mononitrate 30 mg extended release oral tablet (1 source)Nitrate VasodilatorStart: 57-28-5555lywh 1 tablet by mouth once daily in the morningisosorbide mononitrate 30 mg ER Tab 30 mg = 1 tab(s), Oral, qAM, Refills(s) 0 Start Date: 02/08/23 Status: Ordered Repeat number: 1levothyroxine sodium 0.05 mg oral tablet (1 source)l-ThyroxineStart: 03-86-5851xlqf 1 tablet by mouth once daily levothyroxine 50 mcg (0.05 mg) Tab 50 mcg = 1 tab(s), Oral, Daily, Refills(s) 0 Start Date: 02/08/23Status: Ordered Repeat number: 1metFORMIN hydrochloride 1000 mg oral tablet (1 source)BiguanideStart: 32-25-8998whub 1 tablet by mouth twice dailymetformin 1000 mg Tab 1,000 mg = 1 tab(s), Oral, BID, Refills(s) 0 Start Date: 02/08/23 Status: Ordered Repeat number: 124 hr metoprolol succinate 50 mg extended release oral tablet (1 source)beta-Adrenergic BlockerStart: 29-47-5285boojkpuevx 50 mg ER Tab 25 mg = 0.5 tab(s), Oral, Daily, Refills(s) 0 Start Date: 02/08/23 Status: Ordered Repeat number: 1pregabalin 100 mg oral capsule (1 source)Start: 35-16-0270nlkp 1 capsule by mouth twice dailyLyrica 100 mg Cap 100 mg = 1 cap(s), Oral, BID, Refills(s) 0 Start Date: 06/17/25 Status: Ordered Repeat number: 1rosuvastatin calcium 20 mg oral tablet (1 source)HMG-CoA Reductase InhibitorStart: 14-60-9112ipvg 1 tablet by mouth once dailyCrestor 20 mg Tab 20 mg = 1 tab(s), Oral, Daily, Refills(s) 0 Start Date: 02/08/23 Status: Ordered Repeat number: 1tamsulosin hydrochloride 0.4 mg oral capsule (1 source)alpha-Adrenergic BlockerStart: 79-65-8260hexv 1 capsule by mouth once dailyFlomax 0.4 mg Cap 0.4 mg = 1 cap(s), Oral, Daily, Refills(s) 0 Start Date: 02/08/23 Status: Ordered Repeat number: 1traMADol hydrochloride 50 mg oral tablet (1 source)Opioid AgonistStart: 09-45-1211Karhvy 50 mg Tab as directed, Refills(s) 0 Start Date: 02/08/23 Status: Ordered Repeat number: 1 Problems Active Problems Problem ClassificationProblemDateDocumented DateEpisodic/ChronicAbdominal pain (4 sources)Unspecified abdominal pain; Translations: [UNSPECIFIED ABDOMINAL PAIN]Onset: 26-11-0531CrkaabngDbqwrnlbs and vision defects (2 sources)Legal blindness, as defined in [place]; Translations: [Legal blindness, as defined in [place]]Onset: 93-94-5485PadtthdQcuqiqo dysrhythmias (13 sources)Unspecified atrial flutter; Translations: [Junctional premature depolarization]Onset: 24-71-7499YtoiwofYcsrflj kidney disease (1 source)Chronic kidney disease stage 3Y82-83-3682AiccwivOrjqvnz kidney disease (2 sources)Chronic kidney disease; Translations: [Chronic kidney disease, stage 3 unspecified]Onset: 81-32-7271Sczxqahjgpm and hemorrhagic disorders (1 source)Scyjdvivjoerg81-59-7867GduvmpaLhbzwisgdfdh of device; implant or graft (2 sources)Atherosclerosis of coronary artery bypass graft(s), unspecified, with other forms of angina pectoris; Translations: [Atherosclerosis of coronary artery bypass graft(s), unspecified, with other forms of angina pectoris]Onset: 16-22-7622XtbfwteXzmzcwlegu heart failure; nonhypertensive (3 sources)Chronic systolic heart failure; Translations: [Chronic systolic (congestive) heart failure]Onset: 747762-04-9367AryayxpEsskfylf atherosclerosis and other heart disease (5 sources)Atherosclerotic heart disease of [place] coronary artery without angina pectoris; Translations: [Oldmyocardial infarction]Onset: 12-29-2021 48-43-7575SolmzhwTmkbmocvas and other anemia (1 source)Anemia, unspecified; Translations: [ANEMIA UNSPECIFIED]Onset: 50-09-7488SbhorqznJzbffwmxzh and other anemia (1 source)Segwdc55-41-5600VvycypcaVxvxueer mellitus with complications (2 sources)Type 2 diabetes mellitus with unspecified complications; Translations: [Type 2 diabetes mellitus with unspecified complications]Onset: 52-12-0834MsfjkibJxthgmoo mellitus without complication (3 sources)Diabetes mellitus; Translations: [Type 2 diabetes mellitus without complications]Onset: 959708-72-6597CtspqsuDpvoiljaz of lipid metabolism (4 sources)Hyperlipidemia; Translations: [Hypertriglyceridemia]Onset: 11-05-2024 11-59-9759OekwgbxQxncrdurv hypertension (4 sources)Essential (primary) hypertension; Translations: [Hypertensive disorder]Onset: 300210-03-2756GeqagtjGEP infection (6 sources)Asymptomatic human immunodeficiency virus [HIV] infection status; Translations: [Human immunodeficiency virus infection]Onset: 12-29-2021 25-44-2600SygcufbLvjdwymfdos of prostate (2 sources)Benign prostatic hyperplasia without lower urinary tract symptoms; Translations: [Benign prostatic hyperplasia]Onset: hronic Other and unspecified benign neoplasm (3 sources)History of polyp of colon; Translations: [Personal history of adenomatous and serrated colon polyps]Onset: 63-50-2281TaewuvedVntis circulatory disease (1 source)History of cerebrovascular eewtqiky05-95-1345CvdysznvKdnmt eye disorders (1 source)Cortical yqvektsth29-16-7986VdzniakGipwg nervous system disorders (1 source)Cqjyibwdmebqlx85-52-5294XrmuwxiYwdci nutritional; endocrine; and metabolic disorders (1 source)Body mass index 30+ - fwfoinl55-39-2208QppmuypLfheg nutritional; endocrine; and metabolic disorders (1 source)Obesity caused by energy jkevhomye24-83-2356KpzvuarWvybw nutritional; endocrine; and metabolic disorders (1 source)Abnormal weight loss; Translations: [ABNORMAL WEIGHT LOSS]Onset: 61-10-9094SeqpdnlrDnvvk screening for suspected conditions (not mental disorders or infectious disease) (4 sources)Other abnormal tumor markers; Translations: [Encounter for screening for malignant neoplasm of prostate]Onset: 05-62-0142AfefnvknJcxtrwqbfg and visceral atherosclerosis (2 sources)Peripheral vascular disease, unspecified; Translations: [Peripheral vascular disease, unspecified]Onset: 66-41-3066GlqxmjnUmqcwfek codes; unclassified (1 source)Disorientation, unspecified; Translations: [DISORIENTATION UNSPECIFIED]Onset: 70-85-6399LwdbrzzpPfvvucj disorders (4 sources)Hypothyroidism, unspecified; Translations: [Hypothyroidism]Onset: 909610-51-9381OqwcxxpRviunbdfyxlp (1 source)CONTACT W/AND (SUSP) EXPOS COVID-19; Translations: [CONTACT W/AND (SUSP) EXPOS COVID-19]Onset: 04-05-2022 Past or Other Problems Problem ClassificationProblemDateDocumented DateEpisodic/ChronicAcute and unspecified renal failure (1 source)Acute kidney failure, unspecified; Translations: [ACUTE KIDNEY FAILURE UNSPECIFIED]Onset: 54-05-0677XjnicynrYpguqef dysrhythmias (3 sources)Bradycardia; Translations: [Palpitations]Onset: 421856-43-7965 EpisodicCoronary atherosclerosis and other heart disease (1 source)Presence of aortocoronary bypass graft; Translations: [PRESENCE AORTOCORONARY BYPASS GRAFT]Onset: 89-27-7838SlzotqkzJbliagu and fatigue (2 sources)Other fatigue; Translations: [Other fatigue]Onset: 57-52-2786Utjftwns Other aftercare (1 source)terminal system operator (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) use of aspirin; Translations: [ONLINE COMMUNICATIONS MANAGER CURRENT USE OF ASPIRIN]Onset: 78-81-0969WmzkrgmnKauyn aftercare (1 source)terminal system operator (current) use of 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/antiplatelets; Translations: [HALFWAY ANTITHROMBOT/ANTIPLATLETS]Onset: 52-28-1009Cqidjwxo Other aftercare (1 source)intermediate (current) use of oral hypoglycemic drugs; Translations: [ONLINE COMMUNICATIONS MANAGER USE ORAL HYPOGLYCEMIC DX]Onset: 04-03-1422JujgicqtNlqaj aftercare (1 source)Other exterminator helper (current) drug therapy; Translations: [OTH ONLINE COMMUNICATIONS MANAGER CURRENT DRUG THERAPY]Onset: 40-85-7418RnsxysntOcyll circulatory disease (1 source)Personal history of transient ischemic attack (TIA), and cerebral infarction without residual deficits; Translations: [PERS HX TIA AND CI NO RESID DEFICIT]Onset: 38-19-0164QrxjgahtQyfvx circulatory disease (2 sources)Personal history of other diseases of the circulatory system; Translations: [Personal history of other diseases of the circulatory system] Onset: 08-84-0685LohkmdtoKezga hematologic conditions (1 source)Other specified abnormalities of plasma proteins; Translations: [OTH SPEC ABNORM PLASMA PROTEINS]Onset: 91-23-8635FeidvkriNvycs lower respiratory disease (4 sources)Other forms of dyspnea; Translations: [OTHER FORMS OF DYSPNEA]Onset: 29-71-6295YykiifohDuxjc lower respiratory disease (3 sources)Shortness of breath; Translations: [SHORTNESS OF BREATH]Onset: 41-14-9796XyjxdphcIqcflzey codes; unclassified (1 source)Acquired absence of other specified parts of digestive tract; Translations: [ACQ ABSENCE OTH PART DIGESTV TRACT]Onset: 43-12-1752Szcfzthf Residual codes; unclassified (2 sources)Other specified postprocedural states; Translations: [Other specified postprocedural states]Onset: 79-79-0014Rkkanhra Results Test NameValueInterpretationReference RangeFacilityOrders Onlyon 07-05-2025 Orders [id number] Parish Contreras 1955 M Date Provider Department Center 07/05/2025 [facility] Family History Problem Relation Age of Onset Heart attack Father Other Sister Heart attack Brother Other Brother Family Status - Relation Status Age at Mother Father Sister BrotherNormalUniversity of Adventhealth Central TexasAmbulatory Visit Summaryon 83-96-1257Hcpkvjpiau Visit SummaryAmbulatory Visit Summary PARISH CONTRERAS :1955 [...] signed up for this yet, please contact [employer] at [phone] to get signed up today. Language Information Language assistance services are available as needed. [facility]36on 05/13/25 HIV Quantitative RNA Date Value 05/13/2025 <30 copies/mL 05/10/2022 DETECTED BUT <30 COPIES/ML CD4 Abs (cells/mm3) Date Value 05/13/2025 539 Creatinine (mg/dL) Date Value 05/13/2025 1.80 (H) Income on file: YesNormalUniversUC West Chester HospitalRefillon 06-30-2025 [id number] Parish Contreras 1955 M Date Provider Department Center 06/30/2025 SUSHILA HAND [facility] Len Heal Family History Problem Relation Age of Onset Heart attack Father Other Sister Heart attack Brother Other Brother Family Status - Relation Status Age at Mother Father Sister Brother Reason for Visit and Comments: Med Refill [[id number]][facility] AdministrationOrders Onlyon 46-34-8390Woolzp [id number] Parish Contreras 1955 M Date Provider Department Center 06/10/2025 325-[facility] Family History Problem Relation Age of Onset Heart attack Father Other Sister Heart attack Brother Other Brother Family Status - Relation Status Age at Mother Father Sister BrotherNormalUniversity of Adventhealth Central TexasCBC WITH AUTO DIFFERENTIALon 26-14-2011Vnoedbvqs (Bld) [#/Vol]0.01 10*3/uLNormal0.00-0.20UnMercy Health Willard HospitalComment on above:Performed By: #### [id number] #### [facility] ([facility]) [address] [place], [place] [address]Gluexraci/100 WBC (Bld)0.2 %Normal0.0-1.0UnMercy Health Willard HospitalComment on above:Performed By: #### [id number] #### [facility] ([facility]) [address] [place], [place] [address]Bwegdpcbtvb (Bld) [#/Vol]0.10 10*3/uLNormal0.00-0.50UnMercy Health Willard HospitalComment on above:Performed By: #### [id number] #### [facility] ([facility]) [address] [place], [place] [address]Wnlwyapvsnh/100 WBC (Bld)2.0 %Normal0.0-6.0UnMercy Health Willard HospitalComment on above:Performed By: #### [id number] #### [facility] ([facility]) [address] [place], [place] [address]Npewjdjmyjc distribution width (RBC) [Ratio]13.5 %Normal 11.5-15.0UnMercy Health Willard HospitalComment on above:Performed By: #### [id number] #### [facility] ([facility]) [address] [facility], [place] [address]ONCKVLHQTAZ MEAN CORPUSCULAR HEMOGLOBIN CONCENTRATION (G/DL) BY KWAVSFSET82.6 g/xGAeguls59.0-35.0UnMercy Health Willard HospitalComment on above:Performed By: #### [id number] #### [facility] ([facility]) [address] [place], [place] [address]Knzefklpps (Bld) [Volume fraction]47.6 %Qlvlti19.0-50.0 [facility] CenterComment on above:Performed By: #### [id number] #### [facility] ([facility]) [address] [place] [address]Dptvxqdbxx (Bld) [Mass/Vol]16.0 g/aREmbvfj92.0-17.0UnMercy Health Willard HospitalComment on above:Performed By: #### [id number] #### [facility] ([facility]) [address] [place] [place] [address]Qywaambs granulocytes (Bld) [#/Vol]0.01 10*3/uLNormal0.00-0.20 [facility] CenterComment on above:Performed By: #### [id number] #### [facility] ([facility]) [address] [place] [address]Hxelrepx granulocytes/100 WBC (Bld)0.2 %Normal0.0-1.0UnMercy Health Willard HospitalComment on above:Performed By: #### [id number] #### [facility] ([facility]) [address] [place] [place] [address]ENAXWXXU PLATELET FRACTION %2.2 %Normal0.8-6.3UnMercy Health Willard HospitalComment on above:Performed By: #### [id number] #### [facility] ([facility]) [address] [place] [address]Jozpwuglaby (Bld) [#/Vol]1.64 10*3/uLNormal1.20-4.00UnMercy Health Willard HospitalComment on above:Performed By: #### [id number] #### [facility] ([facility]) [address] [place] [address]Hltcyrcyefp/100 WBC (Bld)33.4 %Gaahco04.0-45.0UnMercy Health Willard HospitalComment on above:Performed By: #### [id number] #### [facility] ([facility]) [address] [place] [address]SRL (RBC) [Entitic mass]30.4 psRayrjs66.0-33.0UnMercy Health Willard HospitalComment on above:Performed By: #### [id number] #### [facility] ([facility]) [address] [place] [address]RIY (RBC) [Entitic vol]90.3 yQTprgkg36.0-98.0UnMercy Health Willard HospitalComment on above:Performed By: #### [id number] #### [facility] ([facility]) [address] [place], [place] [address]Lrzhknxgj (Bld) [#/Vol]0.41 10*3/uLNormal0.10-1.00UnMercy Health Willard HospitalComment on above:Performed By: #### [id number] #### [facility] ([facility]) [address] [place], [place] [address]Azvazkwoa/100 WBC (Bld)8.4 %Normal5.0-12.0UnMercy Health Willard HospitalComment on above:Performed By: #### [id number] #### [facility] ([facility]) [address] [place], [place] [address]Pysgpzixhbj (Bld) [#/Vol]2.74 10*3/uLNormal1.60-7.60UnMercy Health Willard HospitalComment on above:Performed By: #### [id number] #### [facility] ([facility]) [address] [place], [place] [address]Zabjycphudl/100 WBC (Bld)55.8 %Rhwvgc04.0-72.0UnMercy Health Willard HospitalComment on above:Performed By: #### [id number] #### [facility] ([facility]) [address] [place], [place] [address]SKBA (PER 100 WBCS) BY AUTOMATED COUNT0.0 %Ibygni2CuqvpfgmikMercy Health Willard HospitalComment on above:Performed By: #### [id number] #### [facility] ([facility]) [address] [place], [place] [address]HGGCWICSL (10*3/UL) IN BLOOD AUTOMATED [id number] 10*3/uLLow 150-400UnMercy Health Willard HospitalComment on above:Performed By: #### [id number] #### [facility] ([facility]) [address] [place] [address]PWZ (Bld) [#/Vol]5.27 10*6/uLNormal3.80-5.70UnMercy Health Willard HospitalComment on above:Performed By: #### [id number] #### [facility] ([facility]) [address] [place], [place] [address]RVX (Bld) [#/Vol]4.91 10*3/uLNormal4.00-10.60UnMercy Health Willard HospitalComment on above:Performed By: #### [id number] #### [facility] ([facility]) [address] [place], [place] [address]FWVCSUZZQ TRACHOMATIS AND NEISSERIA GONORRHEA, TMAon 05-13-2025 CHLAMYDIA TRACHOMATIS DNA PROBE (PRESENCE) IN UNSP SPECNegativeNormalNegative [facility] CenterComment on above:Result Comment: No Chlamydia trachomatis rRNA Detected. The Aptima Combo 2 Assay is a FDA approved target amplification nucleic acid probe test that utilizes target capture for the in vitro qualitative detection and differentiation of ribosomal RNA (rRNA)from Chlamydia trachomatis (CT) and/or Neisseria gonorrhoeae (GC) to aid the diagnosis of chlamydial and/or gonococcal urogenital disease using the [facility] [place] System. The Aptima Combo 2 Assay involves target capture, target amplification by Pollution Control Technician-Mediated Amplification (TMA), and the detection of the amplification products (amplicon) by the Hybridization Protection Assay (HPA). The internal process controls of the [facility] [place] System monitor the target capture, amplification, and detection steps of the assay, this is not intended to control for sampling adequacy.Performed By: #### [id number] ####[facility] ([facility])[address] [place], [place] [address]QMIJFRUNZ GONORRHOEAE DNA PROBE (PRESENCE) IN UNSP SPECNegativeNormalNegativeUnMercy Health Willard Hospital Comment on above:Result Comment: No Neisseria gonorrhoeae rRNA Detected. The Aptima Combo 2 Assay is a FDA approved target amplification nucleic acid probe test that utilizes target capture for the in vitro qualitative detection and differentiation of ribosomal RNA (rRNA)from Chlamydia trachomatis (CT) and/or Neisseria gonorrhoeae (GC) to aid the diagnosis of chlamydial and/or gonococcal urogenital disease using the [facility] [place] [facility]. The Aptima Combo 2 Assay involves target capture, target amplification by Pollution Control Technician-Mediated Amplification (TMA), and the detection of the amplification products (amplicon) by the Hybridization Protection Assay (HPA). The internal process controls of the [facility] [place] [facility] monitor the target capture, amplification, and detection steps of the assay, this is not intended to control for sampling adequacy.Performed By: #### [id number] ####[facility] ([facility])[address] [place], [place] [address]ZXUCYJFCDUSUL METABOLIC PANELon 52-86-6512Hsyxiiq [Mass/Vol]4.6 g/dLNormal3.5-5.7UnMercy Health Willard HospitalComment on above:Performed By: #### [id number] ####[facility] ([facility])[address] [place], [place] [address]WNL [Catalytic activity/Vol]63 U/L Gbgfse39-237RqvlpawjnnMercy Health Willard HospitalComment on above:Performed By: #### [id number] ####[facility] ([facility])[address] [place], [place] [address]LYB [Catalytic activity/Vol]13 U/LNormal7-52UnMercy Health Willard Hospital Comment on above:Performed By: #### [id number] ####[facility] ([facility])[address] [place], [place] [address]Zjjuo gap [Moles/Vol]10 mmol/LNormal7-20UnMercy Health Willard HospitalComment on above:Performed By: #### [id number] ####[facility] ([facility])[address] [place], [place] [address]AFO [Catalytic activity/Vol]14 U/BSpgcxl85-79AptfeknhbkMercy Health Willard HospitalComment on above:Performed By: #### [id number] ####[facility] ([facility])[address] [place], [place] [address]Onumepeyz [Mass/Vol]0.6 mg/dLNormal0.3-1.0UnMercy Health Willard HospitalComment on above:Performed By: #### [id number] ####[facility] ([facility])[address] [place], [place] [address]Zhpurtd [Mass/Vol]9.7 mg/dLNormal 8.6-10.3UnMercy Health Willard HospitalComment on above:Performed By: #### [id number] ####[facility] ([facility])[address] [place], [place] [address]Xwynxtur [Moles/Vol]107 mmol/YEbkyuz87-783TylwbcbwldMercy Health Willard HospitalComment on above:Performed By: #### [id number] ####[facility] ([facility])[address] [place], [place] [address]RZ6 [Moles/Vol]26 mmol/EBiahqw03-65PjqhkgrcxhMercy Health Willard HospitalComment on above:Performed By: #### [id number] ####[facility] ([facility])[address] [place], [place] [address]Qxtilfpwih [Mass/Vol]1.80 mg/dLHigh 0.60-1.30UnMercy Health Willard HospitalComment on above:Performed By: #### [id number] ####[facility] ([facility])[address] [place], [place] [address]PPHDFHCRSX FILTRATION RATE ML/MIN/1.73 SQ M.HUXEMWBBH60.6 mL/min/1.73m*2Low>60.0UnMercy Health Willard HospitalComment on above:Result Comment: [facility]???s estimated glomerular filtration rate (eGFR) will no [...] group of individuals. Performed By: #### [id number] ####[facility] ([facility])[address] [place], [place] [address]Suirfcj [Mass/Vol]114 mg/fENnpa70-604BanialpwfaMercy Health Willard HospitalComment on above:Performed By: #### [id number] ####[facility] ([facility])[address] [place], [place] [address]Ouolmzhea [Moles/Vol]4.8 mmol/LNormal 3.5-5.1UnMercy Health Willard HospitalComment on above:Performed By: #### [id number] ####[facility] ([facility])[address] [place], [place] [address]Wzwjxbu [Mass/Vol]7.6 g/dLNormal6.0-8.3UnMercy Health Willard HospitalComment on above:Performed By: #### [id number] ####[facility] ([facility])[address] [place], [place] [address]Cipijx [Moles/Vol]138 mmol/VXvoxgc060-160XvhxtcubnnMercy Health Willard HospitalComment on above:Performed By: #### [id number] ####[facility] ([facility])[address] [place], [place] [address]Awor nitrogen [Mass/Vol]30 mg/dLHigh 7-25UnMercy Health Willard HospitalComment on above:Performed By: #### [id number] ####[facility] ([facility])[address] [place], [place] [address]RYLH NITROGEN/CREATININE (MASS RATIO) IN SER/PLAS16.7NormalUniversUC West Chester HospitalComment on above:Performed By: #### [id number] ####[facility] ([facility])[address] [place], [place] [address]WGHIHZFMII A1Con 34-70-0984Cmsdnmz [Mass/Vol]163 mg/dLNormalUniWood County HospitalComment on above: Performed By: #### [id number] #### [facility] ([facility]) [address] [place] [address]UjB0r (Bld) [Mass fraction]7.3 %High4.0-6.0UnMercy Health Willard HospitalComment on above:Performed By: #### [id number] #### [facility] ([facility]) [address] [place], [place] [address]Vwaoom Visiton 64-21-7196Cpwgaf-up [id number] Parish Contreras 1955 M Date Provider Department [place] 05/13/2025 Aubrey-SUSHILA LUCERO [facility] Len Heal Family History Problem Relation Age of Onset Heart attack Father Other Sister Heart attack Brother Other Brother Family Status - Relation Status Age at Mother Father Sister Brother Level of Service:45976 AL OFFICE/OUTPATIENT ESTABLISHED MOD MDM 30 MIN Reason for Visit and Comments: Health Maintenance [619] - Med Management [[id number]]NormalUnMercy Health Willard HospitalT CELL SUBSET ANALYSISon 91-19-1622CG195.50 %Tvftke59.00-90.00UnMercy Health Willard HospitalComment on above:Performed By: #### [id number] #### [facility] ([facility]) [address] [place] [place], [place] [address]FC0 UGNRMDTX4224 cells/xj6Vscmmb751-4735SwnpcoiwptMercy Health Willard HospitalComment on above:Performed By: #### [id number] #### [facility] ([facility] [address] [place], [place] [address]PX862.85 %Low40.00-70.00UnMercy Health Willard Hospital Comment on above:Performed By: #### [id number] #### [facility] ([facility] [address] [place], [place] [address]GU4 XIMXCWMX532 cells/xr5Spryjq517-5347CdcidaqhknMercy Health Willard HospitalComment on above:Performed By: #### [id number] #### [facility] ([facility]) [address] [facility] [place], [place] [address]BU2:CD80.98Low1.00-4.00UnMercy Health Willard Hospital Comment on above:Performed By: #### [id number] #### [facility] ([facility]) [address] [place] [address]BH736.39 %Lrobyn83.00-40.00[facility] Comment on above:Performed By: #### [id number] #### [facility] ([facility]) [address] [place] [address]TP5 JBIHEYNE672 cells/xd7Cubdsa605-121KtsjppltvxMercy Health Willard HospitalComment on above:Performed By: #### [id number] #### [facility] ([facility]) [address] [place] [address]Jezsom Onlyon 03-23-1291Yxwixk [id number] Parihs Contreras 1955 M Date Provider Department Center 05/08/2025 Julissa-[facility] HeartVAS Family History Problem Relation Age of Onset Heart attack Father Other Sister Heart attack Brother Other Brother Family Status - Relation Status Age at Mother Father Sister BrotherNormalUAccess Hospital DaytonOrders Onlyon 81-17-2040Daghxl [id number] Parish Contreras 1955 M Date Provider Department Center 05/05/2025 172-MILLA BRUNO [facility]al Family History Problem Relation Age of Onset Heart attack Father Other Sister Heart attack Brother Other Brother Family Status - Relation Status Age at Mother Father Sister BrotherNormGrand Lake Joint Township District Memorial HospitalRefillon 98-55-9290Immblt [id number] Parish Contreras 1955 M Date Provider Department Center 05/05/2025 281-SUSHILA [facility]UC[facility] Heal Family History Problem Relation Age of Onset Heart attack Father Other Sister Heart attack Brother Other Brother Family Status - Relation Status Age at Mother Father Sister Brother Reason for Visit and Comments: Med Refill [[id number]]NormalUnMercy Health Willard Hospital36on MD Kassandra Vargas MA Very good lipids and AST ALT, continue current management and recheck in 6 months Phone call to patient advised patient of lab results per Dr. Guillen. Patient verbalized understanding.[facility]36on [id number] lab results from 04/11/2025: MD Kassandra Vargas MA Very good lipids and AST ALT, continue current management and recheck in 6 monthsNormalUniversity University Hospitals Geneva Medical CenterOffice Visiton 72-40-1363Remvhn- up [id number] Parish Contreras 1955 M Date Provider Department Center 04/17/2025 166-WILI KAUR BO Perez [facility] Family History Problem Relation Age of Onset Heart attack Father Other Sister Heart attack Brother Other Brother Family Status - Relation Status Age at Mother Father Sister Brother Level of Service:71287 AL OFFICE/OUTPATIENT ESTABLISHED MOD MDM 30 MIN Reason for Visit and Comments: Atrial Flutter [101] Coronary Artery Disease [187] Congestive Heart Failure [127] Hypertension [301412][facility]36on 05/13/25 11/05/24 HIV Quantitative RNA Date Value 11/05/2024 Comment: Not Detected 05/10/2022 DETECTED BUT <30 COPIES/ML CD4 Abs (cells/mm3) Date Value 11/05/2024 533 Creatinine (mg/dL) Date Value 11/05/2024 1.88 (H) Income on file: NoNormalUniversity Hospitals Beachwood Medical CenterRefillon 04-01-2025 [id number] Parish Contreras 1955 M Date Provider Department Center 04/01/2025 281-[facility] Family History Problem Relation Age of Onset Heart attack Father Other Sister Heart attack Brother Other Brother Family Status - Relation Status Age at Father Sister Brother Reason for Visit and Comments: Med Refill [[id number]][facility] [id number] Parish Contreras 1955 M Date Provider Department Center 04/01/2025 281-GEORGESCU, SUSHILA A [facility] INF Len Heal Family History Problem Relation Age of Onset Heart attack Father Other Sister Heart attack Brother Other Brother Family Status - Relation Status Age at Father Sister Brother Reason for Visit and Comments: Med Refill [[id number]][facility] AdministrationPatient Outreachon 90-55-1984Zwommuj [id number] Parish Contreras 1955 M Date Provider Department Center 03/18/2025 55346-JDGJKQF BR[facility]I [facility] Heal Family History Problem Relation Age of Onset Heart attack Father Other Sister Heart attack Brother Other Brother Family Status - Relation Status Age at Father Sister Brother Reason for Visit and Comments: eligibility 2024 [Other][facility] AdministrationRefillon [id number] Parish Contreras 1955 M Date Provider Department Center 02/10/2025 281-SUSHILA LUCERO A C INF Len Heal Family History Problem Relation Age of Onset Heart attack Father Other Sister Heart attack Brother Other Brother Family Status - Relation Status Age at Father Sister Brother Reason for Visit and Comments: Med Refill [[id number]][facility] AdministrationRefillon 01-13-2025 [id number] Parish Contreras 1955 M Date Provider Department Center 01/13/2025 281-SUSHILA LUCERO A C INF Len Heal Family History Problem Relation Age of Onset Heart attack Father Other Sister Heart attack Brother Other Brother Family Status - Relation Status Age at Father Sister Brother Reason for Visit and Comments: Med Refill [[id number]][facility] AdministrationRefillon 11-18-2024 [id number] Parish Contreras 1955 M Date Provider Department Center 11/18/2024 281-DARA LUCEROU A [facility] INF Len Heal Family History Problem Relation Age of Onset Heart attack Father Other Sister Heart attack Brother Other Brother Family Status - Relation Status Age at Father Sister Brother Reason for Visit and Comments: Med Refill [[id number]][facility]36on Regarding lab results from 11/05/2024: MD Kassandra [...] faxed to Dr. Sheets's office. Patient verbalized understanding.NormalUnMercy Health Willard HospitalCBC WITH AUTO DIFFERENTIALon 22-34-1891Ffmoyilet (Bld) [#/Vol]0.02 10*3/uLNormal0.00-0.20 [facility] CenterComment on above:Performed By: #### [id number] #### [facility] ([facility]) [address] [place], [place] [address]Kkeqyqgtw/100 WBC (Bld)0.4 %Normal0.0-1.0UnMercy Health Willard HospitalComment on above:Performed By: #### [id number] #### [facility] ([facility]) [address] [place], [place] [address]Wfxfmxwoyhr (Bld) [#/Vol]0.19 10*3/uLNormal0.00-0.50UnMercy Health Willard HospitalComment on above:Performed By: #### [id number] #### [facility] ([facility]) [address] [place], [place] [address]Hhacpvxcgjs/100 WBC (Bld)3.5 %Normal0.0-6.0UnMercy Health Willard HospitalComment on above:Performed By: #### [id number] #### [facility] ([facility]) [address] [place], [place] [address]Zcslhrkrqwa distribution width (RBC) [Ratio]12.8 %Normal 11.5-15.0UnMercy Health Willard HospitalComment on above:Performed By: #### [id number] #### [facility] ([facility]) [address] [place] [address]FPTHVKRWNTS MEAN CORPUSCULAR HEMOGLOBIN CONCENTRATION (G/DL) BY SSXHRIADL98.1 g/cWQkbood44.0-35.0UnMercy Health Willard HospitalComment on above:Performed By: #### [id number] #### [facility] ([facility]) [address] [place] [address]Mpfdwaxcva (Bld) [Volume fraction]49.2 %Xgqkfc56.0-55.0 [facility] CenterComment on above:Performed By: #### [id number] #### [facility] ([facility]) [address] [place] [address]Frntjzsqzo (Bld) [Mass/Vol]16.3 g/qLZkfllv14.0-17.0UnMercy Health Willard HospitalComment on above:Performed By: #### [id number] #### [facility] ([facility]) [address] [place] [address]Cmheysqu granulocytes (Bld) [#/Vol]0.01 10*3/uLNormal0.00-0.20 [facility] CenterComment on above:Performed By: #### [id number] #### [facility] ([facility]) [address] [place] [place] [address]Oykgujmr granulocytes/100 WBC (Bld)0.2 %Normal0.0-1.0UnMercy Health Willard HospitalComment on above:Performed By: #### [id number] #### [facility] ([facility]) [address] [place] [place] [address]NPZQIBHQ PLATELET FRACTION %1.6 %Normal0.8-6.3UnMercy Health Willard HospitalComment on above:Performed By: #### [id number] #### [facility] ([facility]) [address] [place], [place] [address]Fmqdplpoioa (Bld) [#/Vol]1.81 10*3/uLNormal1.20-4.00UnMercy Health Willard HospitalComment on above:Performed By: #### [id number] #### [facility] ([facility]) [address] [place] [place] [address]Ttlalveudpe/100 WBC (Bld)33.1 %Lfuexe83.0-45.0UnMercy Health Willard HospitalComment on above:Performed By: #### [id number] #### [facility] ([facility]) [address] [place], [place] [address]JZR (RBC) [Entitic mass]30.9 opNswoth30.0-33.0UnMercy Health Willard HospitalComment on above:Performed By: #### [id number] #### [facility] ([facility]) [address] [place], [place] [address]MPC (RBC) [Entitic vol]93.4 iUTrsyii88.0-98.0UnMercy Health Willard HospitalComment on above:Performed By: #### [id number] #### [facility] ([facility]) [address] [place], [place] [address]Bejjhnbxd (Bld) [#/Vol]0.41 10*3/uLNormal0.10-1.00UnMercy Health Willard HospitalComment on above:Performed By: #### [id number] #### [facility] ([facility]) [address] [place], [place] [address]Pqlnonfce/100 WBC (Bld)7.5 %Normal5.0-12.0UnMercy Health Willard HospitalComment on above:Performed By: #### [id number] #### [facility] ([facility]) [address] [place], [place] [address]Hdaeocyurjt (Bld) [#/Vol]3.03 10*3/uLNormal1.60-7.60UnMercy Health Willard HospitalComment on above:Performed By: #### [id number] #### [facility] ([facility]) [address] [place], [place] [address]Dgogtgxlwea/100 WBC (Bld)55.3 %Kvevpi38.0-72.0UnMercy Health Willard HospitalComment on above:Performed By: #### [id number] #### [facility] ([facility]) [address] [place] [address]AZJF (PER 100 WBCS) BY AUTOMATED COUNT0.0 %Cjnmvu2PelkimuyxeMercy Health Willard HospitalComment on above:Performed By: #### [id number] #### [facility] ([facility]) [address] [place] [address]ENJULJSGJ (10*3/UL) IN BLOOD AUTOMATED FUWDG464 10*3/uLLow 150-400UnMercy Health Willard HospitalComment on above:Performed By: #### [id number] #### [facility] ([facility]) [address] [place] [address]NUA (Bld) [#/Vol]5.27 10*6/uLNormal4.20-5.70UnMercy Health Willard HospitalComment on above:Performed By: #### [id number] #### [facility] ([facility]) [address] [place] [address]SUJ (Bld) [#/Vol]5.47 10*3/uLNormal4.00-10.60UnMercy Health Willard HospitalComment on above:Performed By: #### [id number] #### [facility] ([facility]) [address] [place] [address]NYXJFADUX TRACHOMATIS AND NEISSERIA GONORRHEA, TMAon 11-05-2024 CHLAMYDIA TRACHOMATIS DNA PROBE (PRESENCE) IN UNSP SPECNegativeNormalNegative [facility] CenterComment on above:Result Comment: No Chlamydia trachomatis rRNA Detected. The Aptima Combo 2 Assay is a FDA approved target amplification nucleic acid probe test that utilizes target capture for the in vitro qualitative detection and differentiation of ribosomal RNA (rRNA)from Chlamydia trachomatis (CT) and/or Neisseria gonorrhoeae (GC) to aid the diagnosis of chlamydial and/or gonococcal urogenital disease using the [employer] System. The Aptima Combo 2 Assay involves target capture, target amplification by Pollution Control Technician-Mediated Amplification (TMA), and the detection of the amplification products (amplicon) by the Hybridization Protection Assay (HPA). The internal process controls of the [employer] System monitor the target capture, amplification, and detection steps of the assay, this is not intended to control for sampling adequacy.Performed By: #### [id number] #### [facility] ([facility]) [address] [place], [place] [address]DJLUNDZRJ GONORRHOEAE DNA PROBE (PRESENCE) IN UNSP SPECNegative NormalNegativeUnMercy Health Willard HospitalComment on above:Result Comment: No Neisseria gonorrhoeae rRNA Detected. The Aptima Combo 2 Assay is a FDA approved target amplification nucleic acid probe test that utilizes target capture for the in vitro qualitative detection and differentiation of ribosomal RNA (rRNA)from Chlamydia trachomatis (CT) and/or Neisseria gonorrhoeae (GC) to aid the diagnosis of chlamydial and/or gonococcal urogenital disease using the [employer] [place] System. The Aptima Combo 2 Assay involves target capture, target amplification by Pollution Control Technician-Mediated Amplification (TMA), and the detection of the amplification products (amplicon) by the Hybridization Protection Assay (HPA). The internal process controls of the [employer] System monitor the target capture, amplification, and detection steps of the assay, this is not intended to control for sampling adequacy.Performed By: #### [id number] #### [facility] ([facility]) [address] [place], [place] [address]KDQWZDKIZHHLL METABOLIC PANELon 79-17-0938Bzxycop [Mass/Vol]4.6 g/dLNormal3.5-5.7UnMercy Health Willard HospitalComment on above:Performed By: #### [id number] #### [facility] ([facility]) [address] [place], [place] [address]SHL [Catalytic activity/Vol]66 U/HJbwybe34-430KgmosrfiyyMercy Health Willard HospitalComment on above:Performed By: #### [id number] #### [facility] ([facility]) [address] [place] [address]ESM [Catalytic activity/Vol]14 U/LNormal7-52UnMercy Health Willard HospitalComment on above:Performed By: #### [id number] #### [facility] ([facility]) [address] [place], [place] [address]Qbesm gap [Moles/Vol]12 mmol/LNormal7-20UnMercy Health Willard HospitalComment on above:Performed By: #### [id number] #### [facility] ([facility]) [address] [place], [place] [address]FZU [Catalytic activity/Vol]15 U/GEyftkv07-65AymycqfdksMercy Health Willard HospitalComment on above:Performed By: #### [id number] #### [facility] ([facility]) [address] [place], [place] [address]Idirlavex [Mass/Vol]0.6 mg/dLNormal0.3-1.0UnMercy Health Willard HospitalComment on above:Performed By: #### [id number] #### [facility] ([facility]) [address] [place], [place] [address]Uanndyr [Mass/Vol]9.7 mg/dLNormal8.6-10.3UnMercy Health Willard HospitalComment on above:Performed By: #### [id number] #### [facility] ([facility]) [address] [place], [place] [address]Dcazumjj [Moles/Vol]105 mmol/BBfgwah47-370TeyacpccscMercy Health Willard HospitalComment on above:Performed By: #### [id number] #### [facility] ([facility]) [address] [place], [place] [address]KG9 [Moles/Vol]27 mmol/APuqkdh93-19GpoizceiwdMercy Health Willard HospitalComment on above:Performed By: #### [id number] #### [facility] ([facility]) [address] [place], [place] [address]Cvybwdijyz [Mass/Vol]1.88 mg/dLHigh0.70-1.30UnMercy Health Willard HospitalComment on above:Performed By: #### [id number] #### [facility] ([facility]) [address] [place], [place] [address]GRKZOJPRIE FILTRATION RATE ML/MIN/1.73 SQ M.JKCXVADOG12.7 mL/min/1.73m*2Low>60.0UnMercy Health Willard HospitalComment on above:Result Comment: [facility]???s estimated glomerular filtration rate (eGFR) will no [...] group of individuals.Performed By: #### [id number] #### [facility] ([facility]) [address] [place], [place] [address]Huqqefl [Mass/Vol]112 mg/dELdmg20-289YyjyhkpbcpMercy Health Willard HospitalComment on above:Performed By: #### [id number] #### [facility] ([facility]) [address] [place], [place] [address]Kpbpkicpb [Moles/Vol]4.5 mmol/LNormal3.5-5.1UnMercy Health Willard HospitalComment on above:Performed By: #### [id number] #### [facility] ([facility]) [address] [place], [place] [address]Otsstix [Mass/Vol]7.2 g/dLNormal6.0-8.3UnMercy Health Willard HospitalComment on above:Performed By: #### [id number] #### [facility] ([facility]) [address] [place], [place] [address]Keqgkx [Moles/Vol]139 mmol/WYjdten695-748XplsqopsefMercy Health Willard HospitalComment on above:Performed By: #### [id number] #### [facility] ([facility]) [address] [place], [place] [address]Wuwp nitrogen [Mass/Vol]27 mg/dLHigh7-25UnMercy Health Willard HospitalComment on above:Performed By: #### [id number] #### [facility] ([facility]) [address] [place] [address]AGMT NITROGEN/CREATININE (MASS RATIO) IN SER/PLAS14.4Noal [facility] CenterComment on above:Performed By: #### [id number] #### [facility] ([facility]) [address] [place] [address]MVOPZYWZWT A1Con 37-15-4275Qenvcaj [Mass/Vol]157 mg/dLNoal [facility] CenterComment on above:Performed By: #### [id number] #### [facility] ([facility]) [address] [place] [place] [address]OmR1p (Bld) [Mass fraction]7.1 %High4.0-6.0[facility] CenterComment on above:Performed By: #### [id number] #### [facility] ([facility]) [address] [place], [place] [address]EHIVH PANELon 09-82-8453LBWW/HDL3.9 mg/dLNormalUniversUC West Chester HospitalComment on above:Performed By: #### [id number] ####[facility] ([facility])[address] [place], [place] [address]Zegixdycwgk [Mass/Vol]140 mg/dL Oqgkxu058-668ShaayytukyMercy Health Willard HospitalComment on above:Performed By: #### [id number] ####[facility] ([facility])[address] [place] [address] Magnesium [Mass/Vol]211 mg/oIKmss01-235WujzchqsedMercy Health Willard Hospital Comment on above:Result Comment: TRIGLYCERIDE REFERENCE RANGE: 20 YEARS AND OLDER CARDIOVASCULAR RISK LESS THAN 150 mg/dL LOW RISK 150 TO 199 mg/dL BORDERLINE RISK 200 mg/dL AND GREATER HIGH RISKPerformed By: #### [id number] ####[facility] ([facility])[address] [place], [place] [address]Fayqcikwl [Mass/Vol]62 mg/dLNormal 0-160UnMercy Health Willard HospitalComment on above:Performed By: #### [id number] ####[facility] (BE[facility])[address] [place] [address]Gmhgtorof [Mass/Vol]36 mg/aHRrjosp67-51JerjnqnqahMercy Health Willard HospitalComment on above:Performed By: #### [id number] ####[facility] ([facility])[address] [place] [address]WHE HDL CHOL. (LDL+VLDL)104NormalUniversUC West Chester HospitalComment on above:Performed By: #### [id number] ####[facility] ([facility])[address] [place] [address]OSEFS VLDL-C42 mg/dLHigh0-40UnMercy Health Willard HospitalComment on above:Performed By: #### [id number] ####[facility] ([facility])[address] [place] [address]Ltgjf 21-70-5474Bkj [id number] Parish Contreras 1955 M Date Provider Department Center 11/05/2024 2245[facility] Family History Problem Relation Age of Onset Heart attack Father Other Sister Heart attack Brother Other Brother Family Status - Relation Status Age at Father Sister BrotherNormalUniWood County HospitalOffice Visiton 80-71-1637Qmoivp- up [id number] Parish Contreras 1955 M Date Provider Department Center 11/05/2024 281-[facility]UC[facility] Len [facility] Family History Problem Relation Age of Onset Heart attack Father Other Sister Heart attack Brother Other Brother Family Status - Relation Status Age at Father Sister Brother Level of Service:19913 AL OFFICE/OUTPATIENT ESTABLISHED MOD MDM 30 MIN () Reason for Visit and Comments: HIV infection, unspecified symptom status (CMS/HCC) [Other] Health Maintenance [619] Med Management [[id number]]NormalUnMercy Health Willard HospitalRPRon 02-63-1626RPOBSP AB PRESENCE IN SERUM BY RPRNon-ReactiveNormalNonreactive [facility] CenterComment on above:Performed By: #### [id number] #### [facility] [facility] [address] [place] [place] [address]T CELL SUBSET ANALYSISon 36-36-4730RV902.46 %Ltbdgq94.00-90.00 [facility] CenterComment on above:Performed By: #### [id number] #### [facility] ([facility] [address] [place] [id number] cells/ci7Wcvcvl141-6867FwyjpjfphfMercy Health Willard HospitalComment on above:Performed By: #### [id number] #### [facility] [address] [place] [address]BU046.42 %Low40.00-70.00[facility] Comment on above:Performed By: #### [id number] #### [facility] ([facility] [address] [place] [place] [address]YC0 [id number] cells/qo8Ortwlg529-6901WsskncprqhMercy Health Willard HospitalComment on above:Performed By: #### [id number] #### [facility] ([facility] [address] [place] [place] [address]QH0:CD80.80Low1.00-4.00UnMercy Health Willard Hospital Comment on above:Performed By: #### [id number] #### [facility] (BEAKER) [address] [place] [address]KF011.93 %Qfplhi64.00-40.00[facility] Comment on above:Performed By: #### [id number] #### [facility] ([facility] [address] [place] [address]EJ0 [id number] cells/nm4Mtdmaz046-421SknlmhjmxcMercy Health Willard HospitalComment on above:Performed By: #### [id number] #### [facility] ([facility] [address] [place] [address]Miroor Visiton 29-18-9903Ghzcnh-up [id number] Parish Contreras 1955 M Date Provider Department Center 10/29/2024 34194-YENAMFTWIN GUILLEN [facility] Family History Problem Relation Age of Onset Heart attack Father Other Sister Heart attack Brother Other Brother Family Status - Relation Status Age at Father Sister Brother Level of Service:57503 AL OFFICE/OUTPATIENT ESTABLISHED MOD MDM 30 MIN Reason [...] palpitations/irregular beats sometimes at rest after some exertion.[facility] AdministrationRefillon [id number] Parish Contreras Robert 1955 M Date Provider Department Center 10/21/2024 281-[facility]A [facility] Heal Family History Problem Relation Age of Onset Heart attack Father Other Sister Heart attack Brother Other Brother Family Status - Relation Status Age at Father Sister Brother Reason for Visit and Comments: Med Refill [[id number]][facility]36on Called Dr. Sheets office and spoke with a nurse. Informed her that patient's daughter called us and reported that Dr. Sheets wanted to increase Lyrica to 100 mg BID. Patient wants to get script at [facility] and Dr. Lucero would need to write the prescription. Requested that they fax us Dr. Sheets's note indicating the increase in Lyrica. Since Lyrica is controlled, wanted to make sure they want us to prescribe so that patient not getting prescriptions from 2 physicians. She will fax the note after speaking [id number] saw Dr. Sheets on 09/11/2024 and Lyrica was increased to 100mg BID. Patient would like for you to send the Lyrica 100 mg BID to the [facility]. [facility] Health AdministrationOrders Onlyon 15-04-2600Sssdcd Only [id number] Parish Contreras Robert 1955 M Date Provider Department Center 10/17/2024 SUSHILA HAND [facility] Len Heal Family History Problem Relation Age of Onset Heart attack Father Other Sister Heart attack Brother Other Brother Family Status - Relation Status Age at Father Sister BrotherNormalUniRegency Hospital [facility] West 50-21-1199Smbpet [id number] Grover Contrerassheela Jones 1955 M Date Provider Department Center 09/23/2024 SUSHILA HAND [facility] IN[facility] Len Heal Family History Problem Relation Age of Onset Heart attack Father Other Sister Heart attack Brother Other Brother Family Status - Relation Status Age at Father Sister Brother Reason for Visit and Comments: Med Refill [[id number]][facility] 08-26-2024 [id number] BenParish Jones 1955 Date Provider Department Center 08/26/2024 SUSHILA HAND [facility] INF Len Heal Family History Problem Relation Age of Onset Heart attack Father Other Sister Heart attack Brother Other Brother Family Status - Relation Status Age at Father Sister Brother Reason for Visit and Comments: Med Refill [[id number]][facility] 07-24-2024 [id number] BenParish Jones 1955 M Date Provider Department Center 07/24/2024 SUSHILA HAND [facility] INF Len Heal Family History Problem Relation Age of Onset Heart attack Father Other Sister Heart attack Brother Other Brother Family Status - Relation Status Age at Father Sister Brother Reason for Visit and Comments: Med Refill [[id number]][facility] AdministrationCA 19-9on 09-15-2022 CA 19-918 U/mLNormal0-35[facility] CenterComment on above:Result Comment: [employer] Electrochemiluminescence Immunoassay (ECLIA) . Values obtained with different assay methods or kits cannot be used interchangeably. Results cannot be interpreted as absolute evidence of the presence or absence of malignant disease.Performed By: #### CA 19,9 ####[facility] [address] [place] [address] [address]. Jose Adamson 88-82-0169BTS7.8 ng/mLNormal0.0-4.7The [facility] Comment on above:Result Comment: Nonsmokers <3.9 Smokers <5.6 . [employer] Electrochemiluminescence Immunoassay (ECLIA) . Values obtained with different assay methods or kits cannot be used interchangeably. Results cannot be interpreted as absolute evidence of the presence or absence of malignant disease.Performed By: #### HPYLLC #### [facility] [address] [place] [address] Dr. Jose Duggan PYLORI ANTIBODY IGGon 09-15-2022H. PYLORI IGG ABS0.23 Index ValueNormal0.00-0.79The [facility]as HospitalComment on above:Result Comment: Negative <0.80 Equivocal 0.80 - 0.89 Positive >0.89Performed By: #### HPYLLC #### [facility] [address] [place] [address] Dr. Jose GonsalesAMMONIAon 31-93-6830Uxdqlln (P) [Moles/Vol]13 umol/BYhqonp59-73 The [facility] HospitalComment on above:Performed By: #### PTTHEP #### [facility] [address] [place] [address] Dr. Jose GonsalesAMYLASEon 33-84-9311Izernoz [Catalytic activity/Vol]47 U/LNormal 25-115The [facility] HospitalComment on above:Performed By: #### PTTHEP #### [facility] [address] [place] [address] Dr. Jose Marmolejo AUTO DIFFon 65-08-3792CKHD #0.0 103/ulNormal0.0-0.1The [facility]as HospitalComment on above:Performed By: #### CBC ####[facility] [address] [place] [address]Dr.Yilan GonsalesBasophils/100 WBC (Bld)0.2 %Normal0.2-2.0The [facility] HospitalComment on above:Performed By: #### CBC ####[facility] Utuuogtgaw[address] [place], [place] [address]Dr.Dorindalan ChangEO #0.2 103/ulNormal0.0-0.7The [facility] HospitalComment on above:Performed By: #### CBC ####[facility] Xhyqaebeyf[address] [place], [place] [address]Dr.Jose ChangEosinophils/100 WBC (Bld)3.4 %Normal 0.9-7.0The [facility] HospitalComment on above:Performed By: #### CBC ####[facility] Wgvqwurgme[address] [place], [place] [address]Dr.Jose Gonsales Erythrocyte distribution width (RBC) [Ratio]13.7 %Sigkcw31.0-15.0The [facility] HospitalComment on above:Performed By: #### CBC ####[facility] Ubebbsmuqd[address] [place], [place] [address]Dr.Jose ChangHematocrit (Bld) [Volume fraction]44.0 %Wxrtfz40.0-54.0The [facility] HospitalComment on above:Performed By: #### CBC ####[facility] Dvhyzksnkd8[address] [place], [place] [address]Dr.Jose ChangHemoglobin (Bld) [Mass/Vol]14.4 g/dL Ateubb27.0-18.0The [facility] HospitalComment on above:Performed By: #### CBC ####[facility] Mskiuwsgtj27[address] [place], [place] [address]Dr. Jose ChangIG #0.01 10e3/ulNormal0.00-0.03The [facility] HospitalComment on above: Performed By: #### CBC ####[facility] Yhyegpcqxh24[address] [place], [place] [address]Dr.Jose ChangIG %0.2 %Normal0.0-0.5The [facility] HospitalComment on above:Performed By: #### CBC ####[facility] Sfqunvxcip[address] [place], [place] [address]Dr.Yilan ChangLYMPH #1.4 103/ulNormal1.2-3.8The [facility] HospitalComment on above:Performed By: #### CBC ####[facility] Amzcjehcmz00[address] [place], [place] [address]Dr. Jose GonsalesLymphocytes/100 WBC (Bld)31.6 %Aycvcm75.5-60.0[facility] Comment on above:Performed By: #### CBC ####[facility] Tvamerckly[address] [place], [place] [address]Dr.Jose GonsalesMANUAL DIFF REQNONormalThe [facility]as HospitalComment on above:Performed By: #### CBC ####[facility] Bumbrnktfp[address] [place], [place] [address]Dr.Jose GonsalesH (RBC) [Entitic mass]29.8 caIdyape54.9-34.0The [facility] HospitalComment on above: Performed By: #### CBC ####[facility] Awpltmvizy[address] [place], [place] [address]Dr.Jose GonsalesMCHC (RBC) [Mass/Vol]32.7 g/dLNormal 29.9-35.2The [facility] HospitalComment on above:Performed By: #### CBC ####[facility] Nvnpjldgng3[address] [place], [place] [address]Dr. Jose GonsalesV (RBC) [Entitic vol]91.1 uXIorvok88.0-94.0The [facility] Comment on above:Performed By: #### CBC ####[facility] Vjqfmkxidn90[address] [place], [place] [address]Dr.Jose GonsalesMONO #0.4 103/ulNormal0.3-0.8 The [facility] HospitalComment on above:Performed By: #### CBC ####[facility] Eevnksesmc34[address] [place], [place] [address]Dr.Jose Gonsales Monocytes/100 WBC (Bld)8.4 %Normal1.7-12.0The [facility] HospitalComment on above: Performed By: #### CBC ####[facility] Lpwokegxcn[address] [place], [place] [address]Dr.Jose ChangNEUT #2.5 103/ulNormal1.4-6.5The [facility] HospitalComment on above:Performed By: #### CBC ####[facility] [address] [place] [address]Dr.Jose GonsalesNeutrophils/100 WBC (Bld)56.2 %Qiswwy04.0-75.0The [facility] HospitalComment on above:Performed By: #### CBC ####[facility] Bscpcrthsp42[address] [place], [place] [address]Dr.Jose ChangPlatelet mean volume (Bld) [Entitic vol]10.4 fLNormal9.5-13.5 The [facility] HospitalComment on above:Performed By: #### CBC ####[facility] Xgzygjhpyu[address] [place], [place] [address]Dr.Dorindalan YrqtgFFH860 103/ulCritically kax333-723Miz [facility] HospitalComment on above:Performed By: #### CBC ####[facility] Onannuicqv233[address] [place], [place] [address]Dr.Yilan ChangRBC4.83 106/ulNormal4.70-6.10The [facility] HospitalComment on above:Performed By: #### CBC ####[facility] Yoapyhuoho[address] [place], [place] [address]Dr.Dorindalan ChangWBC4.4 103/ulNormal4.0-11.0The [facility] HospitalComment on above:Performed By: #### CBC ####[facility] Orjnumqwuy[address] [place], [place] [address]Dr.Dorindalan ChangFREE THYROXINE INDEX T7on 01-19-9261GIV1.85Jecdku6.30-4.50The [facility] HospitalComment on above:Performed By: #### CMP, T7, LIPA, TSH, YFN ####[facility] Pcimplppdj[address] [place], [place] [address]Dr. Yilan PnhdlS0S39.0 % Tskkci47.0-40.0The [facility] HospitalComment on above:Performed By: #### CMP, T7, LIPA, TSH, YFN ####[facility] [address] [place] [address]Dr. Jose ChangT4 [Mass/Vol]5.30 ug/dLNormal4.50-12.10The [facility] HospitalComment on above:Performed By: #### CMP, T7, LIPA, TSH, YFN ####[facility] [address]bx[address] [place] [address]Dr. Jose ChangIRON on 77-37-0444Fhvr [Mass/Vol]47.0 ug/dLCritically low65.0-175.0The [facility] HospitalComment on above:Performed By: #### PTTHEP #### [facility] [address] [place] [address] Dr. Jose GonsalesLIPASEon 53-60-6612Jkwdcg [Catalytic activity/Vol]182.0 U/LNormal 73.0-393.0The [facility] HospitalComment on above:Performed By: #### PTTHEP #### [facility] [address] [place] [address] Dr. Jose GonsalesPROF 14(COMP METB)on 56-45-2950Otwjrvv [Mass/Vol]3.5 g/dLNormal 3.4-5.0The [facility] HospitalComment on above:Performed By: #### CMP, T7, LIPA, TSH, YFN ####[facility] Dvlpnguleg[address] [place] [address]Dr. Jose ChangAlbumin/Globulin [Mass ratio]0.9 {ratio}NormalThe [facility] HospitalComment on above:Performed By: #### CMP, T7, LIPA, TSH, YFN ####[facility] [address]qqm[address] [place] [address]Dr. Dorindalan ChangALP [Catalytic activity/Vol]64 U/HSxvbjf52-391Kry [facility] HospitalComment on above: Performed By: #### CMP, T7, LIPA, TSH, YFN ####[facility] [address] [place] [address]Dr. Jose ChangALT [Catalytic activity/Vol] 16 U/GNavuha46-02Njz [facility] HospitalComment on above:Performed By: #### CMP, T7, LIPA, TSH, YFN ####[facility] [address]juump[address] [place] [address]Dr. Yilan ChangAnion gap [Moles/Vol]9.6 mmol/LNormalThe [facility] HospitalComment on above:Performed By: #### CMP, T7, LIPA, TSH, YFN ####[facility] Xqbwprnzcr[address] [place], [place] [address]Dr. Yilan ChangAST [Catalytic activity/Vol]16 U/AAkjpay99-21Cey [facility] Comment on above:Performed By: #### CMP, T7, LIPA, TSH, YFN ####[facility] Cndzoyuqjz[address] [place], [place] [address]Dr. Yilan Gonsales Bilirubin [Mass/Vol]0.3 mg/dLNormal0.2-1.0The [facility] HospitalComment on above: Performed By: #### CMP, T7, LIPA, TSH, YFN ####[facility] Ulgkhefsin[address] [place], [place] [address]Dr. Yilan ChangCalcium [Mass/Vol]9.3 mg/dL Normal8.5-10.1The [facility] [place] [facility] on above:Performed By: #### CMP, T7, LIPA, TSH, YFN ####[facility] Lvwnpismme[address] [place], [place] [address]Dr. Yilan ChangChloride [Moles/Vol]104 mmol/EClllgl94-969Oqz [facility] HospitalComment on above:Performed By: #### CMP, T7, LIPA, TSH, YFN ####[facility] Teuqebuxgy[address] [place], [place] [address]Dr. Yilan ChangCO2 [Moles/Vol]28.9 mmol/XFqpyvj86.0-32.0The [facility] HospitalComment on above: Performed By: #### CMP, T7, LIPA, TSH, YFN ####[facility] Wrgpobqznp[address] [place], [place] [address]Dr. Yilan ChangCreatinine [Mass/Vol]1.96 mg/dLCritically high0.70-1.30The [facility] HospitalComment on above:Performed By: #### CMP, T7, LIPA, TSH, YFN ####[facility] [address]ofvu[address] [place] [address]Dr. Yilan ChangEGFR-AF NAKJUWXK13 mL/min/1.73m2 Critically low>=60The [facility] HospitalComment on above:Performed By: #### CMP, T7, LIPA, TSH, YFN ####[facility] Sybrldfgdg[address] [place] [address]Dr. Yilan ChangEGFR-NON AF CMKGPVOO92 mL/min/1.68e8Ozdpwuxeyc low>=60The [facility] HospitalComment on above:Performed By: #### CMP, T7, LIPA, TSH, YFN ####[facility] Hcgcsbplku[address] [place], [place] [address]Dr. Yilan ChangGlobulin (S) [Mass/Vol]3.7 g/dLNoHolzer Medical Center – Jackson Comment on above:Performed By: #### CMP, T7, LIPA, TSH, YFN ####[facility] Qewsyspked[address] [place], [place] [address]Dr. Yilan Gonsales Glucose [Mass/Vol]161 mg/dLCritically zgcx53-211Khk [facility] HospitalComment on above:Performed By: #### CMP, T7, LIPA, TSH, YFN ####[facility] Bkknavrrju[address] [place], [place] [address]Dr. Yilan ChangPotassium [Moles/Vol]4.5 mmol/LNormal3.5-5.1The [facility] HospitalComment on above: Performed By: #### CMP, T7, LIPA, TSH, YFN ####[facility] Udcmhdegst[address] [place], [place] [address]Dr. Yilan ChangProtein [Mass/Vol]7.2 g/dL Normal6.4-8.2The [facility] HospitalComment on above:Performed By: #### CMP, T7, LIPA, TSH, YFN ####[facility] Eongjgkurz[address] [place], [place] [address]Dr. Yilan ChangSodium [Moles/Vol]138 mmol/MKoreqw002-791Iop [facility] HospitalComment on above:Performed By: #### CMP, T7, LIPA, TSH, YFN ####[facility] [address] [place], [place] [address]Wi. Jose ChangUrea nitrogen [Mass/Vol]33.0 mg/dLCritically high7.0-18.0The [facility] Comment on above:Performed By: #### CMP, T7, LIPA, TSH, YFN ####[facility] [address]jdkg[address] [place], [place] [address]Vp. Dorindalan ChangUrea nitrogen/Creatinine [Mass ratio]16.8 mg/mgNormalThe [facility] HospitalComment on above:Performed By: #### CMP, T7, LIPA, TSH, YFN ####[facility] [address] [place], [place] [address]Jk. Jose ChangTSHon 71-81-0953RCA7.868 uIU/mLNormal0.358-3.740The [facility] HospitalComment on above: Performed By: #### CMP, T7, LIPA, TSH, YFN ####[facility] [address]mv[address] [place] [address]Dr. Jose GonsalesDIGOXINon 90-72-8676GHB5.6 ng/mLCritically low0.9-2.0The [facility] HospitalComment on above:Performed By: #### DIG #### [facility] [address] [place], [place] [address] Dr. Jose GonsalesCardiovascular Lab Reporton 64-55-2340Rjxbddsugsdjyk Lab Report [facility] Patient Name: Parish Contreras [facility] MR #: [id number] Physician: Eleno Arvizu M.D. Medicine Service Date: 04/05/2022 Division of Birthdate: 1955 Cardiology Room #: Adult Cardiovascular Services [place] [address] Cardiovascular Laboratory Report INDICATION: The patient is [...] signed the consent. 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 The right groin area was prepped and draped in usual fashion. Micropuncture technique and ultrasound guidance were used for access in the right common femoral artery. Inner cannula angiography was performed, followed by upsizing to the 5-Nepalese x 11 cm sheath. Access was obtained using same technique in the right common femoral vein and a 6-Nepalese x 11 cm sheath was placed. A 6-Nepalese Miller catheter was used to right heart catheterization with measurement pressures of and calculation of cardiac output using the estimated China method Miller catheter was removed. Bilateral selective coronary angiography was then performed using 5-Nepalese JL4 and JR4 diagnostic catheters. The JR4 diagnostic catheter was used to selectively engage the radial graft to the obtuse marginal branch #1, angiography was performed. The catheter was used to selectively engage the saphenous venous graft to the diagonal branch, angiography was performed. The catheter was exchanged to a 5-Nepalese AR modified diagnostic catheter, which was used to selectively engage the saphenous venous graft to the PDA, angiography was performed. A 5-Nepalese FABIANA catheter was used to selectively engage the left subclavian artery and then selectively engage the left internal mammary artery, angiography was performed. Catheter was removed. Procedure was concluded. A 6-Nepalese Angio-Seal device was used for hemostasis in [...] graft angiography. 1. (more content not included)...NormalThe [facility] CBC AUTO DIFFon 47-57-4415GEJB #0.0 103/ulNormal0.0-0.1The [facility] Comment on above:Performed By: #### HPYLLC #### [facility] [address] [place] [address] [address] Jose Prabhakarsophils/100 WBC (Bld)0.2 %Normal0.2-2.0The [facility] Comment on above:Performed By: #### HPYLLC #### [facility] [address] [place] [address] Dr. Jose Forman #0.1 103/ulNormal0.0-0.7The [facility] HospitalComment on above: Performed By: #### HPYLLC #### [facility] [address] [place] [address] Dr. Jose Mniaosinophils/100 WBC (Bld)2.2 %Normal0.9-7.0The [facility] Comment on above:Performed By: #### HPYLLC #### [facility] [address] [place] [address] Dr. Jose Minarythrocyte distribution width (RBC) [Ratio]12.8 %Bmlsqe64.0-15.0 The [facility]as HospitalComment on above:Performed By: #### HPYLLC #### [facility] [address] [place] [address] Dr. Jose GonsalesHematocrit (Bld) [Volume fraction]44.5 %Trrzha04.0-54.0The [facility] HospitalComment on above:Performed By: #### HPYLLC #### [facility] [address] [place] [address] Dr. Jose GonsalesHemoglobin (Bld) [Mass/Vol]14.5 g/mGLwvjre60.0-18.0The [facility] HospitalComment on above:Performed By: #### HPYLLC #### [facility] [address] [place] [address] Dr. Jose Rajan #0.01 10e3/ulNormal0.00-0.03The [facility] HospitalComment on above:Performed By: #### HPYLLC #### [facility] [address] [place] [address] Dr. Jose Rajan %0.2 %Normal0.0-0.5The [facility] HospitalComment on above: Performed By: #### HPYLLC #### [facility] [address] [place] [address] Dr. Jose Heller #1.8 103/ulNormal1.2-3.8The [facility] HospitalComment on above:Performed By: #### HPYLLC #### [facility] [address] [place] [address] Dr. Jose Paulinohocytes/100 WBC (Bld)31.8 %Hikhjk19.5-60.0The [facility] HospitalComment on above:Performed By: #### HPYLLC #### [facility] [address] [place] [address] Dr. Jose Figueroa DIFF REQNONormalThe [facility]as HospitalComment on above: Performed By: #### HPYLLC #### [facility] [address] [place] [address] Dr. Jose Watson (RBC) [Entitic mass]30.6 xlQzbeyo58.9-34.0The [facility] HospitalComment on above:Performed By: #### HPYLLC #### [facility] [address] [place] [address] Dr. Jose Michelle (RBC) [Mass/Vol]32.6 g/qWGmbxul41.9-35.2The [facility] HospitalComment on above:Performed By: #### HPYLLC #### [facility] [address] [place] [address] Dr. Jose Michelle (RBC) [Entitic vol]93.9 rENttpav07.0-94.0The [facility] HospitalComment on above:Performed By: #### HPYLLC #### [facility] [address] [place] [address] Dr. Jose Morales #0.5 103/ulNormal0.3-0.8The [facility] HospitalComment on above:Performed By: #### HPYLLC #### [facility] [address] [place] [address] Dr. Jose Clarkeocytes/100 WBC (Bld)8.5 %Normal1.7-12.0The [facility] Comment on above:Performed By: #### HPYLLC #### [facility] [address] [place] [address] Dr. Jose AdamesUT #3.3 103/ulNormal1.4-6.5The [facility] HospitalComment on above:Performed By: #### HPYLLC #### [facility] [address] [place] [address] Dr. Jose Adamesutrophils/100 WBC (Bld)57.1 %Vlwwxq63.0-75.0The [facility] HospitalComment on above:Performed By: #### HPYLLC #### [facility] [address] [place] [address] Dr. Jose GonsalesPlatelet mean volume (Bld) [Entitic vol]10.1 fLNormal9.5-13.5The [facility] HospitalComment on above:Performed By: #### HPYLLC #### [facility] [address] [place] [address] Dr. Jose GonsalesPLT150 103/tlDxsujr666-008Vmr [facility] HospitalComment on above: Performed By: #### HPYLLC #### [facility] [address] [place] [address] Dr. Jose GonsalesRBC4.74 106/ulNormal4.70-6.10The [facility] HospitalComment on above:Performed By: #### HPYLLC #### [facility] [address] [place] [address] Dr. Jose GonsalesWBC5.8 103/ulNormal4.0-11.0The [facility] HospitalComment on above: Performed By: #### HPYLLC #### [facility] [address] [place] [address] Dr. Jose GonsalesCovid-19 PCR (CVDTB)on 93-96-2931ETRH-CoV-2 (COVID-19) RNA JORDON+probe Ql (Unsp spec)Not detectedNormalNOT DETECTEDThe [facility] Comment on above:Result Comment: This test is not yet approved or cleared by the [place] FDA. When there are no FDA-approved or cleared tests available, and other criteria are met, FDA can make tests available under an emergency access mechanism called an Emergency Use Authorization (EUA). The EUA for this test is supported by the Control System Manager of Health and Human Service's (HHS's) declaration [...] symptoms consistent with SARS-CoV-2.Performed By: #### CVDTBH ####[facility] [address] [place] [address]Dr. Jose GonsalesPROF CHEM 8 (BAS METB)on 78-33-9381Cclsz gap [Moles/Vol]14.0 mmol/LNormalUniversity Hospitals Samaritan Medical CenterComment on above:Performed By: #### PTTHEP #### [facility] [address] [address] [address] Jose GonsalesCalcium [Mass/Vol]9.3 mg/dLNormal8.5-10.1[facility] Comment on above:Performed By: #### PTTHEP #### [facility] [address] [address] [address] Jose GonsalesChloride [Moles/Vol]106 mmol/XEyozpp30-542Lzz [facility] Comment on above:Performed By: #### PTTHEP #### [facility] [address] [address] [address] Jose GonsalesCO2 [Moles/Vol]22.7 mmol/IRgzhkt60.0-32.0[facility] Comment on above:Performed By: #### PTTHEP #### [facility] [address] [address] [address] Jose GonsalesCreatinine [Mass/Vol]2.22 mg/dLCritically high0.70-1.30The [facility] HospitalComment on above:Performed By: #### PTTHEP #### [facility] [address] [address] [address] Jose MinaGFR-AF JFCFYKYL66 mL/min/1.31k1Ecedsbisto low>=60The [facility]as HospitalComment on above:Performed By: #### PTTHEP #### [facility] [address] [address] [address] Jose MinaGFR-NON AF DVIUQYSB91 mL/min/1.36c1Qpyzqevzfa low>=60The [facility] HospitalComment on above:Performed By: #### PTTHEP #### [facility] [address] [address] [address] Jose GonsalesGlucose [Mass/Vol]121 mg/dLCritically nkvk87-082Tjv [facility] HospitalComment on above:Performed By: #### PTTHEP #### [facility] [address] [place] [address] Dr. Jose GonsalesPotassium [Moles/Vol]4.7 mmol/LNormal3.5-5.1The [facility] Comment on above:Performed By: #### PTTHEP #### [facility] [address] [place] [address] Dr. Jose Aldridgedium [Moles/Vol]138 mmol/ULtyryt277-169StkUniversity Hospitals Samar[facility] Medical Center Comment on above:Performed By: #### PTTHEP #### [facility] [address] [place] [address] Dr. Jose GonsalesUrea nitrogen [Mass/Vol]38.0 mg/dLCritically high7.0-18.0The [facility] HospitalComment on above:Performed By: #### PTTHEP #### [facility] [address] [place] [address] Dr. Jose Marin nitrogen/Creatinine [Mass ratio]17.1 mg/mgNormalThe [facility] HospitalComment on above:Performed By: #### PTTHEP #### [facility] [address] [place] [address] Dr. Jose GonsalesNM STRESS/REST MULTIon 11-27-0199CK STRESS/REST MULTIPatient: PARISH CONTRERAS Exam Date: 03/21/2022 : 1955 Gender:M Ordering : DR ELENO JENKINS M.D. Admission #: [id number] Family : DR WOLFLAS CHIDI . Order #: [id number] CLICK HERE TO VIEW EXAM RADIOLOGY REPORT [...] Good. PERFUSION DEFECT: LOCATION: Mid-anterior. Apical anterior. [place]. SIZE: Medium (3-4 segments). SEVERITY: Severe. TYPE: Mixed. WALL MOTION: Severe hypokinesis: Mid-anterior. Apical anterior. [place]. LV SIZE: Enlarged; EDV 157 mL. TID [...] by: Brian Pate MD on 03/22/2022 at 07:09[facility] DIGOXINon 82-66-1362WHG0.1 ng/mLNormal0.8-2.0The [facility] HospitalComment on above:Performed By: #### PTTHEP #### [facility] [address] [place] [address] Dr. Jose Cabrera 02-69-6864YRH4.1 ng/mLNormal0.8-2.0The [facility] HospitalComment on above:Performed By: #### PTTHEP #### [facility] [address] [place] [address] Dr. Jose Sharpe 26-61-3978Gzbsewzjglm peptide B (Bld) [Mass/Vol]353.0 pg/mL Normal<=900.0The [facility]as HospitalComment on above:Performed By: #### PT #### [facility] [address] [place] [address] Dr. Jose Nava [place] ADMITon 10-73-6685TL [Catalytic activity/Vol]122 U/L Lhymcl74-883Qac [facility] HospitalComment on above:Performed By: #### PT #### [facility] [address] [place] [address] Dr. Jose Orlando.MB [Mass/Vol]0.94 ng/mLNormal<=2.37The [facility] Comment on above:Performed By: #### PT #### [facility] [address] [place] [address] Dr. Jose VillelaTROP208.6 pg/mLCritically high4.0-42.2The [facility] Comment on above:Result Comment: CUT-OFF POINTS HAVE BEEN ESTABLISHED BASED ON THE FOURTH UNIVERSAL DEFINITIONS OF MYOCARDIAL INFARCTION. THE UPPER REFERENCE LIMIT (URL) OF TROPONIN, DEFINED THE 99TH PERCENTILE OF cTnI DISTRIBUTION IN A REFERENCE POPULATION, HAS BEEN CONFIRMED THE DECISION THRESHOLD FOR [place] DIAGNOSIS.Performed By: #### PT #### [facility] [address] [place] [address] Dr. Jose RicksO96.0 ng/mLNormal<=121.0The [facility] HospitalComment on above: Performed By: #### PT #### [facility] [address] [place] [address] Dr. Jose Marmolejo AUTO DIFFon 47-47-4410KFRM #0.0 103/ulNormal0.0-0.1The [facility] HospitalComment on above:Performed By: #### HPYLLC #### [facility] [address] [place] [address] Dr. Jose GonsalesBasophils/100 WBC (Bld)0.3 %Normal0.2-2.0The [facility] Comment on above:Performed By: #### HPYLLC #### [facility] [address] [place] [address] Dr. Jose Forman #0.1 103/ulNormal0.0-0.7The [facility] HospitalComment on above: Performed By: #### HPYLLC #### [facility] [address] [place] [address] Dr. Jose Minaosinophils/100 WBC (Bld)1.9 %Normal0.9-7.0The [facility] Comment on above:Performed By: #### HPYLLC #### [facility] [address] [place] [address] Dr. Jose Minarythrocyte distribution width (RBC) [Ratio]12.9 %Rqktkz88.0-15.0 The [facility]as HospitalComment on above:Performed By: #### HPYLLC #### [facility] [address] [place] [address] Dr. Jose GonsalesHematocrit (Bld) [Volume fraction]45.6 %Duikdq35.0-54.0The [facility] HospitalComment on above:Performed By: #### HPYLLC #### [facility] [address] [place] [address] Dr. Jose GonsalesHemoglobin (Bld) [Mass/Vol]15.1 g/zKKlquia41.0-18.0The [facility] HospitalComment on above:Performed By: #### HPYLLC #### [facility] [address] [place] [address] Dr. Jose Rajan #0.02 10e3/ulNormal0.00-0.03The [facility] HospitalComment on above:Performed By: #### HPYLLC #### [facility] [address] [place] [address] Dr. Yilan ChangIG %0.3 %Normal0.0-0.5The [facility] HospitalComment on above: Performed By: #### HPYLLC #### [facility] [address] [place] [address] Dr. Jose Heller #2.0 103/ulNormal1.2-3.8The [facility] HospitalComment on above:Performed By: #### HPYLLC #### [facility] [address] [place] [address] Dr. Jose Paulinohocytes/100 WBC (Bld)29.5 %Qbgzff30.5-60.0The [facility] HospitalComment on above:Performed By: #### HPYLLC #### [facility] [address] [place] [address] Dr. Jose Figueroa DIFF REQNONormalThe [facility] HospitalComment on above: Performed By: #### HPYLLC #### [facility] [address] [place] [address] Dr. Jose Watson (RBC) [Entitic mass]31.1 hqEitbdb77.9-34.0The [facility] HospitalComment on above:Performed By: #### HPYLLC #### [facility] [address] [place] [address] Dr. Jose Michelle (RBC) [Mass/Vol]33.1 g/iUDripox97.9-35.2The [facility] HospitalComment on above:Performed By: #### HPYLLC #### [facility] [address] [place] [address] Dr. Jose Michelle (RBC) [Entitic vol]94.0 uXVedtyd29.0-94.0The [facility] HospitalComment on above:Performed By: #### HPYLLC #### [facility] [address] [place] [address] Dr. Jose Morales #0.7 103/ulNormal0.3-0.8The [facility] HospitalComment on above:Performed By: #### HPYLLC #### [facility] [address] [place] [address] Dr. Jose Clarkeocytes/100 WBC (Bld)10.4 %Normal1.7-12.0The [facility] Comment on above:Performed By: #### HPYLLC #### [facility] [address] [place] [address] Dr. Jose Gleason #3.9 103/ulNormal1.4-6.5The [facility] HospitalComment on above:Performed By: #### HPYLLC #### [facility] [address] [place] [address] Dr. oJse Adamesutrophils/100 WBC (Bld)57.6 %Amnpys72.0-75.0The [facility] HospitalComment on above:Performed By: #### HPYLLC #### [facility] [address] [place] [address] Dr. Jose GonsalesPlatelet mean volume (Bld) [Entitic vol]10.1 fLNormal9.5-13.5The [facility] HospitalComment on above:Performed By: #### HPYLLC #### [facility] [address] [place] [address] Dr. Jose GonsalesPLT147 103/ulCritically rki168-094Zjk [facility] HospitalComment on above:Performed By: #### HPYLLC #### [facility] [address] [place] [address] Dr. Jose GonsalesRBC4.85 106/ulNormal4.70-6.10The [facility] HospitalComment on above:Performed By: #### HPYLLC #### [facility] [address] [place] [address] Dr. Jose GonsalesWBC6.7 103/ulNormal4.0-11.0The [facility] HospitalComment on above: Performed By: #### HPYLLC #### [facility] [address] [place] [address] Dr. Jose Cabrera 92-58-7782KNN5.9 ng/mLNormal0.8-2.0The [facility] HospitalComment on above:Performed By: #### HPYLLC #### [facility] [address] [address] [address] Jose GonsalesPOINT OF CARE GLUCOSEon 34-68-8094Zlwufkl [Mass/Vol]152 mg/dL Critically pefz18-112Qnq [facility] HospitalComment on above:Performed By: #### HPYLLC #### [facility] [address] [place] [address] Dr. Jose GonsalesPROF 14(COMP METB)on 08-53-8438Pkbrqvo [Mass/Vol]3.5 g/dLNormal 3.4-5.0The [facility] HospitalComment on above:Performed By: #### PT #### [facility] [address] [place] [address] Dr. Jose GonsalesAlbumin/Globulin [Mass ratio]0.9 {ratio}NormalThe [facility] HospitalComment on above:Performed By: #### PT #### [facility] [address] [place] [address] Dr. Jose LynP [Catalytic activity/Vol]57 U/RNflmck39-765Tsb [facility] HospitalComment on above:Performed By: #### PT #### [facility] [address] [place] [address] Dr. Jose Agarwal [Catalytic activity/Vol]35 U/JUthapd28-12Umx [facility] HospitalComment on above:Performed By: #### PT #### [facility] [address] [place] [address] Dr. Jose Mc gap [Moles/Vol]14.2 mmol/LNormalThe [facility] Comment on above:Performed By: #### PT #### [facility] [address] [place] [address] Dr. Jose GonsalesAST [Catalytic activity/Vol]24 U/LTuvcye61-22Zyo [facility] HospitalComment on above:Performed By: #### PT #### [facility] [address] [place] [address] Dr. Jose GonsalesBilirubin [Mass/Vol]0.4 mg/dLNormal0.2-1.3The [facility] Comment on above:Performed By: #### PT #### [facility] [address] [address] [address] Jose GonsalesCalcium [Mass/Vol]9.1 mg/dLNormal8.5-10.1[facility] Comment on above:Performed By: #### PT #### [facility] [address] [address] [address] Jose GonsalesChloride [Moles/Vol]103 mmol/NXgbfya60-120Csl [facility] Comment on above:Performed By: #### PT #### [facility] [address] [address] [address] Jose GonsalesCO2 [Moles/Vol]24.8 mmol/VPhtbng99.0-30.0[facility] Comment on above:Performed By: #### PT #### [facility] [address] [address] [address] Jose GonsalesCreatinine [Mass/Vol]1.94 mg/dLCritically high0.66-1.25ThMemorial Health System Selby General HospitalComment on above:Performed By: #### PT #### [facility] [address] [address] [address] Jose MniaGFR-AF HUMDWFJV09 mL/min/1.67q5Pqzlyopirh low>=60The [facility] HospitalComment on above:Performed By: #### PT #### [facility] [address] [address] [address] Jose MinaGFR-NON AF GIMJCBMN29 mL/min/1.04o8Nmnvsxrqyp low>=60The [facility] HospitalComment on above:Performed By: #### PT #### [facility] [address] [address] [address] Jose GonsalesGlobulin (S) [Mass/Vol]3.9 g/dLNormalThMemorial Health System Selby General HospitalComment on above:Performed By: #### PT #### [facility] [address] [address] [address] Jose GonsalesGlucose [Mass/Vol]125 mg/dLCritically vxoc71-227Jkq Chris HospitalComment on above:Performed By: #### PT #### [facility] [address] [address] [address] Jose GonsalesPotassium [Moles/Vol]5.0 mmol/LNormal3.4-5.0The [facility] Comment on above:Performed By: #### PT #### [facility] [address] [address] [address] Jose GonsalesProtein [Mass/Vol]7.4 g/dLNormal6.1-8.2[facility] Comment on above:Performed By: #### PT #### [facility] [address] [address] [address] Jose GonsalesSodium [Moles/Vol]137 mmol/MPdbmyv947-276Zty [facility] Comment on above:Performed By: #### PT #### [facility] [address] [address] [address] Jose GonsalesUrea nitrogen [Mass/Vol]37.0 mg/dLCritically high7.0-18.0The [facility] HospitalComment on above:Performed By: #### PT #### [facility] [address] [address] [address] Jose Marin nitrogen/Creatinine [Mass ratio]19.1 mg/mgNormalThe [facility] HospitalComment on above:Performed By: #### PT #### [facility] [address] [address] [address] Jose GonsalesPTT HEPARIN MONITORon 81-62-2091wSQT Coag (Bld) [Time]27.3 s Critically low39.5-54.2The [facility] HospitalComment on above:Performed By: #### PTTHEP ####[facility] [address] [address]. Jose GonsalesT3, TOTAL (TRIIODOTHYRONINE)on 55-63-6761I6, TOTAL95 ng/dL Ybewfe39-311Ajf [facility] HospitalComment on above:Performed By: #### PT #### [facility] [address] [address] [address] Jose Sharpe 09-62-0658Sykgpkwxkoy peptide B (Bld) [Mass/Vol]781.0 pg/mL Normal<=900.0[facility] Medical CenterComment on above:Performed By: #### BNP, CMP ####[facility] [address] [address]. Jose Nava [place] 3-6on 90-93-6528FW [Catalytic activity/Vol]331 U/L Critically wfau48-607Syo [facility] HospitalComment on above:Result Comment: test repeatedPerformed By: #### PT #### [facility] [address] [address] [address] Jose Orlando.MB [Mass/Vol]2.24 ng/mLNormal<=2.37[facility] Comment on above:Performed By: #### PT #### [facility] [address] [address] [address] Jose Gutiérrez430.1 pg/mLCritically high4.0-42.2[facility] Comment on above:Result Comment: CUT-OFF POINTS HAVE BEEN ESTABLISHED BASED ON THE FOURTH UNIVERSAL DEFINITIONS OF MYOCARDIAL INFARCTION. THE UPPER REFERENCE LIMIT (URL) OF TROPONIN, DEFINED THE 99TH PERCENTILE OF cTnI DISTRIBUTION IN A REFERENCE POPULATION, HAS BEEN CONFIRMED THE DECISION THRESHOLD FOR [place] DIAGNOSIS. test repeatedPerformed By: #### PT #### [facility] [address] [address] [address] Jose Orlando [Catalytic activity/Vol]320 U/LCritically sfrt03-815GtiUniversity Hospitals Samaritan Medical CenterComment on above:Result Comment: test repeatedPerformed By: #### PT #### [facility] [address] [address] [address] Jose ShieldsMB [Mass/Vol]2.32 ng/mLNormal<=2.37[facility] Comment on above:Performed By: #### PT #### [facility] [address] [address] [address] Jose Gutiérrez666.8 pg/mLCritically high4.0-42.2[facility] Comment on above:Result Comment: CUT-OFF POINTS HAVE BEEN ESTABLISHED BASED ON THE FOURTH UNIVERSAL DEFINITIONS OF MYOCARDIAL INFARCTION. THE UPPER REFERENCE LIMIT (URL) OF TROPONIN, DEFINED THE 99TH PERCENTILE OF cTnI DISTRIBUTION IN A REFERENCE POPULATION, HAS BEEN CONFIRMED THE DECISION THRESHOLD FOR [place] DIAGNOSIS. test repeatedPerformed By: #### PT #### [facility] [address] [place] [address] Dr. Jose Marmolejo AUTO DIFFon 67-08-9854KUGF #0.0 103/ulNormal0.0-0.1The [facility] HospitalComment on above:Performed By: #### CBC #### [facility] [address] [place] [address] Dr. Jose GonsalesBasophils/100 WBC (Bld)0.1 %Critically low0.2-2.0[facility] Medical CenterComment on above:Performed By: #### CBC #### [facility] [address] [place] [address] Dr. Jose Forman #0.0 103/ulNormal0.0-0.7The [facility] HospitalComment on above: Performed By: #### CBC #### [facility] [address] [place] [address] Dr. Jose Minaosinophils/100 WBC (Bld)0.1 %Critically low0.9-7.0[facility] Medical CenterComment on above:Performed By: #### CBC #### [facility] [address] [place] [address] Dr. Jose Minarythrocyte distribution width (RBC) [Ratio]12.9 %Gknyhe81.0-15.0 The [facility] HospitalComment on above:Performed By: #### CBC #### [facility] [address] [place] [address] Dr. Jose GonsalesHematocrit (Bld) [Volume fraction]43.4 %Hpgssl51.0-54.0[facility] CenterComment on above:Performed By: #### CBC #### [facility] [address] [place] [address] Dr. Jose GonsalesHemoglobin (Bld) [Mass/Vol]14.7 g/hNEvcjgw00.0-18.0The [facility] HospitalComment on above:Performed By: #### CBC #### [facility] [address] [place] [address] Dr. Jose Rajan #0.03 10e3/ulNormal0.00-0.03The [facility] HospitalComment on above:Performed By: #### CBC #### [facility] [address] [place] [address] Dr. Jose Rajan %0.4 %Normal0.0-0.5The [facility] HospitalComment on above: Performed By: #### CBC #### [facility] [address] [place] [address] Dr. Jose Heller #0.9 103/ulCritically low1.2-3.8The [facility] Comment on above:Performed By: #### CBC #### [facility] [address] [place] [address] Dr. Jose Paulinohocytes/100 WBC (Bld)13.9 %Critically low20.5-60.0The [facility] HospitalComment on above:Performed By: #### CBC #### [facility] [address] [place] [address] Dr. Jose DurbinMERCY HEALTH [facility] DIFF REQNONormalThe [facility] HospitalComment on above: Performed By: #### CBC #### [facility] [address] [place] [address] Dr. Jose Michelle (RBC) [Entitic mass]31.1 ctHjkrxl23.9-34.0The [facility] HospitalComment on above:Performed By: #### CBC #### [facility] [address] [place] [address] Dr. Jose Michelle (RBC) [Mass/Vol]33.9 g/iDQqcrfm72.9-35.2The [facility] HospitalComment on above:Performed By: #### CBC #### [facility] [address] [place] [address] Dr. Jose MichelleV (RBC) [Entitic vol]91.8 nXSitvrm28.0-94.0The [facility] HospitalComment on above:Performed By: #### CBC #### [facility] [address] [place] [address] Dr. Jose Morales #0.5 103/ulNormal0.3-0.8The [facility] HospitalComment on above:Performed By: #### CBC #### [facility] [address] [place] [address] Dr. Jose Clarkeocytes/100 WBC (Bld)7.0 %Normal1.7-12.0[facility] Comment on above:Performed By: #### CBC #### [facility] [address] [place] [address] Dr. Jose Gleason #5.3 103/ulNormal1.4-6.5The [facility] HospitalComment on above:Performed By: #### CBC #### [facility] [address] [place] [address] Dr. Jose Adamesutrophils/100 WBC (Bld)78.5 %Critically high43.0-75.0The [facility] HospitalComment on above:Performed By: #### CBC #### [facility] [address] [place] [address] Dr. Jose Portillo mean volume (Bld) [Entitic vol]10.1 fLNormal9.5-13.5The [facility] HospitalComment on above:Performed By: #### CBC #### [facility] [address] [place] [address] Dr. Jose GonsalesPLT129 103/ulCritically lil156-027Ynk [facility] HospitalComment on above:Performed By: #### CBC #### [facility] [address] [place] [address] Dr. Jose GonsalesRBC4.73 106/ulNormal4.70-6.10The [facility] HospitalComment on above:Performed By: #### CBC #### [facility] [address] [place] [address] Dr. Gacria ChangWBC6.8 103/ulNormal4.0-11.0[facility] CenterComment on above: Performed By: #### CBC #### [facility] [id number] Garcia ChangECHOCARDIO M/2D COMPLETEon 82-10-0910FSBPLRIGCQ M/2D COMPLETE Patient: PARISH CONTRERAS Exam Date: 12/21/2021 : 1955 Gender:M Ordering : DR JONAS SHEETS . Admission #: [id number] Family : Order #: [id number] CLICK HERE TO VIEW EXAM ECHOCARDIOGRAM REPORT [...] Area(A4C): 17.90 cm2 Left Atrium Systolic Volume(A2C): 01836 mm3 Left Atrium Systolic Volume(A4C): 33274 mm3 Mitral Valve Mitral Valve E-Wave Peak [...] by: Eleno Jenkins M.D. on 12/21/2021 at 13:03[facility] HospitalPOINT [facility] GLUCOSEon 32-75-3543Emdcqtf [Mass/Vol]169 mg/dLCritically xtwv19-466YrkACMC Healthcare System on above:Performed By: #### PTTHEP #### [facility] [address] [place] [address] Dr. Jose GonsalesGlucose [Mass/Vol]128 mg/dLCritically ttce63-730BrqACMC Healthcare System on above:Performed By: #### PT #### [facility] [address] [address] [address] Jose GonsalesGlucose [Mass/Vol]151 mg/dLCritically euho43-232Wif Chris HospitalComment on above:Performed By: #### PT #### [facility] [address] [address] [address] Jose GonsalesGlucose [Mass/Vol]136 mg/dLCritically oiqp86-576Kyi [facility] HospitalComment on above:Performed By: #### PTTHEP #### [facility] [address] [address] [address] Jose GonsalesPROF 14(COMP METB)on 85-67-8640Wqdkyed [Mass/Vol]3.3 g/dL Critically low3.4-5.0The [facility] HospitalComment on above:Performed By: #### BNP, CMP #### [facility] [address] [place] [address] Dr. Jose GonsalesAlbumin/Globulin [Mass ratio]0.9 {ratio}NormalThe [facility] HospitalComment on above:Performed By: #### BNP, CMP #### [facility] [address] [place] [address] Dr. Jose Lei [Catalytic activity/Vol]53 U/JBuhifb58-172Zwc [facility] HospitalComment on above:Performed By: #### BNP, CMP #### [facility] [address] [place] [address] Dr. Jose Agarwal [Catalytic activity/Vol]22 U/VZyzwgp97-26Kcn [facility] HospitalComment on above:Performed By: #### BNP, CMP #### [facility] [address] [place] [address] Dr. Jose Mc gap [Moles/Vol]12.8 mmol/LNormalThe [facility] Comment on above:Performed By: #### BNP, CMP #### [facility] [address] [place] [address] Dr. Jose GonsalesAST [Catalytic activity/Vol]21 U/FEddexe89-29Zzq [facility] HospitalComment on above:Performed By: #### BNP, CMP #### [facility] [address] [place] [address] Dr. Jose GonsalesBilirubin [Mass/Vol]0.5 mg/dLNormal0.2-1.3[facility] Comment on above:Performed By: #### BNP, CMP #### [facility] [address] [place] [address] Dr. Jose GonsalesCalcium [Mass/Vol]8.7 mg/dLNormal8.5-10.1[facility] Comment on above:Performed By: #### BNP, CMP #### [facility] [address] [place] [address] Dr. Jose GonsalesChloride [Moles/Vol]104 mmol/EZpcfnq19-409OirUniversity Hospitals Samaritan Medical Center Comment on above:Performed By: #### BNP, CMP #### [facility] [address] [place] [address] Dr. Jose GonsalesCO2 [Moles/Vol]25.8 mmol/TWezezp16.0-30.0[facility] Comment on above:Performed By: #### BNP, CMP #### [facility] [address] [place] [address] Dr. Jose GonsalesCreatinine [Mass/Vol]2.02 mg/dLCritically high0.66-1.25ThMemorial Health System Selby General HospitalComment on above:Performed By: #### BNP, CMP #### [facility] [address] [place] [address] Dr. Jose MinaGFR-AF LFOQKIXQ98 mL/min/1.43r1Umcasneqju low>=60The [facility]as HospitalComment on above:Performed By: #### BNP, CMP #### [facility] [address] [place] [address] Dr. Jose MinaGFR-NON AF MWEXBSDL34 mL/min/1.59q8Uqaelfpuze low>=60[facility]itan Medical CenterComment on above:Performed By: #### BNP, CMP #### [facility] [address] [place] [address] Dr. Jose GonsalesGlobulin (S) [Mass/Vol]3.6 g/dLNormalThMemorial Health System Selby General HospitalComment on above:Performed By: #### BNP, CMP #### [facility] [address] [place] [address] Dr. Jose GonsalesGlucose [Mass/Vol]170 mg/dLCritically nsdj64-219Htn [facility] HospitalComment on above:Performed By: #### BNP, CMP #### [facility] [address] [place] [address] Dr. Jose GonsalesPotassium [Moles/Vol]4.6 mmol/LNormal3.4-5.0The [facility] Comment on above:Performed By: #### BNP, CMP #### [facility] [address] [place] [address] Dr. Jose GonsalesProtein [Mass/Vol]6.9 g/dLNormal6.1-8.2The [facility] Comment on above:Performed By: #### BNP, CMP #### [facility] [address] [place] [address] Dr. Jose GonsalesSodium [Moles/Vol]138 mmol/UGrvqsf787-863Zeu [facility] Comment on above:Performed By: #### BNP, CMP #### [facility] [address] [place] [address] Dr. Jose GonsalesUrea nitrogen [Mass/Vol]40.0 mg/dLCritically high7.0-18.0The [facility] HospitalComment on above:Performed By: #### BNP, CMP #### [facility] [address] [place] [address] Dr. Jose Marin nitrogen/Creatinine [Mass ratio]19.8 mg/mgNoHolzer Medical Center – JacksonComment on above:Performed By: #### BNP, CMP #### [facility] [address] [place] [address] Dr. Jose GonsalesPROTIMEvioletta [id number] Coag (PPP) [Relative time]1.08 {INR} NormalUniversity Hospitals Samaritan Medical CenterComment on above:Performed By: #### PT #### [facility] [address] [place] [address] Dr. Jose Anne GUIDELINESSEE BELOWTuscarawas HospitalComment on above:Result Comment: DESIRED INR: 2.0 - 3.0 CONDITIONS NOT LISTED BELOW 2.5 - 3.5 FOR PROSTHETIC HEART VALVE REPLACEMENT 2.5 - 3.5 RECURRENT THROMBOSIS Performed By: #### PT #### [facility] [address] [place] [address] Dr. Jose Cookg (PPP) [Time]11.6 sNormal9.0-11.6The [facility] Comment on above:Performed By: #### PT #### [facility] [address] [place] [address] Dr. Jose Root HEPARIN MONITORon [id number] Coag (Bld) [Time]55.6 s Critically high39.5-54.2The [facility]as HospitalComment on above:Result Comment: test repeatedPerformed By: #### HPYLLC #### [facility] [address] [place] [address] Dr. Jose Ordoñez Coag (Bld) [Time]25.6 sCritically low39.5-54.2The [facility]as HospitalComment on above:Performed By: #### PTTHEP #### [facility] [address] [place] [address] Dr. Jose Ko4on [id number] [Mass/Vol]6.40 ug/dLNormal5.53-11.00The [facility]as HospitalComment on above:Performed By: #### HPYLLC #### [facility] [address] [place] [address] Dr. Jose Tinoco 67-04-2705OZE2.660 uIU/mLNormal0.470-4.680The [facility] HospitalComment on above:Performed By: #### HPYLLC #### [facility] [address] [place] [address] Dr. Jose Jackson [facility] BELOWNormLakeHealth TriPoint Medical Centere [facility] HospitalComment on above: Result Comment: <0.34 UIU/ml HYPERTHYROID 0.34-5.60 UIU/ml EUTHYROID >5.60 UIU/ml HYPOTHYROIDPerformed By: #### HPYLLC #### [facility] [address] [place] [address] Dr. Jose Marmolejo W MANUAL DIFFon [id number] LYMPH #NormalThe Freer HospitalComment on above:Performed By: #### MONICO #### [facility] [address] [place] [address] Dr. Jose GonsalesATYPICAL LYMPH %NormalThe Freer HospitalComment on above: Performed By: #### MONICO #### [facility] [address] [address] [address] Jose Galeana #0.1 103/ulNormal0.0-0.3The Freer HospitalComment on above:Performed By: #### MONICO #### [facility] [address] [place] [address] Dr. Jose Galeana %1 %Normal0-5The [facility] HospitalComment on above:Performed By: #### MONICO #### [facility] [address] [place] [address] Dr. Jose Rosales #0.00 103/ulNormal0.00-0.10The [facility] HospitalComment on above:Performed By: #### MONICO #### [facility] [address] [place] [address] Dr. Jose Rosales %0.0 %Critically low0.2-2.0The [facility] HospitalComment on above:Performed By: #### MONICO #### [facility] [address] [place] [address] Dr. Jose Gasca #NormalThe Freer HospitalComment on above:Performed By: #### MONICO #### [facility] [address] [place] [address] Dr. Jose Gasca %NormalHighland District Hospital HospitalComment on above:Performed By: #### MONICO #### [facility] [address] [place] [address] Dr. Jose JonesRRECTED WBCNormal4.0-11.0The Freer HospitalComment on above: Performed By: #### MONICO #### [facility] [address] [place] [address] Dr. Jose Keane #0.00 103/ulNormal0.00-0.70The [facility] HospitalComment on above:Performed By: #### MONICO #### [facility] [address] [place] [address] Dr. Jose Keane%0.0 %Critically low0.9-7.0The [facility] HospitalComment on above:Performed By: #### MONICO #### [facility] [address] [place] [address] Dr. Jose GonsalesHCT47.0 %Tpjmgr60.0-54.0The [facility] HospitalComment on above: Performed By: #### MONICO #### [facility] [address] [place] [address] Dr. Jose GonsalesHGB15.6 g/qlBpcrfr52.0-18.0The [facility] HospitalComment on above: Performed By: #### MONICO #### [facility] [address] [place] [address] Dr. Jose Mckeon #0.43 103/ulCritically low1.20-3.80The [facility] Comment on above:Performed By: #### MONICO #### [facility] [address] [place] [address] Dr. Jose Mckeon%6.0 %Critically low20.5-60.0The [facility] HospitalComment on above:Performed By: #### MONICO #### [facility] [address] [place] [address] Dr. Jose MichelleH30.8 xlIbyatu19.9-34.0The [facility] HospitalComment on above: Performed By: #### MONICO #### [facility] [address] [place] [address] Dr. Jose MichelleHC33.2 g/bnVkmbjc97.9-35.2The [facility] HospitalComment on above:Performed By: #### MONICO #### [facility] [address] [place] [address] Dr. Jose MichelleV92.9 rUYuyark58.0-94.0TriHealthment on above: Performed By: #### MONICO #### [facility] [address] [address] [address] Jose BurgosOCYTE #NormalUniversity Hospitals Samaritan Medical CenterCommymichigan medical center on above: Performed By: #### MONICO #### [facility] [address] [address] [address] Jose BurgosOCYTE %NormalUniversity Hospitals Samaritan Medical CenterComment on above: Performed By: #### MONICO #### [facility] [address] [address] [address] Jose Loving#0.29 103/ulCritically low0.30-0.80[facility] Comment on above:Performed By: #### MONICO #### [facility] [address] [place] [address] Dr. Jose Loving%4.0 %Normal1.7-12.0[facility]itan Medical CenterComment on above: Performed By: #### MONICO #### [facility] [address] [place] [address] Dr. Jose GonsalesMPV10.1 fLNormal9.5-13.5ThMemorial Health System Selby General HospitalCommymichigan medical center on above: Performed By: #### MONICO #### [facility] [address] [place] [address] Dr. Jose HendricksOCYTE #NormalUniversity Hospitals Samaritan Medical CenterCommymichigan medical center on above:Performed By: #### CBCDANIEL #### [facility] [address] [place] [address] Dr. Jose Patel %NormalUniversity Hospitals Samaritan Medical CenterCommymichigan medical center on above:Performed By: #### CBCDANIEL #### [facility] [address] [place] [address] Dr. Jose GonsalesNRBCNormalThMemorial Health System Selby General HospitalCommymichigan medical center on above:Performed By: #### MONICO #### [facility] [address] [place] [address] Dr. Jose GonsalesPLT139 103/ulCritically rgm048-458Tyg Freer HospitalComment on above:Result Comment: no plt clumpingPerformed By: #### CBCMAN #### [facility] [address] [address] [address] Jose DeckerC5.06 106/ulNormal4.70-6.10The [facility] HospitalComment on above:Performed By: #### CBCMAN #### [facility] [address] [address] [address] Jose GonsalesRDW13.0 %Kyvhkb56.0-15.0The [facility] HospitalComment on above: Performed By: #### CBCMAN #### [facility] [address] [address] [address] Jose Multani #6.41 103/ulNormal1.40-6.50The [facility] HospitalComment on above:Performed By: #### CBCMAN #### [facility] [address] [address] [address] Jose Multani %89.0 %Critically high43.0-75.0The [facility] HospitalComment on above:Performed By: #### CBCMAN #### [facility] [address] [address] [address] Jose GonsalesWBC7.2 103/ulNormal4.0-11.0The [facility] HospitalComment on above: Performed By: #### CBCMAN #### [facility] [address] [address] [address] Jose GonsalesCT HEAD WO CONon [id number] HEAD WO CONEXAMINATION: CT HEAD WO CON, [...] Electronically authenticated by: ORAL SMALLS Date: 2021-12-20 19:44[facility] HospitalCovid-19 PCR (CVDEDWARD P. [facility])on [id number]-CoV-2 (COVID-19) RNA JORDON+probe Ql (Unsp spec)Not detectedNormalNOT DETECTEDThe [facility] Comment on above:Result Comment: When diagnostic testing is negative, the possibility of a false negative should be considered in the context of a patient's recent exposures and the presence of clinical signs and symptoms consistent with SARS-CoV-2. This test is not yet approved or cleared by the [place] Food and Drug Administration (FDA). This test was developed by [employer], [place], [place]. The performance characteristics of this test were validated by [facility]. The results are not intended to be used as the sole means for clinical diagnosis or patient management decisions. The [facility] is authorized under Clinical Laboratory Improvement [...] for this test is supported by the [place] of Health and Human Service's declaration that [...] may no longer be used).Performed By: #### CVDEDWARD [facility] #### [facility] [address] [place] [address] Dr. Jose RegaladoNZA Bertrand AND B AGon [id number] BELOWTuscarawas HospitalComment on above:Result Comment: Negative for Flu A protein angiten. Infection due to Flu A cannot be ruled out. FluA angiten in the sample may be below the detection limit of the test.Performed By: #### PT #### [facility] [address] [place] [address] Dr. Jose SharpUBRENHSSTEFFEN Veterans Health AdministrationComment on above: Result Comment: Negative for Flu B protein antigen. Infection due to Flu B cannot be ruled out. FluB antigen in the sample may be below the detection limit of the test.Performed By: #### PT #### [facility] [address] [place] [address] Dr. Jose Thurston AGNegativeNormalNEGATIVE SEE COMMENTThe [facility] HospitalComment on above:Performed By: #### PT #### [facility] [address] [place] [address] Dr. Jose Dailey AGNegativeNormalNEGATIVE SEE COMMENTThe [facility] HospitalComment on above:Performed By: #### PT #### [facility] [address] [place] [address] Dr. Jose GonsalesINTERNAL CONTROLSWithin Normal LimitsNormalWithin Normal Limits The [facility] HospitalComment on above:Performed By: #### PT #### [facility] [address] [place] [address] Dr. Jose GonsalesPROF CHEM 8 (BAS METB)on [id number] gap [Moles/Vol]16.9 mmol/LNormalUniversity Hospitals Samaritan Medical CenterComment on above:Performed By: #### HPYLLC #### [facility] [address] [place] [address] Dr. Jose GonsalesCalcium [Mass/Vol]9.3 mg/dLNormal8.5-10.1[facility] Comment on above:Performed By: #### HPYLLC #### [facility] [address] [place] [address] Dr. Jose GonsalesChloride [Moles/Vol]102 mmol/PBygiuh13-741YrsUniversity Hospitals Samaritan Medical Center Comment on above:Performed By: #### HPYLLC #### [facility] [address] [place] [address] Dr. Jose GonsalesCO2 [Moles/Vol]23.0 mmol/JHnyxhd13.0-30.0[facility] Comment on above:Performed By: #### HPYLLC #### [facility] [address] [address] [address] Jose GonsalesCreatinine [Mass/Vol]2.41 mg/dLCritically high0.66-1.25The [facility] HospitalComment on above:Performed By: #### HPYLLC #### [facility] [address] [place] [address] Dr. Garcia ChangEGFR-AF TLGJLUBK04 mL/min/1.00v8Lywqtpirdl low>=60[facility] Medical CenterComment on above:Performed By: #### HPYLLC #### [facility] [address] [place] [address] Dr. Jose MinaGFR-NON AF EPNUMUAI10 mL/min/1.28m4Voougbwwlp low>=60The [facility] HospitalComment on above:Performed By: #### HPYLLC #### [facility] [address] [place] [address] Dr. Jose GonsalesGlucose [Mass/Vol]239 mg/dLCritically cons41-060TgbUniversity Hospitals Samaritan Medical CenterComment on above:Performed By: #### HPYLLC #### [facility] [address] [place] [address] Dr. Jose GonsalesPotassium [Moles/Vol]4.9 mmol/LNormal3.4-5.0[facility] Comment on above:Performed By: #### HPYLLC #### [facility] [address] [place] [address] Dr. Jose GonsalesSodium [Moles/Vol]137 mmol/NLdlccs274-240WbaUniversity Hospitals Samaritan Medical Center Comment on above:Performed By: #### HPYLLC #### [facility] [address] [place] [address] Dr. Jose GonsalesUrea nitrogen [Mass/Vol]46.0 mg/dLCritically high7.0-18.0The [facility] HospitalComment on above:Performed By: #### HPYLLC #### [facility] [address] [place] [address] Dr. Jose GonsalesUrea nitrogen/Creatinine [Mass ratio]19.1 mg/mgNoHolzer Medical Center – JacksonComment on above:Performed By: #### HPYLLC #### [facility] [address] [place] [address] Dr. Jose Valdez, HIGH SENSITIVITYon 93-59-6322OMEIWV268.7 pg/mL Critically high4.0-42.2The [facility] HospitalComment on above:Result Comment: CUT-OFF POINTS HAVE BEEN ESTABLISHED BASED ON THE FOURTH UNIVERSAL DEFINITIONS OF MYOCARDIAL INFARCTION. THE UPPER REFERENCE LIMIT (URL) OF TROPONIN, DEFINED THE 99TH PERCENTILE OF cTnI DISTRIBUTION IN A REFERENCE POPULATION, HAS BEEN CONFIRMED THE DECISION THRESHOLD FOR AK DIAGNOSIS. test repeatedPerformed By: #### PT #### [facility] [address] [place] [address] Dr. Jose GonsalesHSTROP696.3 pg/mLCritically high4.0-42.2The [facility] Comment on above:Result Comment: CUT-OFF POINTS HAVE BEEN ESTABLISHED BASED ON THE FOURTH UNIVERSAL DEFINITIONS OF MYOCARDIAL INFARCTION. THE UPPER REFERENCE LIMIT (URL) OF TROPONIN, DEFINED THE 99TH PERCENTILE OF cTnI DISTRIBUTION IN A REFERENCE POPULATION, HAS BEEN CONFIRMED THE DECISION THRESHOLD FOR AK DIAGNOSIS. test repeatedPerformed By: #### HPYLLC #### [facility] [address] [place] [address] Dr. Jose GonsalesXR CHEST 1 Von [id number] CHEST 1 VEXAM: XR CHEST 1 V, 12/20/2021 HISTORY: SHORTNESS OF BREATH COMPARISON: Previous x-ray from 05/24/2021. TECHNIQUE: Portable AP upright view of the chest. FINDINGS: Moderate cardiomegaly. Status post sternotomy. No focal consolidation or pulmonary edema. Low lung volumes. Unremarkable bony structures. No acute cardiopulmonary findings. IMPRESSION: Moderate cardiomegaly. No significant interval change. Electronically authenticated by: MARIANELA HERRING Date: 2021-12-20 20:44[facility] METABOLIC PANELon [id number] [Mass/Vol]4.4 g/dL Normal3.5-5.7The [facility] Medical CenterComment on above:Performed By: #### [id number] #### [facility] [address] [place] [address], USAALKALINE RCBQWW94 IU/LRyzgod24-238Ayq [facility] CenterComment on above:Performed By: #### [id number] #### [facility] [address] [place] [address], USAALT [Catalytic activity/Vol]19 U/LNormal7-52The [facility] Medical CenterComment on above:Performed By: #### [id number] #### [facility] [address] [place] [address], USAAST [Catalytic activity/Vol]18 U/SMbjemt78-20Pyj [facility] CenterComment on above:Performed By: #### [id number] #### [facility] [address] [place] [address], USABilirubin [Mass/Vol]0.5 mg/dLNormal0.3-1.0The [facility] CenterComment on above:Performed By: #### [id number] #### [facility] [address] [place] [address], USACalcium [Mass/Vol]9.6 mg/dLNormal8.6-10.3The [facility] CenterComment on above:Performed By: #### [id number] #### [facility] [address] [place] [address], USAChloride [Moles/Vol]107 mmol/ZJsrvzh16-603Zgp [facility] CenterComment on above:Performed By: #### [id number] #### [facility] [address] [place] [address], USACO2 [Moles/Vol]26 mmol/YLjbkts17-92Cor [facility] CenterComment on above:Performed By: #### [id number] #### [facility] [address] [place] [address], USACreatinine [Mass/Vol]2.01 mg/dLHigh0.70-1.30The [facility] CenterComment on above:Performed By: #### [id number] #### [facility] [address] [place] [address], USAeGFR- Taabgcql23 ml/min/1.73sq mAbnormal>60The [facility] Medical CenterComment on above:Performed By: #### [id number] #### [facility] [address] [place] [address], USAeGFR- non- Lajjiojj22 ml/min/1.73sq mAbnormal>60The [facility] CenterComment on above:Performed By: #### [id number] #### [facility] [address] [place] [address], USAGlucose [Mass/Vol]130 mg/lZIeat40-379Xko [facility] CenterComment on above:Performed By: #### [id number] #### [facility] [address] [place] [address], USAPotassium [Moles/Vol]5.1 mmol/LNormal3.5-5.1The [facility] CenterComment on above:Performed By: #### [id number] #### [facility] [address] [place] [address], USAProtein [Mass/Vol]7.1 g/dLNormal6.0-8.3The [facility] CenterComment on above:Performed By: #### [id number] #### [facility] [address] [place] [address], USASodium [Moles/Vol]139 mmol/UQpghxm408-453Cld [facility] CenterComment on above:Performed By: #### [id number] #### [facility] [address] [place] [address], USAUrea nitrogen [Mass/Vol]37 mg/dLHigh7-25The [facility] CenterComment on above:Performed By: #### [id number] #### [facility] [address] [place] [address], USAHEMOGLOBIN A1Con 25-82-0810Dilsyfm [Moles/Vol]157 mmol/L NormalThe [facility] Medical CenterComment on above:Performed By: #### [id number] #### [facility] [address] [place] [address], QXZYzV9j (Bld) [Mass fraction]7.1 %High4.0-6.0The [facility] Medical CenterComment on above:Performed By: #### [id number] #### [facility] [address] [place] [address], USAHIV VIRAL LOADon [id number] QNT RNA PCR:Not detected NormalThe [facility] Medical CenterComment on above:Result Comment: The Aptima HIV Quant assay is a real-time induction brazer-mediated amplification (TMA) test which has a dynamic [...] the presence of HIV-1 infection.Performed By: #### [id number] #### [facility] [address] [place] [id number], USALOG 10 COPIESNot detectedNormalThe [facility] Medical CenterComment on above:Performed By: #### [id number] #### [facility] [address] [place] [address], USAURINALYSISon 82-83-8722Gxrsemnxjy (U)CLEARNormalCLEARThe [facility] CenterComment on above:Performed By: #### [id number] #### [facility] [address] [place] [address], USABilirubin Ql (U)NegativeNormalNEGATIVEThe [facility] Medical CenterComment on above:Performed By: #### [id number] #### [facility] [address] [place] [address], USAColor (U)YELLOWNormalYELLOWThe [facility] Medical CenterComment on above:Performed By: #### [id number] #### [facility] [address] [place] [address], USAEPISNONE SEENNormalFEW,OCC,NONE SEENThe [facility] CenterComment on above:Performed By: #### [id number] #### [facility] [address] [place] [address], USAGlucose Ql (U)NegativeNormalNEGATIVEThe [facility] CenterComment on above:Performed By: #### [id number] #### [facility] [address] [place] [address], USAHemoglobin Ql (U)TRACEAbnormalNEGATIVEThe [facility] CenterComment on above:Performed By: #### [id number] #### [facility] [address] [place] [address], USAKETONENegativeNormalNEGATIVEThe [facility] CenterComment on above:Performed By: #### [id number] #### [facility] [address] [place] [address], USALEUK ESTERNegativeNormalNEGATIVEThe [facility] Medical CenterComment on above:Performed By: #### [id number] #### [facility] [address] [place] [address], USANitrite Ql (U)NegativeNormalNEGATIVEThe [facility] Medical CenterComment on above:Performed By: #### [id number] #### [facility] [address] [place] [address], [facility] HEALTH CENTERpH (U)6.0 [pH]Normal5.0-8.0The [facility] Medical CenterComment on above:Performed By: #### [id number] #### [facility] [address] [facility] [place] [address], USAProtein Ql (U)NegativeNormalNEGATIVEThe [facility] CenterComment on above:Performed By: #### [id number] #### [facility] [address] [place] [address], USARBC0-2AbnormalNONE SEENThe [facility] CenterComment on above:Performed By: #### [id number] #### [facility] [address] [place] [address], USASPEC GRAV1.786Odzp8.015-1.020The [facility] Medical CenterComment on above:Performed By: #### [id number] #### [facility] [address] [facility] [place] [address], USAWBC UANONE SEENNormalNONE SEENThe University Hospitals Beachwood Medical CenterComment on above:Performed By: #### [id number] #### [facility] [address] [facility] [place] [address], [facility] Encounters Encounter DateEncounter TypeCare ProviderFacilityStart: 10-49-2776vklenscfsyVZSK [facility] Hospitaltart: 07-01-2025 End: 51-33-2166qxlzrpofiqHciqvlz R NILLFacility: [facility] Centertart: 07-01-2025 End: 36-38-3779Vevnmlk encounter procedureMichael R NILL [phone]-ArjjyDayton Osteopathic Hospital [facility] [place] Start: 80-37-1233ndiftymqoiHOIPMetroHealth Cleveland Heights Medical Centertart: 05-13-2025 End: 49-21-4969gvsjchkoerKNQPUSR A GEORGESCUUniWood County Hospital Start: 23-67-6051cmpftwtnjrMYAWCherrington Hospitaltart: 38-35-6037iohzkapvrrKXQLCherrington Hospitaltart: 04-17-2025 End: 05-92-4381wqogaozbpiUGETQYNFlower Hospitaltart: 42-03-7068rjiuipzptoSDTECherrington Hospitaltart: 31-49-7492gfougkqyrwGDQVCherrington Hospitaltart: 76-83-5874cypkheejyzFBZFCherrington Hospitaltart: 07-76-7039ajbyfaeyvnUJTVCherrington Hospitaltart: 86-29-8545dsuuzmwwxnTOBGCherrington Hospitaltart: 99-70-8291knxcdiordxWAGIEURProtestant Hospitaltart: 11-05-2024 End: 77-67-5655ftbmbejrdmLHIRVVC A [facility] Start: 10-29-2024 End: 67-18-7852fbzdnskdvsYOVDC [facility] Northtart: 10-99-4609habnvqpkwoOLUYMetroHealth Cleveland Heights Medical Centertart: 15-63-5496sdhiplspejXLJKCherrington Hospitaltart: 92-58-4001fpbnpufeieDMDFCherrington Hospitaltart: 06-31-9958hzpgdlrawoHZNQCherrington Hospitaltart: 63-42-5838jjvkehyqzrZOWH CHACKOFacility:L3Majng: 09-14-2022 End: 26-18-8860fuqpyydpmiDQ JONAS HOYFacility:B5Riqkr: 68-97-8169edzjhuuoueOY ELENO MOUKARBELFacility:W2Ibzmt: 05-16-2022 End: 41-08-3115aztnubaqstHK GEORGE MOUKARBELFacility:J8Bpwja: 04-05-2022 Encounter for other preprocedural examinationDR ELENO KAMARAMcKitrick Hospital HospitalStart: 96-97-0057Ofrksbfni for preprocedural laboratory examinationDR ELENO KAMARAMcKitrick Hospital HospitalStart: 04-05-2022 End: 05-73-2860lqglfaymyiYHZCAUJ HOYFacility:UTMCStart: 04-01-2022 End: 75-05-5418cbjamrveoePS ELENO FATIMAELFacility:K7Eeaep: 04-01-2022 End: 49-52-7103Fmumweygc for other preprocedural examination ELENO JENKINS Facility:R3Quoqb: 03-21-2022 End: 34-90-6167rsednauteoCU GEORGE MOUKARBELFacility:U0Wtodg: 01-11-2022 ambulatoryMOHAMAD ALGHOTHANIFacility:P5Lovqk: 01-03-2022 End: 52-67-0120ivbgmoxrzyRE ELENO FATIMAELFacility:V2Ksfsl: 12-24-2021 End: 05-08-0649qhfypvurbgQL JONAS HOYFacility:L7Rnmwe: 12-20-2021 End: 06-24-7505lowbytmmeoRF JONAS HOYFacility:H1 Procedures DateProcedureProcedure DetailPerforming ClinicianStart: 82-70-2751LRI screening DR ELENO JENKINSComment on above:Performed By: #### PTTHEP #### [facility] [address] [place] [address] Dr. Jose GonsalesStart: 96-31-9059VfpypapgxnbEyiyxwu NILL Start: 55-12-2413Tzaptz of umbilical herniaMichael NILL Cardiac catheterizationMichael NILL Coronary artery bypass graftMichael NILL Implantation of insertable loop recorderMichael NILL Incision and drainage of abscessMichael NILL Comment on above:thighLaparoscopic cholecystectomy Jose NILL Immunizations Immunization DateImmunizationNotesCare CtbzxbqnKvdtggly93-99-3291horjqywip virus vaccine, unspecified formulationMichael NILL [phone]-SayqiDayton Osteopathic Hospital [facility] [place] 20-76-6583JTAP-CoV-2 (COVID-19) mRNA-1273 vaccineMichael NILL [phone]-SnfejDayton Osteopathic Hospital [facility] [place] 27-64-3542AYMI-CoV-2 (COVID-19) mRNA-1273 vaccineMichael NILL [phone]-AtvtdDayton Osteopathic Hospital [facility] [place] Comment on above:Result Comment: 2023-02-08: [id number]-IiR-2 (COVID- 19) mRNA-1273 vaccineMichael NILL [phone]-PobqfDayton Osteopathic Hospital [facility] [place] Comment on above:Result Comment: 2023-02-08: [id number] Payers DatePayer CategoryPayerPolicy [id number] [id number]-[id number] .1.590669.3.57[id number] 2..1.555684.3.57[id number] 2..1.996184.3.57[id number] 2.16.840.1.975228.3.57[id number] 2.16.840.1.816393.3.57[id number] 2.16.840.1.566039.3.57[id number] 2.16.840.1.266572.3.57[id number] 2.16.840.1.384216.3.57[id number] 2.16.840.1.801788.3.57[id number] 2.16.840.1.415667.3.57[id number] 2.16.840.1.656625.3.57[id number] 2.840.1.401901.3.57[id number] 2..840.1.247030.3.579.2.727 Social History DateTypeDetailFacilityStart: 04-57-7994Oesduje smoking statusNever smoked tobacco (finding)[facility] Surgery [place]erTobacco smoking statusNeverThe [facility] Surgery [facility] CenterueSexual OrientationThe [facility] [place] Sex Ass[facility] SexMale (finding)[facility] Clinical Notes 03-21-2022 to 07-01-2025 Note Date & LgziVbxeJbaixepp34-58-7529 NoteGeneral Surgery Office/Clinic Note Chief Complaint consultation [...] mg oral tablet, 10 (more content not included)...[facility] HospitalComment on above:Result Comment: Electronically Signed By: ROSITA LANDEROS, Jose Lewis\Date and Time Signed: 07/01/25 19:41 [id number] Note Medication adherence counselling was provided, including using reminders HIV transmission reviewed Counseled on safe sex, using condoms, U=U, he is not active Continue tivicay and prezcobixUniversity Hospitals Beachwood Medical Center08-19-2025 Note Subjective Patient ID: Parish Contreras is [...] Aptima HIV Quant assay is a real-time induction brazer-mediated amplification (TMA) test which has a dynamic [...] diagnosis 2000. 2001 Kaletra/zer (more content not included)...[facility]08-19-2025 NoteParish Contreras seated comfortably in exam room. Blood [...] initials. Samples sent to lab via clinic aluminizer schedule.[facility]07-24-2025 NoteCardiovascular Medicine [facility] SUBJECTIVE Chief Complaint Patient presents with [...] 0.6 eGFR 11/05/2024 37.7 (more content not included)...[facility]07-24-2025 NotePatient is here today for a 6 [...] exertion. Musculoskeletal: Positive for back pain and stiffness.[facility]07-21-2025 NoteEligibility: Patient meets program eligibility. Documentation turned in 04/14/2025UnMer[facility]. Patient reports daughter typically assist with renewal process. Patient did take down [facility] phone number & email address. Application was completed, will be submitted along with supportive documents when received.[facility]06-24-2025 Note03/18 - [facility] reached out to Patient regarding program eligibility. Patient did not answer, [facility] left a voicemail.[facility]06-24-2025 Note [facility] called patient regarding [facility] eligibility. Patient reports daughter typically assist with renewal process. Patient did take down [facility] phone number & email address. Application was completed, will be submitted along with supportive documents when received.[facility]02-14-2025 Note- Management per PCPUnMercy Health Willard [facility]02-14-2025 Note- Patient to continue on Tivicay and Prezcobix while obtaining routine HIV labs again today. - Medication adherence counselling was provided, including using reminders - HIV transmission reviewed - Counseled on safe sex, using condoms, U=U, the risk of increasing incidence of STDs including syphilisUnMercy Health Willard Hospital02-11-2025 Note Administered Hep A Vaccine per provider order. Pt tolerated injection/medication with no adverse effects. Correct medication verified by a 2nd medical staff collection team lead. Left deltoid, IM.[facility]02-11-2025 Note Attestation signed by Sushila Lucero MD [...] results with borderline viremia. - 2012 vl<40 2014 CD4 = 525/33%; VL<40 - 2015 same [...] Pure hyperglyceridemia Costal chondritis (more content not included)...[facility]02-04-2025 NoteUT Cardiology - [facility] Subjective Parish Contreras is a 69 y.o. year old male [...] Weight loss, unintentional Chronic systolic heart failure ([facility]) Coronary artery disease of bypass graft of [place] heart with stable angina pectoris ([facility]) Stage 3b chronic kidney disease ([facility]) Personal history of colonic polyps Anemia Bradycardia Cardiomyopathy, ischemic Diabetes ([facility]) History of myocardial infarction Hx-TIA (transient ischemic attack) Peripheral polyneuropathy Paroxysmal A-fib ([facility]) Atherosclerotic heart disease Cortical blindness Preventative health care Primary osteoarthritis of both knees Cerebral infarction ([facility]) Displacement of lumbar intervertebral disc without myelopathy Lumbar hernia Thrombophilia ([facility]) HPI Patient has history of coronary artery [...] Diagnosis Date Abnormal ECG Arrhythmia Atrial fibrillation ([facility]) Back pain herniated disc CHF (congestive heart failure) ([facility]) Coronary artery disease Diabetes ([facility] Heart attack ([facility]) High cholesterol HIV (human immunodeficiency virus infection) ([facility]) Hyperlipidemia Hypertension Hyperthyroidism Immune system disorder ([facility]) Myocardial infarction ([facility]) Neuropathy Stroke (cerebrum) ([facility]) Past Surgical History: Procedure Laterality Date CHOLECYSTECTOMY [...] Never BSA 2.17 m??? (more content not included)...[facility]02-03-2025 Note HIV Quantitative RNA Date Value 05/07/2024 [...] 06/28/2011, 05/07/2024 Unspecified Sars-Cov-2 Vaccination 12/22/2020, 01/19/2021, 09/15/2021[facility]06-27-2022 NoteCARDIAC STRESS TEST Requesting Physician: Procedure Date:03/21/2022 Lexiscan Stress Test with Myocardial Perfusion Imaging performed at the [facility] on 03/21/2022. Informed consent was obtained. [...] Myocardial perfusion images will be reported separately. PSYCHIATRIC Signed and Approved by: DR ELENO JENKINS 03/29/2022 20:54:00[facility] HospitalEvaluation + Plan note No data available for this section [facility] [facility] Discharge instructions No data available for this section [facility] Progress note No data available for this section [facility] Summary Purpose Family History No Family History [...] and content) DATE CREATED AUTHOR 04/13/2022 [facility] DATE CREATED AUTHOR AUTHOR'S ORGANIZ ATION 09/26/2022 [facility] DATE CREATED AUTHOR AUTHOR'S ORGANIZ ATION 07/02/[address] [facility] DATE CREATED AUTHOR AUTHOR'S ORGANIZ ATION 07/19/2025 [facility] Patient Care team informatio n (unrecognized section and content) Personnel Name: Jonas Sheets MD Address: [address] [place] [address] [employer]: FOR RECORDS PERTAINING TO PATIENTS WHO [...] BE BASED ON THE PRIMARY CLINICAL RECORDS. [facility] [employer]in [facility]. provides no warranty or guarantee of the accuracy or completeness of information in this document.
[2025-07-23 08:15] VITALS: BP 168/84; PULSE 57; TEMP 36.1; O2SAT 99; BMI 28.9
[2025-07-23 10:36] VITALS: BP 118/66; PULSE 60; TEMP 36.3; O2SAT 97
[2025-07-23 10:50] VITALS: BP 120/80; PULSE 55; O2SAT 96
[2025-07-23 11:05] VITALS: BP 131/72; PULSE 52; O2SAT 97
== END 2025-07-23 11:12 | disposition home or self-care (01) ==
LOC: SURGOUT 08:10
PROVIDERS: PCP Family Medicine; Visit Provider Surgery
PROC: (CPT 45385; principal; 2025-07-23 09:20)
DX: Z12.11 Encounter for screening for malignant neoplasm of colon (principal); D12.2 Benign neoplasm of ascending colon; D12.4 Benign neoplasm of descending colon; Z79.01 Long term (current) use of anticoagulants; I48.91 Unspecified atrial fibrillation; Z86.0101 Personal history of adenomatous and serrated colon polyps; E03.9 Hypothyroidism, unspecified; Z86.73 Personal history of transient ischemic attack (TIA), and cerebral infarction without residual deficits; I25.10 Atherosclerotic heart disease of native coronary artery without angina pectoris; Z21 Asymptomatic human immunodeficiency virus [HIV] infection status; Z90.49 Acquired absence of other specified parts of digestive tract; Z79.84 Long term (current) use of oral hypoglycemic drugs; I12.9 Hypertensive chronic kidney disease with stage 1 through stage 4 chronic kidney disease, or unspecified chronic kidney disease; N18.9 Chronic kidney disease, unspecified; E11.22 Type 2 diabetes mellitus with diabetic chronic kidney disease; Z95.1 Presence of aortocoronary bypass graft; E78.5 Hyperlipidemia, unspecified; N40.0 Benign prostatic hyperplasia without lower urinary tract symptoms
CPT/HCPCS: 45385; 36415; 82948; 88305; J2704

== ENCOUNTER 2025-09-02 13:49 | Outpatient (OUT) | payer MEDICARE, SELFPAY ==
--- OUTSIDE RECORDS SUMMARY | 2025-09-02 13:57 | XMS_ITS | CCD ---
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 Name Role Phone JONAS SHEETS Primary Care Unavailable JONAS SHEETS Referring Unavailable ELENO JENKINS V Admitting Unavailable MOUKARBCHAO, ELENO Cuevas Attending Unavailable MOUKARBEL, DR JOHANSEN Consulting Unavailable [...] Care Unavailable MOUKARBEL, DR JOHANSEN Admitting Unavailable ALGHOTHTREVON DE LUNA Admitting Unavailable HOY, DR MCDANIEL Primary Care Unavailable ALGTREVON FRIEDMAN Attending Unavailable MOUKARBEL, DR JOHANSEN Attending Unavailable HOY, DR MCDANIEL Primary Care Unavailable CENTRAHOMA, DR BRIAN Cuevas Consulting Unavailable MOUKARBEL, DR JOHANSEN Admitting Unavailable MOUKARBEL, DR JOHANSEN Consulting Unavailable Jonas Sheets Primary Care Physician [phone] Rosita LANDEROS, Jose He Attending Provider [phone] Jose Infante Attending Unavailable Nill, Jose He Admitting Unavailable WILI KAUR Attending Unavailable SHERRON, ARLEN Referring Unavailable GEORGESCU, CEASAR Thurston Attending Unavailable SHERRON, ARLEN Referring Unavailable SHERRON, ARLEN Referring Unavailable SHERRON, ARLEN Referring Unavailable SHERRON, ARLEN Referring Unavailable GEORGESCU, CEASAR Thurston Attending Unavailable SHERRON, ARLEN Referring Unavailable SHERRON, ARLEN Referring Unavailable SHERRON, ARLEN Referring Unavailable SHERRON, ARLEN Referring Unavailable SHERRON, ARLEN Referring Unavailable SHERRON, ARLEN Referring Unavailable SHERRON, ARLEN Referring Unavailable SHERRON, ARLEN Referring Unavailable MAGGIETWIN Attending Unavailable ROSITA, Jose He Attending Unavailable Jonas Sheets Referring Unavailable NILL, Jose He Attending Unavailable Jonas Sheets Referring Unavailable NILL, Jose He Attending Unavailable ROSITA, Jose He Attending Unavailable Allergies Allergy ClassificationReported Allergen(s)Allergy TypeDate of OnsetReaction(s) Facility (3 sources)liothyronineDrug Qxihgjb00-44-0460Grl [facility] Repository (1 source)StavudineDrug Mvtsmyk87-83-1674Gcw [facility] Repository (4 sources)Ciprofloxacin; Translations: [ciprofloxacin]Drug Oywclcj97-46-8201 Unknown (qualifier value)[facility] (4 sources)Stavudine; Translations: [stavudine]Drug Suvqryt90-54-4479qluiwaj [facility] (3 sources)Sulfonamide; Translations: [sulfa drugs]Drug allergyUnknown (qualifier value)[facility] (4 sources)Ticlopidine; Translations: [ticlopidine]Drug Tlwobjw44-67-7320 Eruption of skin (disorder)[facility] (1 source)Sulfonamides (Antibiotic); Translations: [SULFA (SULFONAMIDE ANTIBIOTICS)]Propensity to adverse reactions to drug (disorder)04-25-2023 [facility] Repository Medications Current Medications MedicationDrug Class(es)DatesSig (Normalized)Sig (Original)apixaban 2.5 mg oral tablet (2 sources)Factor Xa InhibitorStart: 46-67-5843kcpw 1 tablet by mouth once daily Eliquis 2.5 mg oral tablet 2.5 mg = 1 tab(s), Oral, Daily, Refills(s) 0 Start Date: 02/08/23 Status:Ordered Medication Dispense Status: Completed Total Allowed Fills: 1 Fills Dispensed: 0cobicistat 150 mg / darunavir 800 mg oral tablet (2 sources)Protease Inhibitor, Cytochrome P450 3A InhibitorStart: 52-33-2445bpbu 1 tablet by mouth once dailyPrezcobix 800 mg-150 mg oral tablet 1 tab(s), Oral, Daily, Refill(s) 0 Start Date: 02/08/23 Status: Ordered Medication Dispense Status: Completed Total Allowed Fills: 1 Fills Dispensed: 0dolutegravir 50 mg oral tablet (2 sources)Human Immunodeficiency Virus Integrase Strand Transfer Inhibitor Start: 78-53-6071stpf 1 tablet by mouth once dailyTivicay 50 mg oral tablet 50 mg = 1 tab(s), Oral, Daily, Refills(s) 0 Start Date: 02/08/23 Status: Ordered Medication Dispense Status: Completed Total Allowed Fills: 1 Fills Dispensed: 0 empagliflozin 10 mg oral tablet (2 sources)Sodium-Glucose Cotransporter 2 InhibitorStart: 51-39-7134gexb 1 tablet by mouth once daily in the morningJardiance 10 mg oral tablet 10 mg = 1 tab(s), Oral, qAM, Refills(s) 0 Start Date: 02/08/23 Status: Ordered Medication Dispense Status: Completed Total Allowed Fills: 1 Fills Dispensed: 0Fish Oils (2 sources)Start: 61-45-5023pfcr 1 capsule by mouth three times dailyFish Oil 1200 mg oral capsule 1,200 mg = 1 cap(s), Oral, TID, Refills(s) 0 Start Date: 06/17/25 Status: Ordered Medication Dispense Status: Completed Total Allowed Fills: 1 Fills Dispensed: 0Start: 39-21-7382epeq 1 capsule by mouth three times dailyFish Oil 1200 mg oral capsule 1,200 mg = 1 cap(s), Oral, TID, Refills(s) 0 Start Date: 06/17/25 Status: Ordered Repeat number: 124 hr isosorbide mononitrate 30 mg extended release oral tablet (2 sources)Nitrate VasodilatorStart: 29-99-2161cazv 1 tablet by mouth once daily in the morningisosorbide mononitrate 30 mg ER Tab 30 mg = 1 tab(s), Oral, qAM, Refills(s) 0 Start Date: 02/08/23 Status: Ordered Medication Dispense Status: Completed Total Allowed Fills: 1 Fills Dispensed: 0levothyroxine sodium 0.05 mg oral tablet (2 sources)l-ThyroxineStart: 44-48-6270mjsb 1 tablet by mouth once daily levothyroxine 50 mcg (0.05 mg) Tab 50 mcg = 1 tab(s), Oral, Daily, Refills(s) 0 Start Date: 02/08/23Status: Ordered Medication Dispense Status: Completed Total Allowed Fills: 1 Fills Dispensed: 0metFORMIN hydrochloride 1000 mg oral tablet (2 sources)BiguanideStart: 61-28-3665xssr 1 tablet by mouth twice dailymetformin 1000 mg Tab 1,000 mg = 1 tab(s), Oral, BID, Refills(s) 0 Start Date: 02/08/23 Status: Ordered Medication Dispense Status: Completed Total Allowed Fills: 1 Fills Dispensed: 024 hr metoprolol succinate 50 mg extended release oral tablet (2 sources)beta-Adrenergic BlockerStart: 65-58-0547knkcxqljkt 50 mg ER Tab 25 mg = 0.5 tab(s), Oral, Daily, Refills(s) 0 Start Date: 02/08/23 Status: Ordered Medication Dispense Status: Completed Total Allowed Fills: 1 Fills Dispensed: 0 pregabalin 100 mg oral capsule (2 sources)Start: 50-66-0318hwem 1 capsule by mouth twice dailyLyrica 100 mg Cap 100 mg = 1 cap(s), Oral, BID, Refills(s) 0 Start Date: 06/17/25 Status: Ordered Medication Dispense Status: Completed Total Allowed Fills: 1 Fills Dispensed: 0 rosuvastatin calcium 20 mg oral tablet (2 sources)HMG-CoA Reductase InhibitorStart: 62-71-8898urma 1 tablet by mouth once dailyCrestor 20 mg Tab 20 mg = 1 tab(s), Oral, Daily, Refills(s) 0 Start Date: 02/08/23 Status: Ordered Medication Dispense Status: Completed Total Allowed Fills: 1 Fills Dispensed: 0tamsulosin hydrochloride 0.4 mg oral capsule (2 sources)alpha-Adrenergic BlockerStart: 37-81-9719nzmv 1 capsule by mouth once dailyFlomax 0.4 mg Cap 0.4 mg = 1 cap(s), Oral, Daily, Refills(s) 0 Start Date: 02/08/23 Status: Ordered Medication Dispense Status: Completed Total Allowed Fills: 1 Fills Dispensed: 0traMADol hydrochloride 50 mg oral tablet (2 sources)Opioid AgonistStart: 51-16-5969Uzekfr 50 mg Tab as directed, Refills(s) 0 Start Date: 02/08/23 Status: Ordered Medication Dispense Status: Completed Total Allowed Fills: 1 Fills Dispensed: 0 Problems Active Problems Problem ClassificationProblemDateDocumented DateEpisodic/ChronicAbdominal pain (4 sources)Unspecified abdominal pain; Translations: [UNSPECIFIED ABDOMINAL PAIN]Onset: 54-84-3351EtoolqpqLwxwcvtvt and vision defects (2 sources)Legal blindness, as defined in [place]; Translations: [Legal blindness, as defined in [place]]Onset: 41-65-3529ApqodruPzjopea dysrhythmias (15 sources)Unspecified atrial flutter; Translations: [Junctional premature depolarization]Onset: 72-32-6006PtwcyctLgaefeo dysrhythmias (4 sources)Bradycardia; Translations: [Palpitations]Onset: 732832-12-9254 EpisodicChronic kidney disease (2 sources)Chronic kidney disease stage 0N09-45-9341OngauipTatxeav kidney disease (2 sources)Chronic kidney disease; Translations: [Chronic kidney disease, stage 3 unspecified]Onset: 29-35-7399Lqmltiiuluu and hemorrhagic disorders (2 sources)Lyztugmvbbhrq05-94-8913QkkobhfLnmkujahyzdp of device; implant or graft (2 sources)Atherosclerosis of coronary artery bypass graft(s), unspecified, with other forms of angina pectoris; Translations: [Atherosclerosis of coronary artery bypass graft(s), unspecified, with other forms of angina pectoris]Onset: 79-75-0306DnezcpzDkpgidwjbe heart failure; nonhypertensive (4 sources)Chronic systolic heart failure; Translations: [Chronic systolic (congestive) heart failure]Onset: 947492-04-6063MlroxnmAtaaxgpj atherosclerosis and other heart disease (8 sources)Atherosclerotic heart disease of [place] coronary artery without angina pectoris; Translations: [Oldmyocardial infarction]Onset: 12-29-2021 01-04-7850XzhqjahMqqjllvxus and other anemia (1 source)Anemia, unspecified; Translations: [ANEMIA UNSPECIFIED]Onset: 98-84-1002NrlfzqjlQpezbklvwz and other anemia (2 sources)Totjde17-59-5327CnweltkzEeyevpxn mellitus with complications (2 sources)Type 2 diabetes mellitus with unspecified complications; Translations: [Type 2 diabetes mellitus with unspecified complications]Onset: 01-67-2215UdzltrhBiyufbwg mellitus without complication (4 sources)Diabetes mellitus; Translations: [Type 2 diabetes mellitus without complications]Onset: 860462-99-1781KavxsiiXeezuvzbs of lipid metabolism (6 sources)Hyperlipidemia; Translations: [Hypertriglyceridemia]Onset: 11-05-2024 24-06-4692BqydnuiKqudakmll hypertension (5 sources)Essential (primary) hypertension; Translations: [Hypertensive disorder]Onset: 196586-58-6836RnybqniIYY infection (7 sources)Asymptomatic human immunodeficiency virus [HIV] infection status; Translations: [Human immunodeficiency virus infection]Onset: 12-29-2021 26-41-2096OxtplswWghxxqhmdol of prostate (3 sources)Benign prostatic hyperplasia without lower urinary tract symptoms; Translations: [Benign prostatic hyperplasia]Onset: hronic Other and unspecified benign neoplasm (5 sources)History of polyp of colon; Translations: [Personal history of adenomatous and serrated colon polyps]Onset: 40-69-0082GoepvkkxSunuk and unspecified benign neoplasm (1 source)Benign neoplasm of ascending colonOnset: 67-45-3730TfppqcfaKuroi and unspecified benign neoplasm (1 source)Benign neoplasm of descending colonOnset: 94-41-4519MphzjaeiAbzmp and unspecified benign neoplasm (1 source)Benign neoplasm of ascending -23-6643UudiqtkjNgnfy and unspecified benign neoplasm (1 source)Benign neoplasm of descending pudnh95-61-1541FgolmopnSkmxj circulatory disease (2 sources)History of cerebrovascular wycafqvz40-32-3436YmdnhsnxTrxfc eye disorders (2 sources)Cortical jinyawlch11-44-2448IyeuzmmWgdcu nervous system disorders (2 sources)Uacovjgscsthln99-96-3526BhbzyisCggao nutritional; endocrine; and metabolic disorders (2 sources)Body mass index 30+ - -38-7737KfimtauSfkto nutritional; endocrine; and metabolic disorders (2 sources)Obesity caused by energy jniwtwrcx55-93-4926MphgijnUxrbz nutritional; endocrine; and metabolic disorders (1 source)Abnormal weight loss; Translations: [ABNORMAL WEIGHT LOSS]Onset: 50-55-0366FszjaivpPkwpf screening for suspected conditions (not mental disorders or infectious disease) (4 sources)Other abnormal tumor markers; Translations: [Encounter for screening for malignant neoplasm of prostate]Onset: 66-39-2215GceyvoudWahlkhovku and visceral atherosclerosis (2 sources)Peripheral vascular disease, unspecified; Translations: [Peripheral vascular disease, unspecified]Onset: 59-59-3596AajljbmElapifgj codes; unclassified (1 source)Disorientation, unspecified; Translations: [DISORIENTATION UNSPECIFIED]Onset: 89-64-9494EkzoqzyaIqshsrv disorders (5 sources)Hypothyroidism, unspecified; Translations: [Hypothyroidism]Onset: 222834-07-6917XohznuoFqflnlouycml (1 source)CONTACT W/AND (SUSP) EXPOS COVID-19; Translations: [CONTACT W/AND (SUSP) EXPOS COVID-19]Onset: 04-05-2022 Past or Other Problems Problem ClassificationProblemDateDocumented DateEpisodic/ChronicAcute and unspecified renal failure (1 source)Acute kidney failure, unspecified; Translations: [ACUTE KIDNEY FAILURE UNSPECIFIED]Onset: 42-13-6120JympspojJryhngta atherosclerosis and other heart disease (1 source)Presence of aortocoronary bypass graft; Translations: [PRESENCE AORTOCORONARY BYPASS GRAFT]Onset: 48-73-2360VbdeikcfVexizny and fatigue (2 sources)Other fatigue; Translations: [Other fatigue]Onset: 63-26-0320Vvopglda Other aftercare (1 source)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; Translations: [FCI CURRENT USE OF ASPIRIN]Onset: 52-72-2729YnilzekgMddzv aftercare (1 source)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/antiplatelets; Translations: [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 PROJECT MANAGER ANTITHROMBOT/ANTIPLATLETS]Onset: 86-57-9681Fdaafjsm Other aftercare (1 source)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 oral hypoglycemic drugs; Translations: [WEB PROJECT MANAGER USE ORAL HYPOGLYCEMIC DX]Onset: 83-00-2754MkzhvqklJuaoo aftercare (1 source)Other penitentiary (current) drug therapy; Translations: [OTH FCI CURRENT DRUG THERAPY]Onset: 53-11-0049UztagdahBghfp circulatory disease (1 source)Personal history of transient ischemic attack (TIA), and cerebral infarction without residual deficits; Translations: [PERS HX TIA AND CI NO RESID DEFICIT]Onset: 70-95-3507BvlwutugXltas circulatory disease (2 sources)Personal history of other diseases of the circulatory system; Translations: [Personal history of other diseases of the circulatory system] Onset: 38-03-2301EpklqjnkXoqqe hematologic conditions (1 source)Other specified abnormalities of plasma proteins; Translations: [OTH SPEC ABNORM PLASMA PROTEINS]Onset: 66-48-4194XwgvspouXtkrx lower respiratory disease (4 sources)Other forms of dyspnea; Translations: [OTHER FORMS OF DYSPNEA]Onset: 83-35-1739EqqpdtmtUgvao lower respiratory disease (3 sources)Shortness of breath; Translations: [SHORTNESS OF BREATH]Onset: 76-99-3234WbuzwvqoLmfuoege codes; unclassified (1 source)Acquired absence of other specified parts of digestive tract; Translations: [ACQ ABSENCE OTH PART DIGESTV TRACT]Onset: 32-36-3059Alvjsyum Residual codes; unclassified (2 sources)Other specified postprocedural states; Translations: [Other specified postprocedural states]Onset: 92-46-0781Terclbro Results Test NameValueInterpretationReference RangeFacilityAmbulatory Visit Summaryon 51-49-7128Yaoknwqdrl Visit SummaryAmbulatory Visit Summary PARISH CONTRERAS :1955 Visit Date:08/05/2025 Ambulatory Visit Instructions Your Care Team Attending Physician - ROSITA LANDEROS, Jose He Primary Care Physician - Chidi LANDEROS, Jonas This Is Your Medications List apixaban (Eliquis 2.5 mg oral tablet) cobicistat-darunavir [...] (Ultram 50 mg Tab) Procedures Performed Colonoscopy (07/23/2025), Colonoscopy (12/16/2009), Repair of umbilical hernia (12/16/2009), CABG -Coronary artery bypass graft, Cardiac catheterization, Implantation of insertable loop recorder, Incision and drainage of abscess, Laparoscopic cholecystectomy. Medications What How Much When Instructions Unchanged apixaban (Eliquis 2.5 mg oral tablet) 1 Tablets By Mouth Every day Unchanged cobicistat-darunavir (Prezcobix 800 mg-150 mg oral tablet) 1 Tablets By Mouth Every day Unchanged dolutegravir (Tivicay 50 mg oral tablet) 1 Tablets By Mouth Every day Unchanged empagliflozin (Jardiance 10 mg oral tablet) 1 Tablets By Mouth Once a day (in the morning) Unchanged isosorbide mononitrate (isosorbide mononitrate 30 mg ER Tab) 1 Tablets By Mouth Once a day (in the morning) Unchanged levothyroxine (levothyroxine 50 mcg (0.05 mg) Tab) 1 Tablets By Mouth Every day Unchanged metformin (metformin 1000 mg Tab) 1 Tablets By Mouth 2 times a day Unchanged metoprolol (metoprolol 50 mg ER Tab) 0.5 Tablets By Mouth Every day Unchanged omega-3 polyunsaturated fatty acids (Fish Oil 1200 mg oral capsule) 1 Capsules By Mouth 3times a day Unchanged pregabalin (Lyrica 100 mg Cap) 1 Capsules By Mouth 2 times a day Unchanged rosuvastatin (Crestor 20 mg Tab) 1 Tablets By Mouth Every day Unchanged tamsulosin (Flomax 0.4 mg Cap) 1 Capsules By Mouth Every day Unchanged tramadol (Ultram 50 mg Tab) as directed Allergies Cipro (Unknown) stavudine (unknown) sulfa drugs [...] polyps Personal history of colonic polyps Thrombophilia Patient [...] signed up for this yet, please contact [facility] at [phone] to get signed up today. Language Information Language assistance services are available as needed. [facility] Noteon 93-14-8012Yhubqra Surgery Office/Clinic NoteGeneral Surgery Office/Clinic Note Chief Complaint post operative follow up HPI Staff 13 day post operative follow up post colonoscopy with ascending and descending polypectomies. History of Present Illness s/p screening colonoscopy with removal of 2 small tubular adenomas from ascending and descending colon; doing well, denies pain or blood in stools. Review of Systems PHQ Score Initial Depression [...] been reviewed and are negative or noncontributory. Assessment/Plan 1. Benign neoplasm of ascending colon (D12.2: Benign neoplasm of ascending colon) plan surveillance colonoscopy in 5 years as long as patient remains in good health; call sooner if problems/questions. 2. Benign neoplasm of descending colon (D12.4: Benign neoplasm of descending colon) see # 1 Follow-up No qualifying data available Problem List/Past Medical History Ongoing Anemia Atherosclerotic heart disease Atrial fibrillation Atrial flutter Benign neoplasm of ascending colon Benign neoplasm of descending colon BMI 30.0-30.9,adult BPH (benign prostatic hyperplasia) Bradycardia [...] Historical No qualifying data Procedure/Surgical History Colonoscopy (07/23/2025), Colonoscopy (12/16/2009), Repair of umbilical hernia (12/16/2009), CABG -Coronary artery bypass graft, Cardiac catheterization, Implantation of [...] tablet, 10 mg= 1 tab(s), Oral, qAM levothyroxine 50 mcg (0.05 mg) Tab, 50 mcg= 1 tab(s), Oral, Daily Lyrica 100 mg Cap, 100 mg= 1 cap(s), Oral, BID metformin 1000 mg Tab, 1000 mg= 1 tab(s), Oral, BID metoprolol 50 mg ER Tab, 25 mg= 0.5 tab(s), Oral, Daily Prezcobix 800 mg-150 mg oral tablet, 1 tab(s), Oral, Daily Tivicay 50 mg oral tablet, 50 mg= 1 tab(s), Oral, Daily Ultram 50 mg Tab Allergies Cipro (Unknown) stavudine (unknown) sulfa drugs (Unknown) ticlopidine (Rash) Social History Alcohol - Denies Alcohol Use, 02/08/2023 Substance Abuse - Denies Substance Abuse, 02/08/2023 Tobacco Never (less than 100 in lifetime) Tobacco Use:. Never Smokeless Tobacco Use:., 08/05/2025 Family History Diabetes mellitus type 2: Father. Heart disease: Father, Sister and Brother. Hemochromatosis: Father and Brother. Ovarian cancer: Sister. PVD - peripheral vascular disease: Brother. Primary malignant neoplasm of colon: Grandparent. Immunizations Vaccine Date Status Comments influenza virus vaccine, inactivated 09/14/2022 Recorded SARS-CoV-2 (COVID-19) mRNA-1273 vaccine 09/15/2021 Recorded SARS-CoV-2 (COVID-19) mRNA-1273 vaccine 01/19/2021 Recorded 2023-02-08: TPV65 SARS-CoV-2 (COVID-19) mRNA-1273 vaccine 12/22/2020 Recorded 2023-02-08: TPV65 [facility] HospitalComment on above:Result Comment: Electronically Signed By: ROSITA LANDEROS, Jose Lewis\Date and Time Signed: 08/05/25 16:13 EST Reminderson 08-30-0103QhddxiumeGaleqkkqa From: Marva Cardona LPN To: Marii - Clinical; Sent: 08/05/2025 14:52:27 EST Show up: 06/23/2030 07:00:00 EDT Subject: colonoscopy recall Due Date/Time: 07/23/2030 07:00:00 EDT Reminder/Recall Patient due for surveillance colonoscopy 07/23/2030 due to history of tubular adenoma. (2024)[facility]36on 51-57-589963OJX Quantitative RNA Date Value 05/13/2025 <30 copies/mL 05/10/2022 DETECTED BUT <30 COPIES/ML CD4 Abs (cells/mm3) Date Value 05/13/2025 539 Creatinine (mg/dL) Date Value 05/13/2025 1.80 (H) Income on file: Yes Upcoming appointment: 11/11/2025 Last appointment: [facility]/2025[facility] HospitalRefillon [id number] Parish Contreras 1955 M Date Provider Department Center 07/28/2025 [facility] INF Len Heal Family History Problem Relation Age of Onset Heart attack Father Other Sister Heart attack Brother Other Brother Family Status - Relation Status Age at Mother Father Sister Brother Reason for Visit and Comments: Med Refill [[id number]][facility]L Specimen: [id number] Received: 07/23/25-1399 Status: DUANE Ramesh Num: [id number] Spec Type: Surgical Subm Dr: Jose Infante MD FACS Tissues: A Colon Biopsy (ASCENDING COLON POLYP) B Colon Biopsy (DESCENDING COLON POLYP) Procedures: HE/, Gross/Micro L4/2 Age/ Patient Sex Location Account Attending Physician Parish Contreras/M LABELL [id number] Jose Infante MD FACS SPEC NUM: [id number] RECD: 07/23/25 STATUS: DUANE RAMESH NUM: [id number] ANASTASIA: 07/23/[address]: Jose Infante MD FACS ENTERED: 07/23/[address] [facility] [address]: Fartun Perez SPEC TYPE: Surgical DEPT: KENYA REYNOLDS ENTERED BY: [id number] RECV BY: [id number] ORDERED: , Gross/Micro L4/2 ORDERED: , Gross/Micro L4/2 Pathological Diagnosis A. Colon, ascending, polypectomy: - Tubular adenoma. B. Colon, descending, polypectomy: - Tubular adenoma. Clinical Information Ascending and descending colon polyps. Gross Description Part A is received in formalin labeled with the patient's name, date of , and ascending colon polyp are two cuba-pryor, focally erythematous, friable, 0.3 cm in greatest dimension polypoid fragments. The specimen is entirely submitted in a single cassette. (1, ns, [id number]) Part B is received in formalin labeled with the patient's name, date of , and descending colon polyp is a cuba-pryor, focally erythematous, friable, 0.3 cm in greatest dimension polypoid fragment with adherent vegetative material. The polyp is entirely submitted in a single cassette with the vegetative material retained. (1, ns, [id number]) Specimen: [id number] Received: 07/23/25 Status: DUANE Ramesh Num: [id number] Spec Type: Surgical Subm Dr: Jose Infante MD FACS Tissues: A Colon Biopsy (ASCENDING COLON POLYP) B Colon Biopsy (DESCENDING COLON POLYP) Procedures: ARTIS/Tabitha, Gross/Micro L4/2 Patient: Parish Contreras [id number] (Continued) Specimen: [id number] Received: 07/23/25 (Continued) Signed (signature on file) Wilfred Armstrong MD 07/24/25 0943 Specimen: [id number] Received: 07/23/25 Status: DUANE Ramesh Num: [id number] Spec Type: Surgical Subm Dr: Jose Infante MD FACS Tissues: A Colon Biopsy (ASCENDING COLON POLYP) B Colon Biopsy (DESCENDING COLON POLYP) Procedures: HE/Tabitha, Gross/Micro L4/2 Patient: Parish Contreras [id number] (Continued) Specimen: [id number] Received: 07/23/25 (Continued) Microscopic Description A B: Microscopic examination is performed. CPT Codes 73937 x2 Specimen: [id number] Received: 07/23/25 Status: DUANE Ramesh Num: [id number] Spec Type: Surgical Subm Dr: Jose Infante MD FACS Tissues: A Colon Biopsy (ASCENDING COLON POLYP) B Colon Biopsy (DESCENDING COLON POLYP) Procedures: Bari MAK/Elena L4/2 Patient: Parish Contreras [id number] (Continued) Signed (signature on file) Wilfred Armstrong MD 07/24/25 0943Normal [facility] GroupAncillary Orderson 02-22-7306Mjumidhzb Orders [id number] Parish Contreras 1955 M Date Provider Department Center 07/09/2025 GeraldJuniorARLEN [facility] [place] [facility] Family History Problem Relation Age of Onset Heart attack Father Other Sister Heart attack Brother Other Brother Family Status - Relation Status Age at Mother Father Sister BrotherNoSuburban Community Hospital & Brent[facility] HospitalOrders Onlyon 82-83-4352Bojufr [id number] BenGroversheela Jones 1955 M Date Provider Department Center 07/05/2025 JOHANNA [facility] [place] [facility] Family History Problem Relation Age of Onset Heart attack Father Other Sister Heart attack Brother Other Brother Family Status - Relation Status Age at Mother Father Sister BrotherOhioHealth Doctors HospitalAmbulatory Visit Summaryon 22-95-2624Yeupsyzpiw Visit SummaryAmbulatory Visit Summary PARISH CONTRERAS :1955 Visit Date:07/01/2025 Ambulatory Visit Instructions Your Care Team Attending Physician - ROSITA LANDEROS, Jose He Primary Care Physician - Jonas Sheets MD Referring Physician - Jonas Sheets MD This [...] signed up for this yet, please contact [employer] at [phone] to get signed up today. Language Information Language assistance services are available as needed. [facility]36on 05/13/25 HIV Quantitative RNA Date Value 05/13/2025 <30 copies/mL 05/10/2022 DETECTED BUT <30 COPIES/ML CD4 Abs (cells/mm3) Date Value 05/13/2025 539 Creatinine (mg/dL) Date Value 05/13/2025 1.80 (H) Income on file: YesNormalUniversTrumbull Regional Medical CenterRefillon 06-30-2025 [id number] Parish Contreras 1955 M Date Provider Department Center 06/30/2025 [facility] Len Heal Family History Problem Relation Age of Onset Heart attack Father Other Sister Heart attack Brother Other Brother Family Status - Relation Status Age at Mother Father Sister Brother Reason for Visit and Comments: Med Refill [[id number]][facility] HospitalOrders Onlyon 27-29-2513Efnnzo [id number] Parish Contreras 1955 M Date Provider Department Center 06/10/2025 325-[facility] [place] HeartVAS Family History Problem Relation Age of Onset Heart attack Father Other Sister Heart attack Brother Other Brother Family Status - Relation Status Age at Mother Father Sister BrotherNormalUniversOhioHealth [facility] WITH AUTO DIFFERENTIALon 25-41-0995Tkrahlkqb (Bld) [#/Vol]0.01 10*3/uLNormal0.00-0.20UnGrant HospitalComment on above:Performed By: #### [id number] #### [facility] ([facility]) [address] [place] [address]Kspqsfkrm/100 WBC (Bld)0.2 %Normal0.0-1.0UnGrant HospitalComment on above:Performed By: #### [id number] #### [facility] ([facility]) [address] [place] [address]Ldgbusbynqq (Bld) [#/Vol]0.10 10*3/uLNormal0.00-0.50UnGrant HospitalComment on above:Performed By: #### [id number] #### [facility] ([facility]) [address] [place] [address]Qxwmpdnqxux/100 WBC (Bld)2.0 %Normal0.0-6.0UnGrant HospitalComment on above:Performed By: #### [id number] #### [facility] ([facility]) [address] [place], [place] [address]Nlrvbgvqwzg distribution width (RBC) [Ratio]13.5 %Normal 11.5-15.0UnGrant HospitalComment on above:Performed By: #### [id number] #### [facility] ([facility]) [address] [place], [place] [address]YWAXYUKSNJW MEAN CORPUSCULAR HEMOGLOBIN CONCENTRATION (G/DL) BY XRPBPXPXN79.6 g/jCZrhoaj67.0-35.0UnGrant HospitalComment on above:Performed By: #### [id number] #### [facility] ([facility]) [address] [place], [place] [address]Hyxefnfhxm (Bld) [Volume fraction]47.6 %Gqlxpa58.0-50.0 [facility] Edwin ShawComment on above:Performed By: #### [id number] #### [facility] ([facility]) [address] [place], [place] [address]Dfprflvnhg (Bld) [Mass/Vol]16.0 g/mDNmgjfx31.0-17.0UnGrant HospitalComment on above:Performed By: #### [id number] #### [facility] ([facility]) [address] [place] [address]Amaoluid granulocytes (Bld) [#/Vol]0.01 10*3/uLNormal0.00-0.20 [facility], Edwin ShawComment on above:Performed By: #### [id number] #### [facility] ([facility]) [address] [place] [address]Vmwwxney granulocytes/100 WBC (Bld)0.2 %Normal0.0-1.0UnGrant HospitalComment on above:Performed By: #### [id number] #### [facility] ([facility]) [address] [place] [address]EYHVYECA PLATELET FRACTION %2.2 %Normal0.8-6.3UnGrant HospitalComment on above:Performed By: #### [id number] #### [facility] ([facility]) [address] [place] [address]Clqusfbmzsq (Bld) [#/Vol]1.64 10*3/uLNormal1.20-4.00UnGrant HospitalComment on above:Performed By: #### [id number] #### [facility] ([facility]) [address] [place] [address]Jemlyacgzuf/100 WBC (Bld)33.4 %Tunhpw03.0-45.0UnGrant HospitalComment on above:Performed By: #### [id number] #### [facility] ([facility]) [address] [place] [address]VGQ (RBC) [Entitic mass]30.4 dwTndxzf37.0-33.0UnGrant HospitalComment on above:Performed By: #### [id number] #### [facility] ([facility]) [address] [place], [place] [address]AHQ (RBC) [Entitic vol]90.3 cDJqiryy64.0-98.0UnGrant HospitalComment on above:Performed By: #### [id number] #### [facility] ([facility]) [address] [place] [address]Wyezjcvrj (Bld) [#/Vol]0.41 10*3/uLNormal0.10-1.00UnGrant HospitalComment on above:Performed By: #### [id number] #### [facility] ([facility]) [address] [place] [address]Zjqflwiid/100 WBC (Bld)8.4 %Normal5.0-12.0UnGrant HospitalComment on above:Performed By: #### [id number] #### [facility] ([facility]) [address] [place], [place] [address]Rezhyobhhql (Bld) [#/Vol]2.74 10*3/uLNormal1.60-7.60UnGrant HospitalComment on above:Performed By: #### [id number] #### [facility] ([facility]) [address] [place], [place] [address]Dwkrczklsbd/100 WBC (Bld)55.8 %Kghisz95.0-72.0UnGrant HospitalComment on above:Performed By: #### [id number] #### [facility] ([facility]) [address] [facility] [place] [address]VNEU (PER 100 WBCS) BY AUTOMATED COUNT0.0 %Ivzjtu0MihjkceznyGrant HospitalComment on above:Performed By: #### [id number] #### [facility] ([facility]) [address] [facility] [place], [place] [address]LNTEXNOXF (10*3/UL) IN BLOOD AUTOMATED [id number] 10*3/uLLow 150-400UnGrant HospitalComment on above:Performed By: #### [id number] #### [facility] ([facility]) [address] [facility] [place] [address]WWF (Bld) [#/Vol]5.27 10*6/uLNormal3.80-5.70[facility] ShawComment on above:Performed By: #### [id number] #### [facility] ([facility]) [address] [facility] [place], [place] [address]BHR (Bld) [#/Vol]4.91 10*3/uLNormal4.00-10.60UnGrant HospitalComment on above:Performed By: #### [id number] #### [facility] ([facility]) [address] [place], [place] [address]CAOLZVZGQ TRACHOMATIS AND NEISSERIA GONORRHEA, TMAon 05-13-2025 CHLAMYDIA TRACHOMATIS DNA PROBE (PRESENCE) IN UNSP SPECNegativeNormalNegative [facility] ShawComment on above:Result Comment: No Chlamydia trachomatis rRNA Detected. The Aptima Combo 2 Assay is a FDA approved target amplification nucleic acid probe test that utilizes target capture for the in vitro qualitative detection and differentiation of ribosomal RNA (rRNA)from Chlamydia trachomatis (CT) and/or Neisseria gonorrhoeae (GC) to aid the diagnosis of chlamydial and/or gonococcal urogenital disease using the Amberson System. The Aptima Combo 2 Assay involves target capture, target amplification by Manager Government-Mediated Amplification (TMA), and the detection of the amplification products (amplicon) by the Hybridization Protection Assay (HPA). The internal process controls of the Amberson System monitor the target capture, amplification, and detection steps of the assay, this is not intended to control for sampling adequacy.Performed By: #### [id number] ####[facility] ([facility])[address] [place], [place] [address]WIOYQLKEX GONORRHOEAE DNA PROBE (PRESENCE) IN UNSP SPECNegativeNormalNegativeUnGrant Hospital Comment on above:Result Comment: No Neisseria gonorrhoeae rRNA Detected. The Aptima Combo 2 Assay is a FDA approved target amplification nucleic acid probe test that utilizes target capture for the in vitro qualitative detection and differentiation of ribosomal RNA (rRNA)from Chlamydia trachomatis (CT) and/or Neisseria gonorrhoeae (GC) to aid the diagnosis of chlamydial and/or gonococcal urogenital disease using the Amberson System. The Aptima Combo 2 Assay involves target capture, target amplification by Manager Government-Mediated Amplification (TMA), and the detection of the amplification products (amplicon) by the Hybridization Protection Assay (HPA). The internal process controls of the Amberson System monitor the target capture, amplification, and detection steps of the assay, this is not intended to control for sampling adequacy.Performed By: #### [id number] ####[facility] ([facility])[address] [place], [place] [address]WHIVVTWBWYMSN METABOLIC PANELon 00-25-6028Wfpmhdi [Mass/Vol]4.6 g/dLNormal3.5-5.7UnGrant HospitalComment on above:Performed By: #### [id number] ####[facility] ([facility])[address] [place], [place] [address]ZOH [Catalytic activity/Vol]63 U/L Zvwdjh00-850EveltoeksgGrant HospitalComment on above:Performed By: #### [id number] ####[facility] ([facility])[address] [place], [place] [address]FOQ [Catalytic activity/Vol]13 U/LNormal7-52UnGrant Hospital Comment on above:Performed By: #### [id number] ####[facility] ([facility])[address] [place], [place] [address]Ycluk gap [Moles/Vol]10 mmol/LNormal7-20UnGrant HospitalComment on above:Performed By: #### [id number] ####[facility] ([facility])[address] [place], [place] [address]MEN [Catalytic activity/Vol]14 U/CRhklgd04-57MwvezbyfgdGrant HospitalComment on above:Performed By: #### [id number] ####[facility] ([facility])[address] [place], [place] [address]Lnixluddz [Mass/Vol]0.6 mg/dLNormal0.3-1.0UnGrant HospitalComment on above:Performed By: #### [id number] ####[facility] ([facility])[address] [place], [place] [address]Ksozykn [Mass/Vol]9.7 mg/dLNormal 8.6-10.3UnGrant HospitalComment on above:Performed By: #### [id number] ####[facility] ([facility])[address] [place], [place] [address]Nhohzmar [Moles/Vol]107 mmol/HTcqmdq68-078WylovegjbaGrant HospitalComment on above:Performed By: #### [id number] ####[facility] ([facility])[address] [place], [place] [address]OI9 [Moles/Vol]26 mmol/RSwekee82-44VpyavbfnlkGrant HospitalComment on above:Performed By: #### [id number] ####[facility] ([facility])[address] [place], [place] [address]Cveeilzvxr [Mass/Vol]1.80 mg/dLHigh 0.60-1.30UnGrant HospitalComment on above:Performed By: #### [id number] ####[facility] ([facility])[address] [place], [place] [address]WZPODNUCUK FILTRATION RATE ML/MIN/1.73 SQ M.OADKHOWIK56.6 mL/min/1.73m*2Low>60.0UnGrant HospitalComment on above:Result Comment: The [facility]???s estimated glomerular filtration rate (eGFR) will no [...] group of individuals. Performed By: #### [id number] ####[facility] ([facility])[address] [place], [place] [address]Ymwsdpw [Mass/Vol]114 mg/rDYivo61-839InsliasheaGrant HospitalComment on above:Performed By: #### [id number] ####[facility] ([facility])[address] [place] [address]Idzmqnvdl [Moles/Vol]4.8 mmol/LNormal 3.5-5.1UnGrant HospitalComment on above:Performed By: #### [id number] ####[facility] ([facility])[address] [place], [place] [address]Llvazph [Mass/Vol]7.6 g/dLNormal6.0-8.3UnGrant HospitalComment on above:Performed By: #### [id number] ####[facility] ([facility])[address] [place] [address]Znltoy [Moles/Vol]138 mmol/SHmsxcm682-347LcqyybozpdGrant HospitalComment on above:Performed By: #### [id number] ####[facility] ([facility])[address] [place], [place] [address]Rpyb nitrogen [Mass/Vol]30 mg/dLHigh 7-25UnGrant HospitalComment on above:Performed By: #### [id number] ####[facility] ([facility])[address] [place] [address]JNBD NITROGEN/CREATININE (MASS RATIO) IN SER/PLAS16.7NormalUniversTrumbull Regional Medical CenterComment on above:Performed By: #### [id number] ####[facility] ([facility])[address] [place], [place] [address]YHXEHHWIZX A1Con 59-40-2232Oaisowc [Mass/Vol]163 mg/dLNormalUniWayne HealthCare Main CampusComment on above: Performed By: #### [id number] #### [facility] ([facility]) [address] [place] [address]FiO6r (Bld) [Mass fraction]7.3 %High4.0-6.0UnGrant HospitalComment on above:Performed By: #### [id number] #### [facility] ([facility]) [address] [place], [place] [address]Elrtio Visiton 95-09-9852Rvpgqj-up [id number] Parish Contreras 1955 M Date Provider Department [place] 05/13/2025 [facility] Len Heal Family History Problem Relation Age of Onset Heart attack Father Other Sister Heart attack Brother Other Brother Family Status - Relation Status Age at Mother Father Sister Brother Level of Service:98285 NC OFFICE/OUTPATIENT ESTABLISHED MOD MDM 30 MIN Reason for Visit and Comments: Health Maintenance [619] - Med Management [[id number]]NormalUnGrant HospitalT CELL SUBSET ANALYSISon 71-04-0854SQ051.50 %Vzjtkv73.00-90.00UnGrant HospitalComment on above:Performed By: #### [id number] #### [facility] ([facility]) [address] [facility] [place], [place] [address]LE4 [id number] cells/th7Mlyxtf519-1477FyoadtkwvvGrant HospitalComment on above:Performed By: #### [id number] #### [facility] ([facility]) [address] [place], [place] [address]FQ720.85 %Low40.00-70.00UnGrant Hospital Comment on above:Performed By: #### [id number] #### [facility] ([facility]) [address] [facility] [place], [place] [address]OT8 TVYANIZY185 cells/ez0Lhbeih479-4884VqkshngovqGrant HospitalComment on above:Performed By: #### [id number] #### [facility] ([facility]) [address] [place], [place] [address]VY6:CD80.98Low1.00-4.00UnGrant Hospital Comment on above:Performed By: #### [id number] #### [facility] ([facility]) [address] [facility] [place] [address]WB489.39 %Zbcpnp98.00-40.00[facility] Comment on above:Performed By: #### [id number] #### [facility] ([facility]) [address] [place], [place] [address]LH8 [id number] cells/sj7Dqkaus731-273FqywyxsbanSelect Medical Cleveland Clinic Rehabilitation Hospital, Edwin ShawComment on above:Performed By: #### [id number] #### [facility] ([facility]) [address] [place] [place], [place] [address]Ggfvur Onlyon 59-05-8881Hjaqtr [id number] Parish Contreras 1955 M Date Provider Department Center 05/08/2025 325-[facility] [place] HeartVAS Family History Problem Relation Age of Onset Heart attack Father Other Sister Heart attack Brother Other Brother Family Status - Relation Status Age at Mother Father Sister BrotherNoalUCity HospitalOrders Onlyon 87-96-9412Noqcsx [id number] Parish Contreras 1955 M Date Provider Department Center 05/05/2025 172-MILLA BRUNO [facility] Len Heal Family History Problem Relation Age of Onset Heart attack Father Other Sister Heart attack Brother Other Brother Family Status - Relation Status Age at Mother Father Sister BrotherNoSuburban Community Hospital & Brentwood HospitalRefillon 89-77-4077Xxiifq [id number] Parish Contreras 1955 M Date Provider Department Center 05/05/2025 281-CEASAR [facility] Len Heal Family History Problem Relation Age of Onset Heart attack Father Other Sister Heart attack Brother Other Brother Family Status - Relation Status Age at Mother Father Sister Brother Reason for Visit and Comments: Med Refill [[id number]][facility]36 MD Kassandra Vargas MA Very good lipids and AST ALT, continue current management and recheck in 6 months Phone call to patient advised patient of lab results per Dr. Guillen. Patient verbalized understanding.[id number] lab results from 04/11/2025: MD Kassandra Vargas MA Very good lipids and AST ALT, continue current management and recheck in 6 monthsNormalUniWayne HealthCare Main CampusOffice Visiton 51-13-9849Bedodo- up [id number] Parish Contreras 1955 M Date Provider Department Center 04/17/2025 166-WILI KAUR Family History Problem Relation Age of Onset Heart attack Father Other Sister Heart attack Brother Other Brother Family Status - Relation Status Age at Mother Father Sister Brother Level of Service:34567 NC OFFICE/OUTPATIENT ESTABLISHED MOD MDM 30 MIN Reason for Visit and Comments: Atrial Flutter [101] Coronary Artery Disease [187] Congestive Heart Failure [127] Hypertension [[id number]][facility]36on 05/13/25 11/05/24 HIV Quantitative RNA Date Value 11/05/2024 Comment: Not Detected 05/10/2022 DETECTED BUT <30 COPIES/ML CD4 Abs (cells/mm3) Date Value 11/05/2024 533 Creatinine (mg/dL) Date Value 11/05/2024 1.88 (H) Income on file: NoNormalUnGrant HospitalRefillon 04-01-2025 [id number] Parish Contreras 1955 M Date Provider Department Center 04/01/2025 281[facility] Family History Problem Relation Age of Onset Heart attack Father Other Sister Heart attack Brother Other Brother Family Status - Relation Status Age at Father Sister Brother Reason for Visit and Comments: Med Refill [[id number]][facility] [id number] Parish Contreras 1955 M Date Provider Department Center 04/01/2025 281-[facility]ASAR [facility]UC[facility] Len [facility] Family History Problem Relation Age of Onset Heart attack Father Other Sister Heart attack Brother Other Brother Family Status - Relation Status Age at Father Sister Brother Reason for Visit and Comments: Med Refill [[id number]][facility] HospitalPatient Outreachon 38-56-2621Vlxswwz [id number] Parish Contreras 1955 M Date Provider Department Center 03/18/202571037-RWBXEED, [facility] Len Heal Family History Problem Relation Age of Onset Heart attack Father Other Sister Heart attack Brother Other Brother Family Status - Relation Status Age at Father Sister Brother Reason for Visit and Comments: eligibility 2024 [Other][facility] HospitalRefillon [id number] Parish Contreras Robert 1955 M Date Provider Department Center 02/10/2025 281-SNEHA LUCEROIU A [facility] Len Heal Family History Problem Relation Age of Onset Heart attack Father Other Sister Heart attack Brother Other Brother Family Status - Relation Status Age at Father Sister Brother Reason for Visit and Comments: Med Refill [[id number]][facility] HospitalRefillo 01-13-2025 [id number] Grover Contrerassheela Jones 1955 M Date Provider Department Center 01/13/2025 281-SNEHA LUCEROIU [facility] INF Len Heal Family History Problem Relation Age of Onset Heart attack Father Other Sister Heart attack Brother Other Brother Family Status - Relation Status Age at Father Sister Brother Reason for Visit and Comments: Med Refill [[id number]][facility] HospitalRefillo 11-18-2024 [id number] BenGroversheela Jones 1955 M Date Provider Department Center 11/18/2024 281-NIC CEASAR [facility] INF Len Heal Family History Problem Relation Age of Onset Heart attack Father Other Sister Heart attack Brother Other Brother Family Status - Relation Status Age at Father Sister Brother Reason for Visit and Comments: Med Refill [[id number]][facility]36on Regarding lab results from 11/05/2024: MD Kassandra [...] faxed to Dr. Sheets's office. Patient verbalized understanding.NormalUnGrant HospitalCBC WITH AUTO DIFFERENTIALon 05-06-4047Wljknufpq (Bld) [#/Vol]0.02 10*3/uLNormal0.00-0.20 [facility] ShawComment on above:Performed By: #### [id number] #### [facility] ([facility]) [address], [place] [address]Nkdbxnpqe/100 WBC (Bld)0.4 %Normal0.0-1.0UnGrant HospitalComment on above:Performed By: #### [id number] #### [facility] ([facility]) [address] [place], [place] [address]Tsnavrixgpd (Bld) [#/Vol]0.19 10*3/uLNormal0.00-0.50UnGrant HospitalComment on above:Performed By: #### [id number] #### [facility] ([facility]) [address] [facility] [place], [place] [address]Ecwirodwqbk/100 WBC (Bld)3.5 %Normal0.0-6.0UnGrant HospitalComment on above:Performed By: #### [id number] #### [facility] ([facility]) [address], [place] [address]Szwolxccoza distribution width (RBC) [Ratio]12.8 %Normal 11.5-15.0UnGrant HospitalComment on above:Performed By: #### [id number] #### [facility] ([facility]) [address] [place], [place] [address]WUFMETFJFLF MEAN CORPUSCULAR HEMOGLOBIN CONCENTRATION (G/DL) BY ZCXDNQPQV56.1 g/aCYoyirq55.0-35.0UnGrant HospitalComment on above:Performed By: #### [id number] #### [facility] ([facility]) [address] [place], [place] [address]Uuzintwljs (Bld) [Volume fraction]49.2 %Ourjep58.0-55.0 [facility] ShawComment on above:Performed By: #### [id number] #### [facility] ([facility]) [address] [place], [place] [address]Iskopvysij (Bld) [Mass/Vol]16.3 g/kVIjjjla40.0-17.0UnGrant HospitalComment on above:Performed By: #### [id number] #### [facility] ([facility]) [address] [place], [place] [address]Xyksdjdw granulocytes (Bld) [#/Vol]0.01 10*3/uLNormal0.00-0.20 [facility] ShawComment on above:Performed By: #### [id number] #### [facility] ([facility]) [address] [place], [place] [address]Fgfsfkgb granulocytes/100 WBC (Bld)0.2 %Normal0.0-1.0UnGrant HospitalComment on above:Performed By: #### [id number] #### [facility] ([facility]) [address] [place], [place] [address]YHSPYJUT PLATELET FRACTION %1.6 %Normal0.8-6.3UnGrant HospitalComment on above:Performed By: #### [id number] #### [facility] ([facility]) [address] [place], [place] [address]Ejlsxbxxuij (Bld) [#/Vol]1.81 10*3/uLNormal1.20-4.00UnGrant HospitalComment on above:Performed By: #### [id number] #### [facility] ([facility]) [address] [facility] [place] [place] [address]Kpavdxoxzjr/100 WBC (Bld)33.1 %Usvnfr31.0-45.0UnGrant HospitalComment on above:Performed By: #### [id number] #### [facility] ([facility]) [address] [place] [place] [address]CTR (RBC) [Entitic mass]30.9 twSfjujk91.0-33.0UnGrant HospitalComment on above:Performed By: #### [id number] #### [facility] ([facility]) [address] [place] [address]CFB (RBC) [Entitic vol]93.4 vJKrluvu71.0-98.0UnGrant HospitalComment on above:Performed By: #### [id number] #### [facility] ([facility]) [address] [place], [place] [address]Cshbnvmos (Bld) [#/Vol]0.41 10*3/uLNormal0.10-1.00UnGrant HospitalComment on above:Performed By: #### [id number] #### [facility] ([facility]) [address] [place], [place] [address]Gxqzlmjre/100 WBC (Bld)7.5 %Normal5.0-12.0UnGrant HospitalComment on above:Performed By: #### [id number] #### [facility] ([facility]) [address] [place], [place] [address]Xvxpotyycin (Bld) [#/Vol]3.03 10*3/uLNormal1.60-7.60UnGrant HospitalComment on above:Performed By: #### [id number] #### [facility] ([facility]) [address] [place], [place] [address]Hnuozccpvae/100 WBC (Bld)55.3 %Oimrxh50.0-72.0UnGrant HospitalComment on above:Performed By: #### [id number] #### [facility] ([facility]) [address] [place] [address]PMUC (PER 100 WBCS) BY AUTOMATED COUNT0.0 %Hcpgco5RofoqybiutGrant HospitalComment on above:Performed By: #### [id number] #### [facility] ([facility]) [address] [place] [address]TRPVVVXZQ (10*3/UL) IN BLOOD AUTOMATED [id number] 10*3/uLLow 150-400UnGrant HospitalComment on above:Performed By: #### [id number] #### [facility] ([facility]) [address] [place], [place] [address]XRN (Bld) [#/Vol]5.27 10*6/uLNormal4.20-5.70UnGrant HospitalComment on above:Performed By: #### [id number] #### [facility] ([facility]) [address] [place], [place] [address]LHW (Bld) [#/Vol]5.47 10*3/uLNormal4.00-10.60UnGrant HospitalComment on above:Performed By: #### [id number] #### [facility] ([facility]) [address] [place], [place] [address]GIQTZHLYF TRACHOMATIS AND NEISSERIA GONORRHEA, TMAon 11-05-2024 CHLAMYDIA TRACHOMATIS DNA PROBE (PRESENCE) IN UNSP SPECNegativeNormalNegative [facility] ShawComment on above:Result Comment: No Chlamydia trachomatis rRNA Detected. The Aptima Combo 2 Assay is a FDA approved target amplification nucleic acid probe test that utilizes target capture for the in vitro qualitative detection and differentiation of ribosomal RNA (rRNA)from Chlamydia trachomatis (CT) and/or Neisseria gonorrhoeae (GC) to aid the diagnosis of chlamydial and/or gonococcal urogenital disease using the Amberson System. The Aptima Combo 2 Assay involves target capture, target amplification by Manager Government-Mediated Amplification (TMA), and the detection of the amplification products (amplicon) by the Hybridization Protection Assay (HPA). The internal process controls of the Amberson System monitor the target capture, amplification, and detection steps of the assay, this is not intended to control for sampling adequacy.Performed By: #### [id number] #### [facility] ([facility]) [address] [place] [address]NLUCCXXVE GONORRHOEAE DNA PROBE (PRESENCE) IN UNSP SPECNegative NormalNegativeUnGrant HospitalComment on above:Result Comment: No Neisseria gonorrhoeae rRNA Detected. The Aptima Combo 2 Assay is a FDA approved target amplification nucleic acid probe test that utilizes target capture for the in vitro qualitative detection and differentiation of ribosomal RNA (rRNA)from Chlamydia trachomatis (CT) and/or Neisseria gonorrhoeae (GC) to aid the diagnosis of chlamydial and/or gonococcal urogenital disease using the Amberson System. The Aptima Combo 2 Assay involves target capture, target amplification by Manager Government-Mediated Amplification (TMA), and the detection of the amplification products (amplicon) by the Hybridization Protection Assay (HPA). The internal process controls of the Amberson System monitor the target capture, amplification, and detection steps of the assay, this is not intended to control for sampling adequacy.Performed By: #### [id number] #### [facility] ([facility]) [address] [place] [address]GWAKOXYVRJJSQ METABOLIC PANELon 99-31-3081Gnynykg [Mass/Vol]4.6 g/dLNormal3.5-5.7UnGrant HospitalComment on above:Performed By: #### [id number] #### [facility] ([facility]) [address] [place] [address]JSQ [Catalytic activity/Vol]66 U/BQpojcj25-261UuxzxndrtaGrant HospitalComment on above:Performed By: #### [id number] #### [facility] ([facility]) [address] [place], [place] [address]ESI [Catalytic activity/Vol]14 U/LNormal7-52UnGrant HospitalComment on above:Performed By: #### [id number] #### [facility] ([facility]) [address] [place] [address]Nqzqy gap [Moles/Vol]12 mmol/LNormal7-20UnGrant HospitalComment on above:Performed By: #### [id number] #### [facility] ([facility]) [address] [place] [address]IEJ [Catalytic activity/Vol]15 U/ENatlkm12-59PraepruuoiGrant HospitalComment on above:Performed By: #### [id number] #### [facility] ([facility]) [address] [place] [address]Zspwmvadw [Mass/Vol]0.6 mg/dLNormal0.3-1.0UnGrant HospitalComment on above:Performed By: #### [id number] #### [facility] ([facility]) [address] [place], [place] [address]Rzpcqzr [Mass/Vol]9.7 mg/dLNormal8.6-10.3UnGrant HospitalComment on above:Performed By: #### [id number] #### [facility] ([facility]) [address] [place], [place] [address]Llvvwrqj [Moles/Vol]105 mmol/EKhqcwx70-543SegtszpzabGrant HospitalComment on above:Performed By: #### [id number] #### [facility] ([facility]) [address] [place] [address]ON2 [Moles/Vol]27 mmol/RYsgete98-94OtmykaogunGrant HospitalComment on above:Performed By: #### [id number] #### [facility] ([facility]) [address] [place], [place] [address]Gbkdzdjldi [Mass/Vol]1.88 mg/dLHigh0.70-1.30UnGrant HospitalComment on above:Performed By: #### [id number] #### [facility] ([facility]) [address] [place], [place] [address]FKEUEXJQLP FILTRATION RATE ML/MIN/1.73 SQ M.WLRQUNKKH10.7 mL/min/1.73m*2Low>60.0UnGrant HospitalComment on above:Result Comment: The [facility]???s estimated glomerular filtration rate (eGFR) will no [...] group of individuals.Performed By: #### [id number] #### [facility] ([facility]) [address] [place], [place] [address]Ekpvcgq [Mass/Vol]112 mg/yZDlyr80-397AuuwujvxrcGrant HospitalComment on above:Performed By: #### [id number] #### [facility] ([facility]) [address] [place], [place] [address]Rlefrwkgu [Moles/Vol]4.5 mmol/LNormal3.5-5.1UnGrant HospitalComment on above:Performed By: #### [id number] #### [facility] ([facility]) [address] [place], [place] [address]Etunrci [Mass/Vol]7.2 g/dLNormal6.0-8.3UnGrant HospitalComment on above:Performed By: #### [id number] #### [facility] ([facility]) [address] [place], [place] [address]Aeyess [Moles/Vol]139 mmol/HHubdzh057-877LglyjfoxtmGrant HospitalComment on above:Performed By: #### [id number] #### [facility] ([facility]) [address] [place], [place] [address]Afam nitrogen [Mass/Vol]27 mg/dLHigh7-25UnGrant HospitalComment on above:Performed By: #### [id number] #### [facility] ([facility]) [address] [place], [place] [address]MYQI NITROGEN/CREATININE (MASS RATIO) IN SER/PLAS14.4Normal [facility] ShawComment on above:Performed By: #### [id number] #### [facility] ([facility]) [address] [place] [address]LTARTRONSM A1Con 82-78-1997Wgfoffg [Mass/Vol]157 mg/dLNormal [facility] ShawComment on above:Performed By: #### [id number] #### [facility] ([facility]) [address] [place] [address]TwO8n (Bld) [Mass fraction]7.1 %High4.0-6.0UnGrant HospitalComment on above:Performed By: #### [id number] #### [facility] ([facility]) [address] [place] [address]PDBMT PANELon 49-78-7655EBBX/HDL3.9 mg/dLNormalUniversTrumbull Regional Medical CenterComment on above:Performed By: #### [id number] ####[facility] ([facility])[address] [place] [address]Pgjklpermjb [Mass/Vol]140 mg/dL Twlzjw330-887UudszvhqnyGrant HospitalComment on above:Performed By: #### [id number] ####[facility] ([facility])[address] [place] [address] Magnesium [Mass/Vol]211 mg/hGOehw09-925XkckglibgvGrant Hospital Comment on above:Result Comment: TRIGLYCERIDE REFERENCE RANGE: 20 YEARS AND OLDER CARDIOVASCULAR RISK LESS THAN 150 mg/dL LOW RISK 150 TO 199 mg/dL BORDERLINE RISK 200 mg/dL AND GREATER HIGH RISKPerformed By: #### [id number] ####[facility] ([facility])[address] [place] [address]Akzmrybji [Mass/Vol]62 mg/dLNormal 0-160UnGrant HospitalComment on above:Performed By: #### [id number] ####[facility] ([facility])[address] [place], [place] [address]Togaedeqw [Mass/Vol]36 mg/hBXnnnts60-10PxcrwkzrjsGrant HospitalComment on above:Performed By: #### [id number] ####[facility] (BE[facility]ER)[address] [place], [place] [address]HPU HDL CHOL. (LDL+VLDL)104NormalUniWayne HealthCare Main CampusComment on above:Performed By: #### [id number] ####[facility] ([facility])[address] [facility] [address]JITGC VLDL-C42 mg/dLHigh0-40UnGrant HospitalComment on above:Performed By: #### [id number] ####[facility] ([facility])[address] [facility]ERTRU[facility]ALLEGHENY [facility]AL H[place], [place] [address]Afbty 66-56-4152Zpy [id number] Parish Contreras 1955 M Date Provider Department Center 11/05/2024 2245-[facility] Family History Problem Relation Age of Onset Heart attack Father Other Sister Heart attack Brother Other Brother Family Status - Relation Status Age at Father Sister BrotherNormalUniWayne HealthCare Main CampusOffice Visiton 81-94-4553Mtbsah- up [id number] Parish Contreras 1955 M Date Provider Department Center 11/05/2024 281-CEASAR [facility] Family History Problem Relation Age of Onset Heart attack Father Other Sister Heart attack Brother Other Brother Family Status - Relation Status Age at Father Sister Brother Level of Service:87406 [place] OFFICE/OUTPATIENT ESTABLISHED MOD MDM 30 MIN (GC) Reason for Visit and Comments: HIV infection, unspecified symptom status (CMS/HCC) [Other] Health Maintenance [619] Med Management [[id number]]NormalUnGrant HospitalRPRon 39-21-3313IBMXMP AB PRESENCE IN SERUM BY RPRNon-ReactiveNormalNonreactive [facility] ShawComment on above:Performed By: #### [id number] #### [facility] ([facility]) [address] [place], [place] [address]S CELL SUBSET ANALYSISon 17-22-1463ZO329.46 %Olwzhj99.00-90.00 [facility] ShawComment on above:Performed By: #### [id number] #### [facility] ([facility]) [address] [place] [address]AS3 [id number] cells/un3Ulgdcm730-2362TnejjdsxsrGrant HospitalComment on above:Performed By: #### [id number] #### [facility] ([facility]) [address] [place] [address]WS028.42 %Low40.00-70.00UnGrant Hospital Comment on above:Performed By: #### [id number] #### [facility] ([facility]) [address] [place] [address]HF9 VZVYFVPU749 cells/bp1Rokymk282-2179RleezzkwxaGrant HospitalComment on above:Performed By: #### [id number] #### [facility] ([facility]) [address] [place] [address]GT7:CD80.80Low1.00-4.00UnGrant Hospital Comment on above:Performed By: #### [id number] #### [facility] ([facility]) [address] [place] [address]JS977.93 %Rgudee49.00-40.00UnGrant Hospital Comment on above:Performed By: #### [id number] #### [facility] ([facility]) [address] [place] [address]KF0 UGZHNWQP434 cells/xn9Mbrqfa250-541KlvyvhwrfdGrant HospitalComment on above:Performed By: #### [id number] #### [facility] ([facility]) [address] [place] [address]Qylbvb Visiton 07-58-4364Ehdxrh-up [id number] Parish Contreras 1955 M Date Provider Department Center 10/29/2024 485[address]-RNUTZQTWIN CASTAÑEDA [facility] Chris [facility] Family History Problem Relation Age of Onset Heart attack Father Other Sister Heart attack Brother Other Brother Family Status - Relation Status Age at Father Sister Brother Level of Service:25995 [place] OFFICE/OUTPATIENT ESTABLISHED MOD MDM 30 MIN Reason [...] palpitations/irregular beats sometimes at rest after some exertion.[facility] HospitalRefillon [id number] Parish Contreras 1955 M Date Provider Department Center 10/21/2024 CEASAR HAND [facility] Family History Problem Relation Age of Onset Heart attack Father Other Sister Heart attack Brother Other Brother Family Status - Relation Status Age at Father Sister Brother Reason for Visit and Comments: Med Refill [[id number]][facility]36on Called Dr. Sheets office and spoke with a nurse. Informed her that patient's daughter called us and reported that Dr. Sheets wanted to increase Lyrica to 100 mg BID. Patient wants to get script at [facility] and Dr. Lucero would need to write the prescription. Requested that they fax us Dr. Sheets's note indicating the increase in Lyrica. Since Lyrica is controlled, wanted to make sure they want us to prescribe so that patient not getting prescriptions from 2 physicians. She will fax the note after speaking with Dr. KimormalSelect Medical [facility] [phone] saw Dr. Sheets on 09/11/2024 and Lyrica was increased to 100mg BID. Patient would like for you to send the Lyrica 100 mg BID to the [facility]. [facility] HospitalOrders Onlyon 74-21-9984Ayqnev Only [id number] Parish Contreras 1955 M Date Provider Department Center 10/17/2024 CEASAR HAND [facility] Family History Problem Relation Age of Onset Heart attack Father Other Sister Heart attack Brother Other Brother Family Status - Relation Status Age at Father Sister BrotherNormalUniMary Rut[facility] Hospital 16-19-6615Gqtkim [id number] Parish Contreras 1955 M Date Provider Department Center 09/23/2024 CEASAR HAND [facility] Family History Problem Relation Age of Onset Heart attack Father Other Sister Heart attack Brother Other Brother Family Status - Relation Status Age at Father Sister Brother Reason for Visit and Comments: Med Refill [[id number]][facility] 08-26-2024 [id number] Parish Contreras 1955 M Date Provider Department Center 08/26/2024 CEASAR HAND C INF [facility] Family History Problem Relation Age of Onset Heart attack Father Other Sister Heart attack Brother Other Brother Family Status - Relation Status Age at Father Sister Brother Reason for Visit and Comments: Med Refill [[id number]][facility] HospitalCA 19-9on 09-15-2022 CA 19-918 U/mLNormal0-35[facility] HospitalComment on above:Result Comment: [employer] Electrochemiluminescence Immunoassay (ECLIA) . Values obtained with different assay methods or kits cannot be used interchangeably. Results cannot be interpreted as absolute evidence of the presence or absence of malignant disease.Performed By: #### CA 19,9 ####[facility] [address] [place], [place] [address] Dr. Jose Adamson 18-67-3711VJN1.8 ng/mLNormal0.0-4.7The [facility] Comment on above:Result Comment: Nonsmokers <3.9 Smokers <5.6 . [employer] Electrochemiluminescence Immunoassay (ECLIA) . Values obtained with different assay methods or kits cannot be used interchangeably. Results cannot be interpreted as absolute evidence of the presence or absence of malignant disease.Performed By: #### HPYLLC #### [facility] [address] [place], [place] [address] Dr. Jose Duggan PYLORI ANTIBODY IGGon 09-15-2022H. PYLORI IGG ABS0.23 Index ValueNormal0.00-0.79The [facility] Hospitalment on above:Result Comment: Negative <0.80 Equivocal 0.80 - 0.89 Positive >0.89Performed By: #### HPYLLC #### [facility] [address] [place] [address] Dr. Jose GonsalesAMMONIAon 13-40-8302Jvvlafa (P) [Moles/Vol]13 umol/OUioybs13-[address] Anne HospitalComment on above:Performed By: #### PTTHEP #### [facility] [address] [place] [address] Dr. Jose GonsalesAMYLASEon 48-66-8420Xlryeew [Catalytic activity/Vol]47 U/LNormal 25-115The [facility] Anne HospitalComment on above:Performed By: #### PTTHEP #### [facility] [address] [place] [address] Dr. Jose GonsalesCBYesy AUTO DIFFon 18-61-3923SWHO #0.0 103/ulNormal0.0-0.1The [facility] Anne HospitalComment on above:Performed By: #### CBC ####[facility] Lips[address] [place], [place] [address]Dr.Yilan ChangBasophils/100 WBC (Bld)0.2 %Normal0.2-2.0The [facility] Anne HospitalComment on above:Performed By: #### CBC ####[facility] Mlwemqpffl[address] [place], [place] [address]Dr.Yilan ChangEO #0.2 103/ulNormal0.0-0.7The [facility] on above:Performed By: #### CBC ####[facility] Nvluhgwegi[address] [place], [place] [address]Dr.Yilan ChangEosinophils/100 WBC (Bld)3.4 %Normal 0.9-7.0The [facility] Hospitalment on above:Performed By: #### CBC ####[facility] [address]zcf[address] [place], [place] [address]Dr.Jose Gonsales Erythrocyte distribution width (RBC) [Ratio]13.7 %Kybowt37.0-15.0The [facility] Anne HospitalComment on above:Performed By: #### CBC ####[facility] Z[address] [place], [place] [address]Dr.Jose GonsalesHematocrit (Bld) [Volume fraction]44.0 %Nvbrug88.0-54.0The [facility] Anne HospitalComment on above:Performed By: #### CBC ####[facility] Cltmfsxbkr[address] [place], [place] [address]Dr.Jose GonsalesHemoglobin (Bld) [Mass/Vol]14.4 g/dL Alvina94.0-18.0The [facility] Anne HospitalComment on above:Performed By: #### CBC ####[facility] Vktccsmtwa[address] [place], [place] [address]Dr. Yilan ChangIG #0.01 10e3/ulNormal0.00-0.03The [facility] Anne HospitalComment on above: Performed By: #### CBC ####[facility] Fwegsrotlw[address] [place], [place] [address]Dr.Jose ChangIG %0.2 %Normal0.0-0.5The [facility] HospitalComment on above:Performed By: #### CBC ####[facility] Z[address]hbzm[address] [place], [place] [address]Dr.Jose ChangLYMPH #1.4 103/ulNormal1.2-3.8The [facility] Anne HospitalComment on above:Performed By: #### CBC ####[facility] Vcxkyaquqo[address] [place], [place] [address]Dr. Jose DruLymphocytes/100 WBC (Bld)31.6 %Igreez60.5-60.0The [facility] Comment on above:Performed By: #### CBC ####[facility] E[address]rzf[address] [place], [place] [address]Dr.Jose GonsalesMANUAL DIFF REQNONormalThe [facility] St[facility] Anne HospitalComment on above:Performed By: #### CBC ####[facility] [address] [place] [address]Dr.Jose DruH (RBC) [Entitic mass]29.8 nsJfptoa78.9-34.0The [facility] Anne HospitalComment on above: Performed By: #### CBC ####[facility] [address]ybj[address]ecf[address] [place], [place] [address]Dr.Jose DruHC (RBC) [Mass/Vol]32.7 g/dLNormal 29.9-35.2The [facility] HospitalComment on above:Performed By: #### CBC ####[facility] Yvubuywcgz[address] [place], [place] [address]Dr. Jose GonsalesV (RBC) [Entitic vol]91.1 pOIrjplr47.0-94.0The [facility] Comment on above:Performed By: #### CBC ####[facility] Gorwrcheme[address] [place], [place] [address]Dr.Jose GonsalesMONO #0.4 103/ulNormal0.3-0.[address] Anne HospitalComment on above:Performed By: #### CBC ####[facility] Awooswiogo[address] [place], [place] [address]Dr.Jose Gonsales Monocytes/100 WBC (Bld)8.4 %Normal1.7-12.0The [facility] Anne HospitalComment on above: Performed By: #### CBC ####[facility] Eviyxlelda[address] [place], [place] [address]Dr.Jose GonsalesNEUT #2.5 103/ulNormal1.4-6.5The [facility] Anne HospitalComment on above:Performed By: #### CBC ####[facility] Shhwgirmrn[address] [place], [place] [address]Dr.Jose GonsalesNeutrophils/100 WBC (Bld)56.2 %Jrwdon39.0-75.0The [facility] HospitalComment on above:Performed By: #### CBC ####[facility] [address]ozjvnaaog[address] [place], [place] [address]Dr.Jose GonsalesPlatelet mean volume (Bld) [Entitic vol]10.4 fLNormal9.5-13.[address] Anne HospitalComment on above:Performed By: #### CBC ####[facility] [address] [place] [address]Dr.Jose DfcpiKEA405 103/ulCritically zpa576-706Msp [facility] Anne HospitalComment on above:Performed By: #### CBC ####[facility] Lipojlioqj[address] [place], [place] [address]Dr.Jose ChangRBC4.83 106/ulNormal4.70-6.10The [facility] HospitalComment on above:Performed By: #### CBC ####[facility] Nhzpqgynph[address] [place], [place] [address]Dr.Jose ChangWBC4.4 103/ulNormal4.0-11.0The [facility] Anne HospitalComment on above:Performed By: #### CBC ####[facility] Vptjqlyvoh[address] [place], [place] [address]Dr.Jose ChangFREE THYROXINE INDEX T7on 42-73-2274LRS3.48Hslmkc2.30-4.50The [facility] Anne HospitalComment on above:Performed By: #### CMP, T7, LIPA, TSH, YFN ####[facility] Slbmbwqotm[address] [place], [place] [address]Dr. Jose FtypxV7A35.0 % Sevfvd46.0-40.0[facility] Regional HospitalComment on above:Performed By: #### CMP, T7, LIPA, TSH, YFN ####[facility] [address]ft[address] [place], [place] [address]Dr. Jose ChangT4 [Mass/Vol]5.30 ug/dLNormal4.50-12.10The [facility] Anne HospitalComment on above:Performed By: #### CMP, T7, LIPA, TSH, YFN ####[facility] Fxavnpcfxv[address] [place], [place] [address]Dr. Jose ChangIRON on 24-51-8033Mmqc [Mass/Vol]47.0 ug/dLCritically low65.0-175.0The [facility] HospitalComment on above:Performed By: #### PTTHEP #### [facility] [address] [place] [address] [address] Jose GonsalesLIPASEon 00-98-5557Odebbn [Catalytic activity/Vol]182.0 U/LNormal 73.0-393.0The [facility] Anne HospitalComment on above:Performed By: #### PTTHEP #### [facility] Laboratory [address] [address] [address] Jose GonsalesPROF 14(COMP METB)on [id number] [Mass/Vol]3.5 g/dLNormal 3.4-5.0The [facility] HospitalComment on above:Performed By: #### CMP, T7, LIPA, TSH, YFN ####[facility] [address] [address]Dr. Dorindalan ChangAlbumin/Globulin [Mass ratio]0.9 {ratio}NormalThe [facility] Anne HospitalComment on above:Performed By: #### CMP, T7, LIPA, TSH, YFN ####[facility] [address] [address]Dr. Yilan ChangALP [Catalytic activity/Vol]64 U/CJmigxl71-012Hbl [facility] HospitalComment on above: Performed By: #### CMP, T7, LIPA, TSH, YFN ####[facility] [address] [address]Dr. Yilan ChangALT [Catalytic activity/Vol] 16 U/UYhfjhe96-38Ihy [facility] HospitalComment on above:Performed By: #### CMP, T7, LIPA, TSH, YFN ####[facility] [address] [address]Dr. Yilan ChangAnion gap [Moles/Vol]9.6 mmol/LNormalThe [facility] HospitalComment on above:Performed By: #### CMP, T7, LIPA, TSH, YFN ####[facility] [address] [address]Dr. Yilan ChangAST [Catalytic activity/Vol]16 U/POojkkw21-49Jik [facility] Comment on above:Performed By: #### CMP, T7, LIPA, TSH, YFN ####[facility] [address] [address]Dr. Yilan Gonsales Bilirubin [Mass/Vol]0.3 mg/dLNormal0.2-1.0The [facility] HospitalComment on above: Performed By: #### CMP, T7, LIPA, TSH, YFN ####[facility] [address] [address]Dr. Yilan ChangCalcium [Mass/Vol]9.3 mg/dL Normal8.5-10.1The [facility] HospitalComment on above:Performed By: #### CMP, T7, LIPA, TSH, YFN ####[facility] [address] [place], [place] [address]Dr. Yilan ChangChloride [Moles/Vol]104 mmol/ZVhwrcw38-976Xqh [facility] HospitalComment on above:Performed By: #### CMP, T7, LIPA, TSH, YFN ####[facility] [address] [place], [place] [address]Dr. Yilan ChangCO2 [Moles/Vol]28.9 mmol/AFlxrpa08.0-32.0The [facility] HospitalComment on above: Performed By: #### CMP, T7, LIPA, TSH, YFN ####[facility] [address] [address]Dr. Yilan ChangCreatinine [Mass/Vol]1.96 mg/dLCritically high0.70-1.30The [facility] HospitalComselect specialty hospital on above:Performed By: #### CMP, T7, LIPA, TSH, YFN ####[facility] [address] [place], [place] [address]Dr. Yilan ChangEGFR-AF BTPQZUHZ89 mL/min/1.73m2 Critically low>=60The [facility] HospitalComment on above:Performed By: #### CMP, T7, LIPA, TSH, YFN ####[facility] [address] [address]Dr. Yilan ChangEGFR-NON AF SGIXKLQO32 mL/min/1.26s3Jztuluscfb low>=60The [facility] HospitalComment on above:Performed By: #### CMP, T7, LIPA, TSH, YFN ####[facility] [address] [address]Dr. Yilan ChangGlobulin (S) [Mass/Vol]3.7 g/dLNoSouthern [place] [facility] Comment on above:Performed By: #### CMP, T7, LIPA, TSH, YFN ####[facility] [address] [address]Dr. Yilan Gonsales Glucose [Mass/Vol]161 mg/dLCritically xewe39-570Wve [facility] HospitalComment on above:Performed By: #### CMP, T7, LIPA, TSH, YFN ####[facility] [address] [place], [place] [address]Dr. Yilan ChangPotassium [Moles/Vol]4.5 mmol/LNormal3.5-5.1The [facility] HospitalComment on above: Performed By: #### CMP, T7, LIPA, TSH, YFN ####[facility] [address] [place], [place] [address]Dr. Yilan ChangProtein [Mass/Vol]7.2 g/dL Normal6.4-8.2The [facility] HospitalComment on above:Performed By: #### CMP, T7, LIPA, TSH, YFN ####[facility] [address] [address]Dr. Yilan ChangSodium [Moles/Vol]138 mmol/MDeqqln909-127Mol [facility] Hospitalment on above:Performed By: #### CMP, T7, LIPA, TSH, YFN ####[facility] Netgfv[address] [place], [place] [address]Dr. Yilan ChangUrea nitrogen [Mass/Vol]33.0 mg/dLCritically high7.0-18.0The [facility] Comment on above:Performed By: #### CMP, T7, LIPA, TSH, YFN ####[facility] [address] [address]Dr. Yilan ChangUrea nitrogen/Creatinine [Mass ratio]16.8 mg/mgNoSouthern [place] Medical CenterComment on above:Performed By: #### CMP, T7, LIPA, TSH, YFN ####[facility] [address] [place], [place] [address]Fw. Dorindaedward NickHon 06-97-5566SPF0.868 uIU/mLNormal0.358-3.740The [facility] HospitalComment on above: Performed By: #### CMP, T7, LIPA, TSH, YFN ####[facility] [address] [place], [place] [address]FzLuci Jose GonsalesDIGOXINon 13-50-2989IBZ3.6 ng/mLCritically low0.9-2.0The [facility] HospitalComment on above:Performed By: #### DIG #### [facility] Laboratory [address], [place] [address] Dr. Jose GonsalesCardiovascular Lab Reporton [id number] Lab Report [facility] Patient Name: Parish Contreras [facility] MR #: [id number] Physician: Eleno Eric Department of [facility] Medicine Service Date: 04/05/2022 Division of Birthdate: 1955 Cardiology Room #: Adult Cardiovascular Services [address] [address] Cardiovascular Laboratory Report INDICATION: The patient is [...] signed the consent. He was brought to photo lab manager in a fasting state. The right groin area was prepped and draped in usual fashion. Micropuncture technique and ultrasound guidance were used for access in the right common femoral artery. Inner cannula angiography was performed, followed by upsizing to the 5-[place] x 11 cm sheath. Access was obtained using same technique in the right common femoral vein and a 6-[place] x 11 cm sheath was placed. A 6-[place] Miller catheter was used to right heart catheterization with measurement pressures of and calculation of cardiac output using the estimated [place] method Miller catheter was removed. Bilateral selective coronary angiography was then performed using 5-[place] JL4 and JR4 diagnostic catheters. The JR4 diagnostic catheter was used to selectively engage the radial graft to the obtuse marginal branch #1, angiography was performed. The catheter was used to selectively engage the saphenous venous graft to the diagonal branch, angiography was performed. The catheter was exchanged to a 5-[place] AR modified diagnostic catheter, which was used to selectively engage the saphenous venous graft to the PDA, angiography was performed. A 5-[place] FABIANA catheter was used to selectively engage the left subclavian artery and then selectively engage the left internal mammary artery, angiography was performed. Catheter was removed. Procedure was concluded. A 6-[place] Angio-Seal device was used for hemostasis in [...] graft angiography. 1. (more content not included)...NormalThe [facility] CBC AUTO DIFFon [id number] #0.0 103/ulNormal0.0-0.1[facility] Comment on above:Performed By: #### HPYLLC #### [facility] Laboratory [address] [place] [address] Dr. Jose Prabhakarsophils/100 WBC (Bld)0.2 %Normal0.2-2.0[facility] Comment on above:Performed By: #### HPYLLC #### [facility] Laboratory [address] [address] [address] Jose Forman #0.1 103/ulNormal0.0-0.7The [facility] HospitalComment on above: Performed By: #### HPYLLC #### [facility] Laboratory [address] [address] [address] Jose Minaosinophils/100 WBC (Bld)2.2 %Normal0.9-7.0[facility] Comment on above:Performed By: #### HPYLLC #### [facility] Laboratory [address] [place] [address] Dr. Jose Minarythrocyte distribution width (RBC) [Ratio]12.8 %Jnixdg17.0-15.[address] [facility] HospitalComment on above:Performed By: #### HPYLLC #### [facility] Laboratory [address] [place] [address] Dr. Jose GonsalesHematocrit (Bld) [Volume fraction]44.5 %Nvwnok94.0-54.0The [facility] HospitalComment on above:Performed By: #### HPYLLC #### [facility] Laboratory [address] [place] [address] Dr. Jose GonsalesHemoglobin (Bld) [Mass/Vol]14.5 g/eUFxsifh52.0-18.0The [facility] HospitalComment on above:Performed By: #### HPYLLC #### [facility] Laboratory [address] [place] [address] Dr. Jose Rajan #0.01 10e3/ulNormal0.00-0.03The [facility] HospitalComment on above:Performed By: #### HPYLLC #### [facility] Laboratory [address] [place] [address] Dr. Jose Rajan %0.2 %Normal0.0-0.5The [facility] HospitalComment on above: Performed By: #### HPYLLC #### [facility] Laboratory [address] [place] [address] Dr. Jose MorganH #1.8 103/ulNormal1.2-3.8The [facility] HospitalComselect specialty hospital on above:Performed By: #### HPYLLC #### [facility] Laboratory [address] [place] [address] Dr. Jose Floresmphocytes/100 WBC (Bld)31.8 %Zpkmbf91.5-60.0The [facility] HospitalComment on above:Performed By: #### HPYLLC #### [facility] Laboratory [address] [place] [address] Dr. Jose DurbinUAL DIFF REQNONormalThe [facility] HospitalComment on above: Performed By: #### HPYLLC #### [facility] Laboratory [address] [place] [address] Dr. Jose Michelle (RBC) [Entitic mass]30.6 anKlulwf10.9-34.0The [facility] HospitalComment on above:Performed By: #### HPYLLC #### [facility] Laboratory [address] [place] [address] Dr. Jose Michelle (RBC) [Mass/Vol]32.6 g/vPFaisrr37.9-35.2The [facility] HospitalComment on above:Performed By: #### HPYLLC #### [facility] Laboratory [address] [place] [address] Dr. Jose Michelle (RBC) [Entitic vol]93.9 sWUqfdrw40.0-94.0The [facility] HospitalComment on above:Performed By: #### HPYLLC #### [facility] Laboratory [address] [place] [address] Dr. Jose Morales #0.5 103/ulNormal0.3-0.8The [facility] HospitalComment on above:Performed By: #### HPYLLC #### [facility] Laboratory [address] [place] [address] Dr. Jose Clarkeocytes/100 WBC (Bld)8.5 %Normal1.7-12.0The [facility] Comment on above:Performed By: #### HPYLLC #### [facility] Laboratory [address] [place] [address] Dr. Jose Gleason #3.3 103/ulNormal1.4-6.5The [facility] HospitalComment on above:Performed By: #### HPYLLC #### [facility] Laboratory [address] [place] [address] Dr. Jose Wheelerutrophils/100 WBC (Bld)57.1 %Hjievh20.0-75.0The [facility] HospitalComment on above:Performed By: #### HPYLLC #### [facility] Laboratory [address] [place] [address] Dr. Jose Whatleylet mean volume (Bld) [Entitic vol]10.1 fLNormal9.5-13.5The [facility] HospitalComment on above:Performed By: #### HPYLLC #### [facility] Laboratory [address] [place] [address] Dr. Jose GonsalesPLT150 103/kwMkqhaa635-683Grf [facility] HospitalComment on above: Performed By: #### HPYLLC #### [facility] Laboratory [address] [place] [address] Dr. Jose GonsalesRBC4.74 106/ulNormal4.70-6.10The [facility] HospitalComment on above:Performed By: #### HPYLLC #### [facility] Laboratory [address] [place] [address] Dr. Jose GonsalesWBC5.8 103/ulNormal4.0-11.0The [facility] HospitalComment on above: Performed By: #### HPYLLC #### [facility] Laboratory [address] [place] [address] Dr. Jose GonsalesCovid-19 PCR ([facility])on 01-52-7297MOVH-CoV-2 (COVID-19) RNA JORDON+probe Ql (Unsp spec)Not detectedNormalNOT DETECTEDProm[facility] Comment on above:Result Comment: This test is not yet approved or cleared by the [place] FDA. When there are no FDA-approved or cleared tests available, and other criteria are met, FDA can make tests available under an emergency access mechanism called an Emergency Use Authorization (EUA). The EUA for this test is supported by the [place] of Health and Human Service's (HHS's) declaration [...] with SARS-CoV-2.Performed By: #### CVDTBH ####[facility] [address] [address]Dr. Jose GonsalesPROF CHEM 8 (BAS METB)on 24-90-9279Lmjuv gap [Moles/Vol]14.0 mmol/LNormalThe [facility] HospitalComment on above:Performed By: #### PTTHEP #### [facility] Laboratory [address] [place] [address] Dr. Jose GonsalesCalcium [Mass/Vol]9.3 mg/dLNormal8.5-10.1The [facility] Comment on above:Performed By: #### PTTHEP #### [facility] Laboratory [address] [place] [address] Dr. Jose GonsalesChloride [Moles/Vol]106 mmol/JVqxucn29-095Uvs [facility] Comment on above:Performed By: #### PTTHEP #### [facility] Laboratory [address] [place] [address] Dr. Jose GonsalesCO2 [Moles/Vol]22.7 mmol/URiozdi81.0-32.0The [facility] Comment on above:Performed By: #### PTTHEP #### [facility] Laboratory [address] [place] [address] Dr. Jose GonsalesCreatinine [Mass/Vol]2.22 mg/dLCritically high0.70-1.30The [facility] HospitalComment on above:Performed By: #### PTTHEP #### [facility] Laboratory [address] [place] [address] Dr. Jose MinaGFR-AF PAWKHDDA00 mL/min/1.10t4Yxemoqnfae low>=60The [facility] HospitalComment on above:Performed By: #### PTTHEP #### [facility] Laboratory [address] [place] [address] Dr. Jose MinaGFR-NON AF VTRKURVZ17 mL/min/1.42h9Dsajxpczsj low>=60The [facility] HospitalComment on above:Performed By: #### PTTHEP #### [facility] Laboratory [address] [place] [address] Dr. Jose GonsalesGlucose [Mass/Vol]121 mg/dLCritically vszl07-834Kqj [facility] HospitalComment on above:Performed By: #### PTTHEP #### [facility] Laboratory [address] [address] [address] Jose GonsalesPotassium [Moles/Vol]4.7 mmol/LNormal3.5-5.1[facility] Comment on above:Performed By: #### PTTHEP #### [facility] Laboratory [address] [address] [address] Jose GonsalesSodium [Moles/Vol]138 mmol/TGwmdph664-533PjsPromedica [facility] Hospital Comment on above:Performed By: #### PTTHEP #### [facility] Laboratory [address] [address] [address] Jose GonsalesUrea nitrogen [Mass/Vol]38.0 mg/dLCritically high7.0-18.0The [facility] HospitalComment on above:Performed By: #### PTTHEP #### [facility] Laboratory [address] [address] [address] Jose GonsalesUrea nitrogen/Creatinine [Mass ratio]17.1 mg/mgNormalThOhioHealth Grant Medical CenterComment on above:Performed By: #### PTTHEP #### [facility] Laboratory [address] [place] [address] Dr. Jose GonsalesNM STRESS/REST MULTIon [id number] STRESS/REST MULTIPatient: PARISH CONTRERAS Exam Date: 03/21/2022 : 1955 Gender:M Ordering : DR ELENO JENKINS M.D. Admission #: [id number] Family : DR JONAS SHEETS . Order #: [id number] CLICK HERE TO VIEW EXAM RADIOLOGY REPORT [...] Good. PERFUSION DEFECT: LOCATION: Mid-anterior. Apical anterior. [place]. SIZE: Medium (3-4 segments). SEVERITY: Severe. TYPE: Mixed. WALL MOTION: Severe hypokinesis: Mid-anterior. Apical anterior. [place]. LV SIZE: Enlarged; EDV 157 mL. TID [...] by: Brian Pate MD on 03/22/2022 at 07:09[facility] DIGOXINon 70-79-7299RVD6.1 ng/mLNormal0.8-2.0[facility] on above:Performed By: #### PTTHEP #### [facility] Laboratory [address] [place] [address] Dr. Jose ReddyXINvioletta 19-08-3897BJL6.1 ng/mLNormal0.8-2.0The [facility] HospitalComment on above:Performed By: #### PTTHEP #### [facility] Laboratory [address] [place] [address] Dr. Jose Sharpe 58-50-0521Zjogbxbyxqs peptide B (Bld) [Mass/Vol]353.0 pg/mL Normal<=900.0The [facility] on above:Performed By: #### PT #### [facility] Laboratory [address] [place] [address] Dr. Jose BRIGGS ADMDiandra 58-30-6517JT [Catalytic activity/Vol]122 U/L Rkrpkk22-319Jmi [facility] HospitalComment on above:Performed By: #### PT #### [facility] Laboratory [address] [place] [address] Dr. Jose Orlando.MB [Mass/Vol]0.94 ng/mLNormal<=2.37The [facility] Comment on above:Performed By: #### PT #### [facility] Laboratory [address] [place] [address] Dr. Jose VillelaTROP208.6 pg/mLCritically high4.0-42.2[facility] Comment on above:Result Comment: CUT-OFF POINTS HAVE BEEN ESTABLISHED BASED ON THE FOURTH UNIVERSAL DEFINITIONS OF MYOCARDIAL INFARCTION. THE UPPER REFERENCE LIMIT (URL) OF TROPONIN, DEFINED THE 99TH PERCENTILE OF cTnI DISTRIBUTION IN A REFERENCE POPULATION, HAS BEEN CONFIRMED THE DECISION THRESHOLD FOR ME DIAGNOSIS.Performed By: #### PT #### [facility] Laboratory [address] [place] [address] Dr. Jose Crawford96.0 ng/mLNormal<=121.0The [facility] HospitalComment on above: Performed By: #### PT #### [facility] Laboratory [address] [place] [address] Dr. Jose Marmolejo AUTO DIFFon 69-58-0819WBTF #0.0 103/ulNormal0.0-0.1The [facility] HospitalComment on above:Performed By: #### HPYLLC #### [facility] Laboratory [address] [place] [address] Dr. Jose GonsalesBasophils/100 WBC (Bld)0.3 %Normal0.2-2.0The [facility] Comment on above:Performed By: #### HPYLLC #### [facility] Laboratory [address] [place] [address] Dr. Jose Forman #0.1 103/ulNormal0.0-0.7The [facility] HospitalComment on above: Performed By: #### HPYLLC #### [facility] Laboratory [address] [place] [address] Dr. Jose Minaosinophils/100 WBC (Bld)1.9 %Normal0.9-7.0The [facility] Comment on above:Performed By: #### HPYLLC #### [facility] Laboratory [address] [place] [address] Dr. Jose Minarythrocyte distribution width (RBC) [Ratio]12.9 %Ktcjjx82.0-15.[address] [facility] HospitalComment on above:Performed By: #### HPYLLC #### [facility] Laboratory [address] [place] [address] Dr. Jose GonsalesHematocrit (Bld) [Volume fraction]45.6 %Xvnqfn49.0-54.0The [facility] HospitalComment on above:Performed By: #### HPYLLC #### [facility] Laboratory [address] [place] [address] Dr. Jose GonsalesHemoglobin (Bld) [Mass/Vol]15.1 g/bXBxtfys99.0-18.0The [facility] HospitalComment on above:Performed By: #### HPYLLC #### [facility] Laboratory [address] [place] [address] Dr. Jose Rajan #0.02 10e3/ulNormal0.00-0.03The [facility] HospitalComment on above:Performed By: #### HPYLLC #### [facility] Laboratory [address] [place] [address] Dr. Jose Rajan %0.3 %Normal0.0-0.5The [facility] HospitalComment on above: Performed By: #### HPYLLC #### [facility] Laboratory [address] [place] [address] Dr. Jose FloresMPH #2.0 103/ulNormal1.2-3.8The [facility] HospitalComment on above:Performed By: #### HPYLLC #### [facility] Laboratory [address] [place] [address] Dr. Jose Floresmphocytes/100 WBC (Bld)29.5 %Revrme68.5-60.0The [facility] HospitalComment on above:Performed By: #### HPYLLC #### [facility] Laboratory [address] [place] [address] Dr. Jose Figueroa DIFF REQNONormalThe [facility] HospitalComment on above: Performed By: #### HPYLLC #### [facility] Laboratory [address] [place] [address] Dr. Jose Michelle (RBC) [Entitic mass]31.1 gzBnzzdc42.9-34.0The [facility] HospitalComment on above:Performed By: #### HPYLLC #### [facility] Laboratory [address] [place] [address] Dr. Jose Michelle (RBC) [Mass/Vol]33.1 g/pNGzkiih59.9-35.2The [facility] HospitalComment on above:Performed By: #### HPYLLC #### [facility] Laboratory [address] [place] [address] Dr. Jose Michelle (RBC) [Entitic vol]94.0 hTRimlpa56.0-94.0The [facility] HospitalComment on above:Performed By: #### HPYLLC #### [facility] Laboratory [address] [place] [address] Dr. Jose Morales #0.7 103/ulNormal0.3-0.8The [facility] HospitalComment on above:Performed By: #### HPYLLC #### [facility] Laboratory [address] [place] [address] Dr. Jose Clarkeocytes/100 WBC (Bld)10.4 %Normal1.7-12.0The [facility] Comment on above:Performed By: #### HPYLLC #### [facility] Laboratory [address] [place] [address] Dr. Jose Gleason #3.9 103/ulNormal1.4-6.5The [facility] HospitalComment on above:Performed By: #### HPYLLC #### [facility] Laboratory [address] [place] [address] Dr. Jose Wheelerutrophils/100 WBC (Bld)57.6 %Vqrptb19.0-75.0The [facility] HospitalComment on above:Performed By: #### HPYLLC #### [facility] Laboratory [address] [place] [address] Dr. Jose GonsalesPlatelet mean volume (Bld) [Entitic vol]10.1 fLNormal9.5-13.5The [facility] HospitalComment on above:Performed By: #### HPYLLC #### [facility] Laboratory [address] [place] [address] Dr. Jose GonsalesPLT147 103/ulCritically cif390-533Odt [facility] HospitalComment on above:Performed By: #### HPYLLC #### [facility] Laboratory [address] [place] [address] Dr. Jose GonsalesRBC4.85 106/ulNormal4.70-6.10The [facility] HospitalComment on above:Performed By: #### HPYLLC #### [facility] Laboratory [address] [place] [address] Dr. Jose GonsalesWBC6.7 103/ulNormal4.0-11.0The [facility] HospitalComment on above: Performed By: #### HPYLLC #### [facility] Laboratory [address] [place] [address] Dr. Jose McGOXINon 53-15-0644LYG7.9 ng/mLNormal0.8-2.0[facility] HospitalComment on above:Performed By: #### HPYLLC #### [facility] Laboratory [address] [place] [address] Dr. Jose GonsalesTUNNELTON [facility] GLUCOSEon 69-98-6872Pmpwwzr [Mass/Vol]152 mg/dL Critically dgec64-195Ics [facility] HospitalComment on above:Performed By: #### HPYLLC #### [facility] Laboratory [address] [place] [address] Dr. Jose Moreland 14(COMP METB)on 66-92-0629Imxcgda [Mass/Vol]3.5 g/dLNormal 3.4-5.0The [facility] HospitalComment on above:Performed By: #### PT #### [facility] Laboratory [address] [place] [address] Dr. Jose GonsalesAlbumin/Globulin [Mass ratio]0.9 {ratio}NormalThe [facility] HospitalComment on above:Performed By: #### PT #### [facility] Laboratory [address] [place] [address] Dr. Jose LynP [Catalytic activity/Vol]57 U/QQqwrjk52-718Pjp [facility] HospitalComment on above:Performed By: #### PT #### [facility] Laboratory [address] [place] [address] Dr. Jose LynT [Catalytic activity/Vol]35 U/TMjivnk92-06Vgw [facility] HospitalComment on above:Performed By: #### PT #### [facility] Laboratory [address] [place] [address] Dr. Jose Bejaranoon gap [Moles/Vol]14.2 mmol/LNormalThe [facility] Comment on above:Performed By: #### PT #### [facility] [address] [place] [address] Dr. Jose GonsalesAST [Catalytic activity/Vol]24 U/LXdjzwk09-90Dca [facility] HospitalComment on above:Performed By: #### PT #### [facility] [address] [place] [address] Dr. Jose GonsalesBilirubin [Mass/Vol]0.4 mg/dLNormal0.2-1.3The [facility] Comment on above:Performed By: #### PT #### [facility] [address] [place] [address] Dr. Jose GonsalesCalcium [Mass/Vol]9.1 mg/dLNormal8.5-10.1The [facility] Comment on above:Performed By: #### PT #### [facility] [address] [place] [address] Dr. Jose GonsalesChloride [Moles/Vol]103 mmol/TPytazq51-249Kcj [facility] Comment on above:Performed By: #### PT #### [facility] [address] [place] [address] Dr. Jose GonsalesCO2 [Moles/Vol]24.8 mmol/ITtfkge23.0-30.0The [facility] Comment on above:Performed By: #### PT #### [facility] [address] [address] [address] Jose GonsalesCreatinine [Mass/Vol]1.94 mg/dLCritically high0.66-1.25The [facility] HospitalComment on above:Performed By: #### PT #### [facility] [address] [address] [address] Jose MinaGFR-AF RARVZATL97 mL/min/1.90e4Ogebtsthac low>=60The [facility] HospitalComment on above:Performed By: #### PT #### [facility] [address] [place] [address] Dr. Jose MinaGFR-NON AF WRUQLMZP54 mL/min/1.90i3Jlppnovyav low>=60The [facility] HospitalComment on above:Performed By: #### PT #### [facility] [address] [place] [address] Dr. Jose GonsalesGlobulin (S) [Mass/Vol]3.9 g/dLNormalThOhioHealth Grant Medical CenterComment on above:Performed By: #### PT #### [facility] [address] [place] [address] Dr. Jose GonsalesGlucose [Mass/Vol]125 mg/dLCritically zeaf79-743Yhj [facility] HospitalComment on above:Performed By: #### PT #### [facility] [address] [address] [address] Jose GonsalesPotassium [Moles/Vol]5.0 mmol/LNormal3.4-5.0[facility] Comment on above:Performed By: #### PT #### [facility] [address] [place] [address] Dr. Jose GonsalesProtein [Mass/Vol]7.4 g/dLNormal6.1-8.2The [facility] Comment on above:Performed By: #### PT #### [facility] [address] [place] [address] Dr. Jose Leonum [Moles/Vol]137 mmol/KKsudkq842-873Dfs [facility] Comment on above:Performed By: #### PT #### [facility] [address] [address] [address] Jose Marin nitrogen [Mass/Vol]37.0 mg/dLCritically high7.0-18.0The [facility] HospitalComment on above:Performed By: #### PT #### [facility] [address] [address] [address] Jose Marin nitrogen/Creatinine [Mass ratio]19.1 mg/mgNormalThe [facility] HospitalComment on above:Performed By: #### PT #### [facility] [address] [place] [address] Dr. Jose Root HEPARIN MONITORon [id number] Coag (Bld) [Time]27.3 s Critically low39.5-54.2The [facility] HospitalComment on above:Performed By: #### PTTHEP ####[facility] [address] [address]Dr. Jose GonsalesT3, TOTAL (TRIIODOTHYRONINE)on 90-76-1258E8, TOTAL95 ng/dL Ffifqs36-929Xto [facility] HospitalComment on above:Performed By: #### PT #### [facility] [address] [place] [address] Dr. Jose Sharpe 44-84-3180Wuaoarykvhy peptide B (Bld) [Mass/Vol]781.0 pg/mL Normal<=900.0The [facility] HospitalComment on above:Performed By: #### BNP, CMP ####[facility] [address] [address]. Jose GonsalesCARDIAC CHESTER 3-6on [id number] [Catalytic activity/Vol]331 U/L Critically ilji60-195Zyo [facility] HospitalComment on above:Result Comment: test repeatedPerformed By: #### PT #### [facility] [address] [place] [address] Dr. Jose Orlando.MB [Mass/Vol]2.24 ng/mLNormal<=2.37[facility] Comment on above:Performed By: #### PT #### [facility] [address] [place] [address] Dr. Jose JacksonOP430.1 pg/mLCritically high4.0-42.2[facility] Comment on above:Result Comment: CUT-OFF POINTS HAVE BEEN ESTABLISHED BASED ON THE FOURTH UNIVERSAL DEFINITIONS OF MYOCARDIAL INFARCTION. THE UPPER REFERENCE LIMIT (URL) OF TROPONIN, DEFINED THE 99TH PERCENTILE OF cTnI DISTRIBUTION IN A REFERENCE POPULATION, HAS BEEN CONFIRMED THE DECISION THRESHOLD FOR ME DIAGNOSIS. test repeatedPerformed By: #### PT #### [facility] [address] [place] [address] Dr. Jose Orlando [Catalytic activity/Vol]320 U/LCritically amrz45-324Nmh [facility] HospitalComment on above:Result Comment: test repeatedPerformed By: #### PT #### [facility] [address] [place] [address] Dr. Jose Orlando.MB [Mass/Vol]2.32 ng/mLNormal<=2.37[facility] Comment on above:Performed By: #### PT #### [facility] [address] [place] [address] Dr. Jose JacksonOP666.8 pg/mLCritically high4.0-42.2[facility] Comment on above:Result Comment: CUT-OFF POINTS HAVE BEEN ESTABLISHED BASED ON THE FOURTH UNIVERSAL DEFINITIONS OF MYOCARDIAL INFARCTION. THE UPPER REFERENCE LIMIT (URL) OF TROPONIN, DEFINED THE 99TH PERCENTILE OF cTnI DISTRIBUTION IN A REFERENCE POPULATION, HAS BEEN CONFIRMED THE DECISION THRESHOLD FOR ME DIAGNOSIS. test repeatedPerformed By: #### PT #### [facility] [address] [place] [address] Dr. Jose Marmolejo AUTO DIFFon [id number] #0.0 103/ulNormal0.0-0.1[facility] HospitalComment on above:Performed By: #### CBC #### [facility] [address] [place] [address] Dr. Jose GonsalesBasophils/100 WBC (Bld)0.1 %Critically low0.2-2.0The [facility] Hospitalment on above:Performed By: #### CBC #### [facility] [address] [place] [address] Dr. Jose Forman #0.0 103/ulNormal0.0-0.7The [facility] HospitalComment on above: Performed By: #### CBC #### [facility] [address] [place] [address] Dr. Jose Minaosinophils/100 WBC (Bld)0.1 %Critically low0.9-7.0The [facility] HospitalComment on above:Performed By: #### CBC #### [facility] [address] [place] [address] Dr. Jose iMnarythrocyte distribution width (RBC) [Ratio]12.9 %Vszrkx56.0-15.[address] [facility] HospitalComment on above:Performed By: #### CBC #### [facility] [address] [place] [address] Dr. Jose GonsalesHematocrit (Bld) [Volume fraction]43.4 %Muadbj44.0-54.0The [facility] on above:Performed By: #### CBC #### [facility] [address] [place] [address] Dr. Jose GonsalesHemoglobin (Bld) [Mass/Vol]14.7 g/rNPdiwlo76.0-18.0The [facility] HospitalComment on above:Performed By: #### CBC #### [facility] [address] [place] [address] Dr. Jose Rajan #0.03 10e3/ulNormal0.00-0.03The [facility] HospitalComselect specialty hospital on above:Performed By: #### CBC #### [facility] [address] [place] [address] Dr. Jose Rajan %0.4 %Normal0.0-0.5The [facility] HospitalComment on above: Performed By: #### CBC #### [facility] [address] [address] [address] Jose Heller #0.9 103/ulCritically low1.2-3.8The [facility] Comment on above:Performed By: #### CBC #### [facility] [address] [address] [address] Jose Morganhocytes/100 WBC (Bld)13.9 %Critically low20.5-60.0The [facility] HospitalComment on above:Performed By: #### CBC #### [facility] [address] [address] [address] Jose Figueroa DIFF REQNONormalThe [facility] HospitalComment on above: Performed By: #### CBC #### [facility] [address] [place] [address] Dr. Jose Michelle (RBC) [Entitic mass]31.1 avIhwoiu99.9-34.0The [facility] HospitalComment on above:Performed By: #### CBC #### [facility] [address] [place] [address] Dr. Jose Michelle (RBC) [Mass/Vol]33.9 g/kQPbwxth58.9-35.2The [facility] HospitalComment on above:Performed By: #### CBC #### [facility] [address] [place] [address] Dr. Jose Michelle (RBC) [Entitic vol]91.8 qSJjrkit70.0-94.0The [facility] HospitalComment on above:Performed By: #### CBC #### [facility] [address] [address] [address] Jose Morales #0.5 103/ulNormal0.3-0.8The [facility] HospitalComment on above:Performed By: #### CBC #### [facility] [address] [place] [address] Dr. Jose Clarkeocytes/100 WBC (Bld)7.0 %Normal1.7-12.0The [facility] Comment on above:Performed By: #### CBC #### [facility] [address] [address] [address] Jose Gleason #5.3 103/ulNormal1.4-6.5The [facility] HospitalComment on above:Performed By: #### CBC #### [facility] [address] [address] [address] Jose Wheelerutrophils/100 WBC (Bld)78.5 %Critically high43.0-75.0The [facility] HospitalComment on above:Performed By: #### CBC #### [facility] [address] [address] [address] Jose GonsalesPlatelet mean volume (Bld) [Entitic vol]10.1 fLNormal9.5-13.5The [facility] HospitalComment on above:Performed By: #### CBC #### [facility] [address] [address] [address] Jose GonsalesPLT129 103/ulCritically tiu265-508Fqp [facility] HospitalComment on above:Performed By: #### CBC #### [facility] [address] [address] [address] Jose GonsalesRBC4.73 106/ulNormal4.70-6.10The [facility] HospitalComment on above:Performed By: #### CBC #### [facility] [address] [address] [address] Jose GonsalesWBC6.8 103/ulNormal4.0-11.0The [facility] HospitalComment on above: Performed By: #### CBC #### [facility] [address] [address] [address] Garcia ChangECHOCARDIO M/2D COMPLETEon [id number] M/2D COMPLETE Patient: PARISH CONTRERAS Exam Date: 12/21/2021 : 1955 Gender:M Ordering : DR JONAS SHEETS . Admission #: [id number] Family : Order #: [id number] CLICK HERE TO VIEW EXAM ECHOCARDIOGRAM REPORT [...] Area(A4C): 17.90 cm2 Left Atrium Systolic Volume(A2C): 20810 mm3 Left Atrium Systolic Volume(A4C): 68557 mm3 Mitral Valve Mitral Valve E-Wave Peak [...] by: Eleno Jenkins M.D. on 12/21/2021 at 13:03[facility] HospitalPOINT OF CARE GLUCOSEon [id number] [Mass/Vol]169 mg/dLCritically xiwx78-206WcvPromedica [facility]iance Regional HospitalComment on above:Performed By: #### PTTHEP #### [facility] [address] [place] [address] Dr. Jose GonsalesGlucose [Mass/Vol]128 mg/dLCritically dtje86-797QchPromedica [facility] Regional HospitalComment on above:Performed By: #### PT #### [facility] [address] [place] [address] Dr. Jose GonsalesGlucose [Mass/Vol]151 mg/dLCritically pnrm56-207WbpPromedica [facility] Regional HospitalComselect specialty hospital on above:Performed By: #### PT #### [facility] [address] [place] [address] Dr. Jose GonsalesGlucose [Mass/Vol]136 mg/dLCritically jeqe28-237FxcPromedica Defiance Regional HospitalComselect specialty hospital on above:Performed By: #### PTTHEP #### [facility] [address] [place] [address] Dr. Jose GonsalesPROGisela 14(COMP METB)on 42-73-4738Wqrjrwu [Mass/Vol]3.3 g/dL Critically low3.4-5.0[facility] HospitalComselect specialty hospital on above:Performed By: #### BNP, CMP #### [facility] [address] [address] [address] Jose GonsalesAlbumin/Globulin [Mass ratio]0.9 {ratio}NormalPromedica Defiance Regional HospitalComment on above:Performed By: #### BNP, CMP #### [facility] [address] [address] [address] Jose LynP [Catalytic activity/Vol]53 U/CCzonpm57-789Sng [facility] HospitalComment on above:Performed By: #### BNP, CMP #### [facility] [address] [address] [address] Jose LynT [Catalytic activity/Vol]22 U/JDwmndv99-50Hej [facility] HospitalComment on above:Performed By: #### BNP, CMP #### [facility] [address] [place] [address] Dr. Jose Bejaranoon gap [Moles/Vol]12.8 mmol/LNormalThe [facility] Comment on above:Performed By: #### BNP, CMP #### [facility] [address] [place] [address] Dr. Jose GonsalesAST [Catalytic activity/Vol]21 U/HEbyjoa06-30Dyr [facility] HospitalComment on above:Performed By: #### BNP, CMP #### [facility] [address] [place] [address] Dr. Jose GonsalesBilirubin [Mass/Vol]0.5 mg/dLNormal0.2-1.3The [facility] Comment on above:Performed By: #### BNP, CMP #### [facility] [address] [place] [address] Dr. Jose GonsalesCalcium [Mass/Vol]8.7 mg/dLNormal8.5-10.1The [facility] Comment on above:Performed By: #### BNP, CMP #### [facility] [address] [place] [address] Dr. Jose GonsalesChloride [Moles/Vol]104 mmol/AQhwzal21-552Otm [facility] Comment on above:Performed By: #### BNP, CMP #### [facility] [address] [place], [place] [address] Dr. Jose GonsalesCO2 [Moles/Vol]25.8 mmol/HGpicvh51.0-30.0The [facility] Comment on above:Performed By: #### BNP, CMP #### [facility] [address] [place] [address] Dr. Joes GonsalesCreatinine [Mass/Vol]2.02 mg/dLCritically high0.66-1.25The [facility] HospitalComment on above:Performed By: #### BNP, CMP #### [facility] [address] [place] [address] Dr. Jose MinaGFR-AF HCFLIRCY11 mL/min/1.65y0Fcixuxkqiw low>=60The [facility] HospitalComment on above:Performed By: #### BNP, CMP #### [facility] [address] [place] [address] Dr. Jose MinaGFR-NON AF EUVLFNVE33 mL/min/1.99j3Siiehhffny low>=60The [facility] HospitalComment on above:Performed By: #### BNP, CMP #### [facility] [address] [place] [address] Dr. Jose GonsalesGlobulin (S) [Mass/Vol]3.6 g/dLNormalThOhioHealth Grant Medical CenterComment on above:Performed By: #### BNP, CMP #### [facility] [address] [place] [address] Dr. Jose GonsalesGlucose [Mass/Vol]170 mg/dLCritically anhx85-433Uof [facility] HospitalComment on above:Performed By: #### BNP, CMP #### [facility] [address] [place] [address] Dr. Jose GonsalesPotassium [Moles/Vol]4.6 mmol/LNormal3.4-5.0[facility] Comment on above:Performed By: #### BNP, CMP #### [facility] [address] [place] [address] Dr. Jose GonsalesProtein [Mass/Vol]6.9 g/dLNormal6.1-8.2[facility] Comment on above:Performed By: #### BNP, CMP #### [facility] [address] [place] [address] Dr. Jose Aldridgedium [Moles/Vol]138 mmol/SBpnhnz189-999Xei [facility] Comment on above:Performed By: #### BNP, CMP #### [facility] [address] [place] [address] Dr. Jose Marin nitrogen [Mass/Vol]40.0 mg/dLCritically high7.0-18.0The [facility] HospitalComment on above:Performed By: #### BNP, CMP #### [facility] [address] [place] [address] Dr. Jose Marin nitrogen/Creatinine [Mass ratio]19.8 mg/mgNoSouthern Ohio Medical CenterComment on above:Performed By: #### BNP, CMP #### [facility] [address] [place] [address] Dr. Jose GonsalesPROTIMEon [id number] Coag (PPP) [Relative time]1.08 {INR} NormalPromedica Defiance Regional HospitalComment on above:Performed By: #### PT #### [facility] [address] [place] [address] Dr. Jose Anne GUIDELINESSEE BELOWMount St. Mary HospitalComment on above:Result Comment: DESIRED INR: 2.0 - 3.0 CONDITIONS NOT LISTED BELOW 2.5 - 3.5 FOR PROSTHETIC HEART VALVE REPLACEMENT 2.5 - 3.5 RECURRENT THROMBOSIS Performed By: #### PT #### [facility] [address] [place] [address] Dr. Jose GonsalesPT Coag (PPP) [Time]11.6 sNormal9.0-11.6The [facility] Comment on above:Performed By: #### PT #### [facility] [address] [place] [address] Dr. Jose HymanT HEPARIN MONITORon [id number] Coag (Bld) [Time]55.6 s Critically high39.5-54.2The [facility] HospitalComment on above:Result Comment: test repeatedPerformed By: #### HPYLLC #### [facility] [address] [place] [address] Dr. Jose Cookg (Bld) [Time]25.6 sCritically low39.5-54.2The [facility] HospitalComment on above:Performed By: #### PTTHEP #### [facility] [address] [place] [address] Dr. Jose Harper [id number] [Mass/Vol]6.40 ug/dLNormal5.53-11.00The [facility] HospitalComment on above:Performed By: #### HPYLLC #### [facility] [address] [place] [address] Dr. Jose Tinoco [id number] uIU/mLNormal0.470-4.680The [facility] HospitalComment on above:Performed By: #### HPYLLC #### [facility] [address] [place] [address] Dr. Jose Jackson [facility] HospitalComment on above: Result Comment: <0.34 UIU/ml HYPERTHYROID 0.34-5.60 UIU/ml EUTHYROID >5.60 UIU/ml HYPOTHYROIDPerformed By: #### HPYLLC #### [facility] [address] [place] [address] Dr. Jose Marmolejo W MANUAL DIFFon [id number] LYMPH #NormalThe [facility] on above:Performed By: #### VIRIMAN #### [facility] [address] [place] [address] Dr. Jose RamosYPICAL LYMPH %NormalThe [facility] HospitalComselect specialty hospital on above: Performed By: #### MONICO #### [facility] [address] [place] [address] Dr. Jose Galeana #0.1 103/ulNormal0.0-0.3The [facility] HospitalComselect specialty hospital on above:Performed By: #### MONICO #### [facility] [address] [address] [address] Jose Galeana %1 %Normal0-5The [facility] HospitalComment on above:Performed By: #### MONICO #### [facility] [address] [address] [address] Jose Rosales #0.00 103/ulNormal0.00-0.10The [facility] HospitalComment on above:Performed By: #### MONICO #### [facility] [address] [address] [address] Jose Rosales %0.0 %Critically low0.2-2.0The [facility] HospitalComment on above:Performed By: #### MONICO #### [facility] [address] [place] [address] Dr. Jose Gasca #NormalThe [facility] HospitalComment on above:Performed By: #### MONICO #### [facility] [address] [place] [address] Dr. Jose Gasca %NormalThe [facility] HospitalComment on above:Performed By: #### MONICO #### [facility] [address] [place] [address] Dr. Jose GonsalesCORRECTED WBCNormal4.0-11.0The [facility] HospitalComment on above: Performed By: #### MONICO #### [facility] [address] [place] [address] Dr. Jose Keane #0.00 103/ulNormal0.00-0.70The [facility] HospitalComment on above:Performed By: #### MONICO #### [facility] [address] [place] [address] Dr. Jose Keane%0.0 %Critically low0.9-7.0The [facility] HospitalComment on above:Performed By: #### MONICO #### [facility] [address] [place] [address] Dr. Jose GonsalesHCT47.0 %Ezolvr82.0-54.0The [facility] HospitalComment on above: Performed By: #### MONICO #### [facility] [address] [address] [address] Jose GonsalesHGB15.6 g/ysRtcmbb84.0-18.0The [facility] HospitalComment on above: Performed By: #### MONICO #### [facility] [address] [address] [address] Jose Mckeon #0.43 103/ulCritically low1.20-3.80The [facility] Comment on above:Performed By: #### MONICO #### [facility] [address] [address] [address] Jose Mckeon%6.0 %Critically low20.5-60.0The [facility] HospitalComment on above:Performed By: #### MONICO #### [facility] [address] [address] [address] Jose GonsalesMCH30.8 bfFsvlya69.9-34.0The [facility] HospitalComment on above: Performed By: #### MONICO #### [facility] [address] [address] [address] Jose GonsalesMCHC33.2 g/jqIuzvfh65.9-35.2The [facility] HospitalComment on above:Performed By: #### MONICO #### [facility] [address] [address] [address] Jose GonsalesMCV92.9 cDFnvyjx74.0-94.0The [facility] HospitalComment on above: Performed By: #### CBCDANIEL #### [facility] [address] [place] [address] Dr. Jose BurgosOCYTE #NormalThe [facility] HospitalComment on above: Performed By: #### MONICO #### [facility] [address] [place] [address] Dr. Jose BurgosOCYTE %NormalThe [facility] HospitalComment on above: Performed By: #### MONICO #### [facility] [address] [address] [address] Jose Loving#0.29 103/ulCritically low0.30-0.80The [facility] Comment on above:Performed By: #### CBCDANIEL #### [facility] [address] [address] [address] Jose Loving%4.0 %Normal1.7-12.0The [facility] HospitalComment on above: Performed By: #### CBCDANIEL #### [facility] [address] [address] [address] Jsoe GonsalesMPV10.1 fLNormal9.5-13.5The [facility] HospitalComment on above: Performed By: #### CBCDANIEL #### [facility] [address] [address] [address] Jose Patel #NormalThe [facility] HospitalComment on above:Performed By: #### CBCDANIEL #### [facility] [address] [place] [address] Dr. Jose Patel %NormalThe [facility] HospitalComment on above:Performed By: #### CBCDANIEL #### [facility] [address] [place] [address] Dr. Jose GonsalesNRBCNormalThe [facility] HospitalComment on above:Performed By: #### CBCDANIEL #### [facility] [address] [place] [address] Dr. Jose VeraT139 103/ulCritically lpo479-090Tkc [facility] HospitalComment on above:Result Comment: no plt clumpingPerformed By: #### CBCDANIEL #### [facility] [address] [place] [address] Dr. Jose GonsalesRBC5.06 106/ulNormal4.70-6.10The [facility] HospitalComment on above:Performed By: #### CBCDANIEL #### [facility] [facility] [address] [address] [address] Jose GonsalesRDW13.0 %Ixsdwy07.0-15.0The [facility] Anne HospitalComment on above: Performed By: #### CBCDANIEL #### [facility] [address] [place] [address] Dr. Jose Multani #6.41 103/ulNormal1.40-6.50The [facility] HospitalComment on above:Performed By: #### MONICO #### [facility] [address] [address] [address] Jose Multani %89.0 %Critically high43.0-75.0The [facility] HospitalComment on above:Performed By: #### VIRIDANIEL #### [facility] [address] [address] [address] Jose GonsalesWBC7.2 103/ulNormal4.0-11.0The [facility] HospitalComment on above: Performed By: #### IVRIDANIEL #### [facility] [address] [address] [address] Jose GonsalesCT HEAD WO CONon 36-79-0160YV HEAD WO CONEXAMINATION: CT HEAD WO CON, [...] Electronically authenticated by: ORAL SMALLS Date: 2021-12-20 19:44NoSouthern Ohio Medical CenterCovid-19 PCR (CVDTB)on 12-43-8393PEGM-CoV-2 (COVID-19) RNA JORDON+probe Ql (Unsp spec)Not detectedNormalNOT DETECTEDThe [facility] Comment on above:Result Comment: When diagnostic testing is negative, the possibility of a false negative should be considered in the context of a patient's recent exposures and the presence of clinical signs and symptoms consistent with SARS-CoV-2. This test is not yet approved or cleared by the [place] Food and Drug Administration (FDA). This test was developed by [employer], [place], [place]. The performance characteristics of this test were validated by The [facility]. The results are not intended to be used as the sole means for clinical diagnosis or patient management decisions. The [facility] is authorized under Clinical Laboratory Improvement [...] for this test is supported by the Slasher of Health and Human Service's declaration that [...] used).Performed By: #### CVDTB #### [facility] [address] [place] [address] Dr. Jose Thurston AND [facility] 99-34-0383NXTJYYIEUOEQXChildren's Hospital of [facility] on above:Result Comment: Negative for Flu A protein angiten. Infection due to Flu A cannot be ruled out. FluA angiten in the sample may be below the detection limit of the test.Performed By: #### PT #### [facility] [address] [place] [address] Dr. Jose SharpUBNEGSTEFFEN [facility] on above: Result Comment: Negative for Flu B protein antigen. Infection due to Flu B cannot be ruled out. FluB antigen in the sample may be below the detection limit of the test.Performed By: #### PT #### [facility] [address] [place] [address] Dr. Jose Thurston AGNegativeNormalNEGATIVE SEE COMMENTThe [facility] on above:Performed By: #### PT #### [facility] [address] [address] [address] Jose GonsalesINFLUENZA B AGNegativeNormalNEGATIVE SEE COMMENTThe [facility] HospitalComment on above:Performed By: #### PT #### [facility] [address] [address] [address] Jose GonsalesINTERNAL CONTROLSWithin Normal LimitsNormalWithin Normal Limits The [facility] HospitalComment on above:Performed By: #### PT #### [facility] [address] [address] [address] Jose GonsalesPROF CHEM 8 (BAS METB)on 44-20-5627Wecux gap [Moles/Vol]16.9 mmol/LNormalThe [facility] HospitalComment on above:Performed By: #### HPYLLC #### [facility] [address] [place] [address] Dr. Jose GonsalesCalcium [Mass/Vol]9.3 mg/dLNormal8.5-10.1The [facility] Comment on above:Performed By: #### HPYLLC #### [facility] [address] [place] [address] Dr. Jose GonsalesChloride [Moles/Vol]102 mmol/REkyqjz97-292Emh [facility] Comment on above:Performed By: #### HPYLLC #### [facility] [address] [place] [address] Dr. Jose GonsalesCO2 [Moles/Vol]23.0 mmol/RXzzrbi13.0-30.0The [facility] Comment on above:Performed By: #### HPYLLC #### [facility] [address] [place] [address] Dr. Jose GonsalesCreatinine [Mass/Vol]2.41 mg/dLCritically high0.66-1.25The [facility] HospitalComment on above:Performed By: #### HPYLLC #### [facility] [address] [place] [address] Dr. Garcia ChangEGFR-AF HRHANGWD99 mL/min/1.48u3Pqqznzoscn low>=60The [facility] HospitalComment on above:Performed By: #### HPYLLC #### [facility] [address] [address] [address] Jose MinaGFR-NON AF BWFVBHQG42 mL/min/1.44f0Kdfxdjwfmm low>=60The [facility] HospitalComment on above:Performed By: #### HPYLLC #### [facility] [address] [address] [address] Jose GonsalesGlucose [Mass/Vol]239 mg/dLCritically mqax10-949Ilm [facility] HospitalComment on above:Performed By: #### HPYLLC #### [facility] [address] [address] [address] Jose GonsalesPotassium [Moles/Vol]4.9 mmol/LNormal3.4-5.0[facility] Comment on above:Performed By: #### HPYLLC #### [facility] [address] [address] [address] Jose GonsalesSodium [Moles/Vol]137 mmol/PUfdkny406-141Nzb [facility] Comment on above:Performed By: #### HPYLLC #### [facility] [address] [address] [address] Jose GonsalesUrea nitrogen [Mass/Vol]46.0 mg/dLCritically high7.0-18.0The [facility] HospitalComment on above:Performed By: #### HPYLLC #### [facility] [address] [address] [address] Jose Marin nitrogen/Creatinine [Mass ratio]19.1 mg/mgNormalThe [facility] HospitalComment on above:Performed By: #### HPYLLC #### [facility] [address] [address] [address] Jose Valdez, HIGH SENSITIVITYon 48-66-9537ZBGFKK808.7 pg/mL Critically high4.0-42.2The [facility] HospitalComment on above:Result Comment: CUT-OFF POINTS HAVE BEEN ESTABLISHED BASED ON THE FOURTH UNIVERSAL DEFINITIONS OF MYOCARDIAL INFARCTION. THE UPPER REFERENCE LIMIT (URL) OF TROPONIN, DEFINED THE 99TH PERCENTILE OF cTnI DISTRIBUTION IN A REFERENCE POPULATION, HAS BEEN CONFIRMED THE DECISION THRESHOLD FOR ME DIAGNOSIS. test repeatedPerformed By: #### PT #### [facility] [address] [address] [address] Jose GonsalesHSTROP696.3 pg/mLCritically high4.0-42.2[facility] Comment on above:Result Comment: CUT-OFF POINTS HAVE BEEN ESTABLISHED BASED ON THE FOURTH UNIVERSAL DEFINITIONS OF MYOCARDIAL INFARCTION. THE UPPER REFERENCE LIMIT (URL) OF TROPONIN, DEFINED THE 99TH PERCENTILE OF cTnI DISTRIBUTION IN A REFERENCE POPULATION, HAS BEEN CONFIRMED THE DECISION THRESHOLD FOR ME DIAGNOSIS. test repeatedPerformed By: #### HPYLLC #### [facility] [address] [address] [address] Jose GonsalesXR CHEST 1 Von 80-34-8978HY CHEST 1 VEXAM: XR CHEST 1 V, 12/20/2021 HISTORY: SHORTNESS OF BREATH COMPARISON: Previous x-ray from 05/24/2021. TECHNIQUE: Portable AP upright view of the chest. FINDINGS: Moderate cardiomegaly. Status post sternotomy. No focal consolidation or pulmonary edema. Low lung volumes. Unremarkable bony structures. No acute cardiopulmonary findings. IMPRESSION: Moderate cardiomegaly. No significant interval change. Electronically authenticated by: MARIANELA HERRING Date: 2021-12-20 20:44NormTrinity Health System [facility] METABOLIC PANELon 84-31-7322Yztdcxi [Mass/Vol]4.4 g/dL Normal3.5-5.7The [facility] ShawComment on above:Performed By: #### [id number] #### [facility] [address] [place] [address], USAALKALINE FSWFXP01 IU/ZYvyjbh86-052Kfu [facility] ShawComment on above:Performed By: #### [id number] #### [facility] [address] [place] [address], USAALT [Catalytic activity/Vol]19 U/LNormal7-52The [facility] ShawComment on above:Performed By: #### [id number] #### [facility] [address] [place] [address], USAAST [Catalytic activity/Vol]18 U/TJfmguo11-68Zdd [facility] ShawComment on above:Performed By: #### [id number] #### [facility] [address] [place] [address], USABilirubin [Mass/Vol]0.5 mg/dLNormal0.3-1.0The [facility] ShawComment on above:Performed By: #### [id number] #### [facility] [address] [place] [address], USACalcium [Mass/Vol]9.6 mg/dLNormal8.6-10.3The [facility] ShawComment on above:Performed By: #### [id number] #### [facility] [address] [place] [address], USAChloride [Moles/Vol]107 mmol/UZwkzfo54-960Ise [facility] ShawComment on above:Performed By: #### [id number] #### [facility] [address] [place] [address], USACO2 [Moles/Vol]26 mmol/NZleuxd40-09Jrk [facility] ShawComment on above:Performed By: #### [id number] #### [facility] [address] [place] [address], USACreatinine [Mass/Vol]2.01 mg/dLHigh0.70-1.30The [facility] ShawComment on above:Performed By: #### [id number] #### [facility] [address] [place] [address], USAeGFR- Hchbytnn77 ml/min/1.73sq mAbnormal>60The [facility] ShawComment on above:Performed By: #### [id number] #### [facility] [address] [place] [address], USAeGFR- non- Awvkabxp80 ml/min/1.73sq mAbnormal>60The [facility] ShawComment on above:Performed By: #### [id number] #### [facility] [address] [place] [address], USAGlucose [Mass/Vol]130 mg/rCVlep76-573Hpv [facility] ShawComment on above:Performed By: #### [id number] #### [facility] [address] [place] [address], USAPotassium [Moles/Vol]5.1 mmol/LNormal3.5-5.1The [facility] ShawComment on above:Performed By: #### [id number] #### [facility] [address] [place] [address], USAProtein [Mass/Vol]7.1 g/dLNormal6.0-8.3The [facility] ShawComment on above:Performed By: #### [id number] #### [facility] [address] [place] [address], USASodium [Moles/Vol]139 mmol/YSsjagk448-095Abw [facility] ShawComment on above:Performed By: #### [id number] #### [facility] [address] [place] [address], USAUrea nitrogen [Mass/Vol]37 mg/dLHigh7-25The [facility] ShawComment on above:Performed By: #### 87811 #### [facility] [address] [place] [address], USAHEMOGLOBIN A1Con 02-74-6856Zojsftj [Moles/Vol]157 mmol/L NormalThe [facility] ShawComment on above:Performed By: #### [id number] #### [facility] [address] [place] [address], RTUZnV1o (Bld) [Mass fraction]7.1 %High4.0-6.0The [facility] ShawComment on above:Performed By: #### [id number] #### [facility] [address] [place] [address], USAHIV VIRAL LOADon 78-12-8774YWN QNT RNA PCR:Not detected NormalThe [facility] ShawComment on above:Result Comment: The Aptima HIV Quant assay is a real-time fundraising director-mediated amplification (TMA) test which has a dynamic [...] the presence of HIV-1 infection.Performed By: #### [id number] #### [facility] [address] [place] [address], USALOG 10 COPIESNot detectedNormalThe [facility] ShawComment on above:Performed By: #### [id number] #### [facility] [address] [place] [address], USAURINALYSISon 26-89-6899Cqwvbcdilg (U)CLEARNormalCLEARThe [facility] ShawComment on above:Performed By: #### [id number] #### [facility] [address] [place] [address], USABilirubin Ql (U)NegativeNormalNEGATIVEThe [facility] ShawComment on above:Performed By: #### [id number] #### [facility] [address] [place] [address], USAColor (U)YELLOWNormalYELLOWThe [facility] ShawComment on above:Performed By: #### [id number] #### [facility] [address] [place] [address], USAEPISNONE SEENNormalFEW,OCC,NONE SEENThe [facility] ShawComment on above:Performed By: #### [id number] #### [facility] [address] [place] [address], USAGlucose Ql (U)NegativeNormalNEGATIVEThe [facility] ShawComment on above:Performed By: #### 72675 #### [facility] [address] [place] [address], USAHemoglobin Ql (U)TRACEAbnormalNEGATIVEThe [facility] ShawComment on above:Performed By: #### [id number] #### [facility] [address] [place] [address], USAKETONENegativeNormalNEGATIVEThe [facility] ShawComment on above:Performed By: #### [id number] #### [facility] [address] [place] [address], USALEUK ESTERNegativeNormalNEGATIVEThe [facility] ShawComment on above:Performed By: #### [id number] #### [facility] [address] [place] [address], USANitrite Ql (U)NegativeNormalNEGATIVEThe [facility] ShawComment on above:Performed By: #### [id number] #### [facility] [address] [place] [address], USApH (U)6.0 [pH]Normal5.0-8.0The [facility] ShawComment on above:Performed By: #### 57478 #### [facility] [address] [place] [address], USAProtein Ql (U)NegativeNormalNEGATIVEThe [facility] ShawComment on above:Performed By: #### [id number] #### [facility] [address] [place] [address], USARBC0-2AbnormalNONE SEENThe [facility] ShawComment on above:Performed By: #### 60274 #### [facility] [address] [place] [address], USASPEC GRAV1.655Sknp6.015-1.020The [facility] ShawComment on above:Performed By: #### 23704 #### [facility] [address] [place] [address], USAWBC UANONE SEENNormalNONE SEENThe [facility] ShawComment on above:Performed By: #### [id number] #### [facility] [address] [place] [address], [facility] Encounters Encounter DateEncounter TypeCare ProviderFacilityStart: 08-05-2025 End: 07-42-6887ynxplynuchUthkpvy R NILLFacility:[facility] Hospitaltart: 08-05-2025 End: 05-34-3820Bekthmv encounter procedureMichael R NILL [phone]-BtnzoUniversity Hospitals [facility] General Surgery Chris Start: 07-23-2025 End: 01-75-5844qutvqbjrixBuhmrzn R Nill-LAB Path Spec [place] HospStart: 07-23-2025 End: 64-74-7657Enobtofd ReferredMichael R Nill FACS-LAB Path Spec [place] HospStart: 07-23-2025 End: 43-60-7253zvrkiiyzorRcvweor R NILLFacility:CD:[id number]: 07-09-2025 ambulatoryOhioHealth Hardin Memorial Hospitaltart: 07-01-2025 End: 04-63-5580xipwcflmwmHowjlmw R NILLFacility:[facility] Hospitaltart: 07-01-2025 End: 18-19-6410Uxvqoxf encounter procedureMichael R NILL [phone]-WxxnjUniversity Hospitals Ahu[facility] General Surgery Chris Start: 29-58-3468pnljjnomzsQNNHOhioHealth Hardin Memorial Hospitaltart: 05-13-2025 End: 29-18-6806oossjjnutgHVVQVNW Bertrand [facility] Start: 19-08-5267mlxlmytqscVXHBOhioHealth Hardin Memorial Hospitaltart: 30-79-2097uishnmkxsjQGRTOhioHealth Hardin Memorial Hospitaltart: 04-17-2025 End: 06-58-2477cbapmiiczbQFIMEHADetwiler Memorial Hospitaltart: 69-29-5344gzwzzjsbgmXCWHOhioHealth Hardin Memorial Hospitaltart: 69-80-5868xamomsgvgzEAWSOhioHealth Hardin Memorial Hospitaltart: 89-06-6790pbqgqgycthSXZMOhioHealth Hardin Memorial Hospitaltart: 26-80-5701yiuurdlqhdUPONOhioHealth Hardin Memorial Hospitaltart: 27-85-3492aytxreimpbEJXZOhioHealth Hardin Memorial Hospitaltart: 13-35-4663fasqmtnbwyXFHTHKZUniversity Hospitals Cleveland Medical Centertart: 11-05-2024 End: 21-37-6008tpclypowihQNHSOMZRegency Hospital [facility] West Start: 10-29-2024 End: 60-34-1685pzdialzqajKCEURWilson Memorial Hospitaltart: 83-01-6281nwbrpjxrdiIWTYOhioHealth Hardin Memorial Hospitaltart: 50-92-1174wlcgdmijqlGPYAOhioHealth Hardin Memorial Hospitaltart: 82-17-8660zrqlbtryehZOJCOhioHealth Hardin Memorial Hospitaltart: 02-39-3960xsrldpfdaxCSXXOhioHealth Hardin Memorial Hospitaltart: 29-57-5785fnszfoolbuWNHM CHACKOFacilthe [facility]:N2Cilli: 09-14-2022 End: 18-30-0696rrcuwqvaoeWR JONAS HOYFacility:Y3Nctal: 82-93-5898yvvwtxbqzkPJ ELENO FATIMAELFacility:E1Zlkvr: 05-16-2022 End: 08-17-0834xfwnwvmjiwEI ELENO FATIMAELFacility:M6Srppl: 04-05-2022 Encounter for other preprocedural examinationDR ELENO RUTLEDGEKettering Memorial Hospital HospitalStart: 38-09-9381Vatwyasjv for preprocedural laboratory examinationDR ELENO WYLIEDayton [facility] Center HospitalStart: 04-05-2022 End: 61-81-6330mibnkjyfjvJZHQWAW HOYFacility:UTMCStart: 04-01-2022 End: 74-29-9913igtyasasqzBX ELENO FATIMAELFacility:A2Iqodx: 04-01-2022 End: 92-89-0653Iwphyyapu for other preprocedural examinationDR ELENO JENKINS Facility:U7Xaerr: 03-21-2022 End: 35-62-1807iamogcvpoxEB ELENO FATIMAELFacility:L0Kuoqp: 01-11-2022 ambulatoryMOHAMAD ALGHOTHANIFacility:P2Wmeje: 01-03-2022 End: 92-27-2274bghjawxlcvTG ELENO WYLIERBELFacility:L6Ofdza: 12-24-2021 End: 21-21-1468qhponhkxyvIQ JONAS HOYFacility:C8Tqckx: 12-20-2021 End: 83-91-3333ntwhwbatsfSO JONAS HOYFacility:H1 Procedures DateProcedureProcedure DetailPerforming ClinicianStart: 32-87-7427Pjnytvnfsni Jose NILL Start: 18-45-9801IMC screeningDR ELENO WYLIEVRENCHAO Comment on above:Performed By: #### PTTHEP #### [facility] [address] [place] [address] Dr. Jose GonsalesStart: 46-84-9918NqbxwrtkoorNloohtn NILL Start: 68-80-7963Gistvr of umbilical herniaMichael NILL Cardiac catheterizationMichael NILL Coronary artery bypass graftMichael NILL Implantation of insertable loop recorderMichael NILL Incision and drainage of abscessMichael NILL Comment on above:thighLaparoscopic cholecystectomy Jose NILL Immunizations Immunization DateImmunizationNotesCare VebkphiqWqlyrxqi13-67-7262ththtmftj virus vaccine, unspecified formulationMichael NILL [phone]-IjlayOhiohealth O'Blen[facility] [place] 16-80-9703XGIT-CoV-2 (COVID-19) mRNA-1273 vaccineMichael NILL [phone]-YudypOhiohealth O'Bleness Hospital [facility] [place] 06-41-3007BEBU-CoV-2 (COVID-19) mRNA-1273 vaccineMichael NILL [phone]-ZiioyUniversity Hospitals Ahuja Medical Center General Surgery [place] Comment on above:Result Comment: 2023-02-08: OPB4915-72-6320CLRT-VtA-3 (COVID- 19) mRNA-1273 vaccineMichael NILL [phone]-FeejiOhiohealth O'Bleness Hospital [facility] [place] Comment on above:Result Comment: 2023-02-08: [id number] Payers DatePayer CategoryPayerPolicy [id number]-pay2025Medicare [id number]-wef [id number] .16.840.1.910060.3.57[id number] 2.16.840.1.546204.3.57[id number] 2.16.840.1.335466.3.57[id number] 2.16.840.1.978904.3.57[id number] 2.16.840.1.534742.3.57[id number] 2.16.840.1.763532.3.57[id number] 2.16.840.1.081874.3.57[id number] 2.16840.1.658449.3.57[id number] 2.16840.1.713983.3.57[id number] 2.16.840.1.284457.3.57[id number] 2.840.1.415386.3.57[id number] 2.16840.1.396419.3.57[id number] 2.16.840.1.743308.3.57[id number] 2.16.840.1.796445.3.57[id number] 2.16.840.1.39[id number] 2.16.840.1.650706.3.579.2.531 Social History DateTypeDetailFacilityStart: 07-01-2025 End: 98-11-8780Tshponi smoking statusNever smoked tobacco (finding)[facility] BellevueTobacco smoking statusNeverOhiohealth O'Bleness Hospital Surgery BellevueSexual OrientationOhiohealth O'Bleness Hospital [facility] [place] Sex Assigned At [facility] SexMale (finding)[facility] HospitalTobaharper [facility] smoking status NHISUnknown if ever smokedDayton Osteopathic Hospital Work Phone: Start: 78-46-3190Mrc Assigned At [facility] Clinical Notes 03-21-2022 to 07-01-2025 Note Date & GzlxZmbeOoahzuja76-25-9114 NoteGeneral Surgery Office/Clinic Note Chief Complaint consultation [...] mg oral tablet, 10 (more content not included)...[facility] HospitalComment on above:Result Comment: Electronically Signed By: ROSITA LANDEROS, Jose Alanis.aruna\Date and Time Signed: 07/01/25 19:41 [id number] Note Medication adherence counselling was provided, including using reminders HIV transmission reviewed Counseled on safe sex, using condoms, U=U, he is not active Continue tivicay and prezcobixSelect Medical [facility]08-19-2025 Note Subjective Patient ID: Parish Contreras is [...] Aptima HIV Quant assay is a real-time fundraising director-mediated amplification (TMA) test which has a dynamic [...] diagnosis 2000. 2001 Kaletra/zer (more content not included)...[facility]08-19-2025 NoteParish Contreras seated comfortably in exam room. [...] initials. Samples sent to lab via clinic formula maker schedule.[facility]07-24-2025 NoteCardiovascular Medicine [facility] SUBJECTIVE Chief Complaint Patient presents with [...] 0.6 eGFR 11/05/2024 37.7 (more content not included)...[facility]07-24-2025 NotePatient is here today for a 6 [...] exertion. Musculoskeletal: Positive for back pain and stiffness.[facility]07-21-2025 NoteEligibility: Patient meets program eligibility. Documentation turned in [facility]/2025[facility] NoteWest [facility]. Patient reports daughter typically assist with renewal process. Patient did take down [facility] phone number & email address. Application was completed, will be submitted along with supportive documents when received.[facility]06-24-[facility]. Patient reports daughter typically assist with renewal process. Patient did take down [facility] phone number & email address. Application was completed, will be submitted along with supportive documents when received.[facility]06-24-2025 Note03/18 - [facility] reached out to Patient regarding program eligibility. Patient did not answer, [facility] left a voicemail.[facility]02-14-2025 Note- [facility]- Patient to continue on Tivicay and Prezcobix while obtaining routine HIV labs again today. - Medication adherence counselling was provided, including using reminders - HIV transmission reviewed - Counseled on safe sex, using condoms, U=U, the risk of increasing incidence of STDs including [facility]Un[facility]02-11-2025 Note Administered Hep A Vaccine per provider order. Pt tolerated injection/medication with no adverse effects. Correct medication verified by a 2nd medical staff field marketing team leader. Left deltoid, IM.[facility]02-11-2025 Note Attestation signed by Ceasar Lucero MD at 11/08/2024 8:59 PM (Updated) [...] only prezcobix and tivicay daily. VL still - 2023: Continuing management with Tivicay and Prezcobix. [...] (CMS/HCC) Myocardial infarction (CMS/HCC) Neuropathy Stroke (cerebrum) ([facility]/HCC) Patient Active Problem List Diagnosis Atrial flutter (CMS/HCC) Benign prostatic hyperplasia Essential hypertension Human immunodeficiency virus infection (CMS/HCC) Hyperlipidemia Hypothyroidism Neuralgia and neuritis, unspecified Legal blindness Type 2 diabetes mellitus without complication (CMS/HCC) Transient ischemic attack Onychomycosis due to dermatophyte Pure hyperglyceridemia Costal chondritis (more content not included)...[facility]02-04-2025 NoteUT Cardiology - [facility] Subjective Parish Contreras is a 69 y.o. year old male patient being seen for Atrial Fibrillation, Coronary Artery Disease, Hyperlipidemia, Congestive Heart Failure, and Shortness of Breath Patient Active Problem List Diagnosis Atrial flutter (CMS/HCC) Benign prostatic hyperplasia Essential hypertension Human immunodeficiency virus infection ([facility]/HCC) Hyperlipidemia Hypothyroidism Neuralgia and neuritis, unspecified Legal blindness Type 2 diabetes mellitus without complication ([facility]/HCC) Transient ischemic attack Onychomycosis due to dermatophyte Pure hyperglyceridemia Costal chondritis Increased frequency of urination S/P ablation of atrial flutter Weight loss, unintentional Chronic systolic heart failure ([facility]/HCC) Coronary artery disease of bypass graft of [place] heart with stable angina pectoris ([facility]/HCC) Stage 3b chronic kidney disease ([facility]) Personal history of colonic polyps Anemia Bradycardia Cardiomyopathy, ischemic Diabetes ([facility]/HCC) History of myocardial infarction Hx-TIA (transient ischemic attack) Peripheral polyneuropathy Paroxysmal A-fib ([facility]/HCC) Atherosclerotic heart disease Cortical blindness Preventative health care Primary osteoarthritis of both knees Cerebral infarction ([facility]/HCC) Displacement of lumbar intervertebral disc without myelopathy Lumbar hernia Thrombophilia ([facility]/HCC) HPI Patient has history of coronary artery [...] Never BSA 2.17 m??? (more content not included)...[facility]02-03-2025 Note HIV Quantitative RNA Date Value 05/07/2024 [...] 06/28/2011, 05/07/2024 Unspecified Sars-Cov-2 Vaccination 12/22/2020, 01/19/2021, 09/15/2021[facility]06-27-2022 NoteCARDIAC STRESS TEST Requesting Physician: Procedure Date:03/21/2022 Lexiscan Stress Test with Myocardial Perfusion Imaging performed at the [facility] on 03/21/2022. Informed consent was obtained. [...] Myocardial perfusion images will be reported separately. [facility] Signed and Approved by: DR ELENO JENKINS 03/29/2022 20:54:00[facility] No data available for this section [facility] [place] Evaluation noteNo assessment information available [facility] Work Phone: Hospital Discharge instructions No data available for this section [facility] Progress note No data available for this section [facility] Reason for referral (narrative)No reason for referral information availableOhio[facility] Work Phone: Summary Purpose Family History No Family History Records FoundNo Family History Records Found No data available for this section No Family History Records FoundNo Family History Records FoundNo Family History Records Found No data available for this section Advance Directives No Advanced Directives Records FoundNo Advanced Directives Records FoundNo Advanced Directives Records FoundNo Advanced Directives Records FoundNo Advanced Directives Records Found Additional Source Comments (unrecognized sect ion and content) No Status Records FoundNo Status Records FoundNo Status Records FoundNo Status Records FoundNo Status Records Found INFORMATION SOURCE (unrecogn ized section and content) DATE CREATED AUTHOR 04/13/2022 [facility] DATE CREATED AUTHOR AUTHOR'S ORGANIZ ATION 09/26/2022 [facility] DATE CREATED AUTHOR AUTHOR'S ORGANIZ ATION 07/25/[address] [facility] DATE CREATED AUTHOR AUTHOR'S ORGANIZ ATION 08/06/2025 [facility] DATE CREATED AUTHOR AUTHOR'S ORGANIZ ATION 08/06/2025 [facility] Patient Care team informatio n (unrecognized section and content) Personnel Name: Jonas Sheets MD Address: [address] [place] [address] Telecom: Team Status: Inactive Member Role/Relationship Status Dates Jose Infante MD FACS Attending Provider Active Start: July 23, 2025 End: July 23, 2025 Goals (unrecognized section and content) Goals may be documented in a n alternate section FOR RECORDS PERTAINING TO PATIENTS WHO ARE [...] BE BASED ON THE PRIMARY CLINICAL RECORDS. [facility]. provides no warranty or guarantee of the accuracy or completeness of information in this document.
--- NOTE | 2025-09-02 14:00 | CA_ITS ---
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 Interpretive Statements Summary of the findings: At baseline: Right leg: SARAH= 1.16; TBI= 0.85. Doppler waveforms demonstrate multiphasic flow at the posterior tibial and dorsalis pedis arteries. Left leg: SARAH= 1.13; TBI= 0.96. Doppler waveforms demonstrate multiphasic flow at the posterior tibial and dorsalis pedis arteries. Pulse volume recordings: PVRs at the ankle levels show normal waveforms. Post exercise: Right leg: SARAH= 1.21; Left leg: SARAH= 1.12. PVRs at the ankle levels show normal waveforms. Conclusion: The study shows no evidence of PAD with normal overall arterial flow at rest and with exercise. Electronically Signed On 09-02-2025 20:16:26 EST by ELENO JOHNSON M.D.
--- NOTE | 2025-09-02 14:00 | CA_ITS ---
Patient Name: PARISH RAY MR#: [id number] : 1955 Exam Date: 09/02/2025 Ordering Doctor: WILI KAUR CNP ECHOCARDIOGRAM REPORT PROCEDURE: CA ECHO DOPPLER COMPLETE INDICATIONS: Fatigue, heart failure, atrial flutter - ablation, CABG COMPARISON: None. DESCRIPTION: COMPLETE ECHOCARDIOGRAM Real-time transthoracic echocardiography with 2D, M-mode, spectral and color flow Doppler performed. QUALITY: Technical quality was good. LEFT VENTRICLE: Normal chamber size. Thickened septal wall. Normal global systolic function. There is akinesis of the basal inferolateral wall. Estimated left ventricular ejection fraction is 55%. LV EF: Normal left ventricular ejection fraction, (55%). DIASTOLIC: Diastolic function is indeterminate. ATRIAL SEPTUM: Visually appears intact. LEFT ATRIUM: Mild dilatation. RIGHT ATRIUM: Mild dilatation. RIGHT VENTRICLE: Mild dilatation. Normal right ventricular systolic function. TRICUSPID VALVE: Normal mobility and thickness. No stenosis with no regurgitation. Unable to assess right-sided pressures due to lack of measurable tricuspid regurgitation. MITRAL VALVE: Normal mobility and thickness. No evidence of mitral valve stenosis. There is no mitral annular calcification. No mitral regurgitation. AORTIC VALVE: Normal trileaflet appearance. Mildly calcified aortic valve. Normal leaflet mobility. No evidence of aortic valve stenosis. No aortic regurgitation. AORTIC ROOT: Normal diameter and appearance, measuring 2.9 cm. PULMONIC VALVE: Normal thickness and mobility. No stenosis. Trivial regurgitation. PERICARDIUM: No evidence of pericardial effusion. IVC: Collapses with inspiration. IVC is dilated (2.2 cm) PLEURA: CONCLUSION: 1. Normal left ventricular size with normal global systolic function. There is akinesis of the basal inferolateral wall. Estimated LVEF is 55%. 2. Mildly dilated right ventricle with normal systolic function. 3. Mild biatrial dilatation. 4. No significant valvular dysfunction. 5. Unable to assess right-sided pressures due to lack of measurable tricuspid regurgitation. Adult Echocardiography Procedure Report Left Ventricle LVEDD (3.7 - 5.6 cm): 5.03 cm LVESD (2.2 - 4.0 cm): 4.09 cm LVIVS thickness (0.6 - 1.2 cm): 1.29 cm LVPW thickness (0.5 - 1.0 cm): 1.03 cm e': 0.12 m/s E - e': 4.52 LVOT Max Gradient: 3.18 mm[Hg] LVOT Area (cm2): 0.89 m/s Peak Velocity (LVOT): 0.89 m/s Mean Velocity (LVOT): 0.55 m/s LVOT Diameter 1.99 cm Left Ventricular Ejection Fraction: 55% Left Atrium LA Volume Index (2D A2C): 32.69 ml/m2 Left Atrium Systolic Dimension: 4.30 cm Mitral Valve MV E to A Ratio: 0.72 Mitral Valve A-Wave Peak Velocity: 0.74 m/s Mitral Valve E-Wave Peak Velocity: 0.53 m/s Right Ventricle Aorta AO Root Diam: 2.91 cm Aortic Valve AoV Area (Peak Kwadwo): 2.58 cm2, 2.58 cm2 AoV Area (VTI): 2.88 cm2, 2.88 cm2 Peak Velocity(Antegrade Flow): 1.08 m/s Peak Gradient(Antegrade Flow): 4.65 mm[Hg] Mean Velocity(Antegrade Flow): 0.63 m/s Mean Gradient(Antegrade Flow): 1.98 mm[Hg] Velocity Time Integral: 20.26 cm Tricuspid Valve Pulmonic Valve Mean Gradient: 1.22 mm[Hg] Mean Velocity: 0.51 m/s Peak Velocity: 0.84 m/s Peak Gradient: 2.81 mm[Hg] Right Atrium Right Atrium Systolic Pressure: 92.35 ml, 92.35 ml Dictated by: Tree Jenkins M.D. on 09/02/2025 at 18:47 Approved by: Tree Jenkins M.D. on 09/02/2025 at 18:54
== END 2025-09-02 13:50 | disposition home or self-care (01) ==
LOC: CARD 13:49
PROVIDERS: PCP Family Medicine; Visit Provider Nurse Practitioner Family
DX: I73.9 Peripheral vascular disease, unspecified (principal); R53.83 Other fatigue; I48.3 Typical atrial flutter; Z98.890 Other specified postprocedural states; Z86.79 Personal history of other diseases of the circulatory system; I25.708 Atherosclerosis of coronary artery bypass graft(s), unspecified, with other forms of angina pectoris; I50.22 Chronic systolic (congestive) heart failure; E02 Subclinical iodine-deficiency hypothyroidism
CPT/HCPCS: 93306; 93924